=== PATIENT | female | born 1935 | race Caucasian/White ===

== ENCOUNTER → 2016-03-30 | Outpatient (CLI) | payer MEDICARE ==
[~2016-03-30] MED LIST: AMLO5TAB2 GT; AMLO5TAB2 PO; ASP81TEC PO; ATOR20TA66 PO; BNZ20T PO; ESCT10T PO; EZET1TAB44 PO; IRON1CAP10 PO; IRON1CAP11 PO; LOTENSIN HCT PO; METO-272 PO; NFNEB10T PO; OMEP-10 PO; POTA10CA43 PO; UBID50CA PO
--- OUTSIDE RECORDS SUMMARY | 2016-03-30 08:45 | XMS REPORT | Continuity of Care Document ---
Author Author [facility] Organization [facility] Address Unknown Phone Unavailable Care Team Providers Care Records Management Specialist Name Role Phone Amilcar Alicea III PCP [phone] Source Comments Some departments are not documenting in the electronic medical record. If you do not see the information that you expected, contact Release of Information in the Health Information Management department at [phone] for further assistance in locating additional records.[facility] Active Allergies and Adverse Reactions Allergen Noted Date Severity Reactions Comments Pcn 06/17/2015 Low UNKNOWN Current Medications Prescription Sig. Disp. Refills Start End Date Status Date CALCIUM CARBONATE/VITAMIN Take by mouth. Active D3 (VITAMIN D-3 PO) amLODIPine (NORVASC) 5 mg Take 5 mg by mouth daily. Active tablet benazepril (LOTENSIN) 20 Take 20 mg by mouth Active mg tablet daily. nebivolol (BYSTOLIC) 10 Take 10 mg by mouth Active mg tablet daily. metoclopramide HCl Take 5 mg by mouth four Active (REGLAN) 5 mg tablet times daily. atorvastatin (LIPITOR) 10 Take 10 mg by mouth Active mg tablet daily. aspirin EC 81 mg tablet Take 81 mg by mouth Active daily. CYANOCOBALAMIN (VITAMIN Take by mouth. Active B-12) (VITAMIN B-12 PO) Active Problems Problem Noted Date Left thyroid nodule 06/17/2015 Neck mass 06/17/2015 Social History Tobacco Use Types Packs/Day Years Used Date Never Smoker Smokeless Tobacco: Never Used Alcohol Use Drinks/Week oz/Week Comments No Last Filed Vital Signs Vital Sign Reading Time Taken Blood Pressure 146/75 10/28/2015 10:42 AM CDT Pulse 66 10/28/2015 10:42 AM CDT Temperature 36.5 C (97.7 F) 07/12/2015 9:06 AM CDT Respiratory Rate - - Height 1.549 m (5' 1") 10/28/2015 10:42 AM CDT Weight 83.553 kg (184 lb 3.2 oz) 10/28/2015 10:42 AM CDT Body Mass Index 34.82 10/28/2015 10:42 AM CDT Oxygen Saturation 98% 07/12/2015 11:15 AM CDT Plan of Care Date Type Specialty Providers Description 05/04/2016 Appointment Radiology Elvira Valerio MD [address] [facility] [place] [address] [place] [address] [phone] (Fax) 05/04/2016 Appointment Otolaryngology Elvira Valerio MD [address] [facility] [address] [place] [address] [phone] (Fax) Health Maintenance Due Date Last Done Comments Physical (Comprehensive) 12/18/1942 Exam Pertussis Vaccine 12/18/1946 Tetanus Vaccine 12/18/1952 Shingles Vaccine 1995 Osteoporosis Screening 12/18/2000 Prevnar/Pneumovax (#1) 12/18/2000 Influenza Vaccine 11/21/2015 Results from Last 3 Months Not on file
--- NOTE | 2016-03-31 09:27 | ECHOCARDIOGRAPHY REPORT ---
PROCEDURE PHYSICIAN: MARIA ELENA DUDLEY DATE OF PROCEDURE: 03/30/2016 TWO DIMENSIONAL ECHOCARDIOGRAM REPORT PRIMARY PHYSICIAN: OTHER PHYSICIAN: REFERRING PHYSICIAN: Dr. Alicea ORDERING PHYSICIAN: INDICATION FOR THE PROCEDURE: Valvular heart disease, aortic regurgitation MEASUREMENTS DERIVED VALUES LV DIAMETER (LAX) NORMALS NORMALS Diastolic 5.1 (3.6-5.2) Eject. Fract. 60% (60%+/-6%) Systolic (2.3-3.9) Diastolic Vol. % Shortening (0.22-0.42) Systolic Vol. Aortic Root IVS THICKNESS Diastolic 1.1 (0.6-1.1) LVPW THICKNESS Diastolic 1.1 (0.6-1.1) LA DIAMETER Systolic 5.4 (2.1-3.7) FINDINGS: 1. Technical quality is good. 2. The left ventricle is normal in size with normal with normal contractility. Systolic function appeared to be normal. Estimated ejection fraction 60%. 3. The left atrium is dilated. No clot or thrombus were seen within the left atrium. 4. The right atrium and right ventricle are normal in size. No clot or thrombus were seen within the right side. 5. Mitral valve evaluation showed mitral annular calcification with myxomatous degeneration of the mitral leaflet. No mitral valve prolapse. No mitral valve stenosis. Color Doppler flow across the mitral valve showed mild mitral regurgitation. Doppler across the mitral valve showed pseudonormalization of E:A which is suggestive diastolic dysfunction. 6. Aortic valve leaflet appeared to be normal. There is no significant aortic valve stenosis. Mild to moderate aortic regurgitation noted by color Doppler flow. 7. Tricuspid valve is normal in morphology with mild tricuspid regurgitation noted by color Doppler flow. Doppler across tricuspid valve estimated pulmonary artery pressure of 35+ right atrial pressure. 8. Pulmonic valve is functioning normally. 9. No pericardial effusion. CONCLUSION: 1. Normal left ventricular size and systolic function. Estimated ejection fraction 60%. 2. Left atrial enlargement. 3. Diastolic dysfunction is suggested by Doppler. 4. Mild to moderate aortic regurgitation. 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 5. Estimated pulmonary artery pressure of 40 to 45 mmHg. Job ID: [id number] Dictated Date: 03/30/2016 16:38:58 Video Systems Engineer Date: 03/31/2016 09:21:20 / nadira
== END ==
LOC: CARD 08:41
PROVIDERS: ATTEND Physician Assistant
DX: I35.1 Nonrheumatic aortic (valve) insufficiency (principal); I65.23 Occlusion and stenosis of bilateral carotid arteries; I10 Essential (primary) hypertension; E78.2 Mixed hyperlipidemia
CPT/HCPCS: 93306

== ENCOUNTER 2016-09-11 23:15 | Observation (INO) | payer MEDICARE ==
[~2016-09-11] VITALS: Ht 157.5 cm; Wt 79.4 kg
[2016-09-11] MEDS ORDERED: fentaNYL INJECTION 100 MCG/2 ML AMP IVP STA (23:35)
[2016-09-11] MEDS ORDERED: NS IV 1000 ML 1,000 ML IV ONE (23:35)
[2016-09-11] MEDS ORDERED: METO5TAB2 (23:38)
[2016-09-11 23:41] LABS: BASOPHILS % (AUTO) 0 % (0-10); EOSINOPHILS # (AUTO) 0.2 10^3/uL (0.0-0.3); EOSINOPHILS % (AUTO) 2 % (0-10); LYMPHOCYTES # (AUTO) 3.4 X 10^3 (1.0-4.0); LYMPHOCYTES % (AUTO) 33 % (12-44); MEAN CORPUSCULAR HEMOGLOBIN 22 PG (25-34); MEAN CORPUSCULAR HGB CONC 32 G/DL (32-36); MEAN CORPUSCULAR VOLUME 70 FL (80-99); MEAN PLATELET VOLUME 9.9 FL (7.4-10.4); MONOCYTES # (AUTO) 1.1 X 10^3 (0.0-1.0); MONOCYTES % (AUTO) 11 % (0-12); NEUTROPHILS # (AUTO) 5.7 X 10^3 (1.8-7.8); NEUTROPHILS % (AUTO) 54 % (42-75); PLATELET COUNT 302 10^3/uL (130-400); RED CELL DISTRIBUTION WIDTH 17.6 % (10.0-14.5); WHITE BLOOD COUNT 10.6 10^3/uL (4.3-11.0)
[2016-09-11] MEDS ORDERED: TETANUS,DIPTH,PERTUSS P/F (BOOSTRIX) 0.5 ML VIAL IM ONE (23:45)
[2016-09-11 23:53] LABS: INR 1.1 (0.8-1.4); PROTHROMBIN TIME PATIENT 13.7 SEC (12.2-14.7)
[2016-09-12 00:01] LABS: ALANINE AMINOTRANSFERASE 6 U/L (0-55); ALBUMIN 3.1 GM/DL (3.2-4.5); ANION GAP 10 MMOL/L (5-14); ASPARTATE AMINO TRANSFERASE 11 U/L (5-34); BILIRUBIN,TOTAL 0.5 MG/DL (0.1-1.0); BLOOD UREA NITROGEN 9 MG/DL (7-18); BUN/CREATININE RATIO 11 (0-20); CALCIUM 8.7 MG/DL (8.5-10.1); CARBON DIOXIDE 22 MMOL/L (21-32); CHLORIDE 106 MMOL/L (98-107); CREATININE SERUM 0.85 MG/DL (0.60-1.30); GFR ESTIMATED > 60; GLUCOSE 171 MG/DL (70-105); HEMOLYSIS 4 (-100-29); ICTERUS 0.4 (-100-1.9); LIPEMIA 8 (-100-49); MAGNESIUM 1.6 MG/DL (1.8-2.4); POTASSIUM 3.5 MMOL/L (3.6-5.0); SODIUM 138 MMOL/L (135-145); TOTAL PROTEIN 6.3 GM/DL (6.4-8.2)
--- NOTE | 2016-09-12 00:06 | ED Fall/Injury ---
General Chief Complaint: Trauma-Non Activation Stated Complaint: RT WRIST INJURY Nursing Triage Note: fall from standing position, right wrist pain, bruise to right forehead. no loc. Source: patient History of Present Illness Time seen by provider: 23:25 Initial Comments PT ARRIVES VIA POV FROM HOME WITH FAMILY MEMBERS PT STATES SHE GOT LIGHTHEADED AND WEAK AND FELL--DID NOT COMPLETELY LOSE CONSCIOUSNESS PT LANDED ON THE FLOOR WAS WITNESSED BY MULTIPLE FAMILY MEMBERS C/O RIGHT WRIST PAIN--PT FRACTURED THIS WRIST IN , BUT NO SURGERY REQUIRED. ALSO HIT RIGHT FOREHEAD ON THE FLOOR NO VISION CHANGES NO NAUSEA/VOMITING NO CHEST PAIN OR SHORTNESS OF BREATH NO PALPITATIONS PT IS LEFT HANDED PT STATES SHE HAS BEEN GETTING LIGHTHEADED LATELY--STATES SHE IS ON 3 BP MEDICATIONS AND THINKS LATELY THEY HAVE BEEN CAUSING HER TO FEEL THIS WAY-- THINKS BP IS GETTING TOO LOW Location Injury Occurred: home PCP: DR. RAMESH WOOL AND PELT GRADER: DR. DUDLEY Allergies and Home Medications Allergies Coded Allergies: No Known Drug Allergies (Unverified , 01/02/10) Home Medications Amlodipine Besylate 5 Mg Tab, 5 MG GT, (Reported) Aspirin 81 Mg Tabec, 81 MG PO DAILY, (Reported) Atorvastatin 20 Mg Tablet, 20 MG PO HS, (Reported) Benazepril Hcl 20 Mg Tablet, 20 MG PO DAILY, (Reported) Iron Aspgly&Ps/C/B12/Fa/Ca/Suc 1 Each Capsule, 1 CAP PO DAILY, (Reported) Metoclopramide HCl 5 Mg Tablet, #90 (Reported) Nebivolol Hcl 10 Mg Tablet, 10 MG PO DAILY, (Reported) Omeprazole 20 Mg Capsule.dr, 20 MG PO DAILY, (Reported) Constitutional: see HPI, dizziness, weakness Eyes: No Symptoms Reported Ears, Nose, Mouth, Throat: no symptoms reported Respiratory: no symptoms reported Cardiovascular: No chest pain, No edema, No palpitations, No vascular heart diseas, other (NEAR-SYNCOPE/LIGHTHEADED) Gastrointestinal: no symptoms reported Genitourinary: no symptoms reported Musculoskeletal: see HPI (RIGHT WRIST PAIN WITH 2 LACERATIONS TO RIGHT WRIST) Skin: see HPI (2 LACERATIONS TO RIGHT WRIST) Psychiatric/Neurological: See HPI, Denies Headache, Denies Numbness, Denies Paresthesia, Denies Seizure, Denies Tingling, Denies Tremors Past Anfofsu-Nsoifg-Vfmpky Hx Patient Social History Alcohol Use: Denies Use Recreational Drug Use: No Smoking Status: Never a Smoker 2nd Hand Smoke Exposure: No Recent Foreign Travel: No Contact w/Someone Who Travel: No Recent Infectious Disease Expo: No Recent Hopitalizations: No Immunizations Up To Date Tetanus Booster (TDap): More than 5yrs PED Vaccines UTD: Yes Date of Pneumonia Vaccine: Aug 20, 2012 Date of Influenza Vaccine: Nov 20, 2014 Seasonal Allergies Seasonal Allergies: No Surgeries HX Surgeries: Yes (t&a,appy hysterectomy,gallbladder,thyroid,cataracts) Surgeries: Adenoidectomy, Appendectomy, Eye Surgery, Gallbladder, Hysterectomy , Thyroidectomy, Tonsillectomy Respiratory Hx Respiratory Disorders: No Cardiovascular Hx Cardiac Disorders: Yes (IRREGULAR HEART BEAT- irregular ekg) Cardiac Disorders: High Cholesterol, Hypertension Neurological Hx Neurological Disorders: No Reproductive System : No Hx Reproductive Disorders: No 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 Genitourinary Hx Genitourinary Disorders: No Gastrointestinal Hx Gastrointestinal Disorders: Yes Gastrointestinal Disorders: Gastroesophageal Reflux Musculoskeletal Hx Musculoskeletal Disorders: Yes (RIGHT WRIST FX -NO SURGERY) Endocrine Hx Endocrine Disorders: Yes (PARATHYROIDECTOMY in ) Endocrine Disorders: Parathyroid Disease HEENT HX ENT Disorders: Yes (both cataracts removed) HEENT Disorders: Cataract Loss of Vision: Denies Hearing Impairment: Denies Cancer Hx Cancer: No Psychosocial Hx Psychiatric Problems: No Integumentary HX Skin/Integumentary Disorder: No Blood Transfusions Hx Blood Disorders: No Adverse Reaction to a Blood Tr: No Physical Exam Vital Signs Vital Sign - Last 12Hours 09/11/ 23:38 Temp 97.5 Pulse 53 Resp 16 B/P (MAP) 74/48 Pulse Ox 93 O2 Delivery Room Air Capillary Refill : Less Than 3 Seconds General Appearance: WD/WN, no apparent distress HEENT: PERRL/EOMI, TMs normal, pharynx normal, other (HEMATOMA TO RIGHT FOREHEAD/SIKHISM AREA. ) Neck: non-tender, full range of motion, supple, normal inspection Cardiovascular: normal peripheral pulses, regular rate, rhythm, no edema, no JVD, no murmur Respiratory: normal breath sounds, no respiratory distress, no accessory muscle use Peripheral Pulses: 2+ Radial Pulses (R), 2+ Radial Pulses (L) Gastrointestinal: normal bowel sounds, non tender, soft, no organomegaly, no pulsatile mass Back: normal inspection, no CVA tenderness, no vertebral tenderness Extremities: no pedal edema, no calf tenderness, normal capillary refill, other (DEFORMITY, SWELLING AND TENDERNESS TO RIGHT WRIST. 2 LINEAR FULL- THICKNESS LACERATIONS TO ANTERIOR ASPECT OF RIGHT WRIST--EACH 1 1/2-2 CM IN LENGTH. DISTAL MOTOR/SENSORY/VASCULAR INTACT) Neurologic/Psychiatric: polysomnographer II-XII nml as tested, no motor/sensory deficits, alert, normal mood/affect, oriented x 3 Skin: normal color, warm/dry Kwasi Coma Score Best Eye Response: (4) Open Spontaneously Best Verbal Response: (5) Oriented Best Motor Response: (6) Obeys Commands Manquin Total: 15 Progress/Results/Core Measures Results/Orders Lab Results Laboratory Tests Test 09/11/16 23:35 Range/Units White Blood Count 10.6 4.3-11.0 10^3/uL Red Blood Count 4.80 4.35-5.85 10^6/uL Hemoglobin 10.6 L 11.5-16.0 G/DL Hematocrit 34 L 35-52 % Mean Corpuscular Volume 70 L 80-99 FL Mean Corpuscular Hemoglobin 22 L 25-34 PG Mean Corpuscular Hemoglobin Concent 32 32-36 G/DL Red Cell Distribution Width 17.6 H 10.0-14.5 % Platelet Count 302 130-400 10^3/uL Mean Platelet Volume 9.9 7.4-10.4 FL Neutrophils (%) (Auto) 54 42-75 % Lymphocytes (%) (Auto) 33 12-44 % Monocytes (%) (Auto) 11 0-12 % Eosinophils (%) (Auto) 2 0-10 % Basophils (%) (Auto) 0 0-10 % Neutrophils # (Auto) 5.7 1.8-7.8 X 10^3 Lymphocytes # (Auto) 3.4 1.0-4.0 X 10^3 Monocytes # (Auto) 1.1 H 0.0-1.0 X 10^3 Eosinophils # (Auto) 0.2 0.0-0.3 10^3/uL Basophils # (Auto) 0.0 0.0-0.1 10^3/uL Prothrombin Time 13.7 12.2-14.7 SEC INR Comment 1.1 0.8-1.4 Activated Partial Thromboplast Time 31 24-35 SEC Sodium Level 138 135-145 MMOL/L Potassium Level 3.5 L 3.6-5.0 MMOL/L Chloride Level 106 98-107 MMOL/L Carbon Dioxide Level 22 21-32 MMOL/L Anion Gap 10 5-14 MMOL/L Blood Urea Nitrogen 9 7-18 MG/DL Creatinine 0.85 0.60-1.30 MG/DL Estimat Glomerular Filtration Rate > 60 BUN/Creatinine Ratio 11 0-20 Glucose Level 171 H 70-105 MG/DL Calcium Level 8.7 8.5-10.1 MG/DL Magnesium Level 1.6 L 1.8-2.4 MG/DL Total Bilirubin 0.5 0.1-1.0 MG/DL Aspartate Amino Transf (AST/SGOT) 11 5-34 U/L Alanine Aminotransferase (ALT/SGPT) 6 0-55 U/L Alkaline Phosphatase 64 40-136 U/L Troponin I < 0.30 <0.30 NG/ML Total Protein 6.3 L 6.4-8.2 GM/DL Albumin 3.1 L 3.2-4.5 GM/DL TSH [place] Testing 2.32 0.35-4.94 UIU/ML My Orders Orders - MELANIE WEST DO Saline Lock/Iv-Start (09/11/16 23:35) Ekg Tracing (09/11/16 23:35) Monitor-Rhythm Ecg Trace Only (09/11/16 23:35) Ct Head/Cervical Spine Wo (09/11/16 23:35) Cbc With Automated Diff (09/11/16 23:35) Comprehensive Metabolic Panel (09/11/16 23:35) Magnesium (09/11/16 23:35) Protime With Inr (09/11/16 23:35) Partial Thromboplastin Time (09/11/16 23:35) Thyroid Analyzer (09/11/16 23:35) Troponin I (09/11/16 23:35) Ua Culture If Indicated (09/11/16 23:35) Saline Lock/Iv-Start (09/11/16 23:35) Ns Iv 1000 Ml (Sodium Chloride 0.9%) (09/11/16 23:35) Fentanyl Injection (Sublimaze Injection (09/11/16 23:35) Dipht,Pertuss(Acell),Tet Adult (Boostrix (09/11/16 23:45) Chest 1 View, Ap/Pa Only (09/12/16 23:35) Forearm, Right, 2 Views (09/12/16 23:35) Wrist, Right, 3 Views Or More (09/12/16 23:35) Pelvis (09/12/16 23:35) Cefazolin Injection (Ancef Injection) (09/12/16 00:30) Medications Given in ED Current Medications Medications Dose Ordered Sig/Dariusz Route Start Time Stop Time Status Last Admin Dose Admin Cefazolin Sodium 1000 mg/Sodium Chloride 50 ml @ 100 mls/hr ONCE ONCE IV 09/12/16 00:30 09/12/16 01:00 DC 09/12/16 00:31 100 MLS/HR Diphtheria/ Tetanus/Acell Pertussis 0.5 ml ONCE ONCE IM 09/11/16 23:45 09/11/16 23:46 DC 09/11/16 23:47 0.5 ML Sodium Chloride 1,000 ml @ 0 mls/hr Q0M ONCE IV 09/11/16 23:35 09/11/16 23:38 DC 09/11/16 23:46 0 MLS/HR Vital Signs/I&O Vital Sign - Last 12Hours 09/11/16 23:38 Temp 97.5 Pulse 53 Resp 16 B/P (MAP) 74/48 Pulse Ox 93 O2 Delivery Room Air Blood Pressure Mean: 57 ECG Initial ECG Impression Time: 23:38 Initial ECG Rate: 54 Initial ECG Rhythm: Normal Sinus Initial ECG Impression: Nonspecific Changes Initial ECG Comparisson: Unchanged Diagnostic Imaging Comments CXR--MILD CHF/CARDIOMEGALY XRAYS PELVIS--NO ACUTE PROCESS XRAYS RIGHT FOREARM AND WRIST--COMMINUTED, DISPLACED FX'S OF DISTAL RADIUS AND ULNA ALL PENDING RADIOLOGIST REVIEW CT HEAD--NO ACUTE PROCESS, OTHER THAN RIGHT FRONTAL SCALP SWELLING--PER [facility] VIA FAX @[id number] CT CERVICAL SPINE Reviewed: Reviewed by Me Departure Communication Progress Notes 0020--CALLED DR. JUSTICE, WILL BE IN TO SEE PT 0040--DR. JUSTICE CALLED. HE WOULD LIKE SURGERY CREW CALLED IN 005--OFFICE ASSISTANCE HERE TO SEE PT 0120--DR. JUSTICE HERE TO SEE PT. CARE TURNED OVER TO HIM. Impression Impression: Primary Impression: OPEN DISPLACED COMMINUTED FRACTURE RIGHT DISTAL RADIUS AND ULNA Additional Impressions: Head contusion Near syncope Transient hypotension Ayvzjewtfs-zxzfsgjep-ouzzghl (DPT) vaccination administered at current visit Disposition: ADMITTED INPATIENT (TO SURGERY) Condition: Stable Decision to Admit Reason: Admit from ER (Trauma) (TO SURGERY) Departure-Patient Inst. Referrals: JENAE RAMESH DO (PCP/Family) Primary Care Physician Images Full Body/Extremities Full Progress SEE ADDITIONAL PAPER DIAGRAMS FOR IMAGES MELANIE WEST DO Sep 12, 2016 00:06
[2016-09-12 00:21] LABS: TROPONIN I < 0.30 NG/ML (<0.30)
[2016-09-12] MEDS ORDERED: ceFAZolin INJECTION 1,000 MG in NS (IVPB) 50 ML IV ONE (00:30)
[2016-09-12] MEDS ORDERED: LACTATED RINGERS 1,000 ML IV PRN (01:23)
[2016-09-12] MEDS ORDERED: LIDOCAINE PF 2% 5 ML (XYLOCAINE) VIAL ONE (01:25)
[2016-09-12] MEDS ORDERED: proPOfol 200 MG/20 ML (DIPRIVAN) VIAL IV ONE (01:25)
[2016-09-12] MEDS ORDERED: SUCCINYLCHOLINE INJ 100 MG/5 ML SYR ONE (01:25)
[2016-09-12] MEDS ORDERED: fentaNYL INJECTION 100 MCG/2 ML AMP ONE ×3 (01:26→05:11)
--- NOTE | 2016-09-12 01:43 | Consultation ---
History of Present Illness History of Present Illness Patient Consulted On(tc/time) 09/12/16 01:38 Date of Admission History of Present Illness 80 y/o white female, left handed, fell this evening injuring her right non- dominate wrist and hitting her right yazdanism. She had prior wrist fracture years ago. Denies any other complaints of pain. Denies any other fracture history. Allergies and Home Medications Allergies Coded Allergies: No Known Drug Allergies (Unverified , 01/02/10) Home Medications Amlodipine Besylate 5 Mg Tab, 5 MG GT, (Reported) Aspirin 81 Mg Tabec, 81 MG PO DAILY, (Reported) Atorvastatin 20 Mg Tablet, 20 MG PO HS, (Reported) Benazepril Hcl 20 Mg Tablet, 20 MG PO DAILY, (Reported) Iron Aspgly&Ps/C/B12/Fa/Ca/Suc 1 Each Capsule, 1 CAP PO DAILY, (Reported) Metoclopramide HCl 5 Mg Tablet, #90 (Reported) Nebivolol Hcl 10 Mg Tablet, 10 MG PO DAILY, (Reported) Omeprazole 20 Mg Capsule.dr, 20 MG PO DAILY, (Reported) Past Qnfmjqh-Tqwaoa-Prmavy Hx Patient Social History Alcohol Use: Denies Use Recreational Drug Use: No Smoking Status: Never a Smoker 2nd Hand Smoke Exposure: No Recent Foreign Travel: No Contact w/Someone Who Travel: No Recent Infectious Disease Expo: No Recent Hopitalizations: No Immunizations Up To Date Tetanus Booster (TDap): More than 5yrs PED Vaccines UTD: Yes Date of Pneumonia Vaccine: Aug 20, 2012 Date of Influenza Vaccine: Nov 20, 2014 Seasonal Allergies Seasonal Allergies: No Surgeries HX Surgeries: Yes (t&a,appy hysterectomy,gallbladder,thyroid,cataracts) Surgeries: Adenoidectomy, Appendectomy, Eye Surgery, Gallbladder, Hysterectomy , Thyroidectomy, Tonsillectomy Respiratory Hx Respiratory Disorders: No Cardiovascular Hx Cardiac Disorders: Yes (IRREGULAR HEART BEAT- irregular ekg) Cardiac Disorders: High Cholesterol, Hypertension Neurological Hx Neurological Disorders: No Reproductive System : No Hx 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 Genitourinary Hx Genitourinary Disorders: No Gastrointestinal Hx Gastrointestinal Disorders: Yes Gastrointestinal Disorders: Gastroesophageal Reflux Musculoskeletal Hx Musculoskeletal Disorders: Yes (RIGHT WRIST FX -NO SURGERY) Endocrine Hx Endocrine Disorders: Yes (PARATHYROIDECTOMY in ) Endocrine Disorders: Parathyroid Disease HEENT HX ENT Disorders: Yes (both cataracts removed) HEENT Disorders: Cataract Loss of Vision: Denies Hearing Impairment: Denies Cancer Hx Cancer: No Psychosocial Hx Psychiatric Problems: No Integumentary HX Skin/Integumentary Disorder: No Blood Transfusions Hx Blood Disorders: No Adverse Reaction to a Blood Tr: No Review of Systems-General Time Seen by Provider: 01:40 Constitutional: no symptoms reported EENTM: no symptoms reported Respiratory: no symptoms reported Cardiovascular: no symptoms reported Gastrointestinal: no symptoms reported Musculoskeletal: joint pain Skin: other (open wound right wrist) Physical Exam-General Problems Physical Exam Vital Signs Vital Sign - Last 12Hours 09/11/16 23:38 Temp 97.5 Pulse 53 Resp 16 B/P (MAP) 74/48 Pulse Ox 93 O2 Delivery Room Air Capillary Refill : Less Than 3 Seconds General Appearance: mild distress Eyes: Bilateral Eye Normal Inspection HEENT: normal ENT inspection Neck: non-tender, supple, normal inspection Respiratory: chest non-tender, no respiratory distress, no accessory muscle use Cardiovascular: normal peripheral pulses, regular rate, rhythm Gastrointestinal: non tender, soft, no organomegaly Rectal: deferred Back: no CVA tenderness, no vertebral tenderness Extremities: other (left upper and bilateral lower extremitites fail to show signs of any significant trauma. Right upper extremity has open fracture at wrist, with obvious deformity.) Skin: normal color Lymphatic: no adenopathy Comments xrays show displaced distal 1/3 radius and comminuted ulna fractures on right. Assessment/Plan Assessment/Plan Admission Diagnosis/Plan Right open Distal radial shaft/ulna shaft fractures Plan: Irrigation and debridement and external fixation. SE JUSTICE MD Sep 12, 2016 01:43
[2016-09-12] MEDS ORDERED: ceFAZolin 1,000 MG (ANCEF) VIAL ONE (02:07)
[2016-09-12] MEDS ORDERED: SEVOFLURANE (ULTANE) 15 ML INHAL SOLN ONE (02:07)
[2016-09-12] MEDS ORDERED: ONDANSETRON 4 MG/2 ML (SDV) Z0FRAN ONE (02:07)
[2016-09-12] MEDS ORDERED: morphine INJ 10 MG/ML 1ML (SYR OR VIAL) ONE (02:26)
[2016-09-12] MEDS ORDERED: MEPERIDINE (DEMEROL) INJ 50 MG/ML ONE (02:27)
[2016-09-12] MEDS ORDERED: ceFAZolin 1,000 MG (ANCEF) VIAL IV ONE (02:30)
--- NOTE | 2016-09-12 02:57 | Progress Note-Post Operative ---
Post-Operative Progess Note Surgeon (s)/Plastic Fixture Builder (s) Surgeon SE JUSTICE MD Plastic Fixture Builder: None Pre-Operative Diagnosis Right open distal 1/3 radius/ulna shaft fractures Post-Operative Diagnosis same Procedure & Operative Findings Date of Procedure 09/12/16 Procedure Performed/Findings Irrigation and debridement of open fracture skin and sub cutaneous External fixation uniplaner Closed treatment of radius and ulna shaft fractures distal Anesthesia Type GETA Estimated Blood Loss Estimated blood loss (mL): Min Specimens/Packing Specimens Removed none SE JUSTICE MD Sep 12, 2016 2:57 am
[2016-09-12] MEDS ORDERED: METOCLOPRAMIDE INJ 10 MG/2 ML (REGLAN) IV PRN (03:00)
[2016-09-12] MEDS ORDERED: PROMETHAZINE INJ 25 MG/ML (PHENERGAN) AMP IV PRN (03:00)
[2016-09-12] MEDS ORDERED: ONDANSETRON 4 MG/2 ML (SDV) Z0FRAN IV PRN (03:00)
[2016-09-12] MEDS ORDERED: HYDROcodone/APAP 10 MG/325 MG (LORTAB) TAB PO PRN (03:00)
[2016-09-12] MEDS ORDERED: ONDANSETRON 4 MG/2 ML (SDV) Z0FRAN IVP PRN (03:15)
[2016-09-12] MEDS: morphine INJ 10 MG/ML 1ML (SYR OR VIAL) IVP PRN ×2 (03:25→03:30)
[2016-09-12 04:10] VITALS: BP 121/67
--- NOTE | 2016-09-12 05:04 | OPERATIVE REPORT ---
DATE OF SERVICE: 09/12/2016 PREOPERATIVE DIAGNOSES: Right open distal third radius and ulnar shaft fractures, comminuted. POSTOPERATIVE DIAGNOSES: Right open distal third radius and ulnar shaft fractures, comminuted. PROCEDURE PERFORMED: 1. Irrigation and debridement, skin and subcutaneous tissue of open fracture, right wrist. 2. Uniplanar external fixator, right distal radius. 3. Closed treatment of right open distal third of radial shaft and ulnar fractures. DATE AND TIME OF SURGERY: Please see anesthesia record. IMPLANTS USED: [place] monotube. SURGEON: Se Rodriguez MD FARMWORKERS: No front office assistant. ANESTHESIA: General endotracheal. ESTIMATED BLOOD LOSS: Minimal. IV FLUIDS: Please see anesthesia record. ANTIBIOTICS: Ancef. COMPLICATIONS: None. INDICATIONS FOR PROCEDURE: The patient is an 80-year-old female who fell at home sustaining the above injury. After the risks, benefits, alternatives were discussed with her and her family, they elected to proceed with operative intervention. DESCRIPTION OF PROCEDURE: The patient was taken from the preoperative holding area and brought back to the operative suite. After adequate induction of general anesthetic, preoperative antibiotics, sterilely prepped and draped right upper extremity. Arm, skin and subcutaneous tissue were copiously irrigated with antibiotic-enhanced irrigant. Once the wounds were cleansed, small incision was made over the distal radius with fluoroscopic guidance in the mid radius and then utilizing the drill guide for the monotube from the monotube external fixator set, Schanz pins were placed into the distal radius and the radial shaft and then the monotube fixator was placed. Reduction was achieved. Final tightening was performed. Final imaging was obtained. It was stable under fluoroscopic evaluation. Wounds were then closed with a single nylon. Sterile dressings applied and the patient was transferred to the recovery room in stable condition and tolerated the procedure well. 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
--- NOTE | 2016-09-12 06:39 | Diagnostic Imaging Report ---
PROCEDURE: CT head and CT cervical spine without contrast. TECHNIQUE: Multiple contiguous axial images were obtained through the brain and cervical spine without the use of intravenous contrast. Sagittal and coronal reformations through the cervical spine were then performed. INDICATION: Fall, dizziness. COMPARISON: No priors. FINDINGS: CT head: There is no intracranial hemorrhage, hydrocephalus, edema, mass, or mass effect. Mild chronic white matter disease and slight senescent cortical atrophy noted as chronic findings. No calvarial fracture deformity is identified. There is mild right frontal scalp swelling. CT cervical spine: Spondylosis greatest at the C5-C6 level results in vnom-ci-lyykgrfr canal stenosis. No cervical fracture or paravertebral hemorrhage. The skull base appears intact. No acute or posttraumatic sequelae. IMPRESSION: CT head: Mild chronic senescent changes and soft tissue swelling. No hemorrhage or fracture deformity. CT cervical spine: Cervical degenerative changes without fracture or traumatic malalignment. Dictated by: Dictated on workstation # [id number]
--- NOTE | 2016-09-12 08:07 | Diagnostic Imaging Report ---
INDICATION: Fall FINDINGS: The heart is enlarged. There is some prominence of central and upper lobe pulmonary venous structures. No sara edema. Heart size and vascular caliber progressed from the comparison study performed in 2013. There is some patchy infiltrate or atelectasis in the medial left lung base. IMPRESSION: Increased cardiomegaly and vascular congestion. No sara edema however there is infiltrate or atelectasis in the medial left lower lobe. Dictated by: Dictated on workstation # [id number]
--- NOTE | 2016-09-12 08:08 | Diagnostic Imaging Report ---
INDICATION: Fractures. There are comminuted fractures of both distal radius and ulna. 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 There is widening of the distal radioulnar joint. Fracture fragment overlaps both the radius and ulna present. The major distal fragments are only mildly displaced laterally. Proximal shafts and elbow grossly unremarkable. IMPRESSION: Displaced comminuted fractures of the distal radius and ulna. Dictated by: Dictated on workstation # [id number]
--- NOTE | 2016-09-12 08:09 | Diagnostic Imaging Report ---
INDICATION: Pain. FINDINGS: There is no fracture, dislocation, or acute articular incongruity. IMPRESSION: No acute-appearing abnormality. Dictated by: Dictated on workstation # [id number]
--- NOTE | 2016-09-12 08:10 | Diagnostic Imaging Report ---
INDICATION: Fracture FINDINGS: Comminuted displaced fractures of the distal radius and ulna. 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 No carpal fracture evident. No appreciable articular involvement. IMPRESSION: Distal radial and ulnar fractures without articular injury evident. There is radial greater than ulnar displacement with radial overlap and foreshortening of about 1.5 cm. Dictated by: Dictated on workstation # [id number]
[2016-09-12 08:30] VITALS: BP 131/64
--- NOTE | 2016-09-12 09:25 | Diagnostic Imaging Report ---
INDICATION: Fracture. IMPRESSION: Fluoroscopy time of one minute was utilized during external fixation of comminuted distal radial and ulnar fractures. When correlated with preoperative films there has been marked improvements in alignment with resolution of radial overlap. Dictated by: Dictated on workstation # [id number]
[2016-09-12 12:00] VITALS: BP 117/68
--- NOTE | 2016-09-12 12:48 | History & Physical-Hospitalist ---
HPI History of Present Illness: HPI/Chief Complaint CC: Medical management following a right open wrist fracture HPI: This is an 80-year-old white female clinic patient of Dr. Alicea'kamaljit with a past medical history of hypertension that fell at home and resulted in a right open wrist fracture that was repaired by Dr. Rodriguez in an uncomplicated manner. She now has an external fixator and her pain is controlled. She does report that she felt a little dizzy thought maybe she was taking too much blood pressure medication and I have held the bystolic because she reports the fatigue level and will evaluate if that can help with her symptoms. She is currently staying with her daughter in [place] because her air conditioner was out but will return back to her daughter's home to recover after she's discharge tomorrow. Source: patient Exam Limitations: no limitations Date Seen 09/12/16 Time Seen by Provider: 11:45 Attending Physician Yunior Rodriguez MD PCP Tera Alicea DO Referring Physician Date of Admission Sep 12, 2016 at 04:05 Home Medications & Allergies Home Medications Reviewed patient Home Medication Reconciliation Form Allergies Allergies Coded Allergies No Known Drug Allergies (Wyjosaauhg81/14/10) Past Usditpy-Yzowet-Mipcua Hx Patient Social History Marrital Status: Employed/Student: retired Alcohol Use: Denies Use Recreational Drug Use: No Smoking Status: Never a Smoker 2nd Hand Smoke Exposure: No Physical Abuse Screen: No Sexual Abuse: No Recent Foreign Travel: No Contact w/other who traveled: No Recent Hopitalizations: No Recent Infectious Disease Expo: No Immunizations Up To Date Tetanus Booster (TDap): More than 5yrs Date of Pneumonia Vaccine: Aug 20, 2012 Date of Influenza Vaccine: Nov 20, 2014 Seasonal Allergies Seasonal Allergies: No Surgeries HX Surgeries: Yes (t&a,appy hysterectomy,gallbladder,thyroid,cataracts) Surgeries: Adenoidectomy, Appendectomy, Eye Surgery, Gallbladder, Hysterectomy , Thyroidectomy, Tonsillectomy Respiratory Hx Respiratory Disorders: No Cardiovascular Hx Cardiovascular Disorders: Yes (IRREGULAR HEART BEAT- irregular ekg) Cardiac Disorders: High Cholesterol, Hypertension Neurological Hx Neurological Disorders: No Reproductive System : No Hx Reproductive Disorders: No Genitourinary Hx Genitourinary Disorders: No Gastrointestinal Hx Gastrointestinal Disorders: Yes Gastrointestinal Disorders: Gastroesophageal Reflux Musculoskeletal Hx Musculoskeletal Disorders: Yes (RIGHT WRIST FX 1990'S-NO SURGERY) Endocrine Hx Endocrine Disorders: Yes (PARATHYROIDECTOMY in s) Endocrine Disorders: Parathyroid Disease HEENT HX ENT Disorders: Yes (both cataracts removed) HEENT Disorders: Cataract Loss of Vision: Denies Hearing Impairment: Denies Cancer Hx Cancer: No Psychosocial Hx Psychiatric Problems: No Integumentary HX Skin/Integumentary Disorder: No Blood Transfusions Hx Blood Disorders: No Adverse Reaction to a Blood Tr: No Review of Systems Date Seen by Provider: Sep 12, 2016 Time Seen by Provider: 11:45 Constitutional: see HPI, dizziness, weakness EENTM: no symptoms reported Respiratory: no symptoms reported Cardiovascular: no symptoms reported Gastrointestinal: no symptoms reported Genitourinary: no symptoms reported Musculoskeletal: joint pain (right wrist) Skin: no symptoms reported Psychiatric/Neurological: No Symptoms Reported All Other Systems Reviewed Negative Unless Noted: Yes Physical Exam Physical Exam Vital Signs Vital Sign - Last 12Hours 09/11/16 09/12/16 23:38 08:30 Temp 97.5 Pulse 53 Resp 16 B/P (MAP) 74/48 Pulse Ox 93 O2 Delivery Room Air O2 Flow Rate 4.00 Capillary Refill : Less Than 3 SecondsLess Than 3 Seconds General Appearance: No Apparent Distress, WD/WN, Chronically ill Eyes: Bilateral Eye Normal Inspection, Bilateral Eye PERRL HEENT: PERRL/EOMI, Normal ENT Inspection, Pharynx Normal Neck: Full Range of Motion, Normal Inspection, Non Tender, Supple, Carotid Bruit Respiratory: Chest Non Tender, Lungs Clear, Normal Breath Sounds, No Accessory Muscle Use, No Respiratory Distress Cardiovascular: Regular Rate, Rhythm, No Edema, No Gallop, No JVD, No Murmur, Normal Peripheral Pulses Gastrointestinal: Normal Bowel Sounds, No Organomegaly, No Pulsatile Mass, Non Tender, Soft Back: Normal Inspection, No CVA Tenderness, No Vertebral Tenderness Extremity: Normal Capillary Refill, Normal Inspection, Normal Range of Motion ( except right wrist in external fixator), Non Tender, No Calf Tenderness, No Pedal Edema Neurologic/Psychiatric: Alert, Oriented x3, No Motor/Sensory Deficits, Normal Mood/Affect Skin: Normal Color, Warm/Dry Lymphatic: No Adenopathy Results Results/Procedures Lab Laboratory Tests 09/11/16 23:35 Assessment/Plan Admission Diagnosis Assessment: Fall with right open wrist fracture status post uncomplicated repair POD # 0 ( 0100 surgery) Hypertension with recent dizziness and weakness will hold bystolic hyperlipidemia GERD Chronic constipation Hyperparathyroidism Assessment and Plan Plan: Pain medication Reconcile all home meds but hold bystolic Fall risk Monitor closely Clinical Quality Measures DVT/VTE Risk/Contraindication: Risk Factor Score Per Nursin RFS Level Per Nursing on Admit: 4+=Very High MARKO ANDERS DO Sep 12, 2016 12:48
[2016-09-12 15:43] VITALS: BP 138/67
[2016-09-12] MEDS: METOCLOPRAMIDE 5 MG (REGLAN) TAB PO SCH ×2 (15:49→21:27)
[2016-09-12] MEDS: ACETAMINOPHEN 325 MG TABLET/CAPLET (TYLENOL) PO PRN ×2 (15:52→21:27)
[2016-09-12 20:59] VITALS: BP 135/70
[2016-09-12] MEDS ORDERED: ATORVASTATIN 20 MG (LIPITOR) TABLET PO SCH (21:00)
[2016-09-13] VITALS: BP 145/72
[2016-09-13 04:00] VITALS: BP 157/72
[2016-09-13] MEDS: METOCLOPRAMIDE 5 MG (REGLAN) TAB PO SCH ×2 (06:33→11:37)
[2016-09-13] MEDS ORDERED: SULF1TAB35 PO (07:00)
[2016-09-13] MEDS ORDERED: AMOX-358 PO (07:00)
[2016-09-13] MEDS ORDERED: PANTOPRAZOLE 20 MG TABLET (PROTONIX) PO SCH (07:00)
--- NOTE | 2016-09-13 07:03 | Discharge Instructions ---
Discharge Instructions Discharge Medications New, Converted or Re-Newed RX: RX on Chart Patient Instructions Goal/Follow Up Appt: Follow up with Dr. Rodriguez, in [place], on 09/16/16. Call [facility] tomorrow to schedule the appointment Patient Instructions: Keep dressing clean and dry Do not use right hand Call with questions or concerns Activity & Diet Activity as Tolerated: RAS Rivera Sep 13, 2016 07:03
--- NOTE | 2016-09-13 07:08 | Discharge Summary ---
Diagnosis/Chief Complaint Date of Admission Sep 12, 2016 at 04:05 Date of Discharge Discharge Time: 07:04 Admission Diagnosis Admission Diagnosis open right distal ulna/radius fracture Discharge Diagnosis open right distal ulna/radius fracture Reason Hospital Visit fall resulting in right open wrist fracture Discharge Summary Hospital Course Hospital Course Patient experienced a fall and landed on her right wrist. She was brought to [facility] ER due to an open wrist fracture. Patient was evaluated by Dr. Rodriguez , and taken to the OR for right distal radius/ulna external fixator placement. Patient was admitted for an additional day, in order for her to receive IV antibiotics. There were no events during her hospital course. Labs Laboratory Tests 09/11/16 23:35: Hemoglobin 10.6L, Hematocrit 34L, Mean Corpuscular Volume 70L, Mean Corpuscular Hemoglobin 22L, Red Cell Distribution Width 17.6H, Monocytes # (Auto) 1.1H, Potassium Level 3.5L, Glucose Level 171H, Magnesium Level 1.6L, Total Protein 6.3L, Albumin 3.1L Procedures right radius/ulna external fixator placement, and wound closure Discharge Physical Examination Allergies: Coded Allergies: No Known Drug Allergies (Unverified , 01/02/10) Vitals & I&Os Vital Signs Date Time Temp Pulse Resp B/P (MAP) Pulse Ox O2 Delivery O2 Flow Rate FiO2 09/13/16 04:00 96.4 66 18 157/72 92 Nasal Cannula 4.00 General Appearance: Alert, Oriented X3 Respiratory: Normal Air Movement Abdominal: Soft Extremities: Other (Right wrist external fixator in place. Moves all fingers, sensation intact. Capillary refill <3 seconds) Neuro: Normal Tone, Sensation Intact Psych/Mental Status: Mental Status NL Discharge Home Medications Reviewed and agree with Discharge Medication list on patient's Discharge Instruction sheet Instructions to Patient/Family Please see electonic discharge instructions given to patient. Clinical Quality Measures DVT/VTE Risk/Contraindication: Risk Factor Score Per Nursin RFS Level Per Nursing on Admit: 4+=Very High RAS AGUILAR Sep 13, 2016 07:08
[2016-09-13 08:00] VITALS: BP 166/76
[2016-09-13] MEDS ORDERED: BENAZEPRIL 20 MG (LOTENSIN) TAB PO SCH (09:00)
[2016-09-13] MEDS ORDERED: amLODIPine 5 MG (NORVASC) TAB PO SCH (09:00)
[2016-09-13] MEDS ORDERED: ASPIRIN E.C. 81 MG (ECOTRIN) TAB PO SCH (09:00)
--- NOTE | 2016-09-13 09:58 | Anesthesia-General Post-Op ---
General Patient Condition Mental Status/LOC: Same as Preop Cardiovascular: Satisfactory Nausea/Vomiting: Absent Respiratory: Satisfactory Pain: Controlled Complications: Absent Post Op Complications Complications None Follow Up Care/Instructions Patient Instructions None needed. Anesthesia/Patient Condition Patient Condition Patient is doing well, no complaints, stable vital signs, no apparent adverse anesthesia problems. No complications reported per nursing. MODESTA CANAS CRNA Sep 13, 2016 09:58
--- NOTE | 2016-09-13 12:24 | Progress Note-Hospitalist ---
Progress Note HPI/CC on Admission CC: Medical management following a right open wrist fracture HPI: This is an 80-year-old white female clinic patient of Dr. Alicea's with a past medical history of hypertension that fell at home and resulted in a right open wrist fracture that was repaired by Dr. Rodriguez in an uncomplicated manner. She now has an external fixator and her pain is controlled. She does report that she felt a little dizzy thought maybe she was taking too much blood pressure medication and I have held the bystolic because she reports the fatigue level and will evaluate if that can help with her symptoms. She is currently staying with her daughter in [place] because her air conditioner was out but will return back to her daughter's home to recover after she's discharge tomorrow. Progress Notes/Assess & Plan Date Seen 09/13/16 Time Seen by Provider: 11:30 Admission Dx/Process Assessment: Fall with right open wrist fracture status post uncomplicated repair POD # 0 ( 0100 surgery) Hypertension with recent dizziness and weakness will hold bystolic hyperlipidemia GERD Chronic constipation Hyperparathyroidism Diagonsis/Assessment & Plan Patient doing much better and denies any pain currently Has an appointment on Wednesday with Dr. Rodriguez due to external fixator evaluation Will hold beta fran until she calls Dr. Alicea on Wednesday for direction Vitals are stable No fever, vital signs stable, pleasant, improved Regular rate and rhythm, clear to auscultation bilaterally Right wrist with external fixator and dressing in place Assessment: Fall with right open wrist fracture status post uncomplicated repair POD # 1 Hypertension with recent dizziness and weakness will hold Bystolic hyperlipidemia GERD Chronic constipation Hyperparathyroidism Plan: Pain medication Reconcile all home meds but hold bystolic Fall risk Monitor closel Obtain appointment with primary care provider regarding blood pressure medication evaluation MARKO ANDERS DO Sep 13, 2016 12:24
--- OUTSIDE RECORDS SUMMARY | 2016-09-14 16:14 | XMS REPORT | Continuity of Care Document ---
Author Author [facility] Organization [facility] Address Unknown Phone Unavailable Care Team Providers Care Rf Engineer Name Role Phone Tera Alicea III PCP [phone] Source Comments Some departments are not documenting in the electronic medical record. If you do not see the information that you expected, contact Release of Information in the Health Information Management department at [phone] for further assistance in locating additional records.[facility] Active Allergies and Adverse Reactions Allergen [...] by mouth. Active B-12) (VITAMIN B-12 PO) DOCOSAHEXANOIC ACID/EPA Take by mouth. Active (FISH OIL PO) Active Problems Problem Noted Date Left thyroid nodule 06/17/2015 Neck mass 06/17/2015 Social History Tobacco Use Types Packs/Day Years Used Date Never Smoker Smokeless Tobacco: Never Used Alcohol Use Drinks/Week oz/Week Comments No Last Filed Vital Signs Vital Sign Reading Time Taken Blood Pressure 94/58 05/04/2016 1:33 PM [employer] Pulse 65 05/04/2016 1:33 PM [employer] Temperature 36.5 C (97.7 F) 07/12/2015 9:06 AM CDT Respiratory Rate - - Height 1.549 m (5' 1") 05/04/2016 1:33 PM [employer] Weight 84.097 kg (185 lb 6.4 oz) 05/04/2016 1:33 PM [employer] Body Mass Index 35.05 05/04/2016 1:33 PM [employer] Oxygen Saturation 98% 07/12/2015 11:15 AM CDT Plan of Care Health Maintenance Due Date Last Done Comments Physical (Comprehensive) 12/18/1942 Exam Pertussis Vaccine 12/18/1946 Tetanus Vaccine 12/18/1952 Shingles Vaccine 1995 Osteoporosis Screening 12/18/2000 Prevnar/Pneumovax (#1) 12/18/2000 Influenza Vaccine 11/20/2016 Results from Last 3 Months Not on file
--- OUTSIDE RECORDS SUMMARY | 2016-09-14 16:14 | XMS REPORT | Continuity of Care Document ---
Author Author [facility] Organization [facility] Address Unknown Phone Unavailable Allergies Active Description Code Type Severity Reaction Onset Reported/Identified Relationship to Patient Clinical Status Yes No Known Drug Allergies [id number] Drug Allergy Unknown N/ A 01/02/2010 Medications Problems Date Dx Coded Attending Type Code Diagnosis Diagnosed By 01/03/2010 Ot 272.4 01/03/2010 Ot 300.00 01/03/2010 Ot 401.9 01/03/2010 Ot 786.59 02/01/2012 Ot 562.10 DIVERTICULOSIS COLON (W/O MENT OF HEMORR 02/01/2012 Ot V58.66 LONG-TERM (CURRENT) USE OF ASPIRIN 02/01/2012 Ot V58.69 OTH MED,LT,CURRENT USE 02/01/2012 Ot V76.51 SCREEN MAL NEOP-COLON 12/06/2012 MARIA ELENA DUDLEY MD Ot 272.4 HYPERLIPIDEMIA NEC/NOS 12/06/2012 MARIA ELENA DUDLEY MD Ot 273.8 DIS PLAS PROTEIN MET NEC 12/06/2012 MARIA ELENA DUDLEY MD Ot 275.2 DIS MAGNESIUM METABOLISM 12/06/2012 MARIA ELENA DUDLEY MD Ot 276.1 HYPOSMOLALITY 12/06/2012 MARIA ELENA DUDLEY MD Ot 285.9 ANEMIA NOS 12/06/2012 MARIA ELENA DUDLEY MD Ot 401.9 HYPERTENSION NOS 12/06/2012 MARIA ELENA DUDLEY MD Ot 530.81 ESOPHAGEAL REFLUX 12/06/2012 MARIA ELENA DUDLEY MD Ot 553.20 VENTRAL HERNIA NOS 12/06/2012 MARIA ELENA DUDLEY MD Ot 782.4 JAUNDICE NOS 12/06/2012 MARIA ELENA DUDLEY MD Ot 786.09 RESPIRATORY ABNORM NEC 12/06/2012 MARIA ELENA DUDLEY MD Ot 786.59 CHEST PAIN NEC 12/06/2012 MARIA ELENA DUDLEY MD Ot 787.02 NAUSEA ALONE 12/06/2012 MARIA ELENA DUDLEY MD Ot 794.31 ABNORM ELECTROCARDIOGRAM 03/12/2014 MARIA ELENA DUDLEY MD Ot 272.4 03/12/2014 OCTAVIA AYERS, MARIA ELENA Fitzgerald Ot 396.3 03/12/2014 OCTAVIA AYERS, MARIA ELENA Fitzgerald Ot 397.0 03/12/2014 OCTAVIA AYERS, MARIA ELENA Fitzgerald Ot 401.9 03/12/2014 MARIA ELENA DUDLEY MD Ot 782.3 02/28/2015 Ot V72.84 02/28/2015 Ot 401.9 02/28/2015 Ot 416.8 02/28/2015 Ot 424.1 02/28/2015 Ot 428.30 02/28/2015 MARY AYERS, SERGIO Ot 786.50 02/28/2015 MARY AYERS, SERGIO Ot 794.31 02/28/2015 SERGIO HERNANDEZ MD Ot 275.2 02/28/2015 MARY AYERS, SAMINASEVALENTIN Ot 276.1 02/28/2015 SERGIO HERNANDEZ MD Ot 396.3 02/28/2015 SERGIO HERNANDEZ MD Ot 397.0 02/28/2015 MARY AYERS, ANNABELLEYASEELAN Ot 429.3 02/28/2015 MARY AYERS, ANNABELLEYASEELAN Ot 786.50 02/28/2015 MARY AYERS, ANNABELLEYASEVALENTIN Ot 790.5 02/28/2015 MARY AYERS, SAMINASEELAN Ot 794.31 02/28/2015 MARY AYERS, ANNABELLEYASEELAN Ot 275.2 02/28/2015 MARY AYERS, ANNABELLEYASEELAN Ot 276.1 02/28/2015 ANNABELLE HERNANDEZ MDYASEELAN Ot 786.50 02/28/2015 MARY AYERS, ANNABELLEYASEELAN Ot 790.5 02/28/2015 MARY AYERS, ANNABELLEYASEELAN Ot 794.31 02/28/2015 MARIA ELENA DUDLEY MD Ot 272.4 02/28/2015 MARIA ELENA DUDLEY MD Ot 396.3 02/28/2015 MARIA ELENA DUDLEY MD Ot 397.0 02/28/2015 MARIA ELENA DUDLEY MD Ot 401.9 02/28/2015 MARIA ELENA DUDLEY MD Ot 782.3 03/21/2015 MARIA ELENA DUDLEY MD Ot E78.2 03/21/2015 MARIA ELENA DUDLEY MD Ot I10 03/21/2015 MARIA ELENA DUDLEY MD Ot I35.1 03/21/2015 MARIA ELENA DUDLEY MD Ot I65.23 03/26/2015 MARIA ELENA DUDLEY MD Ot E78.2 03/26/2015 MARIA ELENA DUDLEY MD Ot I10 03/26/2015 MARIA ELENA DUDLEY MD Ot I35.1 03/26/2015 MARIA ELENA DUDLEY MD Ot I65.23 04/29/2015 GADIEL JENAE DIEGO Ot M81.0 05/02/2015 GADIEL DIEGO JENAE Fitzgerald Ot M81.0 03/30/2016 Ot V72.84 EXAM PRE-OPERATIVE NOS 03/30/2016 Ot 401.9 HYPERTENSION NOS 03/30/2016 Ot 416.8 CHR PULMON HEART DIS NEC 03/30/2016 Ot 424.1 AORTIC VALVE DISORDER 03/30/2016 Ot 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 03/30/2016 SERGIO HERNANDEZ MD Ot 786.50 CHEST PAIN NOS 03/30/2016 SERGIO HERNANDEZ MD Ot 794.31 ABNORM ELECTROCARDIOGRAM 03/30/2016 SERGIO HERNANDEZ MD Ot 275.2 DIS MAGNESIUM METABOLISM 03/30/2016 SERGIO HERNANDEZ MD Ot 276.1 HYPOSMOLALITY 03/30/2016 SERGIO HERNANDEZ MD Ot 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 03/30/2016 SERGIO HERNANDEZ MD Ot 397.0 TRICUSPID VALVE DISEASE 03/30/2016 SERGIO HERNANDEZ MD Ot 429.3 CARDIOMEGALY 03/30/2016 SERGIO HERNANDEZ MD Ot 786.50 CHEST PAIN NOS 03/30/2016 SERGIO HERNANDEZ MD Ot 790.5 ABN SERUM ENZY LEVEL NEC 03/30/2016 SERGIO HERNANDEZ MD Ot 794.31 ABNORM ELECTROCARDIOGRAM 03/30/2016 SERGIO HERNANDEZ MD Ot 275.2 DIS MAGNESIUM METABOLISM 03/30/2016 SERGIO HERNANDEZ MD Ot 276.1 HYPOSMOLALITY 03/30/2016 SERGIO HERNANDEZ MD Ot 786.50 CHEST PAIN NOS 03/30/2016 SERGIO HERNANDEZ MD Ot 790.5 ABN SERUM ENZY LEVEL NEC 03/30/2016 ANNABELLE HERNANDEZ MDYASEELAN Ot 794.31 ABNORM ELECTROCARDIOGRAM 03/30/2016 MARIA ELENA DUDLEY MD Ot 272.4 HYPERLIPIDEMIA NEC/NOS 03/30/2016 MARIA ELENA DUDLEY MD Ot 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 03/30/2016 MARIA ELENA DUDLEY MD Ot 397.0 TRICUSPID VALVE DISEASE 03/30/2016 MARIA ELENA DUDLEY MD Ot 401.9 HYPERTENSION NOS 03/30/2016 MARIA ELENA DUDLEY MD Ot 782.3 EDEMA 03/30/2016 MARIA ELENA DUDLEY MD Ot E78.2 MIXED HYPERLIPIDEMIA 03/30/2016 MARIA ELENA DUDLEY MD Ot I10 ESSENTIAL (PRIMARY) HYPERTENSION 03/30/2016 MARIA ELENA DUDLEY MD Ot I35.1 NONRHEUMATIC AORTIC (VALVE) INSUFFICIENC 03/30/2016 MARIA ELENA DUDLEY MD Ot I65.23 OCCLUSION AND STENOSIS OF BILATERAL [place] 03/30/2016 JENAE RAMESH DO Ot M81.0 AGE-RELATED OSTEOPOROSIS W/O CURRENT PAT 03/31/2016 PURVI LO Ot E78.2 MIXED HYPERLIPIDEMIA 03/31/2016 PURVI LO Ot I10 ESSENTIAL (PRIMARY) HYPERTENSION 03/31/2016 PURVI LO Ot I35.1 NONRHEUMATIC AORTIC (VALVE) INSUFFICIENC 03/31/2016 PURVI LO Ot I65.23 OCCLUSION AND STENOSIS OF BILATERAL [place] 03/31/2016 PURVI LO Ot E78.2 MIXED HYPERLIPIDEMIA 03/31/2016 PURVI LO Ot I10 ESSENTIAL (PRIMARY) HYPERTENSION 03/31/2016 PURVI LO Ot I35.1 NONRHEUMATIC AORTIC (VALVE) INSUFFICIENC 03/31/2016 PURVI LO Ot I65.23 OCCLUSION AND STENOSIS OF BILATERAL [place] 04/22/2016 PURVI LO Ot E78.2 MIXED HYPERLIPIDEMIA 04/22/2016 PURVI LO Ot I10 ESSENTIAL (PRIMARY) HYPERTENSION 04/22/2016 PURVI LO Ot I35.1 NONRHEUMATIC AORTIC (VALVE) INSUFFICIENC 04/22/2016 PURVI LO Ot I65.23 OCCLUSION AND STENOSIS OF BILATERAL [place] 04/29/2016 PURVI LO Ot E78.2 MIXED HYPERLIPIDEMIA 04/29/2016 PURVI LO Ot I10 ESSENTIAL (PRIMARY) HYPERTENSION 04/29/2016 PURVI LO Ot I35.1 NONRHEUMATIC AORTIC (VALVE) INSUFFICIENC 04/29/2016 PURVI LO Ot I65.23 OCCLUSION AND STENOSIS OF BILATERAL ESPINOZA Procedures Results Test Result Range Complete blood count (CBC) with automated white blood cell (WBC) differential - 09/11/16 23:35 Blood leukocytes automated count (number/volume) 10.6 10*3/ uL 4.3-11.0 Blood erythrocytes automated count (number/volume) 4.80 10*6 /uL 4.35-5.85 Venous blood hemoglobin measurement (mass/volume) 10.6 g/dL 11.5-16.0 Blood hematocrit (volume fraction) 34 % 35-52 Automated erythrocyte mean corpuscular volume 70 [foz_us] 80-99 Automated erythrocyte mean corpuscular hemoglobin (mass per erythrocyte) 22 pg 25-34 Automated erythrocyte mean corpuscular hemoglobin concentration measurement ( mass/volume) 32 g/dL 32-36 Automated erythrocyte distribution width ratio 17.6 % 10.0-14.5 Automated blood platelet count (count/volume) 302 10*3/uL 130-400 Automated blood platelet mean volume measurement 9.9 [foz_us ] 7.4-10.4 Automated blood neutrophils/100 leukocytes 54 % 42-75 Automated blood lymphocytes/100 leukocytes 33 % 12-44 Blood monocytes/100 leukocytes 11 % 0-12 Automated blood eosinophils/100 leukocytes 2 % 0-10 Automated blood basophils/100 leukocytes 0 % 0-10 Blood neutrophils automated count (number/volume) 5.7 10*3 1.8-7.8 Blood lymphocytes automated count (number/volume) 3.4 10*3 1.0-4.0 Blood monocytes automated count (number/volume) 1.1 10*3 0.0-1.0 Automated eosinophil count 0.2 10*3/uL 0.0-0.3 Automated blood basophil count (count/volume) 0.0 10*3/uL 0.0-0.1 PT panel in platelet poor plasma by coagulation assay - 09/11/16 23:35 Prothrombin time (PT) in platelet poor plasma by coagulation assay 13.7 s 12.2-14.7 INR in platelet poor plasma or blood by coagulation assay 1.1 0.8-1.4 Activated partial thromboplastin time (aPTT) in platelet poor plasma bycoagulation assay - 09/11/16 23:35 Activated partial thromboplastin time (aPTT) in platelet poor plasma bycoagulation assay 31 s 24-35 Comprehensive metabolic panel - 09/11/16 23:35 Serum or plasma sodium measurement (moles/volume) 138 mmol/ L 135-145 Serum or plasma potassium measurement (moles/volume) 3.5 mmol/L 3.6-5.0 Serum or plasma chloride measurement (moles/volume) 106 mmol /L 98-107 Carbon dioxide 22 mmol/L 21-32 Serum or plasma anion gap determination (moles/volume) 10 mmol/L 5-14 Serum or plasma urea nitrogen measurement (mass/volume) 9 mg /dL 7-18 Serum or plasma creatinine measurement (mass/volume) 0.85 mg /dL 0.60-1.30 Serum or plasma urea nitrogen/creatinine mass ratio 11 0-20 Serum or plasma creatinine measurement with calculation of estimated glomerular filtration rate > NRG Serum or plasma glucose measurement (mass/volume) 171 mg/dL 70-105 Serum or plasma calcium measurement (mass/volume) 8.7 mg/dL 8.5-10.1 Serum or plasma total bilirubin measurement (mass/volume) 0.5 mg/dL 0.1-1.0 Serum or plasma alkaline phosphatase measurement (enzymatic activity/volume) 64 U/L 40-136 Serum or plasma aspartate aminotransferase measurement (enzymatic activity/ volume) 11 U/L 5-34 Serum or plasma alanine aminotransferase measurement (enzymatic activity/volume ) 6 U/L 0-55 Serum or plasma protein measurement (mass/volume) 6.3 g/dL 6.4-8.2 Serum or plasma albumin measurement (mass/volume) 3.1 g/dL 3.2-4.5 Magnesium - 09/11/16 23:35 Magnesium 1.6 mg/dL 1.8-2.4 Serum or plasma troponin i.cardiac measurement (mass/volume) - 09/11/16 23:35 Serum or plasma troponin i.cardiac measurement (mass/volume) < ng/mL <0.30 Serum or plasma thyrotropin measurement by detection limit <=0.05 miu/l (units/ volume) - 09/11/16 23:35 Serum or plasma thyrotropin measurement by detection limit <=0.05 miu/l (units/ volume) 2.32 u[iU]/mL 0.35-4.94 Encounters ACCT No. Visit Date/Time Discharge Status Pt. Type Provider Facility Loc./Unit Complaint [id number] 11/18/2014 14:00:00 2014 23:59:59 CLS Outpatient АНДРЕЙ KAMARA APRN [facility] QUICK [id number] 01/23/2014 10:46:00 2013 23:59:59 CLS Outpatient MARIA ELENA DUDLEY MD [facility] CARD AR,HTN,HLP,SKYLER,PERIPHERAL EDEMA [id number] 12/14/2012 07:37:00 2012 23:59:59 CLS Outpatient SERGIO HERNANDEZ MD [facility] RAD CHEST PAIN [id number] 12/12/2012 10:35:00 2012 23:59:59 CLS Outpatient SERGIO HERNANDEZ MD [facility] CARD CHEST PAIN [id number] 12/08/2012 09:19:00 2012 23:59:59 CLS Outpatient SERGIO HERNANDEZ MD [facility] LAB CP,ABN ECH,LOW MG,LOW LIYA, ELEVATED ALK PHOS [id number] 12/05/2012 22:00:00 2012 13:00:00 DIS Inpatient MARIA ELENA DUDLEY MD [facility] 4TH CHEST PAIN [id number] 09/12/2016 04:05:00 ACT Inpatient SE JUSTICE MD [facility] 4TH RT WRIST INJURY [id number] 03/30/2016 08:41:00 ACT Outpatient PURVI VANN [facility] CARD AR,HTN, [id number] 04/04/2015 12:39:00 ACT Outpatient JENAE RAMESH DO [facility] AGE-RELATED OSTEOPOROSIS M81.0 [id number] 02/28/2015 07:43:00 ACT Outpatient OCTAVIA AYERS, MARIA ELENA Fitzgerald [facility] CARD AR, CAROTID ARTERY STENOSIS, HTN, HYPERLIPIDEMIA [id number] 06/30/2012 08:32:00 Document Registration [id number] 02/01/2012 08:03:00 Document Registration [id number] 01/29/2012 08:02:00 Document Registration [id number] 01/02/2010 09:25:00 Document Registration
--- OUTSIDE RECORDS SUMMARY | 2016-09-14 16:14 | XMS REPORT | Continuity of Care Document ---
Author Author [facility] Organization [facility] Address Unknown Phone Unavailable Care Team Providers Care Sort Operations Supervisor Name Role Phone Tera Alicea III PCP [phone] Source Comments Some departments are not documenting in the electronic medical record. If you do not see the information that you expected, contact Release of Information in the Health Information Management department at [phone] for further assistance in locating additional records.[facility] Active Allergies and Adverse Reactions Allergen [...] Taken Blood Pressure 94/58 05/04/2016 1:33 PM DEPUTY MANAGER Pulse 65 05/04/2016 1:33 PM DEPUTY MANAGER Temperature 36.5 C (97.7 F) 07/12/2015 9:06 AM CDT Respiratory Rate - - Height 1.549 m (5' 1") 05/04/2016 1:33 PM DEPUTY MANAGER Weight 84.097 kg (185 lb 6.4 oz) 05/04/2016 1:33 PM DEPUTY MANAGER Body Mass Index 35.05 05/04/2016 1:33 PM DEPUTY MANAGER Oxygen Saturation 98% 07/12/2015 11:15 AM CDT Plan of Care Health Maintenance Due Date Last Done Comments Physical (Comprehensive) 12/18/1942 Exam Pertussis Vaccine 12/18/1946 Tetanus Vaccine 12/18/1952 Shingles Vaccine 1995 Osteoporosis Screening 12/18/2000 Prevnar/Pneumovax (#1) 12/18/2000 Influenza Vaccine 11/20/2016 Results from Last 3 Months Not on file
--- OUTSIDE RECORDS SUMMARY | 2016-09-14 16:15 | XMS REPORT | Continuity of Care Document ---
Author Author [facility] Organization [facility] Address Unknown Phone Unavailable Allergies Active Description Code Type Severity Reaction Onset Reported/Identified Relationship to Patient Clinical Status Yes No Known Drug Allergies [id number] Drug Allergy Unknown N/ A 01/02/2010 Medications [...] Ot I35.1 NONRHEUMATIC AORTIC (VALVE) INSUFFICIENC 03/31/2016 PUVRI LO Ot I65.23 OCCLUSION AND STENOSIS OF [...] Status Pt. Type Provider Facility Loc./Unit Complaint [id number] 11/18/2014 14:00:00 2014 23:59:59 CLS Outpatient АНДРЕЙ KAMARA APRN [facility] QUICK [id number] 01/23/2014 10:46:00 2013 23:59:59 CLS Outpatient MARIA ELENA DUDLEY MD [facility] CARD AR,HTN,HLP,SKYLER,PERIPHERAL EDEMA [id number] 12/14/2012 07:37:00 2012 23:59:59 CLS Outpatient SERGIO HERNANDEZ MD [facility] RAD CHEST PAIN [id number] 12/12/2012 10:35:00 2012 23:59:59 CLS Outpatient SERGIO HERNANDEZ MD [facility] CARD CHEST PAIN [id number] 12/08/2012 09:19:00 2012 23:59:59 CLS Outpatient SERGIO HERNANDEZ MD [facility] LAB CP,ABN ECH,LOW MG,LOW LIYA, ELEVATED ALK PHOS [id number] 12/05/2012 22:00:00 2012 13:00:00 DIS Inpatient MARIA ELENA DUDLEY MD [facility] 4TH CHEST PAIN [id number] 09/12/2016 04:05:00 ACT Inpatient SE JUSTICE MD [facility] 4TH RT WRIST INJURY [id number] 03/30/2016 08:41:00 ACT Outpatient PURVI VANN [facility] CARD AR,HTN, [id number] 04/04/2015 12:39:00 ACT Outpatient JENAE RAMESH DO [facility] AGE-RELATED OSTEOPOROSIS M81.0 [id number] 02/28/2015 07:43:00 ACT Outpatient OCTAVIA AYERS, MARIA ELENA Fitzgerald [facility] CARD AR, CAROTID ARTERY STENOSIS, HTN, HYPERLIPIDEMIA [id number] 06/30/2012 08:32:00 Document Registration [id number] 02/01/2012 08:03:00 Document Registration [id number] 01/29/2012 08:02:00 Document Registration [id number] 01/02/2010 09:25:00 Document Registration
--- OUTSIDE RECORDS SUMMARY | 2016-09-14 16:30 | XMS REPORT | Continuity of Care Document ---
Author Author [facility] Organization [facility] Address Unknown Phone Unavailable Care Team Providers Care Marketing Programs Manager Name Role Phone Tera Alicea III PCP [phone] Source Comments Some departments are not documenting in the electronic medical record. If you do not see the information that you expected, contact Release of Information in the Health Information Management department at [phone] for further assistance in locating additional records.[facility] Active Allergies and Adverse Reactions Allergen [...] Taken Blood Pressure 94/58 05/04/2016 1:33 PM PRINCIPAL PROGRAMMER Pulse 65 05/04/2016 1:33 PM PRINCIPAL PROGRAMMER Temperature 36.5 C (97.7 F) 07/12/2015 9:06 AM CDT Respiratory Rate - - Height 1.549 m (5' 1") 05/04/2016 1:33 PM PRINCIPAL PROGRAMMER Weight 84.097 kg (185 lb 6.4 oz) 05/04/2016 1:33 PM PRINCIPAL PROGRAMMER Body Mass Index 35.05 05/04/2016 1:33 PM PRINCIPAL PROGRAMMER Oxygen Saturation 98% 07/12/2015 11:15 AM CDT Plan of Care Health Maintenance Due Date Last Done Comments Physical (Comprehensive) 12/18/1942 Exam Pertussis Vaccine 12/18/1946 Tetanus Vaccine 12/18/1952 Shingles Vaccine 1995 Osteoporosis Screening 12/18/2000 Prevnar/Pneumovax (#1) 12/18/2000 Influenza Vaccine 11/20/2016 Results from Last 3 Months Not on file
--- OUTSIDE RECORDS SUMMARY | 2016-09-14 16:31 | XMS REPORT | Continuity of Care Document ---
Author Author [facility] Organization [facility] Address Unknown Phone Unavailable Allergies Active Description Code Type Severity Reaction Onset Reported/Identified Relationship to Patient Clinical Status Yes No Known Drug Allergies [id number] Drug Allergy Unknown N/ A 01/02/2010 Medications [...] Ot I35.1 NONRHEUMATIC AORTIC (VALVE) INSUFFICIENC 04/29/2016 PURIV LO Ot I65.23 OCCLUSION AND STENOSIS OF [...] Status Pt. Type Provider Facility Loc./Unit Complaint [id number] 11/18/2014 14:00:00 2014 23:59:59 CLS Outpatient АНДРЕЙ KAMARA APRN [facility] QUICK [id number] 01/23/2014 10:46:00 2013 23:59:59 CLS Outpatient MARIA ELENA DUDLEY MD [facility] CARD AR,HTN,HLP,SKYLER,PERIPHERAL EDEMA [id number] 12/14/2012 07:37:00 2012 23:59:59 CLS Outpatient SERGIO HERNANDEZ MD [facility] RAD CHEST PAIN [id number] 12/12/2012 10:35:00 2012 23:59:59 CLS Outpatient SERGIO HERNANDEZ MD [facility] CARD CHEST PAIN [id number] 12/08/2012 09:19:00 2012 23:59:59 CLS Outpatient SERGIO HERNANDEZ MD [facility] LAB CP,ABN ECH,LOW MG,LOW LIYA, ELEVATED ALK PHOS [id number] 12/05/2012 22:00:00 2012 13:00:00 DIS Inpatient MARIA ELENA DUDLEY MD [facility] 4TH CHEST PAIN [id number] 09/12/2016 04:05:00 ACT Inpatient SE JUSTICE MD [facility] 4TH RT WRIST INJURY [id number] 03/30/2016 08:41:00 ACT Outpatient PURVI VANN [facility] CARD AR,HTN, [id number] 04/04/2015 12:39:00 ACT Outpatient JENAE RAMESH DO [facility] AGE-RELATED OSTEOPOROSIS M81.0 [id number] 02/28/2015 07:43:00 ACT Outpatient OCTAVIA AYERS, MARIA ELENA Fitzgerald [facility] CARD AR, CAROTID ARTERY STENOSIS, HTN, HYPERLIPIDEMIA [id number] 06/30/2012 08:32:00 Document Registration [id number] 02/01/2012 08:03:00 Document Registration [id number] 01/29/2012 08:02:00 Document Registration [id number] 01/02/2010 09:25:00 Document Registration
== END 2016-09-13 13:07 | disposition home or self-care (01) ==
LOC: EDUNIT# 23:15 → ER 23:17 → SDC 09-12 00:54 → 4TH 09-12 04:05
PROVIDERS: ADMIT Orthopaedic Surgery Orthopaedic Surgery of the Spine; ATTEND Orthopaedic Surgery Orthopaedic Surgery of the Spine
DX: S52.501B Unspecified fracture of the lower end of right radius, initial encounter for open fracture type I or II (principal); S52.601B Unspecified fracture of lower end of right ulna, initial encounter for open fracture type I or II; S00.83XA Contusion of other part of head, initial encounter; Z23 Encounter for immunization; I95.2 Hypotension due to drugs; R42 Dizziness and giddiness; I51.7 Cardiomegaly; E78.00 Pure hypercholesterolemia, unspecified; I10 Essential (primary) hypertension; Z79.82 Long term (current) use of aspirin; Z79.899 Other long term (current) drug therapy; W01.0XXA Fall on same level from slipping, tripping and stumbling without subsequent striking against object, initial encounter; Y92.009 Unspecified place in unspecified non-institutional (private) residence as the place of occurrence of the external cause; Y99.8 Other external cause status
CPT/HCPCS: 36415; 70450; 71010; 72125; 72170; 73090; 73110; 80053; 83735; 84443; 84484; 85025; 85610; 85730; 90715; 93005; 93041; 94664

== ENCOUNTER → 2017-07-02 | Outpatient (CLI) | payer MEDICARE ==
[~2017-07-02] MED LIST changes: +AMOX-358 PO; +ASCO10006 PO; +ASCO100T6 PO; +BIOT1TAB PO; +CA C1TAB79 PO; +MAGN300C PO; +METO5TAB2; +OMG1KC PO; +SULF1TAB35 PO
== END ==
LOC: CARD 09:06
PROVIDERS: ATTEND Internal Medicine Cardiovascular Disease
DX: R07.9 Chest pain, unspecified (principal); I08.0 Rheumatic disorders of both mitral and aortic valves; I65.29 Occlusion and stenosis of unspecified carotid artery; I10 Essential (primary) hypertension; E78.5 Hyperlipidemia, unspecified
CPT/HCPCS: 93225; 93226; 93306

== ENCOUNTER 2018-03-08 05:50 | Outpatient (CLI) | payer MEDICARE ==
[~2018-03-08] VITALS: Ht 157.5 cm; Wt 81.6 kg
[2018-03-08] MEDS ORDERED: ASPI-999 PO (14:19)
[2018-03-08] MEDS ORDERED: BENA40TA5 PO (14:19)
[2018-03-08] MEDS ORDERED: METO5TAB2 PO (14:19)
== END 2018-03-08 14:24 ==
LOC: PREOP 05:50
PROVIDERS: ATTEND Surgery
DX: Z01.818 Encounter for other preprocedural examination (principal)

== ENCOUNTER 2018-03-14 10:48 | Day surgery (SDC) | payer MEDICARE ==
[~2018-03-14] VITALS: Ht 157.5 cm; Wt 81.6 kg
[~2018-03-14 10:48] MED LIST changes: +ASPI-999 PO; +BENA40TA5 PO; +METO5TAB2 PO
[2018-03-14 10:52] VITALS: BP 152/73
[2018-03-14] MEDS ORDERED: NS IV 500 ML 500 ML IV PRN (11:05)
[2018-03-14] MEDS ORDERED: NS IV 500 ML 500 ML ONE (11:08)
[2018-03-14] MEDS ORDERED: MIDAZOLAM 2 MG/2 ML (VERSED) VIAL IVP ONE (11:15)
[2018-03-14] MEDS ORDERED: fentaNYL INJECTION 100 MCG/2 ML AMP IVP ONE (11:15)
[2018-03-14] MEDS ORDERED: HURRICAINE EXT TUBE (BENZOCAINE) XX PRN (11:15)
--- NOTE | 2018-03-14 11:28 | History & Physicial ---
History of Present Illness History of Present Illness Reason for visit/HPI to undergo upper endoscopy with colonoscopy to investigate iron deficiency anemia and heme positive stools Date of Admission 03/14/18 Date Seen by a Provider: Mar 14, 2018 Time Seen by a Provider: 11:26 I consulted on this patient on 03/14/18 11:25 Attending Physician Thomas Esquivel MD Admitting Physician Tera Alicea DO Consult Allergies and Home Medications Allergies Coded Allergies: No Known Drug Allergies (Unverified , 03/08/18) Home Medications Aspirin 81 Mg Tab.chew, 81 MG PO DAILY, (Reported) Benazepril HCl 40 Mg Tab, 40 MG PO DAILY, (Reported) Metoclopramide HCl 5 Mg Tablet, 5 MG PO AC, (Reported) Patient Home Medication List Home Medication List Reviewed: Yes Past Vvhjpsr-Kmjvcq-Rygsqn Hx Patient Social History Marrital Status: Employed/Student: retired 2[employer] Hand Smoke Exposure: No Recent Foreign Travel: No Contact w/other who traveled: No Recent Hopitalizations: No Immunizations Up To Date Tetanus Booster (TDap): More than 5yrs Pediatric: Yes Date of Pneumonia Vaccine: Aug 20, 2012 Date of Influenza Vaccine: Dec 27, 2017 Seasonal Allergies Seasonal Allergies: No Surgeries Yes (t&a,appy hysterectomy,gallbladder,thyroid,cataracts) Adenoidectomy, Appendectomy, Eye Surgery, Gallbladder, Hysterectomy, Thyroidectomy, Tonsillectomy Respiratory No Cardiovascular Yes (IRREGULAR HEART BEAT- irregular ekg) High Cholesterol, Hypertension Neurological No Reproductive System Hx Reproductive Disorders: No Sexually Transmitted Disease: No 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 History: Menopausal Genitourinary No Gastrointestinal Yes Gastroesophageal Reflux, Chronic Constipation Musculoskeletal Yes (RIGHT WRIST FX -NO SURGERY) Endocrine History of Endocrine Disorders: Yes (PARATHYROIDECTOMY in ) Endocrine Disorders: Parathyroid Disease HEENT History of HEENT Disorders: Yes HEENT Disorders: Cataract Loss of Vision: Denies Hearing Impairment: Denies Cancer No Psychosocial History of Psychiatric Problem: No Integumentary History of Skin or Integumenta: No Blood Transfusions History of Blood Disorders: No Adverse Reaction to a Blood Tr: No (HAS HAD BLOOD WITH NO REACTION) Review of Systems Constitutional: malaise EENTM: no symptoms reported Respiratory: no symptoms reported Cardiovascular: no symptoms reported Gastrointestinal: see HPI Genitourinary: no symptoms reported Musculoskeletal: joint pain Skin: no symptoms reported Psychiatric/Neurological: No Symptoms Reported Physical Exam Vital Signs Capillary Refill : Height, Weight, BMI Height: 5'2.00" Weight: 180lbs. 0.0oz. 81.533354ye; 32.9 BMI Method:Stated General Appearance: No Apparent Distress Neck: Normal Inspection Respiratory: Lungs Clear Cardiovascular: Regular Rate, Rhythm Gastrointestinal: Non Tender, Soft Rectal: Deferred Neurologic/Psychiatric: Oriented x3 Skin: Warm/Dry Assessment/Plan Assessment and Plan lady with iron deficiency anemia. For upper endoscopy with colonoscopy Admission Diagnosis Admission Status: Other (Outpt Proc) THOMAS ESQUIVEL MD Mar 14, 2018 11:28
--- NOTE | 2018-03-14 11:28 | Conscious Sedation/ASA ---
Conscious Sedation Pre-Proced Time 11:28 ASA Score 2 For ASA 3 and 4: Consider anesthesia and medical clearance. Also, for patients with a history of failed moderate sedation consider anesthesia. Airway Lungs Heart ASA score ASA 1: a normal healthy patient ASA 2: a patient with a mild systemic disease (mid diabetes, controlled hypertension, obesity ASA 3: a patient with a severe systemic disease that limits activity (angina , COPD, prior Myocardial infarction) ASA 4: a patient with an incapacitating disease that is a constant threat to life (CHF, renal failure) ASA 5: a moribund patient not expected to survive 24 hrs. (ruptured aneurysm) ASA 6: a declared brain patient whose organs are being harvested. For emergent operations, add the letter E after the classification Mallampati Classification Grade 1 Sedation Plan Discussed options with patient/fam The patient is an appropriate candidate to undergo the planned procedure, sedation, and anesthesia. The patient immediately re-assessed prior to indication. THOMAS ESQUIVEL MD Mar 14, 2018 11:28
[2018-03-14] MEDS ORDERED: MIDAZOLAM 2 MG/2 ML (VERSED) VIAL ONE ×3 (12:20→12:21)
[2018-03-14] MEDS ORDERED: fentaNYL INJECTION 100 MCG/2 ML AMP ONE (12:20)
[2018-03-14] MEDS ORDERED: HURRICAINE EXT TUBE (BENZOCAINE) ONE (12:21)
--- NOTE | 2018-03-14 12:54 | Endo Procedure Record ---
Endo Procedure Report Date of Procedure Last Colonoscopy: Yes (UNSURE) Mar 14, 2018 Surgeon (s) THOMAS ESQUIVEL MD Post Procedure/Op Diagnosis EGD: Multiple distal gastric erosions Colonoscopy: Sigmoid diverticulosis Procedure Performed EGD with antral biopsy Colonoscopy to cecum Description of Procedure Anesthesia Type: Conscious Sedation Specimen(s) collected/removed antral mucosa for H. pylori Description of the Procedure Indication for the procedures: This lady came in for an upper endoscopy with concomitant colonoscopy, to investigate iron deficiency anemia and heme positive stools. In addition, she reported a personal history of polyps several years ago. Informed consent was obtained after reviewing the procedures in detail. Description of the procedures: EGD/antral biopsy: She was placed in left lateral decubitus position and her vital signs were monitored. Conscious sedation was achieved using Versed and fentanyl. The flexible gastroscope was then advanced down the esophagus, past the stomach, into the proximal duodenum. Findings: Esophagus: Normal Stomach: Multiple, shallow and acute erosions were found at the antrum. Biopsy for H. pylori was obtained. There was no active bleeding. Duodenum: Normal She tolerated the procedure well and was turned around in preparation for colonoscopy. Impression: Iron deficiency anemia with heme-positive stools. Multiple distal gastric erosions. H. pylori status pending. Colonoscopy: Digital rectal examination was unremarkable. The colonoscope was then introduced into the rectum and advanced all the way up to the cecum. The quality of bowel preparation was excellent. The scope was then withdrawn slowly and the mucosa examined in a systematic fashion. Findings: Sigmoid diverticulosis. No recurrent polyps were found. She tolerated the procedures well and was taken back to the nursing area in a stable condition. Impression: Iron deficiency anemia with heme-positive stools. No recurrent polyps. Copy Copies To 1: JENAE RAMESH XAVIER M MD Mar 14, 2018 12:54
--- NOTE | 2018-03-14 12:56 | Discharge Inst-Simple/Standard ---
Discharge Inst-Standard Discharge Medications New, Converted or Re-Newed RX: Other Patient Instructions/Follow Up Plan of Care/Instructions/FU: please call for Protonix 40 daily for 30 days with 5 refills to her pharmacy. Follow-up with her primary as scheduled before. Activity as Tolerated: Yes Discharge Diet: No Restrictions HTOMAS ESQUIVEL MD Mar 14, 2018 12:55
[2018-03-14 13:10] VITALS: BP_SYST 152; BP_SYST 163; BP_DIAS 73; BP_DIAS 74
[2018-03-14 13:40] VITALS: BP 169/77
[2018-03-14 13:55] VITALS: BP 169/77
== END 2018-03-14 14:00 | disposition home or self-care (01) ==
LOC: ENDO 10:48
PROVIDERS: ATTEND Surgery
DX: D50.9 Iron deficiency anemia, unspecified (principal); K57.30 Diverticulosis of large intestine without perforation or abscess without bleeding; R19.5 Other fecal abnormalities; K25.9 Gastric ulcer, unspecified as acute or chronic, without hemorrhage or perforation; Z86.010 Personal history of colon polyps; E78.00 Pure hypercholesterolemia, unspecified; I10 Essential (primary) hypertension; Z79.899 Other long term (current) drug therapy; Z79.82 Long term (current) use of aspirin; K21.9 Gastro-esophageal reflux disease without esophagitis; K59.09 Other constipation

== ENCOUNTER 2018-04-30 22:58 | Emergency (ER) | payer MEDICARE ==
[~2018-04-30] VITALS: Ht 157.5 cm; Wt 81.2 kg
[2018-04-30] MEDS ORDERED: LATA2.5D5 (23:49)
[2018-04-30] MEDS ORDERED: PANT40TA3 (23:49)
[2018-04-30] MEDS ORDERED: METO-387 (23:49)
[2018-05-01] MEDS ORDERED: ONDANSETRON 4 MG (ZOFRAN) ORAL DISSOLVE TAB SL STA (00:24)
[2018-05-01] MEDS ORDERED: ACETAMINOPHEN 500 MG TAB (TYLENOL) PO STA (00:24)
--- NOTE | 2018-05-01 00:37 | ED Cough/URI ---
General Chief Complaint: Cough/Cold/Flu Symptoms Stated Complaint: ACHY,HEADACHE,CONGESTED Nursing Triage Note: COUGH Sepsis Screen: No Definite Risk Source: patient Exam Limitations: no limitations History of Present Illness Date Seen by Provider: May 01, 2018 Time Seen by Provider: 00:10 Initial Comments Here with report of cough and congestion over the last 12-18 hours. Started with a tickle in her throat and then became more of a cough. Noted fever and chills as well as body aches. Does feel congested. Associated with nausea but no vomiting. States even water makes her nauseated. Denies other pain or concerns. Timing/Duration: yesterday, getting worse Severity/Quality: moderate, dry cough Prior Episodes/Possible Cause: occasional episodes Modifying Factors: Worse With Coughing; Improves With Rest Associated Symptoms: cough, fever/chills, nasal congestion, nasal drainage, sore throat Allergies and Home Medications Allergies Coded Allergies: No Known Drug Allergies (Unverified , 03/08/18) Home Medications Aspirin 81 Mg Tab.chew, 81 MG PO DAILY, (Reported) Benazepril HCl 40 Mg Tab, 40 MG PO DAILY, (Reported) Metoclopramide HCl 5 Mg Tablet, 5 MG PO AC, (Reported) Patient Home Medication List Home Medication List Reviewed: Yes Review of Systems Review of Systems Constitutional: see HPI, chills, fever EENTM: see HPI Respiratory: cough, short of breath Cardiovascular: No chest pain, No edema Gastrointestinal: No abdominal pain; nausea; No vomiting Genitourinary: no symptoms reported Musculoskeletal: muscle pain; No muscle stiffness Skin: no symptoms reported Past Kusszvq-Wrtnql-Zoctoa Hx Past Med/Social Hx: Reviewed Nursing Past Med/Soc Hx Patient Social History Alcohol Use: Denies Use Recreational Drug Use: No 2nd Hand Smoke Exposure: No Recent Foreign Travel: No Contact w/Someone Who Travel: No Recent Infectious Disease Expo: No Recent Hopitalizations: No Immunizations Up To Date Tetanus Booster (TDap): More than 5yrs PED Vaccines UTD: Yes Date of Pneumonia Vaccine: Aug 20, 2012 Date of Influenza Vaccine: Dec 27, 2017 Seasonal Allergies Seasonal Allergies: No Past Medical History Surgeries: Yes (thyroid,cataracts) Adenoidectomy, Appendectomy, Eye Surgery, Gallbladder, Hysterectomy, Thyroidectomy, Tonsillectomy Respiratory: No Cardiac: Yes (IRREGULAR HEART BEAT- irregular ekg) High Cholesterol, Hypertension Neurological: No : No 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 Sexually Transmitted Disease: No HIV/AIDS: No Genitourinary: No Gastrointestinal: Yes Gastroesophageal Reflux, Chronic Constipation Musculoskeletal: Yes Endocrine: Yes Parathyroid Disease HEENT: Yes Cataract Loss of Vision: Denies Hearing Impairment: Denies Cancer: No Psychosocial: No Integumentary: No Blood Disorders: No Adverse Reaction/Blood Tranf: No Family Medical History Reviewed Nursing Family Hx Physical Exam Vital Signs - First Documented 04/30/18 23:35 Temp 98.9 Pulse 99 Resp 18 B/P (MAP) 134/59 (84) Pulse Ox 97 O2 Delivery Room Air Capillary Refill : Less Than 3 Seconds Height: 5'2.00" Weight: 179lbs. 0.0oz. 81.928830co; 32.9 BMI Method:Stated General Appearance: WD/WN, no apparent distress HEENT: PERRL/EOMI, pharyngeal erythema, other (bilateral nasal congestion with clear rhinorrhea) Neck: full range of motion, supple Respiratory: no respiratory distress, no accessory muscle use, other (coarse cough) Cardiovascular: no murmur, tachycardia Gastrointestinal: non tender, soft Neurologic/Psychiatric: alert, oriented x 3 Skin: normal color, warm/dry Progress/Results/Core Measures Suspected Sepsis Recent Fever Within 48 Hours: No Infection Criteria Present: None New/Unexplained Altered Menta: No Sepsis Screen: No Definite Risk SIRS Temperature:98.9 Pulse: 99 Respiratory Rate: 18 Laboratory Tests 05/01/18 00:35: White Blood Count 7.8 Blood Pressure 134 /59 Mean: 84 Laboratory Tests 05/01/18 00:35: Creatinine 0.76, Platelet Count 377, Total Bilirubin 0.7 Results/Orders Lab Results Laboratory Tests Test 05/01/18 00:35 Range/Units White Blood Count 7.8 4.3-11.0 10^3/uL Red Blood Count 4.42 4.35-5.85 10^6/uL Hemoglobin 7.5 L 11.5-16.0 G/DL Hematocrit 26 L 35-52 % Mean Corpuscular Volume 58 L 80-99 FL Mean Corpuscular Hemoglobin 17 L 25-34 PG Mean Corpuscular Hemoglobin Concent 29 L 32-36 G/DL Red Cell Distribution Width 19.6 H 10.0-14.5 % Platelet Count 377 130-400 10^3/uL Mean Platelet Volume 9.5 7.4-10.4 FL Neutrophils (%) (Auto) 76 H 42-75 % Lymphocytes (%) (Auto) 7 L 12-44 % Monocytes (%) (Auto) 17 H 0-12 % Eosinophils (%) (Auto) 0 0-10 % Basophils (%) (Auto) 0 0-10 % Neutrophils # (Auto) 6.0 1.8-7.8 X 10^3 Lymphocytes # (Auto) 0.5 L 1.0-4.0 X 10^3 Monocytes # (Auto) 1.3 H 0.0-1.0 X 10^3 Eosinophils # (Auto) 0.0 0.0-0.3 10^3/uL Basophils # (Auto) 0.0 0.0-0.1 10^3/uL Sodium Level 132 L 135-145 MMOL/L Potassium Level 4.0 3.6-5.0 MMOL/L Chloride Level 101 98-107 MMOL/L Carbon Dioxide Level 20 L 21-32 MMOL/L Anion Gap 11 5-14 MMOL/L Blood Urea Nitrogen 16 7-18 MG/DL Creatinine 0.76 0.60-1.30 MG/DL Estimat Glomerular Filtration Rate > 60 BUN/Creatinine Ratio 21 Glucose Level 127 H 70-105 MG/DL Calcium Level 8.4 L 8.5-10.1 MG/DL Corrected Calcium 8.8 8.5-10.1 MG/DL Total Bilirubin 0.7 0.1-1.0 MG/DL Aspartate Amino Transf (AST/SGOT) 17 5-34 U/L Alanine Aminotransferase (ALT/SGPT) 8 0-55 U/L Alkaline Phosphatase 65 40-136 U/L Total Protein 7.0 6.4-8.2 GM/DL Albumin 3.5 3.2-4.5 GM/DL Micro Results Microbiology 04/30/18 Influenza Types A,B Antigen (KAY) - Final, Complete My Orders Orders - SHASTA SINGH MD Influenza A And B Antigens (04/30/18 23:46) Cbc With Automated Diff (05/01/18 00:24) Comprehensive Metabolic Panel (05/01/18 00:24) Chest 1 View, Ap/Pa Only (05/01/18 00:24) Ondansetron Oral Dissolve Tab (Zofran (05/01/18 00:24) Acetaminophen Tablet (Tylenol Tablet) (05/01/18 00:24) Vital Signs/I&O 04/30/18 23:35 Temp 98.9 Pulse 99 Resp 18 B/P (MAP) 134/59 (84) Pulse Ox 97 O2 Delivery Room Air Capillary Refill : Less Than 3 Seconds Blood Pressure Mean: 84 Progress Note : Progress Note Seen and evaluated. Influenza screen ordered. This was positive for influenza a. Patient does not have recent labs. Due to renal dosed requirement for Tamiflu, we will check basic labs. Given patient's age we will also get chest x -ray. Tylenol 1 g by mouth and Zofran 4 mg sublingual ordered. Monitor patient. 0140: Labs reviewed. Tamiflu 75 mg by mouth ordered. Discharge home with return precautions. Patient verbalize understanding instructions and agreement with plan. Diagnostic Imaging Diagonstic Imaging: Xray Plain Films/CT/US/NM/MRI: chest Comments Right basilar atelectasis Reviewed: Reviewed by Me Departure Impression Primary Impression: Influenza A Disposition: 01 HOME, SELF-CARE Condition: Improved Departure-Patient Inst. Decision time for Depature: 01:45 Referrals: JENAE RAMESH DO (PCP/Family) Primary Care Physician Patient Instructions: Flu, Adult (DC) Add. Discharge Instructions: All discharge instructions reviewed with patient and/or family. Voiced understanding. You may take Tylenol/acetaminophen 1000 mg every 8 hours as needed for fever or pain. You may take ibuprofen 400 mg every 6 hours as needed for fever or pain. Drink plenty of fluids. Follow-up with your DrDarci in a few days for recheck. Take other medications as directed. Return for worse pain, fever, vomiting, weakness, breathing problems or other concerns as needed. Scripts Oseltamivir Phosphate (Oseltamivir Phosphate) 75 Mg Capsule 75 MG PO BID, #9 CAP 0 Refills Prov: SHASTA SINGH MD 05/01/18 Ondansetron (Ondansetron Odt) 4 Mg Tab.rapdis 4 MG PO Q6H PRN for NAUSEA/VOMITING, #8 TAB 0 Refills Prov: SHASTA SINGH MD 05/01/18 SHASTA SINGH MD May 01, 2018 00:37
[2018-05-01 00:42] LABS: BASOPHILS % (AUTO) 0 % (0-10); EOSINOPHILS % (AUTO) 0 % (0-10); HEMATOCRIT 26 % (35-52); HEMOGLOBIN 7.5 G/DL (11.5-16.0); LYMPHOCYTES # (AUTO) 0.5 X 10^3 (1.0-4.0); LYMPHOCYTES % (AUTO) 7 % (12-44); MEAN CORPUSCULAR HEMOGLOBIN 17 PG (25-34); MEAN CORPUSCULAR HGB CONC 29 G/DL (32-36); MEAN CORPUSCULAR VOLUME 58 FL (80-99); MEAN PLATELET VOLUME 9.5 FL (7.4-10.4); MONOCYTES # (AUTO) 1.3 X 10^3 (0.0-1.0); MONOCYTES % (AUTO) 17 % (0-12); NEUTROPHILS % (AUTO) 76 % (42-75); PLATELET COUNT 377 10^3/uL (130-400); RED CELL DISTRIBUTION WIDTH 19.6 % (10.0-14.5); WHITE BLOOD COUNT 7.8 10^3/uL (4.3-11.0)
[2018-05-01 01:01] LABS: ALANINE AMINOTRANSFERASE 8 U/L (0-55); ALBUMIN 3.5 GM/DL (3.2-4.5); ALKALINE PHOSPHATASE 65 U/L (40-136); BILIRUBIN,TOTAL 0.7 MG/DL (0.1-1.0); BUN/CREATININE RATIO 21; CALCIUM 8.4 MG/DL (8.5-10.1); CARBON DIOXIDE 20 MMOL/L (21-32); CHLORIDE 101 MMOL/L (98-107); CREATININE SERUM 0.76 MG/DL (0.60-1.30); GFR ESTIMATED > 60; GLUCOSE 127 MG/DL (70-105); SODIUM 132 MMOL/L (135-145)
[2018-05-01] MEDS ORDERED: OSELTAMIVIR 75 MG (TAMIFLU) CAPSULE PO ONE (01:45)
[2018-05-01] MEDS ORDERED: ONDA4TAB11 PO (01:47)
[2018-05-01] MEDS ORDERED: OSEL75CA15 PO (01:47)
[2018-05-01 02:04] VITALS: BP 146/68
--- NOTE | 2018-05-01 08:19 | Diagnostic Imaging Report ---
Indication: Atelectasis. Time of exam: 12:39 AM Comparison is made with prior chest from 09/12/2016. The heart is enlarged but stable. There is minimal infiltrate or atelectasis in the right base. Otherwise lungs are clear. Mild central congestion. No effusion or pneumothorax is seen. Impression: Cardiomegaly and central congestion with minimal right basilar infiltrate or atelectasis. Dictated by: Dictated on workstation # [id number]
== END 2018-05-01 02:04 | disposition home or self-care (01) ==
LOC: EDUNIT# 22:58 → ER 22:59
DX: J10.1 Influenza due to other identified influenza virus with other respiratory manifestations (principal); E78.00 Pure hypercholesterolemia, unspecified; I10 Essential (primary) hypertension; K21.9 Gastro-esophageal reflux disease without esophagitis; Z87.19 Personal history of other diseases of the digestive system; Z79.82 Long term (current) use of aspirin; Z90.710 Acquired absence of both cervix and uterus; Z90.89 Acquired absence of other organs; Z90.49 Acquired absence of other specified parts of digestive tract
CPT/HCPCS: 36415; 71045; 80053; 85025; 87804

== ENCOUNTER 2018-05-04 17:36 | Inpatient (IN) | payer MEDICARE ==
[~2018-05-04] VITALS: Ht 157.5 cm; Wt 85.3 kg
[~2018-05-04 17:36] MED LIST changes: +LATA2.5D5 OU; +METO-387 PO; +ONDA4TAB11 PO; +OSEL75CA15 PO; +PANT40TA3 PO
[2018-05-04] MEDS ORDERED: ANTACID SUSP 30 ML UDC (MYLANTA) PO PRN (17:45)
[2018-05-04] MEDS ORDERED: MILK OF MAGNESIA 400 MG/5 ML 30 ML UDC PO PRN (17:45)
[2018-05-04] MEDS ORDERED: ACETAMINOPHEN 500 MG TAB (TYLENOL) PO PRN (17:45)
[2018-05-04] MEDS ORDERED: BENZONATATE 100 MG (TESSALON) CAPSULE PO PRN (17:45)
--- NOTE | 2018-05-04 18:16 | NUR ---
CHRISTOS BAGLEY admitted to room 413-1, with an admitting diagnosis of influenza A, on 05/04/[address] Alicea office ambulating with walker, accompanied by daughter .CHRISTOS BAGLEY introduced to surroundings, call light, bed controls, phone, TV, temperature control, lights, meal times, smoking policy, visitor policy, side rail policy, bathrooms and showers. Patient Rights given to patient in the handbook. CHRISTOS BAGLEY verbalizes understanding that [facility] is not responsible for the loss or damage to any personal effects or valuables that are kept in the patients posession during their hospitalization. The following Patient Care Plans and discharge plans were discussed with the patient and family. CHRISTOS BAGLEY verbalizes understanding of Interdisciplinary Patient Education.
[2018-05-04] MEDS ORDERED: ACETAMINOPHEN 325 MG TABLET PO PRN (18:30)
[2018-05-04] MEDS ORDERED: CATHETER FLUSH 10 ML SYR IV PRN (18:30)
--- OUTSIDE RECORDS SUMMARY | 2018-05-04 18:30 | XMS REPORT | Clinical Summary ---
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 If you do not see the information that you expected, contact Release of Information in the Health Information Management department at [phone] for further assistance in locating additional records.[facility] Allergies Comments Active Allergy Reactions Severity Noted Date Penicillins UNKNOWN Low 06/17/2015 Medications End Date Status Medication Sig Dispensed Refills Start Date Active CALCIUM CARBONATE/VITAMIN Take by 0 D3 (VITAMIN D-3 PO) mouth. Active amLODIPine (NORVASC) 5 mg Take 5 mg by 0 tablet mouth daily. Active benazepril (LOTENSIN) 20 Take 20 mg by 0 mg tablet mouth daily. Active nebivolol (BYSTOLIC) 10 Take 10 mg by 0 mg tablet mouth daily. Active metoclopramide HCl Take 5 mg by 0 (REGLAN) 5 mg tablet mouth four times daily. Active atorvastatin (LIPITOR) 10 Take 10 mg by 0 mg tablet mouth daily. Active aspirin EC 81 mg tablet Take 81 mg by 0 mouth daily. Active CYANOCOBALAMIN (VITAMIN Take by 0 B-12) (VITAMIN B-12 PO) mouth. Active DOCOSAHEXANOIC ACID/EPA Take by 0 (FISH OIL PO) mouth. Active Problems Problem Noted Date Left thyroid nodule 06/17/2015 Neck mass 06/17/2015 Family History Medical History Relation Name Comments Heart Attack Father Stroke Mother Cancer Paternal breast Grandmother Relation Name Status Comments Father Mother Paternal Grandmother Social History Date Tobacco Use Types Packs/Day Years Used Never Smoker Smokeless Tobacco: Never Used Alcohol Use Drinks/Week oz/Week Comments No Sex Assigned at Date Recorded Not on file Industry Job Start Date Occupation Not on file Not on file Not on file Travel End Travel History Travel Start No recent travel history available. 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 Body Mass Index 35.03 Plan of Treatment Health Maintenance Due Date Last Done Comments PHYSICAL (COMPREHENSIVE) 12/18/1942 EXAM DTAP/TDAP VACCINES (1 - 12/18/1953 Tdap) SHINGLES RECOMBINANT 12/18/1985 VACCINE (1 of 2) OSTEOPOROSIS 12/18/2000 SCREENING/MONITORING PNEUMONIA (PCV13/PPSV23) 12/18/2000 VACCINES (1 of 2 - PCV13) INFLUENZA VACCINE 10/20/2017 Results Not on filefrom Last 3 Months Insurance Payer Benefit Subscriber ID Type Phone Address Plan / Group MEDICARE MEDICARE xxxxxxxxxx Medicare PART A AND B BCBS [employer] BCBS xxxxxxxxxxxx Medicare SUPPLEMENT Advance Directives Patient has advance care planning documents on file. For more information, please contact: [facility] [address] [place] [address]
--- OUTSIDE RECORDS SUMMARY | 2018-05-04 18:31 | XMS REPORT | Continuity of Care Document ---
Author Author [facility] Organization [facility] Address Unknown Phone Unavailable Allergies Active Description Code Type Severity Reaction Onset Reported/Identified Relationship to Patient Clinical Status Yes No Known Drug Allergies [id number] Drug Allergy Unknown N/A 03/08/2018 Medications There is no data. Problems Date Dx Coded Attending Type Code Diagnosis Diagnosed By 01/03/2010 Ot 272.4 01/03/2010 Ot 300.00 01/03/2010 Ot 401.9 01/03/2010 Ot 786.59 02/01/2012 Ot 562.10 DIVERTICULOSIS COLON (W/O MENT OF HEMORR 02/01/2012 Ot V58.66 LONG-TERM ( CURRENT) USE OF ASPIRIN 02/01/2012 Ot V58.69 OTH MED,LT, CURRENT USE 02/01/2012 Ot V76.51 SCREEN MAL NEOP-COLON [...] DUDLEY MD Ot 787.02 NAUSEA ALONE 12/06/2012 OCTAVIA MD, BASHAR J Ot 794.31 ABNORM ELECTROCARDIOGRAM 03/12/2014 OCTAVIA AYERS, MARIA ELENA Fitzgerald Ot 272.4 03/12/2014 OCTAVIA AYERS, MARIA ELENA Fitzgerald Ot 396.3 03/12/2014 OCTAVIA AYERS, MARIA ELENA Fitzgerald Ot 397.0 03/12/2014 OCTAVIA AYERS, MARIA ELENA Fitzgerald Ot 401.9 03/12/2014 OCTAVIA AYERS, MARIA ELENA Fitzgerald Ot 782.3 02/28/2015 Ot V72.84 02/28/2015 Ot 401.9 02/28/2015 Ot 416.8 02/28/2015 Ot 424.1 02/28/2015 Ot 428.30 02/28/2015 MARY AYERS, SAMINASEVALENTIN Ot 786.50 02/28/2015 SERGIO HERNANDEZ MD Ot 794.31 02/28/2015 SERGIO HERNANDEZ MD Ot 275.2 02/28/2015 SERGIO HERNANDEZ MD Ot 276.1 02/28/2015 SERGIO HERNANDEZ MD Ot 396.3 02/28/2015 SERGIO HERNANDEZ MD Ot 397.0 02/28/2015 MARY AYERS, ANNABELLEYASEELAN Ot 429.3 02/28/2015 MARY AYERS, ANNABELLEYASEELAN Ot 786.50 02/28/2015 SAMINA HERNANDEZ MDSEVALENTIN Ot 790.5 02/28/2015 SAMINA HERNANDEZ MDSEVALENTIN Ot 794.31 02/28/2015 SAMINA HERNANDEZ MDSEELAN Ot 275.2 02/28/2015 MARY AYERS, ANNABELLEYASEELAN Ot 276.1 02/28/2015 ANNABELLE HERNANDEZ MDYASEELAN Ot 786.50 02/28/2015 MARY AYERS, ANNABELLEYASEELAN Ot 790.5 02/28/2015 ANNABELLE HERNANDEZ MDYASEELAN Ot 794.31 02/28/2015 MARIA ELENA DUDLEY MD [...] DUDLEY MD Ot I65.23 04/29/2015 GADIEL JENAE Fitzgerald Ot M81.0 05/02/2015 GADIEL DIEGO JENAE Fitzgerald Ot M81.0 03/30/2016 Ot V72.84 EXAM PRE- OPERATIVE NOS 03/30/2016 Ot 401.9 HYPERTENSION NOS 03/30/2016 [...] 03/30/2016 SERGIO HERNANDEZ MD Ot 396.3 MITRAL/AORTIC LAEH INSUFF 03/30/2016 SERGIO HERNANDEZ MD Ot 397.0 [...] 790.5 ABN SERUM ENZY LEVEL NEC 03/30/2016 MARY AYERS, SERGIO Ot 794.31 ABNORM ELECTROCARDIOGRAM 03/30/2016 MARIA ELENA [...] I65.23 OCCLUSION AND STENOSIS OF BILATERAL [place] 09/13/2016 SE JUSTICE MD, Ot E78.00 PURE HYPERCHOLESTEROLEMIA, UNSPECIFIED 09/13/2016 SE JUSTICE MD, Ot I10 ESSENTIAL (PRIMARY) HYPERTENSION 09/13/2016 SE JUSTICE MD, Ot I51.7 CARDIOMEGALY 09/13/2016 SE JUSTICE MD Ot I95.2 HYPOTENSION DUE TO DRUGS 09/13/2016 SE JUSTICE MD, Ot R42 DIZZINESS AND GIDDINESS 09/13/2016 SE JUSTICE MD Ot S00.83XA CONTUSION OF OTHER PART OF HEAD, INITIAL 09/13/2016 SE JUSTICE MD Ot S52.501B UNSP FX THE LOWER END OF R RADIUS, INIT 09/13/2016 SE JUSTICE MD, Ot S52.601B UNSP FX LOWER END OF RIGHT ULNA, INIT FO 09/13/2016 SE JUSTICE MD Ot W01.0XXA FALL SAME LEV FROM SLIP/TRIP W/O STRIKE 09/13/2016 SE JUSTICE MD Ot Y92.[address] IN UNSP NON-INSTITUT (PRIVATE 09/13/2016 SE JUSTICE MD, Ot Y99.8 OTHER EXTERNAL CAUSE STATUS 09/13/2016 SE JUSTICE MD Ot Z23 ENCOUNTER FOR IMMUNIZATION 09/13/2016 SE JUSTICE MD, Ot Z79.82 TITLE CURATOR (CURRENT) USE OF ASPIRIN 09/13/2016 SE JUSTICE MD, Ot Z79.899 OTHER TITLE CURATOR (CURRENT) DRUG THERAPY 09/17/2016 IPSEN MD, SE J Ot E78.00 PURE HYPERCHOLESTEROLEMIA, UNSPECIFIED 09/17/2016 ES JUSTICE MD, Ot I10 ESSENTIAL (PRIMARY) HYPERTENSION 09/17/2016 SE JUSTICE MD, Ot I51.7 CARDIOMEGALY 09/17/2016 SE JUSTICE MD Ot I95.2 HYPOTENSION DUE TO DRUGS 09/17/2016 SE JUSTICE MD, Ot R42 DIZZINESS AND GIDDINESS 09/17/2016 SE JUSTICE MD, Ot S00.83XA CONTUSION OF OTHER PART OF HEAD, INITIAL 09/17/2016 SE JUSTICE MD, Ot S52.501B UNSP FX THE LOWER END OF R RADIUS, INIT 09/17/2016 SE JUSTICE MD, Ot S52.601B UNSP FX LOWER END OF RIGHT ULNA, INIT FO 09/17/2016 SE JUSTICE MD, Ot W01.0XXA FALL SAME LEV FROM SLIP/TRIP W/O STRIKE 09/17/2016 SE JUSTICE MD, Ot Y92.[address] IN UNSP NON-INSTITUT (PRIVATE 09/17/2016 SE JUSTICE MD, Ot Y99.8 OTHER EXTERNAL CAUSE STATUS 09/17/2016 SE JUSTICE MD, Ot Z23 ENCOUNTER FOR IMMUNIZATION 09/17/2016 SE JUSTICE MD, Ot Z79.82 RESIDENTIAL (CURRENT) USE OF ASPIRIN 09/17/2016 SE JUSTICE MD, Ot Z79.899 OTHER RESIDENTIAL (CURRENT) DRUG THERAPY 09/17/2016 SE JUSTICE MD, Ot E78.00 PURE HYPERCHOLESTEROLEMIA, UNSPECIFIED 09/17/2016 SE JUSTICE MD, Ot I10 ESSENTIAL (PRIMARY) HYPERTENSION 09/17/2016 SE JUSTICE MD, Ot I51.7 CARDIOMEGALY 09/17/2016 SE JUSTICE MD, Ot I95.2 HYPOTENSION DUE TO DRUGS 09/17/2016 SE JUSTICE MD, Ot R42 DIZZINESS AND GIDDINESS 09/17/2016 SE JUSTICE MD, Ot S00.83XA CONTUSION OF OTHER PART OF HEAD, INITIAL 09/17/2016 SE JUSTICE MD, Ot S52.501B UNSP FX THE LOWER END OF R RADIUS, INIT 09/17/2016 IPSEN MD, SE J Ot S52.601B UNSP FX LOWER END OF RIGHT ULNA, INIT FO 09/17/2016 SE JUSTICE MD, Ot W01.0XXA FALL SAME LEV FROM SLIP/TRIP W/O STRIKE 09/17/2016 SE JUSTICE MD Ot Y92.[address] IN [facility] NON-INSTITUT (PRIVATE 09/17/2016 SE JUSTICE MD, Ot Y99.8 OTHER EXTERNAL CAUSE STATUS 09/17/2016 SE JUSTICE MD, Ot Z23 ENCOUNTER FOR IMMUNIZATION 09/17/2016 SE JUSTICE MD Ot Z79.82 TITLE CURATOR (CURRENT) USE OF ASPIRIN 09/17/2016 SE JUSTICE MD, Ot Z79.899 OTHER TITLE CURATOR (CURRENT) DRUG THERAPY 09/18/2016 SE JUSTICE MD Ot E78.00 PURE HYPERCHOLESTEROLEMIA, UNSPECIFIED 09/18/2016 SE JUSTICE MD Ot I10 ESSENTIAL (PRIMARY) HYPERTENSION 09/18/2016 SE JUSTICE MD Ot I51.7 CARDIOMEGALY 09/18/2016 SE JUSTICE MD Ot I95.2 HYPOTENSION DUE TO DRUGS 09/18/2016 SE JUSTICE MD Ot R42 DIZZINESS AND GIDDINESS 09/18/2016 SE JUSTICE MD Ot S00.83XA CONTUSION OF OTHER PART OF HEAD, INITIAL 09/18/2016 SE JUSTICE MD Ot S52.501B UNSP FX THE LOWER END OF R RADIUS, INIT 09/18/2016 SE JUSTICE MD, Ot S52.601B UNSP FX LOWER END OF RIGHT ULNA, INIT FO 09/18/2016 SE JUSTICE MD, Ot W01.0XXA FALL SAME LEV FROM SLIP/TRIP W/O STRIKE 09/18/2016 SE JUSTICE MD Ot Y92.[address] IN [facility] NON-INSTITUT (PRIVATE 09/18/2016 SE JUSTICE MD, Ot Y99.8 OTHER EXTERNAL CAUSE STATUS 09/18/2016 SE JUSTICE MD Ot Z23 ENCOUNTER FOR IMMUNIZATION 09/18/2016 SE JUSTICE MD Ot Z79.82 RESIDENTIAL (CURRENT) USE OF ASPIRIN 09/18/2016 SE JUSTICE MD Ot Z79.899 OTHER RESIDENTIAL (CURRENT) DRUG THERAPY 07/01/2017 Ot V72.84 EXAM PRE- OPERATIVE NOS 07/01/2017 Ot 401.9 HYPERTENSION NOS 07/01/2017 Ot 416.8 CHR PULMON HEART DIS NEC 07/01/2017 Ot 424.1 AORTIC VALVE DISORDER 07/01/2017 Ot 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 07/01/2017 SERGIO HERNANDEZ MD Ot 786.50 CHEST PAIN NOS 07/01/2017 SERGIO HERNANDEZ MD Ot 794.31 ABNORM ELECTROCARDIOGRAM 07/01/2017 SERGIO HERNANDEZ MD Ot 275.2 DIS MAGNESIUM METABOLISM 07/01/2017 SERGIO HERNANDEZ MD Ot 276.1 HYPOSMOLALITY 07/01/2017 SERGIO HERNANDEZ MD Ot 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 07/01/2017 SERGIO HERNANDEZ MD Ot 397.0 TRICUSPID VALVE DISEASE 07/01/2017 SERGIO HERNANDEZ MD Ot 429.3 CARDIOMEGALY 07/01/2017 SERGIO HERNANDEZ MD Ot 786.50 CHEST PAIN NOS 07/01/2017 SERGIO HERNANDEZ MD Ot 790.5 ABN SERUM ENZY LEVEL NEC 07/01/2017 SERGIO HERNANDEZ MD Ot 794.31 ABNORM ELECTROCARDIOGRAM 07/01/2017 SERGIO HERNANDEZ MD Ot 275.2 DIS MAGNESIUM METABOLISM 07/01/2017 SERGIO HERNANDEZ MD Ot 276.1 HYPOSMOLALITY 07/01/2017 SERGIO HERNANDEZ MD Ot 786.50 CHEST PAIN NOS 07/01/2017 SERGIO HERNANDEZ MD Ot 790.5 ABN SERUM ENZY LEVEL NEC 07/01/2017 SERGIO HERNANDEZ MD Ot 794.31 ABNORM ELECTROCARDIOGRAM 07/01/2017 MARIA ELENA DUDLEY MD Ot 272.4 HYPERLIPIDEMIA NEC/NOS 07/01/2017 MARIA ELENA DUDLEY MD Ot 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 07/01/2017 MARIA ELENA DUDLEY MD Ot 397.0 TRICUSPID VALVE DISEASE 07/01/2017 MARIA ELENA DUDLEY MD Ot 401.9 HYPERTENSION NOS 07/01/2017 MARIA ELENA DUDLEY MD Ot 782.3 EDEMA 07/01/2017 MARIA ELENA DUDLEY MD Ot E78.2 MIXED HYPERLIPIDEMIA 07/01/2017 MARIA ELENA DUDLEY MD Ot I10 ESSENTIAL (PRIMARY) HYPERTENSION 07/01/2017 MARIA ELENA DUDLEY MD Ot I35.1 NONRHEUMATIC AORTIC (VALVE) INSUFFICIENC 07/01/2017 MARIA ELENA DUDLEY MD Ot I65.23 OCCLUSION AND STENOSIS OF BILATERAL [place] 07/01/2017 RAMESHJENAE PARISH DO Ot M81.0 AGE-RELATED OSTEOPOROSIS W/O CURRENT PAT 07/01/2017 PURVI LO Ot E78.2 MIXED HYPERLIPIDEMIA 07/01/2017 PURVI LO Ot I10 ESSENTIAL (PRIMARY) HYPERTENSION 07/01/2017 PURVI LO Ot I35.1 NONRHEUMATIC AORTIC (VALVE) INSUFFICIENC 07/01/2017 PURVI LO Ot I65.23 OCCLUSION AND STENOSIS OF BILATERAL [place] 07/01/2017 MARIA ELENA DUDLEY MD Ot R07.9 CHEST PAIN, UNSPECIFIED 07/01/2017 MARIA ELENA DUDLEY MD Ot R07.9 CHEST PAIN, UNSPECIFIED 07/01/2017 MARIA ELENA DUDLEY MD Ot R07.9 CHEST PAIN, UNSPECIFIED 07/02/2017 Ot V72.84 EXAM PRE- OPERATIVE NOS 07/02/2017 Ot 401.9 HYPERTENSION NOS 07/02/2017 Ot 416.8 CHR PULMON HEART DIS NEC 07/02/2017 Ot 424.1 AORTIC VALVE DISORDER 07/02/2017 Ot 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 07/02/2017 SERGIO HERNANDEZ MD Ot 786.50 CHEST PAIN NOS 07/02/2017 SERGIO HERNANDEZ MD Ot 794.31 ABNORM ELECTROCARDIOGRAM 07/02/2017 SERGIO HERNANDEZ MD Ot 275.2 DIS MAGNESIUM METABOLISM 07/02/2017 SERGIO HERNANDEZ MD Ot 276.1 HYPOSMOLALITY 07/02/2017 SERGIO HERNANDEZ MD Ot 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 07/02/2017 SERGIO HERNANDEZ MD Ot 397.0 TRICUSPID VALVE DISEASE 07/02/2017 SERGIO HERNANDEZ MD Ot 429.3 CARDIOMEGALY 07/02/2017 SERGIO HERNANDEZ MD Ot 786.50 CHEST PAIN NOS 07/02/2017 SERGIO HERNANDEZ MD Ot 790.5 ABN SERUM ENZY LEVEL NEC 07/02/2017 SERGIO HERNANDEZ MD Ot 794.31 ABNORM ELECTROCARDIOGRAM 07/02/2017 SERGIO HERNANDEZ MD Ot 275.2 DIS MAGNESIUM METABOLISM 07/02/2017 SERGIO HERNANDEZ MD Ot 276.1 HYPOSMOLALITY 07/02/2017 SERGIO HERNANDEZ MD Ot 786.50 CHEST PAIN NOS 07/02/2017 SERGIO HERNANDEZ MD Ot 790.5 ABN SERUM ENZY LEVEL NEC 07/02/2017 SERGIO HERNANDEZ MD Ot 794.31 ABNORM ELECTROCARDIOGRAM 07/02/2017 MARIA ELENA DUDLEY MD Ot 272.4 HYPERLIPIDEMIA NEC/NOS 07/02/2017 MARIA ELENA DUDLEY MD Ot 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 07/02/2017 MARIA ELENA DUDLEY MD Ot 397.0 TRICUSPID VALVE DISEASE 07/02/2017 MARIA ELENA DUDLEY MD Ot 401.9 HYPERTENSION NOS 07/02/2017 MARIA ELENA DUDLEY MD Ot 782.3 EDEMA 07/02/2017 MARIA ELENA DUDLEY MD Ot E78.2 MIXED HYPERLIPIDEMIA 07/02/2017 MARIA ELENA DUDLEY MD Ot I10 ESSENTIAL (PRIMARY) HYPERTENSION 07/02/2017 MARIA ELENA DUDLEY MD Ot I35.1 NONRHEUMATIC AORTIC (VALVE) INSUFFICIENC 07/02/2017 MARIA ELENA DUDLEY MD Ot I65.23 OCCLUSION AND STENOSIS OF BILATERAL [place] 07/02/2017 JENAE RAMESH DO Ot M81.0 AGE-RELATED OSTEOPOROSIS W/O CURRENT PAT 07/02/2017 PURVI LO Ot E78.2 MIXED HYPERLIPIDEMIA 07/02/2017 PURVI LO Ot I10 ESSENTIAL (PRIMARY) HYPERTENSION 07/02/2017 PURVI LO Ot I35.1 NONRHEUMATIC AORTIC (VALVE) INSUFFICIENC 07/02/2017 PURVI LO Ot I65.23 OCCLUSION AND STENOSIS OF BILATERAL [place] 07/02/2017 MARIA ELENA DUDLEY MD Ot R07.9 CHEST PAIN, UNSPECIFIED 07/06/2017 MARIA ELENA DUDLEY MD Ot E78.5 HYPERLIPIDEMIA, UNSPECIFIED 07/06/2017 MARIA ELENA DUDLEY MD 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 07/06/2017 MARIA ELENA DUDLEY MD Ot I10 ESSENTIAL (PRIMARY) HYPERTENSION 07/06/2017 MARIA ELENA DUDLEY MD Ot I65.29 OCCLUSION AND STENOSIS OF UNSPECIFIED CA 07/06/2017 MARIA ELENA DUDLEY MD Ot R07.9 CHEST PAIN, UNSPECIFIED 07/08/2017 MARIA ELENA DUDLEY MD Ot E78.5 HYPERLIPIDEMIA, UNSPECIFIED 07/08/2017 MARIA ELENA DUDLEY MD 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 07/08/2017 MARIA ELENA DUDLEY MD Ot I10 ESSENTIAL (PRIMARY) HYPERTENSION 07/08/2017 MARIA ELENA DUDLEY MD Ot I65.29 OCCLUSION AND STENOSIS OF UNSPECIFIED CA 07/08/2017 MARIA ELENA DUDLEY MD Ot R07.9 CHEST PAIN, UNSPECIFIED 07/12/2017 URSZULA TAI MD Ot D50.9 IRON DEFICIENCY ANEMIA, UNSPECIFIED 07/12/2017 URSZULA TAI MD, Ot E78.00 PURE HYPERCHOLESTEROLEMIA, UNSPECIFIED 07/12/2017 URSZULA TAI MD, Ot E86.1 HYPOVOLEMIA 07/12/2017 URSZULA TAI MD, Ot I10 ESSENTIAL (PRIMARY) HYPERTENSION 07/12/2017 URSZULA TAI MD, Ot K21.9 GASTRO-ESOPHAGEAL REFLUX DISEASE WITHOUT 07/12/2017 URSZULA TAI MD, Ot R42 DIZZINESS AND GIDDINESS 07/12/2017 URSZULA TAI MD, Ot Z79.82 TITLE CURATOR (CURRENT) USE OF ASPIRIN 07/12/2017 URSZULA TAI MD, Ot Z87.81 PERSONAL HISTORY OF (HEALED) TRAUMATIC F 07/12/2017 URSZULA TAI MD, Ot Z90.49 ACQUIRED ABSENCE OF OTHER SPECIFIED PART 07/12/2017 URSZULA TAI MD, Ot Z90.710 ACQUIRED ABSENCE OF BOTH CERVIX AND UTER 07/12/2017 URSZULA TAI MD, Ot Z90.89 ACQUIRED ABSENCE OF OTHER ORGANS 07/23/2017 OCTAVIA MD, BASHAR J Ot E78.5 HYPERLIPIDEMIA, UNSPECIFIED 07/23/2017 MARIA ELENA DUDLEY MD 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 07/23/2017 MARIA ELENA DUDLEY MD Ot I10 ESSENTIAL (PRIMARY) HYPERTENSION 07/23/2017 MARIA ELENA DUDLEY MD Ot I65.29 OCCLUSION AND STENOSIS OF UNSPECIFIED CA 07/23/2017 MARIA ELENA DUDLEY MD Ot R07.9 CHEST PAIN, UNSPECIFIED 07/28/2017 MARIA ELENA DUDLEY MD Ot E78.5 HYPERLIPIDEMIA, UNSPECIFIED 07/28/2017 MARIA ELENA DUDLEY MD 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 07/28/2017 MARIA ELENA DUDLEY MD Ot I10 ESSENTIAL (PRIMARY) HYPERTENSION 07/28/2017 MARIA ELENA DUDLEY MD Ot I65.29 OCCLUSION AND STENOSIS OF UNSPECIFIED CA 07/28/2017 MARIA ELENA DUDLEY MD Ot R07.9 CHEST PAIN, UNSPECIFIED 03/08/2018 THOMAS ESQUIVEL MD Ot Z01.818 ENCOUNTER FOR OTHER PREPROCEDURAL EXAMIN 03/09/2018 THOMAS ESQUIVEL MD Ot Z01.818 ENCOUNTER FOR OTHER PREPROCEDURAL EXAMIN 03/14/2018 SERGIO HERNANDEZ MD Ot 786.50 CHEST PAIN NOS 03/14/2018 SERGIO HERNANDEZ MD Ot 794.31 ABNORM ELECTROCARDIOGRAM 03/14/2018 SERGIO HERNANDEZ MD Ot 275.2 DIS MAGNESIUM METABOLISM 03/14/2018 SERGIO HERNANDEZ MD Ot 276.1 HYPOSMOLALITY 03/14/2018 SERGIO HERNANDEZ MD Ot 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 03/14/2018 SERGIO HERNANDEZ MD Ot 397.0 TRICUSPID VALVE DISEASE 03/14/2018 SERGIO HERNANDEZ MD Ot 429.3 CARDIOMEGALY 03/14/2018 SERGIO HERNANDEZ MD Ot 786.50 CHEST PAIN NOS 03/14/2018 SERGIO HERNANDEZ MD Ot 790.5 ABN SERUM ENZY LEVEL NEC 03/14/2018 SERGIO HERNANDEZ MD Ot 794.31 ABNORM ELECTROCARDIOGRAM 03/14/2018 SERGIO HERNANDEZ MD Ot 275.2 DIS MAGNESIUM METABOLISM 03/14/2018 SERGIO HERNANDEZ MD Ot 276.1 HYPOSMOLALITY 03/14/2018 SERGIO HERNANDEZ MD Ot 786.50 CHEST PAIN NOS 03/14/2018 SERGIO HERNANDEZ MD Ot 790.5 ABN SERUM ENZY LEVEL NEC 03/14/2018 SERGIO HERNANDEZ MD Ot 794.31 ABNORM ELECTROCARDIOGRAM 03/14/2018 MARIA ELENA DUDLEY MD Ot 272.4 HYPERLIPIDEMIA NEC/NOS 03/14/2018 MARIA ELENA DUDLEY MD Ot 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 03/14/2018 MARIA ELENA DUDLEY MD Ot 397.0 TRICUSPID VALVE DISEASE 03/14/2018 MARIA ELENA DUDLEY MD Ot 401.9 HYPERTENSION NOS 03/14/2018 MARIA ELENA DUDLEY MD Ot 782.3 EDEMA 03/14/2018 MARIA ELENA DUDLEY MD Ot E78.2 MIXED HYPERLIPIDEMIA 03/14/2018 MARIA ELENA DUDLEY MD Ot I10 ESSENTIAL (PRIMARY) HYPERTENSION 03/14/2018 MARIA ELENA DUDLEY MD Ot I35.1 NONRHEUMATIC AORTIC (VALVE) INSUFFICIENC 03/14/2018 MARIA ELENA DUDLEY MD Ot I65.23 OCCLUSION AND STENOSIS OF BILATERAL [place] 03/14/2018 JENAE RAMESH DO Ot M81.0 AGE-RELATED OSTEOPOROSIS W/O CURRENT PAT 03/14/2018 PURVI LO Ot E78.2 MIXED HYPERLIPIDEMIA 03/14/2018 PURVI LO Ot I10 ESSENTIAL (PRIMARY) HYPERTENSION 03/14/2018 PURVI LO Ot I35.1 NONRHEUMATIC AORTIC (VALVE) INSUFFICIENC 03/14/2018 PURVI LO Ot I65.23 OCCLUSION AND STENOSIS OF BILATERAL [place] 03/14/2018 MARIA ELENA DUDLEY MD Ot E78.5 HYPERLIPIDEMIA, UNSPECIFIED 03/14/2018 MARIA ELENA DUDLEY MD 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 03/14/2018 MARIA ELENA DUDLEY MD Ot I10 ESSENTIAL (PRIMARY) HYPERTENSION 03/14/2018 MARIA ELENA DUDLEY MD Ot I65.29 OCCLUSION AND STENOSIS OF UNSPECIFIED CA 03/14/2018 MARIA ELENA DUDLEY MD Ot R07.9 CHEST PAIN, UNSPECIFIED 03/14/2018 THOMAS ESQUIVEL MD Ot D50.9 IRON DEFICIENCY ANEMIA, UNSPECIFIED 03/14/2018 THOMAS ESQUIVEL MD Ot E78.00 PURE HYPERCHOLESTEROLEMIA, UNSPECIFIED 03/14/2018 THOMAS ESQUIVEL MD Ot I10 ESSENTIAL (PRIMARY) HYPERTENSION 03/14/2018 THOMAS ESQUIVEL MD Ot K21.9 GASTRO-ESOPHAGEAL REFLUX DISEASE WITHOUT 03/14/2018 THOMAS ESQUIVEL MD Ot K25.9 GASTRIC ULCER, UNSP ACUTE OR CHRONIC, 03/14/2018 THOMAS ESQUIVEL MD Ot K57.30 DVRTCLOS OF LG INT W/O PERFORATION OR AB 03/14/2018 THOMAS ESQUIVEL MD Ot K59.09 OTHER CONSTIPATION 03/14/2018 THOMAS ESQUIVEL MD Ot R19.5 OTHER FECAL ABNORMALITIES 03/14/2018 THOMAS ESQUIVEL MD Ot Z79.82 RESIDENTIAL (CURRENT) USE OF ASPIRIN 03/14/2018 THOMAS ESQUIVEL MD Ot Z79.899 OTHER RESIDENTIAL (CURRENT) DRUG THERAPY 03/14/2018 THOMAS ESQUIVEL MD Ot Z86.010 PERSONAL HISTORY OF COLONIC POLYPS 03/17/2018 THOMAS ESQUIVEL MD, Ot D50.9 IRON DEFICIENCY ANEMIA, UNSPECIFIED 03/17/2018 THOMAS ESQUIVEL MD, Ot E78.00 PURE HYPERCHOLESTEROLEMIA, UNSPECIFIED 03/17/2018 THOMAS ESQUIVEL MD Ot I10 ESSENTIAL (PRIMARY) HYPERTENSION 03/17/2018 THOMAS ESQUIVEL MD Ot K21.9 GASTRO-ESOPHAGEAL REFLUX DISEASE WITHOUT 03/17/2018 THOMAS ESQUIVEL MD Ot K25.9 GASTRIC ULCER, UNSP ACUTE OR CHRONIC, 03/17/2018 THOMAS ESQUIVEL MD Ot K57.30 DVRTCLOS OF LG INT W/O PERFORATION OR AB 03/17/2018 THOMAS ESQUIVEL MD Ot K59.09 OTHER CONSTIPATION 03/17/2018 THOMAS ESQUIVEL MD Ot R19.5 OTHER FECAL ABNORMALITIES 03/17/2018 THOMAS ESQUIVEL MD Ot Z79.82 TITLE CURATOR (CURRENT) USE OF ASPIRIN 03/17/2018 THOMAS ESQUIVEL MD Ot Z79.899 OTHER RESIDENTIAL (CURRENT) DRUG THERAPY 03/17/2018 ALVIN AYERS, THOMAS Kovacs Ot Z86.010 PERSONAL HISTORY OF COLONIC POLYPS 05/01/2018 SERGIO HERNANDEZ MD Ot 786.50 CHEST PAIN NOS 05/01/2018 SERGIO HERNANDEZ MD Ot 794.31 ABNORM ELECTROCARDIOGRAM 05/01/2018 SERGIO HERNANDEZ MD Ot 275.2 DIS MAGNESIUM METABOLISM 05/01/2018 SERGIO HERNANDEZ MD Ot 276.1 HYPOSMOLALITY 05/01/2018 SERGIO HERNANDEZ MD Ot 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 05/01/2018 SERGIO HERNANDEZ MD Ot 397.0 TRICUSPID VALVE DISEASE 05/01/2018 SERGIO HERNANDEZ MD Ot 429.3 CARDIOMEGALY 05/01/2018 SERGIO HERNANDEZ MD Ot 786.50 CHEST PAIN NOS 05/01/2018 SERGIO HERNANDEZ MD Ot 790.5 ABN SERUM ENZY LEVEL NEC 05/01/2018 SERGIO HERNANDEZ MD Ot 794.31 ABNORM ELECTROCARDIOGRAM 05/01/2018 SERGIO HERNANDEZ MD Ot 275.2 DIS MAGNESIUM METABOLISM 05/01/2018 SERGIO HERNANDEZ MD Ot 276.1 HYPOSMOLALITY 05/01/2018 SERGIO HERNANDEZ MD Ot 786.50 CHEST PAIN NOS 05/01/2018 SERGIO HERNANDEZ MD Ot 790.5 ABN SERUM ENZY LEVEL NEC 05/01/2018 SERGIO HERNANDEZ MD Ot 794.31 ABNORM ELECTROCARDIOGRAM 05/01/2018 MARIA ELENA DUDLEY MD Ot 272.4 HYPERLIPIDEMIA NEC/NOS 05/01/2018 MARIA ELENA DUDLEY MD Ot 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 05/01/2018 MARIA ELENA DUDLEY MD Ot 397.0 TRICUSPID VALVE DISEASE 05/01/2018 MARIA ELENA DUDLEY MD Ot 401.9 HYPERTENSION NOS 05/01/2018 MARIA ELENA DUDLEY MD Ot 782.3 EDEMA 05/01/2018 MARIA ELENA DUDLEY MD Ot E78.2 MIXED HYPERLIPIDEMIA 05/01/2018 MARIA ELENA DUDLEY MD Ot I10 ESSENTIAL (PRIMARY) HYPERTENSION 05/01/2018 MARIA ELENA DUDLEY MD Ot I35.1 NONRHEUMATIC AORTIC (VALVE) INSUFFICIENC 05/01/2018 MARIA ELENA DUDLEY MD Ot I65.23 OCCLUSION AND STENOSIS OF BILATERAL [place] 05/01/2018 JENAE RAMESH DO Ot M81.0 AGE-RELATED OSTEOPOROSIS W/O CURRENT PAT 05/01/2018 PURVI LO Ot E78.2 MIXED HYPERLIPIDEMIA 05/01/2018 PURVI LO Ot I10 ESSENTIAL (PRIMARY) HYPERTENSION 05/01/2018 PURVI LO Ot I35.1 NONRHEUMATIC AORTIC (VALVE) INSUFFICIENC 05/01/2018 PURVI LO Ot I65.23 OCCLUSION AND STENOSIS OF BILATERAL [place] 05/01/2018 MARIA ELENA DUDLEY MD, Ot E78.5 HYPERLIPIDEMIA, UNSPECIFIED 05/01/2018 MARIA ELENA DUDLEY MD, 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 05/01/2018 MARIA ELENA DUDLEY MD, Ot I10 ESSENTIAL (PRIMARY) HYPERTENSION 05/01/2018 MARIA ELENA DUDLEY MD, Ot I65.29 OCCLUSION AND STENOSIS OF UNSPECIFIED CA 05/01/2018 MARIA ELENA DUDLEY MD, Ot R07.9 CHEST PAIN, UNSPECIFIED 05/03/2018 SHASTA SINGH MD, Ot E78.00 PURE HYPERCHOLESTEROLEMIA, UNSPECIFIED 05/03/2018 SHASTA SINGH MD, Ot I10 ESSENTIAL (PRIMARY) HYPERTENSION 05/03/2018 SHASTA SINGH MD, Ot J10.1 FLU DUE TO OT IDENT INFLUENZA VIRUS W O 05/03/2018 SHASTA SINGH MD, Ot K21.9 GASTRO-ESOPHAGEAL REFLUX DISEASE WITHOUT 05/03/2018 SHASTA SINGH MD, Ot R05 COUGH 05/03/2018 SHASTA SINGH MD, Ot Z79.82 RESIDENTIAL (CURRENT) USE OF ASPIRIN 05/03/2018 SHASTA SINGH MD, Ot Z87.19 PERSONAL HISTORY OF OTHER DISEASES OF TH 05/03/2018 SHASTA SINGH MD, Ot Z90.49 ACQUIRED ABSENCE OF OTHER SPECIFIED PART 05/03/2018 SHASTA SINGH MD, Ot Z90.710 ACQUIRED ABSENCE OF BOTH CERVIX AND UTER 05/03/2018 SHASTA SINGH MD, Ot Z90.89 ACQUIRED ABSENCE OF OTHER ORGANS Procedures There is no data. Results Test Result Range Complete blood count (CBC) with automated white blood cell (WBC) differential - 09/11/16 23:35 Blood leukocytes automated count (number/volume) 10.6 10*3/uL 4.3-11.0 Blood erythrocytes automated count (number/volume) 4.80 10*6/uL 4.35-5.85 Venous blood hemoglobin measurement (mass/volume) 10.6 [...] Automated blood platelet mean volume measurement 9.9 [foz_us] 7.4-10.4 Automated blood neutrophils/100 leukocytes 54 % [...] Serum or plasma sodium measurement (moles/volume) 138 mmol/L 135-145 Serum or plasma potassium measurement (moles/volume) 3.5 mmol/L 3.6-5.0 Serum or plasma chloride measurement (moles/volume) 106 mmol/L 98-107 Carbon dioxide 22 mmol/L 21-32 Serum or plasma anion gap determination (moles/volume) 10 mmol/L 5-14 Serum or plasma urea nitrogen measurement (mass/volume) 9 mg/dL 7-18 Serum or plasma creatinine measurement (mass/volume) 0.85 mg/dL 0.60-1.30 Serum or plasma urea nitrogen/creatinine mass ratio 11 0 -20 Serum or plasma creatinine measurement with calculation [...] or plasma troponin i.cardiac measurement (mass/volume) < ng/ mL <0.30 Serum or plasma thyrotropin measurement by detection limit <=0.05 miu/l (units/ volume) - 09/11/16 23:35 Serum or plasma thyrotropin measurement by detection limit <=0.05 miu/l (units/ volume) 2.32 u[iU]/mL 0.35-4.94 Complete blood count (CBC) with automated white blood cell (WBC) differential - 07/12/17 06:25 Blood leukocytes automated count (number/volume) 9.0 10*3/uL 4.3-11.0 Blood erythrocytes automated count (number/volume) 4.86 10*6/uL 4.35-5.85 Venous blood hemoglobin measurement (mass/volume) 9.3 g/dL 11.5-16.0 Blood hematocrit (volume fraction) 31 % 35-52 Automated erythrocyte mean corpuscular volume 63 [foz_us] 80-99 Automated erythrocyte mean corpuscular hemoglobin (mass per erythrocyte) 19 pg 25-34 Automated erythrocyte mean corpuscular hemoglobin concentration measurement ( mass/volume) 31 g/dL 32-36 Automated erythrocyte distribution width ratio 19.1 % 10.0-14.5 Automated blood platelet count (count/volume) 391 10*3/uL 130-400 Automated blood platelet mean volume measurement 9.5 [foz_us] 7.4-10.4 Automated blood neutrophils/100 leukocytes 66 % 42-75 Automated blood lymphocytes/100 leukocytes 23 % 12-44 Blood monocytes/100 leukocytes 9 % 0-12 Automated blood eosinophils/100 leukocytes 2 % 0-10 Automated blood basophils/100 leukocytes 0 % 0-10 Blood neutrophils automated count (number/volume) 5.9 10*3 1.8-7.8 Blood lymphocytes automated count (number/volume) 2.1 10*3 1.0-4.0 Blood monocytes automated count (number/volume) 0.8 10*3 0.0-1.0 Automated eosinophil count 0.2 10*3/uL 0.0-0.3 Automated blood basophil count (count/volume) 0.0 10*3/uL 0.0-0.1 Comprehensive metabolic panel - 07/12/17 06:25 Serum or plasma sodium measurement (moles/volume) 139 mmol/L 135-145 Serum or plasma potassium measurement (moles/volume) 3.9 mmol/L 3.6-5.0 Serum or plasma chloride measurement (moles/volume) 108 mmol/L 98-107 Carbon dioxide 23 mmol/L 21-32 Serum or plasma anion gap determination (moles/volume) 8 mmol/L 5-14 Serum or plasma urea nitrogen measurement (mass/volume) 10 mg/dL 7-18 Serum or plasma creatinine measurement (mass/volume) 0.69 mg/dL 0.60-1.30 Serum or plasma urea nitrogen/creatinine mass ratio 14 NRG Serum or plasma creatinine measurement with calculation of estimated glomerular filtration rate > NRG Serum or plasma glucose measurement (mass/volume) 121 mg/dL 70-105 Serum or plasma calcium measurement (mass/volume) 8.5 mg/dL 8.5-10.1 Serum or plasma total bilirubin measurement (mass/volume) 0.9 mg/dL 0.1-1.0 Serum or plasma alkaline phosphatase measurement (enzymatic activity/volume) 66 U/L 40-136 Serum or plasma aspartate aminotransferase measurement (enzymatic activity/ volume) 12 U/L 5-34 Serum or plasma alanine aminotransferase measurement (enzymatic activity/volume ) 8 U/L 0-55 Serum or plasma protein measurement (mass/volume) 6.9 g/dL 6.4-8.2 Serum or plasma albumin measurement (mass/volume) 3.6 g/dL 3.2-4.5 Magnesium - 07/12/17 06:25 Magnesium 1.9 mg/dL 1.8-2.4 Serum or plasma troponin i.cardiac measurement (mass/volume) - 07/12/17 06:25 Serum or plasma troponin i.cardiac measurement (mass/volume) < ng/ mL <0.30 THYROID STIMULATING HORMONE - 07/12/17 06:25 THYROID STIMULATING HORMONE 1.87 u[iU]/mL 0.35-4.94 Serum or plasma thyroxine (T4) free measurement (mass/volume) - 07/12/17 06:25 Serum or plasma thyroxine (T4) free measurement (mass/volume) 1.06 ng/dL 0.70-1.48 Serum iron and total iron binding capacity panel - 07/12/17 06:25 Serum or plasma iron measurement (mass/volume) 14 % 35- 180 Total iron binding capacity and transferrin saturation measurement 4 % 15-50 Iron binding capacity [mass/volume] in serum or plasma 384 % 280-380 UIBC (unsaturated iron binding capacity) 370 % 55-450 Serum or plasma ferritin measurement (mass/volume) 4.0 % 15.0-150.0 Complete urinalysis with reflex to culture - 07/12/17 07:35 Urine color determination YELLOW NRG Urine clarity determination CLEAR NRG Urine pH measurement by test strip 8 5-9 Specific gravity of urine by test strip 1.010 1.016- 1.022 Urine protein assay by test strip, semi-quantitative NEGATIVE NEGATIVE Urine glucose detection by automated test strip NEGATIVE NEGATIVE Erythrocytes detection in urine sediment by light microscopy 1+ NEGATIVE Urine ketones detection by automated test strip NEGATIVE NEGATIVE Urine nitrite detection by test strip NEGATIVE NEGATIVE Urine total bilirubin detection by test strip NEGATIVE NEGATIVE Urine urobilinogen measurement by automated test strip (mass/volume) 1 mg/dL NORMAL Urine leukocyte esterase detection by dipstick 1+ NEGATIVE Automated urine sediment erythrocyte count by microscopy (number/high power field) [HPF] NRG Automated urine sediment leukocyte count by microscopy (number/high power field ) [HPF] NRG Bacteria detection in urine sediment by light microscopy TRACE NRG Squamous epithelial cells detection in urine sediment by light microscopy 0-2 NRG Crystals detection in urine sediment by light microscopy NONE NRG Casts detection in urine sediment by light microscopy NONE NRG Mucus detection in urine sediment by light microscopy NEGATIVE NRG Complete urinalysis with reflex to culture NO NRG eGFR - 01/23/18 10:26 Creat 0.75 mg/dL 0.50-1.50 eGFR 74 mL/min/1.73m2 >59 Blood Urea Nitrogen - 01/23/18 10:26 BUN 17 mg/dL 5-25 Influenza virus A and B antigen detection - 04/30/18 23:44 CALL POSITIVES (F1 HELP) CALLED TO LEONIDAS IN ER@0003 NR FLU RESULT POSITIVE FOR INFLUENZA A ANTIGEN, NEG FOR B ANTIGEN, BY IA NRG Complete blood count (CBC) with automated white blood cell (WBC) differential - 05/01/18 00:35 Blood leukocytes automated count (number/volume) 7.8 10*3/uL 4.3-11.0 Blood erythrocytes automated count (number/volume) 4.42 10*6/uL 4.35-5.85 Venous blood hemoglobin measurement (mass/volume) 7.5 g/dL 11.5-16.0 Blood hematocrit (volume fraction) 26 % 35-52 Automated erythrocyte mean corpuscular volume 58 [foz_us] 80-99 Automated erythrocyte mean corpuscular hemoglobin (mass per erythrocyte) 17 pg 25-34 Automated erythrocyte mean corpuscular hemoglobin concentration measurement ( mass/volume) 29 g/dL 32-36 Automated erythrocyte distribution width ratio 19.6 % 10.0-14.5 Automated blood platelet count (count/volume) 377 10*3/uL 130-400 Automated blood platelet mean volume measurement 9.5 [foz_us] 7.4-10.4 Automated blood neutrophils/100 leukocytes 76 % 42-75 Automated blood lymphocytes/100 leukocytes 7 % 12-44 Blood monocytes/100 leukocytes 17 % 0-12 Automated blood eosinophils/100 leukocytes 0 % 0-10 Automated blood basophils/100 leukocytes 0 % 0-10 Blood neutrophils automated count (number/volume) 6.0 10*3 1.8-7.8 Blood lymphocytes automated count (number/volume) 0.5 10*3 1.0-4.0 Blood monocytes automated count (number/volume) 1.3 10*3 0.0-1.0 Automated eosinophil count 0.0 10*3/uL 0.0-0.3 Automated blood basophil count (count/volume) 0.0 10*3/uL 0.0-0.1 Comprehensive metabolic panel - 05/01/18 00:35 Serum or plasma sodium measurement (moles/volume) 132 mmol/L 135-145 Serum or plasma potassium measurement (moles/volume) 4.0 mmol/L 3.6-5.0 Serum or plasma chloride measurement (moles/volume) 101 mmol/L 98-107 Carbon dioxide 20 mmol/L 21-32 Serum or plasma anion gap determination (moles/volume) 11 mmol/L 5-14 Serum or plasma urea nitrogen measurement (mass/volume) 16 mg/dL 7-18 Serum or plasma creatinine measurement (mass/volume) 0.76 mg/dL 0.60-1.30 Serum or plasma urea nitrogen/creatinine mass ratio 21 NRG Serum or plasma creatinine measurement with calculation of estimated glomerular filtration rate > NRG Serum or plasma glucose measurement (mass/volume) 127 mg/dL 70-105 Serum or plasma calcium measurement (mass/volume) 8.4 mg/dL 8.5-10.1 Serum or plasma total bilirubin measurement (mass/volume) 0.7 mg/dL 0.1-1.0 Serum or plasma alkaline phosphatase measurement (enzymatic activity/volume) 65 U/L 40-136 Serum or plasma aspartate aminotransferase measurement (enzymatic activity/ volume) 17 U/L 5-34 Serum or plasma alanine aminotransferase measurement (enzymatic activity/volume ) 8 U/L 0-55 Serum or plasma protein measurement (mass/volume) 7.0 g/dL 6.4-8.2 Serum or plasma albumin measurement (mass/volume) 3.5 g/dL 3.2-4.5 CALCIUM CORRECTED 8.8 mg/dL 8.5-10.1 Encounters ACCT No. Visit Date/Time Discharge Status Pt. Type Provider Facility Loc./Unit Complaint [id number] 04/30/2018 22:59:00 05/01/2018 02:04:00 DIS Outpatient SAMANTHA AYERS, SHASTA Lamas [facility] ER ACHY,HEADACHE, CONGESTED [id number] 03/14/2018 10:48:00 03/14/2018 14:00:00 DIS Outpatient THOMAS ESQUIVEL MD [facility] ENDO IRON DEF ANEMIA/ OCCULT POSITIVE STOOLS [id number] 03/08/2018 05:50:00 03/08/2018 14:24:00 DIS Outpatient THOMAS ESQUIVEL MD [facility] PREOP COLONOSCOPY/EGD [id number] 07/12/2017 06:13:00 07/12/2017 08:53:00 DIS Emergency ABIDA AYERS, URSZULA Vasquez [facility] ER DIZZY [id number] 07/02/2017 09:06:00 07/02/2017 23:59:59 CLS Outpatient MARIA ELENA DUDLEY MD [facility] AR,CAROTID ARTERY STENOSIS [id number] 09/12/2016 04:05:00 09/13/2016 13:07:00 DIS Outpatient SE JUSTICE MD [facility] RT WRIST INJURY [id number] 03/30/2016 08:41:00 03/30/2016 23:59:59 CLS Outpatient PURVI LO [facility] AR,HTN, [id number] 04/04/2015 12:39:00 04/04/2015 23:59:59 CLS Outpatient JENAE RAMESH DO [facility] AGE-RELATED OSTEOPOROSIS M81.0 [id number] 02/28/2015 07:43:00 02/28/2015 23:59:59 CLS Outpatient MARIA ELENA DUDLEY MD [facility] AR, CAROTID ARTERY STENOSIS, HTN, HYPERLIPIDEMIA [id number] 11/18/2014 14:00:00 11/18/2014 23:59:59 CLS Outpatient ASADАНДРЕЙ Wilda MCKEONN [facility] QUICK [id number] 01/23/2014 10:46:00 01/23/2014 23:59:59 CLS Outpatient MARIA ELENA DUDLEY MD [facility] CARD AR,HTN,HLP,SKYLER, PERIPHERAL EDEMA [id number] 12/14/2012 07:37:00 12/14/2012 23:59:59 CLS Outpatient SERIGO HERNANDEZ MD [facility] RAD CHEST PAIN [id number] 12/12/2012 10:35:00 12/12/2012 23:59:59 CLS Outpatient SERGIO HERNANDEZ MD [facility] CARD CHEST PAIN [id number] 12/08/2012 09:19:00 12/08/2012 23:59:59 CLS Outpatient SERGIO HERNANDEZ MD [facility] LAB CP,ABN ECH,LOW MG, LOW LIYA,ELEVATED ALK PHOS [id number] 12/05/2012 22:00:00 12/06/2012 13:00:00 DIS Inpatient MARIA ELENA DUDLEY MD [facility] 4TH CHEST PAIN [id number] 05/04/2018 18:10:00 ACT Inpatient CAROLINE BELLO MD [facility] 4TH INFUENZA A SYNDROME,HEMORRHAGIC ANEMIA [id number] 06/30/2012 08:32:00 Document Registration [id number] 02/01/2012 08:03:00 Document Registration [id number] 01/29/2012 08:02:00 Document Registration [id number] 01/02/2010 09:25:00 Document Registration [id number] 11/18/2014 14:01:33 ACT Document Registration [id number] 01/23/2018 00:00:00 01/23/2018 23:59:00 DIS Outpatient Nigel Casillas [id number] 08/10/2017 12:45:00 08/10/2017 23:59:00 DIS Outpatient JENAE RAMESH
[2018-05-04] MEDS: OSELTAMIVIR 75 MG (TAMIFLU) CAPSULE PO SCH (18:42)
[2018-05-04] MEDS: NS IV 1000 ML 1,000 ML IV SCH (18:42)
--- NOTE | 2018-05-04 20:57 | NUR ---
This RN called Dr. Ratliff in reference to the patient wanting breathing treatments. Dr. Ratliff ordered for the patient to be a MAT. Order is repeated and confirmed.
[2018-05-04] MEDS ORDERED: OSELTAMIVIR 75 MG (TAMIFLU) CAPSULE PO SCH (21:00)
[2018-05-04 21:45] LABS: BASOPHILS % (AUTO) 0 % (0-10); EOSINOPHILS % (AUTO) 0 % (0-10); HEMATOCRIT 23 % (35-52); LYMPHOCYTES # (AUTO) 0.9 X 10^3 (1.0-4.0); LYMPHOCYTES % (AUTO) 20 % (12-44); MEAN CORPUSCULAR HEMOGLOBIN 17 PG (25-34); MEAN CORPUSCULAR HGB CONC 30 G/DL (32-36); MEAN CORPUSCULAR VOLUME 58 FL (80-99); MEAN PLATELET VOLUME 9.5 FL (7.4-10.4); MONOCYTES # (AUTO) 0.5 X 10^3 (0.0-1.0); MONOCYTES % (AUTO) 11 % (0-12); NEUTROPHILS # (AUTO) 3.3 X 10^3 (1.8-7.8); NEUTROPHILS % (AUTO) 69 % (42-75); PLATELET COUNT 343 10^3/uL (130-400); RED CELL DISTRIBUTION WIDTH 20.1 % (10.0-14.5); WHITE BLOOD COUNT 4.7 10^3/uL (4.3-11.0)
[2018-05-04 21:58] LABS: HEMOGLOBIN 6.9 G/DL (11.5-16.0)
--- NOTE | 2018-05-04 21:58 | NUR ---
This RN called Dr. Ratliff in reference to a critical hgb of 6.9. No new orders are received. Will continue to monitor.
[2018-05-04 22:06] LABS: BUN/CREATININE RATIO 17; CARBON DIOXIDE 24 MMOL/L (21-32); CHLORIDE 101 MMOL/L (98-107); CREATININE SERUM 0.71 MG/DL (0.60-1.30); GFR ESTIMATED > 60; GLUCOSE 118 MG/DL (70-105); POTASSIUM 3.4 MMOL/L (3.6-5.0); SODIUM 132 MMOL/L (135-145)
[2018-05-04] MEDS ORDERED: RT-ALBUTEROL/IPRATROPIUM 3 ML (DUONEB) VIAL ONE (22:15)
[2018-05-04] MEDS ORDERED: RT-ALBUTEROL/IPRATROPIUM 3 ML (DUONEB) VIAL INH PRN (23:15)
[2018-05-05] VITALS (10 sets, daily range): BP systolic 132–180; BP diastolic 60–71
[2018-05-05 05:48] LABS: BASOPHILS % (AUTO) 0 % (0-10); EOSINOPHILS % (AUTO) 1 % (0-10); HEMATOCRIT 24 % (35-52); LYMPHOCYTES # (AUTO) 1.6 X 10^3 (1.0-4.0); LYMPHOCYTES % (AUTO) 30 % (12-44); MEAN CORPUSCULAR HEMOGLOBIN 17 PG (25-34); MEAN CORPUSCULAR HGB CONC 29 G/DL (32-36); MEAN CORPUSCULAR VOLUME 59 FL (80-99); MEAN PLATELET VOLUME 9.1 FL (7.4-10.4); MONOCYTES # (AUTO) 0.6 X 10^3 (0.0-1.0); MONOCYTES % (AUTO) 11 % (0-12); NEUTROPHILS % (AUTO) 58 % (42-75); PLATELET COUNT 344 10^3/uL (130-400); RED CELL DISTRIBUTION WIDTH 19.7 % (10.0-14.5); WHITE BLOOD COUNT 5.2 10^3/uL (4.3-11.0)
[2018-05-05 06:22] LABS: ALANINE AMINOTRANSFERASE 9 U/L (0-55); ALBUMIN 3.2 GM/DL (3.2-4.5); ALKALINE PHOSPHATASE 49 U/L (40-136); BILIRUBIN,TOTAL 0.5 MG/DL (0.1-1.0); BUN/CREATININE RATIO 13; CALCIUM 7.8 MG/DL (8.5-10.1); CARBON DIOXIDE 22 MMOL/L (21-32); CHLORIDE 103 MMOL/L (98-107); CREATININE SERUM 0.68 MG/DL (0.60-1.30); GFR ESTIMATED > 60; GLUCOSE 98 MG/DL (70-105); POTASSIUM 3.6 MMOL/L (3.6-5.0); SODIUM 133 MMOL/L (135-145); TOTAL PROTEIN 6.2 GM/DL (6.4-8.2)
[2018-05-05] MEDS: OSELTAMIVIR 75 MG (TAMIFLU) CAPSULE PO SCH (06:29)
[2018-05-05] MEDS: NS IV 1000 ML 1,000 ML IV SCH ×2 (07:49→23:24)
[2018-05-05] MEDS: RT-ALBUTEROL/IPRATROPIUM 3 ML (DUONEB) VIAL INH SCH ×3 (08:37→19:56)
[2018-05-05] MEDS: ONDANSETRON 4 MG/2 ML (SDV) Z0FRAN IV PRN (09:33)
--- NOTE | 2018-05-05 10:02 | Physical Therapy Evaluation ---
PT Evaluation-General Medical Diagnosis Admission Date May 04, 2018 at 18:10 Medical Diagnosis: Influenza A Onset Date: May 04, 2018 Therapy Diagnosis Therapy Diagnosis: decreased mobility Height/Weight Height (Feet): 5 Height (Inches): 2.00 Weight (Pounds): 179 Weight (Ounces): 0.0 Precautions Precautions/Isolations: Fall Prevention, Standard Precautions Weight Bear Status Right Lower Extremity: Right Weight Bearing/Tolerated Left Lower Extremity: Left Weight Bearing/Tolerated Referral Physician: Dr. Monroe Reason for Referral: Evaluation/Treatment Social History Home: Single Level Current Living Status: Alone Entry Into Home: Ramp, Stairs With Railing PT Steps Into Home: 2 Prior/Core FIM Prior Level of Function Therapy Code Descriptions/Definitions Functional [place] Measure: 0=Not Assessed/NA 4=Minimal Assistance 1=Total Assistance 5=Supervision or Setup 2=Maximal Assistance 6=Modified [place] 3=Moderate Assistance 7=Complete [place] Therapy Quality Codes: 6 Independent with activity with or without an assistive device 5 Patient requires set up or clean up by helper. Patient completes activity by themselves 4 Supervision or touching assist (CGA). [place] provide cues , steadying assist 3 The helper provides less than half the effort to complete the activity 2 The helper provides more than half the effort to complete the activity 1 Dependent. The helper does all the effort to complete an activity 7 Patient refused to complete or attempt activity 9 The patient did not perform the activity before the current illness or injury 88 Not attempted due to Medical conditions or safety concerns Functional Abilities and Goals: Independent: Patient completed the activities by him/herself, with or without an assistive device, with no assistance from a helper. Needed Some Help: Patient needed partial assistance from another person to complete activities. Dependent: A helper completed the activities for the patient. Unknown: Not Applicable: Bed Mobility: 7 Transfers (B,C,W/C) (FIM): 6 Gait: 6 Stairs: 6 Indoor Mobility (Ambulation): Independent Stairs: Independent Prior Devices Use: Walker Prior Device Use: FWW, Cane PT Evaluation-Current Subjective Pt in bed and agrees to PT. Reports she feels very nauseous. Pt/Family Goals Pt to return home. Objective Patient Orientation: Person, Place, Situation, Normal For Age Attachments: SCD's, IV ROM/Strength ROM Lower Extremities NT Strength Lower Extremities NT Integumentary/Posture Bowel Incontinence: No Bladder Incontinence: No Neuromuscular (Tone, Coordination, Reflexes) NT Sensory Vision: Functional Hearing: Functional Sensation Lower Extremities NT Transfers Therapy Code Descriptions/Definitions Functional [place] Measure: 0=Not Assessed/NA 4=Minimal Assistance 1=Total Assistance 5=Supervision or Setup 2=Maximal Assistance 6=Modified [place] 3=Moderate Assistance 7=Complete [place] Transfers (B, C, W/C) (FIM): 4 Scootin Supine to/from Sit: 5 Sit to/from Stand: 4 Gait Mode of Locomotion: Walk Anticipated Mode of Locomotion: Walk Distance (FIM): 1=up to 49 ft Distance: 30' Gait Level of Assist: 4 Gait Persons Needed: 1 Gait Assistive Device: FWW Balance Sitting Static: Good Sitting Dynamic: Good Standing Static: Good Standing Dynamic: Good Assessment/Needs Pt was able to perform bed mobility with SBA. Pt able to perform sit<>stand from EOB to FWW with CGA for safety. Pt amb 30' with FWW and CGA for safety. Pt is up in recliner with all needs met. PT left a note on Dr. Monroe's desk notifying her of pt request for something for her nausea. Rehab Potential: Fair PT Short Term Goals Short Term Goals Time Frame: May 12, 2018 Transfers (B,C,W/C) (FIM): 5 Gait (FIM): 2 Distance (FIM): 4=283-55 ft Gait Distance Comment: 50' Gait Level of Assist: 5 Gait Assistive Device: FWW PT Plan Problem List Problem List: Activity Tolerance, Functional Strength, Safety, Balance, Gait, Transfer, Bed Mobility, ROM Treatment/Plan Treatment Plan: Continue Plan of Care Treatment Plan: Bed Mobility, Education, Functional Activity [place], Functional Strength, Gait, Safety, Therapeutic Exercise, Transfers Treatment Duration: May 12, 2018 Frequency: 6 times per week Estimated Hrs Per Day: .25 hour per day Patient and/or Family Agrees t: Yes Safety Risks/Education Patient Education: Gait Training, Transfer Techniques, Correct Positioning, Safety Issues Teaching Recipient: Patient Teaching Methods: Demonstration, Discussion Discharge Recommendations Therapy D/C Recommendations: Home Independently Time/GCodes Time In: 916 Time Out: 928 Total Billed Treatment Time: 12 Total Billed Treatment 1 visit EVL 12 min NIKHIL TORRES PT May 05, 2018 10:02
[2018-05-05] MEDS ORDERED: CNC1KV INJ (10:19)
--- NOTE | 2018-05-05 10:21 | NUR ---
WENT OVER THE EXT MED HX WITH THE PATIENT AND SHE VERIFIED HOW SHE TAKES EACH MEDICATION.
[2018-05-05 10:37] LABS: RETICULOCYTE % 1.03 % (0.50-2.40)
[2018-05-05] MEDS ORDERED: NS IV 500 ML 500 ML IV SCH (12:30)
--- NOTE | 2018-05-05 12:31 | History & Physical-Hospitalist ---
History of Present Illness HPI/Chief Complaint Pt is an 82yoCF who was direct admitted from Dr Alicea's clinic from weakness , influenza, and anemia. She states that she hasn't been feeling well since this fall and has undergone work up for her anemia. She had an EGD and colonoscopy on 03/14 that revealed h pylori. She underwent treatment with triple therapy. Over the past week she started to feel ill again with nausea and had poor oral intake. She was very weak as well. She was seen in the Er on and found to be positive for Flu A. She was started on Tamiflu but she felt that made her sick as well. Despite that she complied with therapy. She was seen for follow up by her PCP Dr Alicea yesterday and was found to be anemic still at 7.5. She was then admitted for further management. Today she states she is feeling a little better but still nausea and somewhat weak. She was able to work with PT this morning. Source: patient Exam Limitations: no limitations Date Seen 05/05/18 Time Seen by a Provider: 12:35 Attending Physician Caroline Monroe MD PCP Tera Alicea DO Referring Physician Date of Admission May 04, 2018 at 18:10 Home Medications & Allergies Home Medications Reviewed patient Home Medication Reconciliation performed by pharmacy medication reconciliations cnc technician and/or nursing. Patients Allergies have been reviewed. Allergies Allergies Coded Allergies No Known Drug Allergies ([id number]/18/18) Past [id number] Hx Past Med/Social Hx: Reviewed Nursing Past Med/Soc Hx Patient Social History Employed/Student: retired Alcohol Use: Denies Use Recreational Drug Use: No 2nd Hand Smoke Exposure: No Physical Abuse Screen: No Sexual Abuse: No Recent Hopitalizations: No Immunizations Up To Date Tetanus Booster (TDap): More than 5yrs Pediatric: Yes Date of Pneumonia Vaccine: Aug 20, 2012 Date of Influenza Vaccine: Dec 27, 2017 Seasonal Allergies Seasonal Allergies: No Past Medical History Surgeries: Adenoidectomy, Appendectomy, Eye Surgery, Gallbladder, Hysterectomy , Thyroidectomy, Tonsillectomy Cardiac: High Cholesterol, Hypertension Reproductive: No Sexually Transmitted Disease: No HIV/AIDS: No Menopausal Gastrointestinal: Gastroesophageal Reflux, Chronic Constipation Endocrine: Parathyroid Disease HEENT: Cataract Loss of Vision: Denies Hearing Impairment: Denies History of Blood Disorders: No Adverse Reaction to Blood Tan: No Family History Reviewed Nursing Family Hx Completed stroke Hypertension Myocardial infarction Review of Systems Constitutional: malaise, weakness Respiratory: No dyspnea on exertion, No short of breath Cardiovascular: No chest pain, No palpitations Gastrointestinal: No hematemesis; loss of appetite; No melena; nausea Musculoskeletal: muscle weakness All Other Systems Reviewed Negative Unless Noted: Yes (Negative excepted noted.) Physical Exam Physical Exam Vital Signs Vital Signs - First Documented 05/04/18 05/05/18 19:22 00:57 Temp 99.0 Resp 14 B/P (MAP) 145/63 (90) O2 Delivery Room Air Capillary Refill : Height, Weight, BMI Height: 5'2.00" Weight: 179lbs. 0.0oz. [id number]; 32.7 BMI Method:Stated General Appearance: No Apparent Distress, WD/WN HEENT: PERRL/EOMI, Moist Mucous Membranes; No Scleral Icterus (L), No Scleral Icterus (R) Respiratory: Lungs Clear, No Accessory Muscle Use, No Respiratory Distress Cardiovascular: Regular Rate, Rhythm, No JVD, No Murmur Gastrointestinal: Normal Bowel Sounds, Non Tender, Soft Extremity: No Calf Tenderness, No Pedal Edema Neurologic/Psychiatric: Alert, Oriented x3 Skin: Normal Color, Warm/Dry Lymphatic: No Adenopathy Results Results/Procedures Labs Laboratory Tests 05/04/18 21:15 05/05/18 05:40 05/06/18 05:54 Patient resulted labs reviewed. Assessment/Plan Admission Diagnosis Influenza A Admission Status: Inpatient Order (span 2 midnights) Reason for Inpatient Admission: Failed outpatient management Diagnosis/Problems Diagnosis/Problems (1) Influenza A Assessment & Plan: Has completed tamiflu Still profoundly weak PT/OT consulted (2) Microcytic anemia Status: Chronic Assessment & Plan: Had EGD and Colonoscopy on 03/14/18 Persistently anemic retic count normal (should be high) Heme consulted, appreciate recs Discussed with Dr Barkley who recommended peripheral smear, iron studies- ordered transfusion x1 pRBCs (3) Essential (primary) hypertension Assessment & Plan: Resume home meds (4) H pylori ulcer Assessment & Plan: Per patient has completed triple therapy Surgery consulted, appreciate recs Clinical Quality Measures DVT/VTE Risk/Contraindication: Risk Factor Score Per Nursin RFS Level Per Nursing on Admit: 3=High CAROLINE MONROE MD May 05, 2018 12:31
[2018-05-05 12:50] LABS: ABSOLUTE RETIC # 42 10e9/L (24-90); BASOPHILS % (AUTO) 0 % (0-10); EOSINOPHILS % (AUTO) 1 % (0-10); HEMATOCRIT 24 % (35-52); LYMPHOCYTES # (AUTO) 1.6 X 10^3 (1.0-4.0); LYMPHOCYTES % (AUTO) 30 % (12-44); MEAN CORPUSCULAR HEMOGLOBIN 17 PG (25-34); MEAN CORPUSCULAR HGB CONC 29 G/DL (32-36); MEAN CORPUSCULAR VOLUME 59 FL (80-99); MEAN PLATELET VOLUME 9.1 FL (7.4-10.4); MONOCYTES # (AUTO) 0.6 X 10^3 (0.0-1.0); MONOCYTES % (AUTO) 11 % (0-12); NEUTROPHILS % (AUTO) 58 % (42-75); PLATELET COUNT 344 10^3/uL (130-400); RED CELL DISTRIBUTION WIDTH 19.7 % (10.0-14.5); RETICULOCYTE % 1.03 % (0.50-2.40); WHITE BLOOD COUNT 5.2 10^3/uL (4.3-11.0)
[2018-05-05] MEDS ORDERED: METOCLOPRAMIDE HCL 5 MG PO SCH (13:00)
--- NOTE | 2018-05-05 13:44 | NUR ---
CM/SS, respond to consult. Patient plans home alone at discharge with continued support from her children and their families. Patient has FWW that she uses, she does not cook for self but her family members take turns providing. Her BASHIR is Judah, [employer] in [employer], for 42 years. His /her daughter Joeen here at bedside and confirms plans. Inquired about HHC, patient does not believe she would need this service. No further interventions unless situation changes to warrant.
[2018-05-05] MEDS: METOCLOPRAMIDE 5 MG (REGLAN) TAB PO SCH ×2 (14:44→20:01)
--- NOTE | 2018-05-05 14:46 | NUR ---
HAS NS RUNNING DO NOT NEED
[2018-05-05 15:25] LABS: BAND NEUTROPHILS 1 %; LYMPHOCYTES % (MANUAL) 24 %; NEUTROPHILS % (MANUAL) 61 %
[2018-05-05 15:26] LABS: BASOPHILS % (MANUAL) 0 %; EOSINOPHILS % (MANUAL) 2 %; MONOCYTES % (MANUAL) 2 %; REACTIVE LYMPHOCYTES 10 %
[2018-05-05 15:27] LABS: ANISOCYTOSIS MARKED; HYPOCHROMASIA MODERATE; POIKILOCYTOSIS MODERATE
[2018-05-05 15:29] LABS: MICROCYTOSIS MODERATE; SPHEROCYTES MODERATE
[2018-05-05 15:32] LABS: ACANTHOCYTES SLIGHT; ELLIPT/OVALOCYTES MODERATE; TARGET CELLS RARE
[2018-05-05 15:33] LABS: TOXIC GRANULATION/VACUOLAZATIO 1+
--- NOTE | 2018-05-05 16:30 | Occ Therapy Progress Note ---
Therapy Progress Note OT order received, chart reviewed. Went in to speak with pt. Family member in room. Pt. receiving blood and states that she just got back to bed. That she sat up in chair for two hours. Family member confirms this. Pt. states that she would rather not get up right now, as she is getting blood. OT will see pt. in a.m. 1, visit 1500 GLENNA DE PAZ OT May 05, 2018 16:30
[2018-05-05] MEDS: PANTOPRAZOLE 40 MG (PROTONIX) TAB PO SCH (20:01)
[2018-05-05] MEDS: LATANOPROST 0.005% (XALATAN) OPHTH SOLN 2.5 ML OU SCH (20:02)
[2018-05-05] MEDS: MELATONIN 3 MG TABLET PO PRN (20:07)
--- NOTE | 2018-05-05 21:06 | CONSULTATION REPORT ---
DATE OF SERVICE: 05/05/2018 The patient is admitted to room 413. REFERRING PHYSICIAN: Mariah Monroe MD IMPRESSION: 1. An 82-year-old female admitted to the hospital with increasing weakness and found to have influenza A. 2. Microcytic anemia, clinically consistent with iron deficiency. 3. History of peptic ulcer disease and H. pylori infection diagnosed in February 2018, status post antibiotic therapy. 4. Chronic history of anemia with inability to tolerate oral iron. Previous blood transfusion in the 1980s prior to hysterectomy. RECOMMENDATIONS: 1. Agree with serum iron studies and peripheral smear. 2. Agree with transfusion of 1 unit of packed red blood cells to maintain hemoglobin closer to 8 grams per deciliter. 3. If the ferritin level is significantly low, the patient will need parenteral iron therapy because of inability to tolerate oral iron. 4. She will need outpatient followup to rule out continued GI blood loss. BRIEF HISTORY: The patient is an 82-year-old female who was admitted to the hospital with increasing fatigue and found to be positive for influenza A. She was also found to be significantly anemic. She was ordered a unit of packed red blood cell transfusion and hematology consultation was requested for further evaluation and management. PAST MEDICAL HISTORY: Significant for hypertension. She has been on treatment at least 25 plus years. The patient also gives history of peptic ulcer disease diagnosed following an EGD and colonoscopy in February 2018 because of persistent anemia. She was also found to have H. pylori infection and was treated with double antibiotic therapy and is continuing on proton pump inhibitor. She gives a long-standing history of anemia with inability to tolerate oral iron because of abdominal problems. She has required packed red blood cell transfusion once before prior to her hysterectomy in 1979. PREVIOUS SURGICAL HISTORY: Include hysterectomy in 1979. She has had a tonsillectomy and adenoidectomy in childhood and appendectomy. She also had a cholecystectomy. She has history of fall and fracture of right forearm requiring open reduction and internal fixation a year ago. This was later revised with plate and screws. She has had bilateral cataract surgeries with intraocular lens implants. Also gives history of glaucoma. She has had a subtotal thyroidectomy for a benign growth in the remote past. SOCIAL HISTORY: The patient is and lives by herself in [place], [place]. She has two children, a son and a daughter, both of whom live close by. She denied any tobacco, alcohol or other recreational drug use. FAMILY HISTORY: Unremarkable with no major hematologic or oncologic problems in the family. There is a history of coronary artery disease in the family. PHYSICAL EXAMINATION: GENERAL: Today showed an elderly female, well-developed, well-nourished, awake and oriented and in no acute distress. VITAL SIGNS: Temperature was 98.9, pulse rate of 83, respirations 20, blood pressure 138/62, oxygen saturation of 96% on room air. HEENT: Normocephalic, extraocular muscles intact, conjunctivae pale, oral mucosa moist. NECK: Supple, with no JVD. SKIN: No cervical, supraclavicular or axillary lymphadenopathy palpable. CHEST: Symmetrical. LUNGS: Fairly clear to auscultation without wheezes or rales. CARDIOVASCULAR: Regular in rate and rhythm with occasional missed beats. Grade II systolic murmur was heard. ABDOMEN: Obese, soft with a ventral hernia that is easily reducible. No hepatosplenomegaly or other masses palpable. EXTREMITIES: Showed no edema. NEUROLOGIC: Grossly intact without focal motor deficits. LABORATORY DATA: CBC done last night at the emergency room showed white count of 4.7, hemoglobin 6.9, MCV 58, RDW 20.1, platelet count 343,000 with neutrophil count of 3.3 and lymphocyte count of 0.9. Repeat CBC done ocean fishing guide showed white count of 5.2 with hemoglobin 7.0 and platelet count 344,000. Absolute reticulocyte count was 42,000. I reviewed the peripheral smear, which showed a significant microcytosis and anisopoikilocytosis. Hypochromasia was seen in some cells with dimorphic population of cells seen. White blood cells appeared normal with reactive appearing lymphocytes. No immature cells identified. Platelets appeared normal morphologically. Chemistry panel done today showed relatively normal electrolytes except sodium level of 133. BUN was 9 and creatinine 0.68 with GFR more than 60 mL per minute. Liver function studies were within normal limits. Serum iron studies are pending from today. Thank you for allowing me to participate in this patient's care. I will follow the patient with you and make appropriate recommendations. Job ID: [id number] DocumentID: [id number] Dictated Date: 05/05/2018 18:38:30 Architectural Administrative Assistant Date: 05/05/2018 21:05:27 Dictated By: ERUM SAMSON MD
[2018-05-06 03:59] VITALS: BP 163/69
[2018-05-06 06:30] LABS: BASOPHILS % (AUTO) 0 % (0-10); EOSINOPHILS % (AUTO) 1 % (0-10); LYMPHOCYTES # (AUTO) 0.9 X 10^3 (1.0-4.0); LYMPHOCYTES % (AUTO) 16 % (12-44); MEAN CORPUSCULAR HGB CONC 30 G/DL (32-36); MEAN CORPUSCULAR VOLUME 61 FL (80-99); MEAN PLATELET VOLUME 9.9 FL (7.4-10.4); MONOCYTES # (AUTO) 0.6 X 10^3 (0.0-1.0); MONOCYTES % (AUTO) 11 % (0-12); NEUTROPHILS # (AUTO) 3.8 X 10^3 (1.8-7.8); NEUTROPHILS % (AUTO) 72 % (42-75); RED CELL DISTRIBUTION WIDTH 22.8 % (10.0-14.5)
[2018-05-06 06:34] LABS: HEMATOCRIT 26 % (35-52); HEMOGLOBIN 7.5 G/DL (11.5-16.0); MEAN CORPUSCULAR HEMOGLOBIN 18 PG (25-34); PLATELET COUNT 169 10^3/uL (130-400); WHITE BLOOD COUNT 5.9 10^3/uL (4.3-11.0)
[2018-05-06 06:44] LABS: BUN/CREATININE RATIO 10; CALCIUM 7.7 MG/DL (8.5-10.1); CARBON DIOXIDE 17 MMOL/L (21-32); CHLORIDE 110 MMOL/L (98-107); CREATININE SERUM 0.67 MG/DL (0.60-1.30); GFR ESTIMATED > 60; GLUCOSE 95 MG/DL (70-105); POTASSIUM 4.5 MMOL/L (3.6-5.0); SODIUM 134 MMOL/L (135-145)
[2018-05-06 08:00] VITALS: BP 162/74
[2018-05-06] MEDS: METOCLOPRAMIDE 5 MG (REGLAN) TAB PO SCH ×3 (08:29→20:20)
[2018-05-06] MEDS: lisINopril 40 MG (PRINIVIL) TABLET PO SCH (08:29)
[2018-05-06] MEDS ORDERED: NON-FORMULARY MEDICATION 1 EA EA (Benazepril HCl 40 MG) PO SCH (09:00)
--- NOTE | 2018-05-06 09:12 | Physical Therapy Daily Note ---
PT Daily Note-Current Subjective Pt in bed and agrees to PT. Pt reports she is tired. Pain Numeric Pain Scale: 0-No Pain Location: No Pain Reported Mental Status Patient Orientation: Person, Place, Situation, Normal For Age Attachments: IV Transfers Therapy Code Descriptions/Definitions Functional [place] Measure: 0=Not Assessed/NA 4=Minimal Assistance 1=Total Assistance 5=Supervision or Setup 2=Maximal Assistance 6=Modified [place] 3=Moderate Assistance 7=Complete [place] Therapy Quality Codes: 6 Independent with activity with or without an assistive device 5 Patient requires set up or clean up by helper. Patient completes activity by themselves 4 Supervision or touching assist (CGA). [place] provide cues , steadying assist 3 The helper provides less than half the effort to complete the activity 2 The helper provides more than half the effort to complete the activity 1 Dependent. The helper does all the effort to complete an activity 7 Patient refused to complete or attempt activity 9 The patient did not perform the activity before the current illness or injury 88 Not attempted due to Medical conditions or safety concerns Transfers (B, C, W/C) (FIM): 5 Supine to/from Sit: 6 Sit to/from Stand: 5 Weight Bearing Right Lower Extremity: Right Weight Bearing/Tolerated Left Lower Extremity: Left Weight Bearing/Tolerated Gait Training Gait (FIM): 4 Distance (FIM): 3=150 ft Distance: 200' Gait Level of Assist: 4 Gait Persons Needed: 1 Gait Assistive Device: FWW Assessment Current Status: Good Progress Pt able to perform bed mobility mod indep. Pt is able to sit<>stand from EOB to FWW SBA. Pt amb 200' with FWW and CGA for safety. Pt returned to room and is up in recliner with all needs met. Pt reported that walking wore her out. PT Short Term Goals Short Term Goals Time Frame: May 12, 2018 Transfers (B,C,W/C) (FIM): 5 Gait (FIM): 2 Distance (FIM): 8=866-54 ft Gait Distance Comment: 50' Gait Level of Assist: 5 Gait Assistive Device: FWW PT Plan Problem List Problem List: Activity Tolerance, Functional Strength, Safety, Gait, Transfer, Bed Mobility Treatment/Plan Treatment Plan: Continue Plan of Care Treatment Plan: Bed Mobility, Education, Functional Activity [place], Functional Strength, Gait, Safety, Therapeutic Exercise, Transfers Treatment Duration: May 12, 2018 Frequency: 6 times per week Estimated Hrs Per Day: .25 hour per day Patient and/or Family Agrees t: Yes Time/GCodes Time In: 844 Time Out: 854 Total Billed Treatment Time: 10 Total Billed Treatment 1 visit FA 10 min NIKHIL TORRES PT May 06, 2018 09:12
[2018-05-06] MEDS: RT-ALBUTEROL/IPRATROPIUM 3 ML (DUONEB) VIAL INH SCH ×3 (10:23→20:57)
--- NOTE | 2018-05-06 10:43 | Progress Note-Hospitalist ---
Subjective HPI/CC On Admission Date Seen by Provider: May 06, 2018 Time Seen by Provider: 10:39 Pt is an 82yoCF who was direct admitted from Dr Alicea's clinic from weakness , influenza, and anemia. She states that she hasn't been feeling well since this fall and has undergone work up for her anemia. She had an EGD and colonoscopy on 03/14 that revealed h pylori. She underwent treatment with triple therapy. Over the past week she started to feel ill again with nausea and had poor oral intake. She was very weak as well. She was seen in the Er on and found to be positive for Flu A. She was started on Tamiflu but she felt that made her sick as well. Despite that she complied with therapy. She was seen for follow up by her PCP Dr Alicea yesterday and was found to be anemic still at 7.5. She was then admitted for further management. Today she states she is feeling a little better but still nausea and somewhat weak. She was able to work with PT this morning though. Subjective/Events-last exam Pt reports feeling better but still weak. Objective Exam Vital Signs Vital Signs Date Time Temp Pulse Resp B/P (MAP) Pulse Ox O2 Delivery O2 Flow Rate FiO2 05/06/18 10:23 95 Room Air 05/06/18 08:00 98.5 71 20 162/74 (103) 05/04/18 22:39 21 Capillary Refill : General Appearance: No Apparent Distress, WD/WN HEENT: No Scleral Icterus (L), No Scleral Icterus (R) Respiratory: Lungs Clear, No Accessory Muscle Use, No Respiratory Distress Cardiovascular: Regular Rate, Rhythm, No JVD, No Murmur Gastrointestinal: Normal Bowel Sounds, Non Tender, Soft Neurologic/Psychiatric: Alert, Oriented x3, Normal Mood/Affect Skin: Normal Color, Warm/Dry Lymphatic: No Adenopathy Results/Procedures Lab Laboratory Tests 05/06/18 05:54 Patient resulted labs reviewed. Assessment/Plan Assessment and Plan Assess & Plan/Chief Complaint Flu Anemia Diagnosis/Problems Diagnosis/Problems (1) Influenza A Assessment & Plan: Has completed tamiflu PT/OT consulted, appreciate recs Worked with therapy but very worn out afterwards Consider IRU (2) Microcytic anemia Status: Chronic Assessment & Plan: Had EGD and Colonoscopy on 03/14/18 Persistently anemic retic count normal, iron low Venofer ordered Hem and Surgery consulted, appreciate recs (3) H pylori ulcer Assessment & Plan: Per patient has completed triple therapy Surgery consulted, appreciate recs (4) Essential (primary) hypertension Assessment & Plan: Cont home meds Clinical Quality Measures DVT/VTE Risk/Contraindication: Risk Factor Score Per Nursin RFS Level Per Nursing on Admit: 3=High CAROLINE BELLO MD May 06, 2018 10:43
--- NOTE | 2018-05-06 11:59 | Occupational Therapy Eval ---
OT Evaluation-General/PLF Medical Diagnosis Admission Date May 04, 2018 at 18:10 Medical Diagnosis: Influenza A Onset Date: May 04, 2018 Therapy Diagnosis Therapy Diagnosis: decreased self care skills Height/Weight Height (Feet): 5 Height (Inches): 2.00 Weight (Pounds): 179 Weight (Ounces): 0.0 Precautions Precautions/Isolations: Standard Precautions Safety Interventions: None Referral Physician: Dr. Monroe Medical History Current History pt admitted with influenza A Social History Home: Single Level Current Living Status: Alone Entry Into Home: Ramp, Stairs With Railing Steps Into Home: 2 ADL-Prior Level of Function Therapy Code Descriptions/Definitions Functional [place] Measure: 0=Not Assessed/NA 4=Minimal Assistance 1=Total Assistance 5=Supervision or Setup 2=Maximal Assistance 6=Modified [place] 3=Moderate Assistance 7=Complete [place] Therapy Quality Codes: 6 Independent with activity with or without an assistive device 5 Patient requires set up or clean up by helper. Patient completes activity by themselves 4 Supervision or touching assist (CGA). [place] provide cues , steadying assist 3 The helper provides less than half the effort to complete the activity 2 The helper provides more than half the effort to complete the activity 1 Dependent. The helper does all the effort to complete an activity 7 Patient refused to complete or attempt activity 9 The patient did not perform the activity before the current illness or injury 88 Not attempted due to Medical conditions or safety concerns Functional Abilities and Goals: Independent: Patient completed the activities by him/herself, with or without an assistive device, with no assistance from a helper. Needed Some Help: Patient needed partial assistance from another person to complete activities. Dependent: A helper completed the activities for the patient. Unknown: Not Applicable: ADL PLOF Comments Pt reports being independent with basic self care skills. Uses walker for mobility, Children assist with cooking and cleaning. Drive Self: Yes OT Current Status Subjective Pt in bed, agrees to therapy. Pt has no reports of pain. Mental Status/Objective Patient Orientation: Person, Place, Situation Attachments: IV Current Upper Extremity ROM Grossly WFL Upper Extremity Coordination Intact Upper Extremity Strength Grossly4/5 ADL-Treatment ADL-Current Pt supine to sit with supervision. Assist to don socks. Sit to stand with supervision. Gait to restroom with FWW. Pt transferred to toilet and completed toileting with SBA. Stood at sink to wash hands without assist. Combed hair with set up. Pt returned to bed, completed sit to supine with SBA. Pt resting in bed with needs met after session. Therapy Code Descriptions/Definitions Functional [place] Measure: 0=Not Assessed/NA 4=Minimal Assistance 1=Total Assistance 5=Supervision or Setup 2=Maximal Assistance 6=Modified [place] 3=Moderate Assistance 7=Complete [place] Therapy Quality Codes: 6 Independent with activity with or without an assistive device 5 Patient requires set up or clean up by helper. Patient completes activity by themselves 4 Supervision or touching assist (CGA). [place] provide cues , steadying assist 3 The helper provides less than half the effort to complete the activity 2 The helper provides more than half the effort to complete the activity 1 Dependent. The helper does all the effort to complete an activity 7 Patient refused to complete or attempt activity 9 The patient did not perform the activity before the current illness or injury 88 Not attempted due to Medical conditions or safety concerns Grooming (FIM): 5 Toileting (FIM): 5 Toilet/Commode Transfer (FIM): 5 Education OT Patient Education: Rehab process Teaching Recipient: Patient Teaching Methods: Discussion Response to Teaching: Verbalize Understanding OT Short Term Goals Short Term Goals Transfers (B,C,W/C) (FIM): 5 1=Demonstrate adherence to instructed precautions during ADL tasks. 2=Patient will verbalize/demonstrate understanding of assistive devices/ modifications for ADL. 3=Patient will improve strength/tolerance for activity to enable patient to perform ADL's. OT Long-Term Goals Long-Term Goals Time Frame: May 13, 2018 Eating (FIM): 6 Grooming(FIM): 6 Bathing(FIM): 5 Upper Body Dressing(FIM): 6 Lower Body Dressing(FIM): 6 Toileting(FIM): 6 Toilet/Commode Transfer(FIM): 6 Additional Goals: 2-Verbalize Understanding, 3-ImproveStrength/[place] 1=Demonstrate adherence to instructed precautions during ADL tasks. 2=Patient will verbalize/demonstrate understanding of assistive devices/ modifications for ADL. 3=Patient will improve strength/tolerance for activity to enable patient to perform ADL's. OT Education/Plan Problem List/Assessment Assessment: Decreased Activ Tolerance, Decreased UE Strength, Dependent Transfers, Impaired Self-Care Skills Pt to benefit from skilled OT intervention for ADL training, transfers, and strengthening to increase level of independence and allow safe discharge. Discharge Recommendations Plan/Recommendations: Continue POC Treatment Plan/Plan of Care Treatment,Training & Education: Yes Patient would benefit from OT for education, treatment and training to promote independence in ADL's, mobility, safety and/or upper extremity function for ADL' s. Plan of Care: ADL Retraining, Functional Mobility, UE Funct Exercise/Act Treatment Duration: May 13, 2018 Frequency: 5 times per week Estimated Hrs Per Day: .25 hour per day Rehab Potential: Fair Time/GCodes Start Time: 10:48 Stop Time: 11:03 Total Time Billed (hr/min): 15 Billed Treatment Time 1, visit, EVL(15minutes) HEATHER ZARAGOZA OT May 06, 2018 11:59
[2018-05-06 12:00] VITALS: BP 175/74
[2018-05-06] MEDS: NS IV 1000 ML 1,000 ML IV SCH (12:32)
--- NOTE | 2018-05-06 13:23 | NUR ---
Inpatient rehab evaluation Received order to evaluate patient for admission to the inpatient rehab unit. Talked with patient about inpatient rehab and she is agreeable to admit for intensive therapies and continued medical management before returning home alone. Discussed with Dr. Monroe. Dr. Sheppard is planning on taking patient for EGD on Wednesday. Will reevaluate patient on Wednesday for possible admission on 05/10/18. Thank you for the referral.
--- NOTE | 2018-05-06 13:25 | Progress Note (SOAP) ---
Subjective Date Seen by a Provider: May 06, 2018 Time Seen by a Provider: 13:22 Subjective/Events-last exam cough and fatigue following influenza. Anemia with a history of previous gastric ulcers Review of Systems General: Fatigue, Malaise HEENT: No Head Aches, No Eye Pain, No Ear Pain, No Dysphasia, No Sinus Congestion, No Post Nasal Drip, No Sore Throat Pulmonary: Cough Cardiovascular: No: Chest Pain, Palpitations, Orthopnea, Paroxysmal Noc. Dyspnea, Edema, Lt Headedness Gastrointestinal: Melena Genitourinary: No Dysuria, No Frequency, No Incontinence, No Hematuria, No Retention Musculoskeletal: back pain Neurological: No: Weakness, Numbness, Incoordination, Change in speech, Confusion, Seizures, Other Objective Exam Vital Signs Date Time Temp Pulse Resp B/P (MAP) Pulse Ox O2 Delivery O2 Flow Rate FiO2 05/06/18 10:23 95 Room Air 05/06/18 08:00 98.5 71 20 162/74 (103) 97 Room Air 05/06/18 03:59 96.6 67 18 163/69 (100) 94 Room Air 05/05/18 23:05 98.4 71 18 142/66 (91) 94 Room Air 05/05/18 20:00 Room Air 05/05/18 19:56 95 Room Air 05/05/18 19:54 97.3 05/05/18 19:04 100.0 79 18 164/71 (102) 96 Room Air 05/05/18 16:16 98.9 83 138/62 Room Air 05/05/18 16:00 98.9 86 20 138/62 (87) 96 OxyMask 05/05/18 14:10 98.9 85 20 132/61 96 Room Air 05/05/18 13:58 98.9 83 20 141/60 96 05/05/18 13:41 94 Room Air I & O 05/06/18 07:00 Intake Total 3220 ml Output Total 1250 ml Balance 1970 ml Capillary Refill : General Appearance: Mild Distress HEENT: Pale Conjunctivae (R) Respiratory: Decreased Breath Sounds Cardiovascular: Tachycardia Gastrointestinal: non tender, soft Neurologic/Psychiatric: Oriented x3 Skin: Warm/Dry Results Lab Laboratory Tests 05/06/18 05:54: White Blood Count 5.9, Red Blood Count 4.12L, Hemoglobin 7.5L, Hematocrit 26L, Mean Corpuscular Volume 61L, Mean Corpuscular Hemoglobin 18L, Mean Corpuscular Hemoglobin Concent 30L, Red Cell Distribution Width 22.8H, Platelet Count 169, Mean Platelet Volume 9.9, Neutrophils (%) (Auto) 72, Lymphocytes (%) (Auto) 16, Monocytes (%) (Auto) 11, Eosinophils (%) (Auto) 1, Basophils (%) (Auto) 0, Neutrophils # (Auto) 3.8, Lymphocytes # (Auto) 0.9L, Monocytes # (Auto) 0.6, Eosinophils # (Auto) 0.0, Basophils # (Auto) 0.0, Sodium Level 134L, Potassium Level 4.5, Chloride Level 110H, Carbon Dioxide Level 17L, Anion Gap 7, Blood Urea Nitrogen 7, Creatinine 0.67, Estimat Glomerular Filtration Rate > 60, BUN/ Creatinine Ratio 10, Glucose Level 95, Calcium Level 7.7L 05/06/18 12:22: Lab Scanned Report Transfusion Reaction Form Assessment/Plan Assessment/Plan Assess & Plan/Chief Complaint lady with cough and recent onset of influenza. Previous gastric ulcers. Anemia possibly due to chronic blood loss. Reasonable to perform a follow-up endoscopy. Scheduled for Wednesday the . Final Diagnosis anemia due to chronic blood loss. Clinical Quality Measures DVT/VTE Risk/Contraindication: Risk Factor Score Per Nursin RFS Level Per Nursing on Admit: 3=High THOMAS ESQUIVEL MD May 06, 2018 13:25
--- NOTE | 2018-05-06 15:13 | Progress Note-Standard ---
Standard Progress Note Progress Notes/Assess & Plan Date Seen by a Provider: May 06, 2018 Time Seen by a Provider: 15:11 Progress/Assessment & Plan 82-year-old female admitted to the hospital with increasing fatigue, cough and diagnosed with influenza A. Noted to have significant microcytic and hypoproliferative anemia. Iron studies consistent with significant iron deficiency. Patient received 1 unit of packed red blood cell for symptomatic anemia. She is unable to tolerate oral iron because of abdominal pain. Agree with parenteral iron therapy. Agree with the repeating EGD to document resolution of H. pylori infection and gastric ulcers. Continue rest of the treatment as you're doing. Will follow patient with you. ERUM SAMSON May 06, 2018 15:13
[2018-05-06 15:32] VITALS: BP 179/72
[2018-05-06 19:56] VITALS: BP 171/73
[2018-05-06] MEDS: LATANOPROST 0.005% (XALATAN) OPHTH SOLN 2.5 ML OU SCH (20:20)
[2018-05-06] MEDS: MELATONIN 3 MG TABLET PO PRN (20:20)
[2018-05-06] MEDS: PANTOPRAZOLE 40 MG (PROTONIX) TAB PO SCH (20:20)
[2018-05-06 23:24] VITALS: BP 155/62
[2018-05-07] MEDS: NS IV 1000 ML 1,000 ML IV SCH (01:50)
[2018-05-07 03:30] VITALS: BP 166/72
--- NOTE | 2018-05-07 07:00 | NUR ---
THIS RN CONTACTED DR. BELLO IN REGARDS TO THE PT COMPLAINING OF SHORTNESS OF BREATH. 2 L OXYGEN APPLIED VIA NC AND RT NOTIFIED OF SHORTNESS OF BREATH. ORDERS RECEIVED FOR CHEST X-RAY 1 VIEW, CONSULT DR. WANG, CBC WITH AUTO DIFF., BMP, AND BNP. ORDERS READ BACK AND VERIFIED.
[2018-05-07] MEDS: RT-ALBUTEROL/IPRATROPIUM 3 ML (DUONEB) VIAL INH SCH (07:06)
[2018-05-07 08:00] VITALS: BP 184/74
[2018-05-07 08:03] LABS: BASOPHILS % (AUTO) 0 % (0-10); EOSINOPHILS % (AUTO) 0 % (0-10); HEMATOCRIT 26 % (35-52); HEMOGLOBIN 7.7 G/DL (11.5-16.0); LYMPHOCYTES # (AUTO) 1.2 X 10^3 (1.0-4.0); LYMPHOCYTES % (AUTO) 14 % (12-44); MEAN CORPUSCULAR HEMOGLOBIN 18 PG (25-34); MEAN CORPUSCULAR HGB CONC 30 G/DL (32-36); MEAN CORPUSCULAR VOLUME 61 FL (80-99); MEAN PLATELET VOLUME 9.1 FL (7.4-10.4); MONOCYTES # (AUTO) 0.7 X 10^3 (0.0-1.0); MONOCYTES % (AUTO) 8 % (0-12); NEUTROPHILS # (AUTO) 6.2 X 10^3 (1.8-7.8); NEUTROPHILS % (AUTO) 77 % (42-75); PLATELET COUNT 294 10^3/uL (130-400); RED CELL DISTRIBUTION WIDTH 23.8 % (10.0-14.5); WHITE BLOOD COUNT 8.1 10^3/uL (4.3-11.0)
--- NOTE | 2018-05-07 08:09 | Pulmonary Consultation ---
History of Present Illness History of Present Illness Date of Consultation 05/07/18 08:03 Time Seen by Provider: 08:03 Date of Admission History of Present Illness 82yo who was directly admitted from Dr. Alicea's office on 05/05 secondary to weakness, influenza and anemia. Pt has been treated with tamiflu as an out patient. She was found to be anemic with hb of 7.5. She did have an EGD 03/14 and was found to have H pylori. I am being consulted for pulmonary management. Pt started complaining of worsening SOB last night and is also now requiring oxygen. AM labs are currently pending. Allergies and Home Medications Allergies Coded Allergies: No Known Drug Allergies (Unverified , 03/08/18) Home Medications Benazepril HCl 40 Mg Tab, 40 MG PO DAILY, (Reported) Cyanocobalamin 1,000 Mcg/Ml Inj, 1,000 MCG INJ MONTHLY, (Reported) Latanoprost 2.5 Ml Drops, 1 DROP OU HS, (Reported) Metoclopramide HCl 5 Mg Tablet, 5 MG PO TID, (Reported) Metoprolol Succinate 25 Mg Tab.er.24h, 25 MG PO HS, (Reported) Ondansetron 4 Mg Tab.rapdis, 4 MG PO Q6H PRN for NAUSEA/VOMITING Prescribed by: SHASTA SINGH on 05/01/18146 Oseltamivir Phosphate 75 Mg Capsule, 75 MG PO BID Prescribed by: SHASTA SINGH on 05/01/18146 Pantoprazole Sodium 40 Mg Tablet.dr, 40 MG PO HS, (Reported) Past Brztwns-Qkpktd-Osqmuh Hx Past Med/Social Hx: Reviewed Nursing Past Med/Soc Hx Patient Social History Alcohol Use: Denies Use Recreational Drug Use: No 2nd Hand Smoke Exposure: No Recent Hopitalizations: No Immunizations Up To Date Tetanus Booster (TDap): More than 5yrs PED Vaccines UTD: Yes Date of Pneumonia Vaccine: Aug 20, 2012 Date of Influenza Vaccine: Dec 27, 2017 Seasonal Allergies Seasonal Allergies: No Past Medical History Surgeries: Yes (thyroid,cataracts) Adenoidectomy, Appendectomy, Eye Surgery, Gallbladder, Hysterectomy, Thyroidectomy, Tonsillectomy Respiratory: No Cardiac: Yes (IRREGULAR HEART BEAT- irregular ekg) High Cholesterol, Hypertension Neurological: No Reproductive Disorders: No 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 0.0oz. 81.930960bk; 32.7 BMI Method:Stated Exam Exam Vital Signs Date Time Temp Pulse Resp B/P (MAP) Pulse Ox O2 Delivery O2 Flow Rate FiO2 05/07/18 07:06 93 Room Air 2.00 05/07/18 03:30 96.8 78 20 166/72 (103) 94 Nasal Cannula 1.00 05/07/18 01:21 92 Room Air 05/06/18 23:24 97.2 71 20 155/62 (93) 93 Room Air 05/06/18 20:58 90 Room Air 05/06/18 20:00 Room Air 05/06/18 19:56 97.9 89 49 171/73 (105) 95 Room Air 05/06/18 16:25 90 Room Air 05/06/18 15:32 98.2 77 18 179/72 (107) 93 Room Air 05/06/18 12:00 98.7 74 22 175/74 (107) 95 Room Air 05/06/18 10:23 95 Room Air I & O 05/07/18 07:00 Intake Total 1100 ml Output Total 300 ml Balance 800 ml Height & Weight Height: 5'2.00" Weight: 179lbs. 0.0oz. 81.453983wv; 32.7 BMI Method:Stated General Appearance: No Apparent Distress, WD/WN HEENT: No Scleral Icterus (L), No Scleral Icterus (R) Respiratory: Lungs Clear, No Accessory Muscle Use, No Respiratory Distress Cardiovascular: Regular Rate, Rhythm, No JVD, No Murmur Gastrointestinal: non tender, soft Extremity: No Calf Tenderness, No Pedal Edema Neurologic/Psychiatric: Alert, Oriented x3, Normal Mood/Affect Skin: Normal Color, Warm/Dry Lymphatic: No Adenopathy Results Lab Laboratory Tests 05/06/18 05:54 Assessment/Plan Assessment/Plan acute worsening SOB with hypoxia -Check ABG -labs including BNP is pending Influenza A -S/p Tamiflu Metabolic acidosis -Check ABG -Check LA -Monitor Microcytic anemia s/p EGD/Colonoscopy 03/14/18 -Venofer H pylori ulcer s/p treatment LEA WANG DO May 07, 2018 08:09
[2018-05-07 08:23] LABS: BUN/CREATININE RATIO 8; CALCIUM 8.6 MG/DL (8.5-10.1); CARBON DIOXIDE 21 MMOL/L (21-32); CHLORIDE 106 MMOL/L (98-107); CREATININE SERUM 0.65 MG/DL (0.60-1.30); GFR ESTIMATED > 60; GLUCOSE 113 MG/DL (70-105); POTASSIUM 2.8 MMOL/L (3.6-5.0); SODIUM 135 MMOL/L (135-145)
--- NOTE | 2018-05-07 08:56 | Diagnostic Imaging Report ---
INDICATION: Shortness of air. COMPARISON: 05/01/2018 FINDINGS: Single frontal radiata view chest was obtained and demonstrates moderate cardio megaly. There has been interval development of mild ulnar vascular congestion as well as diffuse prominence of the interstitium. Lizy B lines are noted. Lungs show few scattered nodular opacities within the lower lung hernandez, new compared To prior exam. There may be small left effusion as well. No pneumothorax is seen. Bony structures show no gross acute abnormalities. IMPRESSION: 1. Interval development of pulmonary vascular congestion and interstitial pulmonary edema. 2. Nodular opacities within the lower lung hernandez may be on the basis of developing alveolar edema. Continued followup is recommended. 3. Probable small left basilar effusion. Dictated by: Dictated on workstation # [id number]
[2018-05-07 09:04] LABS: ABG BASE EXCESS -1.2 MMOL/L (-2.5-2.5); ABG OXYGEN SATURATION 98 % (94-100); ABG PCO2 29 MMHG (35-45); ABG PH 7.48 (7.37-7.43); ABG PO2 83 MMHG (79-93); ABG TCO2 22.8 MMOL/L (21.0-31.0)
[2018-05-07 09:07] LABS: ALLENS TEST POSITIVE; INSPIRED O2 2 L; PATIENT TEMP 97.6; VENTILATOR NO
[2018-05-07] MEDS: lisINopril 40 MG (PRINIVIL) TABLET PO SCH (09:41)
[2018-05-07] MEDS: METOCLOPRAMIDE 5 MG (REGLAN) TAB PO SCH ×3 (09:41→20:49)
[2018-05-07] MEDS ORDERED: POTASSIUM CL 10MEQ/50ML IVPB 50 ML IV SCH (10:15)
[2018-05-07 10:21] LABS: MAGNESIUM 1.6 MG/DL (1.8-2.4); PHOSPHORUS 1.9 MG/DL (2.3-4.7)
[2018-05-07] MEDS ORDERED: KCL 10 MEQ TAB (MICRO K) PO NR (10:35)
[2018-05-07] MEDS ORDERED: FUROSEMIDE 40 MG/4 ML INJ (LASIX) IVP NR (10:35)
[2018-05-07] MEDS ORDERED: POTASSIUM PHOSPHATE INJ 30 MM in NS (IVPB) 250 ML IV NR (10:45)
[2018-05-07] MEDS ORDERED: NITROGLYCERIN 2% OINT 1 GM UNIT DOSE PACKET TOP PRN (11:15)
--- NOTE | 2018-05-07 11:15 | Progress Note-Hospitalist ---
Subjective HPI/CC On Admission Date Seen by Provider: May 07, 2018 Time Seen by Provider: 11:09 Pt is an 82yoCF who was direct admitted from Dr Alicea's clinic from weakness , influenza, and anemia. She states that she hasn't been feeling well since this fall and has undergone work up for her anemia. She had an EGD and colonoscopy on 03/14 that revealed h pylori. She underwent treatment with triple therapy. Over the past week she started to feel ill again with nausea and had poor oral intake. She was very weak as well. She was seen in the Er on and found to be positive for Flu A. She was started on Tamiflu but she felt that made her sick as well. Despite that she complied with therapy. She was seen for follow up by her PCP Dr Alicea yesterday and was found to be anemic still at 7.5. She was then admitted for further management. Today she states she is feeling a little better but still nausea and somewhat weak. She was able to work with PT this morning. Subjective/Events-last exam Pt reports being more short of breath overnight. Very anxious. Requesting medication for anxiety. Family at bedside. All questions answered. Focused Exam Lactate Level 05/07/18 09:44: Lactic Acid Level 1.09 Lactic Acid Level Laboratory Tests Test 05/07/18 09:44 Lactic Acid Level 1.09 MMOL/L (0.50-2.00) Objective Exam Vital Signs Vital Signs Date Time Temp Pulse Resp B/P (MAP) Pulse Ox O2 Delivery O2 Flow Rate FiO2 05/07/18 08:00 97.2 89 18 184/74 (110) 96 Nasal Cannula 2.00 05/04/18 22:39 21 Capillary Refill : General Appearance: No Apparent Distress, WD/WN, Anxious HEENT: No Scleral Icterus (L), No Scleral Icterus (R) Respiratory: Crackles (in bases) Cardiovascular: Regular Rate, Rhythm, No JVD, No Murmur Gastrointestinal: Normal Bowel Sounds, Non Tender, Soft Extremity: No Calf Tenderness, No Pedal Edema Neurologic/Psychiatric: Alert, Oriented x3 Results/Procedures Lab Laboratory Tests 05/07/18 07:55 Patient resulted labs reviewed. Imaging: Reviewed Imaging Report Assessment/Plan Assessment and Plan Assess & Plan/Chief Complaint Flu Anemia Diagnosis/Problems Diagnosis/Problems (1) Acute respiratory distress Status: Acute Assessment & Plan: CXR reveals pulmonary congestion Lasix ordered concomitant potassium ordered for hypokalemia Pulm consulted, appreciate recs MAT protocol Solu-medrol added (2) Influenza A Assessment & Plan: Has completed tamiflu PT/OT consulted, appreciate recs Worked with therapy but very worn out afterwards Consider IRU (3) Microcytic anemia Status: Chronic Assessment & Plan: Had EGD and Colonoscopy on 03/14/18 Persistently anemic retic count normal, iron low Venofer due 05/08 Hem and Surgery consulted, appreciate recs EGD planned for Wednesday (4) H pylori ulcer Assessment & Plan: Per patient has completed triple therapy Surgery consulted, appreciate recs (5) Essential (primary) hypertension Assessment & Plan: Cont home meds Clinical Quality Measures DVT/VTE Risk/Contraindication: Risk Factor Score Per Nursin RFS Level Per Nursing on Admit: 3=High CAROLINE BELLO MD May 07, 2018 11:15
[2018-05-07] MEDS: MAGNESIUM 1 GM/100 ML IVPB 100 ML IV SCH ×2 (11:27→12:38)
[2018-05-07] MEDS: methylPREDNISolone 40 MG/ML (Solu-MEDROL) VIAL IV SCH ×2 (11:27→17:08)
[2018-05-07] MEDS: morphine INJ 4 MG/ML 1 ML (VIAL/SYRINGE) IVP PRN ×2 (11:28→22:00)
[2018-05-07] MEDS ORDERED: RT-ALBUTEROL/IPRATROPIUM 3 ML (DUONEB) VIAL INH PRN (11:30)
[2018-05-07 11:44] VITALS: BP 134/61
--- NOTE | 2018-05-07 11:47 | Physical Therapy Daily Note ---
PT Daily Note-Current Subjective Pt denies pain. Pt says "I am running to the bathroom all the time, they gave me lasix. I can't walk." Pt agrees to ther ex. Transfers Therapy Code Descriptions/Definitions Functional [place] Measure: 0=Not Assessed/NA 4=Minimal Assistance 1=Total Assistance 5=Supervision or Setup 2=Maximal Assistance 6=Modified [place] 3=Moderate Assistance 7=Complete [place] Therapy Quality Codes: 6 Independent with activity with or without an assistive device 5 Patient requires set up or clean up by helper. Patient completes activity by themselves 4 Supervision or touching assist (CGA). Melissa provide cues , steadying assist 3 The helper provides less than half the effort to complete the activity 2 The helper provides more than half the effort to complete the activity 1 Dependent. The helper does all the effort to complete an activity 7 Patient refused to complete or attempt activity 9 The patient did not perform the activity before the current illness or injury 88 Not attempted due to Medical conditions or safety concerns Weight Bearing Right Lower Extremity: Right Weight Bearing/Tolerated Left Lower Extremity: Left Weight Bearing/Tolerated Exercises Seated Therapy Exercises: Ankle pumps, Long arc quads, Hip flexion, Hip abd/add Seated Reps: 20 Assessment Current Status: Good Progress Pt ninfa well. Pt in care of family, all needs met. Call light in reach. PT Short Term Goals Short Term Goals Time Frame: May 12, 2018 Transfers (B,C,W/C) (FIM): 5 Gait (FIM): 2 Distance (FIM): 2=999-78 ft Gait Distance Comment: 50' Gait Level of Assist: 5 Gait Assistive Device: FWW PT Plan Treatment/Plan Treatment Plan: Continue Plan of Care Treatment Plan: Bed Mobility, Education, Functional Activity [place], Functional Strength, Gait, Safety, Therapeutic Exercise, Transfers Treatment Duration: May 12, 2018 Frequency: 6 times per week Estimated Hrs Per Day: .25 hour per day Patient and/or Family Agrees t: Yes Time/GCodes Time In: 1130 Time Out: 1140 Total Billed Treatment Time: 10 Total Billed Treatment 1, ther ex 10' BRADLEY ALVAREZ CPTA May 07, 2018 11:47
[2018-05-07] MEDS ORDERED: RT-ALBUTEROL/IPRATROPIUM 3 ML (DUONEB) VIAL INH SCH (12:00)
--- NOTE | 2018-05-07 12:05 | Progress Note-Standard ---
Standard Progress Note Progress Notes/Assess & Plan Date Seen by a Provider: May 07, 2018 Time Seen by a Provider: 12:01 Progress/Assessment & Plan 82-year-old female admitted to the hospital with increasing fatigue, cough and diagnosed with influenza A. Noted to have significant microcytic and hypoproliferative anemia. Iron studies consistent with significant iron deficiency. Patient received 1 unit of packed red blood cell for symptomatic anemia. She is unable to tolerate oral iron because of abdominal pain. Started on parenteral iron therapy with Venofer. Continue with the full course of Venofer. History of H. pylori infection and gastric ulcer in late 2017, status post triple therapy. Agree with the repeating EGD to document resolution of H. pylori infection and gastric ulcers. Patient developed increased shortness of breath and hypoxia early a.m with chest x-ray suggestive of food overload versus infiltrates. Pulmonary consult and management noted. Hemoglobin stable or slightly better. Continue to monitor serially. Will follow patient with you. Focused Exam Lactate Level 05/07/18 09:44: Lactic Acid Level 1.09 Lactic Acid Level Laboratory Tests Test 05/07/18 09:44 Lactic Acid Level 1.09 MMOL/L (0.50-2.00) ERUM SAMSON May 07, 2018 12:05
[2018-05-07 14:23] VITALS: BP 134/61
[2018-05-07 16:39] LABS: BUN/CREATININE RATIO 6; CALCIUM 7.8 MG/DL (8.5-10.1); CARBON DIOXIDE 20 MMOL/L (21-32); CHLORIDE 102 MMOL/L (98-107); CREATININE SERUM 0.79 MG/DL (0.60-1.30); GFR ESTIMATED > 60; GLUCOSE 227 MG/DL (70-105); POTASSIUM 3.2 MMOL/L (3.6-5.0); SODIUM 135 MMOL/L (135-145)
[2018-05-07 16:45] VITALS: BP 134/68
[2018-05-07 17:15] LABS: BASOPHILS % (AUTO) 0 % (0-10); EOSINOPHILS % (AUTO) 0 % (0-10); HEMATOCRIT 28 % (35-52); HEMOGLOBIN 8.6 G/DL (11.5-16.0); LYMPHOCYTES # (AUTO) 0.3 X 10^3 (1.0-4.0); LYMPHOCYTES % (AUTO) 3 % (12-44); MEAN CORPUSCULAR HEMOGLOBIN 18 PG (25-34); MEAN CORPUSCULAR HGB CONC 30 G/DL (32-36); MEAN CORPUSCULAR VOLUME 60 FL (80-99); MEAN PLATELET VOLUME 9.3 FL (7.4-10.4); MONOCYTES # (AUTO) 0.1 X 10^3 (0.0-1.0); MONOCYTES % (AUTO) 1 % (0-12); NEUTROPHILS # (AUTO) 8.3 X 10^3 (1.8-7.8); NEUTROPHILS % (AUTO) 96 % (42-75); PLATELET COUNT 290 10^3/uL (130-400); RED CELL DISTRIBUTION WIDTH 24.7 % (10.0-14.5); WHITE BLOOD COUNT 8.6 10^3/uL (4.3-11.0)
[2018-05-07 18:22] LABS: ANISOCYTOSIS MARKED; BAND NEUTROPHILS 1 %; BASOPHILS % (MANUAL) 0 %; EOSINOPHILS % (MANUAL) 0 %; HYPOCHROMASIA MODERATE; LYMPHOCYTES % (MANUAL) 1 %; MICROCYTOSIS MODERATE; MONOCYTES % (MANUAL) 0 %; NEUTROPHILS % (MANUAL) 97 %; POIKILOCYTOSIS MODERATE; REACTIVE LYMPHOCYTES 1 %
[2018-05-07 18:23] LABS: ACANTHOCYTES MODERATE; ELLIPT/OVALOCYTES MODERATE; TARGET CELLS RARE; TOXIC GRANULATION/VACUOLAZATIO 1+
[2018-05-07 20:30] VITALS: BP 156/72
[2018-05-07] MEDS: PANTOPRAZOLE 40 MG (PROTONIX) TAB PO SCH (20:50)
[2018-05-07] MEDS: LATANOPROST 0.005% (XALATAN) OPHTH SOLN 2.5 ML OU SCH (20:52)
[2018-05-08] MEDS: methylPREDNISolone 40 MG/ML (Solu-MEDROL) VIAL IV SCH ×4 (00:18→17:23)
[2018-05-08] MEDS: RT-ALBUTEROL/IPRATROPIUM 3 ML (DUONEB) VIAL INH SCH ×7 (01:09→23:18)
[2018-05-08 06:06] LABS: BASOPHILS % (AUTO) 0 % (0-10); EOSINOPHILS % (AUTO) 0 % (0-10); HEMATOCRIT 25 % (35-52); HEMOGLOBIN 7.7 G/DL (11.5-16.0); LYMPHOCYTES # (AUTO) 0.5 X 10^3 (1.0-4.0); LYMPHOCYTES % (AUTO) 8 % (12-44); MEAN CORPUSCULAR HEMOGLOBIN 18 PG (25-34); MEAN CORPUSCULAR HGB CONC 31 G/DL (32-36); MEAN CORPUSCULAR VOLUME 60 FL (80-99); MEAN PLATELET VOLUME 9.5 FL (7.4-10.4); MONOCYTES # (AUTO) 0.2 X 10^3 (0.0-1.0); MONOCYTES % (AUTO) 3 % (0-12); NEUTROPHILS # (AUTO) 5.6 X 10^3 (1.8-7.8); NEUTROPHILS % (AUTO) 89 % (42-75); PLATELET COUNT 300 10^3/uL (130-400); WHITE BLOOD COUNT 6.3 10^3/uL (4.3-11.0)
--- NOTE | 2018-05-08 06:39 | Pulmonary Progress Note ---
Subjective Time Seen by a Provider: 06:39 Subjective/Events-last exam Pt feels improved today c/w yesterday. Sepsis Event Evaluation Height, Weight, BMI Height: 5'2.00" Weight: 188lbs. 1.6oz. 85.227416lf; 32.7 BMI Method:Stated Focused Exam Lactate Level 05/07/18 09:44: Lactic Acid Level 1.09 Exam Exam Vital Signs Date Time Temp Pulse Resp B/P (MAP) Pulse Ox O2 Delivery O2 Flow Rate FiO2 05/08/18 02:40 92 Room Air 05/07/18 20:30 98.9 105 20 156/72 (100) 93 Room Air 05/07/18 20:00 Room Air 05/07/18 19:10 93 Room Air 05/07/18 16:45 99.0 94 24 134/68 (90) 95 Room Air 05/07/18 14:23 85 93 21 05/07/18 14:21 93 Room Air 2.00 05/07/18 11:44 97.8 85 18 134/61 (85) 95 Room Air 05/07/18 08:00 95 Nasal Cannula 2.00 05/07/18 08:00 97.2 89 18 184/74 (110) 96 Nasal Cannula 2.00 05/07/18 07:06 93 Room Air 2.00 I & O 05/08/18 07:00 Intake Total 2080 ml Balance 2080 ml Height & Weight Height: 5'2.00" Weight: 188lbs. 1.6oz. 85.881687fp; 32.7 BMI Method:Stated General Appearance: No Apparent Distress, WD/WN, Anxious HEENT: No Scleral Icterus (L), No Scleral Icterus (R) Respiratory: No Accessory Muscle Use, No Respiratory Distress, Crackles (in bases) Cardiovascular: Regular Rate, Rhythm, No JVD, No Murmur Gastrointestinal: non tender, soft Extremity: No Calf Tenderness, No Pedal Edema Neurologic/Psychiatric: Alert, Oriented x3 Results Lab Laboratory Tests 05/07/18 07:55 05/07/18 16:02 05/07/18 16:09 05/08/18 05:25 Assessment/Plan Assessment/Plan acute worsening SOB with hypoxia - pt feels improved c/w yesterday -Continue Solumedrol -S/p lasix 40mg yesterday -labs pending Influenza A -S/p Tamiflu Metabolic acidosis -Monitor Microcytic anemia s/p EGD/Colonoscopy 03/14/18 -Venofer H pylori ulcer s/p treatment LEA WANG DO May 08, 2018 06:39
[2018-05-08 06:42] LABS: BUN/CREATININE RATIO 11; CALCIUM 7.7 MG/DL (8.5-10.1); CARBON DIOXIDE 22 MMOL/L (21-32); CHLORIDE 104 MMOL/L (98-107); CREATININE SERUM 0.65 MG/DL (0.60-1.30); GFR ESTIMATED > 60; GLUCOSE 166 MG/DL (70-105); MAGNESIUM 1.9 MG/DL (1.8-2.4); PHOSPHORUS 2.7 MG/DL (2.3-4.7); POTASSIUM 3.7 MMOL/L (3.6-5.0); SODIUM 134 MMOL/L (135-145)
[2018-05-08 08:00] VITALS: BP 159/71
[2018-05-08] MEDS: METOCLOPRAMIDE 5 MG (REGLAN) TAB PO SCH ×3 (08:48→21:55)
[2018-05-08] MEDS: lisINopril 40 MG (PRINIVIL) TABLET PO SCH (08:48)
[2018-05-08] MEDS: IRON SUCROSE 200 MG/10 ML (VENOFER) VIAL IV SCH (08:48)
--- NOTE | 2018-05-08 09:45 | Progress Note-Hospitalist ---
Subjective HPI/CC On Admission Date Seen by Provider: May 08, 2018 Time Seen by Provider: 09:42 Pt is an 82yoCF who was direct admitted from Dr Alicea's clinic from weakness , influenza, and anemia. She states that she hasn't been feeling well since this fall and has undergone work up for her anemia. She had an EGD and colonoscopy on 03/14 that revealed h pylori. She underwent treatment with triple therapy. Over the past week she started to feel ill again with nausea and had poor oral intake. She was very weak as well. She was seen in the Er on and found to be positive for Flu A. She was started on Tamiflu but she felt that made her sick as well. Despite that she complied with therapy. She was seen for follow up by her PCP Dr Alicea yesterday and was found to be anemic still at 7.5. She was then admitted for further management. Today she states she is feeling a little better but still nausea and somewhat weak. She was able to work with PT this morning. Subjective/Events-last exam Pt reports feeling much better. Breathing improved. Morphine helped her to sleep. Plan for EGD in am. Patient very anxious about BP being in the 150s at times. Focused Exam Lactate Level 05/07/18 09:44: Lactic Acid Level 1.09 Objective Exam Vital Signs Vital Signs Date Time Temp Pulse Resp B/P (MAP) Pulse Ox O2 Delivery O2 Flow Rate FiO2 05/08/18 08:00 95 Nasal Cannula 2.00 05/08/18 08:00 97.4 93 20 159/71 (100) 05/07/18 14:23 21 Capillary Refill : General Appearance: No Apparent Distress, WD/WN, Anxious HEENT: No Scleral Icterus (L), No Scleral Icterus (R) Respiratory: Lungs Clear, No Accessory Muscle Use, No Respiratory Distress, Other (off oxygen) Cardiovascular: Regular Rate, Rhythm, No JVD, No Murmur Gastrointestinal: Normal Bowel Sounds, Non Tender, Soft Extremity: No Calf Tenderness, No Pedal Edema Neurologic/Psychiatric: Alert, Oriented x3 Results/Procedures Lab Laboratory Tests 05/07/18 16:02 05/07/18 16:09 05/08/18 05:25 Patient resulted labs reviewed. Imaging: Reviewed Imaging Report Assessment/Plan Assessment and Plan Assess & Plan/Chief Complaint Flu Anemia Diagnosis/Problems Diagnosis/Problems (1) Acute respiratory distress Status: Acute Assessment & Plan: Improved Pulm consulted, appreciate recs MAT protocol Solu-medrol (2) Influenza A Assessment & Plan: Has completed tamiflu PT/OT consulted, appreciate recs Worked with therapy but very worn out afterwards IRU consulted for eval (3) Microcytic anemia Status: Chronic Assessment & Plan: Had EGD and Colonoscopy on 03/14/18 Persistently anemic retic count normal, iron low Venofer 1/5 given today Heme and Surgery consulted, appreciate recs EGD planned for Wednesday (4) H pylori ulcer Assessment & Plan: Per patient has completed triple therapy Surgery consulted, appreciate recs EGD planned for tomorrow (5) Essential (primary) hypertension Assessment & Plan: Cont home meds BP well controlled for age Nitro paste prn SBP >180 Clinical Quality Measures DVT/VTE Risk/Contraindication: Risk Factor Score Per Nursin RFS Level Per Nursing on Admit: 3=High CAROLINE BELLO MD May 08, 2018 09:45
--- NOTE | 2018-05-08 10:05 | Diagnostic Imaging Report ---
INDICATION: Pulmonary edema FINDINGS: Upright portable chest shows the heart size and vascularity to be upper normal. The lungs are clear. There is no effusion or pneumothorax. The vascular congestion and interstitial edema has resolved since 05/07/2018. IMPRESSION: Improving chest. Dictated by: Dictated on workstation # [id number]
[2018-05-08 16:00] VITALS: BP 144/71
[2018-05-08] MEDS: PANTOPRAZOLE 40 MG (PROTONIX) TAB PO SCH (21:55)
[2018-05-08] MEDS: morphine INJ 4 MG/ML 1 ML (VIAL/SYRINGE) IVP PRN (21:55)
[2018-05-08] MEDS: LATANOPROST 0.005% (XALATAN) OPHTH SOLN 2.5 ML OU SCH (21:56)
[2018-05-09] VITALS: BP 128/55
[2018-05-09] MEDS: RT-ALBUTEROL/IPRATROPIUM 3 ML (DUONEB) VIAL INH SCH ×6 (02:22→21:42)
[2018-05-09] MEDS: methylPREDNISolone 40 MG/ML (Solu-MEDROL) VIAL IV SCH ×2 (05:23)
[2018-05-09 06:52] LABS: BASOPHILS % (AUTO) 0 % (0-10); EOSINOPHILS % (AUTO) 0 % (0-10); HEMATOCRIT 28 % (35-52); HEMOGLOBIN 8.2 G/DL (11.5-16.0); LYMPHOCYTES # (AUTO) 0.7 X 10^3 (1.0-4.0); LYMPHOCYTES % (AUTO) 4 % (12-44); MEAN CORPUSCULAR HEMOGLOBIN 18 PG (25-34); MEAN CORPUSCULAR HGB CONC 30 G/DL (32-36); MEAN CORPUSCULAR VOLUME 61 FL (80-99); MEAN PLATELET VOLUME 10.5 FL (7.4-10.4); MONOCYTES # (AUTO) 0.5 X 10^3 (0.0-1.0); MONOCYTES % (AUTO) 3 % (0-12); NEUTROPHILS # (AUTO) 15.5 X 10^3 (1.8-7.8); NEUTROPHILS % (AUTO) 93 % (42-75); PLATELET COUNT 425 10^3/uL (130-400); RED CELL DISTRIBUTION WIDTH 24.7 % (10.0-14.5); WHITE BLOOD COUNT 16.8 10^3/uL (4.3-11.0)
[2018-05-09 07:18] LABS: BUN/CREATININE RATIO 12; CALCIUM 7.9 MG/DL (8.5-10.1); CARBON DIOXIDE 23 MMOL/L (21-32); CHLORIDE 104 MMOL/L (98-107); CREATININE SERUM 0.73 MG/DL (0.60-1.30); GFR ESTIMATED > 60; GLUCOSE 140 MG/DL (70-105); MAGNESIUM 2.1 MG/DL (1.8-2.4); PHOSPHORUS 2.2 MG/DL (2.3-4.7); POTASSIUM 3.7 MMOL/L (3.6-5.0); SODIUM 135 MMOL/L (135-145)
[2018-05-09 07:37] VITALS: BP 137/67
[2018-05-09 07:42] LABS: ANISOCYTOSIS MARKED; BAND NEUTROPHILS 0 %; BASOPHILS % (MANUAL) 0 %; EOSINOPHILS % (MANUAL) 0 %; HYPOCHROMASIA MODERATE; LYMPHOCYTES % (MANUAL) 4 %; MONOCYTES % (MANUAL) 3 %; NEUTROPHILS % (MANUAL) 93 %; POLYCHROMASIA SLIGHT
[2018-05-09 07:43] LABS: ELLIPT/OVALOCYTES MODERATE; MICROCYTOSIS MODERATE; TARGET CELLS SLIGHT
[2018-05-09] MEDS: lisINopril 40 MG (PRINIVIL) TABLET PO SCH ×2 (08:39→15:17)
[2018-05-09] MEDS: METOCLOPRAMIDE 5 MG (REGLAN) TAB PO SCH ×3 (08:39→21:05)
--- NOTE | 2018-05-09 10:05 | Progress Note-Hospitalist ---
MARKO ANDERS DO 05/09/18 1005: Subjective HPI/CC On Admission Date Seen by Provider: May 09, 2018 Time Seen by Provider: 09:30 Pt is an 82yoCF who was direct admitted from Dr Alicea's clinic from weakness , influenza, and anemia. She states that she hasn't been feeling well since this fall and has undergone work up for her anemia. She had an EGD and colonoscopy on 03/14 that revealed h pylori. She underwent treatment with triple therapy. Over the past week she started to feel ill again with nausea and had poor oral intake. She was very weak as well. She was seen in the Er on and found to be positive for Flu A. She was started on Tamiflu but she felt that made her sick as well. Despite that she complied with therapy. She was seen for follow up by her PCP Dr Alicea yesterday and was found to be anemic still at 7.5. She was then admitted for further management. Today she states she is feeling a little better but still nausea and somewhat weak. She was able to work with PT this morning. Subjective/Events-last exam Pt is doing much better but not back at her baseline Inpatient rehab not an option since her functional status and ambulation is back to baseline Still coarse breath sounds noted on lungs from influenza episode Was transfused one unit of blood by Dr. Filippo Barkley recommends iron infusion and follow-up with him in one month Family having difficulty because other family members have cancer treatment at She lives in [place] and would use [facility] so will refer to swing bed for tomorrow Reviewed labs and meds Bowels have not moved since Wednesday so will initiate medication for that Focused Exam Lactate Level Objective Exam Vital Signs Vital Signs Date Time Temp Pulse Resp B/P (MAP) Pulse Ox O2 Delivery O2 Flow Rate FiO2 05/10/18 10:59 95 Room Air 05/10/18 08:25 98.6 108 18 119/56 (77) 05/09/18 02:23 2.00 05/07/18 14:23 21 Capillary Refill : General Appearance: No Apparent Distress, WD/WN, Anxious, Chronically ill, Obese HEENT: No Scleral Icterus (L), No Scleral Icterus (R) Respiratory: No Accessory Muscle Use, No Respiratory Distress, Crackles (in bases), Wheezing Cardiovascular: Regular Rate, Rhythm, No JVD, No Murmur Gastrointestinal: Normal Bowel Sounds, Non Tender, Soft Extremity: No Calf Tenderness, No Pedal Edema Neurologic/Psychiatric: Alert, Oriented x3 Results/Procedures Lab Laboratory Tests 05/10/18 05:45 Patient resulted labs reviewed. Imaging: Reviewed Imaging Report Assessment/Plan Assessment and Plan Assess & Plan/Chief Complaint Assessment: Influenza Episode Anemia iron deficient requiring one unit of transfusion and needs iron infusions Weakened state Advanced age Plan swing bed at [place] if approved PT and OT Bowel regimen Iron infusions per Dr. Barkley Diagnosis/Problems Diagnosis/Problems (1) Influenza A (2) Microcytic anemia Status: Chronic (3) Essential (primary) hypertension Status: Chronic (4) Acute respiratory distress Status: Resolved Clinical Quality Measures DVT/VTE Risk/Contraindication: Risk Factor Score Per Nursin RFS Level Per Nursing on Admit: 3=High CODY ELAINE MED STUDENT 05/09/18 1034: Subjective Subjective/Events-last exam Patient states she is feeling better today but still not well enough to care for herself at home. She slept well and is not in any pain. Has not had a BM since Wednesday morning, wanting to address this tomorrow since there is plan to do EGD today with Dr. Sheppard. Objective Exam General Appearance: No Apparent Distress, WD/WN Neck: Normal Inspection, Non Tender Respiratory: Crackles (in bases), Other (cough with deep inspiration) Cardiovascular: Regular Rate, Rhythm, No Murmur Gastrointestinal: Normal Bowel Sounds, Non Tender, Soft Extremity: Non Tender Neurologic/Psychiatric: Alert, Oriented x3 Skin: Normal Color, Warm/Dry Assessment/Plan Assessment and Plan Assess & Plan/Chief Complaint Assessment Influenza A Anemia, Hgb 8.2 today WBC increased to 16.8 today, likely due to solumedrol Respiratory distress, improving HTN Plan PT/OT evaluated and believe Lola is back to her baseline Dr. Noyola consulted for hematology- recommends continuing IV venofer EGD today Pulmonology consulted, Dr. Keith following Plan is to dc to swingbed in [place] tomorrow to continue iron infusions and gain strength before returning home Diagnosis/Problems Diagnosis/Problems (1) Microcytic anemia Status: Chronic (2) Essential (primary) hypertension Status: Chronic (3) Influenza A (4) Acute respiratory distress Status: Resolved ANDERS,MARKO DO May 09, 2018 10:05 CODY ELAINE MED STUDENT May 09, 2018 10:34
--- NOTE | 2018-05-09 10:15 | Physical Therapy Daily Note ---
PT Daily Note-Current Subjective Pt is in bed and agrees to PT. Pain Numeric Pain Scale: 0-No Pain Location: No Pain Reported Mental Status Patient Orientation: Person, Place, Situation, Normal For Age Transfers Therapy Code Descriptions/Definitions Functional [place] Measure: 0=Not Assessed/NA 4=Minimal Assistance 1=Total Assistance 5=Supervision or Setup 2=Maximal Assistance 6=Modified [place] 3=Moderate Assistance 7=Complete [place] Therapy Quality Codes: 6 Independent with activity with or without an assistive device 5 Patient requires set up or clean up by helper. Patient completes activity by themselves 4 Supervision or touching assist (CGA). [place] provide cues , steadying assist 3 The helper provides less than half the effort to complete the activity 2 The helper provides more than half the effort to complete the activity 1 Dependent. The helper does all the effort to complete an activity 7 Patient refused to complete or attempt activity 9 The patient did not perform the activity before the current illness or injury 88 Not attempted due to Medical conditions or safety concerns Transfers (B, C, W/C) (FIM): 5 Scootin Supine to/from Sit: 5 Sit to/from Stand: 5 Weight Bearing Right Lower Extremity: Right Weight Bearing/Tolerated Left Lower Extremity: Left Weight Bearing/Tolerated Gait Training Gait (FIM): 5 Distance (FIM): 3=150 ft Distance: 450' Gait Level of Assist: 5 Gait Persons Needed: 1 Gait Assistive Device: FWW Assessment Current Status: Good Progress Pt is able to perform bed mobility with SBA. Pt transfers sit<>stand SBA to FWW. Pt amb 450' with FWW and SBA. Pt returned to room and is up in recliner with all needs met. PT Short Term Goals Short Term Goals Time Frame: May 12, 2018 Transfers (B,C,W/C) (FIM): 5 Gait (FIM): 2 Distance (FIM): 7=030-14 ft Gait Distance Comment: 50' Gait Level of Assist: 5 Gait Assistive Device: FWW PT Plan Problem List Problem List: Activity Tolerance, Functional Strength, Safety, Balance, Gait Treatment/Plan Treatment Plan: Continue Plan of Care Treatment Plan: Bed Mobility, Education, Functional Activity [place], Functional Strength, Gait, Safety, Therapeutic Exercise, Transfers Treatment Duration: May 12, 2018 Frequency: 6 times per week Estimated Hrs Per Day: .25 hour per day Patient and/or Family Agrees t: Yes Time/GCodes Time In: 927 Time Out: 936 Total Billed Treatment Time: 9 Total Billed Treatment 1 visit FA 9 min NIKHIL TORRES PT May 09, 2018 10:15
--- NOTE | 2018-05-09 10:27 | NUR ---
CM DISCHARGE PLANNING: Per Dr. Corona's request spoke with Swing Bed Coordinator at [facility] et referral sent to Francie at [facility] for continued need for IV medications et PT/OT with ultimate goal to return to home at prior level of independent function. Updated DAVID Mireles on above faxed referral. Anticipate dismissal to [facility] on 05/10/18 if accepted. Awaiting accept/denial.
--- NOTE | 2018-05-09 10:50 | Pulmonary Progress Note ---
Subjective Time Seen by a Provider: 10:48 Sepsis Event Evaluation Height, Weight, BMI Height: 5'2.00" Weight: 188lbs. 1.6oz. 85.678034jq; 32.7 BMI Method:Stated Focused Exam Lactate Level 05/07/18 09:44: Lactic Acid Level 1.09 Exam Exam Vital Signs Date Time Temp Pulse Resp B/P (MAP) Pulse Ox O2 Delivery O2 Flow Rate FiO2 05/09/18 10:09 92 Room Air 05/09/18 07:37 98.8 99 20 137/67 (90) 94 Room Air 05/09/18 06:18 94 Room Air 05/09/18 02:23 97 Nasal Cannula 2.00 05/09/18 00:00 96.6 103 20 128/55 (79) 96 Room Air 05/08/18 20:00 Room Air 05/08/18 19:14 97 Nasal Cannula 2.00 05/08/18 16:00 97.9 113 20 144/71 (95) 94 Room Air 05/08/18 15:02 95 Nasal Cannula 2.00 I & O 05/09/18 07:00 Intake Total 2080 ml Balance 2080 ml Height & Weight Height: 5'2.00" Weight: 188lbs. 1.6oz. 85.505502ax; 32.7 BMI Method:Stated General Appearance: No Apparent Distress, WD/WN HEENT: No Scleral Icterus (L), No Scleral Icterus (R) Neck: Normal Inspection, Non Tender Respiratory: Crackles (in bases), Other (cough with deep inspiration) Cardiovascular: Regular Rate, Rhythm, No Murmur Gastrointestinal: non tender, soft Extremity: Non Tender Neurologic/Psychiatric: Alert, Oriented x3 Skin: Normal Color, Warm/Dry Results Lab Laboratory Tests 05/07/18 16:02 05/07/18 16:09 05/08/18 05:25 05/09/18 05:41 Assessment/Plan Assessment/Plan SOB with hypoxia - improving -Solumedrol - ferguson to prednisone taper. -labs pending Influenza A -S/p Tamiflu Microcytic anemia s/p EGD/Colonoscopy 03/14/18 -Venofer H pylori ulcer s/p treatment LEA WANG DO May 09, 2018 10:49
--- NOTE | 2018-05-09 12:18 | NUR ---
TO ENDO PER WC.
[2018-05-09] MEDS ORDERED: fentaNYL INJECTION 100 MCG/2 ML AMP ONE (12:19)
[2018-05-09] MEDS ORDERED: MIDAZOLAM 2 MG/2 ML (VERSED) VIAL ONE ×2 (12:20)
[2018-05-09] MEDS ORDERED: HURRICAINE EXT TUBE (BENZOCAINE) ONE (12:20)
[2018-05-09] MEDS ORDERED: NS IV 500 ML 500 ML ONE (12:21)
[2018-05-09] MEDS ORDERED: NS IV 500 ML 500 ML IV PRN (12:31)
[2018-05-09] MEDS ORDERED: fentaNYL INJECTION 100 MCG/2 ML AMP IVP ONE (12:45)
[2018-05-09] MEDS ORDERED: HURRICAINE EXT TUBE (BENZOCAINE) XX PRN (12:45)
[2018-05-09] MEDS ORDERED: MIDAZOLAM 2 MG/2 ML (VERSED) VIAL IVP ONE (12:45)
--- NOTE | 2018-05-09 14:10 | Endo Procedure Record ---
Endo Procedure Report Date of Procedure Last Colonoscopy: Yes (UNSURE) May 09, 2018 Surgeon (s) THOMAS ESQUIVEL MD Post Procedure/Op Diagnosis healed gastric ulcers Procedure Performed EGD with antral biopsy for H. pylori Description of Procedure Anesthesia Type: Conscious Sedation Specimen(s) collected/removed antral mucosa for H. pylori Description of the Procedure Indication for the procedure: This lady was found to have gastric erosions and positive H. pylori infection in February 2018. Currently, she has been admitted with respiratory issues following influenza infection. She was found to be anemic and therefore reassessing the gastric ulcers was felt to be reasonable. Informed consent was obtained after reviewing the procedure in detail. Description of the procedure: She was placed in left lateral position and her vital signs were monitored. Conscious sedation was achieved using Versed and fentanyl. The flexible gastroscope was then introduced down the esophagus, past the stomach, into the proximal duodenum. Findings: Esophagus: Short hiatal hernia without any inflammation. Stomach and duodenum were normal. Due to previous H. pylori infection, an antral biopsy was repeated. She tolerated the procedure well and was taken to the nursing area in a stable condition. Impression: Previous gastric erosions, currently healed. H.pylori status pending. Copy Copies To 1: JENAE RAMESH DO Copies To 2: MARKO ANDERS XAVIER M MD May 09, 2018 14:10
--- NOTE | 2018-05-09 14:35 | NUR ---
RET'D FROM ENDO PER BED. ALERT AND ORIENTED.
[2018-05-09 14:38] VITALS: BP 138/70
[2018-05-09] MEDS: predniSONE 10 MG TAB PO SCH (15:10)
[2018-05-09 15:49] VITALS: BP 144/69
--- NOTE | 2018-05-09 16:52 | NUR ---
Pt has been referred to [facility] Swing Bed program. Pt thinks she could benefit from a short-term stay to regain strength. If not accepted she refuses intermediate home placement but would be able to return home with assistance from family on Wednesday the and would benefit from short-term Home Care with intermediate and therapies.
[2018-05-09] MEDS: MELATONIN 3 MG TABLET PO PRN (21:05)
[2018-05-09] MEDS: PANTOPRAZOLE 40 MG (PROTONIX) TAB PO SCH (21:05)
[2018-05-09] MEDS: LATANOPROST 0.005% (XALATAN) OPHTH SOLN 2.5 ML OU SCH (21:06)
[2018-05-09] MEDS: ONDANSETRON 4 MG/2 ML (SDV) Z0FRAN IV PRN (23:43)
[2018-05-09 23:54] VITALS: BP 134/64
[2018-05-10] MEDS: RT-ALBUTEROL/IPRATROPIUM 3 ML (DUONEB) VIAL INH SCH ×4 (01:19→14:55)
[2018-05-10 03:52] VITALS: BP 177/73
--- NOTE | 2018-05-10 03:58 | NUR ---
This RN called Dr. Ratliff in reference to the patient having nausea/vomiting and an increased heart rate. Patient was given zofran as ordered with no relief. Dr. Ratliff orders Zofran 8mg Q4H PRN. Patients heart rate is 132 and heart rate has not been high since admission. Dr. Ratliff ordered to have an EKG. All orders are repeated and confirmed.
[2018-05-10] MEDS ORDERED: ONDANSETRON 4 MG/2 ML (SDV) Z0FRAN IVP PRN (04:00)
[2018-05-10 06:05] LABS: BASOPHILS % (AUTO) 0 % (0-10); EOSINOPHILS % (AUTO) 0 % (0-10); HEMATOCRIT 26 % (35-52); HEMOGLOBIN 7.8 G/DL (11.5-16.0); LYMPHOCYTES # (AUTO) 1.1 X 10^3 (1.0-4.0); LYMPHOCYTES % (AUTO) 7 % (12-44); MEAN CORPUSCULAR HEMOGLOBIN 19 PG (25-34); MEAN CORPUSCULAR HGB CONC 30 G/DL (32-36); MEAN CORPUSCULAR VOLUME 62 FL (80-99); MEAN PLATELET VOLUME 9.5 FL (7.4-10.4); MONOCYTES # (AUTO) 1.2 X 10^3 (0.0-1.0); MONOCYTES % (AUTO) 8 % (0-12); NEUTROPHILS # (AUTO) 12.7 X 10^3 (1.8-7.8); NEUTROPHILS % (AUTO) 85 % (42-75); PLATELET COUNT 391 10^3/uL (130-400); RED CELL DISTRIBUTION WIDTH 25.2 % (10.0-14.5); WHITE BLOOD COUNT 14.9 10^3/uL (4.3-11.0)
[2018-05-10 06:24] LABS: BUN/CREATININE RATIO 23; CALCIUM 7.8 MG/DL (8.5-10.1); CARBON DIOXIDE 22 MMOL/L (21-32); CHLORIDE 106 MMOL/L (98-107); CREATININE SERUM 0.78 MG/DL (0.60-1.30); GFR ESTIMATED > 60; GLUCOSE 181 MG/DL (70-105); PHOSPHORUS 1.6 MG/DL (2.3-4.7); POTASSIUM 3.4 MMOL/L (3.6-5.0); SODIUM 137 MMOL/L (135-145)
--- NOTE | 2018-05-10 07:30 | Pulmonary Progress Note ---
Sepsis Event Evaluation Height, Weight, BMI Height: 5'2.00" Weight: 188lbs. 1.6oz. 85.338588bc; 32.7 BMI Method:Stated Focused Exam Lactate Level 05/07/18 09:44: Lactic Acid Level 1.09 Exam Exam Vital Signs Date Time Temp Pulse Resp B/P (MAP) Pulse Ox O2 Delivery O2 Flow Rate FiO2 05/10/18 06:59 96 Room Air 05/10/18 03:52 132 177/73 (107) 05/10/18 01:19 Room Air 05/09/18 23:54 98.6 110 18 134/64 (87) 96 Room Air 05/09/18 21:42 94 Room Air 05/09/18 20:00 Room Air 05/09/18 18:44 95 Room Air 05/09/18 15:49 96.9 74 18 144/69 (94) 97 Room Air 05/09/18 14:38 97.8 82 20 138/70 (92) 96 Room Air 05/09/18 10:09 92 Room Air 05/09/18 08:00 Room Air 05/09/18 07:37 98.8 99 20 137/67 (90) 94 Room Air I & O 05/10/18 07:00 Intake Total 780 ml Balance 780 ml Height & Weight Height: 5'2.00" Weight: 188lbs. 1.6oz. 85.409438bb; 32.7 BMI Method:Stated General Appearance: No Apparent Distress, WD/WN HEENT: No Scleral Icterus (L), No Scleral Icterus (R) Neck: Normal Inspection, Non Tender Respiratory: Crackles (in bases), Other (cough with deep inspiration) Cardiovascular: Regular Rate, Rhythm, No Murmur Gastrointestinal: non tender, soft Extremity: Non Tender Neurologic/Psychiatric: Alert, Oriented x3 Skin: Normal Color, Warm/Dry Results Lab Laboratory Tests 05/09/18 05:41 05/10/18 05:45 Assessment/Plan Assessment/Plan SOB with hypoxia - improving -prednisone taper. Leukocytosis - secondary to steroids. Influenza A -S/p Tamiflu Microcytic anemia s/p EGD/Colonoscopy 03/14/18 -Venofer H pylori ulcer s/p treatment LEA WANG DO May 10, 2018 07:30
[2018-05-10 08:25] VITALS: BP 119/56
--- NOTE | 2018-05-10 09:16 | Physical Therapy Daily Note ---
PT Daily Note-Current Subjective Pt in bed and agrees to PT. Reports she had a rough night of vomiting and HR spiking. Mental Status Patient Orientation: Person, Place, Situation, Normal For Age Transfers Therapy Code Descriptions/Definitions Functional [place] Measure: 0=Not Assessed/NA 4=Minimal Assistance 1=Total Assistance 5=Supervision or Setup 2=Maximal Assistance 6=Modified [place] 3=Moderate Assistance 7=Complete [place] Therapy Quality Codes: 6 Independent with activity with or without an assistive device 5 Patient requires set up or clean up by helper. Patient completes activity by themselves 4 Supervision or touching assist (CGA). [place] provide cues , steadying assist 3 The helper provides less than half the effort to complete the activity 2 The helper provides more than half the effort to complete the activity 1 Dependent. The helper does all the effort to complete an activity 7 Patient refused to complete or attempt activity 9 The patient did not perform the activity before the current illness or injury 88 Not attempted due to Medical conditions or safety concerns Transfers (B, C, W/C) (FIM): 7 Scootin Rollin Supine to/from Sit: 7 Sit to/from Stand: 6 Weight Bearing Right Lower Extremity: Right Weight Bearing/Tolerated Left Lower Extremity: Left Weight Bearing/Tolerated Gait Training Gait (FIM): 6 Distance (FIM): 3=150 ft Distance: 600' Gait Level of Assist: 6 Gait Persons Needed: 1 Gait Assistive Device: FWW Assessment Current Status: Fair Progress Pt able to perform bed mobility indep. Pt sit<>stand transfer is indep to FWW. Pt able to amb 600' with FWW. Pt returned to room and is in recliner. PT took pt vitals due to pt SOA and fatigue, O2 96%, BP 155/70, HR 109. Pt has all needs met. PT Short Term Goals Short Term Goals Time Frame: May 12, 2018 Transfers (B,C,W/C) (FIM): 5 Gait (FIM): 2 Distance (FIM): 5=082-98 ft Gait Distance Comment: 50' Gait Level of Assist: 5 Gait Assistive Device: FWW PT Plan Problem List Problem List: Activity Tolerance, Functional Strength, Safety, Balance, Gait, Transfer Treatment/Plan Treatment Plan: Continue Plan of Care Treatment Plan: Bed Mobility, Education, Functional Activity [place], Functional Strength, Gait, Safety, Therapeutic Exercise, Transfers Treatment Duration: May 12, 2018 Frequency: 6 times per week Estimated Hrs Per Day: .25 hour per day Patient and/or Family Agrees t: Yes Safety Risks/Education Patient Education: Gait Training, Transfer Techniques, Correct Positioning, Safety Issues Teaching Recipient: Patient Teaching Methods: Demonstration, Discussion Time/GCodes Time In: 808 Time Out: 817 Total Billed Treatment Time: 9 Total Billed Treatment 1 visit GT 9 min NIKHIL TORRES PT May 10, 2018 09:16
[2018-05-10] MEDS: predniSONE 10 MG TAB PO SCH (09:28)
[2018-05-10] MEDS: METOCLOPRAMIDE 5 MG (REGLAN) TAB PO SCH ×2 (09:29→14:26)
[2018-05-10] MEDS: IRON SUCROSE 200 MG/10 ML (VENOFER) VIAL IV SCH (09:30)
--- NOTE | 2018-05-10 09:48 | NUR ---
Pt has been accepted by the Swing Bed program at [facility]. Pt agreeable and will be transported to [facility] late afternoon by her son and [id number].
[2018-05-10] MEDS ORDERED: IPRA3AMP31 INH (09:51)
[2018-05-10] MEDS ORDERED: BENZ100C18 PO (09:51)
[2018-05-10] MEDS ORDERED: IRON100V2 IV (09:51)
[2018-05-10] MEDS ORDERED: METH40VI2 IV (09:51)
--- NOTE | 2018-05-10 09:53 | Discharge Inst-Skilled Nursing ---
Discharge Inst-Skilled NF Patient Instructions Patient Problems: Influenza with respiratory manifestation Severe weakness due to anemia and influenza residual GERD Goal: Return to independent living Consult/Follow Up/Orders Follow Up Appt.: Dr Alicea after DC [facility] Skilled NF Admit to: [facility] Certification (SNF) I certify that SNF services are required to be given on an inpatient basis because of the above named patient's need for jail care on a continuing basis for the conditions(s) for which he/she was receiving inpatient hospital services prior to his/her transfer to the SNF. Senior Living Facility Order: Nursing Services, Repair Cameraman-Evaluate & Treat, Physical Therapy-Evaluate & Treat Oxygen Delivery Method: Room Air Discharge Diet: No Restrictions Daily Activity as Tolerated: Yes New & Resume Previous Orders Sapphire Corona May 10, 2018 09:52 SAPPHIRE CORONA DO May 10, 2018 09:53
--- NOTE | 2018-05-10 09:54 | Discharge Summary-Hospitalist ---
MARKO ANDERS DO 05/10/18 0954: Diagnosis/Chief Complaint Date of Admission May 04, 2018 at 18:10 Date of Discharge Discharge Date: May 10, 2018 Discharge Time: 1800 Admission Diagnosis Influenza A Discharge Diagnosis (1) Microcytic anemia Status: Chronic (2) Essential (primary) hypertension Status: Chronic (3) Influenza A (4) Acute respiratory distress Status: Resolved Discharge Summary Discharge Physical Exam Allergies: Coded Allergies: No Known Drug Allergies (Verified , 05/09/18) Vitals & I&Os Vital Signs Date Time Temp Pulse Resp B/P (MAP) Pulse Ox O2 Delivery O2 Flow Rate FiO2 05/10/18 18:15 05/10/18 10:59 95 Room Air 05/10/18 08:25 98.6 108 18 05/09/18 02:23 2.00 05/07/18 14:23 21 General Appearance: No Apparent Distress, WD/WN HEENT: No Scleral Icterus (L), No Scleral Icterus (R) Respiratory: Crackles (in bases), Other (cough with deep inspiration) Cardiovascular: Regular Rate, Rhythm, No Murmur Gastrointestinal: Normal Bowel Sounds, Non Tender, Soft Extremity: Non Tender Skin: Normal Color, Warm/Dry Neurologic/Psychiatric: Alert, Oriented x3 Hospital Course Was the Problem List Reviewed?: Yes Hospital Course: Pt had an uneventful hospital course although lengthy after she experienced respiratory difficulties due to influenza. Complex case continues including iron deficiency anemia requiring repeat EGD because of the history of the stomach ulcer, diagnosed in February by Dr. Sheppard. A repeat EGD was performed and that revealed complete healing of the ulcer although gastritis still remains. Dr. Noyola was consulted for anemia and recommended iron infusions of 200mg IV for 5 doses every other day. Pt required a lot of help with physical therapy and occupational health so she is deemed meeting criteria for swing bed due to severe weakness from influenza residual and sever anemia meeting criteria for PT and OT and nursing services for IV iron and Solu-Medrol at [facility] so those arrangements were made and she was discharged there for swing bed with close follow-up. Labs (last 24 hrs) Laboratory Tests 05/10/18 05:45: White Blood Count 14.9H, Red Blood Count 4.17L, Hemoglobin 7.8L, Hematocrit 26L , Mean Corpuscular Volume 62L, Mean Corpuscular Hemoglobin 19L, Mean Corpuscular Hemoglobin Concent 30L, Red Cell Distribution Width 25.2H, Platelet Count 391, Mean Platelet Volume 9.5, Neutrophils (%) (Auto) 85H, Lymphocytes (% ) (Auto) 7L, Monocytes (%) (Auto) 8, Eosinophils (%) (Auto) 0, Basophils (%) ( Auto) 0, Neutrophils # (Auto) 12.7H, Lymphocytes # (Auto) 1.1, Monocytes # (Auto ) 1.2H, Eosinophils # (Auto) 0.0, Basophils # (Auto) 0.0, Sodium Level 137, Potassium Level 3.4L, Chloride Level 106, Carbon Dioxide Level 22, Anion Gap 9, Blood Urea Nitrogen 18, Creatinine 0.78, Estimat Glomerular Filtration Rate > 60 , BUN/Creatinine Ratio 23, Glucose Level 181H, Calcium Level 7.8L, Phosphorus Level 1.6L, Magnesium Level 2.0 Patient resulted labs reviewed. Pending Labs Imaging: Reviewed Imaging Report Discussion & Recommendations Discharge Planning: <30 minutes discharge planning Discharge Home Medications: Active Scripts Active Solu-Medrol 40 mg Vial (Methylprednisolone Sod Succ/Pf) 40 Mg/1 Ml Vial 40 Mg IV Q12H 3 Days Tessalon Perles (Benzonatate) 100 Mg Capsule 100 Mg PO TID PRN 7 Days Venofer (Iron Sucrose Complex) 200 Mg/10 Ml Vial 200 Mg IV Q48H@09 next dose , 05/12/18 Iprat-Albut 0.5-3(2.5) mg/3 ml (Ipratropium/Albuterol Sulfate) 3 Ml Ampul.neb 3 Ml INH RTQ4HR 7 Days Ondansetron Odt (Ondansetron) 4 Mg Tab.rapdis 4 Mg PO Q6H PRN Reported Cyanocobalamin Injection (Cyanocobalamin) 1,000 Mcg/Ml Inj 1,000 Mcg INJ MONTHLY Latanoprost 2.5 Ml Drops 1 Drop OU HS Pantoprazole Sodium 40 Mg Tablet.dr 40 Mg PO HS Metoprolol Succinate 25 Mg Tab.er.24h 25 Mg PO HS Metoclopramide HCl 5 Mg Tablet 5 Mg PO TID Benazepril HCl 40 Mg Tab 40 Mg PO DAILY Instructions to patient/family Please see electronic discharge instructions given to patient. Clinical Quality Measures DVT/VTE Risk/Contraindication: Risk Factor Score Per Nursin RFS Level Per Nursing on Admit: 3=High LETI CLARK MEDICAL STUDENT 05/10/18 1029: Diagnosis/Chief Complaint Admission Diagnosis Influenza A, weakness, fatigue, anemia Discharge Diagnosis Influenza A, weakness, anemia (1) Influenza A (2) Microcytic anemia Status: Chronic (3) Occult blood positive stool Status: Acute (4) Acute respiratory distress Status: Resolved (5) Essential (primary) hypertension Status: Chronic (6) H pylori ulcer Status: Resolved Discharge Summary Procedures/Consulations Pulmonology Hematology General surgery Discharge Physical Exam Allergies: Coded Allergies: No Known Drug Allergies (Verified , 05/09/18) General Appearance: No Apparent Distress, WD/WN HEENT: PERRL/EOMI, Pharynx Normal; No Pale Conjunctivae (L), No Pale Conjunctivae (R) Respiratory: Chest Non Tender, Lungs Clear, Normal Breath Sounds, No Accessory Muscle Use, No Respiratory Distress Cardiovascular: Regular Rate, Rhythm, No Murmur Gastrointestinal: Normal Bowel Sounds, Non Tender, Soft Extremity: Non Tender, No Pedal Edema Skin: Normal Color, Warm/Dry Neurologic/Psychiatric: Alert, Oriented x3 Hospital Course Was the Problem List Reviewed?: Yes This is a 82 yo W female who was admitted from PCP Dr. Alicae for weakness and anemia s/p influenza A and tamiflu tx. She has been dealing with the anemia since February, had an EGD and colonoscopy on 03/14 that was positive for H. pylori. The pt completed triple therapy. She went for f/u for the influenza w/ her PCP on 05/03/18 and was found to be anemic at 6.9 and was sent to hospital for further workup and management. Pt was found to be hemeoccult positive. General surgery was consulted and Dr. Sheppard performed EGD which was negative for ulcer, antral biopsy pending. Pulmonology was consulted for acute respiratory distress, but this resolved w/ solumedrol, duonebs, and oxygen support. Dr. Mclean was consulted for hematology; he recommended ongoing Venofer. PT/OT was utilized throughout her stay. Pt is being [place] [facility] [place]. Imaging: Reviewed Imaging Films, Reviewed Imaging Report Discussion & Recommendations Discharge Planning: <30 minutes discharge planning MARKO ANDERS DO May 10, 2018 09:54 LETI CLARK MEDICAL STUDENT May 10, 2018 10:29
[2018-05-10] MEDS: lisINopril 40 MG (PRINIVIL) TABLET PO SCH (15:06)
== END 2018-05-10 18:15 | disposition swing bed (61) | DRG 812 ==
LOC: 4TH 18:10
PROVIDERS: ADMIT Family Medicine; ATTEND Family Medicine
PROC: 0DB78ZX Excision of Stomach, Pylorus, Via Natural or Artificial Opening Endoscopic, Diagnostic (ICD-10-PCS; principal; 2018-05-09 12:00)
DX: D50.0 Iron deficiency anemia secondary to blood loss (chronic) (principal); E87.2 Acidosis; J10.89 Influenza due to other identified influenza virus with other manifestations; R53.1 Weakness; J10.1 Influenza due to other identified influenza virus with other respiratory manifestations; R05 Cough; J10.2 Influenza due to other identified influenza virus with gastrointestinal manifestations; R11.0 Nausea; R06.03 Acute respiratory distress; R06.02 Shortness of breath; R09.02 Hypoxemia; E89.0 Postprocedural hypothyroidism; I10 Essential (primary) hypertension; E78.00 Pure hypercholesterolemia, unspecified; K21.9 Gastro-esophageal reflux disease without esophagitis; H40.9 Unspecified glaucoma; E87.6 Hypokalemia; Z87.11 Personal history of peptic ulcer disease; Z86.19 Personal history of other infectious and parasitic diseases
CPT/HCPCS: 36415; 71045; 80048; 80053; 82728; 82805; 83540; 83605; 83735; 83880; 84100; 84484; 85007; 85025; 85027; 85045; 86850; 86900; 86901; 86920; 93005; 94640; 94664; 94760

== ENCOUNTER → 2018-09-26 | Outpatient (RCR) | payer MEDICARE ==
[2018-06-28 13:47] LABS: BASOPHILS % (AUTO) 0 % (0-10); EOSINOPHILS # (AUTO) 0.1 10^3/uL (0.0-0.3); EOSINOPHILS % (AUTO) 2 % (0-10); HEMATOCRIT 39 % (35-52); HEMOGLOBIN 13.3 G/DL (11.5-16.0); LYMPHOCYTES # (AUTO) 2.7 X 10^3 (1.0-4.0); LYMPHOCYTES % (AUTO) 31 % (12-44); MEAN CORPUSCULAR HEMOGLOBIN 26 PG (25-34); MEAN CORPUSCULAR HGB CONC 34 G/DL (32-36); MEAN CORPUSCULAR VOLUME 76 FL (80-99); MEAN PLATELET VOLUME 9.2 FL (7.4-10.4); MONOCYTES # (AUTO) 0.9 X 10^3 (0.0-1.0); MONOCYTES % (AUTO) 10 % (0-12); NEUTROPHILS # (AUTO) 5.1 X 10^3 (1.8-7.8); NEUTROPHILS % (AUTO) 57 % (42-75); PLATELET COUNT 202 10^3/uL (130-400); WHITE BLOOD COUNT 8.8 10^3/uL (4.3-11.0)
[2018-06-28 14:10] LABS: ALANINE AMINOTRANSFERASE 9 U/L (0-55); ALBUMIN 3.4 GM/DL (3.2-4.5); ALKALINE PHOSPHATASE 73 U/L (40-136); BILIRUBIN,TOTAL 1.2 MG/DL (0.1-1.0); BUN/CREATININE RATIO 15; CALCIUM 9.1 MG/DL (8.5-10.1); CARBON DIOXIDE 25 MMOL/L (21-32); CHLORIDE 106 MMOL/L (98-107); CREATININE SERUM 0.72 MG/DL (0.60-1.30); GFR ESTIMATED > 60; GLUCOSE 103 MG/DL (70-105); POTASSIUM 3.9 MMOL/L (3.6-5.0); SODIUM 138 MMOL/L (135-145); TOTAL PROTEIN 6.5 GM/DL (6.4-8.2)
[~2018-09-26] MED LIST changes: +BENZ100C18 PO; +CNC1KV INJ; +IPRA3AMP31 INH; +IRON100V2 IV; +METH40VI2 IV
[2018-09-26 13:59] LABS: BASOPHILS % (AUTO) 0 % (0-10); EOSINOPHILS # (AUTO) 0.2 10^3/uL (0.0-0.3); EOSINOPHILS % (AUTO) 2 % (0-10); HEMATOCRIT 39 % (35-52); HEMOGLOBIN 13.1 G/DL (11.5-16.0); LYMPHOCYTES % (AUTO) 26 % (12-44); MEAN CORPUSCULAR HEMOGLOBIN 27 PG (25-34); MEAN CORPUSCULAR HGB CONC 34 G/DL (32-36); MEAN CORPUSCULAR VOLUME 81 FL (80-99); MONOCYTES # (AUTO) 0.7 X 10^3 (0.0-1.0); MONOCYTES % (AUTO) 9 % (0-12); NEUTROPHILS # (AUTO) 4.9 X 10^3 (1.8-7.8); NEUTROPHILS % (AUTO) 63 % (42-75); PLATELET COUNT 260 10^3/uL (130-400); WHITE BLOOD COUNT 7.8 10^3/uL (4.3-11.0)
[2018-09-26 14:18] LABS: ALANINE AMINOTRANSFERASE 9 U/L (0-55); ALBUMIN 3.5 GM/DL (3.2-4.5); ALKALINE PHOSPHATASE 60 U/L (40-136); BILIRUBIN,TOTAL 0.8 MG/DL (0.1-1.0); BUN/CREATININE RATIO 13; CALCIUM 8.8 MG/DL (8.5-10.1); CARBON DIOXIDE 24 MMOL/L (21-32); CHLORIDE 103 MMOL/L (98-107); CREATININE SERUM 0.75 MG/DL (0.60-1.30); GFR ESTIMATED > 60; GLUCOSE 117 MG/DL (70-105); POTASSIUM 4.1 MMOL/L (3.6-5.0); SODIUM 135 MMOL/L (135-145); TOTAL PROTEIN 6.6 GM/DL (6.4-8.2)
== END | disposition home or self-care (01) ==
LOC: ONC 06-28 13:27
PROVIDERS: ATTEND Internal Medicine Hematology & Oncology
DX: D50.9 Iron deficiency anemia, unspecified (principal); K25.9 Gastric ulcer, unspecified as acute or chronic, without hemorrhage or perforation; I10 Essential (primary) hypertension; E78.5 Hyperlipidemia, unspecified; I27.20 Pulmonary hypertension, unspecified; I35.1 Nonrheumatic aortic (valve) insufficiency; E66.9 Obesity, unspecified; Z68.33 Body mass index [BMI] 33.0-33.9, adult; Z79.82 Long term (current) use of aspirin; Z79.899 Other long term (current) drug therapy
CPT/HCPCS: 36415; 80053; 82728; 85025; 99213

== ENCOUNTER 2018-11-03 10:19 | Outpatient (RCR) | payer MEDICARE ==
[~2018-11-03 10:19] MED LIST changes: +FERRIC CARBOXYMALTOSE (CANCER) 750 MG in NS (IVPB) CANCER CENTER 250 ML IV SCH
== END 2018-12-28 | disposition home or self-care (01) ==
LOC: ONC 10:19
PROVIDERS: ATTEND Internal Medicine Hematology & Oncology
DX: D50.9 Iron deficiency anemia, unspecified (principal); K25.9 Gastric ulcer, unspecified as acute or chronic, without hemorrhage or perforation; I10 Essential (primary) hypertension; E78.5 Hyperlipidemia, unspecified; I27.20 Pulmonary hypertension, unspecified; I35.1 Nonrheumatic aortic (valve) insufficiency; E66.9 Obesity, unspecified; Z68.33 Body mass index [BMI] 33.0-33.9, adult; Z79.82 Long term (current) use of aspirin; Z79.899 Other long term (current) drug therapy
CPT/HCPCS: 36415; 82728; 96365; 99213

== ENCOUNTER 2019-01-12 09:58 | Outpatient (RCR) | payer MEDICARE ==
[2019-01-05 16:18] LABS: BASOPHILS % (AUTO) 0 % (0-10); EOSINOPHILS # (AUTO) 0.2 10^3/uL (0.0-0.3); EOSINOPHILS % (AUTO) 3 % (0-10); HEMATOCRIT 43 % (35-52); LYMPHOCYTES # (AUTO) 2.1 X 10^3 (1.0-4.0); LYMPHOCYTES % (AUTO) 28 % (12-44); MEAN CORPUSCULAR HEMOGLOBIN 31 PG (25-34); MEAN CORPUSCULAR HGB CONC 35 G/DL (32-36); MEAN CORPUSCULAR VOLUME 89 FL (80-99); MEAN PLATELET VOLUME 9.9 FL (7.4-10.4); MONOCYTES # (AUTO) 0.8 X 10^3 (0.0-1.0); MONOCYTES % (AUTO) 11 % (0-12); NEUTROPHILS # (AUTO) 4.3 X 10^3 (1.8-7.8); NEUTROPHILS % (AUTO) 58 % (42-75); PLATELET COUNT 206 10^3/uL (130-400); RED CELL DISTRIBUTION WIDTH 14.8 % (10.0-14.5); WHITE BLOOD COUNT 7.4 10^3/uL (4.3-11.0)
[2019-01-05 16:32] LABS: ALANINE AMINOTRANSFERASE 8 U/L (0-55); ALBUMIN 3.4 GM/DL (3.2-4.5); ALKALINE PHOSPHATASE 72 U/L (40-136); BILIRUBIN,TOTAL 1.2 MG/DL (0.1-1.0); BUN/CREATININE RATIO 14; CALCIUM 8.8 MG/DL (8.5-10.1); CARBON DIOXIDE 28 MMOL/L (21-32); CHLORIDE 102 MMOL/L (98-107); CREATININE SERUM 0.73 MG/DL (0.60-1.30); GFR ESTIMATED > 60; GLUCOSE 103 MG/DL (70-105); SODIUM 136 MMOL/L (135-145); TOTAL PROTEIN 6.3 GM/DL (6.4-8.2)
[~2019-01-12 09:58] MED LIST changes: -FERRIC CARBOXYMALTOSE (CANCER) 750 MG in NS (IVPB) CANCER CENTER 250 ML IV SCH; -METO-387 PO; +MTP25TSR PO
== END 2019-04-05 | disposition home or self-care (01) ==
LOC: ONC 09:58
PROVIDERS: ATTEND Internal Medicine Hematology & Oncology
DX: D50.9 Iron deficiency anemia, unspecified (principal); K25.9 Gastric ulcer, unspecified as acute or chronic, without hemorrhage or perforation; B96.81 Helicobacter pylori [H. pylori] as the cause of diseases classified elsewhere; Z79.899 Other long term (current) drug therapy; Z79.82 Long term (current) use of aspirin; Z79.2 Long term (current) use of antibiotics
CPT/HCPCS: 36415; 80053; 82728; 85025; 99213

== ENCOUNTER 2019-08-31 08:58 | Outpatient (RCR) | payer MEDICARE ==
[2019-08-24 10:39] LABS: BASOPHILS % (AUTO) 0 % (0-10); EOSINOPHILS # (AUTO) 0.2 10^3/uL (0.0-0.3); EOSINOPHILS % (AUTO) 2 % (0-10); HEMATOCRIT 44 % (35-52); LYMPHOCYTES % (AUTO) 23 % (12-44); MEAN CORPUSCULAR HEMOGLOBIN 31 PG (25-34); MEAN CORPUSCULAR HGB CONC 35 G/DL (32-36); MEAN CORPUSCULAR VOLUME 90 FL (80-99); MEAN PLATELET VOLUME 9.6 FL (7.4-10.4); MONOCYTES % (AUTO) 11 % (0-12); NEUTROPHILS # (AUTO) 5.5 X 10^3 (1.8-7.8); NEUTROPHILS % (AUTO) 63 % (42-75); PLATELET COUNT 218 10^3/uL (130-400); RED CELL DISTRIBUTION WIDTH 14.2 % (10.0-14.5); WHITE BLOOD COUNT 8.7 10^3/uL (4.3-11.0)
[2019-08-24 11:01] LABS: ALANINE AMINOTRANSFERASE 7 U/L (0-55); ALBUMIN 3.4 GM/DL (3.2-4.5); ALKALINE PHOSPHATASE 67 U/L (40-136); BUN/CREATININE RATIO 16; CALCIUM 8.5 MG/DL (8.5-10.1); CARBON DIOXIDE 27 MMOL/L (21-32); CHLORIDE 102 MMOL/L (98-107); GFR ESTIMATED > 60; GLUCOSE 103 MG/DL (70-105); SODIUM 134 MMOL/L (135-145); TOTAL PROTEIN 6.5 GM/DL (6.4-8.2)
[2019-10-02] MEDS ORDERED: CLON0.1T PO (11:51)
[2019-10-02] MEDS ORDERED: LACT10SO63 PO (11:51)
[2019-10-02] MEDS ORDERED: ONDA-105 PO (11:51)
[2019-10-02] MEDS ORDERED: AMLO5TAB9 PO (11:51)
[2019-10-02] MEDS ORDERED: CLOT15CR28 TOP (11:51)
[2019-10-02] MEDS ORDERED: DOCU-143 PO (11:53)
[2019-10-02] MEDS ORDERED: ASPI-983 PO (11:53)
[2019-10-02] MEDS ORDERED: PRED5DRO OD (11:53)
[2019-10-02] MEDS ORDERED: BRIM5DRO OS (11:53)
[2019-10-04] MEDS ORDERED: LISI40TA PO (11:20)
[2019-10-04] MEDS ORDERED: NITR0.4T39 SL (11:20)
[2019-10-05] MEDS ORDERED: BENA40TA5 PO (10:53)
[2019-10-05] MEDS ORDERED: PRED5DRO ×2 (18:57→19:29)
[2019-10-17] MEDS ORDERED: MIRT-47 PO (06:45)
[2019-10-17] MEDS ORDERED: METO5TAB2 PO (06:45)
[2019-10-17] MEDS ORDERED: ALPR0.254 PO (06:45)
[2019-10-17] MEDS ORDERED: CARV12.53 PO (06:45)
[2019-10-17] MEDS ORDERED: TRIA1TAB5 PO (11:18)
== END 2019-11-22 | disposition home or self-care (01) ==
LOC: ONC 08:58
PROVIDERS: ATTEND Internal Medicine Hematology & Oncology
DX: D50.9 Iron deficiency anemia, unspecified (principal)
CPT/HCPCS: 80053; 82728; 85025; 99213

== ENCOUNTER 2019-10-01 12:51 | Observation (INO) | payer MEDICARE ==
[~2019-10-01] VITALS: Ht 157 cm; Wt 81.6 kg
[2019-10-01] MEDS ORDERED: LACTATED RINGERS 1,000 ML IV ONE (13:39)
[2019-10-01] MEDS ORDERED: ONDANSETRON 4 MG/2 ML (SDV) Z0FRAN IVP ONE (13:45)
--- NOTE | 2019-10-01 14:02 | ED General ---
General Stated Complaint: NAUSEA/VOMITING/WEAKNESS Source of Information: Patient History of Present Illness Date Seen by Provider: Oct 01, 2019 Time Seen by Provider: 13:35 Initial Comments PT ARRIVES VIA POV FROM HOME, WALKS IN ON HER OWN WITH WALKER--LIVES ALONE PT WITH MULTIPLE COMPLAINTS--ALL ONGOING FOR AT LEAST 10 DAYS, WORSE FOR THE LAST 2-3 DAYS PT STATES "I'M DEHYDRATED" "I CAN'T EAT OR DRINK ANYTHING" FOR THE LAST 10 DAYS C/O NAUSEA, NO VOMITING HAD BM 2 DAYS AGO--HAS CHRONIC CONSTIPATION AND TAKES LACTULOSE C/O FEELING DIZZY AND WEAK STATES SHE IS VERY SHORT OF BREATH WITH EXERTION NO CHEST PAIN NO FEVER NO COUGH NO URINARY SYMPTOMS NO BACK PAIN STATES SHE WENT TO [facility] 10 DAYS AGO FOR THESE SYMPTOMS--WAS ALSO HAVING RIGHT LOWER ABDOMINAL PAIN AT THAT TIME WELL STATES HER BP WAS VERY HIGH--200 SYSTOLIC STATES SHE WAS DX WITH UTI AND GIVEN RX FOR AN UNKNOWN ANTIBIOTIC STATES SHE IS STILL HAVING RIGHT LOWER ABDOMINAL PAIN, BUT IS NOT BAD--IS CONSTANT MILD ACHE STATES 4-5 DAYS LATER, SHE WAS NOT BETTER AND WAS GETTING WORSE, SO SHE WENT BACK TO [facility], AND BLOOD PRESSURE WAS STILL ELEVATED WAS TOLD TO FOLLOW UP WITH DR. RAMESH AND DR. DUDLEY STATES THAT DR. GOMEZ ORDERED AT CT SCAN OF HER CHEST AND ABDOMEN . STATES IT SHOWED DIVERTICULITIS, HIATAL HERNIA AND ULCER. WAS DONE AT [facility] STATES DR DUDLEY STARTED HER ON [place] STATES DR. RAMESH THEN DOUBLED THE NORVASC. STATES TODAY HER BP WAS 150/101--HAS CLONIDINE THAT SHE IS TO TAKE PRN IF BLOOD PRESSURE IS OVER 160 SYSTOLIC, SO HAS NOT TAKEN ANY TODAY PT STATES SHE IS SCHEDULED TO HAVE AND ECHOCARDIOGRAM TOMORROW AND A CHEMICAL STRESS TEST ON WEDNESDAY BY DR. DUDLEY ON PREVIOUS VISITS HERE, SHE HAS ALSO COMPLAINED OF BEING WEAK AND DIZZY PCP: DR. 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 DUDLEY Allergies and Home Medications Allergies Coded Allergies: Penicillins (Verified Allergy, Unknown, 10/01/19) Home Medications Amlodipine Besylate 5 Mg Tablet, 10 MG PO DAILY, (Reported) TAKES 2 (5MG) TABS Aspirin 81 Mg Tablet., 81 MG PO DAILY, (Reported) Benazepril HCl 40 Mg Tab, 40 MG PO DAILY, (Reported) Brimonidine Tartrate/Timolol 5 Ml Drops, 1 DROP OS BID, (Reported) Clonidine HCl 0.1 Mg Tablet, 0.1 MG PO DAILY PRN for BP OVER 160, (Reported) Clotrimazole 15 Gm Cream..g., 1 APPLIC TOP DAILY PRN for RASH, (Reported) Cyanocobalamin 1,000 Mcg/Ml Inj, 1,000 MCG INJ MONTHLY, (Reported) Docusate Sodium 100 Mg Capsule, 100 MG PO DAILY PRN for CONSTIPATION-1ST LINE, (Reported) Lactulose 10 Gm/15 Ml Solution, 15 ML PO DAILY PRN for CONSTIPATION-3RD LINE, (Reported) Metoprolol Succinate 25 Mg Tab.er.24h, 25 MG PO 1900, (Reported) Ondansetron HCl 4 Mg Tablet, 0.4 MG PO TID PRN for NAUSEA/VOMITING-1ST LINE, (Reported) Pantoprazole Sodium 40 Mg Tablet.dr, 40 MG PO 1900, (Reported) Patient Home Medication List Home Medication List Reviewed: Yes Review of Systems Review of Systems Constitutional: see HPI; No chills, No diaphoresis; dizziness; No fever; malaise, weakness EENTM: no symptoms reported; No nose congestion, No throat pain Respiratory: see HPI; No cough; dyspnea on exertion, short of breath; No wheezing Cardiovascular: see HPI; No chest pain, No edema, No palpitations, No syncope Gastrointestinal: see HPI, abdominal pain; No diarrhea; loss of appetite, nausea; No vomiting Genitourinary: no symptoms reported Musculoskeletal: no symptoms reported; No back pain Skin: no symptoms reported Psychiatric/Neurological: Anxiety Hematologic/Lymphatic: No Symptoms Reported Immunological/Allergic: no symptoms reported Past Kojtvst-Scgcii-Cvhdtj Hx Past Med/Social Hx: Reviewed and Corrections made Patient Social History 2nd Hand Smoke Exposure: No Recent Foreign Travel: No Contact w/Someone Who Travel: No Recent Hopitalizations: No Immunizations Up To Date Tetanus Booster (TDap): More than 5yrs PED Vaccines UTD: Yes Date of Pneumonia Vaccine: Aug 20, 2012 Date of Influenza Vaccine: Dec 27, 2017 Seasonal Allergies Seasonal Allergies: No Past Medical History Surgeries: Yes (CATARACTS;EGD'S/COLONOSCOPIES; R WRIST FX/EXTERNAL FIXATOR;) Adenoidectomy, Appendectomy, Eye Surgery, Gallbladder, Hysterectomy, Orthopedic, Parathyroidectomy, Tonsillectomy Respiratory: No Cardiac: Yes (IRREGULAR HEART BEAT- irregular ekg) High Cholesterol, Hypertension, Irregular Heartbeat Neurological: No 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 Sexually Transmitted Disease: No HIV/AIDS: No Genitourinary: No Gastrointestinal: Yes Gastroesophageal Reflux, Chronic Constipation, Diverticulosis, Hiatal Hernia, Ulcer Musculoskeletal: Yes (R WRIST FX/EXTERNAL FIXATOR 08/2016;R WRIST FX -NO SURGERY) Arthritis, Fractures Endocrine: Yes Parathyroid Disease HEENT: Yes Cataract, Glaucoma Loss of Vision: Denies Hearing Impairment: Denies Cancer: No Psychosocial: No Integumentary: No Blood Disorders: No Adverse Reaction/Blood Tranf: No Family Medical History Completed stroke Hypertension Myocardial infarction PSH: -EGD'S--02/2018--ULCERS/GASTRIC EROSIONS; LAST ONE 04/2018--HEALED ULCERS -COLONOSCOPIES--LAST ONE 02/2018--DIVERTICULAR DISEASE Physical Exam Vital Signs Vital Signs - First Documented 10/01/19 10/01/19 14:08 20:00 Temp 36.4 Pulse 79 Resp 20 B/P (MAP) 193/89 (123) Pulse Ox 97 O2 Delivery Room Air Capillary Refill : Height, Weight, BMI Height: 5'2.00" Weight: 188lbs. 1.6oz. 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 II- XII Norm as Tested, Other (ANXIOUS) Skin: Normal Color, Warm/Dry Focused Exam Lactate Level 10/01/19 13:50: Lactic Acid Level 2.62*H 10/01/19 16:25: Lactic Acid Level 1.20 Lactic Acid Level Progress/Results/Core Measures Suspected Sepsis SIRS Temperature: Pulse: Respiratory Rate: Laboratory Tests 10/01/19 13:50: White Blood Count 10.1 7/13/20 04:42: White Blood Count 8.7 Blood Pressure / Mean: 10/01/19 13:50: Lactic Acid Level 2.62*H 10/01/19 16:25: Lactic Acid Level 1.20 Laboratory Tests 10/01/19 13:50: Creatinine 0.68, INR Comment 1.1, Platelet Count 211, Total Bilirubin 1.4H 10/02/19 04:42: Creatinine 0.70, Platelet Count 197, Total Bilirubin 1.3H Results/Orders Lab Results Laboratory Tests Test 10/01/19 13:50 10/01/19 14:00 10/01/19 16:25 10/01/19 22:35 Range/Units White Blood Count 10.1 4.3-11.0 10^3/uL Red Blood Count 4.89 4.35-5.85 10^6/uL Hemoglobin 15.4 11.5-16.0 G/DL Hematocrit 43 35-52 % Mean Corpuscular Volume 87 80-99 FL Mean Corpuscular Hemoglobin 32 25-34 PG Mean Corpuscular Hemoglobin Concent 36 32-36 G/DL Red Cell Distribution Width 14.0 10.0-14.5 % Platelet Count 211 130-400 10^3/uL Mean Platelet Volume 9.6 7.4-10.4 FL Neutrophils (%) (Auto) 69 42-75 % Lymphocytes (%) (Auto) 19 12-44 % Monocytes (%) (Auto) 9 0-12 % Eosinophils (%) (Auto) 3 0-10 % Basophils (%) (Auto) 0 0-10 % Neutrophils # (Auto) 7.0 1.8-7.8 X 10^3 Lymphocytes # (Auto) 1.9 1.0-4.0 X 10^3 Monocytes # (Auto) 0.9 0.0-1.0 X 10^3 Eosinophils # (Auto) 0.3 0.0-0.3 10^3/uL Basophils # (Auto) 0.0 0.0-0.1 10^3/uL Prothrombin Time 14.7 12.2-14.7 SEC INR Comment 1.1 0.8-1.4 Activated Partial Thromboplast Time 35 24-35 SEC Sodium Level 136 135-145 MMOL/L Potassium Level 3.3 L 3.6-5.0 MMOL/L Chloride Level 102 98-107 MMOL/L Carbon Dioxide Level 19 L 21-32 MMOL/L Anion Gap 15 H 5-14 MMOL/L Blood Urea Nitrogen 6 L 7-18 MG/DL Creatinine 0.68 0.60-1.30 MG/DL Estimat Glomerular Filtration Rate > 60 BUN/Creatinine Ratio 9 Glucose Level 134 H 70-105 MG/DL Lactic Acid Level 2.62 *H 1.20 0.50-2.00 MMOL/L Calcium Level 8.6 8.5-10.1 MG/DL Corrected Calcium 8.9 8.5-10.1 MG/DL Magnesium Level 1.7 1.6-2.4 MG/DL Total Bilirubin 1.4 H 0.1-1.0 MG/DL Aspartate Amino Transf (AST/SGOT) 18 5-34 U/L Alanine Aminotransferase (ALT/SGPT) 10 0-55 U/L Alkaline Phosphatase 75 40-136 U/L Total Creatine Kinase 20 L 29-168 U/L Creatine Kinase MB 0.9 <6.6 NG/ML Myoglobin 32.9 10.0-92.0 NG/ML Troponin I < 0.028 < 0.028 0.048 H <0.028 NG/ML B-Type Natriuretic Peptide 152.9 H <100.0 PG/ML Total Protein 6.9 6.4-8.2 GM/DL Albumin 3.6 3.2-4.5 GM/DL Amylase Level 23 L 25-125 U/L Lipase 7 L 8-78 U/L TSH [place] Testing 0.96 0.35-4.94 UIU/ML Urine Color YELLOW Urine Clarity CLEAR Urine pH 7.5 5-9 Urine Specific [place] 1.015 L 1.016-1.022 Urine Protein TRACE H NEGATIVE Urine Glucose (UA) NEGATIVE NEGATIVE Urine Ketones NEGATIVE NEGATIVE Urine Nitrite NEGATIVE NEGATIVE Urine Bilirubin NEGATIVE NEGATIVE Urine Urobilinogen 2.0 < = 1.0 MG/DL Urine Leukocyte Esterase NEGATIVE NEGATIVE Urine RBC (Auto) TRACE-L NEGATIVE Urine RBC NONE /HPF Urine WBC NONE /HPF Urine Squamous Epithelial Cells NONE /HPF Urine Crystals NONE /LPF Urine Bacteria NEGATIVE /HPF Urine Casts NONE /LPF Urine Mucus NEGATIVE /LPF Urine Culture Indicated NO Test 10/02/19 04:42 10/02/19 10:58 Range/Units White Blood Count 8.7 4.3-11.0 10^3/uL Red Blood Count 4.55 4.35-5.85 10^6/uL Hemoglobin 14.0 11.5-16.0 G/DL Hematocrit 40 35-52 % Mean Corpuscular Volume 88 80-99 FL Mean Corpuscular Hemoglobin 31 25-34 PG Mean Corpuscular Hemoglobin Concent 35 32-36 G/DL Red Cell Distribution Width 14.1 10.0-14.5 % Platelet Count 197 130-400 10^3/uL Mean Platelet Volume 9.1 7.4-10.4 FL Neutrophils (%) (Auto) 68 42-75 % Lymphocytes (%) (Auto) 17 12-44 % Monocytes (%) (Auto) 11 0-12 % Eosinophils (%) (Auto) 3 0-10 % Basophils (%) (Auto) 0 0-10 % Neutrophils # (Auto) 5.9 1.8-7.8 X 10^3 Lymphocytes # (Auto) 1.5 1.0-4.0 X 10^3 Monocytes # (Auto) 1.0 0.0-1.0 X 10^3 Eosinophils # (Auto) 0.3 0.0-0.3 10^3/uL Basophils # (Auto) 0.0 0.0-0.1 10^3/uL Sodium Level 137 135-145 MMOL/L Potassium Level 3.2 L 3.6-5.0 MMOL/L Chloride Level 104 98-107 MMOL/L Carbon Dioxide Level 23 21-32 MMOL/L Anion Gap 10 5-14 MMOL/L Blood Urea Nitrogen 5 L 7-18 MG/DL Creatinine 0.70 0.60-1.30 MG/DL Estimat Glomerular Filtration Rate > 60 BUN/Creatinine Ratio 7 Glucose Level 118 H 70-105 MG/DL Calcium Level 7.9 L 8.5-10.1 MG/DL Corrected Calcium 8.7 8.5-10.1 MG/DL Total Bilirubin 1.3 H 0.1-1.0 MG/DL Aspartate Amino Transf (AST/SGOT) 15 5-34 U/L Alanine Aminotransferase (ALT/SGPT) 9 0-55 U/L Alkaline Phosphatase 60 40-136 U/L Troponin I 0.094 H 0.061 H <0.028 NG/ML Total Protein 5.5 L 6.4-8.2 GM/DL Albumin 3.0 L 3.2-4.5 GM/DL Micro Results Microbiology 10/01/19 Blood Culture - Preliminary, Resulted No growth 10/01/19 Blood Culture - Preliminary, Resulted No growth My Orders Orders - MELANIE WEST DO Ed Iv/Invasive Line Start (10/01/19 13:39) Ekg Tracing (10/01/19 13:39) Catheter(Urinary) Insert & Ass 03,15 (10/01/19 13:39) Monitor-Rhythm Ecg Trace Only (10/01/19 13:39) Chest 1 View, Ap/Pa Only (10/01/19 13:39) Amylase (10/01/19 13:39) BNP (10/01/19 13:39) Cbc With Automated Diff (10/01/19 13:39) Comprehensive Metabolic Panel (10/01/19 13:39) Creatine Kinase (10/01/19 13:39) Creatine Kinase Mb (10/01/19 13:39) Lipase (10/01/19 13:39) Magnesium (10/01/19 13:39) Protime With Inr (10/01/19 13:39) Partial Thromboplastin Time (10/01/19 13:39) Thyroid Analyzer (10/01/19 13:39) Ua Culture If Indicated (10/01/19 13:39) Myoglobin Serum (10/01/19 13:39) Troponin I (10/01/19 13:39) Ed Iv/Invasive Line Start (10/01/19 13:39) Lactated Ringers (Lr 1000 Ml Iv Solution (10/01/19 13:39) Ondansetron Injection (Zofran Injectio (10/01/19 13:45) Lactic Acid Analyzer (10/01/19 13:52) Blood Culture (10/01/19 13:52) Ct Head Wo-R/O Stroke (10/01/19 14:31) Ct Starla Chest/Noang Abd-Pelv W (10/01/19 14:31) Iohexol Injection (Omnipaque 350 Mg/Ml 1 (10/01/19 14:45) Received Contrast (Hold Metformin- Contr (10/01/19 14:45) Ns (Ivpb) (Sodium Chloride 0.9% Ivpb Bag (10/01/19 14:45) Hydralazine Injection (Apresoline Inject (10/01/19 16:00) Potassium Chloride (Tablet) (Klor Con Ta (10/01/19 16:00) Troponin I (10/01/19 16:00) Ekg Tracing (10/01/19 16:00) Scopolamine Patch (Transderm-Scop Patch) (10/01/19 18:15) Medications Given in ED Vital Signs/I&O 10/02/19 10/02/19 10/02/19 10/02/19 18:44 19:00 19:59 20:00 Temp 37.0 Pulse 79 80 83 Resp 20 18 B/P (MAP) 114/57 (76) 106/59 (75) Pulse Ox 94 95 O2 Delivery Room Air Room Air Room Air 10/03/19 10/03/19 10/03/19 00:00 01:00 04:12 Temp 36.8 36.4 Pulse 57 59 62 Resp 21 20 B/P (MAP) 134/63 (86) 142/73 (96) Pulse Ox 94 96 O2 Delivery Room Air Room Air Capillary Refill : Progress Note : Progress Note O2 SAT 98% ON ROOM AIR ON ARRIVAL, DESPITE WALKING INTO ER ON HER OWN. INITIAL BP 193/89--QUICKLY DOWN TO 150'S AT REST, WITHOUT TREATMENT DYSPNEA IMPROVED SIGNIFICANTLY AFTER SHE GOT ONTO ER CART AND WAS AT REST FOR SHORT PERIOD OF TIME NAUSEA RESOLVED WITH ZOFRAN--STATES SHE IS FEELING MUCH BETTER RESTED QUIETLY FOR REMAINDER OF ER STAY NO COMPLAINTS PT HELD FOR REPEAT EKG AND TROPONIN AFTER 3 HOURS. PT REMAINS SYMPTOM-FREE AT THIS TIME 1805--ATTEMPTING TO DISMISS PT, PT BECAME WEAK AND UNABLE TO STAND FOR TRANSFER TO WHEELCHAIR. STATES SHE DOES NOT FEEL COMFORTABLE GOING HOME VITALS REMAIN STABLE. DID HAVE DROP IN BP FROM 170'S SYSTOLIC TO 150'S SYSTOLIC AFTER SHE WAS PLACED BACK ON ER CART ECG Initial ECG Impression Date: Oct 01, 2019 Initial ECG Impression Time: 14:39 Initial ECG Rate: 73 Initial ECG Rhythm: Normal Sinus (IVCD) Initial ECG Impression: Nonspecific Changes EKG : EKG Time: 16:15 Rate: 76 Rhythm: Normal Sinus (LBBB) ECG Comparisson: Unchanged Diagnostic Imaging Comments CXR--PER RADIOLOGIST REPORT AT 1445 Impression: 1. Cardiomegaly without sara failure. 2. Nonspecific infiltrates within the right lung base as described. CT HEAD--PER RADIOLOGIST REPORT AT 1543 Discussion: No acute intracranial hemorrhage, mass, midline shift or hydrocephalus. White matter hypoattenuation is nonspecific, greater than expected for age related chronic small vessel ischemic disease, stable. The ventricles and sulci are normal in size and configuration for age. The orbits, sinuses, mastoid air cells and calvarium are unremarkable. Impression: No acute intracranial abnormality identified. CT ANGIOGRAM CHEST/ABDOMEN AND PELVIS--PER RADIOLOGIST REPORT AT 1543 CTA chest: No pulmonary embolus identified. The thoracic aorta is normal in caliber and configuration. Mild cardiomegaly. No pleural or pericardial fluid. Atelectasis noted within the lung bases. No focal consolidation or suspicious pulmonary lesion. No adenopathy identified. No acute osseous abnormality identified. CT abdomen/pelvis: Moderate hiatal hernia. The gallbladder is surgically absent. Fatty atrophy of the pancreas is noted. Spleen is normal in size. The adrenal glands are unremarkable. Cysts are noted within the kidneys. No hydronephrosis. The aorta is normal in caliber and contains mild atherosclerotic plaque. Urinary bladder is decompressed by a Mas catheter. Uterus is surgically absent. Mild diverticulosis with no secondary evidence for diverticulitis. No constipation. No abnormal small bowel loops are identified. No evidence for appendicitis. No ascites or pathologically enlarged lymph node is identified. Severe L5 compression fracture, age indeterminate. No retropulsion. Impression: 1. No acute abnormality identified within the chest, abdomen or pelvis. Chronic changes as discussed. 2. Age-indeterminate severe L5 compression fracture. Reviewed: Reviewed by Nv Departure Communication (Admissions) [id number]--SPOKE WITH DR. MORENO, HOSPITALIST, ACCEPTS PT FOR ADMIT. Impression Primary Impression: Weakness generalized Additional Impressions: HTN (hypertension) Hypokalemia Dyspnea on exertion Disposition: ADMITTED INPATIENT Condition: Stable Admissions Decision to Admit Reason: Admit from ER (Trauma) Decision to Admit/Date: Oct 01, 2019 Time/Decision to Admit Time: 18:05 Departure-Patient Inst. Referrals: MARIA ELENA DUDLEY MD, WILLIAM J DO (PCP/Family) Primary Care Physician MELANIE WEST DO Oct 01, 2019 14:02
[2019-10-01 14:12] LABS: BASOPHILS % (AUTO) 0 % (0-10); EOSINOPHILS # (AUTO) 0.3 10^3/uL (0.0-0.3); EOSINOPHILS % (AUTO) 3 % (0-10); HEMATOCRIT 43 % (35-52); HEMOGLOBIN 15.4 G/DL (11.5-16.0); LYMPHOCYTES # (AUTO) 1.9 X 10^3 (1.0-4.0); LYMPHOCYTES % (AUTO) 19 % (12-44); MEAN CORPUSCULAR HEMOGLOBIN 32 PG (25-34); MEAN CORPUSCULAR HGB CONC 36 G/DL (32-36); MEAN CORPUSCULAR VOLUME 87 FL (80-99); MEAN PLATELET VOLUME 9.6 FL (7.4-10.4); MONOCYTES # (AUTO) 0.9 X 10^3 (0.0-1.0); MONOCYTES % (AUTO) 9 % (0-12); NEUTROPHILS % (AUTO) 69 % (42-75); PLATELET COUNT 211 10^3/uL (130-400); WHITE BLOOD COUNT 10.1 10^3/uL (4.3-11.0)
[2019-10-01 14:14] LABS: BILIRUBIN,URINE NEGATIVE (NEGATIVE); CLARITY,URINE CLEAR; COLOR,URINE YELLOW; GLUCOSE, URINE (UA) NEGATIVE (NEGATIVE); KETONES,URINE NEGATIVE (NEGATIVE); LEUKOCYTE ESTERASE ,URINE NEGATIVE (NEGATIVE); NITRITE,URINE NEGATIVE (NEGATIVE); PH,URINE 7.5 (5-9); PROTEIN,URINE TRACE (NEGATIVE)
[2019-10-01 14:20] LABS: ALBUMIN 3.6 GM/DL (3.2-4.5); CHLORIDE 102 MMOL/L (98-107); POTASSIUM 3.3 MMOL/L (3.6-5.0); SODIUM 136 MMOL/L (135-145)
[2019-10-01 14:22] LABS: AMYLASE 23 U/L (25-125); CALCIUM 8.6 MG/DL (8.5-10.1)
[2019-10-01 14:23] LABS: GLUCOSE 134 MG/DL (70-105); TOTAL PROTEIN 6.9 GM/DL (6.4-8.2)
[2019-10-01 14:24] LABS: CARBON DIOXIDE 19 MMOL/L (21-32)
[2019-10-01 14:25] LABS: BILIRUBIN,TOTAL 1.4 MG/DL (0.1-1.0)
[2019-10-01 14:26] LABS: ALKALINE PHOSPHATASE 75 U/L (40-136); CREATININE SERUM 0.68 MG/DL (0.60-1.30); GFR ESTIMATED > 60
[2019-10-01 14:27] LABS: BUN/CREATININE RATIO 9
[2019-10-01 14:28] LABS: BACTERIA,URINE NEGATIVE /HPF
[2019-10-01 14:29] LABS: ALANINE AMINOTRANSFERASE 10 U/L (0-55)
[2019-10-01 14:30] LABS: MAGNESIUM 1.7 MG/DL (1.6-2.4)
[2019-10-01 14:31] LABS: CREATINE KINASE 20 U/L (29-168); LIPASE 7 U/L (8-78)
[2019-10-01 14:32] LABS: INR 1.1 (0.8-1.4); PROTHROMBIN TIME PATIENT 14.7 SEC (12.2-14.7)
[2019-10-01 14:38] LABS: CREATINE KINASE MB 0.9 NG/ML (<6.6)
--- NOTE | 2019-10-01 14:39 | Diagnostic Imaging Report ---
Indication: Abdominal pain with nausea and vomiting. Comparison: 05/08/2018. Discussion: Single portable upright view of the chest was obtained. Cardiomegaly is again noted. Mild central venous congestion. No sara failure. Patchy infiltrate within the right lung base is nonspecific and could be seen with atelectasis, pneumonia, artifact from overlying rib ends. No pleural fluid or pneumothorax. No osseous abnormality. Impression: 1. Cardiomegaly without sara failure. 2. Nonspecific infiltrates within the right lung base as described. Dictated by: Dictated on workstation # [id number]
[2019-10-01] MEDS ORDERED: IOHEXOL 350 MG/ML 100 ML (OMNIPAQUE 350) VIAL IV ONE (14:45)
[2019-10-01] MEDS ORDERED: HOLD METFORMIN - RECEIVED CONTRAST 20 ML VIAL IV SCH (14:45)
[2019-10-01] MEDS ORDERED: NS 100 ML (IVPB) BAG IV ONE (14:45)
[2019-10-01 14:51] LABS: TSH (THYROID ANALYZER) 0.96 UIU/ML (0.35-4.94)
--- NOTE | 2019-10-01 15:10 | NUR ---
PATIENT RETURNS FROM RAD AT THIS TIME. INTRODUCED SELF TO PATIENT, MONITORING RESUMED, IVF INFUSING, ALERT AND ORIENTEDX4, CALL LIGHT IN REACH, THIS RN WILL CONTINUE TO MONITOR PATIENT.
--- NOTE | 2019-10-01 15:24 | Diagnostic Imaging Report ---
Procedure: CT head w/o, r/o stroke. Technique: Multiple contiguous axial images were obtained through the brain without the use of intravenous contrast. Auto Exposure Controls were utilized during the CT exam to meet ALARA standards for radiation dose reduction. Indication: Altered mental status with vomiting for 10 days. Comparison: 09/11/2016. Discussion: No acute intracranial hemorrhage, mass, midline shift or hydrocephalus. White matter hypoattenuation is nonspecific, greater than expected for age related chronic small vessel ischemic disease, stable. The ventricles and sulci are normal in size and configuration for age. The orbits, sinuses, mastoid air cells and calvarium are unremarkable. Impression: No acute intracranial abnormality identified. Dictated by: Dictated on workstation # [id number]
--- NOTE | 2019-10-01 15:41 | Diagnostic Imaging Report ---
Procedure: CTA chest, abdomen and pelvis. Technique: Thin axial sections through the chest, abdomen and pelvis were obtained following intravenous contrast bolus. Multiplanar MIP images were reconstructed and reviewed. All CT scans use one or more of the following dose optimizing techniques: automated exposure control, MA and/or KvP adjustment based on patient size and exam type or iterative reconstruction. Indication: Chest and abdominal pain with nausea and vomiting for 10 days. Comparison: None. Discussion: CTA chest: No pulmonary embolus identified. The thoracic aorta is normal in caliber and configuration. Mild cardiomegaly. No pleural or pericardial fluid. Atelectasis noted within the lung bases. No focal consolidation or suspicious pulmonary lesion. No adenopathy identified. No acute osseous abnormality identified. CT abdomen/pelvis: Moderate hiatal hernia. The gallbladder is surgically absent. Fatty atrophy of the pancreas is noted. Spleen is normal in size. The adrenal glands are unremarkable. Cysts are noted within the kidneys. No hydronephrosis. The aorta is normal in caliber and contains mild atherosclerotic plaque. Urinary bladder is decompressed by a Mas catheter. Uterus is surgically absent. Mild diverticulosis with no secondary evidence for diverticulitis. No constipation. No abnormal small bowel loops are identified. No evidence for appendicitis. No ascites or pathologically enlarged lymph node is identified. Severe L5 compression fracture, age indeterminate. No retropulsion. Impression: 1. No acute abnormality identified within the chest, abdomen or pelvis. Chronic changes as discussed. 2. Age-indeterminate severe L5 compression fracture. Dictated by: Dictated on workstation # [id number]
[2019-10-01] MEDS ORDERED: KCL 10 MEQ TAB (MICRO K) PO ONE (16:00)
[2019-10-01] MEDS ORDERED: hydrALAZINE (APESOLINE) 20 MG/ML VIAL IV ONE (16:00)
[2019-10-01] MEDS ORDERED: SCOPOLAMINE 1.5 MG (TRANSDERM-SCOP) PATCH TD ONE (18:15)
--- OUTSIDE RECORDS SUMMARY | 2019-10-01 18:33 | XMS REPORT | Clinical Summary ---
Author Author [facility] Organization [facility] Address Unknown Phone Unavailable Care Team Providers Care Natural Gas Inspector Name Role Phone Elvira Valerio MD Unavailable Tera Alicea MD PCP Nohemi Perea RN Unavailable Unavailable Elli Negrete RN Unavailable Unavailable Heather Trevino RN Unavailable Unavailable Source Comments Some departments are not documenting in the electronic medical record. If you d o not see the information that you expected, contact Release of Information in [facility] [employer] Information Management department at [phone] for further assistan ce in locating additional records.[facility] Allergies Comments Active Allergy Reactions Severity Noted [...] Used Never Smoker Smokeless Tobacco: Never Used Drinks/Week oz/Week Comments Alcohol Use No Sex Assigned at Date Recorded Not on file Industry Job Start Date Occupation Not on file Not on file Not on file Travel End Travel History Travel Start No recent travel history available. 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 Body Mass Index Plan of Treatment Health Maintenance Due Date Last Done Comments MEDICARE ANNUAL WELLNESS 1935 VISIT DTAP/TDAP VACCINES (1 - 12/18/1953 Tdap) PHYSICAL (COMPREHENSIVE) 12/18/1953 EXAM SHINGLES RECOMBINANT 12/18/1985 VACCINE (1 of 2) OSTEOPOROSIS 12/18/2000 SCREENING/MONITORING PNEUMONIA (PPSV23) 12/18/2000 VACCINE (1 of 1 - PPSV23) INFLUENZA VACCINE 12/21/2019 Results Not on filefrom Last 3 Months Insurance Type Payer Benefit Subscriber ID Effective Phone Address Plan / Dates Group Medicare MEDICARE MEDICARE xxxxxxxxxx 2000-P PART A AND resent B Medicare [place] xxxxxxxxxxxx 2016-P SUPPLEMENT resent [address] [place] (Home) [place] [id number] 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
--- OUTSIDE RECORDS SUMMARY | 2019-10-01 18:35 | XMS REPORT | Continuity of Care Document ---
Author Organization Unknown Address Unknown Phone Unavailable Allergies Active Description Code Type Severity Reaction Onset Reported/Identified Relationship to Patient Clinical Status Yes NO KNOWN DRUG ALLERGIES UNKNOWN NO KNOWN DRUG ALLERG Yes NO KNOWN DRUG ALLERGIES UNKNOWN UNKNOWN Yes No Known Drug Allergies [id number] Drug Allergy Unknown N/A 05/09/2018 Medications Medication Packaging Start Date St op Date Route Dosage Sig ACETAMINOPHEN ORAL TABLET 325mg(Tylenol) MG 05/10/2018 05/10/2018 PRN ONCE ALPRAZOLAM TAB 0.25 MG (XANAX) MG 05/10/2018 05/20/2018 PRN Q6H Ondansetron 4mg oral DissolveTab (Zofran) MG 05/10/2018 06/09/2018 PRN Q6H CLONIDINE TAB 0.1 MG (CATAPRES) MG 05/10/2018 05/17/2018 PRN Q6H ACETAMINOPHEN SUPPOS SUP 650 MG (TYLENOL) MG 05/10/2018 05/17/2018 PRN Q4H ONDANSETRON VIAL INJ 4 MG/2CC (ZOFRAN 2CC VIAL) MG 05/10/2018 05/17/2018 PRN Q4H CALCIUM CARBONATE TAB 500 MG (TUMS) MG 05/10/2018 05/17/2018 PRN Q6H DIPHENHYDRAMINE CAP 25 MG (BENADRYL) MG 05/10/2018 05/17/2018 PRN Q6H IPRATROPIUM/ALBUTEROL INH SO LN (DUO-NEB INH SOLN) MLS 05/10/2018 06/09/2018 Q4H&0200,0300,0600,1000,1400 ,1800,2200 HYDROCODONE/APAP 5MG/325MG T AB 5 MG/325MG (SRAVAN-TAB 5/325) TAB 05/10/2018 05/20/2018 PRN Q6H ALUM/MAG/SIMETH 30CC LIQ (MYLANTA PLUS) cc 05/10/2018 05/20/2018 PRN Q4H GUAIFENESIN - DM LIQ (ROBITUSSIN DM) MLS 05/10/2018 05/17/2018 PRN Q4H METHYLPREDNISOLONE VIAL INJ 40 MG/CC (SOLU-MEDROL VIAL) MG 05/10/2018 05/13/2018 Q12H&0600,1800 BENZONATATE CAP 100 MG (TESSALON) MG 05/10/2018 06/09/2018 PRN TID Docusate sodium 100mg oral capsule (COLACE ) 05/10/2018 06/09/2018 PRN BID LACTULOSE SYRUP LIQ 20 GM/30 CC (CHRONULAC SYRUP) GM 05/10/2018 06/09/2018 BID&0800,2000 METOCLOPRAMIDE TAB 5 MG (REGLAN) MG 05/10/2018 05/24/2018 TID&0800,1400,2000 METOPROLOL XR TAB 25 MG (TOPROL XL) MG 05/10/2018 06/08/2018 QHS&2100 LATANOPROST OPHTH SOLUTION L IQ 0.005 % (XALATAN) drops 05/10/2018 06/08/2018 QHS&2100 PANTOPRAZOLE TAB 40 MG (PROTONIX) MG 05/10/2018 06/08/2018 QHS&2100 MELATONIN TAB 3 MG (MELATONIN) MG 05/10/2018 05/16/2018 PRN QHS BISACODYL TAB 5 MG (DULCOLAX) MG 05/11/2018 05/17/2018 PRN Daily BENAZEPRIL TAB 20 MG (LOTENSIN) MG 05/11/2018 06/09/2018 Daily&0900 POLYETHYLENE GLYCOL POWDER U D PWD (MIRALAX 17GM UNIT DOSE PAKS) gm 05/11/2018 05/17/2018 Daily&0900 BISACODYL SUPPOS 10 MG (DULCOLAX SUPPOS) MG 05/11/2018 05/17/2018 PRN Daily MILK OF MAGNESIA LIQ ml 05/11/2018 06/09/2018 PRN Daily IRON SUCROSE INJECTION INJ 20 MG/CC (VENOF ER) MG 05/12/2018 05/20/2018 Q48H&0900 METHYLPREDNISOLONE VIAL INJ 40 MG/CC (DEPO-MEDROL VIAL) MG 05/13/2018 05/14/2018 Daily&0900 METHYLPREDNISOLONE VIAL INJ 40 MG/CC (SOLU-MEDROL VIAL) MG 05/14/2018 05/14/2018 ONCE&1104 CALMOSEPTINE OINT TUBE (RISAMINE OINT) charleen 05/14/2018 05/21/2018 PRN QID ONDANSETRON VIAL INJ 4 MG/2CC (ZOFRAN 2CC VIAL) MG 09/20/2019 09/20/2019 ONCE&2228 NORMAL SALINE 1000CC IV BAG INJ 0.9 % (NS 1000CC IV BAG) ml 09/20/2019 09/20/2019 ONCE&2228 LORAZEPAM 1CC VIAL INJ 2 MG/CC (ATIVAN VIA L) MG 09/20/2019 09/20/2019 ONCE&2300 CLONIDINE TAB 0.1 MG (CATAPRES) MG 09/20/2019 09/20/2019 ONCE&2324 CEFTRIAXONE PREMIX IV BAG IV 1 GM/50CC (ROCEPHIN PREMIX IV BAG) GM 09/20/2019 09/20/2019 ONCE&2328 CLONIDINE TAB 0.1 MG (CATAPRES) MG 09/22/2019 09/22/2019 ONCE&1503 Problems Date Dx Coded Attending Type Code Diagnosis Diagnosed By 01/03/2010 Ot 272.4 01/03/2010 Ot 300.00 01/03/2010 Ot 401.9 01/03/2010 Ot 786.59 02/01/2012 Ot 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 4 HYPERLIPIDEMIA NEC/NOS 12/06/2012 MARIA ELENA DUDLEY MD Ot 273. 8 DIS PLAS PROTEIN MET NEC 12/06/2012 MARIA ELENA DUDLEY MD Ot 275. 2 DIS MAGNESIUM METABOLISM 12/06/2012 MARIA ELENA DUDLEY MD Ot 276. 1 HYPOSMOLALITY 12/06/2012 MARIA ELENA DUDLEY MD Ot 285. 9 ANEMIA NOS 12/06/2012 MARIA ELENA DUDLEY MD Ot 401. 9 HYPERTENSION NOS 12/06/2012 MARIA ELENA DUDLEY MD Ot 530. 81 ESOPHAGEAL REFLUX 12/06/2012 MARIA ELENA DUDLEY MD Ot 553. 20 VENTRAL HERNIA NOS 12/06/2012 MARIA ELENA DUDLEY MD Ot 782. 4 JAUNDICE NOS 12/06/2012 MARIA ELENA DUDLEY MD Ot 786. 09 RESPIRATORY ABNORM NEC 12/06/2012 MARIA ELENA DUDLEY MD Ot 786. 59 CHEST PAIN NEC 12/06/2012 MARIA ELENA DUDLEY MD Ot 787. 02 NAUSEA ALONE 12/06/2012 MARIA ELENA DUDLEY MD Ot 794. 31 ABNORM ELECTROCARDIOGRAM 03/12/2014 MARIA ELENA DUDLEY MD Ot 272. 4 03/12/2014 MARIA ELENA DUDLEY MD Ot 396. 3 03/12/2014 MARIA ELENA DUDLEY MD Ot 397. 0 03/12/2014 MARIA ELENA DUDLEY MD Ot 401. 9 03/12/2014 MARIA ELENA DUDLEY MD Ot 782. 3 02/28/2015 Ot V72.84 02/28/2015 Ot 401.9 02/28/2015 Ot 416.8 02/28/2015 Ot 424.1 02/28/2015 Ot 428.30 02/28/2015 SERGIO HERNANDEZ MD Ot 786.50 02/28/2015 SERGIO HERNANDEZ MD Ot 794.31 02/28/2015 SERGIO HERNANDEZ MD Ot 275.2 02/28/2015 SERGIO HERNANDEZ MD Ot 276.1 02/28/2015 SERGIO HERNANDEZ MD Ot 396.3 02/28/2015 SERGIO HERNANDEZ MD Ot 397.0 02/28/2015 SERGIO HERNANDEZ MD Ot 429.3 02/28/2015 SERGIO HERNANDEZ MD Ot 786.50 02/28/2015 SERGIO HERNANDEZ MD Ot 790.5 02/28/2015 SERGIO HERNANDEZ MD Ot 794.31 02/28/2015 SERGIO HERNANDEZ MD Ot 275.2 02/28/2015 SEGRIO HERNANDEZ MD Ot 276.1 02/28/2015 SERGIO HERNANDEZ MD Ot 786.50 02/28/2015 SERGIO HERNANDEZ MD Ot 790.5 02/28/2015 SERGIO HERNANDEZ MD Ot 794.31 02/28/2015 MARIA ELENA DUDLEY MD Ot 272. 4 02/28/2015 OCTAVIA AYERS, MARIA ELENA Fitzgerald Ot 396. 3 02/28/2015 MARIA ELENA DUDLEY MD Ot 397. 0 02/28/2015 MARIA ELENA DUDLEY MD Ot 401. 9 02/28/2015 MARIA ELENA DUDLEY MD Ot 782. 3 03/21/2015 MARIA ELENA DUDLEY MD Ot E78. 2 03/21/2015 MARIA ELENA DUDLEY MD Ot I10 03/21/2015 MARIA ELENA DUDLEY MD Ot I35. 1 03/21/2015 MARIA ELENA DUDLEY MD Ot I65. 23 03/26/2015 MARIA ELENA DUDLEY MD Ot E78. 2 03/26/2015 MARIA ELENA DUDLEY MD Ot I10 03/26/2015 MARIA ELENA DUDLEY MD Ot I35. 1 03/26/2015 MARIA ELENA DUDLEY MD Ot I65. 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 4 HYPERLIPIDEMIA NEC/NOS 03/30/2016 MARIA ELENA DUDLEY MD Ot 396. 3 MITRAL/AORTIC LEAH INSUFF 03/30/2016 MARIA ELENA DUDLEY MD Ot 397. 0 TRICUSPID VALVE DISEASE 03/30/2016 MARIA ELENA DUDLEY MD Ot 401. 9 HYPERTENSION NOS 03/30/2016 MARIA ELENA DUDLEY MD Ot 782. 3 EDEMA 03/30/2016 MARIA ELENA DUDLEY MD Ot E78. 2 MIXED HYPERLIPIDEMIA 03/30/2016 MARIA ELENA DUDLEY MD Ot I10 ESSENTIAL (PRIMARY) HYPERTENSION 03/30/2016 MARIA ELENA DUDLEY MD Ot I35. 1 NONRHEUMATIC AORTIC (VALVE) INSUFFICIENC 03/30/2016 MARIA ELENA DUDLEY MD Ot I65. 23 OCCLUSION AND STENOSIS OF BILATERAL [place] 03/30/2016 [...] LO Ot I10 ESSENTIAL (PRIMARY) HYPERTENSION 03/31/2016 CAMERON-KEY PA, PURVI K Ot I35.1 NONRHEUMATIC AORTIC (VALVE) INSUFFICIENC 03/31/2016 CAMERON-KEY STARKEY PURVI Rod Ot I65.23 OCCLUSION AND STENOSIS OF BILATERAL [place] 04/22/2016 CAMERONMADHAVI JAKY, PURVI Rod Ot E78.2 MIXED HYPERLIPIDEMIA 04/22/2016 CAMERONDEVIN STARKEY PURVI Rod Ot I10 ESSENTIAL (PRIMARY) HYPERTENSION 04/22/2016 CAMERONDEVIN STARKEY PURVI Rod Ot I35.1 NONRHEUMATIC AORTIC (VALVE) INSUFFICIENC 04/22/2016 CAMERONBrockKEY JAKY PURVI Rod Ot I65.23 OCCLUSION AND STENOSIS OF BILATERAL [place] 04/29/2016 CAMERON-KEY STARKEY PURVI Rod Ot E78.2 MIXED HYPERLIPIDEMIA 04/29/2016 CAMERONDEVIN STARKEY PURVI Rod Ot I10 ESSENTIAL (PRIMARY) HYPERTENSION 04/29/2016 CAMERONMADHAVI JAKY PURVI Rod Ot I35.1 NONRHEUMATIC AORTIC (VALVE) INSUFFICIENC 04/29/2016 CAMERON-KEY STARKEY PURVI Rod Ot I65.23 OCCLUSION AND STENOSIS OF BILATERAL [place] 09/13/2016 SE JUSTICE MD, Ot E78.0 0 PURE HYPERCHOLESTEROLEMIA, UNSPECIFIED 09/13/2016 SE JUSTICE MD, Ot I10 ESSENTIAL (PRIMARY) HYPERTENSION 09/13/2016 SE JUSTICE MD Ot I51.7 CARDIOMEGALY 09/13/2016 SE JUSTICE MD Ot I95.2 HYPOTENSION DUE TO DRUGS 09/13/2016 SE JUSTICE MD Ot R42 DIZZINESS AND GIDDINESS 09/13/2016 SE [...] W/O STRIKE 09/13/2016 SE JUSTICE MD Ot Y92.[address] IN UNSP NON-INSTITUT (PRIVATE 09/13/2016 SE JUSTICE MD Ot Y99.8 OTHER EXTERNAL CAUSE STATUS 09/13/2016 SE JUSTICE MD Ot Z23 ENCOUNTER FOR IMMUNIZATION 09/13/2016 SE JUSTICE MD Ot Z79.8 2 HALFWAY (CURRENT) USE OF ASPIRIN 09/13/2016 SE JUSTICE MD Ot Z79.8 99 OTHER DIRECTOR OF CATH LAB (CURRENT) DRUG THERAPY 09/17/2016 SE JUSTICE MD, Ot E78.0 0 PURE HYPERCHOLESTEROLEMIA, UNSPECIFIED 09/17/2016 SE JUSTICE MD Ot I10 ESSENTIAL (PRIMARY) HYPERTENSION 09/17/2016 SE JUSTICE MD Ot I51.7 CARDIOMEGALY 09/17/2016 SE JUSTICE MD Ot I95.2 HYPOTENSION DUE TO DRUGS 09/17/2016 SE JUSTICE MD Ot R42 DIZZINESS AND GIDDINESS 09/17/2016 SE JUSTICE MD Ot S00.83XA CONTUSION OF OTHER PART OF HEAD, INITIAL 09/17/2016 SE JUSTICE MD Ot S52.501B UNSP FX THE LOWER END OF R RADIUS, INIT 09/17/2016 SE JUSTICE MD Ot S52.601B UNSP FX LOWER END OF RIGHT ULNA, INIT FO 09/17/2016 SE JUSTICE MD Ot W01.0XXA FALL SAME LEV FROM SLIP/TRIP W/O STRIKE 09/17/2016 SE JUSTICE MD Ot Y92.[address] [facility] NON-INSTITUT (PRIVATE 09/17/2016 SE JUSTICE MD Ot Y99.8 OTHER EXTERNAL CAUSE STATUS 09/17/2016 SE JUSTICE MD Ot Z23 ENCOUNTER FOR IMMUNIZATION 09/17/2016 SE JUSTICE MD Ot Z79.8 2 HALFWAY (CURRENT) USE OF ASPIRIN 09/17/2016 SE JUSTICE MD Ot Z79.8 99 OTHER HALFWAY (CURRENT) DRUG THERAPY 09/17/2016 SE JUSTICE MD Ot E78.0 0 PURE HYPERCHOLESTEROLEMIA, UNSPECIFIED 09/17/2016 SE JUSTICE MD Ot I10 ESSENTIAL (PRIMARY) HYPERTENSION 09/17/2016 SE JUSTICE MD Ot I51.7 CARDIOMEGALY 09/17/2016 SE JUSTICE MD [...] W/O STRIKE 09/17/2016 SE JUSTICE MD Ot Y92.[address] IN UNSP NON-INSTITUT (PRIVATE 09/17/2016 SE JUSTICE MD Ot Y99.8 OTHER EXTERNAL CAUSE STATUS 09/17/2016 SE JUSTICE MD, Ot Z23 ENCOUNTER FOR IMMUNIZATION 09/17/2016 SE JUSTICE MD Ot Z79.8 2 DIRECTOR OF CATH LAB (CURRENT) USE OF ASPIRIN 09/17/2016 SE JUSTICE MD, Ot Z79.8 99 OTHER DIRECTOR OF CATH LAB (CURRENT) DRUG THERAPY 09/18/2016 SE JUSTICE MD Ot E78.0 0 PURE HYPERCHOLESTEROLEMIA, UNSPECIFIED 09/18/2016 SE JUSTICE MD Ot I10 ESSENTIAL (PRIMARY) HYPERTENSION 09/18/2016 SE JUSTICE MD Ot I51.7 CARDIOMEGALY 09/18/2016 SE JUSTICE MD Ot I95.2 HYPOTENSION DUE TO DRUGS 09/18/2016 SE JUSTICE MD, Ot R42 DIZZINESS AND GIDDINESS 09/18/2016 SE JUSTICE MD, Ot S00.83XA CONTUSION OF OTHER PART OF HEAD, INITIAL 09/18/2016 SE JUSTICE MD, Ot S52.501B UNSP FX THE LOWER END OF R RADIUS, INIT 09/18/2016 SE JUSTICE MD, Ot S52.601B UNSP FX LOWER END OF RIGHT ULNA, INIT FO 09/18/2016 SE JUSTICE MD Ot W01.0XXA FALL SAME LEV FROM SLIP/TRIP W/O STRIKE 09/18/2016 SE JUSTICE MD Ot Y92.[address] IN UNSP NON-INSTITUT (PRIVATE 09/18/2016 SE JUSTICE MD Ot Y99.8 OTHER EXTERNAL CAUSE STATUS 09/18/2016 SE JUSTICE MD Ot Z23 ENCOUNTER FOR IMMUNIZATION 09/18/2016 SE JUSTICE MD Ot Z79.8 2 HALFWAY (CURRENT) USE OF ASPIRIN 09/18/2016 SE JUSTICE MD Ot Z79.8 99 OTHER HALFWAY (CURRENT) DRUG THERAPY 07/01/2017 Ot V72.84 EXA M PRE- OPERATIVE NOS 07/01/2017 Ot 401.9 HYPE RTENSION NOS 07/01/2017 Ot 416.8 CHR PULMON HEART DIS NEC 07/01/2017 Ot 424.1 AORT IC VALVE DISORDER 07/01/2017 Ot 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 4 HYPERLIPIDEMIA NEC/NOS 07/01/2017 MARIA ELENA DUDLEY MD Ot 396. 3 MITRAL/AORTIC LEAH INSUFF 07/01/2017 MARIA ELENA DUDLEY MD Ot 397. 0 TRICUSPID VALVE DISEASE 07/01/2017 MARIA ELENA DUDLEY MD Ot 401. 9 HYPERTENSION NOS 07/01/2017 MARIA ELENA DUDLEY MD Ot 782. 3 EDEMA 07/01/2017 MARIA ELENA DUDLEY MD Ot E78. 2 MIXED HYPERLIPIDEMIA 07/01/2017 MARIA ELENA DUDLEY MD Ot I10 ESSENTIAL (PRIMARY) HYPERTENSION 07/01/2017 MARIA ELENA DUDLEY MD Ot I35. 1 NONRHEUMATIC AORTIC (VALVE) INSUFFICIENC 07/01/2017 MARIA ELENA DUDLEY MD Ot I65. 23 OCCLUSION AND STENOSIS OF BILATERAL [place] 07/01/2017 JENAE RAMESH DO Ot M81.0 AGE-RELATED OSTEOPOROSIS W/O CURRENT PAT 07/01/2017 PURVI LO Ot E78.2 MIXED HYPERLIPIDEMIA 07/01/2017 PURVI LO Ot I10 ESSENTIAL (PRIMARY) HYPERTENSION 07/01/2017 PURVI LO Ot I35.1 NONRHEUMATIC AORTIC (VALVE) INSUFFICIENC 07/01/2017 PURVI LO Ot I65.23 OCCLUSION AND STENOSIS OF BILATERAL [place] 07/01/2017 MARIA ELENA DUDLEY MD Ot R07. 9 CHEST PAIN, UNSPECIFIED 07/01/2017 MARIA ELENA DUDLEY MD, Ot R07. 9 CHEST PAIN, UNSPECIFIED 07/01/2017 MARIA ELENA DUDLEY MD Ot R07. 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 4 HYPERLIPIDEMIA NEC/NOS 07/02/2017 MARIA ELENA DUDLEY MD Ot 396. 3 MITRAL/AORTIC LEAH INSUFF 07/02/2017 MARIA ELENA DUDLEY MD Ot 397. 0 TRICUSPID VALVE DISEASE 07/02/2017 MARIA ELENA DUDLEY MD Ot 401. 9 HYPERTENSION NOS 07/02/2017 MARIA ELENA DUDLEY MD Ot 782. 3 EDEMA 07/02/2017 MARIA ELENA DUDLEY MD Ot E78. 2 MIXED HYPERLIPIDEMIA 07/02/2017 MARIA ELENA DUDLEY MD Ot I10 ESSENTIAL (PRIMARY) HYPERTENSION 07/02/2017 MARIA ELENA DUDLEY MD Ot I35. 1 NONRHEUMATIC AORTIC (VALVE) INSUFFICIENC 07/02/2017 MARIA ELENA DUDLEY MD Ot I65. 23 OCCLUSION AND STENOSIS OF BILATERAL [place] 07/02/2017 JENAE RAMESH DO Ot M81.0 AGE-RELATED OSTEOPOROSIS W/O CURRENT PAT 07/02/2017 PURVI LO Ot E78.2 MIXED HYPERLIPIDEMIA 07/02/2017 PURVI LO Ot I10 ESSENTIAL (PRIMARY) HYPERTENSION 07/02/2017 PURVI LO Ot I35.1 NONRHEUMATIC AORTIC (VALVE) INSUFFICIENC 07/02/2017 PURVI LO Ot I65.23 OCCLUSION AND STENOSIS OF BILATERAL [place] 07/02/2017 MARIA ELENA DUDLEY MD Ot R07. 9 CHEST PAIN, UNSPECIFIED 07/06/2017 MARIA ELENA DUDLEY MD Ot E78. 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 29 OCCLUSION AND STENOSIS OF UNSPECIFIED CA 07/06/2017 MARIA ELENA DUDLEY MD Ot R07. 9 CHEST PAIN, UNSPECIFIED 07/08/2017 MARIA ELENA DUDLEY MD Ot E78. 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 29 OCCLUSION AND STENOSIS OF UNSPECIFIED CA 07/08/2017 MARIA ELENA DUDLEY MD Ot R07. 9 CHEST PAIN, UNSPECIFIED 07/12/2017 URSZULA TAI MD Ot D50.9 IRON DEFICIENCY ANEMIA, UNSPECIFIED 07/12/2017 URSZULA TAI MD Ot E78.00 PURE HYPERCHOLESTEROLEMIA, UNSPECIFIED 07/12/2017 URSZULA TAI MD Ot E86.1 HYPOVOLEMIA 07/12/2017 URSZULA TAI MD Ot I10 ESSENTIAL (PRIMARY) HYPERTENSION 07/12/2017 URSZULA TAI MD Ot K21.9 GASTRO-ESOPHAGEAL REFLUX DISEASE WITHOUT 07/12/2017 URSZULA TAI MD Ot R42 DIZZINESS AND GIDDINESS 07/12/2017 URSZULA TAI MD, Ot Z79.82 HALFWAY (CURRENT) USE OF ASPIRIN 07/12/2017 URSZULA TAI MD, Ot Z87.81 PERSONAL HISTORY OF (HEALED) TRAUMATIC F 07/12/2017 URSZULA TAI MD, Ot Z90.49 ACQUIRED ABSENCE OF OTHER SPECIFIED PART 07/12/2017 URSZULA TAI MD, Ot Z90.710 ACQUIRED ABSENCE OF BOTH CERVIX AND UTER 07/12/2017 URSZULA TAI MD, Ot Z90.89 ACQUIRED ABSENCE OF OTHER ORGANS 07/23/2017 MARIA ELENA DUDLEY MD Ot E78. 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 29 OCCLUSION AND STENOSIS OF UNSPECIFIED CA 07/23/2017 MARIA ELENA DUDLEY MD Ot R07. 9 CHEST PAIN, UNSPECIFIED 07/28/2017 MARIA ELENA DUDLEY MD Ot E78. 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 29 OCCLUSION AND STENOSIS OF UNSPECIFIED CA 07/28/2017 MARIA ELENA DUDLEY MD Ot R07. 9 CHEST PAIN, UNSPECIFIED 03/08/2018 THOMAS ESQUIVEL MD [...] HERNANDEZ MD Ot 794.31 ABNORM ELECTROCARDIOGRAM 03/14/2018 MARAI ELENA DUDLEY MD Ot 272. 4 HYPERLIPIDEMIA NEC/NOS 03/14/2018 MARIA ELENA DUDLEY MD Ot 396. 3 MITRAL/AORTIC LEAH INSUFF 03/14/2018 MARIA ELENA DUDLEY MD Ot 397. 0 TRICUSPID VALVE DISEASE 03/14/2018 MARIA ELENA DUDLEY MD Ot 401. 9 HYPERTENSION NOS 03/14/2018 MARIA ELENA DUDLEY MD Ot 782. 3 EDEMA 03/14/2018 MARIA ELENA DUDLEY MD Ot E78. 2 MIXED HYPERLIPIDEMIA 03/14/2018 MARIA ELENA DUDLEY MD Ot I10 ESSENTIAL (PRIMARY) HYPERTENSION 03/14/2018 MARIA ELENA DUDLEY MD Ot I35. 1 NONRHEUMATIC AORTIC (VALVE) INSUFFICIENC 03/14/2018 MARIA ELENA DUDLEY MD Ot I65. 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 29 OCCLUSION AND STENOSIS OF UNSPECIFIED CA 03/14/2018 MARIA ELENA DUDLEY MD Ot R07. 9 CHEST PAIN, UNSPECIFIED 03/14/2018 THOMAS ESQUIVEL MD, Ot D50.9 IRON DEFICIENCY ANEMIA, UNSPECIFIED 03/14/2018 THOMAS ESQUIVEL MD, Ot E78.00 PURE HYPERCHOLESTEROLEMIA, UNSPECIFIED 03/14/2018 THOMAS ESQUIVEL MD, Ot I1 0 ESSENTIAL (PRIMARY) HYPERTENSION 03/14/2018 THOMAS ESQUIVEL MD, Ot K21.9 GASTRO-ESOPHAGEAL REFLUX DISEASE WITHOUT 03/14/2018 THOMAS ESQUIVEL MD, Ot K25.9 GASTRIC ULCER, UNSP ACUTE OR CHRONIC, 03/14/2018 THOMAS ESQUIVEL MD Ot K57.30 DVRTCLOS OF LG INT W/O PERFORATION OR AB 03/14/2018 THOMAS ESQUIVEL MD, Ot K59.09 OTHER CONSTIPATION 03/14/2018 THOMAS ESQUIVEL MD Ot R19.5 OTHER FECAL ABNORMALITIES 03/14/2018 THOMAS ESQUIVEL MD Ot Z79.82 DIRECTOR OF CATH LAB (CURRENT) USE OF ASPIRIN 03/14/2018 THOMAS ESQUIVEL MD, Ot Z79.899 OTHER HALFWAY (CURRENT) DRUG THERAPY 03/14/2018 THOMAS ESQUIVEL MD, Ot Z86.010 PERSONAL HISTORY OF COLONIC POLYPS 03/17/2018 THOMAS ESQUIVEL MD, Ot D50.9 IRON DEFICIENCY ANEMIA, UNSPECIFIED 03/17/2018 THOMAS ESQUIVEL MD, Ot E78.00 PURE HYPERCHOLESTEROLEMIA, UNSPECIFIED 03/17/2018 THOMAS ESQUIVEL MD Ot I1 0 ESSENTIAL (PRIMARY) HYPERTENSION 03/17/2018 THOMAS ESQUIVEL MD Ot K21.9 GASTRO-ESOPHAGEAL REFLUX DISEASE WITHOUT 03/17/2018 THOMAS ESQUIVEL MD Ot K25.9 GASTRIC ULCER, UNSP ACUTE OR CHRONIC, 03/17/2018 THOMAS ESQUIVEL MD Ot K57.30 DVRTCLOS OF LG INT W/O PERFORATION OR AB 03/17/2018 THOMAS ESQUIVEL MD Ot K59.09 OTHER CONSTIPATION 03/17/2018 THOMAS ESQUIVEL MD Ot R19.5 OTHER FECAL ABNORMALITIES 03/17/2018 THOMAS ESQUIVEL MD Ot Z79.82 DIRECTOR OF CATH LAB (CURRENT) USE OF ASPIRIN 03/17/2018 THOMAS ESQUIVEL MD Ot Z79.899 OTHER HALFWAY (CURRENT) DRUG THERAPY 03/17/2018 THOMAS ESQUIVEL MD, Ot Z86.010 PERSONAL HISTORY OF COLONIC POLYPS [...] ELECTROCARDIOGRAM 05/01/2018 MARIA ELENA DUDLEY MD Ot 272. 4 HYPERLIPIDEMIA NEC/NOS 05/01/2018 MARIA ELENA DUDLEY MD Ot 396. 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 9 HYPERTENSION NOS 05/01/2018 MARIA ELENA DUDLEY MD Ot 782. 3 EDEMA 05/01/2018 MARIA ELENA DUDLEY MD Ot E78. 2 MIXED HYPERLIPIDEMIA 05/01/2018 MARIA ELENA DUDLEY MD Ot I10 ESSENTIAL (PRIMARY) HYPERTENSION 05/01/2018 MARIA ELENA DUDLEY MD Ot I35. 1 NONRHEUMATIC AORTIC (VALVE) INSUFFICIENC 05/01/2018 MARIA ELENA DUDLEY MD Ot I65. 23 OCCLUSION AND STENOSIS OF BILATERAL [place] 05/01/2018 JENAE RAMESH DO Ot M81.0 AGE-RELATED OSTEOPOROSIS W/O CURRENT PAT 05/01/2018 PURVI LO Ot E78.2 MIXED HYPERLIPIDEMIA 05/01/2018 PURVI LO Ot I10 ESSENTIAL (PRIMARY) HYPERTENSION 05/01/2018 PURVI LO Ot I35.1 NONRHEUMATIC AORTIC (VALVE) INSUFFICIENC 05/01/2018 PURVI LO Ot I65.23 OCCLUSION AND STENOSIS OF BILATERAL [place] 05/01/2018 MARIA ELENA DUDLEY MD, Ot E78. 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 29 OCCLUSION AND STENOSIS OF UNSPECIFIED CA 05/01/2018 MARIA ELENA DUDLEY MD Ot R07. 9 CHEST PAIN, UNSPECIFIED 05/01/2018 SHASTA SINGH MD Ot E78.00 PURE HYPERCHOLESTEROLEMIA, UNSPECIFIED 05/01/2018 SHASTA SINGH MD Ot I10 ESSENTIAL (PRIMARY) HYPERTENSION 05/01/2018 SHASTA SINGH MD Ot J10.1 FLU DUE TO OTH IDENT INFLUENZA VIRUS W O 05/01/2018 SHASTA SINGH MD Ot K21.9 GASTRO-ESOPHAGEAL REFLUX DISEASE WITHOUT 05/01/2018 SHASTA SINGH MD, Ot R05 COUGH 05/01/2018 SHASTA SINGH MD, Ot Z79.82 DIRECTOR OF CATH LAB (CURRENT) USE OF ASPIRIN 05/01/2018 SHASTA SINGH MD, Ot Z87.19 PERSONAL HISTORY OF OTHER DISEASES OF TH 05/01/2018 SHASTA SINGH MD, Ot Z90.49 ACQUIRED ABSENCE OF OTHER SPECIFIED PART 05/01/2018 SHASTA SINGH MD Ot Z90.710 ACQUIRED ABSENCE OF BOTH CERVIX AND UTER 05/01/2018 SHASTA SINGH MD Ot Z90.89 ACQUIRED ABSENCE OF OTHER ORGANS 05/03/2018 SHASTA SINGH MD, Ot E78.00 PURE HYPERCHOLESTEROLEMIA, UNSPECIFIED 05/03/2018 SHASTA SINGH MD, Ot I10 ESSENTIAL (PRIMARY) HYPERTENSION 05/03/2018 SHASTA SINGH MD, Ot J10.1 FLU DUE TO OT IDENT INFLUENZA VIRUS W O 05/03/2018 SHASTA SINGH MD, Ot K21.9 GASTRO-ESOPHAGEAL REFLUX DISEASE WITHOUT 05/03/2018 SHASTA SINGH MD Ot R05 COUGH 05/03/2018 SHASTA SINGH MD, Ot Z79.82 HALFWAY (CURRENT) USE OF ASPIRIN 05/03/2018 SHASTA SINGH MD, Ot Z87.19 PERSONAL HISTORY OF OTHER DISEASES OF 05/03/2018 SHASTA SINGH MD, Ot Z90.49 ACQUIRED ABSENCE OF OTHER SPECIFIED PART 05/03/2018 SHASTA SINGH MD, Ot Z90.710 ACQUIRED ABSENCE OF BOTH CERVIX AND UTER 05/03/2018 SHASTA SINGH MD, Ot Z90.89 ACQUIRED ABSENCE OF OTHER ORGANS 05/10/2018 CAROLINE BELLO MD Ot D50. 0 IRON DEFICIENCY ANEMIA SECONDARY TO BLOO 05/10/2018 CAROLINE BELLO MD Ot D61. 9 APLASTIC ANEMIA, UNSPECIFIED 05/10/2018 CAROLINE BELLO MD Ot E78. 00 PURE HYPERCHOLESTEROLEMIA, UNSPECIFIED 05/10/2018 CAROLINE BELLO MD Ot E87. 2 ACIDOSIS 05/10/2018 CRAOLINE BELLO MD Ot E87. 6 HYPOKALEMIA 05/10/2018 CAROLINE BELLO MD Ot E89. 0 POSTPROCEDURAL HYPOTHYROIDISM 05/10/2018 CAROLINE BELLO MD Ot H40. 9 UNSPECIFIED GLAUCOMA 05/10/2018 CAROLINE BELLO MD Ot I10 ESSENTIAL (PRIMARY) HYPERTENSION 05/10/2018 CAROLINE BELLO MD Ot J10. 1 FLU DUE TO OTH IDENT INFLUENZA VIRUS W O 05/10/2018 CAROLINE BELLO MD Ot J10. 2 INFLUENZA DUE TO OTH IDENT INFLUENZA VIR 05/10/2018 CAROLINE BELLO MD Ot J10. 89 INFLUENZA DUE TO OTH IDENT INFLUENZA VIR 05/10/2018 CAROLINE BELLO MD Ot K21. 9 GASTRO-ESOPHAGEAL REFLUX DISEASE WITHOUT 05/10/2018 CAROLINE BELLO MD Ot R05 COUGH 05/10/2018 CAROLINE BELLO MD Ot R06. 02 SHORTNESS OF BREATH 05/10/2018 CAROLINE BELLO MD Ot R06. 03 ACUTE RESPIRATORY DISTRESS 05/10/2018 CAROLINE BELLO MD Ot R09. 02 HYPOXEMIA 05/10/2018 CAROLINE BELLO MD Ot R11. 0 NAUSEA 05/10/2018 CAROLINE BELLO MD Ot R53. 1 WEAKNESS 05/10/2018 CAROLINE BELLO MD Ot Z86. 19 PERSONAL HISTORY OF OTHER INFECTIOUS AND 05/10/2018 CAROLINE BELLO MD Ot Z87. 11 PERSONAL HISTORY OF PEPTIC ULCER DISEASE 05/16/2018 [place] 280.9 IRON DEFICIENCY ANEMIA, UNSPECIFIED 05/16/2018 [place] 401.0 MALIGNANT ESSENTIAL HYPERTENSION 05/16/2018 Sapphire Corona 487.1 05/16/2018 Sapphire Corona 533.70 CHRONIC PEPTIC ULCER OF UNSPECIFIED SITE WITHOUT MENTION OF HEMORRHAGE OR PERFORATION, WITHOUT MENTION OF OBSTRUCTION 05/16/2018 Sapphire Corona 564.00 CONSTIPATION, UNSPECIFIED 05/16/2018 Sapphire Corona 780.79 OTHER MALAISE AND FATIGUE 05/16/2018 Sapphire Corona 786.09 05/16/2018 Sapphire Corona D50.9 IRON DEFICIENCY ANEMIA, UNSPECIFIED 05/16/2018 Sapphire Corona I10 ESSENTIAL (PRIMARY) HYPERTENSION 05/16/2018 CjBandari W J10.1 FLU DUE TO OTH IDENT INFLUENZA VIRUS W OTH RESP MANIFEST 05/16/2018 Bandar Coronai W K27.7 CHRONIC PEPTIC ULCER, SITE UNSP, W/O HEMORRHAGE OR PERF 05/16/2018 Bandar Coronai W K59.00 CONSTIPATION, UNSPECIFIED 05/16/2018 Bandar Coronai W R06.09 OTHER FORMS OF DYSPNEA 05/16/2018 Bandar Coronai W R53.1 WEAKNESS 08/11/2018 ERUM SAMSON Ot D50.9 IRON DEFICIENCY ANEMIA, UNSPECIFIED 08/11/2018 ERUM SAMSON Ot E66.9 OBESITY, UNSPECIFIED 08/11/2018 ERUM SAMSON Ot E78.5 HYPERLIPIDEMIA, UNSPECIFIED 08/11/2018 ERUM SAMSON N Ot I10 ESSENTIAL (PRIMARY) HYPERTENSION 08/11/2018 ERUM SAMSON Ot I27.20 PULMONARY HYPERTENSION, UNSPECIFIED 08/11/2018 ERUM SAMSON Ot I35.1 NONRHEUMATIC AORTIC (VALVE) INSUFFICIENC 08/11/2018 ERUM SAMSON Ot K25.9 GASTRIC ULCER, UNSP ACUTE OR CHRONIC, 08/11/2018 ERUM SAMSON Ot Z68.33 BODY MASS INDEX (BMI) 33.0-33.9, ADULT 08/11/2018 ERUM SAMSON N Ot Z79.82 HALFWAY (CURRENT) USE OF ASPIRIN 08/11/2018 ERUM SAMSON Ot Z79.899 OTHER DIRECTOR OF CATH LAB (CURRENT) DRUG THERAPY 08/18/2018 ERUM SAMSON Ot D50.9 IRON DEFICIENCY ANEMIA, UNSPECIFIED 08/18/2018 ERUM SAMSON N Ot E66.9 OBESITY, UNSPECIFIED 08/18/2018 MALIERUM PRESLEY N Ot E78.5 HYPERLIPIDEMIA, UNSPECIFIED 08/18/2018 ERUM SAMSON N Ot I10 ESSENTIAL (PRIMARY) HYPERTENSION 08/18/2018 ERUM SAMSON N Ot I27.20 PULMONARY HYPERTENSION, UNSPECIFIED 08/18/2018 MALIERUM PRESLEY N Ot I35.1 NONRHEUMATIC AORTIC (VALVE) INSUFFICIENC 08/18/2018 ERUM SAMSON Ot K25.9 GASTRIC ULCER, UNSP ACUTE OR CHRONIC, 08/18/2018 MALIERUM N Ot Z68.33 BODY MASS INDEX (BMI) 33.0-33.9, ADULT 08/18/2018 MALIERUM PRESLEY N Ot Z79.82 DIRECTOR OF CATH LAB (CURRENT) USE OF ASPIRIN 08/18/2018 MALIERUM N Ot Z79.899 OTHER HALFWAY (CURRENT) DRUG THERAPY 09/26/2018 MALIERUM N Ot D50.9 IRON DEFICIENCY ANEMIA, UNSPECIFIED 09/26/2018 MALI BOBAN N Ot E66.9 OBESITY, UNSPECIFIED 09/26/2018 MALI, BOBAN N Ot E78.5 HYPERLIPIDEMIA, UNSPECIFIED 09/26/2018 MALI, BOBAN N Ot I10 ESSENTIAL (PRIMARY) HYPERTENSION 09/26/2018 MALI, BOBAN N Ot I27.20 PULMONARY HYPERTENSION, UNSPECIFIED 09/26/2018 MALI, BOBAN N Ot I35.1 NONRHEUMATIC AORTIC (VALVE) INSUFFICIENC 09/26/2018 MALI BOBAN N Ot K25.9 GASTRIC ULCER, UNSP ACUTE OR CHRONIC, 09/26/2018 MALIERUM N Ot Z68.33 BODY MASS INDEX (BMI) 33.0-33.9, ADULT 09/26/2018 MALIERUM PRESLEY N Ot Z79.82 DIRECTOR OF CATH LAB (CURRENT) USE OF ASPIRIN 09/26/2018 MALIERUM N Ot Z79.899 OTHER DIRECTOR OF CATH LAB (CURRENT) DRUG THERAPY 09/28/2018 ERUM SAMSON N Ot D50.9 IRON DEFICIENCY ANEMIA, UNSPECIFIED 09/28/2018 MALI ERUM N Ot E66.9 OBESITY, UNSPECIFIED 09/28/2018 MALI, BOBAN N Ot E78.5 HYPERLIPIDEMIA, UNSPECIFIED 09/28/2018 MALI, BOBAN N Ot I10 ESSENTIAL (PRIMARY) HYPERTENSION 09/28/2018 MALI, BOBAN N Ot I27.20 PULMONARY HYPERTENSION, UNSPECIFIED 09/28/2018 MALI, BOBAN N Ot I35.1 NONRHEUMATIC AORTIC (VALVE) INSUFFICIENC 09/28/2018 MALI, BOBAN N Ot K25.9 GASTRIC ULCER, UNSP ACUTE OR CHRONIC, 09/28/2018 MALI, PHILIPKENYETTA N Ot Z68.33 BODY MASS INDEX (BMI) 33.0-33.9, ADULT 09/28/2018 MALIERUM PRESLEY N Ot Z79.82 HALFWAY (CURRENT) USE OF ASPIRIN 09/28/2018 MALI BOBAN N Ot Z79.899 OTHER HALFWAY (CURRENT) DRUG THERAPY 09/30/2018 MALIPHILIPAN N Ot D50.9 IRON DEFICIENCY ANEMIA, UNSPECIFIED 09/30/2018 MALI BOBAN N Ot E66.9 OBESITY, UNSPECIFIED 09/30/2018 MALI, BOBAN N Ot E78.5 HYPERLIPIDEMIA, UNSPECIFIED 09/30/2018 MALI, BOBAN N Ot I10 ESSENTIAL (PRIMARY) HYPERTENSION 09/30/2018 MALI, BOBAN N Ot I27.20 PULMONARY HYPERTENSION, UNSPECIFIED 09/30/2018 MALI, BOBAN N Ot I35.1 NONRHEUMATIC AORTIC (VALVE) INSUFFICIENC 09/30/2018 MALI BOBAN N Ot K25.9 GASTRIC ULCER, UNSP ACUTE OR CHRONIC, 09/30/2018 MALIPHILIPKENYETTA N Ot Z68.33 BODY MASS INDEX (BMI) 33.0-33.9, ADULT 09/30/2018 MALIERUM N Ot Z79.82 HALFWAY (CURRENT) USE OF ASPIRIN 09/30/2018 MALI BOBAN N Ot Z79.899 OTHER DIRECTOR OF CATH LAB (CURRENT) DRUG THERAPY 11/10/2018 MALIPHILIPKENYETTA N Ot D50.9 IRON DEFICIENCY ANEMIA, UNSPECIFIED 11/10/2018 MALI BOBKENYETTA N Ot E66.9 OBESITY, UNSPECIFIED 11/10/2018 MALI BOBAN N Ot E78.5 HYPERLIPIDEMIA, UNSPECIFIED 11/10/2018 MALI BOBAN N Ot I10 ESSENTIAL (PRIMARY) HYPERTENSION 11/10/2018 MALI, BOBAN N Ot I27.20 PULMONARY HYPERTENSION, UNSPECIFIED 11/10/2018 MALI, BOBAN N Ot I35.1 NONRHEUMATIC AORTIC (VALVE) INSUFFICIENC 11/10/2018 MALI BOBAN N Ot K25.9 GASTRIC ULCER, UNSP ACUTE OR CHRONIC, 11/10/2018 MALIPHILIPKENYETTA N Ot Z68.33 BODY MASS INDEX (BMI) 33.0-33.9, ADULT 11/10/2018 MALIPHILIPKENYETTA N Ot Z79.82 DIRECTOR OF CATH LAB (CURRENT) USE OF ASPIRIN 11/10/2018 MALIERUM N Ot Z79.899 OTHER DIRECTOR OF CATH LAB (CURRENT) DRUG THERAPY 12/28/2018 MALI PHILIPAN N Ot D50.9 IRON DEFICIENCY ANEMIA, UNSPECIFIED 12/28/2018 MALI, BOBAN N Ot E66.9 OBESITY, UNSPECIFIED 12/28/2018 MALI, BOBAN N Ot E78.5 HYPERLIPIDEMIA, UNSPECIFIED 12/28/2018 MALI, BOBAN N Ot I10 ESSENTIAL (PRIMARY) HYPERTENSION 12/28/2018 MALI, BOBAN N Ot I27.20 PULMONARY HYPERTENSION, UNSPECIFIED 12/28/2018 MALI, BOBAN N Ot I35.1 NONRHEUMATIC AORTIC (VALVE) INSUFFICIENC 12/28/2018 MALI BOBKENYETTA N Ot K25.9 GASTRIC ULCER, UNSP ACUTE OR CHRONIC, 12/28/2018 MALI PHILIPKENYETTA N Ot Z68.33 BODY MASS INDEX (BMI) 33.0-33.9, ADULT 12/28/2018 MALIERUM N Ot Z79.82 HALFWAY (CURRENT) USE OF ASPIRIN 12/28/2018 MALIERUM N Ot Z79.899 OTHER DIRECTOR OF CATH LAB (CURRENT) DRUG THERAPY 12/29/2018 MALI ERUM N Ot D50.9 IRON DEFICIENCY ANEMIA, UNSPECIFIED 12/29/2018 MALI BOBKENYETTA N Ot E66.9 OBESITY, UNSPECIFIED 12/29/2018 MALIERUM N Ot E78.5 HYPERLIPIDEMIA, UNSPECIFIED 12/29/2018 MALI, BOBKENYETTA N Ot I10 ESSENTIAL (PRIMARY) HYPERTENSION 12/29/2018 MALIERUM N Ot I27.20 PULMONARY HYPERTENSION, UNSPECIFIED 12/29/2018 MALIPHILIPKENYETTA N Ot I35.1 NONRHEUMATIC AORTIC (VALVE) INSUFFICIENC 12/29/2018 MALIERUM N Ot K25.9 GASTRIC ULCER, UNSP ACUTE OR CHRONIC, 12/29/2018 MALIERUM N Ot Z68.33 BODY MASS INDEX (BMI) 33.0-33.9, ADULT 12/29/2018 MALIPHILIPAN N Ot Z79.82 HALFWAY (CURRENT) USE OF ASPIRIN 12/29/2018 MALIERUM N Ot Z79.899 OTHER HALFWAY (CURRENT) DRUG THERAPY 01/26/2019 ERUM SAMSON N Ot B96.81 HELICOBACTER PYLORI THE CAUSE OF DISE 01/26/2019 ERUM SAMSON N Ot D50.9 IRON DEFICIENCY ANEMIA, UNSPECIFIED 01/26/2019 ERUM SAMSON N Ot K25.9 GASTRIC ULCER, UNSP ACUTE OR CHRONIC, 01/26/2019 ERUM SAMSON N Ot Z79.2 DIRECTOR OF CATH LAB (CURRENT) USE OF ANTIBIOTICS 01/26/2019 MALI PHILIPKENYETTA N Ot Z79.82 DIRECTOR OF CATH LAB (CURRENT) USE OF ASPIRIN 01/26/2019 ERUM SAMSON N Ot Z79.899 OTHER HALFWAY (CURRENT) DRUG THERAPY 02/14/2019 ERUM SAMSON N Ot B96.81 HELICOBACTER PYLORI THE CAUSE OF DISE 02/14/2019 ERUM SAMSON N Ot D50.9 IRON DEFICIENCY ANEMIA, UNSPECIFIED 02/14/2019 ERUM SAMSON N Ot K25.9 GASTRIC ULCER, UNSP ACUTE OR CHRONIC, 02/14/2019 MALIPHILIPKENYETTA N Ot Z79.2 DIRECTOR OF CATH LAB (CURRENT) USE OF ANTIBIOTICS 02/14/2019 ERUM SAMSON N Ot Z79.82 DIRECTOR OF CATH LAB (CURRENT) USE OF ASPIRIN 02/14/2019 ERUM SAMSON N Ot Z79.899 OTHER DIRECTOR OF CATH LAB (CURRENT) DRUG THERAPY 04/05/2019 MALI PHILIPKENYETTA N Ot B96.81 HELICOBACTER PYLORI THE CAUSE OF DISE 04/05/2019 ERUM SAMSON N Ot D50.9 IRON DEFICIENCY ANEMIA, UNSPECIFIED 04/05/2019 MALI PHILIPKENYETTA N Ot K25.9 GASTRIC ULCER, UNSP ACUTE OR CHRONIC, 04/05/2019 MALIPHILIPKENYETTA N Ot Z79.2 HALFWAY (CURRENT) USE OF ANTIBIOTICS 04/05/2019 MALI PHILIPKENYETTA N Ot Z79.82 DIRECTOR OF CATH LAB (CURRENT) USE OF ASPIRIN 04/05/2019 MALI PHILIPKENYETTA N Ot Z79.899 OTHER DIRECTOR OF CATH LAB (CURRENT) DRUG THERAPY 04/06/2019 MALI PHILIPKENYETTA N Ot B96.81 HELICOBACTER PYLORI THE CAUSE OF DISE 04/06/2019 ERUM SAMSON N Ot D50.9 IRON DEFICIENCY ANEMIA, UNSPECIFIED 04/06/2019 MALI PHILIPKENYETTA N Ot K25.9 GASTRIC ULCER, UNSP ACUTE OR CHRONIC, 04/06/2019 ERUM SAMSON Ot Z79.2 DIRECTOR OF CATH LAB (CURRENT) USE OF ANTIBIOTICS 04/06/2019 ERUM SAMSON Ot Z79.82 DIRECTOR OF CATH LAB (CURRENT) USE OF ASPIRIN 04/06/2019 ERUM SAMSON Ot Z79.899 OTHER DIRECTOR OF CATH LAB (CURRENT) DRUG THERAPY 08/29/2019 ERUM SAMSON Ot D50.9 IRON DEFICIENCY ANEMIA, UNSPECIFIED 09/21/2019 LEISURE, ANOOP Lou 041.49 OTHER AND UNSPECIFIED ESCHERICHIA COLI [E. COLI] INFECTION IN CONDITIONS CLASSIFIED ELSEWHERE AND OF UNSPECIFIED SITE 09/21/2019 LEISURE, ANOOP W 401.0 MALIGNANT ESSENTIAL HYPERTENSION 09/21/2019 LEISURE, ANOOP W 599.0 URINARY TRACT INFECTION, SITE NOT SPECIFIED 09/21/2019 LEISURE, ANOOP Lou B96.20 UNSPECIFIED ESCHERICHIA COLI [E. COLI] THE CAUSE OF DISEASES CLASSIFIED ELSEWHERE 09/21/2019 LEISURE, ANOOP Lou D50.9 IRON DEFICIENCY ANEMIA, UNSPECIFIED 09/21/2019 LEISURE, ANOOP Lou I10 ESSENTIAL (PRIMARY) HYPERTENSION 09/21/2019 LEISURE, ANOOP Lou J10.1 FLU DUE TO OTH IDENT INFLUENZA VIRUS W OTH RESP MANIFEST 09/21/2019 LEISURE, ANOOP Lou K27.7 CHRONIC PEPTIC ULCER, SITE UNSP, W/O HEMORRHAGE OR PERF 09/21/2019 LEISURE, ANOOP Lou K59.00 CONSTIPATION, UNSPECIFIED 09/21/2019 LEISURE, ANOOP Lou N39.0 URINARY TRACT INFECTION, SITE NOT SPECIFIED 09/21/2019 LEISURE, ANOOP Lou R06.09 OTHER FORMS OF DYSPNEA 09/21/2019 LEISURE, ANOOP Lou R53.1 WEAKNESS 09/22/2019 Ricco Levi 401.0 MALIGNANT ESSENTIAL HYPERTENSION 09/22/2019 Ricco Levi D50.9 IRON DEFICIENCY ANEMIA, UNSPECIFIED 09/22/2019 Ricco Lvei I10 ESSENTIAL (PRIMARY) HYPERTENSION 09/22/2019 Ricco Levi J10.1 FLU DUE TO OTH IDENT INFLUENZA VIRUS W OTH RESP MANIFEST 09/22/2019 Ricco Levi K27.7 CHRONIC PEPTIC ULCER, SITE UNSP, W/O HEMORRHAGE OR PERF 09/22/2019 Ricco Levi K59.00 CONSTIPATION, UNSPECIFIED 09/22/2019 Ricco Levi R06.09 OTHER FORMS OF DYSPNEA 09/22/2019 Ricco Levi R53.1 WEAKNESS Procedures Code Description Performed By [place] [id number] EX CISION OF STOMACH, PYLORUS, ENDO, DIAG 05/09/2018 Results Test Result Range Complete blood count (CBC) with automate d white blood cell (WBC) differential - 09/11/16 23:35 Blood leukocytes automated count (number/volume) 10.6 10*3/uL 4.3-11.0 Blood erythrocytes automated count (number/volume) 4.80 10*6/uL 4.35-5.85 Venous blood hemoglobin measurement (mass/volume) 10.6 g/dL 11.5-16.0 Blood hematocrit (volume fraction) 34 % 35-52 Automated erythrocyte mean corpuscular volume 70 [ foz_us] 80-99 Automated erythrocyte mean corpuscular h emoglobin (mass per erythrocyte) 22 pg 25-34 Automated erythrocyte mean corpuscular h emoglobin concentration measurement (mass/volume) 32 g/dL 32-36 Automated erythrocyte distribution width ratio 17. 6 % 10.0- 14.5 Automated blood platelet count (count/volume) 302 10*3/uL [...] 10*3 1.0-4.0 Blood monocytes automated count (number/volume) 1. 1 10*3 0.0-1.0 Automated eosinophil count 0.2 10*3/uL 0 .0-0.3 Automated blood basophil count (count/volume) 0.0 10*3/uL 0.0-0.1 PT panel in platelet poor plasma by coag ulation assay - 09/11/16 23:35 Prothrombin time (PT) in platelet poor plasma by coagu lation assay 13.7 s 12.2-14.7 INR in platelet poor plasma or blood by coagulation as say 1.1 0.8-1.4 Activated partial thromboplastin time (a PTT) in platelet poor plasma bycoagulation assay - 09/11/16 23:35 Activated partial thromboplastin time (a PTT) in platelet poor plasma bycoagulation assay 31 s 24-35 Comprehensive metabolic panel - 09/11/16 23:35 Serum or plasma sodium measurement (moles/volume) 138 mmol/L 135-145 Serum or plasma potassium measurement (moles/volume) 3.5 mmol/L 3.6-5.0 Serum or plasma chloride measurement (moles/volume) 106 mmol/L 98-107 Carbon dioxide 22 mmol/L 21-32 Serum or plasma anion gap determination (moles/volume) 10 mmol/L 5-14 Serum or plasma urea nitrogen measurement (mass/volume ) 9 mg/dL 7-18 Serum or plasma creatinine measurement (mass/volume) 0.85 mg/dL 0.60-1.30 Serum or plasma urea nitrogen/creatinine mass ratio 11 0-20 Serum or plasma creatinine measurement w ith calculation of estimated glomerular filtration rate > NRG Serum or plasma glucose measurement (mass/volume) 171 mg/dL 70-105 Serum or plasma calcium measurement (mass/volume) 8.7 mg/dL 8.5-10.1 Serum or plasma total bilirubin measurement (mass/volu me) 0.5 mg/dL 0.1-1.0 Serum or plasma alkaline phosphatase sonali surement (enzymatic activity/volume) 64 U/L 40-136 Serum or plasma aspartate aminotransfera se measurement (enzymatic activity/volume) 11 U/L 5-34 Serum or plasma alanine aminotransferase measurement (enzymatic activity/volume) 6 U/L 0-55 Serum or plasma protein measurement (mass/volume) 6.3 g/dL 6.4-8.2 Serum or plasma albumin measurement (mass/volume) 3.1 g/dL 3.2-4.5 Magnesium - 09/11/16 23:35 Magnesium 1.6 mg/dL 1.8-2.4 Serum or plasma troponin i.cardiac measu rement (mass/volume) - 09/11/16 23:35 Serum or plasma troponin i.cardiac measurement (mass/v olume) < ng/mL <0.30 Serum or plasma thyrotropin measurement by detection limit <=0.05 miu/l (units/volume) - 09/11/16 23:35 Serum or plasma thyrotropin measurement by detection limit <=0.05 miu/l (units/volume) 2.32 u[iU]/mL 0.35-4.94 Complete blood count (CBC) with automate d white blood cell (WBC) differential - 07/12/17 06:25 Blood leukocytes automated count (number/volume) 9.0 10*3/uL 4.3-11.0 Blood erythrocytes automated count (number/volume) 4.86 10*6/uL 4.35-5.85 Venous blood hemoglobin measurement (mass/volume) 9.3 g/dL 11.5-16.0 Blood hematocrit (volume fraction) 31 % 35-52 Automated erythrocyte mean corpuscular volume 63 [ foz_us] 80-99 Automated erythrocyte mean corpuscular h emoglobin (mass per erythrocyte) 19 pg 25-34 Automated erythrocyte mean corpuscular h emoglobin concentration measurement (mass/volume) 31 g/dL 32-36 Automated erythrocyte distribution width ratio 19. 1 % 10.0- 14.5 Automated blood platelet count (count/volume) 391 10*3/uL [...] 10*3 1.0-4.0 Blood monocytes automated count (number/volume) 0. 8 10*3 0.0-1.0 Automated eosinophil count 0.2 10*3/uL 0 .0-0.3 Automated blood basophil count (count/volume) 0.0 10*3/uL 0.0-0.1 Comprehensive metabolic panel - 07/12/17 06:25 Serum or plasma sodium measurement (moles/volume) 139 mmol/L 135-145 Serum or plasma potassium measurement (moles/volume) 3.9 mmol/L 3.6-5.0 Serum or plasma chloride measurement (moles/volume) 108 mmol/L 98-107 Carbon dioxide 23 mmol/L 21-32 Serum or plasma anion gap determination (moles/volume) 8 mmol/L 5-14 Serum or plasma urea nitrogen measurement (mass/volume ) 10 mg/dL 7-18 Serum or plasma creatinine measurement (mass/volume) 0.69 mg/dL 0.60-1.30 Serum or plasma urea nitrogen/creatinine mass ratio 14 NRG Serum or plasma creatinine measurement w ith calculation of estimated glomerular filtration rate > NRG Serum or plasma glucose measurement (mass/volume) 121 mg/dL 70-105 Serum or plasma calcium measurement (mass/volume) 8.5 mg/dL 8.5-10.1 Serum or plasma total bilirubin measurement (mass/volu me) 0.9 mg/dL 0.1-1.0 Serum or plasma alkaline phosphatase sonali surement (enzymatic activity/volume) 66 U/L 40-136 Serum or plasma aspartate aminotransfera se measurement (enzymatic activity/volume) 12 U/L 5-34 Serum or plasma alanine aminotransferase measurement (enzymatic activity/volume) 8 U/L 0-55 Serum or plasma protein measurement (mass/volume) 6.9 g/dL 6.4-8.2 Serum or plasma albumin measurement (mass/volume) 3.6 g/dL 3.2-4.5 Magnesium - 07/12/17 06:25 Magnesium 1.9 mg/dL 1.8-2.4 Serum or plasma troponin i.cardiac measu rement (mass/volume) - 07/12/17 06:25 Serum or plasma troponin i.cardiac measurement (mass/v olume) < ng/mL <0.30 THYROID STIMULATING HORMONE - 07/12/17 0 6:25 THYROID STIMULATING HORMONE 1.87 u[iU]/mL 0.35-4.94 Serum or plasma thyroxine (T4) free maddy urement (mass/volume) - 07/12/17 06:25 Serum or plasma thyroxine (T4) free measurement (mass/ volume) 1.06 ng/dL 0.70-1.48 Serum iron and total iron binding capaci ty panel - 07/12/17 06:25 Serum or plasma iron measurement (mass/volume) 14 % 35-180 Total iron binding capacity and transferrin saturation measurement 4 % 15-50 Iron binding capacity [mass/volume] in serum or plasma 384 % 280-380 UIBC (unsaturated iron binding capacity) 370 % 55-450 Serum or plasma ferritin measurement (mass/volume) 4.0 % 15.0-150.0 Complete urinalysis with reflex to cultu re - 07/12/17 07:35 Urine color determination YELLOW NRG Urine clarity determination CLEAR NR G Urine pH measurement by test strip 8 5-9 Specific gravity of urine by test strip 1.010 1.016-1.022 Urine protein assay by test strip, semi-quantitative NEGATIVE NEGATIVE Urine glucose detection by automated test strip NE GATIVE NEGATIVE Erythrocytes detection in urine sediment by light micr oscopy 1+ NEGATIVE Urine ketones detection by automated test strip NE GATIVE NEGATIVE Urine nitrite detection by test strip NEGATIVE NEGATIVE Urine total bilirubin detection by test strip NEGA TIVE NEGATIVE Urine urobilinogen measurement by automated test strip (mass/volume) 1 mg/dL NORMAL Urine leukocyte esterase detection by dipstick 1+ NEGATIVE Automated urine sediment erythrocyte cou nt by microscopy (number/high power field) [HPF] NRG Automated urine sediment leukocyte count by microscopy (number/high power field) [HPF] NRG Bacteria detection in urine sediment by light microsco py TRACE NRG Squamous epithelial cells detection in u rine sediment by light microscopy 0-2 NRG Crystals detection in urine sediment by light microsco py NONE NRG Casts detection in urine sediment by light microscopy NONE NRG Mucus detection in urine sediment by light microscopy NEGATIVE NRG Complete urinalysis with reflex to culture NO NRG eGFR - 01/23/18 10:26 Creat 0.75 mg/dL 0.50-1.50 eGFR 74 mL/min/1.73m2 >59 Blood Urea Nitrogen - 01/23/18 10:26 BUN 17 mg/dL 5-25 Influenza virus A and B antigen detectio n - 04/30/18 23:44 CALL POSITIVES (F1 HELP) CALLED TO LEONIDAS IN ER@000 3 NRG FLU RESULT POSITIVE FOR INFLUENZA A ANT IGEN, NEG FOR B ANTIGEN, BY IA NRG Complete blood count (CBC) with automate d white blood cell (WBC) differential - 05/01/18 00:35 Blood leukocytes automated count (number/volume) 7.8 10*3/uL 4.3-11.0 Blood erythrocytes automated count (number/volume) 4.42 10*6/uL 4.35-5.85 Venous blood hemoglobin measurement (mass/volume) 7.5 g/dL 11.5-16.0 Blood hematocrit (volume fraction) 26 % 35-52 Automated erythrocyte mean corpuscular volume 58 [ foz_us] 80-99 Automated erythrocyte mean corpuscular h emoglobin (mass per erythrocyte) 17 pg 25-34 Automated erythrocyte mean corpuscular h emoglobin concentration measurement (mass/volume) 29 g/dL 32-36 Automated erythrocyte distribution width ratio 19. 6 % 10.0- 14.5 Automated blood platelet count (count/volume) 377 10*3/uL [...] 10*3 1.0-4.0 Blood monocytes automated count (number/volume) 1. 3 10*3 0.0-1.0 Automated eosinophil count 0.0 10*3/uL 0 .0-0.3 Automated blood basophil count (count/volume) 0.0 10*3/uL 0.0-0.1 Comprehensive metabolic panel - 05/01/18 00:35 Serum or plasma sodium measurement (moles/volume) 132 mmol/L 135-145 Serum or plasma potassium measurement (moles/volume) 4.0 mmol/L 3.6-5.0 Serum or plasma chloride measurement (moles/volume) 101 mmol/L 98-107 Carbon dioxide 20 mmol/L 21-32 Serum or plasma anion gap determination (moles/volume) 11 mmol/L 5-14 Serum or plasma urea nitrogen measurement (mass/volume ) 16 mg/dL 7-18 Serum or plasma creatinine measurement (mass/volume) 0.76 mg/dL 0.60-1.30 Serum or plasma urea nitrogen/creatinine mass ratio 21 NRG Serum or plasma creatinine measurement w ith calculation of estimated glomerular filtration rate > NRG Serum or plasma glucose measurement (mass/volume) 127 mg/dL 70-105 Serum or plasma calcium measurement (mass/volume) 8.4 mg/dL 8.5-10.1 Serum or plasma total bilirubin measurement (mass/volu me) 0.7 mg/dL 0.1-1.0 Serum or plasma alkaline phosphatase sonali surement (enzymatic activity/volume) 65 U/L 40-136 Serum or plasma aspartate aminotransfera se measurement (enzymatic activity/volume) 17 U/L 5-34 Serum or plasma alanine aminotransferase measurement (enzymatic activity/volume) 8 U/L 0-55 Serum or plasma protein measurement (mass/volume) 7.0 g/dL 6.4-8.2 Serum or plasma albumin measurement (mass/volume) 3.5 g/dL 3.2-4.5 CALCIUM CORRECTED 8.8 mg/dL 8.5-10.1 Complete blood count (CBC) with automate d white blood cell (WBC) differential - 05/04/18 21:15 Blood leukocytes automated count (number/volume) 4.7 10*3/uL 4.3-11.0 Blood erythrocytes automated count (number/volume) 3.97 10*6/uL 4.35-5.85 Venous blood hemoglobin measurement (mass/volume) 6.9 g/dL 11.5-16.0 Blood hematocrit (volume fraction) 23 % 35-52 Automated erythrocyte mean corpuscular volume 58 [ foz_us] 80-99 Automated erythrocyte mean corpuscular h emoglobin (mass per erythrocyte) 17 pg 25-34 Automated erythrocyte mean corpuscular h emoglobin concentration measurement (mass/volume) 30 g/dL 32-36 Automated erythrocyte distribution width ratio 20. 1 % 10.0- 14.5 Automated blood platelet count (count/volume) 343 10*3/uL 130-400 Automated blood platelet mean volume measurement 9.5 [foz_us] 7.4-10.4 Automated blood neutrophils/100 leukocytes 69 % 42-75 Automated blood lymphocytes/100 leukocytes 20 % 12-44 Blood monocytes/100 leukocytes 11 % 0-12 Automated blood eosinophils/100 leukocytes 0 % 0-10 Automated blood basophils/100 leukocytes 0 % 0-10 Blood neutrophils automated count (number/volume) 3.3 10*3 1.8-7.8 Blood lymphocytes automated count (number/volume) 0.9 10*3 1.0-4.0 Blood monocytes automated count (number/volume) 0. 5 10*3 0.0-1.0 Automated eosinophil count 0.0 10*3/uL 0 .0-0.3 Automated blood basophil count (count/volume) 0.0 10*3/uL 0.0-0.1 Whole blood basic metabolic panel - 04/22 06/07 21:15 Serum or plasma sodium measurement (moles/volume) 132 mmol/L 135-145 Serum or plasma potassium measurement (moles/volume) 3.4 mmol/L 3.6-5.0 Serum or plasma chloride measurement (moles/volume) 101 mmol/L 98-107 Carbon dioxide 24 mmol/L 21-32 Serum or plasma anion gap determination (moles/volume) 7 mmol/L 5-14 Serum or plasma urea nitrogen measurement (mass/volume ) 12 mg/dL 7-18 Serum or plasma creatinine measurement (mass/volume) 0.71 mg/dL 0.60-1.30 Serum or plasma urea nitrogen/creatinine mass ratio 17 NRG Serum or plasma creatinine measurement w ith calculation of estimated glomerular filtration rate > NRG Serum or plasma glucose measurement (mass/volume) 118 mg/dL 70-105 Serum or plasma calcium measurement (mass/volume) 8.0 mg/dL 8.5-10.1 Complete blood count (CBC) with automate d white blood cell (WBC) differential - 05/05/18 05:40 Blood leukocytes automated count (number/volume) 5.2 10*3/uL 4.3-11.0 Blood erythrocytes automated count (number/volume) 4.08 10*6/uL 4.35-5.85 Venous blood hemoglobin measurement (mass/volume) 7.0 g/dL 11.5-16.0 Blood hematocrit (volume fraction) 24 % 35-52 Automated erythrocyte mean corpuscular volume 59 [ foz_us] 80-99 Automated erythrocyte mean corpuscular h emoglobin (mass per erythrocyte) 17 pg 25-34 Automated erythrocyte mean corpuscular h emoglobin concentration measurement (mass/volume) 29 g/dL 32-36 Automated erythrocyte distribution width ratio 19. 7 % 10.0- 14.5 Automated blood platelet count (count/volume) 344 10*3/uL 130-400 Automated blood platelet mean volume measurement 9.1 [foz_us] 7.4-10.4 Automated blood neutrophils/100 leukocytes 58 % 42-75 Automated blood lymphocytes/100 leukocytes 30 % 12-44 Blood monocytes/100 leukocytes 11 % 0-12 Automated blood eosinophils/100 leukocytes 1 % 0-10 Automated blood basophils/100 leukocytes 0 % 0-10 Blood neutrophils automated count (number/volume) 3.0 10*3 1.8-7.8 Blood lymphocytes automated count (number/volume) 1.6 10*3 1.0-4.0 Blood monocytes automated count (number/volume) 0. 6 10*3 0.0-1.0 Automated eosinophil count 0.0 10*3/uL 0 .0-0.3 Automated blood basophil count (count/volume) 0.0 10*3/uL 0.0-0.1 Comprehensive metabolic panel - 05/05/18 05:40 Serum or plasma sodium measurement (moles/volume) 133 mmol/L 135-145 Serum or plasma potassium measurement (moles/volume) 3.6 mmol/L 3.6-5.0 Serum or plasma chloride measurement (moles/volume) 103 mmol/L 98-107 Carbon dioxide 22 mmol/L 21-32 Serum or plasma anion gap determination (moles/volume) 8 mmol/L 5-14 Serum or plasma urea nitrogen measurement (mass/volume ) 9 mg/dL 7-18 Serum or plasma creatinine measurement (mass/volume) 0.68 mg/dL 0.60-1.30 Serum or plasma urea nitrogen/creatinine mass ratio 13 NRG Serum or plasma creatinine measurement w ith calculation of estimated glomerular filtration rate > NRG Serum or plasma glucose measurement (mass/volume) 98 mg/dL 70-105 Serum or plasma calcium measurement (mass/volume) 7.8 mg/dL 8.5-10.1 Serum or plasma total bilirubin measurement (mass/volu me) 0.5 mg/dL 0.1-1.0 Serum or plasma alkaline phosphatase sonali surement (enzymatic activity/volume) 49 U/L 40-136 Serum or plasma aspartate aminotransfera se measurement (enzymatic activity/volume) 22 U/L 5-34 Serum or plasma alanine aminotransferase measurement (enzymatic activity/volume) 9 U/L 0-55 Serum or plasma protein measurement (mass/volume) 6.2 g/dL 6.4-8.2 Serum or plasma albumin measurement (mass/volume) 3.2 g/dL 3.2-4.5 CALCIUM CORRECTED 8.4 mg/dL 8.5-10.1 Automated reticulocyte percentage - 04/22 07/08 05:40 Blood erythrocytes automated count (number/volume) 4.11 10*6/uL 4.35-5.85 Blood reticulocytes count (number/volume) 42 10*9/ L 24-90 Blood reticulocytes/100 erythrocytes 1.03 % 0.50-2.40 Pathologist review of blood test by millicent briceño - 05/05/18 05:40 Blood leukocytes automated count (number/volume) 5.2 10*3/uL 4.3-11.0 Blood erythrocytes automated count (number/volume) 4.08 10*6/uL 4.35-5.85 Venous blood hemoglobin measurement (mass/volume) 7.0 g/dL 11.5-16.0 Blood hematocrit (volume fraction) 24 % 35-52 Automated erythrocyte mean corpuscular volume 59 [ foz_us] 80-99 Automated erythrocyte mean corpuscular h emoglobin (mass per erythrocyte) 17 pg 25-34 Automated erythrocyte mean corpuscular h emoglobin concentration measurement (mass/volume) 29 g/dL 32-36 Automated erythrocyte distribution width ratio 19. 7 % 10.0- 14.5 Automated blood platelet count (count/volume) 344 10*3/uL 130-400 Automated blood platelet mean volume measurement 9.1 [foz_us] 7.4-10.4 Automated blood neutrophils/100 leukocytes 58 % 42-75 Automated blood lymphocytes/100 leukocytes 30 % 12-44 Blood monocytes/100 leukocytes 2 % NRG Automated blood eosinophils/100 leukocytes 1 % 0-10 Automated blood basophils/100 leukocytes 0 % 0-10 Blood neutrophils automated count (number/volume) 3.0 10*3 1.8-7.8 Blood lymphocytes automated count (number/volume) 1.6 10*3 1.0-4.0 Blood monocytes automated count (number/volume) 0. 6 10*3 0.0-1.0 Automated eosinophil count 0.0 10*3/uL 0 .0-0.3 Automated blood basophil count (count/volume) 0.0 10*3/uL 0.0-0.1 Manual blood segmented neutrophils/100 leukocytes 61 % NRG Blood band neutrophils/100 leukocytes 1 % NRG Manual blood lymphocytes/100 leukocytes 24 % NRG Manual eosinophils/100 leukocytes in nose 2 % NRG Manual blood basophils/100 leukocytes 0 % NRG Blood lymphocytes variant/100 leukocytes 10 % NRG Blood anisocytosis detection by light microscopy M ARKED NRG Blood ovalocytes detection by light microscopy MOD ERATE NRG Blood toxic granules detection by light microscopy 1+ NRG Blood poikilocytosis detection by light microscopy MODERATE NRG Blood hypochromia detection by light microscopy MO DERATE NRG Blood microcytes detection by light microscopy MOD ERATE NRG Blood reticulocytes count (number/volume) 42 10*9/ L 24-90 Blood reticulocytes/100 erythrocytes 1.03 % 0.50-2.40 Blood target cells detection by light microscopy R ARE NRG Blood spherocytes detection by light microscopy MO DERATE NRG Acanthocyte detection SLIGHT NRG Serum iron and total iron binding capaci ty panel - 05/05/18 05:40 Serum or plasma iron measurement (mass/volume) < % 35-180 Total iron binding capacity and transferrin saturation measurement < % 15-50 Iron binding capacity [mass/volume] in serum or plasma < % 280-380 UIBC (unsaturated iron binding capacity) 354 % 55-450 Serum or plasma ferritin measurement (mass/volume) 7.5 % 20.0-177.0 RED CELLS LEUKO REDUCED AS1 - 05/05/18 1 2:55 RED CELLS LEUKO REDUCED AS1 T RANSFUSED 05/05/18 1350 NRG Blood type T Indirect antibody screen pa callie - 05/05/18 12:55 ABO+Rh group OP NRG Transfusion band number [id number] NRG Blood group antibody screen NEGATIVE NR G Complete blood count (CBC) with automate d white blood cell (WBC) differential - 05/06/18 05:54 Blood leukocytes automated count (number/volume) 5.9 10*3/uL 4.3-11.0 Blood erythrocytes automated count (number/volume) 4.12 10*6/uL 4.35-5.85 Venous blood hemoglobin measurement (mass/volume) 7.5 g/dL 11.5-16.0 Blood hematocrit (volume fraction) 26 % 35-52 Automated erythrocyte mean corpuscular volume 61 [ foz_us] 80-99 Automated erythrocyte mean corpuscular h emoglobin (mass per erythrocyte) 18 pg 25-34 Automated erythrocyte mean corpuscular h emoglobin concentration measurement (mass/volume) 30 g/dL 32-36 Automated erythrocyte distribution width ratio 22. 8 % 10.0- 14.5 Automated blood platelet count (count/volume) 169 10*3/uL 130-400 Automated blood platelet mean volume measurement 9.9 [foz_us] 7.4-10.4 Automated blood neutrophils/100 leukocytes 72 % 42-75 Automated blood lymphocytes/100 leukocytes 16 % 12-44 Blood monocytes/100 leukocytes 11 % 0-12 Automated blood eosinophils/100 leukocytes 1 % 0-10 Automated blood basophils/100 leukocytes 0 % 0-10 Blood neutrophils automated count (number/volume) 3.8 10*3 1.8-7.8 Blood lymphocytes automated count (number/volume) 0.9 10*3 1.0-4.0 Blood monocytes automated count (number/volume) 0. 6 10*3 0.0-1.0 Automated eosinophil count 0.0 10*3/uL 0 .0-0.3 Automated blood basophil count (count/volume) 0.0 10*3/uL 0.0-0.1 Whole blood basic metabolic panel - 04/22 08/07 05:54 Serum or plasma sodium measurement (moles/volume) 134 mmol/L 135-145 Serum or plasma potassium measurement (moles/volume) 4.5 mmol/L 3.6-5.0 Serum or plasma chloride measurement (moles/volume) 110 mmol/L 98-107 Carbon dioxide 17 mmol/L 21-32 Serum or plasma anion gap determination (moles/volume) 7 mmol/L 5-14 Serum or plasma urea nitrogen measurement (mass/volume ) 7 mg/dL 7-18 Serum or plasma creatinine measurement (mass/volume) 0.67 mg/dL 0.60-1.30 Serum or plasma urea nitrogen/creatinine mass ratio 10 NRG Serum or plasma creatinine measurement w ith calculation of estimated glomerular filtration rate > NRG Serum or plasma glucose measurement (mass/volume) 95 mg/dL 70-105 Serum or plasma calcium measurement (mass/volume) 7.7 mg/dL 8.5-10.1 Serum or plasma phosphate measurement (m ass/volume) - 05/07/18 07:50 Serum or plasma phosphate measurement (mass/volume) 1.9 mg/dL 2.3-4.7 Magnesium - 05/07/18 07:50 Magnesium 1.6 mg/dL 1.8-2.4 Complete blood count (CBC) with automate d white blood cell (WBC) differential - 05/07/18 07:55 Blood leukocytes automated count (number/volume) 8.1 10*3/uL 4.3-11.0 Blood erythrocytes automated count (number/volume) 4.28 10*6/uL 4.35-5.85 Venous blood hemoglobin measurement (mass/volume) 7.7 g/dL 11.5-16.0 Blood hematocrit (volume fraction) 26 % 35-52 Automated erythrocyte mean corpuscular volume 61 [ foz_us] 80-99 Automated erythrocyte mean corpuscular h emoglobin (mass per erythrocyte) 18 pg 25-34 Automated erythrocyte mean corpuscular h emoglobin concentration measurement (mass/volume) 30 g/dL 32-36 Automated erythrocyte distribution width ratio 23. 8 % 10.0- 14.5 Automated blood platelet count (count/volume) 294 10*3/uL 130-400 Automated blood platelet mean volume measurement 9.1 [foz_us] 7.4-10.4 Automated blood neutrophils/100 leukocytes 77 % 42-75 Automated blood lymphocytes/100 leukocytes 14 % 12-44 Blood monocytes/100 leukocytes 8 % 0-12 Automated blood eosinophils/100 leukocytes 0 % 0-10 Automated blood basophils/100 leukocytes 0 % 0-10 Blood neutrophils automated count (number/volume) 6.2 10*3 1.8-7.8 Blood lymphocytes automated count (number/volume) 1.2 10*3 1.0-4.0 Blood monocytes automated count (number/volume) 0. 7 10*3 0.0-1.0 Automated eosinophil count 0.0 10*3/uL 0 .0-0.3 Automated blood basophil count (count/volume) 0.0 10*3/uL 0.0-0.1 Whole blood basic metabolic panel - 04/22 09/07 07:55 Serum or plasma sodium measurement (moles/volume) 135 mmol/L 135-145 Serum or plasma potassium measurement (moles/volume) 2.8 mmol/L 3.6-5.0 Serum or plasma chloride measurement (moles/volume) 106 mmol/L 98-107 Carbon dioxide 21 mmol/L 21-32 Serum or plasma anion gap determination (moles/volume) 8 mmol/L 5-14 Serum or plasma urea nitrogen measurement (mass/volume ) 5 mg/dL 7-18 Serum or plasma creatinine measurement (mass/volume) 0.65 mg/dL 0.60-1.30 Serum or plasma urea nitrogen/creatinine mass ratio 8 NRG Serum or plasma creatinine measurement w ith calculation of estimated glomerular filtration rate > NRG Serum or plasma glucose measurement (mass/volume) 113 mg/dL 70-105 Serum or plasma calcium measurement (mass/volume) 8.6 mg/dL 8.5-10.1 Serum or plasma lithium measurement (mol es/volume) - 05/07/18 07:55 BNP level 857.3 pg/mL <100.0 Arterial blood gas measurement - 9 08:59 Blood pCO2 29 mm[Hg] 35-45 Blood pO2 83 mm[Hg] 79-93 Arterial blood bicarbonate measurement (moles/volume) 22 mmol/L 23-27 Arterial blood base excess by calculation -1.2 mmo l/L -2.5-2.5 Arterial blood oxygen saturation measurement 98 % 94-100 * Inhaled oxygen flow rate 2 L NRG Arterial blood pH measurement with patient temperature correction 7.48 7.37-7.43 Arterial blood carbon dioxide, total measurement (mole s/volume) 22.8 mmol/L 21.0-31.0 Body site RIGHT BRACHIAL NRG Assessment of wrist artery patency prior to arterial p uncture POSITIVE NRG Setting of ventilation mode NO NR G Measurement of body temperature 97.6 NRG Blood lactic acid measurement (moles/vol ume) - 05/07/18 09:44 Blood lactic acid measurement (moles/volume) 1.09 mmol/L 0.50-2.00 Serum or plasma troponin i.cardiac measu rement (mass/volume) - 05/07/18 12:42 Serum or plasma troponin i.cardiac measurement (mass/v olume) < ng/mL <0.028 Whole blood basic metabolic panel - 04/22 09/07 16:02 Serum or plasma sodium measurement (moles/volume) 135 mmol/L 135-145 Serum or plasma potassium measurement (moles/volume) 3.2 mmol/L 3.6-5.0 Serum or plasma chloride measurement (moles/volume) 102 mmol/L 98-107 Carbon dioxide 20 mmol/L 21-32 Serum or plasma anion gap determination (moles/volume) 13 mmol/L 5-14 Serum or plasma urea nitrogen measurement (mass/volume ) 5 mg/dL 7-18 Serum or plasma creatinine measurement (mass/volume) 0.79 mg/dL 0.60-1.30 Serum or plasma urea nitrogen/creatinine mass ratio 6 NRG Serum or plasma creatinine measurement w ith calculation of estimated glomerular filtration rate > NRG Serum or plasma glucose measurement (mass/volume) 227 mg/dL 70-105 Serum or plasma calcium measurement (mass/volume) 7.8 mg/dL 8.5-10.1 Complete blood count (CBC) with automate d white blood cell (WBC) differential - 05/07/18 16:09 Blood leukocytes automated count (number/volume) 8.6 10*3/uL 4.3-11.0 Blood erythrocytes automated count (number/volume) 4.71 10*6/uL 4.35-5.85 Venous blood hemoglobin measurement (mass/volume) 8.6 g/dL 11.5-16.0 Blood hematocrit (volume fraction) 28 % 35-52 Automated erythrocyte mean corpuscular volume 60 [ foz_us] 80-99 Automated erythrocyte mean corpuscular h emoglobin (mass per erythrocyte) 18 pg 25-34 Automated erythrocyte mean corpuscular h emoglobin concentration measurement (mass/volume) 30 g/dL 32-36 Automated erythrocyte distribution width ratio 24. 7 % 10.0- 14.5 Automated blood platelet count (count/volume) 290 10*3/uL 130-400 Automated blood platelet mean volume measurement 9.3 [foz_us] 7.4-10.4 Automated blood neutrophils/100 leukocytes 96 % 42-75 Automated blood lymphocytes/100 leukocytes 3 % 12-44 Blood monocytes/100 leukocytes 1 % 0-12 Automated blood eosinophils/100 leukocytes 0 % 0-10 Automated blood basophils/100 leukocytes 0 % 0-10 Blood neutrophils automated count (number/volume) 8.3 10*3 1.8-7.8 Blood lymphocytes automated count (number/volume) 0.3 10*3 1.0-4.0 Blood monocytes automated count (number/volume) 0. 1 10*3 0.0-1.0 Automated eosinophil count 0.0 10*3/uL 0 .0-0.3 Automated blood basophil count (count/volume) 0.0 10*3/uL 0.0-0.1 Blood manual differential performed dete ction - 05/07/18 16:09 Blood monocytes/100 leukocytes 0 % NRG Manual blood segmented neutrophils/100 leukocytes 97 % NRG Blood band neutrophils/100 leukocytes 1 % NRG Manual blood lymphocytes/100 leukocytes 1 % NRG Manual eosinophils/100 leukocytes in nose 0 % NRG Manual blood basophils/100 leukocytes 0 % NRG Blood lymphocytes variant/100 leukocytes 1 % NRG Blood anisocytosis detection by light microscopy M ARKED NRG Blood ovalocytes detection by light microscopy MOD ERATE NRG Blood toxic granules detection by light microscopy 1+ NRG Blood poikilocytosis detection by light microscopy MODERATE NRG Blood hypochromia detection by light microscopy MO DERATE NRG Blood microcytes detection by light microscopy MOD ERATE NRG Blood target cells detection by light microscopy R ARE NRG Acanthocyte detection MODERATE NRG Serum or plasma troponin i.cardiac measu rement (mass/volume) - 05/07/18 17:49 Serum or plasma troponin i.cardiac measurement (mass/v olume) < ng/mL <0.028 Serum or plasma troponin i.cardiac measu rement (mass/volume) - 05/07/18 23:55 Serum or plasma troponin i.cardiac measurement (mass/v olume) < ng/mL <0.028 Complete blood count (CBC) with automate d white blood cell (WBC) differential - 05/08/18 05:25 Blood leukocytes automated count (number/volume) 6.3 10*3/uL 4.3-11.0 Blood erythrocytes automated count (number/volume) 4.19 10*6/uL 4.35-5.85 Venous blood hemoglobin measurement (mass/volume) 7.7 g/dL 11.5-16.0 Blood hematocrit (volume fraction) 25 % 35-52 Automated erythrocyte mean corpuscular volume 60 [ foz_us] 80-99 Automated erythrocyte mean corpuscular h emoglobin (mass per erythrocyte) 18 pg 25-34 Automated erythrocyte mean corpuscular h emoglobin concentration measurement (mass/volume) 31 g/dL 32-36 Automated erythrocyte distribution width ratio 24. 0 % 10.0- 14.5 Automated blood platelet count (count/volume) 300 10*3/uL 130-400 Automated blood platelet mean volume measurement 9.5 [foz_us] 7.4-10.4 Automated blood neutrophils/100 leukocytes 89 % 42-75 Automated blood lymphocytes/100 leukocytes 8 % 12-44 Blood monocytes/100 leukocytes 3 % 0-12 Automated blood eosinophils/100 leukocytes 0 % 0-10 Automated blood basophils/100 leukocytes 0 % 0-10 Blood neutrophils automated count (number/volume) 5.6 10*3 1.8-7.8 Blood lymphocytes automated count (number/volume) 0.5 10*3 1.0-4.0 Blood monocytes automated count (number/volume) 0. 2 10*3 0.0-1.0 Automated eosinophil count 0.0 10*3/uL 0 .0-0.3 Automated blood basophil count (count/volume) 0.0 10*3/uL 0.0-0.1 Whole blood basic metabolic panel - 04/22 10/07 05:25 Serum or plasma sodium measurement (moles/volume) 134 mmol/L 135-145 Serum or plasma potassium measurement (moles/volume) 3.7 mmol/L 3.6-5.0 Serum or plasma chloride measurement (moles/volume) 104 mmol/L 98-107 Carbon dioxide 22 mmol/L 21-32 Serum or plasma anion gap determination (moles/volume) 8 mmol/L 5-14 Serum or plasma urea nitrogen measurement (mass/volume ) 7 mg/dL 7-18 Serum or plasma creatinine measurement (mass/volume) 0.65 mg/dL 0.60-1.30 Serum or plasma urea nitrogen/creatinine mass ratio 11 NRG Serum or plasma creatinine measurement w ith calculation of estimated glomerular filtration rate > NRG Serum or plasma glucose measurement (mass/volume) 166 mg/dL 70-105 Serum or plasma calcium measurement (mass/volume) 7.7 mg/dL 8.5-10.1 Serum or plasma phosphate measurement (m ass/volume) - 05/08/18 05:25 Serum or plasma phosphate measurement (mass/volume) 2.7 mg/dL 2.3-4.7 Magnesium - 05/08/18 05:25 Magnesium 1.9 mg/dL 1.8-2.4 Complete blood count (CBC) with automate d white blood cell (WBC) differential - 05/09/18 05:41 Blood leukocytes automated count (number/volume) 16.8 10*3/uL 4.3-11.0 Blood erythrocytes automated count (number/volume) 4.55 10*6/uL 4.35-5.85 Venous blood hemoglobin measurement (mass/volume) 8.2 g/dL 11.5-16.0 Blood hematocrit (volume fraction) 28 % 35-52 Automated erythrocyte mean corpuscular volume 61 [ foz_us] 80-99 Automated erythrocyte mean corpuscular h emoglobin (mass per erythrocyte) 18 pg 25-34 Automated erythrocyte mean corpuscular h emoglobin concentration measurement (mass/volume) 30 g/dL 32-36 Automated erythrocyte distribution width ratio 24. 7 % 10.0- 14.5 Automated blood platelet count (count/volume) 425 10*3/uL 130-400 Automated blood platelet mean volume measurement 10.5 [foz_us] 7.4-10.4 Automated blood neutrophils/100 leukocytes 93 % 42-75 Automated blood lymphocytes/100 leukocytes 4 % 12-44 Blood monocytes/100 leukocytes 3 % 0-12 Automated blood eosinophils/100 leukocytes 0 % 0-10 Automated blood basophils/100 leukocytes 0 % 0-10 Blood neutrophils automated count (number/volume) 15.5 10*3 1.8-7.8 Blood lymphocytes automated count (number/volume) 0.7 10*3 1.0-4.0 Blood monocytes automated count (number/volume) 0. 5 10*3 0.0-1.0 Automated eosinophil count 0.0 10*3/uL 0 .0-0.3 Automated blood basophil count (count/volume) 0.0 10*3/uL 0.0-0.1 Whole blood basic metabolic panel - 04/22 11/07 05:41 Serum or plasma sodium measurement (moles/volume) 135 mmol/L 135-145 Serum or plasma potassium measurement (moles/volume) 3.7 mmol/L 3.6-5.0 Serum or plasma chloride measurement (moles/volume) 104 mmol/L 98-107 Carbon dioxide 23 mmol/L 21-32 Serum or plasma anion gap determination (moles/volume) 8 mmol/L 5-14 Serum or plasma urea nitrogen measurement (mass/volume ) 9 mg/dL 7-18 Serum or plasma creatinine measurement (mass/volume) 0.73 mg/dL 0.60-1.30 Serum or plasma urea nitrogen/creatinine mass ratio 12 NRG Serum or plasma creatinine measurement w ith calculation of estimated glomerular filtration rate > NRG Serum or plasma glucose measurement (mass/volume) 140 mg/dL 70-105 Serum or plasma calcium measurement (mass/volume) 7.9 mg/dL 8.5-10.1 Serum or plasma phosphate measurement (m ass/volume) - 05/09/18 05:41 Serum or plasma phosphate measurement (mass/volume) 2.2 mg/dL 2.3-4.7 Magnesium - 05/09/18 05:41 Magnesium 2.1 mg/dL 1.8-2.4 Blood manual differential performed dete ction - 05/09/18 05:41 Blood monocytes/100 leukocytes 3 % NRG Manual blood segmented neutrophils/100 leukocytes 93 % NRG Blood band neutrophils/100 leukocytes 0 % NRG Manual blood lymphocytes/100 leukocytes 4 % NRG Manual eosinophils/100 leukocytes in nose 0 % NRG Manual blood basophils/100 leukocytes 0 % NRG Blood polychromasia detection by light microscopy SLIGHT NRG Blood anisocytosis detection by light microscopy M ARKED NRG Blood ovalocytes detection by light microscopy MOD ERATE NRG Blood hypochromia detection by light microscopy MO DERATE NRG Blood microcytes detection by light microscopy MOD ERATE NRG Blood target cells detection by light microscopy S LIGHT NRG Complete blood count (CBC) with automate d white blood cell (WBC) differential - 05/10/18 05:45 Blood leukocytes automated count (number/volume) 14.9 10*3/uL 4.3-11.0 Blood erythrocytes automated count (number/volume) 4.17 10*6/uL 4.35-5.85 Venous blood hemoglobin measurement (mass/volume) 7.8 g/dL 11.5-16.0 Blood hematocrit (volume fraction) 26 % 35-52 Automated erythrocyte mean corpuscular volume 62 [ foz_us] 80-99 Automated erythrocyte mean corpuscular h emoglobin (mass per erythrocyte) 19 pg 25-34 Automated erythrocyte mean corpuscular h emoglobin concentration measurement (mass/volume) 30 g/dL 32-36 Automated erythrocyte distribution width ratio 25. 2 % 10.0- 14.5 Automated blood platelet count (count/volume) 391 10*3/uL 130-400 Automated blood platelet mean volume measurement 9.5 [foz_us] 7.4-10.4 Automated blood neutrophils/100 leukocytes 85 % 42-75 Automated blood lymphocytes/100 leukocytes 7 % 12-44 Blood monocytes/100 leukocytes 8 % 0-12 Automated blood eosinophils/100 leukocytes 0 % 0-10 Automated blood basophils/100 leukocytes 0 % 0-10 Blood neutrophils automated count (number/volume) 12.7 10*3 1.8-7.8 Blood lymphocytes automated count (number/volume) 1.1 10*3 1.0-4.0 Blood monocytes automated count (number/volume) 1. 2 10*3 0.0-1.0 Automated eosinophil count 0.0 10*3/uL 0 .0-0.3 Automated blood basophil count (count/volume) 0.0 10*3/uL 0.0-0.1 Whole blood basic metabolic panel - 04/22 12/08 05:45 Serum or plasma sodium measurement (moles/volume) 137 mmol/L 135-145 Serum or plasma potassium measurement (moles/volume) 3.4 mmol/L 3.6-5.0 Serum or plasma chloride measurement (moles/volume) 106 mmol/L 98-107 Carbon dioxide 22 mmol/L 21-32 Serum or plasma anion gap determination (moles/volume) 9 mmol/L 5-14 Serum or plasma urea nitrogen measurement (mass/volume ) 18 mg/dL 7-18 Serum or plasma creatinine measurement (mass/volume) 0.78 mg/dL 0.60-1.30 Serum or plasma urea nitrogen/creatinine mass ratio 23 NRG Serum or plasma creatinine measurement w ith calculation of estimated glomerular filtration rate > NRG Serum or plasma glucose measurement (mass/volume) 181 mg/dL 70-105 Serum or plasma calcium measurement (mass/volume) 7.8 mg/dL 8.5-10.1 Serum or plasma phosphate measurement (m ass/volume) - 05/10/18 05:45 Serum or plasma phosphate measurement (mass/volume) 1.6 mg/dL 2.3-4.7 Magnesium - 05/10/18 05:45 Magnesium 2.0 mg/dL 1.8-2.4 Comprehensive Metabolic Panel - 05/11/18 04:57 Albumin 2.7 g/dL 3.6-5.1 ALP 53 U/L 35-130 ALT 8 U/L 6-45 Anion Gap 13 6-14 AST 16 U/L 2-40 BUN 15 mg/dL 5-25 Calcium 7.5 mg/dL 8.3-10.4 Chloride 103 mmol/L 95-114 CO2 24 mEq/L 22-33 Creat 0.78 mg/dL 0.50-1.50 eGFR 71 mL/min/1.73m2 >59 Globulin 2.4 g/dL 2.3-3.5 Glucose 140 mg/dL 70-110 Osmo 284 280-295 Potassium 4.2 mmol/L 3.5-5.3 Sodium 136 mmol/L 134-148 TBil 0.6 mg/dL 0.2-1.2 TP 5.1 g/dL 6.0-8.3 Comprehensive Metabolic Panel - 05/12/18 06:58 Albumin 3.0 g/dL 3.6-5.1 ALP 54 U/L 35-130 ALT 8 U/L 6-45 Anion Gap 12 6-14 AST 15 U/L 2-40 BUN 14 mg/dL 5-25 Calcium 7.9 mg/dL 8.3-10.4 Chloride 103 mmol/L 95-114 CO2 25 mEq/L 22-33 Creat 0.71 mg/dL 0.50-1.50 eGFR 79 mL/min/1.73m2 >59 Globulin 2.6 g/dL 2.3-3.5 Glucose 144 mg/dL 70-110 Osmo 284 280-295 Potassium 4.3 mmol/L 3.5-5.3 Sodium 136 mmol/L 134-148 TBil 0.5 mg/dL 0.2-1.2 TP 5.6 g/dL 6.0-8.3 Comprehensive Metabolic Panel - 05/13/18 04:55 Albumin 2.5 g/dL 3.6-5.1 ALP 44 U/L 35-130 ALT 7 U/L 6-45 Anion Gap 11 6-14 AST 11 U/L 2-40 BUN 13 mg/dL 5-25 Calcium 7.5 mg/dL 8.3-10.4 Chloride 104 mmol/L 95-114 CO2 26 mEq/L 22-33 Creat 0.69 mg/dL 0.50-1.50 eGFR 81 mL/min/1.73m2 >59 Globulin 2.1 g/dL 2.3-3.5 Glucose 84 mg/dL 70-110 Osmo 283 280-295 Potassium 3.9 mmol/L 3.5-5.3 Sodium 137 mmol/L 134-148 TBil 0.4 mg/dL 0.2-1.2 TP 4.6 g/dL 6.0-8.3 Comprehensive Metabolic Panel - 05/14/18 06:00 Albumin 2.8 g/dL 3.6-5.1 ALP 54 U/L 35-130 ALT 8 U/L 6-45 Anion Gap 13 6-14 AST 15 U/L 2-40 BUN 11 mg/dL 5-25 Calcium 7.8 mg/dL 8.3-10.4 Chloride 104 mmol/L 95-114 CO2 25 mEq/L 22-33 Creat 0.72 mg/dL 0.50-1.50 eGFR 77 mL/min/1.73m2 >59 Globulin 2.4 g/dL 2.3-3.5 Glucose 100 mg/dL 70-110 Osmo 285 280-295 Potassium 3.7 mmol/L 3.5-5.3 Sodium 138 mmol/L 134-148 TBil 0.6 mg/dL 0.2-1.2 TP 5.2 g/dL 6.0-8.3 Complete blood count (CBC) with automate d white blood cell (WBC) differential - 09/26/18 13:52 Blood leukocytes automated count (number/volume) 7.8 10*3/uL 4.3-11.0 Blood erythrocytes automated count (number/volume) 4.80 10*6/uL 4.35-5.85 Venous blood hemoglobin measurement (mass/volume) 13.1 g/dL 11.5-16.0 Blood hematocrit (volume fraction) 39 % 35-52 Automated erythrocyte mean corpuscular volume 81 [ foz_us] 80-99 Automated erythrocyte mean corpuscular h emoglobin (mass per erythrocyte) 27 pg 25-34 Automated erythrocyte mean corpuscular h emoglobin concentration measurement (mass/volume) 34 g/dL 32-36 Automated erythrocyte distribution width ratio 17. 0 % 10.0- 14.5 Automated blood platelet count (count/volume) 260 10*3/uL 130-400 Automated blood platelet mean volume measurement 10.0 [foz_us] 7.4-10.4 Automated blood neutrophils/100 leukocytes 63 % 42-75 Automated blood lymphocytes/100 leukocytes 26 % 12-44 Blood monocytes/100 leukocytes 9 % 0-12 Automated blood eosinophils/100 leukocytes 2 % 0-10 Automated blood basophils/100 leukocytes 0 % 0-10 Blood neutrophils automated count (number/volume) 4.9 10*3 1.8-7.8 Blood lymphocytes automated count (number/volume) 2.0 10*3 1.0-4.0 Blood monocytes automated count (number/volume) 0. 7 10*3 0.0-1.0 Automated eosinophil count 0.2 10*3/uL 0 .0-0.3 Automated blood basophil count (count/volume) 0.0 10*3/uL 0.0-0.1 Comprehensive metabolic panel - 09/26/18 13:52 Serum or plasma sodium measurement (moles/volume) 135 mmol/L 135-145 Serum or plasma potassium measurement (moles/volume) 4.1 mmol/L 3.6-5.0 Serum or plasma chloride measurement (moles/volume) 103 mmol/L 98-107 Carbon dioxide 24 mmol/L 21-32 Serum or plasma anion gap determination (moles/volume) 8 mmol/L 5-14 Serum or plasma urea nitrogen measurement (mass/volume ) 10 mg/dL 7-18 Serum or plasma creatinine measurement (mass/volume) 0.75 mg/dL 0.60-1.30 Serum or plasma urea nitrogen/creatinine mass ratio 13 NRG Serum or plasma creatinine measurement w ith calculation of estimated glomerular filtration rate > NRG Serum or plasma glucose measurement (mass/volume) 117 mg/dL 70-105 Serum or plasma calcium measurement (mass/volume) 8.8 mg/dL 8.5-10.1 Serum or plasma total bilirubin measurement (mass/volu me) 0.8 mg/dL 0.1-1.0 Serum or plasma alkaline phosphatase sonali surement (enzymatic activity/volume) 60 U/L 40-136 Serum or plasma aspartate aminotransfera se measurement (enzymatic activity/volume) 14 U/L 5-34 Serum or plasma alanine aminotransferase measurement (enzymatic activity/volume) 9 U/L 0-55 Serum or plasma protein measurement (mass/volume) 6.6 g/dL 6.4-8.2 Serum or plasma albumin measurement (mass/volume) 3.5 g/dL 3.2-4.5 CALCIUM CORRECTED 9.2 mg/dL 8.5-10.1 Serum or plasma ferritin measurement (ma ss/volume) - 09/26/18 13:52 Serum or plasma ferritin measurement (mass/volume) 15.7 % 20.0-177.0 Cardiac Panel - 09/20/19 22:26 CK 31 U/L 26-174 CK-MB 1.2 ng/ml 0.0-9.2 Myoglobin 38.8 ng/ml 1.6-106.0 Troponin <0.020 ng/mL 0.0-0.4 Urinalysis - 09/20/19 22:26 Icotest Negative Negative Urine Volume Urine Volume Sufficient (10mL) Urine Yeast No Yeast present Urine-Appearance Slightly Cloudy Clear Urine-Bacteria 3+ Urine-Bilirubin 1+ Negative Urine-Blood Trace-intact Negative Urine-Color Yellow Colorless-Lt. [place] ow Urine-Epithelial Cells 0-5/HPF Urine-Glucose Negative Negative Urine-Ketones Negative Negative Urine-Leukocytes Negative Negative Urine-Mucus 1+ Urine-Nitrite Negative Negative Urine-Other Culture to follow Urine-pH 6.5 5-8.5 Urine-Protein Negative Negative Urine-RBC Few/HPF Urine-Specific [place] 1.025 1.000-1 .030 Urine-WBC Nothing Seen on Microscopic Urobilinogen 2.0 E.U./dL 0.2-1.0 Complete blood count (CBC) with automate d white blood cell (WBC) differential - 10/01/19 13:50 Blood leukocytes automated count (number/volume) 10.1 10*3/uL 4.3-11.0 Blood erythrocytes automated count (number/volume) 4.89 10*6/uL 4.35-5.85 Venous blood hemoglobin measurement (mass/volume) 15.4 g/dL 11.5-16.0 Blood hematocrit (volume fraction) 43 % 35-52 Automated erythrocyte mean corpuscular volume 87 [ foz_us] 80-99 Automated erythrocyte mean corpuscular h emoglobin (mass per erythrocyte) 32 pg 25-34 Automated erythrocyte mean corpuscular h emoglobin concentration measurement (mass/volume) 36 g/dL 32-36 Automated erythrocyte distribution width ratio 14. 0 % 10.0- 14.5 Automated blood platelet count (count/volume) 211 10*3/uL 130-400 Automated blood platelet mean volume measurement 9.6 [foz_us] 7.4-10.4 Automated blood neutrophils/100 leukocytes 69 % 42-75 Automated blood lymphocytes/100 leukocytes 19 % 12-44 Blood monocytes/100 leukocytes 9 % 0-12 Automated blood eosinophils/100 leukocytes 3 % 0-10 Automated blood basophils/100 leukocytes 0 % 0-10 Blood neutrophils automated count (number/volume) 7.0 10*3 1.8-7.8 Blood lymphocytes automated count (number/volume) 1.9 10*3 1.0-4.0 Blood monocytes automated count (number/volume) 0. 9 10*3 0.0-1.0 Automated eosinophil count 0.3 10*3/uL 0 .0-0.3 Automated blood basophil count (count/volume) 0.0 10*3/uL 0.0-0.1 Comprehensive metabolic panel - 10/01/19 13:50 Serum or plasma sodium measurement (moles/volume) 136 mmol/L 135-145 Serum or plasma potassium measurement (moles/volume) 3.3 mmol/L 3.6-5.0 Serum or plasma chloride measurement (moles/volume) 102 mmol/L 98-107 Carbon dioxide 19 mmol/L 21-32 Serum or plasma anion gap determination (moles/volume) 15 mmol/L 5-14 Serum or plasma urea nitrogen measurement (mass/volume ) 6 mg/dL 7-18 Serum or plasma creatinine measurement (mass/volume) 0.68 mg/dL 0.60-1.30 Serum or plasma urea nitrogen/creatinine mass ratio 9 NRG Serum or plasma creatinine measurement w ith calculation of estimated glomerular filtration rate > NRG Serum or plasma glucose measurement (mass/volume) 134 mg/dL 70-105 Serum or plasma calcium measurement (mass/volume) 8.6 mg/dL 8.5-10.1 Serum or plasma total bilirubin measurement (mass/volu me) 1.4 mg/dL 0.1-1.0 Serum or plasma alkaline phosphatase sonali surement (enzymatic activity/volume) 75 U/L 40-136 Serum or plasma aspartate aminotransfera se measurement (enzymatic activity/volume) 18 U/L 5-34 Serum or plasma alanine aminotransferase measurement (enzymatic activity/volume) 10 U/L 0-55 Serum or plasma protein measurement (mass/volume) 6.9 g/dL 6.4-8.2 Serum or plasma albumin measurement (mass/volume) 3.6 g/dL 3.2-4.5 CALCIUM CORRECTED 8.9 mg/dL 8.5-10.1 Magnesium - 10/01/19 13:50 Magnesium 1.7 mg/dL 1.6-2.4 Blood lactic acid measurement (moles/vol ume) - 10/01/19 13:50 Blood lactic acid measurement (moles/volume) 2.62 mmol/L 0.50-2.00 Serum or plasma creatine kinase measurem ent (enzymatic activity/volume) - 10/01/19 13:50 Serum or plasma creatine kinase measurem ent (enzymatic activity/volume) 20 U/L 29-168 Serum or plasma creatine kinase MB measu rement (enzymatic activity/volume) - 10/01/19 13:50 Serum or plasma creatine kinase MB measu rement (enzymatic activity/volume) 0.9 ng/mL <6.6 Serum or plasma troponin i.cardiac measu rement (mass/volume) - 10/01/19 13:50 Serum or plasma troponin i.cardiac measurement (mass/v olume) < ng/mL <0.028 PT panel in platelet poor plasma by coag ulation assay - 10/01/19 13:50 Prothrombin time (PT) in platelet poor plasma by coagu lation assay 14.7 s 12.2-14.7 INR in platelet poor plasma or blood by coagulation as say 1.1 0.8-1.4 Activated partial thromboplastin time (a PTT) in platelet poor plasma bycoagulation assay - 10/01/19 13:50 Activated partial thromboplastin time (a PTT) in platelet poor plasma bycoagulation assay 35 s 24-35 Serum or plasma lithium measurement (mol es/volume) - 10/01/19 13:50 BNP PT 152.9 pg/mL <100.0 Myoglobin, serum - 10/01/19 13:50 Myoglobin, serum 32.9 ng/mL 10.0-92.0 Serum or plasma amylase measurement (enz ymatic activity/volume) - 10/01/19 13:50 Serum or plasma amylase measurement (enzymatic activit y/volume) 23 U/L 25-125 Lipase - 10/01/19 13:50 Lipase 7 U/L 8-78 Serum or plasma thyrotropin measurement by detection limit <=0.05 miu/l (units/volume) - 10/01/19 13:50 Serum or plasma thyrotropin measurement by detection limit <=0.05 miu/l (units/volume) 0.96 u[iU]/mL 0.35-4.94 Complete urinalysis with reflex to cultu re - 10/01/19 14:00 Urine color determination YELLOW NRG Urine clarity determination CLEAR NR G Urine pH measurement by test strip 7.5 5-9 Specific gravity of urine by test strip 1.015 1.016-1.022 Urine protein assay by test strip, semi-quantitative TRACE NEGATIVE Urine glucose detection by automated test strip NE GATIVE NEGATIVE Erythrocytes detection in urine sediment by light micr oscopy TRACE-L NEGATIVE Urine ketones detection by automated test strip NE GATIVE NEGATIVE Urine nitrite detection by test strip NEGATIVE NEGATIVE Urine total bilirubin detection by test strip NEGA TIVE NEGATIVE Urine urobilinogen measurement by automated test strip (mass/volume) 2.0 mg/dL < = 1.0 Urine leukocyte esterase detection by dipstick NEG ATIVE NEGATIVE Automated urine sediment erythrocyte cou nt by microscopy (number/high power field) NONE NRG Automated urine sediment leukocyte count by microscopy (number/high power field) NONE NRG Bacteria detection in urine sediment by light microsco py NEGATIVE NRG Squamous epithelial cells detection in u rine sediment by light microscopy NONE NRG Crystals detection in urine sediment by light microsco py NONE NRG Casts detection in urine sediment by light microscopy NONE NRG Mucus detection in urine sediment by light microscopy NEGATIVE NRG Complete urinalysis with reflex to culture NO NRG Serum or plasma lactate measurement (mol es/volume) - 10/01/19 16:25 Serum or plasma lactate measurement (moles/volume) 1.20 mmol/L 0.50-2.00 Serum or plasma troponin i.cardiac measu rement (mass/volume) - 10/01/19 16:25 Serum or plasma troponin i.cardiac measurement (mass/v olume) < ng/mL <0.028 Encounters ACCT No. Visit Date/Time Discharge Status Pt. Type Provider Facility Loc./Unit Complaint [id number] 09/27/2019 10:46:00 09/27/2019 23:59 :00 DIS Outpatient JENAE RAMESH [id number] 09/22/2019 11:51:00 09/22/2019 15:00 :00 DIS Outpatient Ricco Levi [id number] 09/20/2019 22:15:00 09/21/2019 00:48 :00 DIS Outpatient ANOOP KIMBROUGH [id number] 05/10/2018 18:00:00 05/16/2018 15:45: 00 DIS Inpatient Sapphire Corona [facility] enter MED-SURG [id number] 01/23/2018 00:00:00 01/23/2018 23:59: 00 DIS Outpatient Nigel Casillas [id number] 08/10/2017 12:45:00 08/10/2017 23:59: 00 DIS Outpatient GADIEL JENAE [id number] 02/08/2019 14:38:43 Document Registration [id number] 05/10/2018 14:42:25 Document Registration [id number] 05/10/2018 18:00:00 Document Registration [id number] 08/31/2019 08:58:00 23:59:59 CLS Outpatient ERUM SAMSON [facility] ONC [id number] 01/12/2019 09:58:00 00:01:00 DIS Outpatient ERUM SAMSON [facility] ONC [id number] 11/03/2018 10:19:00 00:01:00 DIS Outpatient ERUM SAMSON [facility] ONC [id number] 09/26/2018 13:11:00 00:01:00 DIS Outpatient ERUM SAMSON [facility] ONC [id number] 05/04/2018 18:10:00 019 18:15:00 DIS Inpatient EUGENIA AYERS, CAROLINE Kovacs [facility] 4TH INFUENZA A SYNDROME,HEM ORRHAGIC ANEMIA [id number] 04/30/2018 22:59:00 019 02:04:00 DIS Emergency SAMANTHA AYERS, SHASTA Lamas [facility] ER ACHY,HEADACHE,C ONGESTED [id number] 03/14/2018 10:48:00 018 14:00:00 DIS Outpatient THOMAS ESQUIVEL MD [facility] ENDO IRON DEF ANEMIA/OCCULT POSITIVE STOOLS [id number] 03/08/2018 05:50:00 018 14:24:00 DIS Outpatient THOMAS ESQUIVEL MD [facility] PREOP COLONOSCOPY/EGD [id number] 07/12/2017 06:13:00 018 08:53:00 DIS Emergency ABIDA AYERS, URSZULA Vasquez [facility] ER DIZZY [id number] 07/02/2017 09:06:00 018 23:59:59 CLS Outpatient MARIA ELENA DUDLEY MD [facility] AR,CAROTID ARTERY STENO SIS [id number] 09/12/2016 04:05:00 017 13:07:00 DIS Outpatient SE JUSTICE MD [facility] RT WRIST INJURY [id number] 03/30/2016 08:41:00 017 23:59:59 CLS Outpatient ALEX LO [facility] AR,HTN, [id number] 04/04/2015 12:39:00 016 23:59:59 CLS Outpatient JENAE RAMESH DO [facility] AGE-RELATED OS TEOPOROSIS M81.0 [id number] 02/28/2015 07:43:00 015 23:59:59 CLS Outpatient MARIA ELENA DUDLEY MD [facility] AR, CAROTID ARTERY STEN OSIS, HTN, HYPERLIPIDEMIA [id number] 11/18/2014 14:00:00 015 23:59:59 CLS Outpatient АНДРЕЙ KAMARA APRN [facility] QUICK [id number] 01/23/2014 10:46:00 014 23:59:59 CLS Outpatient MARIA ELENA DUDLEY MD [facility] AR,HTN,HLP,SKYLER,PERIPHER AL EDEMA [id number] 12/14/2012 07:37:00 013 23:59:59 CLS Outpatient SERGIO HERNANDEZ MD [facility] RAD CHEST PAIN [id number] 12/12/2012 10:35:00 23:59:59 CLS Outpatient SERGIO HERNANDEZ MD [facility] CARD CHEST PAIN [id number] 12/08/2012 09:19:00 23:59:59 CLS Outpatient SERGIO HERNANDEZ MD [facility] LAB CP,ABN ECH,LOW MG,LOW LIYA,ELEVATED ALK PHOS [id number] 12/05/2012 22:00:00 13:00:00 DIS Inpatient OCTAVIA AYERS, MARIA ELENA Fitzgerald [facility] 4TH CHEST PAIN [id number] 10/25/2019 08:30:00 P EN Preadmit PURVI LO [facility] CAROTID ART STENOSIS,AR,HTN,DYSPNEA,HYPERLIPIDEMIA [id number] 10/24/2019 10:00:00 P EN Preadmit PURVI LO [facility] CAROTID ART STENOSIS,AR,HTN,DYSPNEA,HYPERLIPIDEMIA [id number] 10/01/2019 14:13:00 Document Registration [id number] 06/30/2012 08:32:00 Document Registration [id number] 02/01/2012 08:03:00 Document Registration [id number] 01/29/2012 08:02:00 Document Registration [id number] 01/02/2010 09:25:00 Document Registration
--- NOTE | 2019-10-01 19:30 | NUR ---
CHRISTOS BAGLEY admitted to room 413-1, with an admitting diagnosis of Generalized Weakness; Dizziness; Dyspnea on Exertion and Hypertension, on 10/01/19 from ED via hospital bed, accompanied by staff.CHRISTOS BAGLEY introduced to surroundings, call light, bed controls, phone, TV, temperature control, lights, meal times, smoking policy, visitor policy, side rail policy, bathrooms and showers. Patient Rights given to patient in the handbook. CHRISTOS BAGLEY verbalizes understanding that [facility] is not responsible for the loss or damage to any personal effects or valuables that are kept in the patients posession during their hospitalization. Patient and/or family were informed about the Rapid Response Team and its purpose.
[2019-10-01 19:37] VITALS: BP 142/62
[2019-10-01] MEDS ORDERED: cloNIDine 0.1 MG (CATAPRES) TAB PO PRN (21:30)
[2019-10-01] MEDS: D5 1/2 NS W/KCL 20 MEQ/L 1,000 ML IV SCH (21:56)
[2019-10-01] MEDS: ONDANSETRON 4 MG/2 ML (SDV) Z0FRAN IV PRN (21:57)
[2019-10-01] MEDS: ALPRAZolam 0.25 MG (XANAX) TAB PO PRN (22:55)
[2019-10-01 23:58] VITALS: BP 126/58
[2019-10-02 04:52] LABS: BASOPHILS % (AUTO) 0 % (0-10); EOSINOPHILS # (AUTO) 0.3 10^3/uL (0.0-0.3); EOSINOPHILS % (AUTO) 3 % (0-10); HEMATOCRIT 40 % (35-52); LYMPHOCYTES # (AUTO) 1.5 X 10^3 (1.0-4.0); LYMPHOCYTES % (AUTO) 17 % (12-44); MEAN CORPUSCULAR HEMOGLOBIN 31 PG (25-34); MEAN CORPUSCULAR HGB CONC 35 G/DL (32-36); MEAN CORPUSCULAR VOLUME 88 FL (80-99); MEAN PLATELET VOLUME 9.1 FL (7.4-10.4); MONOCYTES % (AUTO) 11 % (0-12); NEUTROPHILS # (AUTO) 5.9 X 10^3 (1.8-7.8); NEUTROPHILS % (AUTO) 68 % (42-75); PLATELET COUNT 197 10^3/uL (130-400); RED CELL DISTRIBUTION WIDTH 14.1 % (10.0-14.5); WHITE BLOOD COUNT 8.7 10^3/uL (4.3-11.0)
[2019-10-02 04:56] VITALS: BP 127/58
[2019-10-02 05:20] LABS: CHLORIDE 104 MMOL/L (98-107); POTASSIUM 3.2 MMOL/L (3.6-5.0); SODIUM 137 MMOL/L (135-145)
[2019-10-02 05:21] LABS: CALCIUM 7.9 MG/DL (8.5-10.1)
[2019-10-02 05:22] LABS: GLUCOSE 118 MG/DL (70-105)
[2019-10-02 05:23] LABS: TOTAL PROTEIN 5.5 GM/DL (6.4-8.2)
[2019-10-02 05:24] LABS: BILIRUBIN,TOTAL 1.3 MG/DL (0.1-1.0); CARBON DIOXIDE 23 MMOL/L (21-32)
[2019-10-02 05:26] LABS: ALKALINE PHOSPHATASE 60 U/L (40-136); GFR ESTIMATED > 60
[2019-10-02 05:27] LABS: BUN/CREATININE RATIO 7
[2019-10-02 05:29] LABS: ALANINE AMINOTRANSFERASE 9 U/L (0-55)
[2019-10-02] MEDS ORDERED: KCL 20 MEQ TAB (K-DUR) PO ONE ×3 (06:26→08:30)
[2019-10-02] MEDS: KCL 20 MEQ TAB (K-DUR) PO SCH (06:32)
[2019-10-02] MEDS: ONDANSETRON 4 MG/2 ML (SDV) Z0FRAN IV PRN (06:33)
[2019-10-02] MEDS: ALPRAZolam 0.25 MG (XANAX) TAB PO PRN ×2 (08:00→17:13)
[2019-10-02] MEDS: D5 1/2 NS W/KCL 20 MEQ/L 1,000 ML IV SCH ×2 (09:56→23:43)
--- NOTE | 2019-10-02 10:07 | History & Physical-Hospitalist ---
History of Present Illness HPI/Chief Complaint Pt is a 83yoCF with a PMH of HTN and glaucoma who presented to the ER due to weakness and nausea x 10 days. She states that she has not felt well for 10-11 days. She was seen at [facility] and was diagnosed with a UTI and was discharged home. She continued to not feel well and went back to the ER. She was again discharged home and was told her BP was high and to follow up with her PCP and manager nc. She saw Dr Valerio and was started on Norvasc. She then saw Dr Alicea and her norvasc was increased. At some point in there she had a CT of her abdomen and was told it showed "diverticulitis, hiatal hernia, and ulcer" per the ER note. We do not have records of this yet. This morning she states she feels no better. She is still nauseated and dry heaving but not able to get anything up. She reports profound weakness and HARRISON. She was to have an echo done today by Dr Valerio and possibly a stress test. She is also requesting lactulose as she has not had a BM for 3-4 days. Source: patient Date Seen 10/02/19 Time Seen by a Provider: 10:07 Attending Physician Tera Alicea DO PCP Tera Alicea DO Referring Physician Date of Admission Oct 01, 2019 at 18:06 Home Medications & Allergies Home Medications Reviewed patient Home Medication Reconciliation performed by pharmacy medication reconciliations sample prep technician and/or nursing. Patients Allergies have been reviewed. Allergies Allergies Coded Allergies Penicillins (Verified Allergy, Unknown, 10/01/19) Past Ulgdkhs-Pkwxst-Ellfda Hx Past Med/Social Hx: Reviewed and Corrections made Patient Social History Alcohol Use: Denies Use Recreational Drug Use: No Smoking Status: Never a Smoker 2nd Hand Smoke Exposure: No Recent Foreign Travel: No Contact w/other who traveled: No Recent Hopitalizations: No Recent Infectious Disease Expo: No Immunizations Up To Date Tetanus Booster (TDap): More than 5yrs Pediatric: Yes Date of Pneumonia Vaccine: Apr 30, 2018 Date of Influenza Vaccine: Dec 27, 2017 Seasonal Allergies Seasonal Allergies: No Past Medical History Surgeries: Adenoidectomy, Appendectomy, Eye Surgery, Gallbladder, Hysterectomy, Orthopedic, Parathyroidectomy, Tonsillectomy Cardiac: High Cholesterol, Hypertension, Irregular Heartbeat Reproductive: No Sexually Transmitted Disease: No HIV/AIDS: No Menopausal Gastrointestinal: Gastroesophageal Reflux, Chronic Constipation, Diverticulosis, Hiatal Hernia, Ulcer Musculoskeletal: Arthritis, Fractures Endocrine: Parathyroid Disease HEENT: Cataract, Glaucoma Loss of Vision: Denies Hearing Impairment: Denies History of Blood Disorders: No Adverse Reaction to Blood Tan: No Family History Reviewed Nursing Family Hx Completed stroke Hypertension Myocardial infarction PSH: -EGD'S--02/2018--ULCERS/GASTRIC EROSIONS; LAST ONE 04/2018--HEALED ULCERS -COLONOSCOPIES--LAST ONE 02/2018--DIVERTICULAR DISEASE Review of Systems Constitutional: No chills, No fever; malaise, weakness Respiratory: No cough; dyspnea on exertion Cardiovascular: No chest pain Gastrointestinal: see HPI, constipation, loss of appetite, nausea; No vomiting Genitourinary: No decreased output, No dysuria Musculoskeletal: no symptoms reported Skin: no symptoms reported Psychiatric/Neurological: No Symptoms Reported Physical Exam Physical Exam Vital Signs Vital Signs - First Documented 10/01/19 10/01/19 14:08 20:00 Temp 36.4 Pulse 79 Resp 20 B/P (MAP) 193/89 (123) Pulse Ox 97 O2 Delivery Room Air Capillary Refill : Less Than 3 Seconds Height, Weight, BMI Height: 5'2.00" Weight: 188lbs. 1.6oz. 85.614010co; 33.10 BMI Method:Stated General Appearance: No Apparent Distress, WD/WN HEENT: PERRL/EOMI, Moist Mucous Membranes Neck: Supple; No Thyromegaly Respiratory: Lungs Clear, No Respiratory Distress Cardiovascular: Regular Rate, Rhythm, No Murmur Gastrointestinal: Normal Bowel Sounds, Non Tender, Soft Extremity: No Calf Tenderness, No Pedal Edema Neurologic/Psychiatric: Alert, Oriented x3, Normal Mood/Affect Results Results/Procedures Labs Laboratory Tests 10/01/19 13:50 10/02/19 04:42 Patient resulted labs reviewed. Imaging: Reviewed Imaging Report Imaging [facility], [place] NAME: CHRISTOS BAGLEY [facility] REC#: [id number] PT STATUS: REG ER : 1935 PHYSICIAN: MELANIE WEST DO ADMIT DATE: 10/01/19/ER Signed Date of Exam:10/01/19 CT LILY CHEST/NOANG ABD-PELV W Procedure: CTA chest, abdomen and pelvis. Technique: Thin axial sections through the chest, abdomen and pelvis were obtained following intravenous contrast bolus. Multiplanar MIP images were reconstructed and reviewed. All CT scans use one or more of the following dose optimizing techniques: automated exposure control, MA and/or KvP adjustment based on patient size and exam type or iterative reconstruction. Indication: Chest and abdominal pain with nausea and vomiting for 10 days. Comparison: None. Discussion: CTA chest: No pulmonary embolus identified. The thoracic aorta is normal in caliber and configuration. Mild cardiomegaly. No pleural or pericardial fluid. Atelectasis noted within the lung bases. No focal consolidation or suspicious pulmonary lesion. No adenopathy identified. No acute osseous abnormality identified. CT abdomen/pelvis: Moderate hiatal hernia. The gallbladder is surgically absent. Fatty atrophy of the pancreas is noted. Spleen is normal in size. The adrenal glands are unremarkable. Cysts are noted within the kidneys. No hydronephrosis. The aorta is normal in caliber and contains mild atherosclerotic plaque. Urinary bladder is decompressed by a Mas catheter. Uterus is surgically absent. Mild diverticulosis with no secondary evidence for diverticulitis. No constipation. No abnormal small bowel loops are identified. No evidence for appendicitis. No ascites or pathologically enlarged lymph node is identified. Severe L5 compression fracture, age indeterminate. No retropulsion. Impression: 1. No acute abnormality identified within the chest, abdomen or pelvis. Chronic changes as discussed. 2. Age-indeterminate severe L5 compression fracture. Dictated by: Dictated on workstation # [id number] Dict: 10/01/19 1530 Trans: 10/01/19 1635 [facility] [id number] Interpreted by: DUGLAS CLAY MD Electronically signed by: DUGLAS CLAY MD 10/01/19 1636 [facility], [place] NAME: CHRISTOS BAGLEY Amilcar [facility] REC#: [id number] PT STATUS: REG ER : 1935 PHYSICIAN: MELANIE WEST DO ADMIT DATE: 10/01/19/ER Signed Date of Exam:10/01/19 CT HEAD WO-R/O STROKE Procedure: CT head w/o, r/o stroke. Technique: Multiple contiguous axial images were obtained through the brain without the use of intravenous contrast. Auto Exposure Controls were utilized during the CT exam to meet ALARA standards for radiation dose reduction. Indication: Altered mental status with vomiting for 10 days. Comparison: 09/11/2016. Discussion: No acute intracranial hemorrhage, mass, midline shift or hydrocephalus. White matter hypoattenuation is nonspecific, greater than expected for age related chronic small vessel ischemic disease, stable. The ventricles and sulci are normal in size and configuration for age. The orbits, sinuses, mastoid air cells and calvarium are unremarkable. Impression: No acute intracranial abnormality identified. Dictated by: Dictated on workstation # [id number] Dict: 10/01/19 1505 Trans: 10/01/19 1635 [facility] [id number] Interpreted by: DUGLAS CLAY MD Electronically signed by: DUGLAS CLAY MD 10/01/19 1635 Assessment/Plan Admission Diagnosis Intractable nausea Generalized Weakness Admission Status: Observation Assessment and Plan Intractable nausea Generalized Weakness Scopolamine patch Zofran prn Add PPI PT/OT Request records from [facility] Elevated troponin HTN Cardiology consulted, appreciate recs troponin has trended up over night May be due to HTN Hypokalemia Replacing in fluids Constipation Resume home lactulose Clinical Quality Measures DVT/VTE Risk/Contraindication: Risk Factor Score Per Nursin RFS Level Per Nursing on Admit: 4+=Very High CAROLINE BELLO MD Oct 02, 2019 10:07
[2019-10-02] MEDS ORDERED: PANTOPRAZOLE 40 MG (PROTONIX) VIAL IV ONE (10:15)
[2019-10-02] MEDS ORDERED: LACTULOSE SYRUP 10GM/15ML (ENULOSE) 30ML UDC PO PRN (10:15)
[2019-10-02] MEDS ORDERED: LACTULOSE SYRUP 10GM/15ML (ENULOSE) 30ML UDC PO ONE (10:15)
--- NOTE | 2019-10-02 10:23 | NUR ---
CM/SS visited with the patient for discharge planning. Home: The patient reports that she is currently living alone at home. She states that prior to this hospitalization, she gets around the house independently with the use of a walker. The patient has two adult children that live in town. She states that her son and daughter take turns bringing her dinner every night. The patient does have a house keeper. Paid caregivers: None. Home Health: The patient reports she has never had home health in the past. DME: The patient is a client of [facility]. She has a ohwe-ajvybyy-sjtcey with a seat. The patient has an additional standard walker at home that is second hand. The patient also has a shower seat from her late . The patient reported that she does not have any additional needs at this time or further questions. CM/SS will continue to follow for discharge planning.
--- NOTE | 2019-10-02 10:30 | NUR ---
IRF Evaluation Determination: Accepted Chart review complete and findings discussed with Dr. Corona - patient accepted. Dr. Monroe and SW notified of acceptance. Anticipated date, unknown. Thank you for this referral.
[2019-10-02 11:44] VITALS: BP 121/60
--- NOTE | 2019-10-02 11:44 | Physical Therapy Evaluation ---
PT Evaluation-General Medical Diagnosis Admission Date Oct 01, 2019 at 18:06 Medical Diagnosis: generalized weakness/dizziness Onset Date: Oct 01, 2019 Therapy Diagnosis Therapy Diagnosis: generalized weakness/debility Height/Weight Height (Feet): 5 Height (Inches): 2.00 Weight (Pounds): 188 Weight (Ounces): 1.6 Precautions Precautions/Isolations: Standard Precautions Weight Bear Status Right Lower Extremity: Right Weight Bearing/Tolerated Left Lower Extremity: Left Weight Bearing/Tolerated Referral Physician: Mabel Reason for Referral: Evaluation/Treatment Medical History Pertinent Medical History: HTN Additional Medical History parathyroid disease Current History ER via POV secondary to multiple ER visits secondary to abdominal pain, N&V and weakness Reviewed History: Yes Social History Home: Single Level Current Living Status: Alone Prior Prior Level of Function SCALE: Activities may be completed with or without assistive devices. 1-Bzbnvkmafd-hlomhto completes the activity by him/herself with no assistance from a helper. 5-Set-up or Clean-up Assistance-helper sets up or cleans up; patient completes activity. [place] assists only prior to or following the activity. 4-Supervision or Touching Assistance-helper provides verbal cues and/or touching/steadying and/or contact guard assistance as patient completes activity. Assistance may be provided throughout the activity or intermittently. 3-Partial/Moderate Assistance-helper does LESS THAN HALF the effort. [place] lifts, holds or supports trunk or limbs, but provides less than half the effort. 2-Substantial/Maximal Assistance-helper does MORE THAN HALF the effort. [place] lifts or holds trunk or limbs and provides more than half the effort. 0-Vxcuzanaz-uccjvl does ALL the effort. Patient does none of the effort to complete the activity. Or, the assistance of 2 or more helpers is required for the patient to complete the activity. If activity was not attempted, code reason: 7-Patient Refused. 9-Not Applicable-not attempted and the patient did not perform the activity before the current illness, exacerbation or injury. 10-Not Attempted due to Environmental Limitations-(lack of equipment, weather restraints, etc.). 88-Not Attempted due to Medical Conditions or Safety Concerns. Bed Mobility: 6 Transfers (B,C,W/C): 6 Gait: 6 Indoor Mobility (Ambulation): Independent Prior Devices Use: Walker (4WW) PT Evaluation-Current Subjective Patient c/o fatigue and weakness with continued N&V. Objective Patient Orientation: Normal For Age Attachments: IV ROM/Strength ROM Lower Extremities bilateral LE WFL Strength Lower Extremities 3+/5 grossly bilateral LE Integumentary/Posture Integumentary refer to nursing notes Bladder Incontinence: Yes Posture WFL Neuromuscular (Tone, Coordination, Reflexes) grossly intact Sensory Vision: Functional Hearing: Functional Sensation Right Lower Extremit: Intact Sensation Left Lower Extremity: Intact Transfers Roll Left to Right (QC): 3 Lying to Sitting/Side of Bed(Q: 3 Sit to Stand (QC): 3 Chair/Sws-gn-Fuwll Xfer(QC): 3 Gait Does the Patient Walk?: Yes Mode of Locomotion: Walk Anticipated Mode of Locomotion: Walk Walk 10 feet (QC): 3 Walk 50 ft with 2 Turns(QC): 3 Walk 150 ft (QC): 3 Distance: 150' Gait Assistive Device: Walker 4 Wheeled Comments/Gait Description shuffle gait sequence Balance Sitting Static: Normal Sitting Dynamic: Normal Standing Static: Fair Standing Dynamic: Fair Assessment/Needs 83 y.o. female, will benefit from skilled PT to address functional strength and mobility to improve current LOF. From a PT standpoint, patient would benefit from ARU due to weakness, debility and inability to care for self. Rehab Potential: Fair PT Longterm Goals Longterm Goals PT Garland Maker Goals Time Frame: Oct 20, 2019 Roll Left & Right (QC): 6 Sit to Lying (QC): 6 Lying-Sitting on Side/Bed(QC): 6 Sit to Stand (QC): 6 Chair/Lhz-vg-Mifsd Xfer(QC): 6 Toilet Transfer (QC): 6 Does the Patient Walk: Yes Walk 10 feet (QC): 6 Walk 50ft with 2 Turns (QC): 6 Walk 150 ft (QC): 6 Walking 10ft on Uneven Surface: 6 1 Step (curb) (QC): 6 PT Plan Problem List Problem List: Activity Tolerance, Functional Strength, Safety, Balance, Gait, Transfer, Bed Mobility Treatment/Plan Treatment Plan: Continue Plan of Care Treatment Plan: Bed Mobility, Education, Functional Activity Jasper, Functional Strength, Gait, Safety, Therapeutic Exercise, Transfers Treatment Duration: Oct 20, 2019 Frequency: 6 times per week Estimated Hrs Per Day: .25 hour per day Patient and/or Family Agrees t: Yes Discharge Recommendations Therapy Discharge Recommendati: Other, See Comments (ARU) Time/GCodes Time In: 1114 Time Out: 1127 Total Billed Treatment Time: 13 Total Billed Treatment 1 visit EVMod 13 min NIKHIL TORRES PT Oct 02, 2019 11:44
[2019-10-02] MEDS ORDERED: LACT10SO63 PO (11:51)
[2019-10-02] MEDS ORDERED: CLOT15CR28 TOP (11:51)
[2019-10-02] MEDS ORDERED: ONDA-105 PO (11:51)
[2019-10-02] MEDS ORDERED: AMLO5TAB9 PO (11:51)
[2019-10-02] MEDS ORDERED: CLON0.1T PO (11:51)
[2019-10-02] MEDS ORDERED: ASPI-983 PO (11:53)
[2019-10-02] MEDS ORDERED: DOCU-143 PO (11:53)
[2019-10-02] MEDS ORDERED: PRED5DRO OD (11:53)
[2019-10-02] MEDS ORDERED: BRIM5DRO OS (11:53)
--- NOTE | 2019-10-02 11:57 | NUR ---
SPOKE WITH PT (SHE HAD A MED LIST FROM HER PCP) AND WENT THRU THE EXT MED HISTORY TO COMPLETE THE MED REC AMLODIPINE 5MG- DIRECTIONS ON THE EXT MED HISTORY SHOW 1 TAB DAILY HOWEVER PT SAID DR. DUDLEY WANTED HER TO TAKE 10 MG DAILY. SHE IS TAKING 2 TABS DAILY TO USE UP THE MEDS SHE ALREADY HAD AT HOME COMBIGAN- PT ONLY USES IN THE LEFT EYE PT SAYS SHE USES ANOTHER EYE DROP IN THE RIGHT EYE BUT CANT REMEMBER THE NAME. SHE SAYS SHE GETS IT FROM HER EYE DR IN [place] AND CANT REMEMBER THE DRS NAME. I WILL FOLLOW UP WITH HER PCP TO SEE IF THEY HAVE SOME OF THE INFORMATION. PT USES B-12 INJECTIONS ONCE MONTHLY BUT SHE DOESNT THINK SHE TOOK AN INJECTION IN AUGUST AND HAS THE DATES WRITTEN DOWN AT HOME AND CANT RECALL WHEN HER NEXT ONE IS DUE (PT THINKS HER LAST DOSE WAS IN JULY 2019) OTC MEDS: ASPIRIN COLACE
--- NOTE | 2019-10-02 13:34 | Occupational Therapy Eval ---
OT Evaluation-General/PLF Medical Diagnosis Admission Date Oct 01, 2019 at 18:06 Medical Diagnosis: generalized weakness/dizziness Onset Date: Oct 01, 2019 Therapy Diagnosis Therapy Diagnosis: Decreased ADL status Height/Weight Height (Feet): 5 Height (Inches): 2.00 Weight (Pounds): 188 Weight (Ounces): 1.6 Precautions Precautions/Isolations: Standard Precautions Referral Physician: Mabel Referral Reason: Activity Tolerance, Self Care, Evaluation/Treatment, Strengthening/ROM Medical History Pertinent Medical History: HTN Additional Medical History HTN, glaucoma, irregular heartbeat, arthritis, fx, mod hiatal hernia, mild diverticulosis, L5 comp fx. Current History Pt admitted to ER with weakness/ nausea expanding over previous 10 days. Pt recently dx with UTI and was d/c home, returned to [place] and d/c home with high BP. Pt has not had BM in 4 days. Reviewed History: Yes Social History Home: Single Level Current Living Status: Alone ADL-Prior Level of Function SCALE: Activities may be completed with or without assistive devices. 6-Acmnnlupek-jgqlzez completes the activity by him/herself with no assistance from a helper. 5-Set-up or Clean-up Assistance-helper sets up or cleans up; patient completes activity. Allred assists only prior to or following the activity. 4-Supervision or Touching Assistance-helper provides verbal cues and/or touching/steadying and/or contact guard assistance as patient completes activity. Assistance may be provided throughout the activity or intermittently. 3-Partial/Moderate Assistance-helper does LESS THAN HALF the effort. Allred lifts, holds or supports trunk or limbs, but provides less than half the effort. 2-Substantial/Maximal Assistance-helper does MORE THAN HALF the effort. Allred lifts or holds trunk or limbs and provides more than half the effort. 4-Iyymcwvmq-kjcyel does ALL the effort. Patient does none of the effort to complete the activity. Or, the assistance of 2 or more helpers is required for the patient to complete the activity. If activity was not attempted, code reason: 7-Patient Refused. 9-Not Applicable-not attempted and the patient did not perform the activity before the current illness, exacerbation or injury. 10-Not Attempted due to Environmental Limitations-(lack of equipment, weather restraints, etc.). 88-Not Attempted due to Medical Conditions or Safety Concerns. Self Care: Needed Some Help (IADLs and SBA for showering.) Functional Cognition: Independent DME/Equipment: Bath Chair DME/Equipment Comments 4WW, ramp, sc. Occupation: retired. Drive Self: No OT Current Status Subjective Pt seen in recliner, head rested backward; pt alert/ oriented though expresses fatigue and nauseous. Pt agrees to OT eval, though declines out of chair due to increased nausea. Pt declines pain. Mental Status/Objective Patient Orientation: Person, Place, Situation, Normal For Age Attachments: IV Current Hand Dominance: Left Upper Extremity ROM WFL BUE Upper Extremity Coordination WFL BUE Upper Extremity Sensation WFL BUE Upper Extremity Strength Decreased shoulder flexion: R: 3/5, L: 3/5 Decreased elbow flexion: R 3+/5, L 4/5 Boat Hoist Operator Helper strength: fair bilaterally. ADL-Treatment Eating (QC): 6 (Pt states able to bring spoon to mouth, states has been eating jello/ drinking; declines eating at this time.) Oral Hygiene (QC): 6 (Per clinical judgment pt would be IND while seated during oral hygiene. ) On/Off Footwear (QC): 7 (Pt declines bending due to nausea, based on pt weakness (UE) pt would require assist with this task.) Other Treatments Pt seen in chair. Pt educated on OT role. Pt provides hx: states fatigue/ nausea. Pt states IND within home, assist for IADLs outside of home and SBA for shower transfers from her children. Pt c/o current nausea though able to complete MMT/ ROM. Pt states walked with PT this morning, pt declines out of chair or footwear don/ doffing. Pt states she would not be able to doff socks nor don pants at this time. Pt states she is weak, pt educated on exercises to be completed on this date; pt educated on AROM of UEs to begin strength/ endurance training of UE for fx tasks. Pt nods in understanding. Pt Education OT Patient Education: Correct positioning, Exercise program, Home exercise program, Purpose of tx/functional activities Teaching Recipient: Patient Teaching Methods: Demonstration, Discussion Response to Teaching: Verbalize Understanding, Return Demonstration OT Last Ironer Goals Assisted Goals Time Frame: Oct 09, 2019 Eating (QC): 6 Oral Hygiene (QC): 6 Toileting Hygiene (QC): 6 Shower/Bathe Self (QC): 4 Upper Body Dressing (QC): 6 Lower Body Dressing (QC): 6 On/Off Footwear (QC): 6 Additional Goals: 1-Demonstrate ADL Tasks, 2-Verbalize Understanding, 3- ImproveStrength/Jasper 1=Demonstrate adherence to instructed precautions during ADL tasks. 2=Patient will verbalize/demonstrate understanding of assistive devices/modifi cations for ADL. 3=Patient will improve strength/tolerance for activity to enable patient to perform ADL's. OT Education/Plan Problem List/Assessment Assessment: Decreased Activ Tolerance, Decreased UE Strength, Dependent Transfers, Impaired Bed Mobility, Impaired Funct Balance, Impaired I ADL's, Impaired Self-Care Skills Discharge Recommendations Plan/Recommendations: Continue POC Therapy Discharge Recommendati: Scheduled Assistance, Home & Family Equpiment Recommendations-D/C: Extended Bath Bench, Rails on Tub/Shower, Hip Kit, Rails on Toilet Treatment Plan/Plan of Care Treatment,Training & Education: Yes Patient would benefit from OT for education, treatment and training to promote independence in ADL's, mobility, safety and/or upper extremity function for ADL's. Plan of Care: ADL Retraining, Functional Mobility, UE Funct Exercise/Act Treatment Duration: Oct 09, 2019 Frequency: 5 times per week Estimated Hrs Per Day: .25 hour per day Agreement: Yes Rehab Potential: Fair Time/GCodes Start Time: 12:05 Stop Time: 12:15 Total Time Billed (hr/min): 10 Billed Treatment Time 1, EVL (10) SHIRLEY LOPEZ OTR Oct 02, 2019 13:34
--- NOTE | 2019-10-02 15:11 | Consultation-Cardiology ---
HPI-Cardiology Cardiology Consultation: Date of Consultation 10/02/19 Date of Admission Attending Physician Tera Alicea DO Admitting Physician Tera Alicea DO Consulting Physician Bethanie ZAMUDIO MD HPI: Time Seen by a Provider: 13:00 Chief Complaint: Shortness of breath This is a 83-year-old lady with history of hypertension who follows with Dr. Valerio and Dr. Alicea. She presents to the ER with complains of weakness and nausea for the last one to 2 weeks. She was initially diagnosed at at outside ER with UTI but continues to feel unwell. She is also been struggling with poor blood pressure control recently. She also complains of shortness of breath. Review of Systems-Cardiology Review of Systems Constitutional: As described under HPI; No As described under HPI, No no sy mptoms reported, No chills, No fever, No lightheadedness; tiredness Eyes: No As described under HPI, No no symptoms reported, No blindness, No blurred vision, No contact lenses, No drainage, No decreased acuity, No foreign body sensation, No pain, No vision change Ears/Nose/Throat: No As described under HPI, No no symptoms reported, No ch ronic hearing loss, No ear discharge, No ear pain, No nasal drainage, No ulcerations Respiratory: No no symptoms reported; As described under HPI; No As described under HPI, No cough, No orthopnea, No shortness of breath, No SOB with excertion Cardiovascular: No no symptoms reported; As described under HPI; No As described under HPI, No chest pain, No edema, No irregular heart rate, No lightheadedness, No palpitations Gastrointestinal: No no symptoms reported, No As described under HPI, No abdomen distended, No abdominal pain, No blood streaked bowels, No constipation, No diarrhea, No nausea, No vomiting; nausea/vomiting/diarrhea; No stool coloration changes Genitourinary: No As described under HPI, No burning, No dysuria, No discharge, No frequency, No flank pain, No hematuria, No urgency : Yes : No Skin: No rash, No skin related problems, No ulcerations Psychiatric/Neurological: No anxiety, No depression, No seizure, No focal weakness, No syncope Hematologic: No bleeding abnormalities [id number]-Phpfpg Hx Patient Social History Alcohol Use: Denies Use Recreational Drug Use: No Smoking Status: Never a Smoker 2nd Hand Smoke Exposure: No Recent Foreign Travel: No Recent Infectious Disease Expo: No Immunizations Up To Date Tetanus Booster (TDap): More than 5yrs Date of Pneumonia Vaccine: Apr 30, 2018 Date of Influenza Vaccine: Dec 27, 2017 Past Medical History PMH As described under Assessment. Family Medical History Family History: Completed stroke Hypertension Myocardial infarction Allergies and Home Medications Allergies Coded Allergies: Penicillins (Verified Allergy, Unknown, 10/01/19) Home Medications Amlodipine Besylate 5 Mg Tablet, 10 MG PO DAILY, (Reported) TAKES 2 (5MG) TABS Aspirin 81 Mg Tablet.dr, 81 MG PO DAILY, (Reported) Benazepril HCl 40 Mg Tab, 40 MG PO DAILY, (Reported) Brimonidine Tartrate/Timolol 5 Ml Drops, 1 DROP OS BID, (Reported) Clonidine HCl 0.1 Mg Tablet, 0.1 MG PO DAILY PRN for BP OVER 160, (Reported) Clotrimazole 15 Gm Cream..g., 1 APPLIC TOP DAILY PRN for RASH, (Reported) Cyanocobalamin 1,000 Mcg/Ml Inj, 1,000 MCG INJ MONTHLY, (Reported) Docusate Sodium 100 Mg Capsule, 100 MG PO DAILY PRN for CONSTIPATION-1ST LINE, (Reported) Lactulose 10 Gm/15 Ml Solution, 15 ML PO DAILY PRN for CONSTIPATION-3RD LINE, (Reported) Metoprolol Succinate 25 Mg Tab.er.24h, 25 MG PO 1900, (Reported) Ondansetron HCl 4 Mg Tablet, 0.4 MG PO TID PRN for NAUSEA/VOMITING-1ST LINE, (Reported) Pantoprazole Sodium 40 Mg Tablet.dr, 40 MG PO 1900, (Reported) Patient Home Medication List Home Medication List Reviewed: Yes Physical Exam-Cardiology Physical Exam Vital Signs/I&O 10/02/19 10/02/19 10/02/19 10/02/19 04:56 06:36 08:03 11:44 Temp 36.3 36.1 Pulse 69 70 67 Resp 17 20 B/P (MAP) 127/58 (81) 121/60 (80) Pulse Ox 95 93 O2 Delivery Room Air Room Air Room Air 10/02/19 00:00 Intake Total 520 ml Output Total 300 ml Balance 220 ml Capillary Refill : Less Than 3 Seconds Constitutional: appears stated age, AAO x 3; No apparent distress; well-devel oped, well-nourished HEENT: PERRL; No discharge; hearing is well preserved, oral hygience is good; No ulceration, No xanthelasmas are seen Neck: No carotid bruit; carotid pulses are 2 + bilaterally Respiratory: chest is bilaterally symmetric, lungs clear to auscultation Cardiovascular: regular rate-rhythm, S1 and S2 Gastrointestinal: soft, audible bowel sounds; No spleenomegaly Rectal: deferred Extremities: normal range of motion, non-tender, normal inspection; No clubbing, No cyanosis, No significant edema Neurologic/Psychiatric: no motor/sensory deficits, alert, normal mood/affect, o riented x 3, power is 5/5 both on sides Skin: normal color; No rash, No ulcerations Data Review Labs Laboratory Tests 10/01/19 16:25: Lactic Acid Level 1.20, Troponin I < 0.028 10/01/19 22:35: Troponin I 0.048H 10/02/19 04:42: Troponin I 0.094H, White Blood Count 8.7, Red Blood Count 4.55, Hemoglobin 14.0, Hematocrit 40, Mean Corpuscular Volume 88, Mean Corpuscular Hemoglobin 31, Mean Corpuscular Hemoglobin Concent 35, Red Cell Distribution Width 14.1, Platelet Count 197, Mean Platelet Volume 9.1, Neutrophils (%) (Auto) 68, Lymphocytes (%) (Auto) 17, Monocytes (%) (Auto) 11, Eosinophils (%) (Auto) 3, Basophils (%) (Auto) 0, Neutrophils # (Auto) 5.9, Lymphocytes # (Auto) 1.5, Monocytes # (Auto) 1.0, Eosinophils # (Auto) 0.3, Basophils # (Auto) 0.0, Sodium Level 137, Potassium Level 3.2L, Chloride Level 104, Carbon Dioxide Level 23, Anion Gap 10, Blood Urea Nitrogen 5L, Creatinine 0.70, Estimat Glomerular Filtration Rate > 60, BUN/Creatinine Ratio 7, Glucose Level 118H, Calcium Level 7.9L, Corrected Calcium 8.7, Total Bilirubin 1.3H, Aspartate Amino Transf (AST/SGOT) 15, Alanine Aminotransferase (ALT/SGPT) 9, Alkaline Phosphatase 60, Total Protein 5.5L, Albumin 3.0L 10/02/19 10:58: Troponin I 0.061H Microbiology 10/01/19 Blood Culture - Preliminary, Resulted No growth ECG Impression ECG Initial ECG Rhythm: Normal Sinus Initial ECG Impression: Nonspecific Changes A/P-Cardiology Assessment/Admission Diagnosis Nausea, diverticulitis, Shortness of breath, Acute on chronic diastolic congestive heart failure, Borderline positive troponin, Hypertensive heart disease Plan Nausea, diverticulitis, defer to the primary team. Shortness of breath, echocardiogram shows moderate LVH with moderate diastolic dysfunction. Normal LV function. Moderate tricuspid regurgitation. Acute on chronic mild diastolic congestive heart failure, I will hold off on giving Lasix for now. Shortness of breath is likely multifactorial. Borderline positive troponin, nuclear stress test is recommended. Hypertensive heart disease, aggressive blood pressure control. Thank you for your consultation. Please call me if you have any questions. Kalpana Zamudio MD, FACP, FACC, FSCAI, FHRS, CCDS Interventional Cardiology Cardiac Electrophysiology Vascular Medicine and Endovascular Interventions Clinical Quality Measures DVT/VTE Risk/Contraindication: Risk Factor Score Per Nursin RFS Level Per Nursing on Admit: 4+=Very High Bethanie ZAMUDIO MD Oct 02, 2019 15:11
[2019-10-02 15:30] VITALS: BP 136/67
[2019-10-02] MEDS ORDERED: CLOTRIMAZOLE 1% CREAM (LOTRIMIN) 30 GM TOP PRN (15:30)
[2019-10-02] MEDS ORDERED: cloNIDine 0.1 MG (CATAPRES) TAB PO PRN (15:30)
--- NOTE | 2019-10-02 17:08 | NUR ---
C/O OF CHEST PAIN IN LEFT SIDE OF CHEST. RATES PAIN 7/10 WITH A HEAVINESS. EKG DONE . V/S= VG=324/71 P=80 R-20 O2 SAT=94% ON R/A
[2019-10-02] MEDS ORDERED: NITROGLYCERIN 0.4 MG SL TABS BTL 25'S SL PRN (18:00)
[2019-10-02 18:44] VITALS: BP 114/57
[2019-10-02] MEDS ORDERED: IBUPROFEN TABLET 200 MG TAB PO PRN (18:45)
[2019-10-02] MEDS ORDERED: IBUPROFEN TABLET 200 MG TAB PO NR (18:45)
--- NOTE | 2019-10-02 18:45 | NUR ---
1730 Dr. Zamudio notified EKG sent , orders for nitro s/l per chest pain protocol, 1800 - 1815 given x2 doses continue with pain reports of not getting worse but not getting better, 1830 Dr. Zamudio notified orders for ibuprofen 400mg now vital signs taken now b/p 114/57, pulse 73, o2 94% room air
[2019-10-02 19:59] VITALS: BP 106/59
[2019-10-02] MEDS: TIMOLOL MALEATE 0.5% 5 ML (TIMOPTIC) BTL OS SCH (20:29)
[2019-10-02] MEDS: BRIMONIDINE 0.2% (ALPHAGAN) OPHTH SOLN 5 ML BTL OS SCH (20:29)
[2019-10-02] MEDS ORDERED: NON-FORMULARY MEDICATION 1 EA EA (Brimonidine Tartrate/Timolol (Combigan Eye Drops) 1 DROP OS SCH (21:00)
[2019-10-03] VITALS (8 sets, daily range): BP systolic 134–153; BP diastolic 62–84
[2019-10-03 06:02] LABS: CHLORIDE 108 MMOL/L (98-107); POTASSIUM 4.6 MMOL/L (3.6-5.0); SODIUM 135 MMOL/L (135-145)
[2019-10-03 06:04] LABS: CALCIUM 7.9 MG/DL (8.5-10.1); GLUCOSE 106 MG/DL (70-105)
[2019-10-03] MEDS: POTASSIUM CL 10MEQ/50ML IVPB 50 ML IV SCH (06:04)
[2019-10-03] MEDS: KCL 20 MEQ TAB (K-DUR) PO SCH (06:04)
[2019-10-03 06:06] LABS: CARBON DIOXIDE 20 MMOL/L (21-32)
[2019-10-03 06:08] LABS: CREATININE SERUM 0.72 MG/DL (0.60-1.30); GFR ESTIMATED > 60
[2019-10-03 06:09] LABS: BUN/CREATININE RATIO 8
[2019-10-03] MEDS: TIMOLOL MALEATE 0.5% 5 ML (TIMOPTIC) BTL OS SCH ×2 (07:50→20:55)
[2019-10-03] MEDS: BRIMONIDINE 0.2% (ALPHAGAN) OPHTH SOLN 5 ML BTL OS SCH ×3 (07:51→20:54)
[2019-10-03] MEDS: PANTOPRAZOLE 40 MG (PROTONIX) VIAL IV SCH (07:52)
[2019-10-03] MEDS ORDERED: REGADENOSON 0.4 MG/5 ML SYR (LEXISCAN) IV ONE ×2 (09:00→11:32)
[2019-10-03] MEDS ORDERED: NON-FORMULARY MEDICATION 1 EA EA (Benazepril HCl 40 MG) PO SCH (09:00)
[2019-10-03] MEDS: CATHETER FLUSH 10 ML SYR IV PRN ×2 (09:31→11:38)
--- NOTE | 2019-10-03 09:35 | NUR ---
IR[facility] Met with patient to discuss details related to rehabilitation program. Patient agreeable to required therapy regimen and admission. Patient states, "I have enough sense about me to know I can't go home like this, right now." Anticipated admission date, 10/03 as she will be having a stress test, today.
--- NOTE | 2019-10-03 10:35 | NUR ---
TO [facility] FOR STRESS TEST PER W/C.
--- NOTE | 2019-10-03 10:41 | Physical Therapy Daily Note ---
PT Daily Note-Current Subjective Patient continues to report extreme fatigue but agrees to PT. Pain Numeric Pain Scale: 0-No Pain Location: No Pain Reported Mental Status Patient Orientation: Normal For Age Attachments: IV Transfers SCALE: Activities may be completed with or without assistive devices. 5-Mqtrzzcrpo-rtxbcfc completes the activity by him/herself with no assistance from a helper. 5-Set-up or Clean-up Assistance-helper sets up or cleans up; patient completes activity. Solomon assists only prior to or following the activity. 4-Supervision or Touching Assistance-helper provides verbal cues and/or touching/steadying and/or contact guard assistance as patient completes activity. Assistance may be provided throughout the activity or intermittently. 3-Partial/Moderate Assistance-helper does LESS THAN HALF the effort. Solomon lifts, holds or supports trunk or limbs, but provides less than half the effort. 2-Substantial/Maximal Assistance-helper does MORE THAN HALF the effort. Solomon lifts or holds trunk or limbs and provides more than half the effort. 5-Rsbtinrtw-zwxqfp does ALL the effort. Patient does none of the effort to complete the activity. Or, the assistance of 2 or more helpers is required for the patient to complete the activity. If activity was not attempted, code reason: 7-Patient Refused. 9-Not Applicable-not attempted and the patient did not perform the activity before the current illness, exacerbation or injury. 10-Not Attempted due to Environmental Limitations-(lack of equipment, weather restraints, etc.). 88-Not Attempted due to Medical Conditions or Safety Concerns. Sit to Lying (QC): 5 Sit to Stand (QC): 5 Weight Bearing Right Lower Extremity: Right Weight Bearing/Tolerated Left Lower Extremity: Left Weight Bearing/Tolerated Gait Training Does the Patient Walk?: Yes Distance: 150' Walk 10 feet (QC): 4 Walk 50 ft with 2 Turns(QC): 4 Walk 150 ft (QC): 4 Gait Assistive Device: Walker 4 Wheeled decreased john and shuffle gait sequence Exercises Seated Therapy Exercises: Ankle pumps, Long arc quads Seated Reps: 12 Assessment Patient tolerates minimal activity and request return to bed. Patient continues to display extreme fatigue and requires time to complete simple tasks. PT Correction Goals Physician Specialist Goals PT Correction Goals Time Frame: Oct 20, 2019 Roll Left & Right (QC): 6 Sit to Lying (QC): 6 Lying-Sitting on Side/Bed(QC): 6 Sit to Stand (QC): 6 Chair/Dot-la-Rmbgs Xfer(QC): 6 Toilet Transfer (QC): 6 Does the Patient Walk: Yes Walk 10 feet (QC): 6 Walk 50ft with 2 Turns (QC): 6 Walk 150 ft (QC): 6 Walking 10ft on Uneven Surface: 6 1 Step (curb) (QC): 6 PT Plan Treatment/Plan Treatment Plan: Continue Plan of Care Treatment Plan: Bed Mobility, Education, Functional Activity Jasper, Functional Strength, Gait, Safety, Therapeutic Exercise, Transfers Treatment Duration: Oct 20, 2019 Frequency: 6 times per week Estimated Hrs Per Day: .25 hour per day Patient and/or Family Agrees t: Yes Time/GCodes Time In: 1000 Time Out: 1014 Total Billed Treatment Time: 14 Total Billed Treatment 1 visit GT 14 min NIKHIL TORRES PT Oct 03, 2019 10:41
--- NOTE | 2019-10-03 11:27 | Occupational Ther Daily Note ---
OT Current Status-Daily Note Subjective Pt resting in bed with RN present. Agrees to therapy with encouragement. Pt has no c/o pain. ADL-Treatment Pt supine to sit with SBA. Sit to stand with supervision. Gait to restroom with FWW. Toilet transfer completed with CGA and cues for safety. [place] Depends with min assist to candy puller feet. Pt able to complete toileting hygiene, but requires assist to don clean Depends. Pt was prepping for shower, but staff ar rived for stress test. Pt washed hands at sink with supervision and transferred to w/c with SBA. Pt in w/c with staff present after session. Therapy Code Descriptions/Definitions Functional [place] Measure: 0=Not Assessed/NA 4=Minimal Assistance 1=Total Assistance 5=Supervision or Setup 2=Maximal Assistance 6=Modified [place] 3=Moderate Assistance 7=Complete IndependenceSCALE: Activities may be completed with or without assistive devices. 0-Qeaordwolq-imrqgye completes the activity by him/herself with no assistance from a helper. 5-Set-up or Clean-up Assistance-helper sets up or cleans up; patient completes activity. [place] assists only prior to or following the activity. 4-Supervision or Touching Assistance-helper provides verbal cues and/or touching/steadying and/or contact guard assistance as patient completes activity. Assistance may be provided throughout the activity or intermittently. 3-Partial/Moderate Assistance-helper does LESS THAN HALF the effort. [place] lifts, holds or supports trunk or limbs, but provides less than half the effort. 2-Substantial/Maximal Assistance-helper does MORE THAN HALF the effort. [place] lifts or holds trunk or limbs and provides more than half the effort. 0-Scazkyiux-vzjtoj does ALL the effort. Patient does none of the effort to complete the activity. Or, the assistance of 2 or more helpers is required for the patient to complete the activity. If activity was not attempted, code reason: 7-Patient Refused. 9-Not Applicable-not attempted and the patient did not perform the activity before the current illness, exacerbation or injury. 10-Not Attempted due to Environmental Limitations-(lack of equipment, weather restraints, etc.). 88-Not Attempted due to Medical Conditions or Safety Concerns. OT Senior Care Goals [place] Worker Goals Time Frame: Oct 09, 2019 Eating (QC): 6 Oral Hygiene (QC): 6 Toileting Hygiene (QC): 6 Shower/Bathe Self (QC): 4 Upper Body Dressing (QC): 6 Lower Body Dressing (QC): 6 On/Off Footwear (QC): 6 Additional Goals: 1-Demonstrate ADL Tasks, 2-Verbalize Understanding, 3- ImproveStrength/Jasper 1=Demonstrate adherence to instructed precautions during ADL tasks. 2=Patient will verbalize/demonstrate understanding of assistive d evices/modifications for ADL. 3=Patient will improve strength/tolerance for activity to enable patient to perform ADL's. OT Education/Plan Discharge Recommendations Plan/Recommendations: Continue POC Treatment Plan/Plan of Care Patient would benefit from OT for education, treatment and training to promote independence in ADL's, mobility, safety and/or upper extremity function for ADL's. Plan of Care: ADL Retraining, Functional Mobility, UE Funct Exercise/Act Treatment Duration: Oct 09, 2019 Frequency: 5 times per week Estimated Hrs Per Day: .25 hour per day Agreement: Yes Rehab Potential: Fair Time/GCodes Start Time: 10:20 Stop Time: 10:34 Total Time Billed (hr/min): 14 Billed Treatment Time 1 visit, ADL(14minutes) HEATHER ZARAGOZA OT Oct 03, 2019 11:27
--- NOTE | 2019-10-03 11:27 | Progress Note - Hospitalist ---
Subjective HPI/CC On Admission Date Seen by Provider: Oct 03, 2019 Time Seen by Provider: 11:26 Pt is a 83yoCF with a PMH of HTN and glaucoma who presented to the ER due to weakness and nausea x 10 days. She states that she has not felt well for 10-11 days. She was seen at [facility] [place] [facility] and was diagnosed with a UTI and was discharged home. She continued to not feel well and went back to the ER. She was again discharged home and was told her BP was high and to follow up with her PCP and rehabilitation physician. She saw Dr Valerio and was started on Norvasc. She then saw Dr Alicea and her norvasc was increased. At some point in there she had a CT of her abdomen and was told it showed "diverticulitis, hiatal hernia, and ulcer" per the ER note. We do not have records of this yet. This morning she states she feels no better. She is still nauseated and dry heaving but not able to get anything up. She reports profound weakness and HARRISON. She was to have an echo done today by Dr Valerio and possibly a stress test. She is also requesting lactulose as she has not had a BM for 3-4 days. Subjective/Events-last exam Pt reports feeling better today. Plan is for stress test today at 11. Focused Exam Lactate Level 10/01/19 13:50: Lactic Acid Level 2.62*H 10/01/19 16:25: Lactic Acid Level 1.20 Objective Exam Vital Signs Vital Signs Date Time Temp Pulse Resp B/P (MAP) Pulse Ox O2 Delivery O2 Flow Rate FiO2 10/03/19 08:00 Room Air 10/03/19 07:47 36.8 72 20 136/72 (93) 95 Capillary Refill : Less Than 3 Seconds General Appearance: No Apparent Distress, Anxious Respiratory: Lungs Clear, No Accessory Muscle Use, No Respiratory Distress Cardiovascular: Regular Rate, Rhythm, No Murmur Neurologic/Psychiatric: Alert, Oriented x3 Results/Procedures Lab Laboratory Tests 10/03/19 05:38 Patient resulted labs reviewed. Imaging: Reviewed Imaging Report Assessment/Plan Assessment and Plan Assess & Plan/Chief Complaint Intractable nausea Generalized Weakness Scopolamine patch Zofran prn Continue PPI PT/OT Reviewed records from [facility] [place], appears to have been treated with appropriate antibiotic and UA now clear of bacteria Would benefit from IRU and is agreeable to going there Elevated troponin HTN Cardiology consulted, appreciate recs troponin has trended up over night Stress today Hypokalemia Resolved Constipation Continue home lactulose Clinical Quality Measures DVT/VTE Risk/Contraindication: Risk Factor Score Per Nursin RFS Level Per Nursing on Admit: 4+=Very High CAROLINE BELLO MD Oct 03, 2019 11:27
--- NOTE | 2019-10-03 12:10 | NUR ---
RETURNED FROM STRESS TEST PER W/C.
--- NOTE | 2019-10-03 13:40 | NUR ---
CM/SS follow up. Plan: Patient will likely discharge to inpatient rehab unit tomorrow 10/03. The patient reports that she is feeling worn out after her chemical stress test and needs nourishment. CM/SS spoke with primary care nurse regarding lunch, the nurse reports she just ordered lunch for patient. CM/SS informed the patient that it will likely be tomorrow before she is discharged to the inpatient unit. The patient verbalized understanding. The patient did not have any further needs at this time.
--- NOTE | 2019-10-03 14:13 | Cardiology Progress Note ---
Cardiology SOAP Progress Note Subjective: No cardiac complaints. Objective: I&O/Vital Signs 10/03/19 10/03/19 10/03/19 10/03/19 04:12 06:45 07:47 08:00 Temp 36.4 36.8 Pulse 62 64 72 Resp 20 20 B/P (MAP) 142/73 (96) 136/72 (93) Pulse Ox 96 95 O2 Delivery Room Air Room Air Room Air 10/03/19 10/03/19 11:36 12:30 Temp 36.6 Pulse 77 79 Resp 16 18 B/P (MAP) 153/84 (107) 148/72 (97) Pulse Ox 97 95 O2 Delivery Room Air Room Air 10/03/19 00:00 Intake Total 960 ml Balance 960 ml Weight (Pounds): 188 Weight (Ounces): 1.6 Weight (Calculated Kilograms): [id number] Constitutional: appears stated age, AAO x 3; No apparent distress; well- developed, well-nourished Respiratory: chest is bilaterally symmetric, lungs clear to auscultation Cardiovascular: regular rate-rhythm, S1 and S2 Gastrointestional: soft, audible bowel sounds; No spleenomegaly Extremities: normal range of motion, non-tender, normal inspection; No clubbing, No cyanosis, No significant edema Neurologic/Psychiatric: no motor/sensory deficits, alert, normal mood/affect, oriented x 3, power is 5/5 both on sides Skin: normal color; No rash, No ulcerations Results/Procedures: Labs Laboratory Tests 10/03/19 05:38: Sodium Level 135, Potassium Level 4.6, Chloride Level 108H, Carbon Dioxide Level 20L, Anion Gap 7, Blood Urea Nitrogen 6L, Creatinine 0.72, Estimat Glomerular Fi ltration Rate > 60, BUN/Creatinine Ratio 8, Glucose Level 106H, Calcium Level 7.9L Microbiology 10/01/19 Blood Culture - Preliminary, Resulted No growth A/P: Assessment/Dx: Nausea, diverticulitis, Shortness of breath, Acute on chronic diastolic congestive heart failure, Borderline positive troponin, Hypertensive heart disease Plan: Nausea, diverticulitis, defer to the primary team. Shortness of breath, echocardiogram shows moderate LVH with moderate diastolic dysfunction. Normal LV function. Moderate tricuspid regurgitation. Acute on chronic mild diastolic congestive heart failure, I will hold off on giving Lasix for now. Shortness of breath is likely multifactorial. Borderline positive troponin, nuclear stress test done 10/03/2019 which showed no evidence of ischemia or infarction. Likely secondary to severe hypertension. Hypertensive heart disease, aggressive blood pressure control. Thank you for your consultation. Please call me if you have any questions. Kalpana Zamudio MD, FACP, FACC, FSCAI, FHRS, CCDS Interventional Cardiology Cardiac Electrophysiology Vascular Medicine and Endovascular Interventions Focused Exam Lactate Level 10/01/19 13:50: Lactic Acid Level 2.62*H 10/01/19 16:25: Lactic Acid Level 1.20 Bethanie ZAMUDIO MD Oct 03, 2019 14:13
--- NOTE | 2019-10-03 14:15 | Cardiology Stress Test Report ---
Stress Test Report Type of NM Stress Test: Test Type: LEXISCAN 0.4MG/5ML Date of Procedure/Referring: Date of Procedure: Oct 03, 2019 PCP Tera Alicea DO Admitting Physician Tera Alicea DO Indications: Chest pain, borderline positive troponin. Baseline Heart Rate: 87 Baseline Blood Pressure: Blood Pressure Systolic: 148 Blood Pressure Diastolic: 72 Baseline EKG: Baseline EKG: sinus rhythm Summary & Conclusion: Summary: The patient was brought to the stress lab after informed consent was taken. Stress test was performed according to the Lexiscan protocol. 0.4 mg of IV Lexiscan was given. Low-grade exercise was performed. Baseline EKG showed sinus rhythm at 87 bpm and blood pressure 114/96 mmHg. Maximum heart rate of 102 bpm and blood pressure 138/88 mmHg. Patient did not have any chest pain, arrhythmias or ST segment changes during the stress test. 10.40 mCi of Myoview were given for rest imaging and 33 mCi of Myoview given for stress imaging. Transient ischemic dilatation score 0.96, EF 71 percent. Normal wall motion. Normal myocardial perfusion imaging during rest and stress. Conclusion: Pharmacological stress test was negative for ischemia. Normal LV function with no wall motion abnormalities. Normal myocardial perfusion imaging during rest and stress. Bethanie LILLY MD Oct 03, 2019 14:15
--- NOTE | 2019-10-03 14:20 | NUR ---
Pastoral care visit.
[2019-10-03] MEDS: ASPIRIN E.C. 81 MG (ECOTRIN) TAB PO SCH (15:39)
[2019-10-03] MEDS: amLODIPine 5 MG (NORVASC) TAB PO SCH (15:39)
[2019-10-03] MEDS: lisINopril 40 MG (PRINIVIL) TABLET PO SCH (15:39)
[2019-10-03] MEDS: ALPRAZolam 0.25 MG (XANAX) TAB PO PRN (20:54)
[2019-10-04 00:35] VITALS: BP 137/63
[2019-10-04 05:00] VITALS: BP 147/65
[2019-10-04 06:01] LABS: CHLORIDE 103 MMOL/L (98-107); SODIUM 134 MMOL/L (135-145)
[2019-10-04 06:02] LABS: CALCIUM 8.3 MG/DL (8.5-10.1)
[2019-10-04 06:03] LABS: GLUCOSE 108 MG/DL (70-105)
[2019-10-04 06:04] LABS: CARBON DIOXIDE 23 MMOL/L (21-32)
[2019-10-04 06:07] LABS: CREATININE SERUM 0.74 MG/DL (0.60-1.30); GFR ESTIMATED > 60
[2019-10-04 06:08] LABS: BUN/CREATININE RATIO 8
[2019-10-04] MEDS: KCL 20 MEQ TAB (K-DUR) PO SCH (06:28)
[2019-10-04] MEDS: POTASSIUM CL 10MEQ/50ML IVPB 50 ML IV SCH (06:28)
[2019-10-04] MEDS: lisINopril 40 MG (PRINIVIL) TABLET PO SCH (08:50)
[2019-10-04] MEDS: amLODIPine 5 MG (NORVASC) TAB PO SCH (08:50)
[2019-10-04] MEDS: PANTOPRAZOLE 40 MG (PROTONIX) VIAL IV SCH (08:50)
[2019-10-04] MEDS: TIMOLOL MALEATE 0.5% 5 ML (TIMOPTIC) BTL OS SCH (08:51)
[2019-10-04] MEDS: ASPIRIN E.C. 81 MG (ECOTRIN) TAB PO SCH (08:51)
[2019-10-04] MEDS: BRIMONIDINE 0.2% (ALPHAGAN) OPHTH SOLN 5 ML BTL OS SCH (08:51)
[2019-10-04 09:00] VITALS: BP 139/63
--- NOTE | 2019-10-04 09:08 | Discharge Summary ---
Diagnosis/Chief Complaint Date of Admission Oct 01, 2019 at 18:06 Date of Discharge Discharge Date: Oct 04, 2019 Admission Diagnosis Intractable nausea Generalized Weakness Primary Care Jenae Alicea DO Discharge Summary Procedures/Consulations Dr Zamudio- Cardiology Discharge Physical Exam Allergies: Coded Allergies: Penicillins (Verified Allergy, Unknown, 10/01/19) Vitals & I&Os Vital Signs Date Time Temp Pulse Resp B/P (MAP) Pulse Ox O2 Delivery O2 Flow Rate FiO2 10/04/19 10:00 36.4 79 24 139/63 96 Room Air General Appearance: No Apparent Distress, WD/WN Cardiovascular: Regular Rate, Rhythm, No Murmur Neurologic/Psychiatric: Alert, Oriented x3 Hospital Course Pt is an 83yoCF who was admitted due to weakness and nausea and vomiting. She was found to have an elevated troponin and underwent stress testing which was negative. She worked with PT/OT and was deemed to be an appropriate candidate for inpatient rehab. She was discharged there in stable and improved condition. She is to follow up with Dr Alicea to follow up this hospital stay when she is discharged from the hospital. Labs (last 24 hrs) Microbiology 10/01/19 Blood Culture - Preliminary, Resulted No growth Patient resulted labs reviewed. Pending Labs Imaging: Reviewed Imaging Report Discussion & Recommendations Discharge Planning: >30 minutes discharge planning Discharge Home Medications: Active Scripts Active Reported Benazepril HCl 40 Mg Tab 40 Mg PO DAILY Colace (Docusate Sodium) 100 Mg Capsule 100 Mg PO DAILY PRN Aspirin EC (Aspirin) 81 Mg Tablet. 81 Mg PO DAILY Combigan Eye Drops (Brimonidine Tartrate/Timolol) 5 Ml Drops 1 Drop OS BID Enulose (Lactulose) 10 Gm/15 Ml Solution 15 Ml PO DAILY PRN Ondansetron HCl 4 Mg Tablet 0.4 Mg PO TID PRN Clonidine HCl 0.1 Mg Tablet 0.1 Mg PO DAILY PRN Amlodipine Besylate 5 Mg Tablet 10 Mg PO DAILY TAKES 2 (5MG) TABS Clotrimazole 15 Gm Cream..g. 1 Applic TOP DAILY PRN Cyanocobalamin Injection (Cyanocobalamin) 1,000 Mcg/Ml Inj 1,000 Mcg INJ MONTHLY Pantoprazole Sodium 40 Mg Tablet.dr 40 Mg PO 1900 Metoprolol Succinate 25 Mg Tab.er.24h 25 Mg PO 1900 Instructions to patient/family Please see electronic discharge instructions given to patient. Clinical Quality Measures DVT/VTE Risk/Contraindication: Risk Factor Score Per Nursin RFS Level Per Nursing on Admit: 4+=Very High Copy Copies To 1: JENAE ALICEA KATELYN M MD Oct 04, 2019 09:08
[2019-10-04 10:00] VITALS: BP 139/63
--- NOTE | 2019-10-04 10:06 | NUR ---
Report called to [facility] and given to ARUN Jonas.
[2019-10-04] MEDS ORDERED: NITR0.4T39 SL (11:20)
[2019-10-04] MEDS ORDERED: LISI40TA PO (11:20)
--- NOTE | 2019-10-04 18:58 | Cardiology Progress Note ---
Cardiology SOAP Progress Note Subjective: No cardiac complaints. Objective: I&O/Vital Signs 10/04/19 10/04/19 10/04/19 08:00 09:00 10:00 Temp 36.4 36.4 Pulse 79 79 Resp 24 24 B/P (MAP) 139/63 (88) 139/63 Pulse Ox 96 96 96 O2 Delivery Room Air Room Air Room Air 10/04/19 00:00 Intake Total 1450 ml Balance 1450 ml Weight (Pounds): 188 Weight (Ounces): 1.6 Weight (Calculated Kilograms): 85.219006 Constitutional: appears stated age, AAO x 3; No apparent distress; well- developed, well-nourished Respiratory: chest is bilaterally symmetric, lungs clear to auscultation Cardiovascular: regular rate-rhythm, S1 and S2 Gastrointestional: soft, audible bowel sounds; No spleenomegaly Extremities: normal range of motion, non-tender, normal inspection; No cl ubbing, No cyanosis, No significant edema Neurologic/Psychiatric: no motor/sensory deficits, alert, normal mood/affect, oriented x 3, power is 5/5 both on sides Skin: normal color; No rash, No ulcerations Results/Procedures: Labs Laboratory Tests 10/04/19 05:08: Sodium Level 134L, Potassium Level 4.0, Chloride Level 103, Carbon Dioxide Level 23, Anion Gap 8, Blood Urea Nitrogen 6L, Creatinine 0.74, Estimat Glomerular Filtration Rate > 60, BUN/Creatinine Ratio 8, Glucose Level 108H, Calcium Level 8.3L 10/04/19 06:01: Glucometer 99 Microbiology 10/01/19 Blood Culture - Preliminary, Resulted No growth A/P: Assessment/Dx: Nausea, diverticulitis, Shortness of breath, Acute on chronic diastolic congestive heart failure, Borderline positive troponin, Hypertensive heart disease Plan: Nausea, diverticulitis, defer to the primary team. Shortness of breath, echocardiogram shows moderate LVH with moderate diastolic dysfunction. Normal LV function. Moderate tricuspid regurgitation. Acute on chronic mild diastolic congestive heart failure, I will hold off on giving Lasix for now. Shortness of breath is likely multifactorial. Borderline positive troponin, nuclear stress test done 10/03/2019 which showed no evidence of ischemia or infarction. Likely secondary to severe hypertension. Hypertensive heart disease, aggressive blood pressure control. Thank you for your consultation. Please call me if you have any questions. Kalpana Zamudio MD, FACP, FACC, FSCAI, FHRS, CCDS Interventional Cardiology Cardiac Electrophysiology Vascular Medicine and Endovascular Interventions Bethanie ZAMUDIO MD Oct 04, 2019 18:58
[2019-10-04] MEDS ORDERED: SCOPOLAMINE 1.5 MG (TRANSDERM-SCOP) PATCH TOP SCH (21:30)
[2019-10-05] MEDS ORDERED: BENA40TA5 PO (10:53)
[2019-10-05] MEDS ORDERED: PRED5DRO ×2 (18:57→19:29)
== END 2019-10-04 10:00 ==
LOC: EDUNIT# 12:51 → ER 12:52 → 4TH 18:06
PROVIDERS: ADMIT Internal Medicine; ATTEND Internal Medicine
DX: R53.1 Weakness (principal); R11.0 Nausea; I11.9 Hypertensive heart disease without heart failure; E87.6 Hypokalemia; H40.9 Unspecified glaucoma; N39.0 Urinary tract infection, site not specified; K44.9 Diaphragmatic hernia without obstruction or gangrene; K57.92 Diverticulitis of intestine, part unspecified, without perforation or abscess without bleeding; K25.9 Gastric ulcer, unspecified as acute or chronic, without hemorrhage or perforation; E78.00 Pure hypercholesterolemia, unspecified; K21.9 Gastro-esophageal reflux disease without esophagitis; K59.09 Other constipation; M19.90 Unspecified osteoarthritis, unspecified site; E21.5 Disorder of parathyroid gland, unspecified; M84.48XA Pathological fracture, other site, initial encounter for fracture; I36.1 Nonrheumatic tricuspid (valve) insufficiency; Z79.82 Long term (current) use of aspirin; Z79.899 Other long term (current) drug therapy; Z88.0 Allergy status to penicillin; Z90.710 Acquired absence of both cervix and uterus
CPT/HCPCS: 70450; 71045; 71275; 74177; 78452; 80048 ×2; 80053 ×2; 81000; 82150; 82550; 82553; 82962; 83605; 83690; 83735; 83874; 83880; 84443; 84484 ×2; 85025 ×2; 85610; 85730; 87040; 93005 ×2; 93017; 93041; 93306; 97116; 97162; 97165; 97535; 99284; A9502; G0378; 36415; 96374; 96375

== ENCOUNTER 2019-10-04 09:40 | Inpatient (IN) | payer MEDICARE ==
[~2019-10-04] VITALS: Ht 157.5 cm; Wt 86.9 kg
[~2019-10-04 09:40] MED LIST changes: +AMLO5TAB9 PO; +ASPI-983 PO; +BRIM5DRO OS; +CLON0.1T PO; +CLOT15CR28 TOP; +DOCU-143 PO; +LACT10SO63 PO; +ONDA-105 PO; +PRED5DRO OD
[2019-10-04] MEDS ORDERED: diphenhydrAMINE 25 MG TAB (BENADRYL) PO PRN (10:00)
[2019-10-04] MEDS ORDERED: LOPERAMIDE 2 MG (IMODIUM) TABLET PO PRN (10:00)
[2019-10-04] MEDS ORDERED: FLEET ENEMA ADULT 1 EA BTL PR PRN (10:00)
[2019-10-04] MEDS ORDERED: MELATONIN 3 MG TABLET PO PRN (10:00)
[2019-10-04] MEDS ORDERED: guaiFENesin/CODEINE (ROBITUSSIN AC) 10ML UDC PO PRN (10:00)
[2019-10-04] MEDS ORDERED: DOCUSATE SODIUM 100 MG (COLACE) CAP PO PRN ×2 (10:00→17:00)
[2019-10-04] MEDS ORDERED: CALCIUM CARBONATE 500 MG (TUMS) TAB.CHEW PO PRN (10:00)
[2019-10-04] MEDS ORDERED: BISACODYL 10 MG SUPP (DULCOLAX) PR PRN (10:00)
--- NOTE | 2019-10-04 10:05 | NUR ---
Lola Bagley admitted to room 231-1, with an admitting diagnosis of generalized weakness, on 10/04/19 from [facility] 4th floor medical via wheelchair, accompanied by staff. LOLA BAGLEY introduced to surroundings, call light, bed controls, phone, TV, temperature control, lights, meal times, smoking policy, visitor policy, side rail policy, bathrooms and showers. Patient Rights given to patient in the handbook. LOLA BAGLEY verbalizes understanding that [facility] is not responsible for the loss or damage to any personal effects or valuables that are kept in the patients posession during their hospitalization. LOLA BAGLEY verbalizes understanding of Interdisciplinary Patient Education. Patient and/or family were informed about the Rapid Response Team and its purpose. Patient received Patient Rights Booklet, which includes Privacy Act Statement and Data Collection Information Summary.
[2019-10-04] MEDS ORDERED: NITR0.4T39 SL (11:20)
[2019-10-04] MEDS ORDERED: LISI40TA PO (11:20)
--- NOTE | 2019-10-04 11:22 | NUR ---
SPOKE WITH THE PT ON 10-02-2019 AND THE MED REC WAS COMPLETED AT THAT TIME. THE FOLLOWING MEDICATIONS WERE ADDED WHILE ON 4TH FLOOR: LISINOPRIL 40MG NITROGLYCERIN 0.4MG CLONIDINE 0.1MG WAS CHANGED FROM 1 TAB DAILY PRN TO 1 TAB EVERY 6 HOURS PRN BENAZEPRIL 40MG WAS NOT CONTINUED ON 4TH FLOOR THEREFORE I REMOVED IT FROM THE MED REC. AFTER THE MEDS ARE CONTINUED I WILL REVERT THE MED REC BACK TO WHAT THEY WERE TAKING PRIOR TO 4TH FLOOR Addendum: 10/05/19 at 1055 by PATRICIO GARLAND [facility] I HAVE REVERTED THE MED REC BACK TO WHAT THE PT WAS TAKING BEFORE ADMISSION LISINOPRIL 40MG AND NITROGLYCERIN HAVE BEEN REMOVED BENAZEPRIL 40MG WAS ADDED BACK TO THE MED REC CLONIDINE 0.1MG WAS CHANGED FROM 1 Q 6 H PRN BACK TO 1 TAB DAILY PRN
--- NOTE | 2019-10-04 11:24 | Occupational Therapy Eval ---
OT Evaluation-General/PLF Medical Diagnosis Admission Date Oct 04, 2019 at 10:05 Medical Diagnosis: generalized weakness Onset Date: Oct 25, 2019 Therapy Diagnosis Therapy Diagnosis: decreased self care skills Height/Weight Height (Feet): 5 Height (Inches): 2.00 Weight (Pounds): 188 Weight (Ounces): 1.6 Referral Physician: Cj Medical History Pertinent Medical History: HTN Additional Medical History glaucoma, irregular heartbeat, arthritis, fx, mod hiatal hernia, mild diverticulosis, L5 comp fracture, Reviewed History: Yes Social History Home: Single Level Current Living Status: Alone Entry Into Home: Ramp ADL-Prior Level of Function SCALE: Activities may be completed with or without assistive devices. 8-Bbwnsmtxpm-dafphxp completes the activity by him/herself with no assistance from a helper. 5-Set-up or Clean-up Assistance-helper sets up or cleans up; patient completes activity. [place] assists only prior to or following the activity. 4-Supervision or Touching Assistance-helper provides verbal cues and/or touching/steadying and/or contact guard assistance as patient completes activity. Assistance may be provided throughout the activity or intermittently. 3-Partial/Moderate Assistance-helper does LESS THAN HALF the effort. [place] lifts, holds or supports trunk or limbs, but provides less than half the effort. 2-Substantial/Maximal Assistance-helper does MORE THAN HALF the effort. [place] lifts or holds trunk or limbs and provides more than half the effort. 7-Lcbqychjt-dlgmbd does ALL the effort. Patient does none of the effort to complete the activity. Or, the assistance of 2 or more helpers is required for the patient to complete the activity. If activity was not attempted, code reason: 7-Patient Refused. 9-Not Applicable-not attempted and the patient did not perform the activity before the current illness, exacerbation or injury. 10-Not Attempted due to Environmental Limitations-(lack of equipment, weather restraints, etc.). 88-Not Attempted due to Medical Conditions or Safety Concerns. ADL PLOF Comments Pt reports being independent with basic self care and mobility. Children provide meals daily and assist with housework. Pt does not drive Self Care: Needed Some Help DME/Equipment: Bath Bench, Tub/Shower Drive Self: No OT Current Status Subjective Pt agreeable to therapy. No c/o pain, states she is just weak. Transferred to PAU via w/c. Mental Status/Objective Patient Orientation: Situation Current Glasses/Contacts: Yes (reading glasses. Pt reports decreased vision secondary to glaucoma) Hearing Aids: No Dentures/Partials: No Hand Dominance: Left Upper Extremity ROM Mildly decreased shoulder ROM. Upper Extremity Coordination Intact Upper Extremity Strength generalized weakness ADL-Treatment Eating (QC): 6 (Pt reports feeding self and managing containers without assist) Oral Hygiene (QC): 7 (Pt requests to complete this afternoon ) Shower/Bathe Self (QC): 3 (Pt required assist to wash buttocks and bilateral lower legs/feet. Bathing completed while seated on shower chair.) Upper Body Dressing (QC): 4 (Pt donned pullover dress with SBA while seated.) Lower Body Dressing (QC): 3 (Pt required assist to thread bilateral LE into Depends. Stood with minimal assistance. Min assist to pull up in back.) On/Off Footwear (QC): 2 (Pt requires max assist to doff/don socks. Pt states she normally does not wear socks unless she is leaving the house. ) Toileting Hygiene (QC): 3 (Pt able to complete toileting hygiene and pull Depends down, but requires min assist to pull Depends up.) OT Short Term Goals Short Term Goals Time Frame: Oct 11, 2019 Toileting hygiene: 4 Lower body dressin OT Offline Cutter Goals Offline Cutter Goals Time Frame: Oct 25, 2019 Eating (QC): 6 Oral Hygiene (QC): 6 Toileting Hygiene (QC): 6 Shower/Bathe Self (QC): 5 Upper Body Dressing (QC): 6 Lower Body Dressing (QC): 6 On/Off Footwear (QC): 5 Additional Goals: 1-Demonstrate ADL Tasks, 2-Verbalize Understanding, 3- ImproveStrength/Jasper 1=Demonstrate adherence to instructed precautions during ADL tasks. 2=Patient will verbalize/demonstrate understanding of assistive devices/modifications for ADL. 3=Patient will improve strength/tolerance for activity to enable patient to perform ADL's. OT Education/Plan Problem List/Assessment Assessment: Decreased Activ Tolerance, Decreased UE Strength, Dependent Transfers, Impaired I ADL's, Impaired Self-Care Skills Pt demonstrates decreased activity tolerance, mobility, strength, and ADL functioning. Pt to benefit from skilled OT intervention for ADL training, transfers, strengthening, and home safety education to increase level of independence and allow safe discharge plan. Discharge Recommendations Plan/Recommendations: Continue POC Treatment Plan/Plan of Care Patient would benefit from OT for education, treatment and training to promote independence in ADL's, mobility, safety and/or upper extremity function for ADL's. Plan of Care: ADL Retraining, Functional Mobility, Group Exercise/Act as Ind, UE Funct Exercise/Act Treatment Duration: Oct 25, 2019 Frequency: At least 5 of 7 days/Wk (IRF) Estimated Hrs Per Day: 1.5 hours per day Agreement: Yes Time/GCodes Start Time: 10:05 Stop Time: 11:05 Total Time Billed (hr/min): 60 Billed Treatment Time 1 visit, EVM(15minutes), ADLx3(45minutes) HEATHER ZARAGOZA OT Oct 04, 2019 11:24
--- NOTE | 2019-10-04 11:51 | Physical Therapy Evaluation ---
PT Evaluation-General Medical Diagnosis Admission Date Oct 04, 2019 at 10:05 Medical Diagnosis: generalized weakness Onset Date: Oct 25, 2019 Therapy Diagnosis Therapy Diagnosis: impaired mobility, strength, endurance Height/Weight Height (Feet): 5 Height (Inches): 2.00 Weight (Pounds): 188 Weight (Ounces): 1.6 Referral Physician: Sapphire Coorna DO Reason for Referral: Evaluation/Treatment Medical History Pertinent Medical History: HTN Additional Medical History parathyroid disease Reviewed History: Yes Social History Home: Single Level Current Living Status: Alone Entry Into Home: Ramp Prior Prior Level of Function SCALE: Activities may be completed with or without assistive devices. 4-Oftyquqzvj-rfspfsv completes the activity by him/herself with no assistance from a helper. 5-Set-up or Clean-up Assistance-helper sets up or cleans up; patient completes activity. [place] assists only prior to or following the activity. 4-Supervision or Touching Assistance-helper provides verbal cues and/or touching/steadying and/or contact guard assistance as patient completes activity. Assistance may be provided throughout the activity or intermittently. 3-Partial/Moderate Assistance-helper does LESS THAN HALF the effort. [place] lifts, holds or supports trunk or limbs, but provides less than half the effort. 2-Substantial/Maximal Assistance-helper does MORE THAN HALF the effort. [place] lifts or holds trunk or limbs and provides more than half the effort. 3-Yokmeyktx-vzfuhb does ALL the effort. Patient does none of the effort to complete the activity. Or, the assistance of 2 or more helpers is required for the patient to complete the activity. If activity was not attempted, code reason: 7-Patient Refused. 9-Not Applicable-not attempted and the patient did not perform the activity before the current illness, exacerbation or injury. 10-Not Attempted due to Environmental Limitations-(lack of equipment, weather restraints, etc.). 88-Not Attempted due to Medical Conditions or Safety Concerns. Bed Mobility: 6 Transfers (B,C,W/C): 6 Gait: 6 Indoor Mobility (Ambulation): Independent Prior Devices Use: Walker PT Evaluation-Current Subjective Patient in recliner pre tx, agrees to PT, has no complaints of pain at rest. Pt/Family Goals to be independent at home Objective Patient Orientation: Person, Place ROM/Strength ROM Lower Extremities WNL Strength Lower Extremities RLE (hip flexion 3/5, knee flexion 4/5, knee extension 3+/5, dorsiflexion 3/5), LLE (hip flexion 3/5, knee flexion 4/5, knee extension 3+/5, dorsiflexion 3/5) Sensory Vision: Wears Glasses Hearing: Functional Hand Dominance: Left Sensation Right Lower Extremit: Intact Sensation Left Lower Extremity: Intact Transfers Roll Left to Right (QC): 6 Sit to Lying (QC): 3 Lying to Sitting/Side of Bed(Q: 3 Sit to Stand (QC): 4 Chair/Rqv-bx-Lhvcg Xfer(QC): 4 Toilet Transfer (QC): 4 Car Transfer (QC): 3 Patient performs bed mobility with independence, supine to sit with min assist, sit to supine with mod assist, sit to stand with CGA, transfers with CGA, car transfer with mod assist (needs assist with both legs getting in and out). Gait Does the Patient Walk?: Yes Mode of Locomotion: Walk Anticipated Mode of Locomotion: Walk Walk 10 feet (QC): 4 Walk 50 ft with 2 Turns(QC): 4 Walk 150 ft (QC): 4 Walking 10ft/uneven surface-QC: 3 Distance: 150', 70'x2 Gait Assistive Device: Walker 4 Wheeled Comments/Gait Description Patient can ambulate 150' with a 4-wheeled walker with CGA (including 50' with at least 2 turns of 90 degrees but needs min assist to ambulate over an uneven surface). Patient ambulates slowly but steady, has trouble stepping up onto the uneven surface that is a pad on the floor only about 1 inch tall. Wheelchair Training Does the Pt Use a Wheelchair?: No Wheel 50 ft with 2 turns (QC): 9 Wheel 150 ft (QC): 9 Stairs 1 Step (curb) (QC): 88 4 Steps (QC): 88 12 Steps (QC): 88 Patient cannot step up on a step, she has trouble just stepping up 1 inch to test an uneven surface. Balance Sitting Static: Normal Sitting Dynamic: Normal Standing Static: Good Standing Dynamic: Good Picking up an Object (QC): 88 (NT due to poor strength) Treatment BLE seated exercises x20 - AP, hip flexion, hip abd/add with RTB and pillow, LAQ alternating for 5 min Assessment/Needs Patient has impaired mobility, strength, endurance. She needs frequent rest breaks due to fatigue. Patient in recliner post tx with nurse call, phone, tray , all needs met. Rehab Potential: Fair PT Short Term Goals Short Term Goals Time Frame: Oct 11, 2019 Roll Left & Right: 6 Sit to lyin Lying to sitting on side of be: 4 Sit to stand: 4 Chair/wtq-ws-djxsm transfer: 4 Walk 10 feet: 4 Walk 50 feet with two turns: 4 Walk 150 feet: 4 PT Promotions Specialist Goals Promotions Specialist Goals PT Group Home Goals Time Frame: Oct 25, 2019 Roll Left & Right (QC): 6 Sit to Lying (QC): 6 Lying-Sitting on Side/Bed(QC): 6 Sit to Stand (QC): 6 Chair/Bkh-mp-Wmrtv Xfer(QC): 6 Toilet Transfer (QC): 6 Car Transfer (QC): 6 Does the Patient Walk: Yes Walk 10 feet (QC): 6 Walk 50ft with 2 Turns (QC): 6 Walk 150 ft (QC): 6 Walking 10ft on Uneven Surface: 6 1 Step (curb) (QC): 4 4 Steps (QC): 4 12 Steps (QC): 88 Picking up an Object (QC): 4 Does the Pt use WC or Scooter?: No Wheel 50 feet with 2 turns (QC: 9 Wheel 150 feet: 9 PT Plan Problem List Problem List: Activity Tolerance, Functional Strength, Safety, Balance, Gait, Transfer, Bed Mobility, ROM Treatment/Plan Treatment Plan: Continue Plan of Care Treatment Plan: Bed Mobility, Education, Functional Activity [place], Functional Strength, Group Therapy, Gait, Safety, Therapeutic Exercise, Transfers Treatment Duration: Oct 25, 2019 Frequency: At least 5 of 7 days/Wk (IRF) Estimated Hrs Per Day: 1.5 hours per day Patient and/or Family Agrees t: Yes Safety Risks/Education Patient Education: Gait Training, Transfer Techniques, Steps, Correct Positioning, Safety Issues Teaching Recipient: Patient Teaching Methods: Demonstration, Discussion Response to Teaching: Reinforcement Needed Discharge Recommendations Plan Patient will perform bed mobility and transfer training, balance and endurance training, functional strengthening, stair training, gait training, and education, to improve functional mobility and independence at home. Therapy Discharge Recommendati: Home & Family, Post Acute PT Time/GCodes Time In: 1105 Time Out: 1155 Total Billed Treatment Time: 50 Total Billed Treatment 1 visit EVM 20' EX 15' FA 15' JUVENCIO HAHN PT Oct 04, 2019 11:51
--- NOTE | 2019-10-04 11:52 | PM&R Post Admission Assessment ---
PM&R HP Date of Visit: Oct 04, 2019 Time of Visit: 10:30 History of Present Illness CC: Severe Debility HPI: This is an 83yoWF clinic pt of Dr. Alicea known to me 1.5 years ago after I admitted her for [facility] swing bed who presents due to severe generalized weakness, dizziness, and malignant HTN. She did undergo a stress test by cardiology which was within normal limits. She had some significant problems with abdominal pain. CT scan ordered by Dr. Alicea did not reveal anything but some diverticulitis but malignant HTN caused continued issues and pt became so weak she could not remain at home so she is presented to inpatient rehab for structured PT in order to regain function in order to go home and live independently. Her prior level of functioning uses a walker and cane and she had been doing well since the year and a half I had last seen her. Patient meets IRF criteria and does not have a qualifying 60% diagnosis. Patient will be admitted to IRF due to the current COVID-19 crisis. This patient is an appropriate ARU 40% patient, who during this COVID emergency, requires the admission to acute rehab. Past Elsorsr-Uqcxyv-Qfagpu Hx Past Med/Social Hx: Reviewed Nursing Past Med/Soc Hx, Reviewed and Corrections made Patient Social History Marrital Status: Employed/Student: retired Alcohol Use: Denies Use Smoking Status: Never a Smoker 2nd Hand Smoke Exposure: No Recent Hopitalizations: No Immunizations Up To Date Tetanus Booster (TDap): More than 5yrs Pediatric: Yes Date of Pneumonia Vaccine: Apr 30, 2018 Date of Influenza Vaccine: Dec 27, 2017 Seasonal Allergies Seasonal Allergies: No Past Medical History Surgeries: Adenoidectomy, Appendectomy, Eye Surgery, Gallbladder, Hysterectomy, Orthopedic, Parathyroidectomy, Tonsillectomy Cardiac: High Cholesterol, Hypertension, Irregular Heartbeat Reproductive: No Sexually Transmitted Disease: No HIV/AIDS: No Menopausal Gastrointestinal: Gastroesophageal Reflux, Chronic Constipation, Diverticulosis, Hiatal Hernia, Ulcer Musculoskeletal: Arthritis, Fractures Endocrine: Parathyroid Disease HEENT: Cataract, Glaucoma Loss of Vision: Denies Hearing Impairment: Denies History of Blood Disorders: No Adverse Reaction to Blood Tan: No Family History Completed stroke Hypertension Myocardial infarction PSH: -EGD'S--02/2018--ULCERS/GASTRIC EROSIONS; LAST ONE 04/2018--HEALED ULCERS -COLONOSCOPIES--LAST ONE 02/2018--DIVERTICULAR DISEASE Self Care: Needed Some Help Occupation: retired. Drive Self: No Eatin (Pt reports feeding self and managing containers without assist) Oral Hygiene: 7 (Pt requests to complete this afternoon ) Shower/Bathe Self: 3 (Pt required assist to wash buttocks and bilateral lower legs/feet. Bathing completed while seated on shower chair.) Upper Body Dressin (Pt donned pullover dress with SBA while seated.) Lower Body Dressin (Pt required assist to thread bilateral LE into Depends. Stood with minimal assistance. Min assist to pull up in back.) On/Off Footwear: 2 (Pt requires max assist to doff/don socks. Pt states she normally does not wear socks unless she is leaving the house. ) Toileting Hygiene: 3 (Pt able to complete toileting hygiene and pull Depends down, but requires min assist to pull Depends up.) PM&R Allergy/Meds/Data Review Allergies Coded Allergies: Penicillins (Verified Allergy, Unknown, 10/01/19) Home Medications Scheduled Amlodipine Besylate (Amlodipine Besylate), 10 MG PO DAILY, (Reported) Aspirin (Aspirin EC), 81 MG PO DAILY, (Reported) Brimonidine Tartrate/Timolol (Combigan Eye Drops), 1 DROP OS BID, (Reported) Cyanocobalamin (Cyanocobalamin Injection), 1,000 MCG INJ MONTHLY, (Reported) Lisinopril (Lisinopril), 40 MG PO DAILY, (Reported) Metoprolol Succinate (Metoprolol Succinate), 25 MG PO 1900, (Reported) Pantoprazole Sodium (Pantoprazole Sodium), 40 MG PO 1900, (Reported) Scheduled PRN Clonidine HCl (Clonidine HCl), 0.1 MG PO Q6H PRN for DBP OVER 160, (Reported) Clotrimazole (Clotrimazole), 1 APPLIC TOP DAILY PRN for RASH, (Reported) Docusate Sodium (Colace), 100 MG PO DAILY PRN for CONSTIPATION-1ST LINE, (Reported) Lactulose (Enulose), 15 ML PO DAILY PRN for CONSTIPATION-3RD LINE, (Reported) Nitroglycerin (Nitroglycerin), 0.4 MG SL UD PRN for CHEST PAIN, (Reported) Ondansetron HCl (Ondansetron HCl), 0.4 MG PO TID PRN for NAUSEA/VOMITING-1ST LI NE, (Reported) Discontinued Medications Benazepril HCl (Benazepril HCl), 40 MG PO DAILY, (Reported) Discontinued Reason: No Longer Taking Benzonatate (Tessalon Perles), 100 MG PO TID PRN for COUGH Discontinued Reason: No Longer Taking Ipratropium/Albuterol Sulfate (Iprat-Albut 0.5-3(2.5) mg/3 ml), 3 ML INH RTQ4HR Discontinued Reason: No Longer Taking Iron Sucrose Complex (Venofer), 200 MG IV Q48H@09 Discontinued Reason: No Longer Taking Latanoprost (Latanoprost), 1 DROP OU HS, (Reported) Discontinued Reason: No Longer Taking Methylprednisolone Sod Succ/Pf (Solu-Medrol 40 mg Vial), 40 MG IV Q12H Discontinued Reason: No Longer Taking Metoclopramide HCl (Metoclopramide HCl), 5 MG PO TID, (Reported) Discontinued Reason: No Longer Taking Ondansetron (Ondansetron Odt), 4 MG PO Q6H PRN for NAUSEA/VOMITING Discontinued Reason: Duplicate Order Prednisoln Sp/Moxiflox/Bromfen (Pred gF-Rrkj-Sltz 1-0.5-0.075%), 1 DROP OD BID, (Reported) Discontinued Reason: No Longer Taking Current Medications Current Medications Reviewed Review of Systems Constitutional: see HPI, dizziness, malaise, weakness EENTM: no symptoms reported Respiratory: short of breath Cardiovascular: no symptoms reported Gastrointestinal: abdominal pain, loss of appetite, nausea, vomiting Genitourinary: no symptoms reported Musculoskeletal: back pain, joint pain, muscle stiffness, muscle cramps Skin: no symptoms reported Psychiatric/Neurological: Anxiety All Other Systems Reviewed Negative Unless Noted: Yes Physical Exam Physical Exam Vital Signs Capillary Refill : Height, Weight, BMI Height: 5'2.00" Weight: 188lbs. 1.6oz. 85.919992hy; 33.10 BMI Method:Stated General Appearance: No Apparent Distress, WD/WN, Anxious, Chronically ill, Obese Eyes: Bilateral Eye Normal Inspection, Bilateral Eye PERRL HEENT: PERRL/EOMI, Normal ENT Inspection, Pharynx Normal Neck: Full Range of Motion, Normal Inspection, Non Tender, Supple, Carotid Bruit Respiratory: Chest Non Tender, Lungs Clear, Normal Breath Sounds, No Accessory Muscle Use, No Respiratory Distress Cardiovascular: Regular Rate, Rhythm, No Edema, No Gallop, No JVD, No Murmur, Normal Peripheral Pulses Gastrointestinal: Normal Bowel Sounds, No Organomegaly, No Pulsatile Mass, Non Tender, Soft Back: Normal Inspection, No CVA Tenderness, No Vertebral Tenderness Extremity: Normal Capillary Refill, Normal Inspection, Normal Range of Motion, Non Tender, No Calf Tenderness, No Pedal Edema Neurologic/Psychiatric: Alert, Oriented x3, No Motor/Sensory Deficits, Normal Mood/Affect, content curator II-XII Norm as Tested, Abnormal Gait, Motor Weakness (generalized weakness all extremities) Skin: Normal Color, Warm/Dry Lymphatic: No Adenopathy PM&R Medical Assessment & Plan REHAB/MEDICAL ASSESSMENT AND PLAN: REHAB IMPAIRMENT GROUP: Debility ETIOLOGIC DIAGNOSIS: Debility The comorbidities that impact the patients function and/or functional outcome by: advanced age, lives alone, poor stamina, fall risk, multiple co-morbidities REHAB PLAN: The patient is being admitted to our comprehensive inpatient rehabilitation facility and can tolerate the intensity of service consisting of at least: 180 minutes of therapy a day, 5 out of 7 days a week Rehab treatment will consist of: PT OT will focus on increasing stamina and independence of ADL's and focus on fall prevention in order to regain enough function and confidence to return home to live independently The patient/family has a good understanding of our discharge process and will b enefit from an interdisciplinary inpatient rehabilitation program. The patient has potential to make improvement and is in need of at least two of the following multidisciplinary therapies including but not limited to physical, occupational, speech, and prosthetics and orthotics. Additionally the patient will need services from respiratory, nutritional services, wound care, psycho logy, etc. (Customize this to each patient). Given the patients complex condition and risk of further medical complications, rehabilitation services cannot be safely or effectively provided at a lower level of care such as a detention facility. BARRIERS TO DISCHARGE: Lives alone ESTIMATED LOS: 7 days DISPOSITION: Home RELEVANT CHANGES SINCE PREADMISSION SCREENING: I have compared the patients medical and functional status at the time of the preadmission screening and there are: no changes PROGNOSIS: Fair REHABILITATION GOALS: 1. PT OT will focus on increasing stamina and independence of ADL's and focus on fall prevention in order to regain enough function and confidence to return home to live independently All the above goals were reviewed with the patient and he/she is in agreement. By signing this document, I acknowledge that I have personally performed a full physical examination on this patient within 24 hours of admission to this inpatient rehabilitation facility and have determined the patient to be able to tolerate the above course of treatment at an intensive level for a reasonable period of time. I will be completing a detailed individualized Plan of Care for this patient by day #4 of the patients stay based upon the Preadmission Screen, the Post-Admission Evaluation, and the therapy evaluations. Admission Dx/Comorbidities: (1) Debility ICD Codes: R53.81 - Other malaise (2) Weakness generalized Status: Acute ICD Codes: R53.1 - Weakness (3) Transient hypotension Status: Acute ICD Codes: I95.9 - Hypotension, unspecified (4) Near syncope Status: Acute ICD Codes: R55 - Syncope and collapse (5) Microcytic anemia Status: Acute ICD Codes: D50.9 - Iron deficiency anemia, unspecified (6) HTN (hypertension) Status: Acute ICD Codes: I10 - Essential (primary) hypertension (7) Dyspnea on exertion Status: Acute ICD Codes: R06.09 - Other forms of dyspnea Assessment/Plan Assessment and Plan Assess & Plan/Chief Complaint Assessment: Debility Severe weakness Near syncope HTN GERD Glaucoma Plan: IRF protocol Home meds Monitor BP DC MARKO Barr DO Oct 04, 2019 11:52
--- NOTE | 2019-10-04 13:44 | Occupational Ther Daily Note ---
OT Current Status-Daily Note Subjective Pt sitting in chair, agrees to therapy. ADL-Treatment Pt sitting in chair finishing lunch when therapist arrives. Sit to stand with min assist. Gait to restroom with 4WW. Pt stood at sink to completed oral care with SBA. Return to chair with SBA. Therapy Code Descriptions/Definitions Functional [place] Measure: 0=Not Assessed/NA 4=Minimal Assistance 1=Total Assistance 5=Supervision or Setup 2=Maximal Assistance 6=Modified [place] 3=Moderate Assistance 7=Complete IndependenceSCALE: Activities may be completed with or without assistive devices. 0-Cimyngesyn-llihjcw completes the activity by him/herself with no assistance from a helper. 5-Set-up or Clean-up Assistance-helper sets up or cleans up; patient completes activity. [place] assists only prior to or following the activity. 4-Supervision or Touching Assistance-helper provides verbal cues and/or touching/steadying and/or contact guard assistance as patient completes activity. Assistance may be provided throughout the activity or intermittently. 3-Partial/Moderate Assistance-helper does LESS THAN HALF the effort. [place] lifts, holds or supports trunk or limbs, but provides less than half the effort. 2-Substantial/Maximal Assistance-helper does MORE THAN HALF the effort. [place] lifts or holds trunk or limbs and provides more than half the effort. 9-Dtsvlmznd-wjckme does ALL the effort. Patient does none of the effort to complete the activity. Or, the assistance of 2 or more helpers is required for the patient to complete the activity. If activity was not attempted, code reason: 7-Patient Refused. 9-Not Applicable-not attempted and the patient did not perform the activity before the current illness, exacerbation or injury. 10-Not Attempted due to Environmental Limitations-(lack of equipment, weather restraints, etc.). 88-Not Attempted due to Medical Conditions or Safety Concerns. Oral Hygiene (QC): 4 Other Treatment Pt sit to stand with min assist. Gait to therapy gym with 4WW, slow pace. Arm bike x5 minutes to increase overall activity tolerance and strength needed for functional task completion. Pt performed task without resistance and with slow pace. Rest break following completion of activity. Pt returned to room, sitting in chair with needs met after session. OT Short Term Goals Short Term Goals Time Frame: Oct 11, 2019 Toileting hygiene: 4 Lower body dressin OT Flour Mixer Helper Goals Flour Mixer Helper Goals Time Frame: Oct 25, 2019 Eating (QC): 6 Oral Hygiene (QC): 6 Toileting Hygiene (QC): 6 Shower/Bathe Self (QC): 5 Upper Body Dressing (QC): 6 Lower Body Dressing (QC): 6 On/Off Footwear (QC): 5 Additional Goals: 1-Demonstrate ADL Tasks, 2-Verbalize Understanding, 3- ImproveStrength/Jasper 1=Demonstrate adherence to instructed precautions during ADL tasks. 2=Patient will verbalize/demonstrate understanding of assistive devices/modifications for ADL. 3=Patient will improve strength/tolerance for activity to enable patient to perform ADL's. OT Education/Plan Discharge Recommendations Plan/Recommendations: Continue POC Treatment Plan/Plan of Care Patient would benefit from OT for education, treatment and training to promote independence in ADL's, mobility, safety and/or upper extremity function for ADL's. Plan of Care: ADL Retraining, Functional Mobility, Group Exercise/Act as Ind, UE Funct Exercise/Act Treatment Duration: Oct 25, 2019 Frequency: At least 5 of 7 days/Wk (IRF) Estimated Hrs Per Day: 1.5 hours per day Agreement: Yes Rehab Potential: Fair Time/GCodes Start Time: 13:00 Stop Time: 13:30 Total Time Billed (hr/min): 30 Billed Treatment Time 1 visit, ADL(15minutes), EX(15minutes) HEATHER ZARAGOZA OT Oct 04, 2019 13:44
[2019-10-04 14:44] VITALS: BP 130/58
--- NOTE | 2019-10-04 15:05 | Physical Therapy Daily Note ---
PT Daily Note-Current Subjective Pt sitting in recliner upon arrival. Pt agrees to PT. Pain Location: No Pain Reported Mental Status Patient Orientation: Person, Place, Situation Transfers SCALE: Activities may be completed with or without assistive devices. 9-Ccznlnktpu-rhafjao completes the activity by him/herself with no assistance from a helper. 5-Set-up or Clean-up Assistance-helper sets up or cleans up; patient completes activity. Pauline assists only prior to or following the activity. 4-Supervision or Touching Assistance-helper provides verbal cues and/or touching/steadying and/or contact guard assistance as patient completes activity. Assistance may be provided throughout the activity or intermittently. 3-Partial/Moderate Assistance-helper does LESS THAN HALF the effort. Pauline lifts, holds or supports trunk or limbs, but provides less than half the effort. 2-Substantial/Maximal Assistance-helper does MORE THAN HALF the effort. Pauline lifts or holds trunk or limbs and provides more than half the effort. 9-Wsaiuuozq-cqugnz does ALL the effort. Patient does none of the effort to complete the activity. Or, the assistance of 2 or more helpers is required for the patient to complete the activity. If activity was not attempted, code reason: 7-Patient Refused. 9-Not Applicable-not attempted and the patient did not perform the activity before the current illness, exacerbation or injury. 10-Not Attempted due to Environmental Limitations-(lack of equipment, weather restraints, etc.). 88-Not Attempted due to Medical Conditions or Safety Concerns. Sit to Stand (QC): 4 Weight Bearing Full Weight Bearing Full Weight Bearing Gait Training Does the Patient Walk?: Yes Distance: 125' x2 Walk 10 feet (QC): 5 Walk 50 ft with 2 Turns(QC): 5 Walk 150 ft (QC): 5 Gait Persons Needed: 1 Gait Assistive Device: Walker 4 Wheeled Exercises Seated Therapy Exercises: Ankle pumps, Long arc quads, Hip flexion, Kicking activity, Hip abd/add, Glut set Seated Reps: 15 NuStep Minutes: 10 NuStep Workload: 3 Treatments Pt transfers to standing and amb in hallway. Pt uses NuStep for 10m at WL 3 followed by Seated EX. Pt returns to recliner to rest with all needs met, call light in hand. Assessment Current Status: Good Progress Pt amb slowly. Pt needs several RB to recover from fatigue. PT Short Term Goals Short Term Goals Time Frame: Oct 11, 2019 Roll Left & Right: 6 Sit to lyin Lying to sitting on side of be: 4 Sit to stand: 4 Chair/dog-xi-qhyjx transfer: 4 Walk 10 feet: 4 Walk 50 feet with two turns: 4 Walk 150 feet: 4 PT Chcf Goals Chcf Goals PT Chcf Goals Time Frame: Oct 25, 2019 Roll Left & Right (QC): 6 Sit to Lying (QC): 6 Lying-Sitting on Side/Bed(QC): 6 Sit to Stand (QC): 6 Chair/Vwn-ll-Tsetf Xfer(QC): 6 Toilet Transfer (QC): 6 Car Transfer (QC): 6 Does the Patient Walk: Yes Walk 10 feet (QC): 6 Walk 50ft with 2 Turns (QC): 6 Walk 150 ft (QC): 6 Walking 10ft on Uneven Surface: 6 1 Step (curb) (QC): 4 4 Steps (QC): 4 12 Steps (QC): 88 Picking up an Object (QC): 4 Does the Pt use WC or Scooter?: No Wheel 50 feet with 2 turns (QC: 9 Wheel 150 feet: 9 PT Plan Problem List Problem List: Activity Tolerance, Functional Strength, Safety, Gait Treatment/Plan Treatment Plan: Continue Plan of Care Treatment Plan: Bed Mobility, Education, Functional Activity Jasper, Functional Strength, Group Therapy, Gait, Safety, Therapeutic Exercise, Transfers Treatment Duration: Oct 25, 2019 Frequency: At least 5 of 7 days/Wk (IRF) Estimated Hrs Per Day: 1.5 hours per day Patient and/or Family Agrees t: Yes Safety Risks/Education Patient Education: Gait Training, Transfer Techniques, Correct Positioning, Safety Issues Teaching Recipient: Patient Teaching Methods: Discussion Response to Teaching: Verbalize Understanding Time/GCodes Time In: 1400 Time Out: 1440 Total Billed Treatment Time: 40 Total Billed Treatment 1, GT (15m) & EX x2 (25m) JAZMIN RODRÍGUEZ REGISTRAR ASSISTANT Oct 04, 2019 15:05
--- NOTE | 2019-10-04 15:59 | ST Cognitive Linguistic Eval ---
Speech Evaluation-General Medical Diagnosis generalized weakness Onset Date: Oct 25, 2019 Therapy Diagnosis Therapy Diagnosis: Cognitive-communication Referral Referring Physician: Dr. Corona Medical History Pertinent Medical History: HTN Reviewed History: Yes Social History Current Living Status: Alone Speech PLF-Current Status Prior Level of Function Patient lived home alone where she was independent for her daily needs. Subjective Patient was pleasant and cooperative with the cognitive assessment. Language Eval: Auditory Comprehends Simple Yes/No Ques: Functional Indent/Objects Multiple Esquivel: Functional Ident/Pics in Multiple Esquivel: Functional Follows 1-Step Commands: Functional Follows Complex Directions: Functional Follows General Conversations: Functional Language Eval: Verbal Language Completes Spontaneous Greeting: Functional Produces Auto, Serial Info: Functional Imitates Simple Words/Phrases: Functional Word Finding: Functional Requests Basic Needs: Functional States Basic Personal Info: Functional Expresses Complex Ideas: Functional Objective Cognitive Domain Attention: WNL Memory: WNL Problem Solving: Functional Executive Functions: WNL Visuospatial Skills: WNL Composite Severity Rating: WNL Clock Drawing Severity Rating: WNL Objective Formal/Standardized Tests [facility] Mental Status ([facility]) Results 28/30, within normal range of function Oral Motor/Speech Production Within Normal Limits Impression Patient is a pleasant 83 y/o female who was admitted to the ARU due to weakness. Patient currently lives at home alone. Patient was given the SLUMS at bedside with a score of 28/30 obtained. This score is within the normal range of function. Patient does not warrant any further ST services at this time. Speech Patient Assess Expression of Ideas/Wants: Expression (4) Understanding Verbal Content: Understands (4) Brief Interview-Mental Status: Yes Repetition of Three Words: Three (3) Temporal Orientation: Year: Correct (3) Temporal Orientation: Month: Accurate within 5 days(2) Temporal Orientation: Day: Correct (1) Recall : Wear to say "Sock": Yes, no cue required (2) Recall : Color: Yes, after cueing (1) Recall : Bed: Yes, no cue required (2) Memory/Recall Ability: Current season, That he or she is in a hsp/hsp unit Speech-Plan Patient/Family Goals Patient/Family Goals: Patient plans on returning to her home upon hospital discharge. Treatment Plan Speech Therapy Treatment Plan: Discontinue ST Treatment Duration: Oct 04, 2019 Frequency: 1 time per week Estimated Hrs Per Day: .25 hour per day Rehab Potential: Fair Barriers to Learning: None identified Pt/Family Agrees to Plan: Yes Safety Risks/Education Teaching Recipient: Patient Teaching Methods: Discussion Response to Teaching: Verbalize Understanding Education Topics Provided: Safety within her room and communication of wants/needs Time Speech Therapy Time In: 15:15 Speech Therapy Time Out: 15:30 Total Billed Time: 15 Billed Treatment Time 1, AINSLEYNDCOMP JT Jiang Oct 04, 2019 15:59
[2019-10-04] MEDS ORDERED: LACTULOSE PO PRN (17:00)
[2019-10-04] MEDS ORDERED: cloNIDine 0.1 MG (CATAPRES) TAB PO PRN (17:00)
[2019-10-04] MEDS ORDERED: ONDANSETRON HCL PO PRN (17:00)
[2019-10-04] MEDS ORDERED: NITROGLYCERIN 0.4 MG SL TABS BTL 25'S SL PRN (17:00)
[2019-10-04 17:34] VITALS: BP 139/67
[2019-10-04] MEDS: PANTOPRAZOLE 40 MG (PROTONIX) TAB PO SCH (18:52)
--- NOTE | 2019-10-04 19:15 | NUR ---
bedside report received FROM BRYANNA DIAS, assume care of pt
[2019-10-04] MEDS ORDERED: NON-FORMULARY MEDICATION 1 EA EA (Brimonidine Tartrate/Timolol (Combigan Eye Drops) 1 DROP OS SCH (21:00)
[2019-10-04] MEDS: TIMOLOL MALEATE 0.5% 5 ML (TIMOPTIC) BTL OS SCH (21:03)
[2019-10-04] MEDS: BRIMONIDINE 0.2% (ALPHAGAN) OPHTH SOLN 5 ML BTL OS SCH (21:04)
[2019-10-04] MEDS: DOCUSATE SODIUM 100 MG (COLACE) CAP PO SCH (21:05)
[2019-10-04] MEDS: LACTULOSE SYRUP 10GM/15ML (ENULOSE) 30ML UDC PO PRN (21:05)
[2019-10-04] MEDS: ALPRAZolam 0.25 MG (XANAX) TAB PO PRN (21:05)
--- NOTE | 2019-10-04 21:05 | NUR ---
requesting Xanax 0.25mg, instructed pt put side rails up & bed alarm in case she might forget to call this nurse, pt verbalized understanding
--- NOTE | 2019-10-04 21:05 | NUR ---
pt refused miralax & Senokot took Colace & wanted Enulose 10gram instead
[2019-10-04] MEDS: polyethylene glycoL POWDER 17 GM (MIRALAX) PACK PO SCH (21:07)
[2019-10-04] MEDS: SENNA W/DOCUSATE (SENOKOT S) TABLET PO SCH (21:07)
[2019-10-05 05:10] VITALS: BP 144/63
[2019-10-05 06:15] LABS: BASOPHILS % (AUTO) 0 % (0-10); EOSINOPHILS # (AUTO) 0.2 10^3/uL (0.0-0.3); EOSINOPHILS % (AUTO) 2 % (0-10); HEMATOCRIT 42 % (35-52); HEMOGLOBIN 14.7 G/DL (11.5-16.0); LYMPHOCYTES # (AUTO) 1.7 X 10^3 (1.0-4.0); LYMPHOCYTES % (AUTO) 21 % (12-44); MEAN CORPUSCULAR HEMOGLOBIN 31 PG (25-34); MEAN CORPUSCULAR HGB CONC 35 G/DL (32-36); MEAN CORPUSCULAR VOLUME 89 FL (80-99); MEAN PLATELET VOLUME 9.3 FL (7.4-10.4); MONOCYTES # (AUTO) 0.9 X 10^3 (0.0-1.0); MONOCYTES % (AUTO) 11 % (0-12); NEUTROPHILS # (AUTO) 5.5 X 10^3 (1.8-7.8); NEUTROPHILS % (AUTO) 66 % (42-75); PLATELET COUNT 198 10^3/uL (130-400); RED CELL DISTRIBUTION WIDTH 13.8 % (10.0-14.5); WHITE BLOOD COUNT 8.3 10^3/uL (4.3-11.0)
--- NOTE | 2019-10-05 06:22 | Individualized Plan of Care ---
Individualized Plan of Care Rehab Nursing IPOC Order Admission Date Oct 04, 2019 at 10:05 Current Orders Orders Admission Order(Inpt,Obs,Sdc) (10/04/19 10:00) Vital Signs: Per Unit Policy ( 08,16,00 (10/04/19 10:00) Anam Porras 09,21 (10/04/19 10:00) Sequential Compression Device Q4H (10/04/19 10:00) Wired Music Operator-Inpt Rehab Con (10/04/19 10:00) Rehab Nursing Orders-Ipoc (10/04/19 10:00) Physical Therapy Rehab Orders (10/04/19 10:00) Occupational Therapy Rehab Ord (10/04/19 10:00) Speech Therapy Rehab Orders (10/04/19 10:00) Cbc With Automated Diff (10/05/19 06:00) Comprehensive Metabolic Panel (10/05/19 06:00) General/Regular (10/04/19 Lunch) Intake & Output 06,14,22 (10/04/19 10:00) Precautions (Aru) (10/04/19 10:00) Rehab-Intensity Of Therapy (10/04/19 10:00) Initiate Admission Nursing Pro .admission (10/04/19 10:00) Alprazolam Tablet (Xanax Tablet) (10/04/19 10:00) Calcium Carbonate Chew Tablet (Antacid C (10/04/19 10:00) Diphenhydramine Tablet (Benadryl Tablet) (10/04/19 10:00) Docusate Sodium Capsule (Colace Capsule) (10/04/19 21:00) Docusate Sodium Capsule (Colace Capsule) (10/04/19 10:00) Bisacodyl Suppository (Dulcolax Supposit (10/04/19 10:00) Lactulose Oral Solution (Enulose Oral So (10/04/19 10:00) Na Phos/Na Biphos Enema (Fleet Enema Almas (10/04/19 10:00) Guaifenesin/Codeine Syrup (Robitussin Ac (10/04/19 10:00) Loperamide Tablet (Imodium Tablet) (10/04/19 10:00) Melatonin Tablet (Melatonin Tablet) (10/04/19 10:00) Polyethylene Glycol Powder Pkt (Miralax (10/04/19 21:00) Ondansetron Oral Dissolve Tab (Zofran (10/04/19 10:00) Senna S Tablet (Senokot S Tablet) (10/04/19 21:00) Initiate Admission Nursing Pro .admission (10/04/19 10:00) Admission Arrival Bed Request (10/04/19 10:32) Patient Visit (10/04/19 ) Pt Eval Moderate Complexity (10/04/19 ) Exercise Therap, Ea 15 Min (10/04/19 ) Functional Activities, Ea 15 (10/04/19 ) Patient Visit (10/04/19 ) Gait Training, Ea 15 Min (10/04/19 ) Exercise Therap, Ea 15 Min (10/04/19 ) Ambulate 08,12,20 (10/04/19 15:08) Sequential Compression Device Q4H (10/04/19 15:08) Dvt/Vte Risk - Notifiy Physici Q4H (10/04/19 15:08) Patient Visit (10/04/19 ) Speech Sound Lang Comp (10/04/19 ) Amlodipine Tablet (Norvasc Tablet) (10/05/19 09:00) Aspirin Enteric Coated Tablet (Ecotrin T (10/05/19 09:00) Clonidine Tablet (Catapres Tablet) (10/04/19 17:00) Clotrimazole 1% Cream (Lotrimin 1% Cream (10/04/19 17:00) Docusate Sodium Capsule (Colace Capsule) (10/04/19 17:00) Lisinopril Tablet (Zestril Tablet) (10/05/19 09:00) Metoprolol Succinate (Xl) Tab (Toprol Xl (10/04/19 19:00) Nitroglycerin 0.4 Mg Btl 25's (Nitrostat (10/04/19 17:00) Pantoprazole Tablet (Protonix Tablet) (10/04/19 19:00) (Nf) Brimonidine Tartrate/Timolol (Combi (10/04/19 21:00) (Nf) Lactulose (Enulose) (10/04/19 17:00) (Nf) Ondansetron Hcl (10/04/19 17:00) Lactulose Oral Solution (Enulose Oral So (10/04/19 17:15) Cyanocobalamin Injection (Vitamin B-12 I (10/27/19 09:00) Brimonidine 0.2% Ophth Soln (Alphagan (10/04/19 21:00) Timolol 0.5% Ophthalmic Soln (Timoptic 0 (10/04/19 21:00) Consult Cardiology (10/04/19 19:10) Patient Visit (10/05/19 ) Exercise Therap, Ea 15 Min (10/05/19 ) Gait Training, Ea 15 Min (10/05/19 ) Functional Activities, Ea 15 (10/05/19 ) Ex Neuromuscular, Ea 15 Min (10/05/19 ) Rehab Nursing Orders: Ongoing Assess. of Cognitive Status, Ongoing Assess. of Function Status, Bladder Management, Bladder Scan, Bladder Training, Bowel Management, Bowel Training, Disease Management & Educaiton, DVT Prophylaxis, Fall Prevention, Fluid/Electrolyte/Nutrition Mgmt, Infection Prevention, M edication Management & Education, Management of Risks & Complications, Management of Skin Intergrity, Nutrition Management, Pain Management, Patient/Family Support, Safety Management, Swallow Precautions Intensity of Therapy to be met Patient to be seen: Min.3h per day/5 of 7d PT IPOC Problem List: Activity Tolerance, Functional Strength, Safety, Gait Treatment Plan: Continue Plan of Care Bed Mobility, Education, Functional Activity Jasper, Functional Strength, Group Therapy, Gait, Safety, Therapeutic Exercise, Transfers Treatment Duration: Oct 25, 2019 Frequency: At least 5 of 7 days/Wk (IRF) Estimated Hrs Per Day: 1.5 hours per day OT IPOC Problems: Decreased Activ Tolerance, Decreased UE Strength, Dependent Transfers, Impaired I ADL's, Impaired Self-Care Skills OT Treatment, Training and Edu: Yes Plan of Care: ADL Retraining, Functional Mobility, Group Exercise/Act as Ind, UE Funct Exercise/Act Treatment Duration: Oct 25, 2019 Frequency: At least 5 of 7 days/Wk (IRF) Estimated Hrs Per Day: 1.[address] IPOC Speech Therapy Treatment Plan: Discontinue ST Treatment Duration: Oct 04, 2019 Frequency: 1 time per week Estimated Hrs Per Day: .25 hour per day Wired Music Operator/Case Mgmt Wired Music Operator/Case Managemen: Discharge Planning Dietitian/Electrician Substation Supervisor Dietitian/Electrician Substation Supervisor to monitor nutritional status and make changes and/or recommendations as needed and work with speech pathology on dietary upgrades as the occur. 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
[2019-10-05 06:42] LABS: ALANINE AMINOTRANSFERASE 13 U/L (0-55); ALBUMIN 3.3 GM/DL (3.2-4.5); ALKALINE PHOSPHATASE 70 U/L (40-136); BILIRUBIN,TOTAL 1.2 MG/DL (0.1-1.0); BUN/CREATININE RATIO 15; CALCIUM 8.4 MG/DL (8.5-10.1); CARBON DIOXIDE 24 MMOL/L (21-32); CHLORIDE 102 MMOL/L (98-107); CREATININE SERUM 0.68 MG/DL (0.60-1.30); GFR ESTIMATED > 60; GLUCOSE 98 MG/DL (70-105); POTASSIUM 3.9 MMOL/L (3.6-5.0); SODIUM 135 MMOL/L (135-145); TOTAL PROTEIN 5.9 GM/DL (6.4-8.2)
--- NOTE | 2019-10-05 09:07 | Physical Therapy Daily Note ---
PT Daily Note-Current Subjective Pt in recliner upon arrival and agrees to PT. Pt stated she slept better last night Mental Status Patient Orientation: Person, Place, Time Transfers SCALE: Activities may be completed with or without assistive devices. 6-Mzbehgmmbl-uzkasga completes the activity by him/herself with no assistance from a helper. 5-Set-up or Clean-up Assistance-helper sets up or cleans up; patient completes activity. Naalehu assists only prior to or following the activity. 4-Supervision or Touching Assistance-helper provides verbal cues and/or touching/steadying and/or contact guard assistance as patient completes activity. Assistance may be provided throughout the activity or intermittently. 3-Partial/Moderate Assistance-helper does LESS THAN HALF the effort. Naalehu lifts, holds or supports trunk or limbs, but provides less than half the effort. 2-Substantial/Maximal Assistance-helper does MORE THAN HALF the effort. Na[place]hu lifts or holds trunk or limbs and provides more than half the effort. 0-Svwuvnqcn-dwnpbj does ALL the effort. Patient does none of the effort to complete the activity. Or, the assistance of 2 or more helpers is required for the patient to complete the activity. If activity was not attempted, code reason: 7-Patient Refused. 9-Not Applicable-not attempted and the patient did not perform the activity before the current illness, exacerbation or injury. 10-Not Attempted due to Environmental Limitations-(lack of equipment, weather restraints, etc.). 88-Not Attempted due to Medical Conditions or Safety Concerns. Sit to Stand (QC): 5 Toilet Transfer (QC): 5 Pt SBA but needs VC for sequencing with sit to stand. Weight Bearing Full Weight Bearing Full Weight Bearing Gait Training Does the Patient Walk?: Yes Distance: 300 Walk 10 feet (QC): 5 Walk 50 ft with 2 Turns(QC): 5 Walk 150 ft (QC): 5 Gait Persons Needed: 1 Gait Assistive Device: FWW Pt kyphotic with shuffling gait. Pt tends to push FWW away from body when fatigued. Exercises Standing: Hip Abduction, Hamstring curls, Heel/toe raises, Marching, Mini squats, Sit to Stand, Unilateral stance Standing Reps: 10 NuStep Minutes: 10 NuStep Workload: 5 Treatments Pt in room and uses restroom prior to going to gym. Pt performs NuStep for 10 mins WL of 5. Pt performs standing exercises followed by seated exercises. Pt amb in hallway and returns to gym. Pt performs sit to stand activity. Pt left in room with OT at end of tx. Assessment Current Status: Good Progress Pt requires frequent rest breaks and easily fatigues. Pt became slightly confused throughout tx, forgetting what exercises we were doing. PT Short Term Goals Short Term Goals Time Frame: Oct 11, 2019 Roll Left & Right: 6 Sit to lyin Lying to sitting on side of be: 4 Sit to stand: 4 Chair/sea-fj-dkexq transfer: 4 Walk 10 feet: 4 Walk 50 feet with two turns: 4 Walk 150 feet: 4 PT Water Quality Assistant Goals Half-Way Goals PT Water Quality Assistant Goals Time Frame: Oct 25, 2019 Roll Left & Right (QC): 6 Sit to Lying (QC): 6 Lying-Sitting on Side/Bed(QC): 6 Sit to Stand (QC): 6 Chair/Fbg-oy-Mwlan Xfer(QC): 6 Toilet Transfer (QC): 6 Car Transfer (QC): 6 Does the Patient Walk: Yes Walk 10 feet (QC): 6 Walk 50ft with 2 Turns (QC): 6 Walk 150 ft (QC): 6 Walking 10ft on Uneven Surface: 6 1 Step (curb) (QC): 4 4 Steps (QC): 4 12 Steps (QC): 88 Picking up an Object (QC): 4 Does the Pt use WC or Scooter?: No Wheel 50 feet with 2 turns (QC: 9 Wheel 150 feet: 9 PT Plan Problem List Problem List: Activity Tolerance, Safety, Gait Treatment/Plan Treatment Plan: Continue Plan of Care Treatment Plan: Bed Mobility, Education, Functional Activity Jasper, Functional Strength, Group Therapy, Gait, Safety, Therapeutic Exercise, Transfers Treatment Duration: Oct 25, 2019 Frequency: At least 5 of 7 days/Wk (IRF) Estimated Hrs Per Day: 1.5 hours per day Patient and/or Family Agrees t: Yes Safety Risks/Education Patient Education: Gait Training, Transfer Techniques, Correct Positioning, Safety Issues Teaching Recipient: Patient Teaching Methods: Demonstration, Discussion Response to Teaching: Return Demonstration, Reinforcement Needed Time/GCodes Time In: 800 Time Out: 900 Total Billed Treatment Time: 60 Total Billed Treatment 1, Ex x2 (30m), FA (15m), GT (15m) JAZMIN RODRÍGUEZ TELEPHONE SOLICITOR SUPERVISOR Oct 05, 2019 09:07
--- NOTE | 2019-10-05 09:30 | PM&R Progress Note ---
Subjective HPI/CC On Admission Date Seen by Provider: Oct 05, 2019 Time Seen by Provider: 09:30 Subjective/Events-last exam Pt doing pretty well Did participate in PT already this morning No pain is reported PRINCESS wraps will be maintained, she doesn't like the rich hose Bowels moved yesterday Labs are normal BP improved Overall feels really good Conferred with RN Checked meds and labs Reviewed therapy notes Review of Systems General: Fatigue, Malaise Pulmonary: Dyspnea Neurological: Weakness Objective Exam Vital Signs Vital Signs Date Time Temp Pulse Resp B/P (MAP) Pulse Ox O2 Delivery O2 Flow Rate FiO2 10/05/19 18:00 36.6 77 18 142/57 (85) 93 Room Air Capillary Refill : Less Than 3 Seconds General Appearance: No Apparent Distress, WD/WN, Anxious, Chronically ill, Obese HEENT: PERRL/EOMI, Normal ENT Inspection, Pharynx Normal Neck: Full Range of Motion, Normal Inspection, Non Tender, Supple, Carotid Bruit Respiratory: Chest Non Tender, Lungs Clear, Normal Breath Sounds, No Accessory Muscle Use, No Respiratory Distress Cardiovascular: Regular Rate, Rhythm, No Edema, No Gallop, No JVD, No Murmur, Normal Peripheral Pulses Gastrointestinal: Normal Bowel Sounds, No Organomegaly, No Pulsatile Mass, Non Tender, Soft Back: Normal Inspection, No CVA Tenderness, No Vertebral Tenderness Extremity: Normal Capillary Refill, Normal Inspection, Normal Range of Motion, Non Tender, No Calf Tenderness, No Pedal Edema Neurologic/Psychiatric: Alert, Oriented x3, No Motor/Sensory Deficits, Normal Mood/Affect, director of recreation therapy II-XII Norm as Tested, Abnormal Gait, Motor Weakness (generalized weakness all extremities) Skin: Normal Color, Warm/Dry Lymphatic: No Adenopathy Results/Procedures Lab Laboratory Tests 10/05/19 06:10 Patient resulted labs reviewed. FIM Transfers Therapy Code Descriptions/Definitions Functional [place] Measure: 0=Not Assessed/NA 4=Minimal Assistance 1=Total Assistance 5=Supervision or Setup 2=Maximal Assistance 6=Modified [place] 3=Moderate Assistance 7=Complete IndependenceSCALE: Activities may be completed with or without assistive devices. 1-Fanurrstee-whpaudi completes the activity by him/herself with no assistance from a helper. 5-Set-up or Clean-up Assistance-helper sets up or cleans up; patient completes activity. [place] assists only prior to or following the activity. 4-Supervision or Touching Assistance-helper provides verbal cues and/or touching/steadying and/or contact guard assistance as patient completes activity. Assistance may be provided throughout the activity or intermittently. 3-Partial/Moderate Assistance-helper does LESS THAN HALF the effort. [place] lifts, holds or supports trunk or limbs, but provides less than half the effort. 2-Substantial/Maximal Assistance-helper does MORE THAN HALF the effort. [place] lifts or holds trunk or limbs and provides more than half the effort. 5-Znixrrebc-redbqa does ALL the effort. Patient does none of the effort to complete the activity. Or, the assistance of 2 or more helpers is required for the patient to complete the activity. If activity was not attempted, code reason: 7-Patient Refused. 9-Not Applicable-not attempted and the patient did not perform the activity before the current illness, exacerbation or injury. 10-Not Attempted due to Environmental Limitations-(lack of equipment, weather restraints, etc.). 88-Not Attempted due to Medical Conditions or Safety Concerns. Roll Left to Right (QC): 6 Sit to Lying (QC): 3 Sit to Stand (QC): 5 Chair/Aln-ri-Lupye Xfer(QC): 4 Car Transfer (QC): 3 Gait Training Does the Patient Walk?: Yes Distance: 300 Walk 10 feet (QC): 5 Walk 50 ft with 2 Turns(QC): 5 Walk 150 ft (QC): 5 Walking 10ft/uneven surface-QC: 3 Gait Persons Needed: 1 Gait Assistive Device: FWW Wheelchair Training Does the Pt Use a Wheelchair?: No Wheel 50 ft with 2 turns (QC): 9 Wheel 150 ft (QC): 9 Stair Training 1 Step (curb) (QC): 88 4 Steps (QC): 88 12 Steps (QC): 88 Balance Picking up an Object (QC): 88 (NT due to poor strength) ADL-Treatment Eating (QC): 6 (Pt reports feeding self and managing containers without assist) Oral Hygiene (QC): 4 Shower/Bathe Self (QC): 3 (Pt required assist to wash buttocks and bilateral lower legs/feet. Bathing completed while seated on shower chair.) Upper Body Dressing (QC): 4 (Pt donned pullover dress with SBA while seated.) Lower Body Dressing (QC): 3 (Pt required assist to thread bilateral LE into Depends. Stood with minimal assistance. Min assist to pull up in back.) On/Off Footwear (QC): 2 (Pt requires max assist to doff/don socks. Pt states she normally does not wear socks unless she is leaving the house. ) Toileting Hygiene (QC): 3 (Pt able to complete toileting hygiene and pull Depends down, but requires min assist to pull Depends up.) Assessment/Plan Assessment and Plan Assess & Plan/Chief Complaint Assessment: Debility Severe weakness Near syncope HTN GERD Glaucoma Plan: IRF protocol Home meds Monitor BP DC Tely Increase ADL's (1) Debility (2) Weakness generalized Status: Acute (3) Transient hypotension Status: Acute (4) Near syncope Status: Acute (5) Microcytic anemia Status: Acute (6) HTN (hypertension) Status: Acute (7) Dyspnea on exertion Status: Acute MARKO ANDERS DO Oct 05, 2019 09:30
[2019-10-05] MEDS: BRIMONIDINE 0.2% (ALPHAGAN) OPHTH SOLN 5 ML BTL OS SCH ×3 (09:48→20:10)
[2019-10-05] MEDS: amLODIPine 5 MG (NORVASC) TAB PO SCH (09:48)
[2019-10-05] MEDS: DOCUSATE SODIUM 100 MG (COLACE) CAP PO SCH ×2 (09:48→20:08)
[2019-10-05] MEDS: ASPIRIN E.C. 81 MG (ECOTRIN) TAB PO SCH (09:48)
[2019-10-05] MEDS: lisINopril 40 MG (PRINIVIL) TABLET PO SCH (09:48)
[2019-10-05] MEDS: TIMOLOL MALEATE 0.5% 5 ML (TIMOPTIC) BTL OS SCH ×2 (09:48→20:10)
[2019-10-05] MEDS: SENNA W/DOCUSATE (SENOKOT S) TABLET PO SCH ×2 (09:50→20:08)
[2019-10-05] MEDS: polyethylene glycoL POWDER 17 GM (MIRALAX) PACK PO SCH ×2 (09:50→20:10)
[2019-10-05] MEDS ORDERED: BENA40TA5 PO (10:53)
--- NOTE | 2019-10-05 13:18 | Occupational Ther Daily Note ---
OT Current Status-Daily Note Subjective Pt in therapy gym post PT tx, agreeable to OT tx at this time. Pt denied pain. Mental Status/Objective Patient Orientation: Normal For Age ADL-Treatment Therapy Code Descriptions/Definitions Functional [place] Measure: 0=Not Assessed/NA 4=Minimal Assistance 1=Total Assistance 5=Supervision or Setup 2=Maximal Assistance 6=Modified [place] 3=Moderate Assistance 7=Complete IndependenceSCALE: Activities may be completed with or without assistive devices. 7-Fzmgwwxgvc-jxsgtto completes the activity by him/herself with no assistance from a helper. 5-Set-up or Clean-up Assistance-helper sets up or cleans up; patient completes activity. [place] assists only prior to or following the activity. 4-Supervision or Touching Assistance-helper provides verbal cues and/or touching/steadying and/or contact guard assistance as patient completes activity. Assistance may be provided throughout the activity or intermittently. 3-Partial/Moderate Assistance-helper does LESS THAN HALF the effort. [place] lifts, holds or supports trunk or limbs, but provides less than half the effort. 2-Substantial/Maximal Assistance-helper does MORE THAN HALF the effort. [place] lifts or holds trunk or limbs and provides more than half the effort. 1-Zrjrailbd-ikaemp does ALL the effort. Patient does none of the effort to complete the activity. Or, the assistance of 2 or more helpers is required for the patient to complete the activity. If activity was not attempted, code reason: 7-Patient Refused. 9-Not Applicable-not attempted and the patient did not perform the activity before the current illness, exacerbation or injury. 10-Not Attempted due to Environmental Limitations-(lack of equipment, weather restraints, etc.). 88-Not Attempted due to Medical Conditions or Safety Concerns. Oral Hygiene (QC): 4 (SBA standing at sink) Upper Body Dressing (QC): 5 (set up at recliner) Lower Body Dressing (QC): 3 (min A, OT educated pt on using AE to don/doff pants. Mod cues throughout task for correct technique.) On/Off Footwear: 3 (mod A, OT educated pt on AE to don/doff socks. Pt able to doff socks using dressing stick, required assistance with sock aide during donning with adjustments for orientation) Toileting Hygiene (QC): 4 (SBA, pt able to manage clothes and complete hygiene) Toilet Transfer (QC): 4 (SBA on/off BSC over toilet.) Other Treatment Pt seated in therapy area, agreeable to OT Tx. Pt took a short rest break, then used 4WW to return to her room with SBA. Pt sat at the recliner, and changed her shirt. She stated she needed to use the restroom, ambulating to the toilet with SBA, she completed toileting and changed her brief. She then stood at the sink to wash her hands and brush her teeth, before returning to the recliner to finish dressing. OT educated pt on AE for LB dressing including dressing stick, adolescent medicine specialist, and sock aide, pt used AE during dressing on this date with moderate cues. Post OT tx, pt seated in recliner, call light in reach and all needs met. Education OT Patient Education: Correct positioning, Energy conservation, Modified ADL techniques, Progress toward Goal/Update tx plan, Purpose of tx/functional activities, Transfer techniques Teaching Recipient: Patient Teaching Methods: Discussion Response to Teaching: Verbalize Understanding OT Short Term Goals Short Term Goals Time Frame: Oct 11, 2019 Toileting hygiene: 4 Lower body dressin OT Negotiations Director Goals Mcc Goals Time Frame: Oct 25, 2019 Eating (QC): 6 Oral Hygiene (QC): 6 Toileting Hygiene (QC): 6 Shower/Bathe Self (QC): 5 Upper Body Dressing (QC): 6 Lower Body Dressing (QC): 6 On/Off Footwear (QC): 5 Additional Goals: 1-Demonstrate ADL Tasks, 2-Verbalize Understanding, 3- ImproveStrength/Jasper 1=Demonstrate adherence to instructed precautions during ADL tasks. 2=Patient will verbalize/demonstrate understanding of assistive devices/modifications for ADL. 3=Patient will improve strength/tolerance for activity to enable patient to perform ADL's. OT Education/Plan Problem List/Assessment Assessment: Decreased Activ Tolerance, Decreased UE Strength, Impaired Funct Balance, Impaired I ADL's, Impaired Self-Care Skills Discharge Recommendations Plan/Recommendations: Continue POC Treatment Plan/Plan of Care Patient would benefit from OT for education, treatment and training to promote independence in ADL's, mobility, safety and/or upper extremity function for ADL's. Plan of Care: ADL Retraining, Functional Mobility, Group Exercise/Act as Ind, UE Funct Exercise/Act Treatment Duration: Oct 25, 2019 Frequency: At least 5 of 7 days/Wk (IRF) Estimated Hrs Per Day: 1.5 hours per day Agreement: Yes Rehab Potential: Fair Time/GCodes Start Time: 09:00 Stop Time: 09:45 Total Time Billed (hr/min): 45 Billed Treatment Time 1, ADL 3 BOOM JUNIOR OT Oct 05, 2019 13:18
--- NOTE | 2019-10-05 13:33 | Occupational Ther Daily Note ---
OT Current Status-Daily Note Subjective Pt seated in recliner, agreeable to OT tx at this time. Pt reports she is finished with lunch, and she enjoyed lunch today. ADL-Treatment Therapy Code Descriptions/Definitions Functional [place] Measure: 0=Not Assessed/NA 4=Minimal Assistance 1=Total Assistance 5=Supervision or Setup 2=Maximal Assistance 6=Modified [place] 3=Moderate Assistance 7=Complete IndependenceSCALE: Activities may be completed with or without assistive devices. 6-Rbhmjpbyqi-ygkugvj completes the activity by him/herself with no assistance from a helper. 5-Set-up or Clean-up Assistance-helper sets up or cleans up; patient completes activity. [place] assists only prior to or following the activity. 4-Supervision or Touching Assistance-helper provides verbal cues and/or touching/steadying and/or contact guard assistance as patient completes a ctivity. Assistance may be provided throughout the activity or intermittently. 3-Partial/Moderate Assistance-helper does LESS THAN HALF the effort. [place] lifts, holds or supports trunk or limbs, but provides less than half the effort. 2-Substantial/Maximal Assistance-helper does MORE THAN HALF the effort. [place] lifts or holds trunk or limbs and provides more than half the effort. 1-Wycbosgeb-hyyyxp does ALL the effort. Patient does none of the effort to complete the activity. Or, the assistance of 2 or more helpers is required for the patient to complete the activity. If activity was not attempted, code reason: 7-Patient Refused. 9-Not Applicable-not attempted and the patient did not perform the activity before the current illness, exacerbation or injury. 10-Not Attempted due to Environmental Limitations-(lack of equipment, weather restraints, etc.). 88-Not Attempted due to Medical Conditions or Safety Concerns. Eating (QC): 6 (Per pt report, she had no difficulty with eating lunch) Toileting Hygiene (QC): 4 (pt able to manage clothing down and hygiene. while managing clothing up, pt swayed backwards towards BSC requiring CGA) Toilet Transfer (QC): 4 (CGA) Other Treatment Pt seated in recliner, agreed to OT Tx with focus on UEs. Pt states she better attempt to toilet before going to the gym. Pt stood from recliner with SBA, then SBA into bathroom and onto BS over toilet. Pt completed toileting, then stood up from commode with SBA. While managing clothing, pt swayed slightly backwards requiring CGA. Pt then ambulated to therapy area with SBA using 4WW. Pt completed x10 mins on arm bike, min resistance with rest breaks as needed in order to increase BUE strength and functional endurance. Pt then placed pegs into foam pegboard in order to increase endurance and fine motor strength. Pt reports it is a little "tougher" with her right hand, she recalled prior medical history about how she broke her right radius and ulna requiring a plate. Pt able to place x100 pegs, alternating hands with rest breaks as needed. After task, pt returned to her room using 4WW with CGA. Pt transferred to recliner, OT elevated pt's legs. Post OT Tx, pt in recliner, call light in reach and all needs met. Education OT Patient Education: Correct positioning, Energy conservation, Exercise program, Modified ADL techniques, Progress toward Goal/Update tx plan, Purpose of tx/functional activities, Transfer techniques Teaching Recipient: Patient Teaching Methods: Discussion Response to Teaching: Verbalize Understanding OT Short Term Goals Short Term Goals Time Frame: Oct 11, 2019 Toileting hygiene: 4 Lower body dressin OT Care Home Goals Director Learning Goals Time Frame: Oct 25, 2019 Eating (QC): 6 Oral Hygiene (QC): 6 Toileting Hygiene (QC): 6 Shower/Bathe Self (QC): 5 Upper Body Dressing (QC): 6 Lower Body Dressing (QC): 6 On/Off Footwear (QC): 5 Additional Goals: 1-Demonstrate ADL Tasks, 2-Verbalize Understanding, 3-Improv eStrength/Jasper 1=Demonstrate adherence to instructed precautions during ADL tasks. 2=Patient will verbalize/demonstrate understanding of assistive devices/modifications for ADL. 3=Patient will improve strength/tolerance for activity to enable patient to p erform ADL's. OT Education/Plan Problem List/Assessment Assessment: Decreased Activ Tolerance, Decreased UE Strength, Impaired Funct Balance, Impaired I ADL's, Impaired Self-Care Skills Discharge Recommendations Plan/Recommendations: Continue POC Treatment Plan/Plan of Care Patient would benefit from OT for education, treatment and training to promote independence in ADL's, mobility, safety and/or upper extremity function for ADL's. Plan of Care: ADL Retraining, Functional Mobility, Group Exercise/Act as Ind, U E Funct Exercise/Act Treatment Duration: Oct 25, 2019 Frequency: At least 5 of 7 days/Wk (IRF) Estimated Hrs Per Day: 1.5 hours per day Agreement: Yes Rehab Potential: Fair Time/GCodes Start Time: 13:00 Stop Time: 13:45 Total Time Billed (hr/min): 45 Billed Treatment Time 1, EX (10'), FA 2 (35') BOOM JUNIOR OT Oct 05, 2019 13:33
--- NOTE | 2019-10-05 13:34 | NUR ---
CM/SS ADMISSION Patient admitted to ARU 10/04/19 from OBS status AVCP for debility and severe generalized weakness. Additional comorbidities are, in part, transient hypotension, near syncope, microcytic anemia, HTN, dyspnea on exertion. Patient was about 10 years ago, she resides home alone and fully intends to return there at discharge. She has two children in her same town she describes as very supportive and who supplement her daily needs. They bring her dinner daily and are currently doing her shopping/delivery due to her limitations. Patient apparently had a glaucoma surgery and has chosen not to drive since that time. Patient has a seamless tube roller that comes once weekly. PCP: Dr. Tera Alicea [facility] PHARMACY: [facility] INSURANCE: Medicare, [employer] [facility] Supplement DME: Patient has 4WW, bath stool, high rise toilet, ramp. Patient states her spouse had a stroke and they modified their home for handicap accessibility at that time. BARRIERS TO DISCHARGE PLANNING: Recuperation to level of safety to reside alone, advanced age, multiple comorbidities, acute conditions increasing fall risk. CONTACTS: Tee Shah (Judah), Daughter [address] [place] [address] [phone] Jose De Jesus Nicolas, Son [address] [place] [address] Patient understands the purpose and process of the weekly patient care conference and that her first review will be 10/11/19.
--- NOTE | 2019-10-05 14:00 | Cardiology Progress Note ---
Cardiology SOAP Progress Note Subjective: No current cardiac complaints. Objective: I&O/Vital Signs 10/05/19 10/05/19 05:10 08:20 Temp 36.0 Pulse 72 Resp 18 B/P (MAP) 144/63 (90) Pulse Ox 94 O2 Delivery Room Air Room Air 10/05/19 00:00 Intake Total 600 ml Balance 600 ml Weight (Pounds): 188 Weight (Ounces): 1.6 Weight (Calculated Kilograms): 85.460550 Constitutional: AAO x 3, PERRL, well-developed, well-nourished Respiratory: chest is bilaterally symmetric, lungs clear to auscultation Cardiovascular: regular rate-rhythm, S1 and S2; No diastolic murmur, No systolic murmur Gastrointestional: soft, audible bowel sounds Extremities: normal range of motion, non-tender, normal inspection, no lower extremity edema bilateral Neurologic/Psychiatric: no motor/sensory deficits, alert, normal mood/affect, oriented x 3 Skin: normal color, warm/dry Results/Procedures: Labs Laboratory Tests 10/05/19 06:10: White Blood Count 8.3, Red Blood Count 4.72, Hemoglobin 14.7, Hematocrit 42, Mean Corpuscular Volume 89, Mean Corpuscular Hemoglobin 31, Mean Corpuscular Hemoglobin Concent 35, Red Cell Distribution Width 13.8, Platelet Count 198, Mean Platelet Volume 9.3, Neutrophils (%) (Auto) 66, Lymphocytes (%) (Auto) 21, Monocytes (%) (Auto) 11, Eosinophils (%) (Auto) 2, Basophils (%) (Auto) 0, Neutrophils # (Auto) 5.5, Lymphocytes # (Auto) 1.7, Monocytes # (Auto) 0.9, Eosinophils # (Auto) 0.2, Basophils # (Auto) 0.0, Sodium Level 135, Potassium Level 3.9, Chloride Level 102, Carbon Dioxide Level 24, Anion Gap 9, Blood Urea Nitrogen 10, Creatinine 0.68, Estimat Glomerular Filtration Rate > 60, BUN/Creatinine Ratio 15, Glucose Level 98, Calcium Level 8.4L, Corrected Calcium 9.0, Total Bilirubin 1.2H, Aspartate Amino Transf (AST/SGOT) 17, Alanine Aminotransferase (ALT/SGPT) 13, Alkaline Phosphatase 70, Total Protein 5.9L, Albumin 3.3 A/P: Assessment/Dx: Nausea, diverticulitis, Shortness of breath, significantly resolved. Acute on chronic diastolic congestive heart failure, Borderline positive troponin, negative nuclear stress test. Hypertensive heart disease Plan: Nausea, diverticulitis, defer to the primary team. Shortness of breath, echocardiogram shows moderate LVH with moderate diastolic dysfunction. Normal LV function. Moderate tricuspid regurgitation. Acute on chronic mild diastolic congestive heart failure, I will hold off on giving Lasix for now. Shortness of breath is likely multifactorial. resolved. Borderline positive troponin, nuclear stress test done 10/03/2019 which showed no evidence of ischemia or infarction. Likely secondary to severe hypertension. Hypertensive heart disease, aggressive blood pressure control. good BP. Thank you for your consultation. Please call me if you have any questions. Kalpana Zamudio MD, FACP, FACC, FSCAI, FHRS, CCDS Interventional Cardiology Cardiac Electrophysiology Vascular Medicine and Endovascular Interventions Bethanie ZAMUDIO MD Oct 05, 2019 14:00
--- NOTE | 2019-10-05 14:17 | NUR ---
"RD ASSESSMENT PMHx: hypercholesterolemia; HTN; GERD; chronic constipation; diverticulosis; hiatal hernia; parathyroid disease; PT INTERACTION: Pt was awake and pleasant during nutrition assessment. Pt states current appetite is not good, and has been this way for about 2w. Note avg PO intake 63% x2meal, per chart review. Pt states following a regular diet at home, and has no issues with chewing/swallowing food. Pt states some recent issues with nausea, vomiting, constipation, and diarrhea, and that her last BM was 10/02. Note pt currently on bowel regimen of colace BID; senna BID; and miralax BID, per chart review. Pt states recent 10# wt gain, stating it started when she couldn't leave the house d/t COVID. Note unable to determine recent wt hx, per chart review. ABNORMAL NUTRITION-RELATED LAB VALUES LOW: Ca 8.4; Pro 5.9 HIGH: bili 1.2 Est. kcal needs: 1275 kcal | 15 kcal/kg Est. Pro needs: 68 g Pro | 0.8 g Pro/kg PES STATEMENT: Inadequate oral intake (NI-2.1) related to loss of appetite | nausea | vomiting | constipation | diarrhea as evidenced by pt interview | avg PO intake 63% x2meal INTERVENTION: Continue with current diet order of Regular diet. Pt may benefit from nutrition supplementation if PO intake declines. Encouraged pt to eat when able. Will continue to follow and reassess as pt needs, intake, and status change. MONITOR/EVALUATE: PO Intake; Plan of Care; Hydration Status; Weight Status; Lab Values Fátima Field, MS, RD, LD"
--- NOTE | 2019-10-05 14:20 | Physical Therapy Daily Note ---
PT Daily Note-Current Subjective Pt sitting in recliner upon arrival. Pt agrees to PT. Pain Location: No Pain Reported Mental Status Patient Orientation: Person, Place, Situation Transfers SCALE: Activities may be completed with or without assistive devices. 8-Cfblviwiui-zdkhaxe completes the activity by him/herself with no assistance from a helper. 5-Set-up or Clean-up Assistance-helper sets up or cleans up; patient completes activity. [place] assists only prior to or following the activity. 4-Supervision or Touching Assistance-helper provides verbal cues and/or touching/steadying and/or contact guard assistance as patient completes activity. Assistance may be provided throughout the activity or intermittently. 3-Partial/Moderate Assistance-helper does LESS THAN HALF the effort. [place] lifts, holds or supports trunk or limbs, but provides less than half the effort. 2-Substantial/Maximal Assistance-helper does MORE THAN HALF the effort. [place] lifts or holds trunk or limbs and provides more than half the effort. 0-Pkyppgzjg-urjkls does ALL the effort. Patient does none of the effort to complete the activity. Or, the assistance of 2 or more helpers is required for the patient to complete the activity. If activity was not attempted, code reason: 7-Patient Refused. 9-Not Applicable-not attempted and the patient did not perform the activity before the current illness, exacerbation or injury. 10-Not Attempted due to Environmental Limitations-(lack of equipment, weather restraints, etc.). 88-Not Attempted due to Medical Conditions or Safety Concerns. Sit to Stand (QC): 5 Weight Bearing Full Weight Bearing Full Weight Bearing Gait Training Does the Patient Walk?: Yes Distance: 150', Walk 10 feet (QC): 5 Walk 50 ft with 2 Turns(QC): 5 Walk 150 ft (QC): 5 Gait Persons Needed: 1 Gait Assistive Device: Walker 4 Wheeled Pt given VC for walking w/in 4WW and sequencing for sit to stand transfers. Pt has wide NAIN and shuffling gait when fatigued. Exercises Standing: Sit to Stand Standing Reps: 10 Treatments Pt amb in hallway 150' prior to going to gym. Pt performs balance activities taken from Wang testing (eyes closed, tandem stance, 360 spin, sit to stand w/o hands). Pt performs sit to stands x10 prior to amb around hallway. Pt returns to recliner in room and was left with all needs met, call light in hand. Assessment Current Status: Good Progress Pt requires frequent rest breaks. Pt had some near LOB during balance activities but self corrected. Pt confused throughout tx needing reminders on what activity we were performing. PT Short Term Goals Short Term Goals Time Frame: Oct 11, 2019 Roll Left & Right: 6 Sit to lyin Lying to sitting on side of be: 4 Sit to stand: 4 Chair/wab-rb-jkhjc transfer: 4 Walk 10 feet: 4 Walk 50 feet with two turns: 4 Walk 150 feet: 4 PT Machine Room Operator Goals [facility] Goals PT Machine Room Operator Goals Time Frame: Oct 25, 2019 Roll Left & Right (QC): 6 Sit to Lying (QC): 6 Lying-Sitting on Side/Bed(QC): 6 Sit to Stand (QC): 6 Chair/Exm-nc-Lrpjk Xfer(QC): 6 Toilet Transfer (QC): 6 Car Transfer (QC): 6 Does the Patient Walk: Yes Walk 10 feet (QC): 6 Walk 50ft with 2 Turns (QC): 6 Walk 150 ft (QC): 6 Walking 10ft on Uneven Surface: 6 1 Step (curb) (QC): 4 4 Steps (QC): 4 12 Steps (QC): 88 Picking up an Object (QC): 4 Does the Pt use WC or Scooter?: No Wheel 50 feet with 2 turns (QC: 9 Wheel 150 feet: 9 PT Plan Problem List Problem List: Activity Tolerance, Functional Strength, Safety, Balance, Gait Treatment/Plan Treatment Plan: Continue Plan of Care Treatment Plan: Bed Mobility, Education, Functional Activity [place], Functional Strength, Group Therapy, Gait, Safety, Therapeutic Exercise, Transfers Treatment Duration: Oct 25, 2019 Frequency: At least 5 of 7 days/Wk (IRF) Estimated Hrs Per Day: 1.5 hours per day Patient and/or Family Agrees t: Yes Safety Risks/Education Patient Education: Gait Training, Correct Positioning, Safety Issues Teaching Recipient: Patient Teaching Methods: Demonstration, Discussion Response to Teaching: Reinforcement Needed Time/GCodes Time In: 1400 Time Out: 1430 Total Billed Treatment Time: 30 Total Billed Treatment 1, GT (15m), NM (15m) JAZMIN RODRÍGUEZ PTA Oct 05, 2019 14:20
[2019-10-05] MEDS: LACTULOSE SYRUP 10GM/15ML (ENULOSE) 30ML UDC PO PRN (16:59)
[2019-10-05 18:00] VITALS: BP 142/57
[2019-10-05] MEDS: PANTOPRAZOLE 40 MG (PROTONIX) TAB PO SCH (18:13)
[2019-10-05] MEDS ORDERED: PRED5DRO ×2 (18:57→19:29)
[2019-10-05] MEDS: ALPRAZolam 0.25 MG (XANAX) TAB PO PRN (20:09)
[2019-10-06 05:27] VITALS: BP 169/75
--- NOTE | 2019-10-06 06:31 | PM&R Progress Note ---
Subjective HPI/CC On Admission Date Seen by Provider: Oct 06, 2019 Time Seen by Provider: 09:30 Subjective/Events-last exam Pt doing pretty well and improving each day Participated in PT already this morning and feels worn out but improved No pain is reported PRINCESS wraps will be maintained which is resolving the edema Bowels have not moved so multiple meds will be given BP improved Reglan will be restarted since she had some nausea this am with bfast Overall feels really good Conferred with RN Checked meds and labs Reviewed therapy notes Review of Systems General: Fatigue, Malaise Objective Exam Vital Signs Vital Signs Date Time Temp Pulse Resp B/P (MAP) Pulse Ox O2 Delivery O2 Flow Rate FiO2 10/06/19 20:00 Room Air 10/06/19 16:04 36.8 70 16 119/54 (75) 95 Capillary Refill : Less Than 3 Seconds General Appearance: No Apparent Distress, WD/WN, Anxious, Chronically ill, Obese HEENT: PERRL/EOMI, Normal ENT Inspection, Pharynx Normal Neck: Full Range of Motion, Normal Inspection, Non Tender, Supple, Carotid Bruit Respiratory: Chest Non Tender, Lungs Clear, Normal Breath Sounds, No Accessory Muscle Use, No Respiratory Distress Cardiovascular: Regular Rate, Rhythm, No Edema, No Gallop, No JVD, No Murmur, Normal Peripheral Pulses Gastrointestinal: Normal Bowel Sounds, No Organomegaly, No Pulsatile Mass, Non Tender, Soft Back: Normal Inspection, No CVA Tenderness, No Vertebral Tenderness Extremity: Normal Capillary Refill, Normal Inspection, Normal Range of Motion, Non Tender, No Calf Tenderness, No Pedal Edema Neurologic/Psychiatric: Alert, Oriented x3, No Motor/Sensory Deficits, Normal Mood/Affect, detailer furniture II-XII Norm as Tested, Abnormal Gait, Motor Weakness (generalized weakness all extremities) Skin: Normal Color, Warm/Dry Lymphatic: No Adenopathy Results/Procedures Lab Patient resulted labs reviewed. FIM Transfers Therapy Code Descriptions/Definitions Functional [place] Measure: 0=Not Assessed/NA 4=Minimal Assistance 1=Total Assistance 5=Supervision or Setup 2=Maximal Assistance 6=Modified [place] 3=Moderate Assistance 7=Complete IndependenceSCALE: Activities may be completed with or without assistive devices. 5-Xiuvwfbwfs-xvbasqh completes the activity by him/herself with no assistance from a helper. 5-Set-up or Clean-up Assistance-helper sets up or cleans up; patient completes activity. [place] assists only prior to or following the activity. 4-Supervision or Touching Assistance-helper provides verbal cues and/or kuldip kamla/steadying and/or contact guard assistance as patient completes activity. Assistance may be provided throughout the activity or intermittently. 3-Partial/Moderate Assistance-helper does LESS THAN HALF the effort. [place] lifts, holds or supports trunk or limbs, but provides less than half the effort. 2-Substantial/Maximal Assistance-helper does MORE THAN HALF the effort. [place] lifts or holds trunk or limbs and provides more than half the effort. 7-Eixrgkwuz-nczvck does ALL the effort. Patient does none of the effort to complete the activity. Or, the assistance of 2 or more helpers is required for the patient to complete the activity. If activity was not attempted, code reason: 7-Patient Refused. 9-Not Applicable-not attempted and the patient did not perform the activity before the current illness, exacerbation or injury. 10-Not Attempted due to Environmental Limitations-(lack of equipment, weather restraints, etc.). 88-Not Attempted due to Medical Conditions or Safety Concerns. Roll Left to Right (QC): 6 Sit to Lying (QC): 3 Sit to Stand (QC): 5 Chair/Aji-pn-Jgmzd Xfer(QC): 4 Car Transfer (QC): 3 Gait Training Does the Patient Walk?: Yes Distance: 150', Walk 10 feet (QC): 5 Walk 50 ft with 2 Turns(QC): 5 Walk 150 ft (QC): 5 Walking 10ft/uneven surface-QC: 3 Gait Persons Needed: 1 Gait Assistive Device: Walker 4 Wheeled Wheelchair Training Does the Pt Use a Wheelchair?: No Wheel 50 ft with 2 turns (QC): 9 Wheel 150 ft (QC): 9 Stair Training 1 Step (curb) (QC): 88 4 Steps (QC): 88 12 Steps (QC): 88 Balance Picking up an Object (QC): 88 (NT due to poor strength) ADL-Treatment Eating (QC): 6 (Per pt report, she had no difficulty with eating lunch) Oral Hygiene (QC): 4 (SBA standing at sink) Shower/Bathe Self (QC): 3 (Pt required assist to wash buttocks and bilateral lower legs/feet. Bathing completed while seated on shower chair.) Upper Body Dressing (QC): 5 (set up at recliner) Lower Body Dressing (QC): 3 (min A, OT educated pt on using AE to don/doff pants. Mod cues throughout task for correct technique.) On/Off Footwear (QC): 3 (mod A, OT educated pt on AE to don/doff socks. Pt able to doff socks using dressing stick, required assistance with sock aide during donning with adjustments for orientation) Toileting Hygiene (QC): 4 (pt able to manage clothing down and hygiene. while managing clothing up, pt swayed backwards towards BSC requiring CGA) Toilet Transfer (QC): 4 (CGA) Assessment/Plan Assessment and Plan Assess & Plan/Chief Complaint Assessment: Debility Severe weakness Near syncope HTN GERD Glaucoma Gastroparesis Edema legs Plan: IRF protocol Home meds Monitor BP PRINCESS wraps to legs BM treatment Increase ADL's (1) Debility (2) Weakness generalized Status: Acute (3) Transient hypotension Status: Acute (4) Near syncope Status: Acute (5) Microcytic anemia Status: Acute (6) HTN (hypertension) Status: Acute (7) Dyspnea on exertion Status: Acute MARKO ANDERS DO Oct 06, 2019 06:31
[2019-10-06] MEDS: ONDANSETRON 4 MG (ZOFRAN) ORAL DISSOLVE TAB PO PRN (07:26)
--- NOTE | 2019-10-06 08:58 | Physical Therapy Daily Note ---
PT Daily Note-Current Subjective Pt in recliner upon arrival and agrees to tx. Pt states she feels nauseas but was already given meds from nurse. Mental Status Patient Orientation: Person, Place, Time Transfers SCALE: Activities may be completed with or without assistive devices. 6-Lwhyefhwbo-hncdwgc completes the activity by him/herself with no assistance from a helper. 5-Set-up or Clean-up Assistance-helper sets up or cleans up; patient completes activity. [place] assists only prior to or following the activity. 4-Supervision or Touching Assistance-helper provides verbal cues and/or touching/steadying and/or contact guard assistance as patient completes activity. Assistance may be provided throughout the activity or intermittently. 3-Partial/Moderate Assistance-helper does LESS THAN HALF the effort. [place] lifts, holds or supports trunk or limbs, but provides less than half the effort. 2-Substantial/Maximal Assistance-helper does MORE THAN HALF the effort. [place] lifts or holds trunk or limbs and provides more than half the effort. 8-Thljsokyz-gahqgc does ALL the effort. Patient does none of the effort to complete the activity. Or, the assistance of 2 or more helpers is required for the patient to complete the activity. If activity was not attempted, code reason: 7-Patient Refused. 9-Not Applicable-not attempted and the patient did not perform the activity before the current illness, exacerbation or injury. 10-Not Attempted due to Environmental Limitations-(lack of equipment, weather restraints, etc.). 88-Not Attempted due to Medical Conditions or Safety Concerns. Sit to Stand (QC): 5 Toilet Transfer (QC): 5 Sit to stand needs VC to remind her to lock FWW and push up from chair. Weight Bearing Full Weight Bearing Full Weight Bearing Gait Training Does the Patient Walk?: Yes Distance: 150 Walk 10 feet (QC): 5 Walk 50 ft with 2 Turns(QC): 5 Walk 150 ft (QC): 5 Gait Assistive Device: FWW Pt has short, shuffling gait with a wide NAIN. Pt tends to push FWW far in front of her and needs VC to keep it closer. Exercises Seated Therapy Exercises: Long arc quads, Glut set Seated Reps: 12 Standing: Hip Abduction, Hamstring curls, Heel/toe raises, Marching, Sit to Stand Standing Reps: 12 NuStep Minutes: 15 NuStep Workload: 4 Treatments Pt uses restroom upon arrival. Pt amb through hallway prior to using NuStep. Pt performs standing exercises followed by seated exercises. Pt amb through [place], taking breaks to practice sit to stand. Assessment Current Status: Good Progress Pt needs frequent rest breaks and easily fatigues. Pt needs VC to remind her sequencing for sit to stand. Pt becomes confused during exercise, needing reminders to what we are doing. PT Short Term Goals Short Term Goals Time Frame: Oct 11, 2019 Roll Left & Right: 6 Sit to lyin Lying to sitting on side of be: 4 Sit to stand: 4 Chair/dnz-oo-urobh transfer: 4 Walk 10 feet: 4 Walk 50 feet with two turns: 4 Walk 150 feet: 4 PT Pneumatic Tube Repairer Goals Pneumatic Tube Repairer Goals PT Pneumatic Tube Repairer Goals Time Frame: Oct 25, 2019 Roll Left & Right (QC): 6 Sit to Lying (QC): 6 Lying-Sitting on Side/Bed(QC): 6 Sit to Stand (QC): 6 Chair/Cyx-ml-Hacjy Xfer(QC): 6 Toilet Transfer (QC): 6 Car Transfer (QC): 6 Does the Patient Walk: Yes Walk 10 feet (QC): 6 Walk 50ft with 2 Turns (QC): 6 Walk 150 ft (QC): 6 Walking 10ft on Uneven Surface: 6 1 Step (curb) (QC): 4 4 Steps (QC): 4 12 Steps (QC): 88 Picking up an Object (QC): 4 Does the Pt use WC or Scooter?: No Wheel 50 feet with 2 turns (QC: 9 Wheel 150 feet: 9 PT Plan Problem List Problem List: Activity Tolerance, Safety, Balance Treatment/Plan Treatment Plan: Continue Plan of Care Treatment Plan: Bed Mobility, Education, Functional Activity [place], Functional Strength, Group Therapy, Gait, Safety, Therapeutic Exercise, Transfers Treatment Duration: Oct 25, 2019 Frequency: At least 5 of 7 days/Wk (IRF) Estimated Hrs Per Day: 1.5 hours per day Patient and/or Family Agrees t: Yes Safety Risks/Education Patient Education: Gait Training, Correct Positioning, Safety Issues Teaching Recipient: Patient Teaching Methods: Demonstration, Discussion Response to Teaching: Return Demonstration, Reinforcement Needed Time/GCodes Time In: 800 Time Out: 900 Total Billed Treatment Time: 60 Total Billed Treatment 1, Ex x2 (30m), GT (15m), FA (15m) CEDRIC DODD RN CHRONIC Oct 06, 2019 08:58
[2019-10-06 09:30] VITALS: BP 134/60
[2019-10-06] MEDS: amLODIPine 5 MG (NORVASC) TAB PO SCH (09:31)
[2019-10-06] MEDS: polyethylene glycoL POWDER 17 GM (MIRALAX) PACK PO SCH ×2 (09:31→21:12)
[2019-10-06] MEDS: ASPIRIN E.C. 81 MG (ECOTRIN) TAB PO SCH (09:31)
[2019-10-06] MEDS: DOCUSATE SODIUM 100 MG (COLACE) CAP PO SCH ×2 (09:31→21:13)
[2019-10-06] MEDS: lisINopril 40 MG (PRINIVIL) TABLET PO SCH (09:31)
[2019-10-06] MEDS: SENNA W/DOCUSATE (SENOKOT S) TABLET PO SCH ×2 (09:31→20:44)
[2019-10-06] MEDS: TIMOLOL MALEATE 0.5% 5 ML (TIMOPTIC) BTL OS SCH ×2 (09:34→20:38)
[2019-10-06] MEDS: BRIMONIDINE 0.2% (ALPHAGAN) OPHTH SOLN 5 ML BTL OS SCH ×3 (09:34→20:38)
--- NOTE | 2019-10-06 11:13 | Occupational Ther Daily Note ---
OT Current Status-Daily Note Subjective Pt. in reclining chair when OT entered room. Pt requested bathing in chair this am. No c/o pain. Mental Status/Objective Patient Orientation: Person, Place, Time, Situation ADL-Treatment Therapy Code Descriptions/Definitions Functional [place] Measure: 0=Not Assessed/NA 4=Minimal Assistance 1=Total Assistance 5=Supervision or Setup 2=Maximal Assistance 6=Modified [place] 3=Moderate Assistance 7=Complete IndependenceSCALE: Activities may be completed with or without assistive devices. 3-Fgtmgmguly-dgrzjod completes the activity by him/herself with no assistance from a helper. 5-Set-up or Clean-up Assistance-helper sets up or cleans up; patient completes activity. [place] assists only prior to or following the activity. 4-Supervision or Touching Assistance-helper provides verbal cues and/or touching/steadying and/or contact guard assistance as patient completes activity. Assistance may be provided throughout the activity or intermittently. 3-Partial/Moderate Assistance-helper does LESS THAN HALF the effort. [place] lifts, holds or supports trunk or limbs, but provides less than half the effort. 2-Substantial/Maximal Assistance-helper does MORE THAN HALF the effort. [place] lifts or holds trunk or limbs and provides more than half the effort. 7-Wckdqvvsx-vsftxx does ALL the effort. Patient does none of the effort to complete the activity. Or, the assistance of 2 or more helpers is required for the patient to complete the activity. If activity was not attempted, code reason: 7-Patient Refused. 9-Not Applicable-not attempted and the patient did not perform the activity before the current illness, exacerbation or injury. 10-Not Attempted due to Environmental Limitations-(lack of equipment, weather restraints, etc.). 88-Not Attempted due to Medical Conditions or Safety Concerns. Oral Hygiene (QC): 5 Shower/Bathe Self (QC): 4 Upper Body Dressing (QC): 4 Lower Body Dressing (QC): 3 On/Off Footwear: 3 Toileting Hygiene (QC): 4 Toilet Transfer (QC): 4 Pt. provided warm wash cloths, towels, and a long handled sponge. She required CGA for bathing and drying while seated in chair. Pt. doffed and donned brief with mod A using dressing stick. CGA required for dressing UB. While using a sock aid and dressing stick, pt required mod assist to doff and magen slipper soc ks primarily for pulling sock onto foot with sock aid and adjusting after sock on foot. Pt. then ambulated to bathroom using 4ww and CGA for safety. Pt. independent in toilet hygiene. Pt. then ambulated to therapy gym with 4ww, CGA, and extra time. Once in gym, pt. tolerated 10 minutes on arm bike on minimal resistance with rest breaks to increase BUE ROM, activity tolerance, and overall endurance for daily tasks. Pt. then ambulated back to room with 4ww, CGA, and extra time. Pt. seated in reclining chair with call light and phone within reach. All needs met. Education OT Patient Education: Correct positioning, Disease process, Modified ADL techniques, Progress toward Goal/Update tx plan, Purpose of tx/functional activities, Rehab process, Use of adapted equipment Teaching Recipient: Patient Teaching Methods: Demonstration, Discussion Response to Teaching: Verbalize Understanding, Return Demonstration OT Short Term Goals Short Term Goals Time Frame: Oct 11, 2019 Toileting hygiene: 4 Lower body dressin OT Fpc Goals X Ray Technologist Goals Time Frame: Oct 25, 2019 Eating (QC): 6 Oral Hygiene (QC): 6 Toileting Hygiene (QC): 6 Shower/Bathe Self (QC): 5 Upper Body Dressing (QC): 6 Lower Body Dressing (QC): 6 On/Off Footwear (QC): 5 Additional Goals: 1-Demonstrate ADL Tasks, 2-Verbalize Understanding, 3- ImproveStrength/[place] 1=Demonstrate adherence to instructed precautions during ADL tasks. 2=Patient will verbalize/demonstrate understanding of assistive devices/modifications for ADL. 3=Patient will improve strength/tolerance for activity to enable patient to perform ADL's. OT Education/Plan Problem List/Assessment Assessment: Decreased Activ Tolerance, Decreased UE Strength, Dependent Transfers, Impaired Funct Balance, Impaired I ADL's, Impaired Self-Care Skills Discharge Recommendations Plan/Recommendations: Continue POC Treatment Plan/Plan of Care Treatment,Training & Education: Yes Patient would benefit from OT for education, treatment and training to promote independence in ADL's, mobility, safety and/or upper extremity function for ADL's. Plan of Care: ADL Retraining, Functional Mobility, Group Exercise/Act as Ind, UE Funct Exercise/Act Treatment Duration: Oct 25, 2019 Frequency: At least 5 of 7 days/Wk (IRF) Estimated Hrs Per Day: 1.5 hours per day Agreement: Yes Rehab Potential: Fair Time/GCodes Start Time: 09:00 Stop Time: 10:00 Total Time Billed (hr/min): 60 Billed Treatment Time 1, ADL x 3 (45 minutes), EX (15 minutes) HEATHER ZARAGOZA OT Oct 06, 2019 11:13
--- NOTE | 2019-10-06 11:58 | Physical Therapy Daily Note ---
PT Daily Note-Current Subjective Pt in bed upon arrival and agrees to tx. Mental Status Patient Orientation: Person, Place, Time, Situation Transfers SCALE: Activities may be completed with or without assistive devices. 0-Mvcjfhmzed-ylrjalb completes the activity by him/herself with no assistance from a helper. 5-Set-up or Clean-up Assistance-helper sets up or cleans up; patient completes activity. [place] assists only prior to or following the activity. 4-Supervision or Touching Assistance-helper provides verbal cues and/or kuldip kamla/steadying and/or contact guard assistance as patient completes activity. Assistance may be provided throughout the activity or intermittently. 3-Partial/Moderate Assistance-helper does LESS THAN HALF the effort. [place] lifts, holds or supports trunk or limbs, but provides less than half the effort. 2-Substantial/Maximal Assistance-helper does MORE THAN HALF the effort. [place] lifts or holds trunk or limbs and provides more than half the effort. 0-Odibapbse-ppctaj does ALL the effort. Patient does none of the effort to complete the activity. Or, the assistance of 2 or more helpers is required for the patient to complete the activity. If activity was not attempted, code reason: 7-Patient Refused. 9-Not Applicable-not attempted and the patient did not perform the activity before the current illness, exacerbation or injury. 10-Not Attempted due to Environmental Limitations-(lack of equipment, weather restraints, etc.). 88-Not Attempted due to Medical Conditions or Safety Concerns. Roll Left & Right (QC): 5 Sit to Lying (QC): 5 Lying to Sitting/Side of Bed(Q: 5 Sit to Stand (QC): 5 Toilet Transfer (QC): 5 Car Transfer (QC): 5 Weight Bearing Full Weight Bearing Full Weight Bearing Gait Training Does the Patient Walk?: Yes Distance: 150 Walk 10 feet (QC): 5 Walk 50 ft with 2 Turns(QC): 5 Walk 150 ft (QC): 5 Gait Persons Needed: 1 Gait Assistive Device: FWW Exercises Supine Ex: Bridging, Quad Set, Short Arc Quads Supine Reps: 12 Seated Therapy Exercises: Sit to stand Seated Reps: 12 Treatments Pt performed bed exercises and bed mobility. Pt amb to gym and works on sit to stand with correct sequencing. Pt amb to car and performs car transfer prior to returning back into room. Pt uses restroom. Pt returns to recliner and was left with all needs met, call light in hand. Assessment Current Status: Good Progress Pt requires frequent rest breaks and easily fatigues. Pt requires VC on sequencing for sit to stand and car transfers. PT Short Term Goals Short Term Goals Time Frame: Oct 11, 2019 Roll Left & Right: 6 Sit to lyin Lying to sitting on side of be: 4 Sit to stand: 4 Chair/tdh-dc-fjjwt transfer: 4 Walk 10 feet: 4 Walk 50 feet with two turns: 4 Walk 150 feet: 4 PT [facility] Goals [place] Man Goals PT [place] Pin Man Goals Time Frame: Oct 25, 2019 Roll Left & Right (QC): 6 Sit to Lying (QC): 6 Lying-Sitting on Side/Bed(QC): 6 Sit to Stand (QC): 6 Chair/Sss-yl-Bthtk Xfer(QC): 6 Toilet Transfer (QC): 6 Car Transfer (QC): 6 Does the Patient Walk: Yes Walk 10 feet (QC): 6 Walk 50ft with 2 Turns (QC): 6 Walk 150 ft (QC): 6 Walking 10ft on Uneven Surface: 6 1 Step (curb) (QC): 4 4 Steps (QC): 4 12 Steps (QC): 88 Picking up an Object (QC): 4 Does the Pt use WC or Scooter?: No Wheel 50 feet with 2 turns (QC: 9 Wheel 150 feet: 9 PT Plan Problem List Problem List: Activity Tolerance, Functional Strength, Safety, Gait Treatment/Plan Treatment Plan: Continue Plan of Care Treatment Plan: Bed Mobility, Education, Functional Activity [place], Functional Strength, Group Therapy, Gait, Safety, Therapeutic Exercise, Transfers Treatment Duration: Oct 25, 2019 Frequency: At least 5 of 7 days/Wk (IRF) Estimated Hrs Per Day: 1.5 hours per day Patient and/or Family Agrees t: Yes Safety Risks/Education Patient Education: Gait Training, Correct Positioning, Safety Issues Teaching Recipient: Patient Teaching Methods: Discussion Response to Teaching: Verbalize Understanding Time/GCodes Time In: 1115 Time Out: 1145 Total Billed Treatment Time: 30 Total Billed Treatment 1, GT (15m), Ex (15m) CEDRIC DODD METAL COATER OPERATOR Oct 06, 2019 11:58
--- NOTE | 2019-10-06 13:51 | Occupational Ther Daily Note ---
OT Current Status-Daily Note Subjective Pt. in reclining chair. Pt. reported that she is done with lunch and ready for therapy. No c/o pain. Mental Status/Objective Patient Orientation: Person, Place, Time, Situation ADL-Treatment Therapy Code Descriptions/Definitions Functional [place] Measure: 0=Not Assessed/NA 4=Minimal Assistance 1=Total Assistance 5=Supervision or Setup 2=Maximal Assistance 6=Modified [place] 3=Moderate Assistance 7=Complete IndependenceSCALE: Activities may be completed with or without assistive devices. 1-Bytuhviuev-nycirwh completes the activity by him/herself with no assistance from a helper. 5-Set-up or Clean-up Assistance-helper sets up or cleans up; patient completes activity. [place] assists only prior to or following the activity. 4-Supervision or Touching Assistance-helper provides verbal cues and/or touching/steadying and/or contact guard assistance as patient completes activity. Assistance may be provided throughout the activity or intermittently. 3-Partial/Moderate Assistance-helper does LESS THAN HALF the effort. [place] lifts, holds or supports trunk or limbs, but provides less than half the effort. 2-Substantial/Maximal Assistance-helper does MORE THAN HALF the effort. [place] lifts or holds trunk or limbs and provides more than half the effort. 4-Unuswgmbb-mvcpit does ALL the effort. Patient does none of the effort to complete the activity. Or, the assistance of 2 or more helpers is required for the patient to complete the activity. If activity was not attempted, code reason: 7-Patient Refused. 9-Not Applicable-not attempted and the patient did not perform the activity before the current illness, exacerbation or injury. 10-Not Attempted due to Environmental Limitations-(lack of equipment, weather restraints, etc.). 88-Not Attempted due to Medical Conditions or Safety Concerns. Toileting Hygiene (QC): 6 Toilet Transfer (QC): 4 Pt. ready for therapy. Pt. ambulated to therapy gym with CGA, 4 ww, and extra time. Once in gym, pt. participated in BUE exercises in all planes using yellow theraband and yellow sponge. Pt. educated on importance of BUE strength. Pt. verbalizes understanding and demonstrates the exercises with minimal cueing to correct position of theraband. Pt. ambulated back to room with 4ww, CGA, and extra time. Pt. requested to use restroom prior to returning to chair. Pt. ambulated into bathroom and backed into BSC over toilet with CGA for proper alignment with toilet. Once seated, pt. independent in toilet hygiene. Using 4ww and CGA, pt washed hands at sink and ambulated back to the reclining chair. Call light and phone within reach. All needs met. Education OT Patient Education: Correct positioning, Exercise program, Modified ADL techniques, Progress toward Goal/Update tx plan, Purpose of tx/functional activities, Rehab process, Safety issues Teaching Recipient: Patient Teaching Methods: Demonstration, Discussion Response to Teaching: Verbalize Understanding, Return Demonstration, Reinforcement Needed (For proper use of theraband with new exercises) OT Short Term Goals Short Term Goals Time Frame: Oct 11, 2019 Toileting hygiene: 4 Lower body dressin OT Snf Goals Vision Teacher Goals Time Frame: Oct 25, 2019 Eating (QC): 6 Oral Hygiene (QC): 6 Toileting Hygiene (QC): 6 Shower/Bathe Self (QC): 5 Upper Body Dressing (QC): 6 Lower Body Dressing (QC): 6 On/Off Footwear (QC): 5 Additional Goals: 1-Demonstrate ADL Tasks, 2-Verbalize Understanding, 3- ImproveStrength/[place] 1=Demonstrate adherence to instructed precautions during ADL tasks. 2=Patient will verbalize/demonstrate understanding of assistive devices/modifications for ADL. 3=Patient will improve strength/tolerance for activity to enable patient to perform ADL's. OT Education/Plan Problem List/Assessment Assessment: Decreased Activ Tolerance, Decreased UE Strength, Impaired Funct Balance, Impaired I ADL's, Impaired Self-Care Skills Discharge Recommendations Plan/Recommendations: Continue POC Treatment Plan/Plan of Care Treatment,Training & Education: Yes Patient would benefit from OT for education, treatment and training to promote independence in ADL's, mobility, safety and/or upper extremity function for ADL's. Plan of Care: ADL Retraining, Functional Mobility, Group Exercise/Act as Ind, UE Funct Exercise/Act Treatment Duration: Oct 25, 2019 Frequency: At least 5 of 7 days/Wk (IRF) Estimated Hrs Per Day: 1.5 hours per day Agreement: Yes Rehab Potential: Fair Time/GCodes Start Time: 13:03 Stop Time: 13:33 Total Time Billed (hr/min): 30 Billed Treatment Time 1, ADL (15 minutes), EX (15 minutes) HEATHER ZARAGOZA OT Oct 06, 2019 13:51
--- NOTE | 2019-10-06 14:16 | Cardiology Progress Note ---
Cardiology SOAP Progress Note Subjective: No cardiac complaints. Objective: I&O/Vital Signs 10/06/19 05:27 Temp 36.4 Pulse 70 Resp 20 B/P (MAP) 169/75 (106) Pulse Ox 94 O2 Delivery Room Air 10/06/19 00:00 Intake Total 820 ml Balance 820 ml Weight (Pounds): 188 Weight (Ounces): 1.6 Weight (Calculated Kilograms): 85.926615 Constitutional: AAO x 3, PERRL, well-developed, well-nourished Respiratory: chest is bilaterally symmetric, lungs clear to auscultation Cardiovascular: regular rate-rhythm, S1 and S2; No diastolic murmur, No systolic murmur Gastrointestional: soft, audible bowel sounds Extremities: normal range of motion, non-tender, normal inspection, no lower extremity edema bilateral Neurologic/Psychiatric: no motor/sensory deficits, alert, normal mood/affect, oriented x 3 Skin: normal color, warm/dry A/P: Assessment/Dx: Nausea, diverticulitis, Shortness of breath, significantly resolved. Acute on chronic diastolic congestive heart failure, Borderline positive troponin, negative nuclear stress test. Hypertensive heart disease Plan: Nausea, diverticulitis, defer to the primary team. Shortness of breath, echocardiogram shows moderate LVH with moderate diastolic dysfunction. Normal LV function. Moderate tricuspid regurgitation. Acute on chronic mild diastolic congestive heart failure, I will hold off on giving Lasix for now. Shortness of breath is likely multifactorial. resolved. Borderline positive troponin, nuclear stress test done 10/03/2019 which showed no evidence of ischemia or infarction. Likely secondary to severe hypertension. Hypertensive heart disease, systolic blood pressure 169 today. Already on amlodipine 10 mg, lisinopril 40 mg. Metoprolol succinate 25 mg twice a day. I will DC metoprolol and start carvedilol 12.5 mg twice a day. Thank you for your consultation. Please call me if you have any questions. Kalpana Zamudio MD, FACP, FACC, FSCAI, FHRS, CCDS Interventional Cardiology Cardiac Electrophysiology Vascular Medicine and Endovascular Interventions Bethanie ZAMUDIO MD Oct 06, 2019 14:16
[2019-10-06 16:04] VITALS: BP 119/54
[2019-10-06] MEDS: METOCLOPRAMIDE 5 MG (REGLAN) TAB PO SCH ×2 (17:05→20:44)
[2019-10-06] MEDS: PANTOPRAZOLE 40 MG (PROTONIX) TAB PO SCH (18:07)
[2019-10-06] MEDS: LACTULOSE SYRUP 10GM/15ML (ENULOSE) 30ML UDC PO PRN (18:08)
[2019-10-06] MEDS: ALPRAZolam 0.25 MG (XANAX) TAB PO PRN (20:44)
[2019-10-06] MEDS: CARVEDILOL 12.5 MG (COREG) TABLET PO SCH (20:47)
[2019-10-07 05:00] VITALS: BP 105/52
[2019-10-07] MEDS: METOCLOPRAMIDE 5 MG (REGLAN) TAB PO SCH ×4 (06:18→20:33)
[2019-10-07] MEDS: lisINopril 40 MG (PRINIVIL) TABLET PO SCH (08:40)
[2019-10-07] MEDS: SENNA W/DOCUSATE (SENOKOT S) TABLET PO SCH ×2 (08:40→19:31)
[2019-10-07] MEDS: ASPIRIN E.C. 81 MG (ECOTRIN) TAB PO SCH (08:40)
[2019-10-07] MEDS: amLODIPine 5 MG (NORVASC) TAB PO SCH (08:40)
[2019-10-07] MEDS: CARVEDILOL 12.5 MG (COREG) TABLET PO SCH ×2 (08:40→20:33)
[2019-10-07] MEDS: DOCUSATE SODIUM 100 MG (COLACE) CAP PO SCH ×2 (08:40→19:30)
[2019-10-07] MEDS: BRIMONIDINE 0.2% (ALPHAGAN) OPHTH SOLN 5 ML BTL OS SCH ×3 (08:42→20:32)
[2019-10-07] MEDS: TIMOLOL MALEATE 0.5% 5 ML (TIMOPTIC) BTL OS SCH ×2 (08:44→20:33)
[2019-10-07] MEDS: polyethylene glycoL POWDER 17 GM (MIRALAX) PACK PO SCH ×2 (09:31→19:31)
--- NOTE | 2019-10-07 09:53 | Physical Therapy Daily Note ---
PT Daily Note-Current Subjective Pt up in recliner upon arrival. Pt states, "I'm extremely cold this morning." Pt agrees to therapy tx. Pain Numeric Pain Scale: 0-No Pain Location: No Pain Reported Mental Status Patient Orientation: Person, Place, Time, Situation Transfers SCALE: Activities may be completed with or without assistive devices. 6-Vadxcovcei-skgygsl completes the activity by him/herself with no assistance from a helper. 5-Set-up or Clean-up Assistance-helper sets up or cleans up; patient completes activity. [place] assists only prior to or following the activity. 4-Supervision or Touching Assistance-helper provides verbal cues and/or touching/steadying and/or contact guard assistance as patient completes activity. Assistance may be provided throughout the activity or intermittently. 3-Partial/Moderate Assistance-helper does LESS THAN HALF the effort. [place] lifts, holds or supports trunk or limbs, but provides less than half the effort. 2-Substantial/Maximal Assistance-helper does MORE THAN HALF the effort. [place] lifts or holds trunk or limbs and provides more than half the effort. 0-Jercmiukb-swngpa does ALL the effort. Patient does none of the effort to complete the activity. Or, the assistance of 2 or more helpers is required for the patient to complete the activity. If activity was not attempted, code reason: 7-Patient Refused. 9-Not Applicable-not attempted and the patient did not perform the activity before the current illness, exacerbation or injury. 10-Not Attempted due to Environmental Limitations-(lack of equipment, weather restraints, etc.). 88-Not Attempted due to Medical Conditions or Safety Concerns. Sit to Stand (QC): 4 Weight Bearing Full Weight Bearing Full Weight Bearing Exercises Seated Therapy Exercises: Ankle pumps (15 x2), Long arc quads (15 x2) Standing: Hamstring curls (15 x2), Marching (15 x2), Sit to Stand (10 x2) Treatments Pt completes seated ex in recliner. Pt completes standing ex using 4WW for support. Pt sit<>stands w/ supervision. Pt in recliner at end of treatment w/ bed side table and call light w/in reach, warm blanket on and all needs met. Assessment Current Status: Good Progress Pt appears tired this morning, but fully participates in therapy ex. PT Short Term Goals Short Term Goals Time Frame: Oct 11, 2019 Roll Left & Right: 6 Sit to lyin Lying to sitting on side of be: 4 Sit to stand: 4 Chair/jhi-hq-czccc transfer: 4 Walk 10 feet: 4 Walk 50 feet with two turns: 4 Walk 150 feet: 4 PT Medical Lab Assistant Goals Medical Lab Assistant Goals PT Mcc Goals Time Frame: Oct 25, 2019 Roll Left & Right (QC): 6 Sit to Lying (QC): 6 Lying-Sitting on Side/Bed(QC): 6 Sit to Stand (QC): 6 Chair/Hzs-me-Jqnvw Xfer(QC): 6 Toilet Transfer (QC): 6 Car Transfer (QC): 6 Does the Patient Walk: Yes Walk 10 feet (QC): 6 Walk 50ft with 2 Turns (QC): 6 Walk 150 ft (QC): 6 Walking 10ft on Uneven Surface: 6 1 Step (curb) (QC): 4 4 Steps (QC): 4 12 Steps (QC): 88 Picking up an Object (QC): 4 Does the Pt use WC or Scooter?: No Wheel 50 feet with 2 turns (QC: 9 Wheel 150 feet: 9 PT Plan Problem List Problem List: Functional Strength, Safety, Transfer Treatment/Plan Treatment Plan: Continue Plan of Care Treatment Plan: Bed Mobility, Education, Functional Activity [place], Functional Strength, Group Therapy, Gait, Safety, Therapeutic Exercise, Transfers Treatment Duration: Oct 25, 2019 Frequency: At least 5 of 7 days/Wk (IRF) Estimated Hrs Per Day: 1.5 hours per day Patient and/or Family Agrees t: Yes Safety Risks/Education Patient Education: Safety Issues Teaching Recipient: Patient Teaching Methods: Discussion Response to Teaching: Verbalize Understanding Time/GCodes Time In: 0837 Time Out: 08 Total Billed Treatment Time: 15 Total Billed Treatment 1, Ex (15m) SRUTHI PETERS MOLDING MACHINE OPERATOR HELPER Oct 07, 2019 09:53
--- NOTE | 2019-10-07 10:44 | PM&R Progress Note ---
Subjective HPI/CC On Admission Date Seen by Provider: Oct 07, 2019 Time Seen by Provider: 06:45 Subjective/Events-last exam Pt doing well and improving each day Waiting on bfast and she is already in the recliner No pain is reported Bowels have now moved this morning after multiple laxatives yesterday and for the past 2 days BP improved Reglan has improved nausea and will remain at 5mg for now and increase to 10mg if needed Urinary incontinence noted last night and unsure if this is a new issue or chronic Overall feels really good Conferred with RN Checked meds and labs Reviewed therapy notes Review of Systems General: Fatigue, Malaise Neurological: Weakness, Incoordination Objective Exam Vital Signs Vital Signs Date Time Temp Pulse Resp B/P (MAP) Pulse Ox O2 Delivery O2 Flow Rate FiO2 10/07/19 09:15 Room Air 10/07/19 05:00 36.2 69 20 105/52 (69) 92 Capillary Refill : Less Than 3 Seconds General Appearance: No Apparent Distress, WD/WN, Anxious, Chronically ill, Obese HEENT: PERRL/EOMI, Normal ENT Inspection, Pharynx Normal Neck: Full Range of Motion, Normal Inspection, Non Tender, Supple, Carotid Bru it Respiratory: Chest Non Tender, Lungs Clear, Normal Breath Sounds, No Accessory Muscle Use, No Respiratory Distress Cardiovascular: Regular Rate, Rhythm, No Edema, No Gallop, No JVD, No Murmur, Normal Peripheral Pulses Gastrointestinal: Normal Bowel Sounds, No Organomegaly, No Pulsatile Mass, Non Tender, Soft Back: Normal Inspection, No CVA Tenderness, No Vertebral Tenderness Extremity: Normal Capillary Refill, Normal Inspection, Normal Range of Motion, Non Tender, No Calf Tenderness, No Pedal Edema Neurologic/Psychiatric: Alert, Oriented x3, No Motor/Sensory Deficits, Normal Mood/Affect, ems coordinator II-XII Norm as Tested, Abnormal Gait, Motor Weakness (generalized weakness all extremities) Skin: Normal Color, Warm/Dry Lymphatic: No Adenopathy Results/Procedures Lab Patient resulted labs reviewed. FIM Transfers Therapy Code Descriptions/Definitions Functional [place] Measure: 0=Not Assessed/NA 4=Minimal Assistance 1=Total Assistance 5=Supervision or Setup 2=Maximal Assistance 6=Modified [place] 3=Moderate Assistance 7=Complete IndependenceSCALE: Activities may be completed with or without assistive devices. 0-Xfphmtknpe-dkkkfdr completes the activity by him/herself with no assistance from a helper. 5-Set-up or Clean-up Assistance-helper sets up or cleans up; patient completes activity. [place] assists only prior to or following the activity. 4-Supervision or Touching Assistance-helper provides verbal cues and/or touching/steadying and/or contact guard assistance as patient completes activity. Assistance may be provided throughout the activity or intermittently. 3-Partial/Moderate Assistance-helper does LESS THAN HALF the effort. [place] lifts, holds or supports trunk or limbs, but provides less than half the effort. 2-Substantial/Maximal Assistance-helper does MORE THAN HALF the effort. [place] l ifts or holds trunk or limbs and provides more than half the effort. 1-Bdtkjsszw-fkqoiy does ALL the effort. Patient does none of the effort to complete the activity. Or, the assistance of 2 or more helpers is required for the patient to complete the activity. If activity was not attempted, code reason: 7-Patient Refused. 9-Not Applicable-not attempted and the patient did not perform the activity before the current illness, exacerbation or injury. 10-Not Attempted due to Environmental Limitations-(lack of equipment, weather restraints, etc.). 88-Not Attempted due to Medical Conditions or Safety Concerns. Roll Left to Right (QC): 5 Sit to Lying (QC): 5 Sit to Stand (QC): 4 Chair/Kgv-gm-Jluld Xfer(QC): 4 Car Transfer (QC): 5 Gait Training Does the Patient Walk?: Yes Distance: 150 Walk 10 feet (QC): 5 Walk 50 ft with 2 Turns(QC): 5 Walk 150 ft (QC): 5 Walking 10ft/uneven surface-QC: 3 Gait Persons Needed: 1 Gait Assistive Device: FWW Wheelchair Training Does the Pt Use a Wheelchair?: No Wheel 50 ft with 2 turns (QC): 9 Wheel 150 ft (QC): 9 Stair Training 1 Step (curb) (QC): 88 4 Steps (QC): 88 12 Steps (QC): 88 Balance Picking up an Object (QC): 88 (NT due to poor strength) ADL-Treatment Eating (QC): 6 (Per pt report, she had no difficulty with eating lunch) Oral Hygiene (QC): 5 Shower/Bathe Self (QC): 4 Upper Body Dressing (QC): 4 Lower Body Dressing (QC): 3 On/Off Footwear (QC): 3 Toileting Hygiene (QC): 6 Toilet Transfer (QC): 4 Assessment/Plan Assessment and Plan Assess & Plan/Chief Complaint Assessment: Debility Severe weakness Near syncope HTN GERD Glaucoma Gastroparesis Edema legs Constipation resolved 10/07/19 Plan: IRF protocol Home meds Monitor BP PRINCESS wraps to legs BM treatment Increase ADL's (1) Debility (2) Weakness generalized Status: Acute (3) Transient hypotension Status: Acute (4) Near syncope Status: Acute (5) Microcytic anemia Status: Acute (6) HTN (hypertension) Status: Acute (7) Dyspnea on exertion Status: Acute MARKO ANDERS DO Oct 07, 2019 10:44
--- NOTE | 2019-10-07 14:29 | Cardiology Progress Note ---
Cardiology SOAP Progress Note Subjective: No cardiac complaints. Objective: I&O/Vital Signs 10/07/19 10/07/19 05:00 09:15 Temp 36.2 Pulse 69 Resp 20 B/P (MAP) 105/52 (69) Pulse Ox 92 O2 Delivery Room Air Room Air 10/07/19 00:00 Intake Total 700 ml Balance 700 ml Weight (Pounds): 188 Weight (Ounces): 1.6 Weight (Calculated Kilograms): 85.610810 Constitutional: AAO x 3, PERRL, well-developed, well-nourished Respiratory: chest is bilaterally symmetric, lungs clear to auscultation Cardiovascular: regular rate-rhythm, S1 and S2; No diastolic murmur, No systolic murmur Gastrointestional: soft, audible bowel sounds Extremities: normal range of motion, non-tender, normal inspection, no lower extremity edema bilateral Neurologic/Psychiatric: no motor/sensory deficits, alert, normal mood/affect, oriented x 3 Skin: normal color, warm/dry A/P: Assessment/Dx: Nausea, diverticulitis, Shortness of breath, significantly resolved. Acute on chronic diastolic congestive heart failure, Borderline positive troponin, negative nuclear stress test. Hypertensive heart disease Plan: Nausea, diverticulitis, defer to the primary team. Shortness of breath, echocardiogram shows moderate LVH with moderate diastolic dysfunction. Normal LV function. Moderate tricuspid regurgitation. Acute on chronic mild diastolic congestive heart failure, I will hold off on giving Lasix for now. Shortness of breath is likely multifactorial. resolved. Borderline positive troponin, nuclear stress test done 10/03/2019 which showed no evidence of ischemia or infarction. Likely secondary to severe hypertension. Hypertensive heart disease, blood pressure significantly better today. Already on amlodipine 10 mg, lisinopril 40 mg. continue carvedilol 12.5 mg twice a day. Thank you for your consultation. Please call me if you have any questions. Kalpana Zamudio MD, FACP, FACC, FSCAI, FHRS, CCDS Interventional Cardiology Cardiac Electrophysiology Vascular Medicine and Endovascular Interventions Bethanie ZAMUDIO MD Oct 07, 2019 14:29
[2019-10-07 16:00] VITALS: BP_SYST 120; BP_SYST 179; BP_DIAS 65; BP_DIAS 76
[2019-10-07] MEDS: PANTOPRAZOLE 40 MG (PROTONIX) TAB PO SCH (18:46)
[2019-10-07] MEDS: ALPRAZolam 0.25 MG (XANAX) TAB PO PRN (20:33)
[2019-10-08 05:11] VITALS: BP 137/59
[2019-10-08] MEDS: METOCLOPRAMIDE 5 MG (REGLAN) TAB PO SCH ×3 (06:52→21:04)
[2019-10-08] MEDS: CARVEDILOL 12.5 MG (COREG) TABLET PO SCH ×2 (08:41→16:13)
[2019-10-08] MEDS: ASPIRIN E.C. 81 MG (ECOTRIN) TAB PO SCH (08:41)
[2019-10-08] MEDS: lisINopril 40 MG (PRINIVIL) TABLET PO SCH (08:41)
[2019-10-08] MEDS: amLODIPine 5 MG (NORVASC) TAB PO SCH (08:41)
[2019-10-08] MEDS: polyethylene glycoL POWDER 17 GM (MIRALAX) PACK PO SCH ×2 (08:41→19:33)
[2019-10-08] MEDS: DOCUSATE SODIUM 100 MG (COLACE) CAP PO SCH ×2 (08:42→19:32)
[2019-10-08] MEDS: SENNA W/DOCUSATE (SENOKOT S) TABLET PO SCH ×2 (08:42→19:33)
[2019-10-08] MEDS: BRIMONIDINE 0.2% (ALPHAGAN) OPHTH SOLN 5 ML BTL OS SCH ×3 (08:43→21:03)
[2019-10-08] MEDS: TIMOLOL MALEATE 0.5% 5 ML (TIMOPTIC) BTL OS SCH ×2 (08:43→21:03)
--- NOTE | 2019-10-08 11:49 | PM&R Progress Note ---
Subjective HPI/CC On Admission Date Seen by Provider: Oct 08, 2019 Time Seen by Provider: 16:00 Subjective/Events-last exam Pt doing well and improving each day just still very weak she reports Reglan working well but she wants it BID only so I changed that No pain is reported Bowels have now moved after aggressive regimen BP improved and placed parameters for nurses in case it is low like this afternoon Patient wondering if the Coreg causes night time urination so will alter that time Urinary incontinence disturbing for patient Overall feels really good Conferred with RN Checked meds and labs Reviewed therapy notes Review of Systems General: Fatigue, Malaise Genitourinary: Frequency, Incontinence Neurological: Weakness Objective Exam Vital Signs Vital Signs Date Time Temp Pulse Resp B/P (MAP) Pulse Ox O2 Delivery O2 Flow Rate FiO2 10/09/19 05:01 36.6 75 20 148/68 (94) 94 Room Air 10/07/19 16:00 Capillary Refill : Less Than 3 Seconds General Appearance: No Apparent Distress, WD/WN, Anxious, Chronically ill, Obese HEENT: PERRL/EOMI, Normal ENT Inspection, Pharynx Normal Neck: Full Range of Motion, Normal Inspection, Non Tender, Supple, Carotid Bruit Respiratory: Chest Non Tender, Lungs Clear, Normal Breath Sounds, No Accessory Muscle Use, No Respiratory Distress Cardiovascular: Regular Rate, Rhythm, No Edema, No Gallop, No JVD, No Murmur, Normal Peripheral Pulses Gastrointestinal: Normal Bowel Sounds, No Organomegaly, No Pulsatile Mass, Non Tender, Soft Back: Normal Inspection, No CVA Tenderness, No Vertebral Tenderness Extremity: Normal Capillary Refill, Normal Inspection, Normal Range of Motion, Non Tender, No Calf Tenderness, No Pedal Edema Neurologic/Psychiatric: Alert, Oriented x3, No Motor/Sensory Deficits, Normal Mood/Affect, diagnostic cardiac sonographer II-XII Norm as Tested, Abnormal Gait, Motor Weakness (generalized weakness all extremities) Skin: Normal Color, Warm/Dry Lymphatic: No Adenopathy Results/Procedures Lab Laboratory Tests 10/09/19 05:25 Patient resulted labs reviewed. FIM Transfers Therapy Code Descriptions/Definitions Functional [place] Measure: 0=Not Assessed/NA 4=Minimal Assistance 1=Total Assistance 5=Supervision or Setup 2=Maximal Assistance 6=Modified [place] 3=Moderate Assistance 7=Complete IndependenceSCALE: Activities may be completed with or without assistive devices. 7-Mrzyhliztr-icsavap completes the activity by him/herself with no assistance from a helper. 5-Set-up or Clean-up Assistance-helper sets up or cleans up; patient completes activity. [place] assists only prior to or following the activity. 4-Supervision or Touching Assistance-helper provides verbal cues and/or touching/steadying and/or contact guard assistance as patient completes activity. Assistance may be provided throughout the activity or intermittently. 3-Partial/Moderate Assistance-helper does LESS THAN HALF the effort. [place] lifts, holds or supports trunk or limbs, but provides less than half the effort. 2-Substantial/Maximal Assistance-helper does MORE THAN HALF the effort. [place] lifts or holds trunk or limbs and provides more than half the effort. 4-Tletosduq-cdczli does ALL the effort. Patient does none of the effort to complete the activity. Or, the assistance of 2 or more helpers is required for the patient to complete the activity. If activity was not attempted, code reason: 7-Patient Refused. 9-Not Applicable-not attempted and the patient did not perform the activity before the current illness, exacerbation or injury. 10-Not Attempted due to Environmental Limitations-(lack of equipment, weather restraints, etc.). 88-Not Attempted due to Medical Conditions or Safety Concerns. Roll Left to Right (QC): 5 Sit to Lying (QC): 5 Sit to Stand (QC): 4 Chair/Lrh-ba-Leiwh Xfer(QC): 4 Car Transfer (QC): 5 Gait Training Does the Patient Walk?: Yes Distance: 150 Walk 10 feet (QC): 5 Walk 50 ft with 2 Turns(QC): 5 Walk 150 ft (QC): 5 Walking 10ft/uneven surface-QC: 3 Gait Persons Needed: 1 Gait Assistive Device: FWW Wheelchair Training Does the Pt Use a Wheelchair?: No Wheel 50 ft with 2 turns (QC): 9 Wheel 150 ft (QC): 9 Stair Training 1 Step (curb) (QC): 88 4 Steps (QC): 88 12 Steps (QC): 88 Balance Picking up an Object (QC): 88 (NT due to poor strength) ADL-Treatment Eating (QC): 6 (Per pt report, she had no difficulty with eating lunch) Oral Hygiene (QC): 5 Shower/Bathe Self (QC): 4 Upper Body Dressing (QC): 4 Lower Body Dressing (QC): 3 On/Off Footwear (QC): 3 Toileting Hygiene (QC): 6 Toilet Transfer (QC): 4 Assessment/Plan Assessment and Plan Assess & Plan/Chief Complaint Assessment: Debility Severe weakness Near syncope HTN GERD Glaucoma Gastroparesis Edema legs Constipation resolved 10/07/19 Nocturia Plan: IRF protocol Home meds Monitor BP PRINCESS wraps to legs BM treatment change to prn now Increase ADL's Change time of Coreg in case that is causing nocturia (1) Debility (2) Weakness generalized Status: Acute (3) Transient hypotension Status: Acute (4) Near syncope Status: Acute (5) Microcytic anemia Status: Acute (6) HTN (hypertension) Status: Acute (7) Dyspnea on exertion Status: Acute MARKO ANDERS DO Oct 08, 2019 11:49
--- NOTE | 2019-10-08 14:07 | Cardiology Progress Note ---
Cardiology SOAP Progress Note Subjective: No acute cardiac complaints. Objective: I&O/Vital Signs 10/08/19 10/08/19 05:11 09:00 Temp 36.2 Pulse 74 Resp 20 B/P (MAP) 137/59 (85) Pulse Ox 93 O2 Delivery Room Air Room Air 10/08/19 00:00 Intake Total 1400 ml Balance 1400 ml Weight (Pounds): 188 Weight (Ounces): 1.6 Weight (Calculated Kilograms): 85.968046 Constitutional: AAO x 3, PERRL, well-developed, well-nourished Respiratory: chest is bilaterally symmetric, lungs clear to auscultation Cardiovascular: regular rate-rhythm, S1 and S2; No diastolic murmur, No systolic murmur Gastrointestional: soft, audible bowel sounds Extremities: normal range of motion, non-tender, normal inspection, no lower extremity edema bilateral Neurologic/Psychiatric: no motor/sensory deficits, alert, normal mood/affect, oriented x 3 Skin: normal color, warm/dry A/P: Assessment/Dx: Nausea, diverticulitis, Shortness of breath, significantly resolved. Acute on chronic diastolic congestive heart failure, Borderline positive troponin, negative nuclear stress test. Hypertensive heart disease Plan: Nausea, diverticulitis, defer to the primary team. Shortness of breath, echocardiogram shows moderate LVH with moderate diastolic dysfunction. Normal LV function. Moderate tricuspid regurgitation. Acute on chronic mild diastolic congestive heart failure, I will hold off on giving Lasix for now. Shortness of breath is likely multifactorial. resolved. Borderline positive troponin, nuclear stress test done 10/03/2019 which showed no evidence of ischemia or infarction. Likely secondary to severe hypertension. Hypertensive heart disease, blood pressure significantly better today. Already on amlodipine 10 mg, lisinopril 40 mg. continue carvedilol 12.5 mg twice a day. Thank you for your consultation. Please call me if you have any questions. Kalpana Zamudio MD, FACP, FACC, FSCAI, FHRS, CCDS Interventional Cardiology Cardiac Electrophysiology Vascular Medicine and Endovascular Interventions Bethanie ZAMUDIO MD Oct 08, 2019 14:07
--- NOTE | 2019-10-08 16:18 | NUR ---
Notified pt of new order to hold coreg for SBP<120 &/or pulse less than [address] Corona at this time.
[2019-10-08 17:06] VITALS: BP 102/50
[2019-10-08] MEDS: PANTOPRAZOLE 40 MG (PROTONIX) TAB PO SCH (18:19)
[2019-10-08] MEDS: ALPRAZolam 0.25 MG (XANAX) TAB PO PRN (21:01)
[2019-10-09 05:01] VITALS: BP 148/68
[2019-10-09 05:52] LABS: BASOPHILS % (AUTO) 0 % (0-10); EOSINOPHILS # (AUTO) 0.2 10^3/uL (0.0-0.3); EOSINOPHILS % (AUTO) 3 % (0-10); HEMATOCRIT 39 % (35-52); HEMOGLOBIN 13.6 G/DL (11.5-16.0); LYMPHOCYTES # (AUTO) 1.7 X 10^3 (1.0-4.0); LYMPHOCYTES % (AUTO) 25 % (12-44); MEAN CORPUSCULAR HEMOGLOBIN 32 PG (25-34); MEAN CORPUSCULAR HGB CONC 35 G/DL (32-36); MEAN CORPUSCULAR VOLUME 89 FL (80-99); MONOCYTES # (AUTO) 0.9 X 10^3 (0.0-1.0); MONOCYTES % (AUTO) 13 % (0-12); NEUTROPHILS # (AUTO) 4.1 X 10^3 (1.8-7.8); NEUTROPHILS % (AUTO) 59 % (42-75); PLATELET COUNT 190 10^3/uL (130-400); RED CELL DISTRIBUTION WIDTH 13.4 % (10.0-14.5)
[2019-10-09 06:04] LABS: CHLORIDE 104 MMOL/L (98-107); POTASSIUM 3.9 MMOL/L (3.6-5.0); SODIUM 136 MMOL/L (135-145)
[2019-10-09 06:06] LABS: CALCIUM 8.2 MG/DL (8.5-10.1)
[2019-10-09 06:07] LABS: GLUCOSE 96 MG/DL (70-105); TOTAL PROTEIN 5.7 GM/DL (6.4-8.2)
[2019-10-09 06:08] LABS: CARBON DIOXIDE 23 MMOL/L (21-32)
[2019-10-09 06:09] LABS: BILIRUBIN,TOTAL 0.8 MG/DL (0.1-1.0)
[2019-10-09 06:10] LABS: ALKALINE PHOSPHATASE 60 U/L (40-136); CREATININE SERUM 0.69 MG/DL (0.60-1.30); GFR ESTIMATED > 60
[2019-10-09 06:11] LABS: BUN/CREATININE RATIO 13
[2019-10-09 06:13] LABS: ALANINE AMINOTRANSFERASE 10 U/L (0-55)
--- NOTE | 2019-10-09 06:43 | PM&R Progress Note ---
Subjective HPI/CC On Admission Date Seen by Provider: Oct 09, 2019 Time Seen by Provider: 10:00 Subjective/Events-last exam Pt still very weak Had a BM yesterday Under her right breast is very red and angry, will start Nystatin Cream and Powder No pain is reported Nauseated a little bit this morning, she did not take a Reglan last night afraid that it was going to make her BP go to low Overall doing much better today May very well need swing bed at [facility] like she had before if the structured PT here in inpatient rehab is just too much for her Conferred with RN Checked meds and labs Reviewed therapy notes Review of Systems Gastrointestinal: Nausea Genitourinary: Frequency Objective Exam Vital Signs Vital Signs Date Time Temp Pulse Resp B/P (MAP) Pulse Ox O2 Delivery O2 Flow Rate FiO2 10/09/19 18:00 36.5 73 20 115/57 (76) 93 Room Air 10/07/19 16:00 Capillary Refill : Less Than 3 Seconds General Appearance: No Apparent Distress, WD/WN, Anxious, Chronically ill, Obese HEENT: PERRL/EOMI, Normal ENT Inspection, Pharynx Normal Neck: Full Range of Motion, Normal Inspection, Non Tender, Supple, Carotid Bruit Respiratory: Chest Non Tender, Lungs Clear, Normal Breath Sounds, No Accessory Muscle Use, No Respiratory Distress Cardiovascular: Regular Rate, Rhythm, No Edema, No Gallop, No JVD, No Murmur, Normal Peripheral Pulses Gastrointestinal: Normal Bowel Sounds, No Organomegaly, No Pulsatile Mass, Non Tender, Soft Back: Normal Inspection, No CVA Tenderness, No Vertebral Tenderness Extremity: Normal Capillary Refill, Normal Inspection, Normal Range of Motion, Non Tender, No Calf Tenderness, No Pedal Edema Neurologic/Psychiatric: Alert, Oriented x3, No Motor/Sensory Deficits, Normal Mood/Affect, card doffer II-XII Norm as Tested, Abnormal Gait, Motor Weakness (gen eralized weakness all extremities) Skin: Normal Color, Warm/Dry Lymphatic: No Adenopathy Results/Procedures Lab Laboratory Tests 10/09/19 05:25 Patient resulted labs reviewed. FIM Transfers Therapy Code Descriptions/Definitions Functional [place] Measure: 0=Not Assessed/NA 4=Minimal Assistance 1=Total Assistance 5=Supervision or Setup 2=Maximal Assistance 6=Modified [place] 3=Moderate Assistance 7=Complete IndependenceSCALE: Activities may be completed with or without assistive devices. 5-Huznvggsxj-fnjbguf completes the activity by him/herself with no assistance from a helper. 5-Set-up or Clean-up Assistance-helper sets up or cleans up; patient completes activity. [place] assists only prior to or following the activity. 4-Supervision or Touching Assistance-helper provides verbal cues and/or touching/steadying and/or contact guard assistance as patient completes activi ty. Assistance may be provided throughout the activity or intermittently. 3-Partial/Moderate Assistance-helper does LESS THAN HALF the effort. [place] lifts, holds or supports trunk or limbs, but provides less than half the effort. 2-Substantial/Maximal Assistance-helper does MORE THAN HALF the effort. [place] lifts or holds trunk or limbs and provides more than half the effort. 3-Xsbflmkzu-okwgum does ALL the effort. Patient does none of the effort to complete the activity. Or, the assistance of 2 or more helpers is required for the patient to complete the activity. If activity was not attempted, code reason: 7-Patient Refused. 9-Not Applicable-not attempted and the patient did not perform the activity before the current illness, exacerbation or injury. 10-Not Attempted due to Environmental Limitations-(lack of equipment, weather restraints, etc.). 88-Not Attempted due to Medical Conditions or Safety Concerns. Roll Left to Right (QC): 5 Sit to Lying (QC): 5 Sit to Stand (QC): 4 Chair/Szu-av-Nwrxn Xfer(QC): 4 Car Transfer (QC): 5 Gait Training Does the Patient Walk?: Yes Distance: 150 Walk 10 feet (QC): 5 Walk 50 ft with 2 Turns(QC): 5 Walk 150 ft (QC): 5 Walking 10ft/uneven surface-QC: 3 Gait Persons Needed: 1 Gait Assistive Device: FWW Wheelchair Training Does the Pt Use a Wheelchair?: No Wheel 50 ft with 2 turns (QC): 9 Wheel 150 ft (QC): 9 Stair Training 1 Step (curb) (QC): 88 4 Steps (QC): 88 12 Steps (QC): 88 Balance Picking up an Object (QC): 88 (NT due to poor strength) ADL-Treatment Eating (QC): 6 (Per pt report, she had no difficulty with eating lunch) Oral Hygiene (QC): 5 Shower/Bathe Self (QC): 4 Upper Body Dressing (QC): 4 Lower Body Dressing (QC): 3 On/Off Footwear (QC): 3 Toileting Hygiene (QC): 6 Toilet Transfer (QC): 4 Assessment/Plan Assessment and Plan Assess & Plan/Chief Complaint Assessment: Debility Severe weakness Near syncope HTN GERD Glaucoma Gastroparesis Edema legs Constipation resolved 10/07/19 Nocturia Plan: IRF protocol Home meds Monitor BP PRINCESS wraps to legs BM treatment change to prn now Increase ADL's Change time of Coreg in case that is causing nocturia 10/09/19: Check urine sample with an in & out cath Schedule Reglan twice daily Monitor patient progress closely may need swing bed afterwards or to replace the structure therapy program (1) Debility (2) Weakness generalized Status: Acute (3) Transient hypotension Status: Acute (4) Near syncope Status: Acute (5) Microcytic anemia Status: Acute (6) HTN (hypertension) Status: Acute (7) Dyspnea on exertion Status: Acute MARKO ANDERS DO Oct 09, 2019 06:43
[2019-10-09] MEDS: ONDANSETRON 4 MG (ZOFRAN) ORAL DISSOLVE TAB PO PRN ×2 (08:08→16:47)
[2019-10-09 08:30] VITALS: BP 145/66
[2019-10-09] MEDS: lisINopril 40 MG (PRINIVIL) TABLET PO SCH (08:31)
[2019-10-09] MEDS: SENNA W/DOCUSATE (SENOKOT S) TABLET PO SCH ×2 (08:32→21:09)
[2019-10-09] MEDS: METOCLOPRAMIDE 5 MG (REGLAN) TAB PO SCH ×2 (08:32→21:10)
[2019-10-09] MEDS: CARVEDILOL 12.5 MG (COREG) TABLET PO SCH ×2 (08:32→17:58)
[2019-10-09] MEDS: ASPIRIN E.C. 81 MG (ECOTRIN) TAB PO SCH (08:32)
[2019-10-09] MEDS: DOCUSATE SODIUM 100 MG (COLACE) CAP PO SCH ×2 (08:32→21:09)
[2019-10-09] MEDS: amLODIPine 5 MG (NORVASC) TAB PO SCH (08:32)
[2019-10-09] MEDS: BRIMONIDINE 0.2% (ALPHAGAN) OPHTH SOLN 5 ML BTL OS SCH ×3 (08:33→21:12)
[2019-10-09] MEDS: TIMOLOL MALEATE 0.5% 5 ML (TIMOPTIC) BTL OS SCH ×2 (08:33→21:11)
--- NOTE | 2019-10-09 08:59 | Occupational Ther Daily Note ---
OT Current Status-Daily Note Subjective Pt sitting upright in recliner, stating she is feeling nauseous, OT notified nurse who gave pt med. Pt agreed to OT tx. ADL-Treatment Therapy Code Descriptions/Definitions Functional [place] Measure: 0=Not Assessed/NA 4=Minimal Assistance 1=Total Assistance 5=Supervision or Setup 2=Maximal Assistance 6=Modified [place] 3=Moderate Assistance 7=Complete IndependenceSCALE: Activities may be completed with or without assistive devices. 4-Ymcvhziqdc-rlrfsrx completes the activity by him/herself with no assistance from a helper. 5-Set-up or Clean-up Assistance-helper sets up or cleans up; patient completes activity. [place] assists only prior to or following the activity. 4-Supervision or Touching Assistance-helper provides verbal cues and/or touching/steadying and/or contact guard assistance as patient completes activ ity. Assistance may be provided throughout the activity or intermittently. 3-Partial/Moderate Assistance-helper does LESS THAN HALF the effort. [place] lifts, holds or supports trunk or limbs, but provides less than half the effort. 2-Substantial/Maximal Assistance-helper does MORE THAN HALF the effort. [place] lifts or holds trunk or limbs and provides more than half the effort. 9-Vmodqzdya-whdhfu does ALL the effort. Patient does none of the effort to complete the activity. Or, the assistance of 2 or more helpers is required for the patient to complete the activity. If activity was not attempted, code reason: 7-Patient Refused. 9-Not Applicable-not attempted and the patient did not perform the activity before the current illness, exacerbation or injury. 10-Not Attempted due to Environmental Limitations-(lack of equipment, weather restraints, etc.). 88-Not Attempted due to Medical Conditions or Safety Concerns. Eating (QC): 6 (Pt reports being able to cut food and bring food to her mouth this AM. ) Oral Hygiene (QC): 5 (Pt completed standing at sink) Upper Body Dressing (QC): 5 (set up) Lower Body Dressing (QC): 4 (SBA, pt able to doff brief, don brief and pants using AE as needed. ) On/Off Footwear: 3 (Pt able to doff gripper socks using dressing stick. Pt then handed sock aide to don gripper socks, she states "I don't remember how to use this", requiring mod verbal cues for task, and assistance with pulling sock the rest of the way up once onto foot.) Toileting Hygiene (QC): 6 Toilet Transfer (QC): 4 (close SBA on/off toilet) Other Treatment Pt seated in recliner, stated she is nauseous. Nurse notified and brought med to pt. Pt then stated she needed to use the restroom, ambulating into the bathroom using 4WW and SBA. Pt completed toileting, then stood at sink to wash her hands and brush her teeth. Pt returned to recliner where she agreed to changing her clothes. Pt able to change shirt with set up assist, then change pants with SBA in stand at FWW. During dressing, OT noticed redness under pt's left breast, OT notified pt's nurse then placed pillowcase under breast to help with moisture. OT handed pt radiology technologist to don pants, pt able to use AE to don pants/underwear without cues. Pt then handed sock aide and socks, pt reports she does not remember how to use the sock aide, she was able to pull sock onto AE but required cue to pull the sock onto the sockaide all the way to the toes. Pt then tossed sock aide to the floor and attempted to pull sock on, string of sock aide wrapped under pt's foot, OT cued pt about issue but pt continued trying to put sock on, OT then cued pt to take her foot all the way out and try again. Pt able to pull sock on requiring minor adjustments once on foot. Pt then able to don other sock with minor adjustments required. Pt ambulated to therapy area with CGA using 4WW. In order to increase BUE strength and functional endurance, pt completed arm bike, min resistance x15 mins. Pt took rest breaks as needed. Pt then placed/removed 1" pegs from foam pegboard, completing x25 in order to increase fine motor strength. Pt returned to her room using FWW with CGA, trans ferring to recliner. Post OT tx, pt seated in recliner, call light in reach and all needs met, legs elevated. Education OT Patient Education: Correct positioning, Energy conservation, Exercise program, Modified ADL techniques, Progress toward Goal/Update tx plan, Purpose of tx/functional activities, Safety issues, Transfer techniques, Use of adapted equipment Teaching Recipient: Patient Teaching Methods: Discussion Response to Teaching: Verbalize Understanding OT Short Term Goals Short Term Goals Time Frame: Oct 11, 2019 Toileting hygiene: 4 Lower body dressin OT Care Home Goals Care Home Goals Time Frame: Oct 25, 2019 Eating (QC): 6 Oral Hygiene (QC): 6 Toileting Hygiene (QC): 6 Shower/Bathe Self (QC): 5 Upper Body Dressing (QC): 6 Lower Body Dressing (QC): 6 On/Off Footwear (QC): 5 Additional Goals: 1-Demonstrate ADL Tasks, 2-Verbalize Understanding, 3- ImproveStrength/[place] 1=Demonstrate adherence to instructed precautions during ADL tasks. 2=Patient will verbalize/demonstrate understanding of assistive devices/modifications for ADL. 3=Patient will improve strength/tolerance for activity to enable patient to perform ADL's. OT Education/Plan Problem List/Assessment Assessment: Decreased Activ Tolerance, Decreased UE Strength, Impaired I ADL's, Impaired Self-Care Skills Discharge Recommendations Plan/Recommendations: Continue POC Treatment Plan/Plan of Care Patient would benefit from OT for education, treatment and training to promote independence in ADL's, mobility, safety and/or upper extremity function for ADL's. Plan of Care: ADL Retraining, Functional Mobility, Group Exercise/Act as Ind, UE Funct Exercise/Act Treatment Duration: Oct 25, 2019 Frequency: At least 5 of 7 days/Wk (IRF) Estimated Hrs Per Day: 1.5 hours per day Agreement: Yes Rehab Potential: Fair Time/GCodes Start Time: 08:00 Stop Time: 09:30 Total Time Billed (hr/min): 90 Billed Treatment Time 1, ADL 4 (55'), EX (20'), FA (15') BOOM JUNIOR OT Oct 09, 2019 08:59
[2019-10-09] MEDS: polyethylene glycoL POWDER 17 GM (MIRALAX) PACK PO SCH ×2 (09:00→21:10)
--- NOTE | 2019-10-09 11:57 | Physical Therapy Daily Note ---
PT Daily Note-Current Subjective Pt in recliner upon arrival and agrees to tx. Pt has no c/o pain or discomfort Mental Status Patient Orientation: Person, Place, Time, Situation Transfers SCALE: Activities may be completed with or without assistive devices. 7-Aarffhbtjw-atjamly completes the activity by him/herself with no assistance from a helper. 5-Set-up or Clean-up Assistance-helper sets up or cleans up; patient completes activity. [place] assists only prior to or following the activity. 4-Supervision or Touching Assistance-helper provides verbal cues and/or touching/steadying and/or contact guard assistance as patient completes activity. Assistance may be provided throughout the activity or intermittently. 3-Partial/Moderate Assistance-helper does LESS THAN HALF the effort. [place] lifts, holds or supports trunk or limbs, but provides less than half the effort. 2-Substantial/Maximal Assistance-helper does MORE THAN HALF the effort. [place] lifts or holds trunk or limbs and provides more than half the effort. 3-Hmqnmgryt-vwyltf does ALL the effort. Patient does none of the effort to complete the activity. Or, the assistance of 2 or more helpers is required for the patient to complete the activity. If activity was not attempted, code reason: 7-Patient Refused. 9-Not Applicable-not attempted and the patient did not perform the activity before the current illness, exacerbation or injury. 10-Not Attempted due to Environmental Limitations-(lack of equipment, weather restraints, etc.). 88-Not Attempted due to Medical Conditions or Safety Concerns. Sit to Stand (QC): 5 Toilet Transfer (QC): 5 Weight Bearing Full Weight Bearing Full Weight Bearing Gait Training Does the Patient Walk?: Yes Distance: 200 Walk 10 feet (QC): 5 Walk 50 ft with 2 Turns(QC): 5 Walk 150 ft (QC): 5 Gait Persons Needed: 1 Gait Assistive Device: Walker 4 Wheeled Pt has wide NAIN, shuffling gait with a kyphotic posture. Pt tends to push 4WW far in front and needs VC to keep 4WW close. Exercises Seated Therapy Exercises: Glut set Seated Reps: 15 Standing: Hip Abduction, Hamstring curls, Heel/toe raises, Marching Standing Reps: 15 NuStep Minutes: 15 NuStep Workload: 5 Treatments Pt uses restroom SBA prior to amb. Pt amb around unit SBA followed by standing exercises at // bars in gym. Pt performs NuStep for 15 mins at WL 5. Pt amb in hallway practicing forward, backward, side to side, and fig 8 pattern. Pt stated these were much more challenging than walking. Pt performed 360 deg turning for balance activity with no LOB. Pt returned to recliner and was left with all needs met, call light in hand. Assessment Current Status: Good Progress Pt requires rest breaks after each standing exercise. Pt is able to amb farther distances w/o any rest breaks and no LOB with amb challenges. Pt requires VC to keep 4WW close with amb. PT Short Term Goals Short Term Goals Time Frame: Oct 11, 2019 Roll Left & Right: 6 Sit to lyin Lying to sitting on side of be: 4 Sit to stand: 4 Chair/jlo-aj-cvzpx transfer: 4 Walk 10 feet: 4 Walk 50 feet with two turns: 4 Walk 150 feet: 4 PT Custodial Goals Geologic Technician Goals PT Custodial Goals Time Frame: Oct 25, 2019 Roll Left & Right (QC): 6 Sit to Lying (QC): 6 Lying-Sitting on Side/Bed(QC): 6 Sit to Stand (QC): 6 Chair/Vpo-gq-Niwnm Xfer(QC): 6 Toilet Transfer (QC): 6 Car Transfer (QC): 6 Does the Patient Walk: Yes Walk 10 feet (QC): 6 Walk 50ft with 2 Turns (QC): 6 Walk 150 ft (QC): 6 Walking 10ft on Uneven Surface: 6 1 Step (curb) (QC): 4 4 Steps (QC): 4 12 Steps (QC): 88 Picking up an Object (QC): 4 Does the Pt use WC or Scooter?: No Wheel 50 feet with 2 turns (QC: 9 Wheel 150 feet: 9 PT Plan Problem List Problem List: Activity Tolerance, Functional Strength, Safety Treatment/Plan Treatment Plan: Continue Plan of Care Treatment Plan: Bed Mobility, Education, Functional Activity [place], Functional Strength, Group Therapy, Gait, Safety, Therapeutic Exercise, Transfers Treatment Duration: Oct 25, 2019 Frequency: At least 5 of 7 days/Wk (IRF) Estimated Hrs Per Day: 1.5 hours per day Patient and/or Family Agrees t: Yes Safety Risks/Education Patient Education: Gait Training, Correct Positioning, Safety Issues Teaching Recipient: Patient Teaching Methods: Demonstration, Discussion Response to Teaching: Verbalize Understanding, Return Demonstration Time/GCodes Time In: 1100 Time Out: 1200 Total Billed Treatment Time: 60 Total Billed Treatment 1, Ex x2 (30m), FA x2 (30m) CEDRIC DODD REMOTELY OPERATED VEHICLE Oct 09, 2019 11:57
--- NOTE | 2019-10-09 13:17 | Physical Therapy Daily Note ---
PT Daily Note-Current Subjective Pt up in recliner and agrees to Rx. Pt. states she will be getting straight cath after PT and will likely just go to bed after. No c/o pain. States she utilizes a ramp at home. Pain Location: No Pain Reported Mental Status Patient Orientation: Normal For Age Attachments: Other-See Comments (dread wraps LEs bilat for edema) Transfers SCALE: Activities may be completed with or without assistive devices. 7-Clspezrrqi-wkvynan completes the activity by him/herself with no assistance from a helper. 5-Set-up or Clean-up Assistance-helper sets up or cleans up; patient completes activity. [place] assists only prior to or following the activity. 4-Supervision or Touching Assistance-helper provides verbal cues and/or touching/steadying and/or contact guard assistance as patient completes activity. Assistance may be provided throughout the activity or intermittently. 3-Partial/Moderate Assistance-helper does LESS THAN HALF the effort. [place] lifts, holds or supports trunk or limbs, but provides less than half the effort. 2-Substantial/Maximal Assistance-helper does MORE THAN HALF the effort. [place] lifts or holds trunk or limbs and provides more than half the effort. 8-Dxriimwqx-mvlxhm does ALL the effort. Patient does none of the effort to complete the activity. Or, the assistance of 2 or more helpers is required for the patient to complete the activity. If activity was not attempted, code reason: 7-Patient Refused. 9-Not Applicable-not attempted and the patient did not perform the activity before the current illness, exacerbation or injury. 10-Not Attempted due to Environmental Limitations-(lack of equipment, weather restraints, etc.). 88-Not Attempted due to Medical Conditions or Safety Concerns. Roll Left & Right (QC): 6 Sit to Lying (QC): 6 Lying to Sitting/Side of Bed(Q: 6 Sit to Stand (QC): 6 Chair/Lsr-ad-Bsqeg Xfer(QC): 5 Weight Bearing Full Weight Bearing Full Weight Bearing Gait Training Does the Patient Walk?: Yes Walk 10 feet (QC): 5 Walk 50 ft with 2 Turns(QC): 5 Walk 150 ft (QC): 5 Gait Persons Needed: 1 Gait Assistive Device: Walker 4 Wheeled slow, kyphotic, head down, improved position to 4WW, keeps finger tips on brakes of walker Exercises Supine Ex: Bridging, Ankle pumps, Quad Set, Rolling, Glut sets, Heel Slides, Short Arc Quads, Scooting, Straight leg raise, Hip abd/add Supine Reps: 12 sidelying clam shells x 12 Assessment Current Status: Good Progress steady progress in all phases of Rx PT Short Term Goals Short Term Goals Time Frame: Oct 11, 2019 Roll Left & Right: 6 Sit to lyin Lying to sitting on side of be: 4 Sit to stand: 4 Chair/qtr-nf-gpbea transfer: 4 Walk 10 feet: 4 Walk 50 feet with two turns: 4 Walk 150 feet: 4 PT Deliverer Food Goals Deliverer Food Goals PT Intermediate Goals Time Frame: Oct 25, 2019 Roll Left & Right (QC): 6 Sit to Lying (QC): 6 Lying-Sitting on Side/Bed(QC): 6 Sit to Stand (QC): 6 Chair/Aex-gx-Rqoub Xfer(QC): 6 Toilet Transfer (QC): 6 Car Transfer (QC): 6 Does the Patient Walk: Yes Walk 10 feet (QC): 6 Walk 50ft with 2 Turns (QC): 6 Walk 150 ft (QC): 6 Walking 10ft on Uneven Surface: 6 1 Step (curb) (QC): 4 4 Steps (QC): 4 12 Steps (QC): 88 Picking up an Object (QC): 4 Does the Pt use WC or Scooter?: No Wheel 50 feet with 2 turns (QC: 9 Wheel 150 feet: 9 PT Plan Treatment/Plan Treatment Plan: Continue Plan of Care Treatment Plan: Bed Mobility, Education, Functional Activity [place], Functional Strength, Group Therapy, Gait, Safety, Therapeutic Exercise, Transfers Treatment Duration: Oct 25, 2019 Frequency: At least 5 of 7 days/Wk (IRF) Estimated Hrs Per Day: 1.5 hours per day Patient and/or Family Agrees t: Yes Safety Risks/Education Patient Education: Gait Training, Transfer Techniques, Correct Positioning, Disease Process, Safety Issues Teaching Recipient: Patient Teaching Methods: Demonstration, Discussion Response to Teaching: Verbalize Understanding, Return Demonstration Time/GCodes Time In: 1245 Time Out: 1315 Total Billed Treatment Time: 30 Total Billed Treatment 1,GT15m,Ex15m CEDRIC DODD TRANSPORT TRUCK DRIVER Oct 09, 2019 13:17
[2019-10-09 13:36] LABS: BILIRUBIN,URINE NEGATIVE (NEGATIVE); CLARITY,URINE CLEAR; COLOR,URINE YELLOW; GLUCOSE, URINE (UA) NEGATIVE (NEGATIVE); KETONES,URINE NEGATIVE (NEGATIVE); LEUKOCYTE ESTERASE ,URINE NEGATIVE (NEGATIVE); NITRITE,URINE NEGATIVE (NEGATIVE); PH,URINE 6.5 (5-9); PROTEIN,URINE NEGATIVE (NEGATIVE)
[2019-10-09 13:45] LABS: BACTERIA,URINE NEGATIVE /HPF; WBC,URINE RARE /HPF
--- NOTE | 2019-10-09 14:25 | Cardiology Progress Note ---
Cardiology SOAP Progress Note Subjective: No acute cardiac complaints. Denies any shortness of breath or chest pain. Objective: I&O/Vital Signs 10/09/19 05:01 Temp 36.6 Pulse 75 Resp 20 B/P (MAP) 148/68 (94) Pulse Ox 94 O2 Delivery Room Air 10/09/19 00:00 Intake Total 680 ml Balance 680 ml Weight (Pounds): 188 Weight (Ounces): 1.6 Weight (Calculated Kilograms): 85.087071 Constitutional: AAO x 3, PERRL, well-developed, well-nourished Respiratory: chest is bilaterally symmetric, lungs clear to auscultation Cardiovascular: regular rate-rhythm, S1 and S2; No diastolic murmur, No systolic murmur Gastrointestional: soft, audible bowel sounds Extremities: normal range of motion, non-tender, normal inspection, no lower extremity edema bilateral Neurologic/Psychiatric: no motor/sensory deficits, alert, normal mood/affect, oriented x 3 Skin: normal color, warm/dry Results/Procedures: Labs Laboratory Tests 10/09/19 05:25: White Blood Count 7.0, Red Blood Count 4.32L, Hemoglobin 13.6, Hematocrit 39, Mean Corpuscular Volume 89, Mean Corpuscular Hemoglobin 32, Mean Corpuscular Hemoglobin Concent 35, Red Cell Distribution Width 13.4, Platelet Count 190, Mean Platelet Volume 10.0, Neutrophils (%) (Auto) 59, Lymphocytes (%) (Auto) 25, Monocytes (%) (Auto) 13H, Eosinophils (%) (Auto) 3, Basophils (%) (Auto) 0, Neutrophils # (Auto) 4.1, Lymphocytes # (Auto) 1.7, Monocytes # (Auto) 0.9, Eosinophils # (Auto) 0.2, Basophils # (Auto) 0.0, Sodium Level 136, Potassium Level 3.9, Chloride Level 104, Carbon Dioxide Level 23, Anion Gap 9, Blood Urea Nitrogen 9, Creatinine 0.69, Estimat Glomerular Filtration Rate > 60, BUN/Creatinine Ratio 13, Glucose Level 96, Calcium Level 8.2L, Corrected Calcium 9.0, Total Bilirubin 0.8, Aspartate Amino Transf (AST/SGOT) 17, Alanine Aminotransferase (ALT/SGPT) 10, Alkaline Phosphatase 60, Total Protein 5.7L, Albumin 3.0L 7/20/20 13:25: Urine Color YELLOW, Urine Clarity CLEAR, Urine pH 6.5, Urine Specific [place] 1.010L, Urine Protein NEGATIVE, Urine Glucose (UA) NEGATIVE, Urine Ketones NEGATIVE, Urine Nitrite NEGATIVE, Urine Bilirubin NEGATIVE, Urine Urobilinogen 2.0, Urine Leukocyte Esterase NEGATIVE, Urine RBC (Auto) NEGATIVE, Urine RBC NONE, Urine WBC RARE, Urine Squamous Epithelial Cells 2-5, Urine Crystals NONE, Urine Bacteria NEGATIVE, Urine Casts NONE, Urine Mucus SMALLH, Urine Culture Indicated NO A/P: Assessment/Dx: Nausea, diverticulitis, Shortness of breath, significantly resolved. Acute on chronic diastolic congestive heart failure, Borderline positive troponin, negative nuclear stress test. Hypertensive heart disease Plan: Nausea, diverticulitis, defer to the primary team. Shortness of breath, echocardiogram shows moderate LVH with moderate diastolic dysfunction. Normal LV function. Moderate tricuspid regurgitation. No further shortness of breath. Acute on chronic mild diastolic congestive heart failure, I will hold off on gi ving Lasix for now. Shortness of breath is likely multifactorial. resolved. Borderline positive troponin, nuclear stress test done 10/03/2019 which showed no evidence of ischemia or infarction. Likely secondary to severe hypertension. Hypertensive heart disease, blood pressure significantly better after carvedilol was added. Already on amlodipine 10 mg, lisinopril 40 mg. continue carvedilol 12.5 mg twice a day. Thank you for your consultation. Please call me if you have any questions. Kalpana Zamudio MD, FACP, FACC, FSCAI, FHRS, CCDS Interventional Cardiology Cardiac Electrophysiology Vascular Medicine and Endovascular Interventions Bethanie ZAMUDIO MD Oct 09, 2019 14:25
[2019-10-09 18:00] VITALS: BP 115/57
[2019-10-09] MEDS: LACTULOSE SYRUP 10GM/15ML (ENULOSE) 30ML UDC PO PRN (19:09)
[2019-10-09] MEDS: PANTOPRAZOLE 40 MG (PROTONIX) TAB PO SCH (19:15)
[2019-10-09] MEDS: MICONAZOLE 2% POWDER (DESENEX AF) 90 GM TOP SCH (21:10)
[2019-10-09] MEDS: ALPRAZolam 0.25 MG (XANAX) TAB PO PRN (21:10)
[2019-10-09] MEDS: MIRTAZAPINE 15 MG (REMERON) TAB PO SCH (21:10)
[2019-10-09] MEDS: MICONAZOLE NITRATE 2% CRM 30 GM TP SCH (21:11)
[2019-10-10 06:05] VITALS: BP 145/75
--- NOTE | 2019-10-10 08:58 | Physical Therapy Daily Note ---
PT Daily Note-Current Subjective Pt in recliner upon arrival and agrees to tx. pt had no c/o pain. Pt stated she felt her legs were heavy d/t wraps. Mental Status Patient Orientation: Person, Place, Time, Situation Transfers SCALE: Activities may be completed with or without assistive devices. 2-Wldnrgxmdx-pxhfypb completes the activity by him/herself with no assistance from a helper. 5-Set-up or Clean-up Assistance-helper sets up or cleans up; patient completes activity. [place] assists only prior to or following the activity. 4-Supervision or Touching Assistance-helper provides verbal cues and/or touching/steadying and/or contact guard assistance as patient completes activity. Assistance may be provided throughout the activity or intermittently. 3-Partial/Moderate Assistance-helper does LESS THAN HALF the effort. [place] lifts, holds or supports trunk or limbs, but provides less than half the effort. 2-Substantial/Maximal Assistance-helper does MORE THAN HALF the effort. [place] lifts or holds trunk or limbs and provides more than half the effort. 2-Pahspjfom-dcsxoo does ALL the effort. Patient does none of the effort to complete the activity. Or, the assistance of 2 or more helpers is required for the patient to complete the activity. If activity was not attempted, code reason: 7-Patient Refused. 9-Not Applicable-not attempted and the patient did not perform the activity before the current illness, exacerbation or injury. 10-Not Attempted due to Environmental Limitations-(lack of equipment, weather restraints, etc.). 88-Not Attempted due to Medical Conditions or Safety Concerns. Sit to Stand (QC): 5 Toilet Transfer (QC): 5 Weight Bearing Full Weight Bearing Full Weight Bearing Gait Training Does the Patient Walk?: Yes Distance: 400 Walk 10 feet (QC): 5 Walk 50 ft with 2 Turns(QC): 5 Walk 150 ft (QC): 5 Gait Assistive Device: Walker 4 Wheeled Pt has wide NAIN, shuffling gait, and kyphotic posture. Pt needs VC to keep 4WW close to her. Stair Training 1 Step (curb) (QC): 4 Pt performed step ups on curb CGA with 4WW Exercises Seated Therapy Exercises: Glut set Seated Reps: 15 Standing: Hip Abduction, Hamstring curls, Heel/toe raises, Marching, Step-ups Standing Reps: 15 NuStep Minutes: 15 NuStep Workload: 5 Treatments Pt uses restroom prior to amb in [place]. Pt uses NuStep for 15min followed by standing and seated exercises. Pt amb to carpet floors and amb 50'. Pt returns to recliner in room and was left with all needs met, call light in hand. Assessment Current Status: Good Progress Pt has increased strength, endurance, and safety. Pt requires fewer rest breaks. PT Short Term Goals Short Term Goals Time Frame: Oct 11, 2019 Roll Left & Right: 6 Sit to lyin Lying to sitting on side of be: 4 Sit to stand: 4 Chair/rcz-ev-bqozo transfer: 4 Walk 10 feet: 4 Walk 50 feet with two turns: 4 Walk 150 feet: 4 PT Chcf Goals Chcf Goals PT Chcf Goals Time Frame: Oct 25, 2019 Roll Left & Right (QC): 6 Sit to Lying (QC): 6 Lying-Sitting on Side/Bed(QC): 6 Sit to Stand (QC): 6 Chair/Gme-bn-Juuwv Xfer(QC): 6 Toilet Transfer (QC): 6 Car Transfer (QC): 6 Does the Patient Walk: Yes Walk 10 feet (QC): 6 Walk 50ft with 2 Turns (QC): 6 Walk 150 ft (QC): 6 Walking 10ft on Uneven Surface: 6 1 Step (curb) (QC): 4 4 Steps (QC): 4 12 Steps (QC): 88 Picking up an Object (QC): 4 Does the Pt use WC or Scooter?: No Wheel 50 feet with 2 turns (QC: 9 Wheel 150 feet: 9 PT Plan Problem List Problem List: Activity Tolerance, Safety Treatment/Plan Treatment Plan: Continue Plan of Care Treatment Plan: Bed Mobility, Education, Functional Activity [place], Functional Strength, Group Therapy, Gait, Safety, Therapeutic Exercise, Transfers Treatment Duration: Oct 25, 2019 Frequency: At least 5 of 7 days/Wk (IRF) Estimated Hrs Per Day: 1.5 hours per day Patient and/or Family Agrees t: Yes Safety Risks/Education Patient Education: Gait Training, Steps, Correct Positioning, Safety Issues Teaching Recipient: Patient Teaching Methods: Demonstration, Discussion Response to Teaching: Verbalize Understanding, Return Demonstration Time/GCodes Time In: 800 Time Out: 900 Total Billed Treatment Time: 60 Total Billed Treatment 1, Ex x2 (30m), FA x2 (30m) JAZMIN RODRÍGUEZ FOOD MANAGEMENT AIDE Oct 10, 2019 08:58
--- NOTE | 2019-10-10 09:33 | PM&R Progress Note ---
Subjective HPI/CC On Admission Date Seen by Provider: Oct 10, 2019 Time Seen by Provider: 09:30 Subjective/Events-last exam Pt having a very good day today Dr. Astorga will be consulted for abdominal pain and abnormal CT scan that Dr. Alicea ordered Bowels are moving after Lactulose No nausea and maintain and Reglan BP is much improved Conferred with RN Checked meds and labs Reviewed therapy notes Review of Systems General: Fatigue, Malaise Objective Exam Vital Signs Vital Signs Date Time Temp Pulse Resp B/P (MAP) Pulse Ox O2 Delivery O2 Flow Rate FiO2 10/10/19 16:36 36.5 64 20 137/60 (85) 97 Room Air 10/07/19 16:00 Capillary Refill : Less Than 3 Seconds General Appearance: No Apparent Distress, WD/WN, Anxious, Chronically ill, Obese HEENT: PERRL/EOMI, Normal ENT Inspection, Pharynx Normal Neck: Full Range of Motion, Normal Inspection, Non Tender, Supple, Carotid Bruit Respiratory: Chest Non Tender, Lungs Clear, Normal Breath Sounds, No Accessory Muscle Use, No Respiratory Distress Cardiovascular: Regular Rate, Rhythm, No Edema, No Gallop, No JVD, No Murmur, Normal Peripheral Pulses Gastrointestinal: Normal Bowel Sounds, No Organomegaly, No Pulsatile Mass, Non Tender, Soft Back: Normal Inspection, No CVA Tenderness, No Vertebral Tenderness Extremity: Normal Capillary Refill, Normal Inspection, Normal Range of Motion, Non Tender, No Calf Tenderness, No Pedal Edema Neurologic/Psychiatric: Alert, Oriented x3, No Motor/Sensory Deficits, Normal Mood/Affect, collection technician II-XII Norm as Tested, Abnormal Gait, Motor Weakness (generalized weakness all extremities) Skin: Normal Color, Warm/Dry Lymphatic: No Adenopathy Results/Procedures Lab Patient resulted labs reviewed. FIM Transfers Therapy Code Descriptions/Definitions Functional [place] Measure: 0=Not Assessed/NA 4=Minimal Assistance 1=Total Assistance 5=Supervision or Setup 2=Maximal Assistance 6=Modified [place] 3=Moderate Assistance 7=Complete IndependenceSCALE: Activities may be completed with or without assistive devices. 5-Iihdnuscxe-vzwnmtn completes the activity by him/herself with no assistance from a helper. 5-Set-up or Clean-up Assistance-helper sets up or cleans up; patient completes activity. [place] assists only prior to or following the activity. 4-Supervision or Touching Assistance-helper provides verbal cues and/or touching/steadying and/or contact guard assistance as patient completes activity. Assistance may be provided throughout the activity or intermittently. 3-Partial/Moderate Assistance-helper does LESS THAN HALF the effort. [place] lifts, holds or supports trunk or limbs, but provides less than half the effort. 2-Substantial/Maximal Assistance-helper does MORE THAN HALF the effort. [place] lifts or holds trunk or limbs and provides more than half the effort. 4-Wshpocwmf-ipcsiv does ALL the effort. Patient does none of the effort to complete the activity. Or, the assistance of 2 or more helpers is required for the patient to complete the activity. If activity was not attempted, code reason: 7-Patient Refused. 9-Not Applicable-not attempted and the patient did not perform the activity before the current illness, exacerbation or injury. 10-Not Attempted due to Environmental Limitations-(lack of equipment, weather restraints, etc.). 88-Not Attempted due to Medical Conditions or Safety Concerns. Roll Left to Right (QC): 6 Sit to Lying (QC): 6 Sit to Stand (QC): 5 Chair/Sry-zd-Jkxjn Xfer(QC): 5 Car Transfer (QC): 5 Gait Training Does the Patient Walk?: Yes Distance: 400 Walk 10 feet (QC): 5 Walk 50 ft with 2 Turns(QC): 5 Walk 150 ft (QC): 5 Walking 10ft/uneven surface-QC: 3 Gait Persons Needed: 1 Gait Assistive Device: Walker 4 Wheeled Wheelchair Training Does the Pt Use a Wheelchair?: No Wheel 50 ft with 2 turns (QC): 9 Wheel 150 ft (QC): 9 Stair Training 1 Step (curb) (QC): 4 4 Steps (QC): 88 12 Steps (QC): 88 Balance Picking up an Object (QC): 88 (NT due to poor strength) ADL-Treatment Eating (QC): 6 (Pt reports being able to cut food and bring food to her mouth this AM. ) Oral Hygiene (QC): 5 (Pt completed standing at sink) Shower/Bathe Self (QC): 4 Upper Body Dressing (QC): 5 (set up) Lower Body Dressing (QC): 4 (SBA, pt able to doff brief, don brief and pants using AE as needed. ) On/Off Footwear (QC): 3 (Pt able to doff gripper socks using dressing stick. Pt then handed sock aide to don gripper socks, she states "I don't remember how to use this", requiring mod verbal cues for task, and assistance with pulling sock the rest of the way up once onto foot.) Toileting Hygiene (QC): 6 Toilet Transfer (QC): 4 (close SBA on/off toilet) Assessment/Plan Assessment and Plan Assess & Plan/Chief Complaint Assessment: Debility Severe weakness Near syncope HTN GERD Glaucoma Gastroparesis Edema legs Constipation resolved 10/07/19 Nocturia Plan: IRF protocol Home meds Monitor BP PRINCESS wraps to legs BM treatment change to prn now Increase ADL's Change time of Coreg in case that is causing nocturia 10/09/19: Check urine sample with an in & out cath Schedule Reglan twice daily Monitor patient progress closely may need swing bed afterwards or to replace the structure therapy program 10/10/19: Continue bowel regimen Consult for abdominal pain and CT scan abnormality Continue therapy patient much improved today (1) Debility (2) Weakness generalized Status: Acute (3) Transient hypotension Status: Acute (4) Near syncope Status: Acute (5) Microcytic anemia Status: Acute (6) HTN (hypertension) Status: Acute (7) Dyspnea on exertion Status: Acute MARKO ANDERS DO Oct 10, 2019 09:33
[2019-10-10] MEDS: CARVEDILOL 12.5 MG (COREG) TABLET PO SCH ×2 (09:40→21:48)
[2019-10-10] MEDS: ASPIRIN E.C. 81 MG (ECOTRIN) TAB PO SCH (09:40)
[2019-10-10] MEDS: METOCLOPRAMIDE 5 MG (REGLAN) TAB PO SCH ×2 (09:40→21:48)
[2019-10-10] MEDS: lisINopril 40 MG (PRINIVIL) TABLET PO SCH (09:40)
[2019-10-10] MEDS: SENNA W/DOCUSATE (SENOKOT S) TABLET PO SCH ×2 (09:40→21:49)
[2019-10-10] MEDS: DOCUSATE SODIUM 100 MG (COLACE) CAP PO SCH ×2 (09:40→21:49)
[2019-10-10] MEDS: amLODIPine 5 MG (NORVASC) TAB PO SCH (09:40)
[2019-10-10] MEDS: polyethylene glycoL POWDER 17 GM (MIRALAX) PACK PO SCH ×3 (09:41→21:49)
[2019-10-10] MEDS: CLOTRIMAZOLE 1% CREAM (LOTRIMIN) 30 GM TOP PRN ×2 (09:41→21:50)
[2019-10-10] MEDS: BRIMONIDINE 0.2% (ALPHAGAN) OPHTH SOLN 5 ML BTL OS SCH ×3 (09:49→21:49)
[2019-10-10] MEDS: MICONAZOLE 2% POWDER (DESENEX AF) 90 GM TOP SCH ×2 (09:52→21:48)
[2019-10-10] MEDS: TIMOLOL MALEATE 0.5% 5 ML (TIMOPTIC) BTL OS SCH ×2 (09:53→21:53)
[2019-10-10] MEDS: MICONAZOLE NITRATE 2% CRM 30 GM TP SCH ×2 (09:54→21:55)
--- NOTE | 2019-10-10 11:34 | Occupational Ther Daily Note ---
OT Current Status-Daily Note Subjective Pt sitting in chair, agrees to treatment. ADL-Treatment Therapy Code Descriptions/Definitions Functional [place] Measure: 0=Not Assessed/NA 4=Minimal Assistance 1=Total Assistance 5=Supervision or Setup 2=Maximal Assistance 6=Modified [place] 3=Moderate Assistance 7=Complete IndependenceSCALE: Activities may be completed with or without assistive devices. 2-Xgefsgirvk-pzoqsay completes the activity by him/herself with no assistance from a helper. 5-Set-up or Clean-up Assistance-helper sets up or cleans up; patient completes activity. [place] assists only prior to or following the activity. 4-Supervision or Touching Assistance-helper provides verbal cues and/or touching/steadying and/or contact guard assistance as patient completes activity. Assistance may be provided throughout the activity or intermittently. 3-Partial/Moderate Assistance-helper does LESS THAN HALF the effort. [place] lifts, holds or supports trunk or limbs, but provides less than half the effort. 2-Substantial/Maximal Assistance-helper does MORE THAN HALF the effort. [place] lifts or holds trunk or limbs and provides more than half the effort. 3-Hanovspcl-jgaotq does ALL the effort. Patient does none of the effort to complete the activity. Or, the assistance of 2 or more helpers is required for the patient to complete the activity. If activity was not attempted, code reason: 7-Patient Refused. 9-Not Applicable-not attempted and the patient did not perform the activity before the current illness, exacerbation or injury. 10-Not Attempted due to Environmental Limitations-(lack of equipment, weather restraints, etc.). 88-Not Attempted due to Medical Conditions or Safety Concerns. Oral Hygiene (QC): 5 (standing at sink) Shower/Bathe Self (QC): 3 (Bathing completed while seated on shower bench and using hand held shower and long handled sponge. Pt able to wash all areas, but requires min assist to dry feet.) Upper Body Dressing (QC): 5 (Dons pullover dress with set up) Lower Body Dressing (QC): 4 (Pt donned Depends with SBA using dressing stick. Verbal cues for use of adaptive equipment. Stood with supervision for balance during pant hike) Toileting Hygiene (QC): 5 Toilet Transfer (QC): 5 Pt performed gait to therapy gym with 4WW, no LOB noted. Arm bike [id number] to increase overall strength and activity tolerance needed for functional task completion. Pt completed activity with minimal resistance and slow pace. One rest break taken. Fine motor nuts and bolts task completed with bilateral UE with 1# weights in place to promote increased strength, activity tolerance, and coordination. Pt able to complete task with slow pace and increased time. Pt returned to room, sitting in chair with needs met after session Education Teaching Methods: Demonstration, Discussion Response to Teaching: Return Demonstration, Reinforcement Needed OT Short Term Goals Short Term Goals Time Frame: Oct 11, 2019 Toileting hygiene: 4 Lower body dressin OT Addiction Treatment Counselor Goals Addiction Treatment Counselor Goals Time Frame: Oct 25, 2019 Eating (QC): 6 Oral Hygiene (QC): 6 Toileting Hygiene (QC): 6 Shower/Bathe Self (QC): 5 Upper Body Dressing (QC): 6 Lower Body Dressing (QC): 6 On/Off Footwear (QC): 5 Additional Goals: 1-Demonstrate ADL Tasks, 2-Verbalize Understanding, 3-ImproveStrength/[place] 1=Demonstrate adherence to instructed precautions during ADL tasks. 2=Patient will verbalize/demonstrate understanding of assistive devices/modifications for ADL. 3=Patient will improve strength/tolerance for activity to enable patient to perform ADL's. OT Education/Plan Discharge Recommendations Plan/Recommendations: Continue POC Treatment Plan/Plan of Care Patient would benefit from OT for education, treatment and training to promote independence in ADL's, mobility, safety and/or upper extremity function for ADL's. Plan of Care: ADL Retraining, Functional Mobility, Group Exercise/Act as Ind, UE Funct Exercise/Act Treatment Duration: Oct 25, 2019 Frequency: At least 5 of 7 days/Wk (IRF) Estimated Hrs Per Day: 1.5 hours per day Agreement: Yes Rehab Potential: Fair Time/GCodes Start Time: 09:45 Stop Time: 11:15 Total Time Billed (hr/min): 90 Billed Treatment Time 1 visit, ADLx4(60minutes), EXx2(30minutes) HEATHER ZARAGOZA OT Oct 10, 2019 11:34
--- NOTE | 2019-10-10 12:29 | Progress Note - Cardiology ---
Cardiology SOAP Progress Note Objective: I&O/Vital Signs 10/12/19 10/12/19 05:44 09:06 Temp 36.4 Pulse 75 Resp 20 B/P (MAP) 166/76 (106) Pulse Ox 96 O2 Delivery Room Air Room Air 10/12/19 00:00 Intake Total 800 ml Balance 800 ml Weight (Pounds): 188 Weight (Ounces): 1.6 Weight (Calculated Kilograms): 85.250473 Constitutional: AAO x 3, PERRL, well-developed, well-nourished Respiratory: chest is bilaterally symmetric, lungs clear to auscultation Cardiovascular: regular rate-rhythm, S1 and S2; No diastolic murmur, No systolic murmur Gastrointestional: soft, audible bowel sounds Extremities: normal range of motion, non-tender, normal inspection, no lower extremity edema bilateral Neurologic/Psychiatric: no motor/sensory deficits, alert, normal mood/affect, oriented x 3 Skin: normal color, warm/dry Results/Procedures: Labs A/P: Assessment: Nausea - resolved Diverticulitis - medical services managing Echocardiogram of October 03, [address] Zamudio showed moderate LVH. LA mod dilated. Mitral valve calcification. Mod TR. PASP 45-50mmHg Acute on chronic mild diastolic congestive heart failure - clinically compensated MPI of October 03, [address] Zamudio showed no evidence of ischemia or infarction Labile HTN Plan: Labile HTN - has not been receiving evening dose of Coreg Reduce Norvasc to allow room for BID dosing of Coreg Monitor lab We have reviewed Dr. Zamudio's notes DENISE PACHECO Oct 10, 2019 12:29
--- NOTE | 2019-10-10 13:28 | Physical Therapy Daily Note ---
PT Daily Note-Current Subjective Pt in recliner upon arrival and states she needs to use restroom. Pt reports she feels worn out this afternoon d/t tx immediately after lunch. Pain Location: No Pain Reported Mental Status Patient Orientation: Person, Place, Time, Situation Transfers SCALE: Activities may be completed with or without assistive devices. 6-Rburmlsfbk-ghifzap completes the activity by him/herself with no assistance from a helper. 5-Set-up or Clean-up Assistance-helper sets up or cleans up; patient completes activity. [place] assists only prior to or following the activity. 4-Supervision or Touching Assistance-helper provides verbal cues and/or touching/steadying and/or contact guard assistance as patient completes activ ity. Assistance may be provided throughout the activity or intermittently. 3-Partial/Moderate Assistance-helper does LESS THAN HALF the effort. [place] lifts, holds or supports trunk or limbs, but provides less than half the effort. 2-Substantial/Maximal Assistance-helper does MORE THAN HALF the effort. [place] lifts or holds trunk or limbs and provides more than half the effort. 3-Yebiwldnd-oofjwn does ALL the effort. Patient does none of the effort to complete the activity. Or, the assistance of 2 or more helpers is required for the patient to complete the activity. If activity was not attempted, code reason: 7-Patient Refused. 9-Not Applicable-not attempted and the patient did not perform the activity before the current illness, exacerbation or injury. 10-Not Attempted due to Environmental Limitations-(lack of equipment, weather restraints, etc.). 88-Not Attempted due to Medical Conditions or Safety Concerns. Sit to Stand (QC): 5 Weight Bearing Full Weight Bearing Full Weight Bearing Gait Training Does the Patient Walk?: Yes Distance: 150 x5 Gait Assistive Device: Walker 4 Wheeled Pt amb through unit to elevator doors. Pt descended/ascended ramp main floor of hospital, and amb on carpeted area 150' x3 with 4WW and SBA Treatments Pt uses restroom prior to tx. Pt amb to elevators, in WC pt taken to ramp on main floor. Pt taken to carpeted area on main floor following ramp. Pt amb x3 on carpet then taken back to IRU in . Pt returns to recliner and was left with all needs met. Assessment Current Status: Good Progress Pt has increased endurance and strength. Pt requires frequent rest breaks throughout tx. PT Short Term Goals Short Term Goals Time Frame: Oct 11, 2019 Roll Left & Right: 6 Sit to lyin Lying to sitting on side of be: 4 Sit to stand: 4 Chair/fkx-ey-gyrum transfer: 4 Walk 10 feet: 4 Walk 50 feet with two turns: 4 Walk 150 feet: 4 PT Ordnance Truck Installation Mechanic Goals Longterm Goals PT Longterm Goals Time Frame: Oct 25, 2019 Roll Left & Right (QC): 6 Sit to Lying (QC): 6 Lying-Sitting on Side/Bed(QC): 6 Sit to Stand (QC): 6 Chair/Hlu-bq-Sadhp Xfer(QC): 6 Toilet Transfer (QC): 6 Car Transfer (QC): 6 Does the Patient Walk: Yes Walk 10 feet (QC): 6 Walk 50ft with 2 Turns (QC): 6 Walk 150 ft (QC): 6 Walking 10ft on Uneven Surface: 6 1 Step (curb) (QC): 4 4 Steps (QC): 4 12 Steps (QC): 88 Picking up an Object (QC): 4 Does the Pt use WC or Scooter?: No Wheel 50 feet with 2 turns (QC: 9 Wheel 150 feet: 9 PT Plan Problem List Problem List: Activity Tolerance, Functional Strength, Safety, Gait Treatment/Plan Treatment Plan: Continue Plan of Care Treatment Plan: Bed Mobility, Education, Functional Activity [place], Functional Strength, Group Therapy, Gait, Safety, Therapeutic Exercise, Transfers Treatment Duration: Oct 25, 2019 Frequency: At least 5 of 7 days/Wk (IRF) Estimated Hrs Per Day: 1.5 hours per day Patient and/or Family Agrees t: Yes Safety Risks/Education Patient Education: Gait Training, Correct Positioning, Safety Issues Teaching Recipient: Patient Teaching Methods: Discussion Response to Teaching: Verbalize Understanding Time/GCodes Time In: 1255 Time Out: 1325 Total Billed Treatment Time: 30 Total Billed Treatment 1, GT x2 (30m) JAZMIN RODRÍGUEZ CAREER PROFESSIONAL Oct 10, 2019 13:28
--- NOTE | 2019-10-10 15:12 | NUR ---
Notified Dr. Pierce's office of consult.
--- NOTE | 2019-10-10 16:07 | Progress Note - Cardiology ---
Cardiology SOAP Progress Note Subjective: No cp or palp or syncope or shortness of breath at rest Objective: I&O/Vital Signs 10/10/19 10/10/19 06:05 08:41 Temp 36.4 Pulse 81 Resp 20 B/P (MAP) 145/75 (98) Pulse Ox 97 O2 Delivery Room Air Room Air 10/10/19 00:00 Intake Total 840 ml Balance 840 ml Weight (Pounds): 188 Weight (Ounces): 1.6 Weight (Calculated Kilograms): 85.831702 Constitutional: AAO x 3, PERRL, well-developed, well-nourished Respiratory: chest is bilaterally symmetric, lungs clear to auscultation Cardiovascular: regular rate-rhythm, S1 and S2; No diastolic murmur, No systolic murmur Gastrointestional: soft, audible bowel sounds Extremities: normal range of motion, non-tender, normal inspection, no lower extremity edema bilateral Neurologic/Psychiatric: no motor/sensory deficits, alert, normal mood/affect, oriented x 3 Skin: normal color, warm/dry Results/Procedures: Labs Laboratory Tests 10/09/19 05:25 A/P: Assessment: Gen weakness and debility Diverticulitis - Medical services managing Echocardiogram of October 03, [address] Zamudio showed moderate LVH. LA mod dilated. Mitral valve calcification. Mod TR. PASP 45-50mmHg Acute on chronic mild diastolic congestive heart failure - clinically compensated MPI of October 03, [address] Zamudio showed no evidence of ischemia or infarction Labile HTN Plan: I interviewed and examined the patient and reviewed records of this hospitalization Reduce Norvasc to allow room for BID dosing of Coreg Monitor MUSA Moreno MD FACP FACC CCDS Oct 10, 2019 16:07
[2019-10-10 16:36] VITALS: BP 137/60
[2019-10-10] MEDS: LACTULOSE SYRUP 10GM/15ML (ENULOSE) 30ML UDC PO PRN (16:42)
--- NOTE | 2019-10-10 16:42 | NUR ---
Dr. Astorga in to see pt re: consult.
--- NOTE | 2019-10-10 17:03 | Consultation - Surgery ---
History of Present Illness History of Present Illness Patient Consulted On(tc/time) 10/10/19 16:58 Time Seen by Provider: 16:19 History of Present Illness Surgery asked to consult regarding Abd pain, diverticulitis. HPI per PM&R: HPI: This is an 83yoWF clinic pt of Dr. Alicea known to me 1.5 years ago after I admitted her for [facility] swing bed who presents due to severe generalized weakness, dizziness, and malignant HTN. She did undergo a stress test by cardiology which was within normal limits. She had some significant problems with abdominal pain. CT scan ordered by Dr. Alicea did not reveal anything but some diverticulitis but malignant HTN caused continued issues and pt became so weak she could not remain at home so she is presented to inpatient rehab for structured PT in order to regain function in order to go home and live independently. Her prior level of functioning uses a walker and cane and she had been doing well since the year and a half I had last seen her. When I saw pt this afternoon she stated she had an episode of pain in the RUQ and was going to see me in the clinic but developed "bad blood pressure" and got admitted to the hospital. She also reports one episode of rectal bleed a few weeks ago. She is not having any pain right now. She reports hx of anemia and had EGD which showed ulcers and then on repeat they were healed. She does not think she is anemic now. She takes Reglan and states that usually controls her GERD symptoms. Allergies and Home Medications Allergies Coded Allergies: Penicillins (Verified Allergy, Unknown, 10/01/19) Home Medications Amlodipine Besylate 5 Mg Tablet, 10 MG PO DAILY, (Reported) TAKES 2 (5MG) TABS Aspirin 81 Mg Tablet.dr, 81 MG PO DAILY, (Reported) Benazepril HCl 40 Mg Tab, 40 MG PO DAILY, (Reported) Brimonidine Tartrate/Timolol 5 Ml Drops, 1 DROP OS BID, (Reported) Clonidine HCl 0.1 Mg Tablet, 0.1 MG PO DAILY PRN for DBP OVER 160, (Reported) Clotrimazole 15 Gm Cream..g., 1 APPLIC TOP DAILY PRN for RASH, (Reported) Cyanocobalamin 1,000 Mcg/Ml Inj, 1,000 MCG INJ MONTHLY, (Reported) Docusate Sodium 100 Mg Capsule, 100 MG PO DAILY PRN for CONSTIPATION-1ST LINE, (Reported) Lactulose 10 Gm/15 Ml Solution, 15 ML PO DAILY PRN for CONSTIPATION-3RD LINE, (Reported) Metoprolol Succinate 25 Mg Tab.er.24h, 25 MG PO 1900, (Reported) Ondansetron HCl 4 Mg Tablet, 0.4 MG PO TID PRN for NAUSEA/VOMITING-1ST LINE, (Reported) Pantoprazole Sodium 40 Mg Tablet.dr, 40 MG PO 1900, (Reported) Patient Home Medication List Home Medication List Reviewed: Yes Past Vavncos-Ihalak-Zaoasc Hx Patient Social History Alcohol Use: Denies Use Recreational Drug Use: No Smoking Status: Never a Smoker 2nd Hand Smoke Exposure: No Recent Foreign Travel: No Contact w/Someone Who Travel: No Recent Infectious Disease Expo: No Recent Hopitalizations: No Physical Abuse Screen: No Sexual Abuse: No Immunizations Up To Date Tetanus Booster (TDap): More than 5yrs PED Vaccines UTD: Yes Date of Pneumonia Vaccine: Apr 30, 2018 Date of Influenza Vaccine: Dec 27, 2017 Seasonal Allergies Seasonal Allergies: No Surgeries History of Surgeries: Yes (CATARACTS;EGD'S/COLONOSCOPIES; R WRIST FX/EXTERNAL FIXATOR;) Surgeries: Adenoidectomy, Appendectomy, Eye Surgery, Gallbladder, Hysterectomy, Orthopedic, Parathyroidectomy, Tonsillectomy Respiratory History of Respiratory Disorde: No (pulmonary hypertension) Cardiovascular History of Cardiac Disorders: Yes (IRREGULAR HEART BEAT- irregular ekg, carotid artery stenosis, aortic regurg) Cardiac Disorders: High Cholesterol, Hypertension, Irregular Heartbeat Neurological History of Neurological Disord: No Reproductive System : No Hx Reproductive Disorders: No Sexually Transmitted Disease: No HIV/AIDS: No MANAGER RESEARCH DEVELOPMENT History: Menopausal Genitourinary History of Genitourinary Disor: No Gastrointestinal History of Gastrointestinal Di: Yes Gastrointestinal Disorders: Gastroesophageal Reflux, Chronic Constipation, Diverticulosis, Hiatal Hernia, Ulcer Musculoskeletal History of Musculoskeletal Dis: Yes (R WRIST FX/EXTERNAL FIXATOR 08/2016;R WRIST FX -NO SURGERY) Musculoskeletal Disorders: Arthritis, Fractures Endocrine History of Endocrine Disorders: Yes Endocrine Disorders: Parathyroid Disease HEENT History of HEENT Disorders: Yes HEENT Disorders: Cataract, Glaucoma Loss of Vision: Denies Hearing Impairment: Denies Cancer History of Cancer: No Psychosocial History of Psychiatric Problem: No Integumentary History of Skin or Integumenta: No Blood Transfusions History of Blood Disorders: No Adverse Reaction to a Blood Tr: No Family Medical History Significant Family History: Heart Disease (Father had [facility]), Hypertension, Stroke (Mother) Family Medial History: Completed stroke Hypertension Myocardial infarction Review of Systems-General Constitutional: dizziness, malaise, weakness EENTM: blurred vision; No mouth pain, No mouth swelling, No epistaxis, No throat swelling Respiratory: cough (occasionally when she eats); No dyspnea on exertion, No hemoptysis, No phlegm Cardiovascular: No chest pain; palpitations; No syncope Gastrointestinal: abdominal pain (RUQ), dysphagia; No jaundice; nausea; No vomiting; other (hematochezia) Genitourinary: No dysuria, No frequency, No hematuria Musculoskeletal: joint pain, joint swelling, muscle stiffness Skin: No change in color, No change in hair/nails Psychiatric/Neurological: Denies Anxiety, Denies Depressed, Denies Seizure; Weakness Other pt denies any hx of abnormal bleeding or bruising Physical Exam-General Problems Physical Exam Vital Signs Vital Signs - First Documented 10/04/19 14:44 Temp 36.6 Pulse 67 Resp 18 B/P (MAP) 130/58 Pulse Ox 94 O2 Delivery Room Air Capillary Refill : Less Than 3 Seconds General Appearance: WD/WN, no apparent distress Eyes: Bilateral Eye PERRL, Bilateral Eye EOMI HEENT: pharynx normal; No scleral icterus (R), No scleral icterus (L), No pale conjunctivae (R), No pale conjunctivae (L) Neck: non-tender, supple Respiratory: lungs clear, normal breath sounds, no respiratory distress, no accessory muscle use Cardiovascular: regular rate, rhythm, no murmur Gastrointestinal: soft, no organomegaly, no pulsatile mass Back: no CVA tenderness, no vertebral tenderness Extremities: no pedal edema, no calf tenderness, normal capillary refill Neurologic/Psychiatric: spine specialist II-XII nml as tested, alert, normal mood/affect, oriented x 3 Skin: normal color, warm/dry Lymphatic: no adenopathy (neck, axilla or groin) Assessment/Plan Assessment/Plan Assessment/Plan Rectal bleed Diverticulitis vs. Diverticulosis Abd pain - RUQ Pt needs a colonoscopy and possibly an EGD; but first I will need to look at CT abd/pelvis from [place] to make sure it is not an active infection. If there is an infection then we must hold off on colonoscopy for 6 weeks. She is not anemic and not really having GERD symptoms, but still may benefit from an EGD. I will discuss her case with Dr. Corona and then decide on timing of endoscopy. It may be best to prep her for a colonoscopy on Wednesday. I discussed all of this with her and she is willing to do both. Will make decision after seeing CT and speaking with Dr. Corona. Clinical Quality Measures DVT/VTE Risk/Contraindication: Risk Factor Score Per Nursin RFS Level Per Nursing on Admit: 4+=Very High KALEY JEWELL DO Oct 10, 2019 17:03
--- NOTE | 2019-10-10 17:27 | NUR ---
Dr. Pierce & staff here to perform foot/toenail care as ordered by consult.
--- NOTE | 2019-10-10 17:39 | Podiatry Progress Note ---
Standard Progress Note Progress Notes/Assess & Plan Date Seen by a Provider: Oct 10, 2019 Time Seen by a Provider: 17:39 Progress/Assessment & Plan Consult dictated and foot care given. Dx: Onychomycosis, Edema, Peripheral Neuropathy Final Diagnosis Onychomycosis, Edema, Peripheral Neuropathy NIKI CAMPA DPBethanie Oct 10, 2019 17:39
--- NOTE | 2019-10-10 18:19 | CONSULTATION REPORT ---
DATE OF SERVICE: REASON FOR CONSULTATION: Foot care. HISTORY OF PRESENT ILLNESS: This 83-year-old female was admitted due to weakness, dizziness and malignant hypertension. She also had some significant abdominal pain. Due to this, she has had difficulty reaching for and caring for his feet in general and is complaining about foot discomfort, especially associated with the forefoot nails. Prior to admission, she was functioning with a walker and cane. PAST MEDICAL HISTORY: The patient has a past medical history of adenoidectomy, appendectomy, eye surgery, cholecystectomy, hysterectomy, orthopedic surgery, parathyroidectomy, tonsillectomy, hypercholesterolemia, hypertension, irregular heartbeat, gastroesophageal reflux, chronic constipation, diverticulitis, hiatal hernia, peptic ulcer disease, arthritis, fractures, parathyroid disease, cataracts and glaucoma. SOCIAL HISTORY: The patient denies tobacco or alcohol use. She is a . CURRENT MEDICATIONS: Listed on the patient's chart. ALLERGIES: SHE IS ALLERGIC TO PENICILLIN. PHYSICAL EXAMINATION: GENERAL: This is a well-developed female, in no apparent distress. EXTREMITIES: She has 2/4 dorsalis pedis pulse on the right, 0/4 dorsalis pedis pulse on left, 0/4 posterior tibial pulse on the right and 2/4 posterior tibial pulse on the left. Cap refill time is less than three seconds. No digital hair growth is present. Pitting edema is noted bilaterally. NEUROLOGIC: The patient has intact protective sensation per 10-gram monofilament wire examination bilaterally. Diminished vibratory sensation and deep tendon reflexes to the Achilles tendon, bilateral foot. DERMATOLOGIC: The patient has thick, yellow dystrophic toenails with subungual debris associated with the right 2, 3, 4, 5 and left 1, 4, 5 digits. No open lesions identified bilaterally. MUSCULOSKELETAL FINDINGS: She has 3/5 muscle strength to the four major quadrants of the foot. There is adductor varus contracture of the fifth toe bilaterally. ASSESSMENT: 1. Atherosclerosis. 2. Edema. 3. Idiopathic neuropathy. 4. Onychomycosis. 5. Hammer digit syndrome PLAN: Various treatment options were discussed with the patient today. We debrided her toenails manually and mechanically especially R 2, 3, 4 and 5 and L 1, 4, 5 digits. She indicated this help reduce much of her discomfort almost immediately. We discussed continuation of podiatric care and she is welcome to follow up upon discharge in the office as necessary. Job ID: [id number] DocumentID: [id number] Dictated Date: 10/10/2019 17:45:29 Alteration Tailor Date: 10/10/2019 18:18:10 Dictated By: SALAZAR HAMMOND
[2019-10-10] MEDS: PANTOPRAZOLE 40 MG (PROTONIX) TAB PO SCH (18:36)
[2019-10-10] MEDS: MIRTAZAPINE 15 MG (REMERON) TAB PO SCH (21:48)
[2019-10-11 06:07] VITALS: BP 155/68
[2019-10-11] MEDS: ASPIRIN E.C. 81 MG (ECOTRIN) TAB PO SCH (08:15)
[2019-10-11] MEDS: DOCUSATE SODIUM 100 MG (COLACE) CAP PO SCH ×2 (08:15→20:58)
[2019-10-11] MEDS: lisINopril 40 MG (PRINIVIL) TABLET PO SCH (08:15)
[2019-10-11] MEDS: METOCLOPRAMIDE 5 MG (REGLAN) TAB PO SCH ×2 (08:15→20:57)
[2019-10-11] MEDS: CARVEDILOL 12.5 MG (COREG) TABLET PO SCH ×2 (08:15→21:14)
[2019-10-11] MEDS: SENNA W/DOCUSATE (SENOKOT S) TABLET PO SCH ×2 (08:15→20:58)
[2019-10-11] MEDS: MICONAZOLE 2% POWDER (DESENEX AF) 90 GM TOP SCH ×2 (08:16→21:09)
[2019-10-11] MEDS: amLODIPine 5 MG (NORVASC) TAB PO SCH (08:16)
[2019-10-11] MEDS: MICONAZOLE NITRATE 2% CRM 30 GM TP SCH ×2 (08:16→21:10)
[2019-10-11] MEDS: polyethylene glycoL POWDER 17 GM (MIRALAX) PACK PO SCH ×2 (08:16→19:25)
[2019-10-11] MEDS: TIMOLOL MALEATE 0.5% 5 ML (TIMOPTIC) BTL OS SCH ×2 (08:17→21:09)
[2019-10-11] MEDS: BRIMONIDINE 0.2% (ALPHAGAN) OPHTH SOLN 5 ML BTL OS SCH ×3 (08:17→21:09)
--- NOTE | 2019-10-11 08:51 | PM&R Progress Note ---
Subjective HPI/CC On Admission Date Seen by Provider: Oct 11, 2019 Time Seen by Provider: 09:45 Subjective/Events-last exam Colonoscopy was originally scheduled for Wednesday after Dr. Olivas talked to her but daughter was concerned about a perforation so now she doesn't want it Will have Dr. Astorga talk to her about it Low BP has caused a little bit more fatigue and early fatigue with therapy Holding Norvasc due to low BP Legs wrapping with Michel wraps are helpful Overall very difficult to continue strengthening due to advanced age and severe weakness Conferred with RN Checked meds and labs Reviewed therapy notes Review of Systems General: Fatigue, Malaise Objective Exam Vital Signs Vital Signs Date Time Temp Pulse Resp B/P (MAP) Pulse Ox O2 Delivery O2 Flow Rate FiO2 10/11/19 20:00 Room Air 10/11/19 18:00 37.1 77 18 123/60 (81) 94 10/07/19 16:00 Capillary Refill : Less Than 3 Seconds General Appearance: No Apparent Distress, WD/WN, Anxious, Chronically ill, Obese HEENT: PERRL/EOMI, Normal ENT Inspection, Pharynx Normal Neck: Full Range of Motion, Normal Inspection, Non Tender, Supple, Carotid Bruit Respiratory: Chest Non Tender, Lungs Clear, Normal Breath Sounds, No Accessory Muscle Use, No Respiratory Distress Cardiovascular: Regular Rate, Rhythm, No Edema, No Gallop, No JVD, No Murmur, Normal Peripheral Pulses Gastrointestinal: Normal Bowel Sounds, No Organomegaly, No Pulsatile Mass, Non Tender, Soft Back: Normal Inspection, No CVA Tenderness, No Vertebral Tenderness Extremity: Normal Capillary Refill, Normal Inspection, Normal Range of Motion, Non Tender, No Calf Tenderness, No Pedal Edema Neurologic/Psychiatric: Alert, Oriented x3, No Motor/Sensory Deficits, Normal Mood/Affect, 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 FIM Transfers Therapy Code Descriptions/Definitions Functional [place] Measure: 0=Not Assessed/NA 4=Minimal Assistance 1=Total Assistance 5=Supervision or Setup 2=Maximal Assistance 6=Modified [place] 3=Moderate Assistance 7=Complete IndependenceSCALE: Activities may be completed with or without assistive devices. 4-Hgufmjsnpo-xlrruro completes the activity by him/herself with no assistance from a helper. 5-Set-up or Clean-up Assistance-helper sets up or cleans up; patient completes activity. Tunas assists only prior to or following the activity. 4-Supervision or Touching Assistance-helper provides verbal cues and/or touching/steadying and/or contact guard assistance as patient completes activity. Assistance may be provided throughout the activity or intermittently. 3-Partial/Moderate Assistance-helper does LESS THAN HALF the effort. Tunas lifts, holds or supports trunk or limbs, but provides less than half the effort. 2-Substantial/Maximal Assistance-helper does MORE THAN HALF the effort. Tunas lifts or holds trunk or limbs and provides more than half the effort. 7-Xtjoqwemi-iarajv does ALL the effort. Patient does none of the effort to co mplete the activity. Or, the assistance of 2 or more helpers is required for the patient to complete the activity. If activity was not attempted, code reason: 7-Patient Refused. 9-Not Applicable-not attempted and the patient did not perform the activity before the current illness, exacerbation or injury. 10-Not Attempted due to Environmental Limitations-(lack of equipment, weather restraints, etc.). 88-Not Attempted due to Medical Conditions or Safety Concerns. Roll Left to Right (QC): 6 Sit to Lying (QC): 6 Sit to Stand (QC): 5 Chair/Gda-us-Balre Xfer(QC): 5 Car Transfer (QC): 5 Gait Training Does the Patient Walk?: Yes Distance: 150 x5 Walk 10 feet (QC): 5 Walk 50 ft with 2 Turns(QC): 5 Walk 150 ft (QC): 5 Walking 10ft/uneven surface-QC: 3 Gait Persons Needed: 1 Gait Assistive Device: Walker 4 Wheeled Wheelchair Training Does the Pt Use a Wheelchair?: No Wheel 50 ft with 2 turns (QC): 9 Wheel 150 ft (QC): 9 Stair Training 1 Step (curb) (QC): 4 4 Steps (QC): 88 12 Steps (QC): 88 Balance Picking up an Object (QC): 88 (NT due to poor strength) ADL-Treatment Eating (QC): 6 (Pt reports being able to cut food and bring food to her mouth this AM. ) Oral Hygiene (QC): 5 (standing at sink) Shower/Bathe Self (QC): 3 (Bathing completed while seated on shower bench and using hand held shower and long handled sponge. Pt able to wash all areas, but requires min assist to dry feet.) Upper Body Dressing (QC): 5 (Dons pullover dress with set up) Lower Body Dressing (QC): 4 (Pt donned Depends with SBA using dressing stick. Verbal cues for use of adaptive equipment. Stood with supervision for balance during pant hike) On/Off Footwear (QC): 3 (Pt able to doff gripper socks using dressing stick. Pt then handed sock aide to don gripper socks, she states "I don't remember how to use this", requiring mod verbal cues for task, and assistance with pulling sock the rest of the way up once onto foot.) Toileting Hygiene (QC): 5 Toilet Transfer (QC): 5 Assessment/Plan Assessment and Plan Assess & Plan/Chief Complaint Assessment: Debility Severe weakness Near syncope HTN GERD Glaucoma Gastroparesis Edema legs Constipation resolved 10/07/19 Nocturia Plan: IRF protocol Home meds Monitor BP MICHEL wraps to legs BM treatment change to prn now Increase ADL's Change time of Coreg in case that is causing nocturia 10/09/19: Check urine sample with an in & out cath Schedule Reglan twice daily Monitor patient progress closely may need swing bed afterwards or to replace the structure therapy program 10/10/19: Continue bowel regimen Consult for abdominal pain and CT scan abnormality Continue therapy patient much improved today 10/11/19: Colonoscopy was originally scheduled with Dr. Astorga upon Dr. Alicea's request but daughter told her that she was fearful of a perforation so she doesn't want the Colonoscopy now Monitor low blood pressure it seems to be causing some fatigue Continue leg wraps with michel wraps (1) Debility (2) Weakness generalized Status: Acute (3) Transient hypotension Status: Acute (4) Near syncope Status: Acute (5) Microcytic anemia Status: Acute (6) HTN (hypertension) Status: Acute (7) Dyspnea on exertion Status: Acute MARKO ANDERS DO Oct 11, 2019 08:51
--- NOTE | 2019-10-11 11:09 | Occupational Ther Daily Note ---
OT Current Status-Daily Note Subjective Pt agreeable to treatment, has no c/o pain, but reports being tired today. ADL-Treatment Pt in restroom when therapist arrives. Toilet transfer and toileting completed with set up. Stood at sink to wash hands, comb hair, and brush teeth with set up. Seated rest break taken after completion. Pt declined shower today, but requests to change clothes. Pt donned gown with set up. Pt requests to wash clothes. Gait to laundry room with 4WW without LOB. Pt placed clothing and soap in washer with SBA. Required assist to manage settings on washer. Pt returned to laundry room later in session and was able to remove clothing from washer and place in dryer with SBA. Therapy Code Descriptions/Definitions Functional [place] Measure: 0=Not Assessed/NA 4=Minimal Assistance 1=Total Assistance 5=Supervision or Setup 2=Maximal Assistance 6=Modified [place] 3=Moderate Assistance 7=Complete IndependenceSCALE: Activities may be completed with or without assistive devices. 9-Kobpsjvksw-lauxmgj completes the activity by him/herself with no assistance from a helper. 5-Set-up or Clean-up Assistance-helper sets up or cleans up; patient completes activity. Peggs assists only prior to or following the activity. 4-Supervision or Touching Assistance-helper provides verbal cues and/or touching/steadying and/or contact guard assistance as patient completes activity. Assistance may be provided throughout the activity or intermittently. 3-Partial/Moderate Assistance-helper does LESS THAN HALF the effort. Peggs lifts, holds or supports trunk or limbs, but provides less than half the effort. 2-Substantial/Maximal Assistance-helper does MORE THAN HALF the effort. Peggs lifts or holds trunk or limbs and provides more than half the effort. 6-Skcbqyhlv-ghggxe does ALL the effort. Patient does none of the effort to complete the activity. Or, the assistance of 2 or more helpers is required for the patient to complete the activity. If activity was not attempted, code reason: 7-Patient Refused. 9-Not Applicable-not attempted and the patient did not perform the activity before the current illness, exacerbation or injury. 10-Not Attempted due to Environmental Limitations-(lack of equipment, weather restraints, etc.). 88-Not Attempted due to Medical Conditions or Safety Concerns. Oral Hygiene (QC): 5 Upper Body Dressing (QC): 5 Toileting Hygiene (QC): 5 Toilet Transfer (QC): 5 Other Treatment Gait to therapy gym with 4WW. Arm bike x15 minutes to increase overall strength and activity tolerance needed for functional task completion. Pt completed task with mild resistance and slow pace. Two rest breaks taken. Putty activity with bilateral hands to increase strength and manipulation skills. Pt able to remove small beads from moderate resistance putty without assist. Arm arc activity completed while standing to promote reaching and standing balance. Task completed without LOB. Graded clothespins task with bilateral hands to increase loftsman/pinch strength. Pt completed standing bob bag toss with bilateral UE to increase standing balance and activity tolerance. Pt has no LOB during activity. One seated rest break taken during task. Pt reports fatigue. Returned to room with 4WW, SBA. Transfer to chair with needs met after session. OT Short Term Goals Short Term Goals Time Frame: Oct 11, 2019 Toileting hygiene: 4 Lower body dressin OT Detention Goals Aerosol Supervisor Goals Time Frame: Oct 25, 2019 Eating (QC): 6 Oral Hygiene (QC): 6 Toileting Hygiene (QC): 6 Shower/Bathe Self (QC): 5 Upper Body Dressing (QC): 6 Lower Body Dressing (QC): 6 On/Off Footwear (QC): 5 Additional Goals: 1-Demonstrate ADL Tasks, 2-Verbalize Understanding, 3- ImproveStrength/Jasper 1=Demonstrate adherence to instructed precautions during ADL tasks. 2=Patient will verbalize/demonstrate understanding of assistive devices/modifications for ADL. 3=Patient will improve strength/tolerance for activity to enable patient to perform ADL's. OT Education/Plan Discharge Recommendations Plan/Recommendations: Continue POC Treatment Plan/Plan of Care Patient would benefit from OT for education, treatment and training to promote independence in ADL's, mobility, safety and/or upper extremity function for ADL's. Plan of Care: ADL Retraining, Functional Mobility, Group Exercise/Act as Ind, UE Funct Exercise/Act Treatment Duration: Oct 25, 2019 Frequency: At least 5 of 7 days/Wk (IRF) Estimated Hrs Per Day: 1.5 hours per day Agreement: Yes Rehab Potential: Fair Time/GCodes Start Time: 09:15 Stop Time: 10:45 Total Time Billed (hr/min): 90 Billed Treatment Time 1 visit, ADLx2(30minutes), EXx2(30minutes), FAx2(30minutes) HEATHER ZARAGOZA OT Oct 11, 2019 11:09
--- NOTE | 2019-10-11 12:22 | Physical Therapy Daily Note ---
PT Daily Note-Current Subjective Pt sitting in recliner upon arrival. Pt reports feeling very tired. " I feel like a balloon that that the air has been let out of. I feel very drowsy and just off from my normal." PT takes BP to start Rx 96/40 & Pulse 58 with O2 at 96%. Nurse notified. Pain Location: No Pain Reported Mental Status Patient Orientation: Person, Place, Situation Transfers SCALE: Activities may be completed with or without assistive devices. 2-Ikwlquuhhe-lhhdoza completes the activity by him/herself with no assistance from a helper. 5-Set-up or Clean-up Assistance-helper sets up or cleans up; patient completes activity. [place] assists only prior to or following the activity. 4-Supervision or Touching Assistance-helper provides verbal cues and/or touching/steadying and/or contact guard assistance as patient completes activity. Assistance may be provided throughout the activity or intermittently. 3-Partial/Moderate Assistance-helper does LESS THAN HALF the effort. [place] lifts, holds or supports trunk or limbs, but provides less than half the effort. 2-Substantial/Maximal Assistance-helper does MORE THAN HALF the effort. [place] lifts or holds trunk or limbs and provides more than half the effort. 9-Xrrxfrndy-svhrcy does ALL the effort. Patient does none of the effort to complete the activity. Or, the assistance of 2 or more helpers is required for the patient to complete the activity. If activity was not attempted, code reason: 7-Patient Refused. 9-Not Applicable-not attempted and the patient did not perform the activity before the current illness, exacerbation or injury. 10-Not Attempted due to Environmental Limitations-(lack of equipment, weather restraints, etc.). 88-Not Attempted due to Medical Conditions or Safety Concerns. Sit to Stand (QC): 5 Weight Bearing Full Weight Bearing Full Weight Bearing Exercises Seated Therapy Exercises: Ankle pumps, Sit to stand (5 attempts), Long arc quads, Hip flexion, Kicking activity, Glut set Seated Reps: 15 Treatments Pt's BP is continued to be monitored throughout Rx. 2nd attempt:104/63 with pulse of 60. Pt wants it taken in L arm not R to see if different. 111/53, pulse 59. Pt completes Seated Ex with several RB throughout. Pt attempts 5 sit to stands. BP in L arm 108/54 with pulse 57 after sitting. Nurse notified of how Rx went and pt rests at end of Rx with all needs met, call light in hand. Assessment Pt able to performs Ex with little difficulty but continues to reports not feeling well, very groggy. PT Short Term Goals Short Term Goals Time Frame: Oct 11, 2019 Roll Left & Right: 6 Sit to lyin Lying to sitting on side of be: 4 Sit to stand: 4 Chair/irv-sr-qbldb transfer: 4 Walk 10 feet: 4 Walk 50 feet with two turns: 4 Walk 150 feet: 4 PT Heel [place] Goals Group Home Goals PT Heel [place] Goals Time Frame: Oct 25, 2019 Roll Left & Right (QC): 6 Sit to Lying (QC): 6 Lying-Sitting on Side/Bed(QC): 6 Sit to Stand (QC): 6 Chair/Xzj-px-Uuaus Xfer(QC): 6 Toilet Transfer (QC): 6 Car Transfer (QC): 6 Does the Patient Walk: Yes Walk 10 feet (QC): 6 Walk 50ft with 2 Turns (QC): 6 Walk 150 ft (QC): 6 Walking 10ft on Uneven Surface: 6 1 Step (curb) (QC): 4 4 Steps (QC): 4 12 Steps (QC): 88 Picking up an Object (QC): 4 Does the Pt use WC or Scooter?: No Wheel 50 feet with 2 turns (QC: 9 Wheel 150 feet: 9 PT Plan Problem List Problem List: Activity Tolerance, Functional Strength, Safety Treatment/Plan Treatment Plan: Continue Plan of Care Treatment Plan: Bed Mobility, Education, Functional Activity [place], Functional Strength, Group Therapy, Gait, Safety, Therapeutic Exercise, Transfers Treatment Duration: Oct 25, 2019 Frequency: At least 5 of 7 days/Wk (IRF) Estimated Hrs Per Day: 1.5 hours per day Patient and/or Family Agrees t: Yes Safety Risks/Education Patient Education: Transfer Techniques, Correct Positioning, Safety Issues Teaching Recipient: Patient Teaching Methods: Discussion Response to Teaching: Verbalize Understanding Time/GCodes Time In: 1045 Time Out: 1145 Total Billed Treatment Time: 60 Total Billed Treatment 1, EX x2 (30m) & FA x2 (30m) JAZMIN RODRÍGUEZ PALEONTOLOGICAL HELPER Oct 11, 2019 12:22
--- NOTE | 2019-10-11 14:33 | Physical Therapy Daily Note ---
PT Daily Note-Current Subjective Pt sitting asleep in recliner upon arrival. Pt again reports not feeling well but is willing to try to do something for Therapy. Pain Location: No Pain Reported Mental Status Patient Orientation: Person, Place, Situation Transfers SCALE: Activities may be completed with or without assistive devices. 6-Qwaxpxhruy-xerzafj completes the activity by him/herself with no assistance from a helper. 5-Set-up or Clean-up Assistance-helper sets up or cleans up; patient completes activity. [place] assists only prior to or following the activity. 4-Supervision or Touching Assistance-helper provides verbal cues and/or touching/steadying and/or contact guard assistance as patient completes activity. Assistance may be provided throughout the activity or intermittently. 3-Partial/Moderate Assistance-helper does LESS THAN HALF the effort. [place] lifts, holds or supports trunk or limbs, but provides less than half the effort. 2-Substantial/Maximal Assistance-helper does MORE THAN HALF the effort. [place] lifts or holds trunk or limbs and provides more than half the effort. 3-Eutoyzrtn-bmiylc does ALL the effort. Patient does none of the effort to complete the activity. Or, the assistance of 2 or more helpers is required for the patient to complete the activity. If activity was not attempted, code reason: 7-Patient Refused. 9-Not Applicable-not attempted and the patient did not perform the activity before the current illness, exacerbation or injury. 10-Not Attempted due to Environmental Limitations-(lack of equipment, weather restraints, etc.). 88-Not Attempted due to Medical Conditions or Safety Concerns. Sit to Stand (QC): 5 Weight Bearing Full Weight Bearing Full Weight Bearing Gait Training Does the Patient Walk?: Yes Distance: 75' x5 Walk 10 feet (QC): 5 Walk 50 ft with 2 Turns(QC): 5 Walk 150 ft (QC): 5 Gait Persons Needed: 1 Gait Assistive Device: Walker 4 Wheeled Wheelchair Training Does the Pt Use a Wheelchair?: No Treatments Pt transfers to standing from recliner. Pt ambulates in hallway using 4WW, taking several RB as needed. Pt returns to room to use restroom then rest. Pt resting Supine in bed at end of Rx with all needs met, call light in hand. Assessment Current Status: Fair Progress Pt reports feeling more fatigued today than previous Rx. PT Short Term Goals Short Term Goals Time Frame: Oct 11, 2019 Roll Left & Right: 6 Sit to lyin Lying to sitting on side of be: 4 Sit to stand: 4 Chair/kam-ou-hwlqt transfer: 4 Walk 10 feet: 4 Walk 50 feet with two turns: 4 Walk 150 feet: 4 PT Turbinated Bone Grinder Goals Turbinated Bone Grinder Goals PT Turbinated Bone Grinder Goals Time Frame: Oct 25, 2019 Roll Left & Right (QC): 6 Sit to Lying (QC): 6 Lying-Sitting on Side/Bed(QC): 6 Sit to Stand (QC): 6 Chair/Zjf-fn-Suqmd Xfer(QC): 6 Toilet Transfer (QC): 6 Car Transfer (QC): 6 Does the Patient Walk: Yes Walk 10 feet (QC): 6 Walk 50ft with 2 Turns (QC): 6 Walk 150 ft (QC): 6 Walking 10ft on Uneven Surface: 6 1 Step (curb) (QC): 4 4 Steps (QC): 4 12 Steps (QC): 88 Picking up an Object (QC): 4 Does the Pt use WC or Scooter?: No Wheel 50 feet with 2 turns (QC: 9 Wheel 150 feet: 9 PT Plan Problem List Problem List: Activity Tolerance, Functional Strength, Safety, Gait Treatment/Plan Treatment Plan: Continue Plan of Care Treatment Plan: Bed Mobility, Education, Functional Activity [place], Functional Strength, Group Therapy, Gait, Safety, Therapeutic Exercise, Transfers Treatment Duration: Oct 25, 2019 Frequency: At least 5 of 7 days/Wk (IRF) Estimated Hrs Per Day: 1.5 hours per day Patient and/or Family Agrees t: Yes Safety Risks/Education Patient Education: Gait Training, Correct Positioning, Safety Issues Teaching Recipient: Patient Teaching Methods: Discussion Response to Teaching: Verbalize Understanding Time/GCodes Time In: 1345 Time Out: 1415 Total Billed Treatment Time: 30 Total Billed Treatment 1, GT (20m) & FA (10m) JAZMIN RODRÍGUEZ PTA Oct 11, 2019 14:33
--- NOTE | 2019-10-11 14:48 | Progress Note - Cardiology ---
Cardiology SOAP Progress Note Subjective: No cp or palp or syncope or shortness of breath at rest Gen weakness No n/v/d Objective: I&O/Vital Signs 10/11/19 10/11/19 06:07 08:10 Temp 36.5 Pulse 73 Resp 20 B/P (MAP) 155/68 (97) Pulse Ox 94 O2 Delivery Room Air Room Air 10/10/19 23:59 Intake Total 1050 ml Balance 1050 ml Weight (Pounds): 188 Weight (Ounces): 1.6 Weight (Calculated Kilograms): [id number] Constitutional: AAO x 3, PERRL, well-developed, well-nourished Respiratory: chest is bilaterally symmetric, lungs clear to auscultation Cardiovascular: regular rate-rhythm, S1 and S2; No diastolic murmur, No systolic murmur Gastrointestional: soft, audible bowel sounds Extremities: normal range of motion, non-tender, normal inspection, no lower extremity edema bilateral Neurologic/Psychiatric: no motor/sensory deficits, alert, normal mood/affect, o riented x 3 Skin: normal color, warm/dry A/P: Assessment: Gen weakness and debility Diverticulitis - Medical services managing Echocardiogram of October 03, [address] Zamudio showed moderate LVH. LA mod dilated. Mitral valve calcification. Mod TR. PASP 45-50mmHg Acute on chronic mild diastolic congestive heart failure - clinically compensated MPI of October 03, [address] Zamudio showed no evidence of ischemia or infarction Labile HTN Plan: Reduce Norvasc further to allow room for BID dosing of Coreg Monitor labs from time to time MUSA SOUTH MD FACP FACC CCDS Oct 11, 2019 14:47
--- NOTE | 2019-10-11 16:22 | Progress Note - Surgery ---
Subjective Time Seen by a Provider: 15:26 Subjective/Events-last exam Pt seen and examined. She states after talking with her daughter she thinks she wants to skip the colonoscopy; may still want to do the EGD. Her concern is that her BP dropped low today and she felt like she was going to pass out; which makes her concerned about anesthesia. Review of Systems General: Fatigue Pulmonary: No Dyspnea, No Cough Cardiovascular: No: Chest Pain Gastrointestinal: No: Nausea, Vomiting, Abdominal Pain Objective Exam Vital Signs Date Time Temp Pulse Resp B/P (MAP) Pulse Ox O2 Delivery O2 Flow Rate FiO2 10/11/19 08:10 Room Air 10/11/19 06:07 36.5 73 20 155/68 (97) 94 Room Air 10/10/19 21:00 93 Room Air 10/10/19 16:36 36.5 64 20 137/60 (85) 97 Room Air I & O 10/11/19 07:00 Intake Total 1850 ml Balance 1850 ml Capillary Refill : Less Than 3 Seconds General Appearance: No Apparent Distress, Chronically ill, Obese HEENT: PERRL/EOMI, Pharynx Normal Respiratory: Chest Non Tender, Lungs Clear, Normal Breath Sounds, No Accessory Muscle Use, No Respiratory Distress Cardiovascular: Regular Rate, Rhythm, No JVD, No Murmur Gastrointestinal: soft, no organomegaly, no pulsatile mass Extremity: No Calf Tenderness, No Pedal Edema Neurologic/Psychiatric: Alert, Oriented x3, No Motor/Sensory Deficits, Normal Mood/Affect, commercial assistant II-XII Norm as Tested, Abnormal Gait, Motor Weakness (generalized weakness all extremities) Skin: Normal Color, Warm/Dry Assessment/Plan Assessment/Plan Assessment/Plan Rectal bleed Diverticulitis vs. Diverticulosis Abd pain - RUQ Pt does not want a colonoscopy because she had one and is concerned about perforation. In addition she no states the CT showed something in her RUQ and would possibly an EGD. I have not been able to look at CT abd/pelvis from [place]; to determine what exactly is going on, still trying. It might be best to do the EGD as an outpt if she is now hypotensive. She is not anemic and not really having GERD symptoms, but still may benefit from an EGD because of the RUQ and hx of ulcers. I still could do an EGD on Wednesday, she does not need to prep for that. Clinical Quality Measures DVT/VTE Risk/Contraindication: Risk Factor Score Per Nursin RFS Level Per Nursing on Admit: 4+=Very High KALEY JEWELL DO Oct 11, 2019 16:22
[2019-10-11 18:00] VITALS: BP 123/60
[2019-10-11] MEDS: PANTOPRAZOLE 40 MG (PROTONIX) TAB PO SCH (18:22)
[2019-10-11] MEDS: MIRTAZAPINE 15 MG (REMERON) TAB PO SCH (20:57)
[2019-10-11] MEDS: ALPRAZolam 0.25 MG (XANAX) TAB PO PRN (20:57)
[2019-10-12 05:44] VITALS: BP 166/76
--- NOTE | 2019-10-12 06:26 | PM&R Progress Note ---
Subjective HPI/CC On Admission Date Seen by Provider: Oct 12, 2019 Time Seen by Provider: 09:45 Subjective/Events-last exam Talked about her variability with her BP levels a lot Refused Norvasc last night because she thought it would be too too low to be taking it and it would be too low for her to participate in therapy today Anxious about her BP levels Bowels moved yesterday Still refuses colonoscopy Conferred with RN Checked meds and labs Reviewed therapy notes Review of Systems General: Fatigue, Malaise Neurological: Weakness Objective Exam Vital Signs Vital Signs Date Time Temp Pulse Resp B/P (MAP) Pulse Ox O2 Delivery O2 Flow Rate FiO2 10/12/19 20:00 Room Air 10/12/19 17:42 36.6 65 18 140/63 (88) 95 10/07/19 16:00 Capillary Refill : Less Than 3 Seconds General Appearance: No Apparent Distress, WD/WN, Anxious, Chronically ill, Obese HEENT: PERRL/EOMI, Normal ENT Inspection, Pharynx Normal Neck: Full Range of Motion, Normal Inspection, Non Tender, Supple, Carotid Bruit Respiratory: Chest Non Tender, Lungs Clear, Normal Breath Sounds, No Accessory Muscle Use, No Respiratory Distress Cardiovascular: Regular Rate, Rhythm, No Edema, No Gallop, No JVD, No Murmur, Normal Peripheral Pulses Gastrointestinal: Normal Bowel Sounds, No Organomegaly, No Pulsatile Mass, Non Tender, Soft Back: Normal Inspection, No CVA Tenderness, No Vertebral Tenderness Extremity: Normal Capillary Refill, Normal Inspection, Normal Range of Motion, Non Tender, No Calf Tenderness, No Pedal Edema Neurologic/Psychiatric: Alert, Oriented x3, No Motor/Sensory Deficits, Normal Mood/Affect, allocations clerk II-XII Norm as Tested, Abnormal Gait, Motor Weakness (generalized weakness all extremities) Skin: Normal Color, Warm/Dry Lymphatic: No Adenopathy Results/Procedures Lab Patient resulted labs reviewed. FIM Transfers Therapy Code Descriptions/Definitions Functional [place] Measure: 0=Not Assessed/NA 4=Minimal Assistance 1=Total Assistance 5=Supervision or Setup 2=Maximal Assistance 6=Modified [place] 3=Moderate Assistance 7=Complete IndependenceSCALE: Activities may be completed with or without assistive devices. 0-Jpmkrgurqc-wpvkxpz completes the activity by him/herself with no assistance from a helper. 5-Set-up or Clean-up Assistance-helper sets up or cleans up; patient completes activity. [place] assists only prior to or following the activity. 4-Supervision or Touching Assistance-helper provides verbal cues and/or touchi ng/steadying and/or contact guard assistance as patient completes activity. Assistance may be provided throughout the activity or intermittently. 3-Partial/Moderate Assistance-helper does LESS THAN HALF the effort. [place] lifts, holds or supports trunk or limbs, but provides less than half the effort. 2-Substantial/Maximal Assistance-helper does MORE THAN HALF the effort. [place] lifts or holds trunk or limbs and provides more than half the effort. 3-Ucgdnzmjj-zsobyl does ALL the effort. Patient does none of the effort to complete the activity. Or, the assistance of 2 or more helpers is required for the patient to complete the activity. If activity was not attempted, code reason: 7-Patient Refused. 9-Not Applicable-not attempted and the patient did not perform the activity before the current illness, exacerbation or injury. 10-Not Attempted due to Environmental Limitations-(lack of equipment, weather restraints, etc.). 88-Not Attempted due to Medical Conditions or Safety Concerns. Roll Left to Right (QC): 6 Sit to Lying (QC): 6 Sit to Stand (QC): 5 Chair/Ykj-bb-Vrjho Xfer(QC): 5 Car Transfer (QC): 5 Gait Training Does the Patient Walk?: Yes Distance: 75' x5 Walk 10 feet (QC): 5 Walk 50 ft with 2 Turns(QC): 5 Walk 150 ft (QC): 5 Walking 10ft/uneven surface-QC: 3 Gait Persons Needed: 1 Gait Assistive Device: Walker 4 Wheeled Wheelchair Training Does the Pt Use a Wheelchair?: No Wheel 50 ft with 2 turns (QC): 9 Wheel 150 ft (QC): 9 Stair Training 1 Step (curb) (QC): 4 4 Steps (QC): 88 12 Steps (QC): 88 Balance Picking up an Object (QC): 88 (NT due to poor strength) ADL-Treatment Eating (QC): 6 (Pt reports being able to cut food and bring food to her mouth this AM. ) Oral Hygiene (QC): 5 Shower/Bathe Self (QC): 3 (Bathing completed while seated on shower bench and using hand held shower and long handled sponge. Pt able to wash all areas, but requires min assist to dry feet.) Upper Body Dressing (QC): 5 Lower Body Dressing (QC): 4 (Pt donned Depends with SBA using dressing stick. Verbal cues for use of adaptive equipment. Stood with supervision for balance during pant hike) On/Off Footwear (QC): 3 (Pt able to doff gripper socks using dressing stick. Pt then handed sock aide to don gripper socks, she states "I don't remember how to use this", requiring mod verbal cues for task, and assistance with pulling sock the rest of the way up once onto foot.) Toileting Hygiene (QC): 5 Toilet Transfer (QC): 5 Assessment/Plan Assessment and Plan Assess & Plan/Chief Complaint Assessment: Debility Severe weakness Near syncope HTN GERD Glaucoma Gastroparesis Edema legs Constipation resolved 10/07/19 Nocturia Plan: IRF protocol Home meds Monitor BP PRINCESS wraps to legs BM treatment change to prn now Increase ADL's Change time of Coreg in case that is causing nocturia 10/09/19: Check urine sample with an in & out cath Schedule Reglan twice daily Monitor patient progress closely may need swing bed afterwards or to replace the structure therapy program 10/10/19: Continue bowel regimen Consult for abdominal pain and CT scan abnormality Continue therapy patient much improved today 10/11/19: Colonoscopy was originally scheduled with Dr. Astorga upon Dr. Alicea's request but daughter told her that she was fearful of a perforation so she doesn't want the Colonoscopy now Monitor low blood pressure it seems to be causing some fatigue Continue leg wraps with princess wraps 10/12/19: Monitor blood pressure closely but she does have a lot of variability of which would be impossible to completely resolve while in in-patient rehab Avoid Hypotension Monitor bowel function and abdominal pain Colonoscopy is in out-patient as long as she doesn't fear perforation (1) Debility (2) Weakness generalized Status: Acute (3) Transient hypotension Status: Acute (4) Near syncope Status: Acute (5) Microcytic anemia Status: Acute (6) HTN (hypertension) Status: Acute (7) Dyspnea on exertion Status: Acute MARKO ANDERS DO Oct 12, 2019 06:26
[2019-10-12] MEDS: ASPIRIN E.C. 81 MG (ECOTRIN) TAB PO SCH (07:40)
[2019-10-12] MEDS: SENNA W/DOCUSATE (SENOKOT S) TABLET PO SCH ×2 (07:40→21:44)
[2019-10-12] MEDS: polyethylene glycoL POWDER 17 GM (MIRALAX) PACK PO SCH ×2 (07:41→21:54)
[2019-10-12] MEDS: lisINopril 40 MG (PRINIVIL) TABLET PO SCH (07:41)
[2019-10-12] MEDS: CARVEDILOL 12.5 MG (COREG) TABLET PO SCH ×2 (07:41→21:44)
[2019-10-12] MEDS: amLODIPine 5 MG (NORVASC) TAB PO SCH (07:41)
[2019-10-12] MEDS: DOCUSATE SODIUM 100 MG (COLACE) CAP PO SCH ×2 (07:41→21:44)
[2019-10-12] MEDS: METOCLOPRAMIDE 5 MG (REGLAN) TAB PO SCH ×2 (07:41→21:44)
[2019-10-12] MEDS: MICONAZOLE 2% POWDER (DESENEX AF) 90 GM TOP SCH ×2 (07:42→20:52)
[2019-10-12] MEDS: BRIMONIDINE 0.2% (ALPHAGAN) OPHTH SOLN 5 ML BTL OS SCH ×3 (07:43→20:53)
[2019-10-12] MEDS: MICONAZOLE NITRATE 2% CRM 30 GM TP SCH ×2 (07:43→20:53)
[2019-10-12] MEDS: TIMOLOL MALEATE 0.5% 5 ML (TIMOPTIC) BTL OS SCH ×2 (07:43→20:53)
--- NOTE | 2019-10-12 08:27 | Occupational Ther Daily Note ---
OT Current Status-Daily Note Subjective Pt seated in recliner, agreeable to OT Tx. Pt did not report any pain during session. She hopes today is a better day. ADL-Treatment Therapy Code Descriptions/Definitions Functional [place] Measure: 0=Not Assessed/NA 4=Minimal Assistance 1=Total Assistance 5=Supervision or Setup 2=Maximal Assistance 6=Modified [place] 3=Moderate Assistance 7=Complete IndependenceSCALE: Activities may be completed with or without assistive devices. 5-Nxqispqbio-mfzzcer completes the activity by him/herself with no assistance from a helper. 5-Set-up or Clean-up Assistance-helper sets up or cleans up; patient completes activity. [place] assists only prior to or following the activity. 4-Supervision or Touching Assistance-helper provides verbal cues and/or touching/steadying and/or contact guard assistance as patient completes activi ty. Assistance may be provided throughout the activity or intermittently. 3-Partial/Moderate Assistance-helper does LESS THAN HALF the effort. [place] lifts, holds or supports trunk or limbs, but provides less than half the effort. 2-Substantial/Maximal Assistance-helper does MORE THAN HALF the effort. [place] lifts or holds trunk or limbs and provides more than half the effort. 6-Xosvtxfnn-fgptiv does ALL the effort. Patient does none of the effort to complete the activity. Or, the assistance of 2 or more helpers is required for the patient to complete the activity. If activity was not attempted, code reason: 7-Patient Refused. 9-Not Applicable-not attempted and the patient did not perform the activity before the current illness, exacerbation or injury. 10-Not Attempted due to Environmental Limitations-(lack of equipment, weather restraints, etc.). 88-Not Attempted due to Medical Conditions or Safety Concerns. Oral Hygiene (QC): 6 (IND standing at sink) Shower/Bathe Self (QC): 7 (pt declined bathing today.) Upper Body Dressing (QC): 6 (Pt able to use 4WW to gather dress from her closet, returned to her recliner to don dress.) Lower Body Dressing (QC): 7 (Pt declined changing her brief, she reports having changed it earlier this morning) Toileting Hygiene (QC): 6 (pt able to manage clothing and perform toilet hygiene) Toilet Transfer (QC): 6 (pt tranferred on/off BSC over toilet) Other Treatment Pt seated in recliner, ambulated to the restroom using 4WW to complete toileting , then stood at sink to brush her teeth, comb her hair, and wash her hands. Pt then gathered clothes from the closet and returned to the recliner to don dress. Pt took a seated rest break, then performed functional mobility to therapy gym using 4WW and SBA. In order to increase BUE strength and functional endurance, pt completed x15 mins on arm bike, min resistance with rest breaks as needed. In order to increase fine motor strength and functional endurance, pt placed 1" pegs into foam pegboard with 1lb wrist cuffs on each wrist, pt instructed to alternate hands with task, completing x100 pegs. Pt then completed theraputty task of removing beads in order to increase fine motor strength. After a short rest break, pt completed graded clothespins, placing/removing (1-5 lb clothespins) first with L hand, then with her right, completing task x2. Pt reports increased fatigue at end of session, requesting to return to her room. Pt used 4WW to return to her room, transferring to recliner. OT assisted pt with positioning with pillows and elevating foot rest. Post OT tx, pt in recliner, call light in reach and all needs met. Education OT Patient Education: Correct positioning, Energy conservation, Exercise program, Modified ADL techniques, Progress toward Goal/Update tx plan, Purpose of tx/functional activities, Transfer techniques Teaching Recipient: Patient Teaching Methods: Demonstration, Discussion Response to Teaching: Verbalize Understanding, Reinforcement Needed OT Short Term Goals Short Term Goals Time Frame: Oct 11, 2019 Toileting hygiene: 4 Lower body dressin OT Chcf Goals Chcf Goals Time Frame: Oct 25, 2019 Eating (QC): 6 Oral Hygiene (QC): 6 Toileting Hygiene (QC): 6 Shower/Bathe Self (QC): 5 Upper Body Dressing (QC): 6 Lower Body Dressing (QC): 6 On/Off Footwear (QC): 5 Additional Goals: 1-Demonstrate ADL Tasks, 2-Verbalize Understanding, 3-Imp roveStrength/[place] 1=Demonstrate adherence to instructed precautions during ADL tasks. 2=Patient will verbalize/demonstrate understanding of assistive devices/modifications for ADL. 3=Patient will improve strength/tolerance for activity to enable patient to perform ADL's. OT Education/Plan Problem List/Assessment Assessment: Decreased Activ Tolerance, Decreased UE Strength, Impaired I ADL's, Impaired Self-Care Skills Discharge Recommendations Plan/Recommendations: Continue POC Treatment Plan/Plan of Care Patient would benefit from OT for education, treatment and training to promote independence in ADL's, mobility, safety and/or upper extremity function for A DL's. Plan of Care: ADL Retraining, Functional Mobility, Group Exercise/Act as Ind, UE Funct Exercise/Act Treatment Duration: Oct 25, 2019 Frequency: At least 5 of 7 days/Wk (IRF) Estimated Hrs Per Day: 1.5 hours per day Agreement: Yes Rehab Potential: Fair Time/GCodes Start Time: 08:00 Stop Time: 09:30 Total Time Billed (hr/min): 90 Billed Treatment Time 1, ADL (15'), EX (20'), FA 4 (55') BOOM JUNIOR OT Oct 12, 2019 08:27
--- NOTE | 2019-10-12 11:51 | Physical Therapy Daily Note ---
PT Daily Note-Current Subjective Pt in recliner upon arrival and agrees to tx. Mental Status Patient Orientation: Person, Place, Time, Situation Transfers SCALE: Activities may be completed with or without assistive devices. 7-Tqkrxdxcsk-hemrvqv completes the activity by him/herself with no assistance from a helper. 5-Set-up or Clean-up Assistance-helper sets up or cleans up; patient completes activity. [place] assists only prior to or following the activity. 4-Supervision or Touching Assistance-helper provides verbal cues and/or touching/steadying and/or contact guard assistance as patient completes activity. Assistance may be provided throughout the activity or intermittently. 3-Partial/Moderate Assistance-helper does LESS THAN HALF the effort. [place] lifts, holds or supports trunk or limbs, but provides less than half the effort. 2-Substantial/Maximal Assistance-helper does MORE THAN HALF the effort. [place] lifts or holds trunk or limbs and provides more than half the effort. 0-Hfdjzpanp-uxubig does ALL the effort. Patient does none of the effort to complete the activity. Or, the assistance of 2 or more helpers is required for the patient to complete the activity. If activity was not attempted, code reason: 7-Patient Refused. 9-Not Applicable-not attempted and the patient did not perform the activity before the current illness, exacerbation or injury. 10-Not Attempted due to Environmental Limitations-(lack of equipment, weather restraints, etc.). 88-Not Attempted due to Medical Conditions or Safety Concerns. Sit to Stand (QC): 6 Toilet Transfer (QC): 6 Weight Bearing Full Weight Bearing Full Weight Bearing Gait Training Does the Patient Walk?: Yes Distance: 400 Walk 10 feet (QC): 6 Walk 50 ft with 2 Turns(QC): 6 Walk 150 ft (QC): 6 Gait Assistive Device: Walker 4 Wheeled Pt requires VC to keep 4WW close to her. Pt amb with wide NAIN, shuffling gait. Exercises Seated Therapy Exercises: Long arc quads, Glut set Seated Reps: 15 Standing: Hip Abduction, Hamstring curls, Heel/toe raises, Marching, Unilateral stance Standing Reps: 15 NuStep Minutes: 15 NuStep Workload: 5 Treatments Pt uses restroom followed by using NuStep in gym. Pt then performs standing e xercises at // bars and is followed by seated exercises. Pt amb in hallway on carpeted area, around unit, then returns to room. Pt returns to recliner and was left with all needs met, call light in hand. Assessment Current Status: Good Progress Pt requires few rest breaks throughout tx. Pt overall has increased strength, endurance, and balance. PT Short Term Goals Short Term Goals Time Frame: Oct 11, 2019 Roll Left & Right: 6 Sit to lyin Lying to sitting on side of be: 4 Sit to stand: 4 Chair/dxp-vr-rwiqb transfer: 4 Walk 10 feet: 4 Walk 50 feet with two turns: 4 Walk 150 feet: 4 PT Senior Living Goals Senior Living Goals PT Brass Chaser Goals Time Frame: Oct 25, 2019 Roll Left & Right (QC): 6 Sit to Lying (QC): 6 Lying-Sitting on Side/Bed(QC): 6 Sit to Stand (QC): 6 Chair/Efr-nh-Uztcc Xfer(QC): 6 Toilet Transfer (QC): 6 Car Transfer (QC): 6 Does the Patient Walk: Yes Walk 10 feet (QC): 6 Walk 50ft with 2 Turns (QC): 6 Walk 150 ft (QC): 6 Walking 10ft on Uneven Surface: 6 1 Step (curb) (QC): 4 4 Steps (QC): 4 12 Steps (QC): 88 Picking up an Object (QC): 4 Does the Pt use WC or Scooter?: No Wheel 50 feet with 2 turns (QC: 9 Wheel 150 feet: 9 PT Plan Problem List Problem List: Activity Tolerance Treatment/Plan Treatment Plan: Continue Plan of Care Treatment Plan: Bed Mobility, Education, Functional Activity [place], Functional Strength, Group Therapy, Gait, Safety, Therapeutic Exercise, Transfers Treatment Duration: Oct 25, 2019 Frequency: At least 5 of 7 days/Wk (IRF) Estimated Hrs Per Day: 1.5 hours per day Patient and/or Family Agrees t: Yes Safety Risks/Education Patient Education: Gait Training, Correct Positioning, Safety Issues Teaching Recipient: Patient Teaching Methods: Demonstration, Discussion Response to Teaching: Verbalize Understanding, Return Demonstration Time/GCodes Time In: 1045 Time Out: 1145 Total Billed Treatment Time: 60 Total Billed Treatment 1, Ex x2 (30m), GT (15m), FA (15m) JAZMIN RODRÍGUEZ BILINGUAL RESEARCH INTERVIEWER Oct 12, 2019 11:51
--- NOTE | 2019-10-12 13:02 | NUR ---
CM/SS PATIENT CARE CONFERENCE Reviewed Summary with patient and she is in agreement to tentative discharge date of 10/16/19, as long as her BP is controlled. She remains concerned about the fluctuation and low BP she experienced just yesterday. The team has recommended [facility] for RN/PT/OT as well as a dressing stick. Patient requests that home health services be arranged with [facility]. Discussed dressing stick that she is using here, patient understands that this is a private pay item and she indicates her son can assist her to get this item. Food Products Sales Representative will continue intermittent reviews and followup as appropriate. Addendum: 10/12/19 at 1330 by ALICIA CHRISTOPHER Spoke with patient's son Jose De Jesus Nicolas and [employer], they will get patient either a dressing stick or a hip kit that includes the dressing stick. They understand tentative discharge is set for Wednesday10/16/19. Jose De Jesus indicates they reside within 4 blocks of patient and that between him and his sister Tee they do well taking care of her.
--- NOTE | 2019-10-12 14:02 | Physical Therapy Daily Note ---
PT Daily Note-Current Subjective Pt in recliner upon arrival and agrees to tx. Mental Status Patient Orientation: Person, Place, Time, Situation Transfers SCALE: Activities may be completed with or without assistive devices. 1-Ripqbvshzx-rveczyv completes the activity by him/herself with no assistance from a helper. 5-Set-up or Clean-up Assistance-helper sets up or cleans up; patient completes activity. [place] assists only prior to or following the activity. 4-Supervision or Touching Assistance-helper provides verbal cues and/or touching/steadying and/or contact guard assistance as patient completes activity. Assistance may be provided throughout the activity or intermittently. 3-Partial/Moderate Assistance-helper does LESS THAN HALF the effort. [place] lifts, holds or supports trunk or limbs, but provides less than half the effort. 2-Substantial/Maximal Assistance-helper does MORE THAN HALF the effort. [place] lifts or holds trunk or limbs and provides more than half the effort. 0-Gzdmcoqiq-hvolds does ALL the effort. Patient does none of the effort to complete the activity. Or, the assistance of 2 or more helpers is required for the patient to complete the activity. If activity was not attempted, code reason: 7-Patient Refused. 9-Not Applicable-not attempted and the patient did not perform the activity before the current illness, exacerbation or injury. 10-Not Attempted due to Environmental Limitations-(lack of equipment, weather restraints, etc.). 88-Not Attempted due to Medical Conditions or Safety Concerns. Sit to Stand (QC): 6 Toilet Transfer (QC): 6 Car Transfer (QC): 6 Weight Bearing Full Weight Bearing Full Weight Bearing Gait Training Does the Patient Walk?: Yes Distance: 200 Walk 10 feet (QC): 5 Walk 50 ft with 2 Turns(QC): 5 Walk 150 ft (QC): 5 Gait Assistive Device: FWW Exercises Standing: Retro gait Treatments Pt uses restroom upon arrival. Pt amb to car and performs car transfer. Pt practices retro gait in hallway. Pt performs dynamic balance and coordination activity grabbing bob bags with nail artist. Pt returns to recliner at end of tx and was left with all needs met, call light in hand. Assessment Current Status: Good Progress Pt requires few rest breaks. Pt overall improved balance, strength, endurance, and safety. Pt requires VC to stay close to 4WW. PT Short Term Goals Short Term Goals Time Frame: Oct 11, 2019 Roll Left & Right: 6 Sit to lyin Lying to sitting on side of be: 4 Sit to stand: 4 Chair/ryx-af-kttge transfer: 4 Walk 10 feet: 4 Walk 50 feet with two turns: 4 Walk 150 feet: 4 PT Scallop Raker Goals Care Home Goals PT Scallop Raker Goals Time Frame: Oct 25, 2019 Roll Left & Right (QC): 6 Sit to Lying (QC): 6 Lying-Sitting on Side/Bed(QC): 6 Sit to Stand (QC): 6 Chair/Rzm-rq-Akmia Xfer(QC): 6 Toilet Transfer (QC): 6 Car Transfer (QC): 6 Does the Patient Walk: Yes Walk 10 feet (QC): 6 Walk 50ft with 2 Turns (QC): 6 Walk 150 ft (QC): 6 Walking 10ft on Uneven Surface: 6 1 Step (curb) (QC): 4 4 Steps (QC): 4 12 Steps (QC): 88 Picking up an Object (QC): 4 Does the Pt use WC or Scooter?: No Wheel 50 feet with 2 turns (QC: 9 Wheel 150 feet: 9 PT Plan Problem List Problem List: Activity Tolerance, Safety Treatment/Plan Treatment Plan: Continue Plan of Care Treatment Plan: Bed Mobility, Education, Functional Activity [place], Functional Strength, Group Therapy, Gait, Safety, Therapeutic Exercise, Transfers Treatment Duration: Oct 25, 2019 Frequency: At least 5 of 7 days/Wk (IRF) Estimated Hrs Per Day: 1.5 hours per day Patient and/or Family Agrees t: Yes Safety Risks/Education Patient Education: Gait Training, Correct Positioning, Safety Issues Teaching Recipient: Patient Teaching Methods: Demonstration, Discussion Response to Teaching: Verbalize Understanding, Return Demonstration Time/GCodes Time In: 1330 Time Out: 1400 Total Billed Treatment Time: 30 Total Billed Treatment 1, FA x2 JAZMIN RODRÍGUEZ PTA Oct 12, 2019 14:02
--- NOTE | 2019-10-12 14:39 | NUR ---
"RD ASSESSMENT PMHx: hypercholesterolemia; HTN; GERD; chronic constipation; diverticulosis; hiatal hernia; parathyroid disease PT INTERACTION: Pt was awake and pleasant during nutrition follow-up. Pt states she has been eating poorly since last assessment. Note avg PO intake 50-75% x4d, per chart review. Pt states no issues with nausea, vomiting, constipation, or diarrhea since last assessment. Note last BM was 10/10, and pt currently on bowel regimen of colace BID; senna BID; and miralax BID, per chart review. ABNORMAL NUTRITION-RELATED LAB VALUES LOW: Ca 8.2; Pro 5.7; alb 3.0 HIGH: Est. kcal needs: 1300 kcal | 15 kcal/kg Est. Pro needs: 70 g Pro | 0.8 g Pro/kg PES STATEMENT: Inadequate oral intake (NI-2.1) related to loss of appetite as evidenced by pt interview | avg PO intake 50-75% x4d INTERVENTION: Continue with current diet order of Regular diet. Pt may benefit from nutrition supplementation if PO intake declines. Encouraged pt to eat when able. Will continue to follow and reassess as pt needs, intake, and status change. MONITOR/EVALUATE: PO Intake; Plan of Care; Hydration Status; Weight Status; Lab Values Fátima Field, MS, RD, LD"
--- NOTE | 2019-10-12 15:45 | NUR ---
Initial visit made by JESSICA Cui. Doing well.
[2019-10-12] MEDS: LACTULOSE SYRUP 10GM/15ML (ENULOSE) 30ML UDC PO PRN (16:14)
--- NOTE | 2019-10-12 16:16 | NUR ---
LACTULOSE GIVEN PER PATIENT'S REQUEST.
[2019-10-12 17:42] VITALS: BP 140/63
[2019-10-12] MEDS: PANTOPRAZOLE 40 MG (PROTONIX) TAB PO SCH (18:33)
[2019-10-12] MEDS: MIRTAZAPINE 15 MG (REMERON) TAB PO SCH (21:44)
[2019-10-12] MEDS: ALPRAZolam 0.25 MG (XANAX) TAB PO PRN (21:44)
[2019-10-13 05:11] VITALS: BP 159/73
[2019-10-13] MEDS: ASPIRIN E.C. 81 MG (ECOTRIN) TAB PO SCH (08:52)
[2019-10-13] MEDS: lisINopril 40 MG (PRINIVIL) TABLET PO SCH (08:52)
[2019-10-13] MEDS: CARVEDILOL 12.5 MG (COREG) TABLET PO SCH ×2 (08:52→21:22)
[2019-10-13] MEDS: amLODIPine 5 MG (NORVASC) TAB PO SCH (08:52)
[2019-10-13] MEDS: METOCLOPRAMIDE 5 MG (REGLAN) TAB PO SCH ×2 (08:52→21:21)
[2019-10-13] MEDS: SENNA W/DOCUSATE (SENOKOT S) TABLET PO SCH ×2 (08:52→21:22)
[2019-10-13] MEDS: polyethylene glycoL POWDER 17 GM (MIRALAX) PACK PO SCH ×2 (08:52→21:46)
[2019-10-13] MEDS: DOCUSATE SODIUM 100 MG (COLACE) CAP PO SCH ×2 (08:52→21:22)
[2019-10-13] MEDS: MICONAZOLE NITRATE 2% CRM 30 GM TP SCH ×2 (08:54→21:27)
[2019-10-13] MEDS: TIMOLOL MALEATE 0.5% 5 ML (TIMOPTIC) BTL OS SCH ×2 (08:54→21:29)
[2019-10-13] MEDS: BRIMONIDINE 0.2% (ALPHAGAN) OPHTH SOLN 5 ML BTL OS SCH ×3 (08:54→21:25)
[2019-10-13] MEDS: MICONAZOLE 2% POWDER (DESENEX AF) 90 GM TOP SCH ×2 (08:54→21:28)
--- NOTE | 2019-10-13 09:13 | PM&R Progress Note ---
Subjective HPI/CC On Admission Date Seen by Provider: Oct 13, 2019 Time Seen by Provider: 09:15 Subjective/Events-last exam Talked about her variability with her BP but seems to be more stable now Conferred with Dr Astorga about C-scope Anxious about her BP levels on a chronic basis it seems Bowels moved yesterday No falls DC planned for 10/16/19 Conferred with RN Checked meds and labs Reviewed therapy notes Objective Exam Vital Signs Vital Signs Date Time Temp Pulse Resp B/P (MAP) Pulse Ox O2 Delivery O2 Flow Rate FiO2 10/13/19 07:55 Room Air 10/13/19 05:11 36.4 77 18 159/73 (101) 95 10/07/19 16:00 Capillary Refill : Less Than 3 Seconds General Appearance: No Apparent Distress, WD/WN, Anxious, Chronically ill, Obese HEENT: PERRL/EOMI, Normal ENT Inspection, Pharynx Normal Neck: Full Range of Motion, Normal Inspection, Non Tender, Supple, Carotid Bruit Respiratory: Chest Non Tender, Lungs Clear, Normal Breath Sounds, No Accessory Muscle Use, No Respiratory Distress Cardiovascular: Regular Rate, Rhythm, No Edema, No Gallop, No JVD, No Murmur, Normal Peripheral Pulses Gastrointestinal: Normal Bowel Sounds, No Organomegaly, No Pulsatile Mass, Non Tender, Soft Back: Normal Inspection, No CVA Tenderness, No Vertebral Tenderness Extremity: Normal Capillary Refill, Normal Inspection, Normal Range of Motion, Non Tender, No Calf Tenderness, No Pedal Edema Neurologic/Psychiatric: Alert, Oriented x3, No Motor/Sensory Deficits, Normal Mood/Affect, block feeder II-XII Norm as Tested, Abnormal Gait, Motor Weakness (generalized weakness all extremities) Skin: Normal Color, Warm/Dry Lymphatic: No Adenopathy Results/Procedures Lab Patient resulted labs reviewed. FIM Transfers Therapy Code Descriptions/Definitions Functional [place] Measure: 0=Not Assessed/NA 4=Minimal Assistance 1=Total Assistance 5=Supervision or Setup 2=Maximal Assistance 6=Modified Exchange 3=Moderate Assistance 7=Complete IndependenceSCALE: Activities may be completed with or without assistive devices. 2-Dehqqrexza-ncriffe completes the activity by him/herself with no assistance from a helper. 5-Set-up or Clean-up Assistance-helper sets up or cleans up; patient completes activity. [place] assists only prior to or following the activity. 4-Supervision or Touching Assistance-helper provides verbal cues and/or touching/steadying and/or contact guard assistance as patient completes activity. Assistance may be provided throughout the activity or intermittently. 3-Partial/Moderate Assistance-helper does LESS THAN HALF the effort. [place] lifts, holds or supports trunk or limbs, but provides less than half the effort. 2-Substantial/Maximal Assistance-helper does MORE THAN HALF the effort. [place] lifts or holds trunk or limbs and provides more than half the effort. 1-Mgmyvgqwc-pofxxl does ALL the effort. Patient does none of the effort to complete the activity. Or, the assistance of 2 or more helpers is required for the patient to complete the activity. If activity was not attempted, code reason: 7-Patient Refused. 9-Not Applicable-not attempted and the patient did not perform the activity before the current illness, exacerbation or injury. 10-Not Attempted due to Environmental Limitations-(lack of equipment, weather restraints, etc.). 88-Not Attempted due to Medical Conditions or Safety Concerns. Roll Left to Right (QC): 6 Sit to Lying (QC): 6 Sit to Stand (QC): 6 Chair/Tzy-ta-Zehps Xfer(QC): 5 Car Transfer (QC): 6 Gait Training Does the Patient Walk?: Yes Distance: 200 Walk 10 feet (QC): 5 Walk 50 ft with 2 Turns(QC): 5 Walk 150 ft (QC): 5 Walking 10ft/uneven surface-QC: 3 Gait Persons Needed: 1 Gait Assistive Device: FWW Wheelchair Training Does the Pt Use a Wheelchair?: No Wheel 50 ft with 2 turns (QC): 9 Wheel 150 ft (QC): 9 Stair Training 1 Step (curb) (QC): 4 4 Steps (QC): 88 12 Steps (QC): 88 Balance Picking up an Object (QC): 88 (NT due to poor strength) ADL-Treatment Eating (QC): 6 (Pt reports being able to cut food and bring food to her mouth this AM. ) Oral Hygiene (QC): 6 (IND standing at sink) Shower/Bathe Self (QC): 7 (pt declined bathing today.) Upper Body Dressing (QC): 6 (Pt able to use 4WW to gather dress from her closet, returned to her recliner to don dress.) Lower Body Dressing (QC): 7 (Pt declined changing her brief, she reports having changed it earlier this morning) On/Off Footwear (QC): 3 (Pt able to doff gripper socks using dressing stick. Pt then handed sock aide to don gripper socks, she states "I don't remember how to use this", requiring mod verbal cues for task, and assistance with pulling sock the rest of the way up once onto foot.) Toileting Hygiene (QC): 6 (pt able to manage clothing and perform toilet hygiene) Toilet Transfer (QC): 6 (pt tranferred on/off BSC over toilet) Assessment/Plan Assessment and Plan Assess & Plan/Chief Complaint Assessment: Debility Severe weakness Near syncope HTN GERD Glaucoma Gastroparesis Edema legs Constipation resolved 10/07/19 Nocturia Plan: IRF protocol Home meds Monitor BP PRINCESS wraps to legs BM treatment change to prn now Increase ADL's Change time of Coreg in case that is causing nocturia 10/09/19: Check urine sample with an in & out cath Schedule Reglan twice daily Monitor patient progress closely may need swing bed afterwards or to replace the structure therapy program 10/10/19: Continue bowel regimen Consult for abdominal pain and CT scan abnormality Continue therapy patient much improved today 10/11/19: Colonoscopy was originally scheduled with Dr. Astorga upon Dr. Alicea's request but daughter told her that she was fearful of a perforation so she doesn't want the Colonoscopy now Monitor low blood pressure it seems to be causing some fatigue Continue leg wraps with princess wraps 10/12/19: Monitor blood pressure closely but she does have a lot of variability of which would be impossible to completely resolve while in in-patient rehab Avoid Hypotension Monitor bowel function and abdominal pain Colonoscopy is in out-patient as long as she doesn't fear perforation (1) Debility (2) Weakness generalized Status: Acute (3) Transient hypotension Status: Acute (4) Near syncope Status: Acute (5) Microcytic anemia Status: Acute (6) HTN (hypertension) Status: Acute (7) Dyspnea on exertion Status: Acute MARKO ANDERS DO Oct 13, 2019 09:13
--- NOTE | 2019-10-13 09:26 | Occupational Ther Daily Note ---
OT Current Status-Daily Note Subjective Pt seated in recliner, agreeable to OT tx with focus on ADLs. Pt did not report any pain during tx. ADL-Treatment Therapy Code Descriptions/Definitions Functional [place] Measure: 0=Not Assessed/NA 4=Minimal Assistance 1=Total Assistance 5=Supervision or Setup 2=Maximal Assistance 6=Modified [place] 3=Moderate Assistance 7=Complete IndependenceSCALE: Activities may be completed with or without assistive devices. 2-Wxoppqhcay-gmysphp completes the activity by him/herself with no assistance from a helper. 5-Set-up or Clean-up Assistance-helper sets up or cleans up; patient completes activity. [place] assists only prior to or following the activity. 4-Supervision or Touching Assistance-helper provides verbal cues and/or touching/steadying and/or contact guard assistance as patient completes activity. Assistance may be provided throughout the activity or intermittently. 3-Partial/Moderate Assistance-helper does LESS THAN HALF the effort. [place] lifts, holds or supports trunk or limbs, but provides less than half the effort. 2-Substantial/Maximal Assistance-helper does MORE THAN HALF the effort. [place] lifts or holds trunk or limbs and provides more than half the effort. 6-Lbwpvgxlt-khnhba does ALL the effort. Patient does none of the effort to complete the activity. Or, the assistance of 2 or more helpers is required for the patient to complete the activity. If activity was not attempted, code reason: 7-Patient Refused. 9-Not Applicable-not attempted and the patient did not perform the activity before the current illness, exacerbation or injury. 10-Not Attempted due to Environmental Limitations-(lack of equipment, weather restraints, etc.). 88-Not Attempted due to Medical Conditions or Safety Concerns. Eating (QC): 6 Oral Hygiene (QC): 6 (IND standing at sink) Shower/Bathe Self (QC): 4 (Pt able to wash all parts but asked for assistance with drying her feet. OT educated pt on how to use AE and towel to dry, pt demo'd understanding.) Upper Body Dressing (QC): 6 (Pt used 4WW to gather clothes from closet. Doff/magen clothes independently) Lower Body Dressing (QC): 4 (Pt doffed brief, donned brief and pants. Pt had difficulty donning pants with dressing stick, requiring cues to correctly use AE.) On/Off Footwear: 3 (Min A for adjustments after donning socks with sock aide. Pt able to doff socks with dressing stick.) Toileting Hygiene (QC): 6 Toilet Transfer (QC): 6 Other Treatment Pt seated in recliner, agreeable to OT tx. Pt used 4WW to ambulate to the restroom where she completed toileting then showering at [place]. Pt able to wash all parts while seated, then dried all parts except feet. Pt asked for assistance drying her feet, OT demo'd how to use long handled sponge/dressing stick with a towel in order to dry her feet. Pt then able to follow demonstration to complete task. Pt then completed dressing at [place]. She had difficulty donning briefs using dressing stick. She was able to thread LLE with increased time, then attempted to don RLE but started putting R foot into the same leg hole as the left. OT cued pt and pt able to take right foot out to try again. Pt attempted to use dressing stick but was unsuccessful due to poor carryover of task. OT provided verbal cues, then pt able to successfully don brief. Pt finished dressing, then used 4WW to go to sink to brush her hair and teeth. Pt returned to the recliner where she took her medicine provided by the nurse. Pt took a seated rest break, then used 4WW to go to the therapy gym with SBA. In order to increase BUE strength and functional endurance, pt completed arm bike x10 mins, min resistance. Pt returned to her room to her recliner. Post OT tx, pt seated in recliner, call light in reach and all needs met. Education OT Patient Education: Correct positioning, Energy conservation, Exercise program, Modified ADL techniques, Progress toward Goal/Update tx plan, Purpose of tx/functional activities, Safety issues, Transfer techniques Teaching Recipient: Patient Teaching Methods: Discussion Response to Teaching: Verbalize Understanding OT Short Term Goals Short Term Goals Time Frame: Oct 11, 2019 Toileting hygiene: 4 Lower body dressin OT Cloth Tester Goals Cloth Tester Goals Time Frame: Oct 25, 2019 Eating (QC): 6 Oral Hygiene (QC): 6 Toileting Hygiene (QC): 6 Shower/Bathe Self (QC): 5 Upper Body Dressing (QC): 6 Lower Body Dressing (QC): 6 On/Off Footwear (QC): 5 Additional Goals: 1-Demonstrate ADL Tasks, 2-Verbalize Understanding, 3- ImproveStrength/[place] 1=Demonstrate adherence to instructed precautions during ADL tasks. 2=Patient will verbalize/demonstrate understanding of assistive devices/modifications for ADL. 3=Patient will improve strength/tolerance for activity to enable patient to perform ADL's. OT Education/Plan Problem List/Assessment Assessment: Decreased Activ Tolerance, Decreased UE Strength, Impaired I ADL's, Impaired Self-Care Skills Discharge Recommendations Plan/Recommendations: Continue POC Treatment Plan/Plan of Care Patient would benefit from OT for education, treatment and training to promote independence in ADL's, mobility, safety and/or upper extremity function for ADL's. Plan of Care: ADL Retraining, Functional Mobility, Group Exercise/Act as Ind, UE Funct Exercise/Act Treatment Duration: Oct 25, 2019 Frequency: At least 5 of 7 days/Wk (IRF) Estimated Hrs Per Day: 1.5 hours per day Agreement: Yes Rehab Potential: Fair Time/GCodes Start Time: 08:00 Stop Time: 09:30 Total Time Billed (hr/min): 90 Billed Treatment Time 1, ADL 5 (80'), EX (10') BOOM JUNIOR OT Oct 13, 2019 09:26
--- NOTE | 2019-10-13 11:10 | Progress Note - Cardiology ---
Cardiology SOAP Progress Note Subjective: No cp or palp or syncope or shortness of breath Gen weakness and malaise No n/v/d Objective: I&O/Vital Signs 10/13/19 10/13/19 05:11 07:55 Temp 36.4 Pulse 77 Resp 18 B/P (MAP) 159/73 (101) Pulse Ox 95 O2 Delivery Room Air Room Air 10/13/19 00:00 Intake Total 600 ml Balance 600 ml Weight (Pounds): 188 Weight (Ounces): 1.6 Weight (Calculated Kilograms): 85.512879 Constitutional: AAO x 3, PERRL, well-developed, well-nourished Respiratory: chest is bilaterally symmetric, lungs clear to auscultation Cardiovascular: regular rate-rhythm, S1 and S2; No diastolic murmur, No systolic murmur Gastrointestional: soft, audible bowel sounds Extremities: normal range of motion, non-tender, other (bilateral, nonpitting swelling of the legs reported anju be chronic) Neurologic/Psychiatric: no motor/sensory deficits, alert, normal mood/affect, oriented x 3, other (moves all limbs equally) Skin: normal color, warm/dry A/P: Assessment: Gen weakness and debility Diverticulitis - Medical services managing Echocardiogram of October 03, [address] Zamudio showed moderate LVH. LA mod dilated. Mitral valve calcification. Mod TR. PASP 45-50mmHg Acute on chronic mild diastolic congestive heart failure - clinically compensated MPI of October 03, [address] Zamudio showed no evidence of ischemia or infarction Labile HTN Chronic, bilateral leg swelling Plan: Continue current regimen Monitor labs from time to time MUSA SOUTH MD FACP FAC CCDS Oct 13, 2019 11:10
--- NOTE | 2019-10-13 11:28 | Physical Therapy Daily Note ---
PT Daily Note-Current Subjective Pt in recliner upon arrival and agrees to tx. Pt states she feels very tired today and her BP has been low. Pain Location: No Pain Reported Mental Status Patient Orientation: Person, Place, Time, Situation Transfers SCALE: Activities may be completed with or without assistive devices. 6-Bidsdbnjpg-eeiatng completes the activity by him/herself with no assistance from a helper. 5-Set-up or Clean-up Assistance-helper sets up or cleans up; patient completes activity. [place] assists only prior to or following the activity. 4-Supervision or Touching Assistance-helper provides verbal cues and/or touching/steadying and/or contact guard assistance as patient completes activity. Assistance may be provided throughout the activity or intermittently. 3-Partial/Moderate Assistance-helper does LESS THAN HALF the effort. [place] lifts, holds or supports trunk or limbs, but provides less than half the effort. 2-Substantial/Maximal Assistance-helper does MORE THAN HALF the effort. [place] lifts or holds trunk or limbs and provides more than half the effort. 8-Srkfiqxlm-olswxg does ALL the effort. Patient does none of the effort to complete the activity. Or, the assistance of 2 or more helpers is required for the patient to complete the activity. If activity was not attempted, code reason: 7-Patient Refused. 9-Not Applicable-not attempted and the patient did not perform the activity before the current illness, exacerbation or injury. 10-Not Attempted due to Environmental Limitations-(lack of equipment, weather restraints, etc.). 88-Not Attempted due to Medical Conditions or Safety Concerns. Sit to Stand (QC): 5 Toilet Transfer (QC): 5 Weight Bearing Full Weight Bearing Full Weight Bearing Gait Training Does the Patient Walk?: Yes Distance: 10 Walk 10 feet (QC): 5 Gait Assistive Device: Walker 4 Wheeled Pt amb from recliner to toilet and back to recliner with 4WW. Pt has wide NAIN and shuffling gait, requiring VC to keep 4WW closer to her. It is noted that pt. keeps hands/fingers on brake in case she should need to brake suddenly Exercises Supine Ex: Bridging, Ankle pumps, Quad Set, Rolling, Glut sets, Heel Slides, Knee to chest, Short Arc Quads, Straight leg raise, Hip abd/add Supine Reps: 12 Seated Therapy Exercises: Ankle pumps, Sit to stand (5), Long arc quads, Hip abd/add Seated Reps: 12 Treatments Pt in recliner and performs supine exercises d/t BP being low. Pt sits up in recliner and BP was taken at 105/52. Pt performs a couple exercises and BP reads 112/51. Pt performs sit to stand exercise and BP was taken at 110/51. Pt takes rest break then stands while BP is taken. BP reads 98/45. Pt takes seated rest break then sit to stand with BP reading 109/52. Pt amb to restroom and back only, with chair close behind if needed. BP was taken a final time reading 108/51. Pt returns to recliner and was left with all needs met, call light in hand. Assessment Current Status: Good Progress Pt activity limited today d/t low BP. Pt requires few rest breaks throughout tx. Pt required VC with gait to keep 4WW closer to her for safety . PT Short Term Goals Short Term Goals Time Frame: Oct 11, 2019 Roll Left & Right: 6 Sit to lyin Lying to sitting on side of be: 4 Sit to stand: 4 Chair/gth-mk-xftfd transfer: 4 Walk 10 feet: 4 Walk 50 feet with two turns: 4 Walk 150 feet: 4 PT Supervisor Fiber Locking Goals Custodial Goals PT Custodial Goals Time Frame: Oct 25, 2019 Roll Left & Right (QC): 6 Sit to Lying (QC): 6 Lying-Sitting on Side/Bed(QC): 6 Sit to Stand (QC): 6 Chair/Yqm-pq-Qgwfr Xfer(QC): 6 Toilet Transfer (QC): 6 Car Transfer (QC): 6 Does the Patient Walk: Yes Walk 10 feet (QC): 6 Walk 50ft with 2 Turns (QC): 6 Walk 150 ft (QC): 6 Walking 10ft on Uneven Surface: 6 1 Step (curb) (QC): 4 4 Steps (QC): 4 12 Steps (QC): 88 Picking up an Object (QC): 4 Does the Pt use WC or Scooter?: No Wheel 50 feet with 2 turns (QC: 9 Wheel 150 feet: 9 PT Plan Treatment/Plan Treatment Plan: Continue Plan of Care Treatment Plan: Bed Mobility, Education, Functional Activity [place], Functional Strength, Group Therapy, Gait, Safety, Therapeutic Exercise, Transfers Treatment Duration: Oct 25, 2019 Frequency: At least 5 of 7 days/Wk (IRF) Estimated Hrs Per Day: 1.5 hours per day Patient and/or Family Agrees t: Yes Safety Risks/Education Patient Education: Gait Training, Correct Positioning, Safety Issues Teaching Recipient: Patient Teaching Methods: Demonstration, Discussion Response to Teaching: Verbalize Understanding, Return Demonstration Time/GCodes Time In: 1030 Time Out: 1130 Total Billed Treatment Time: 60 Total Billed Treatment 1, Ex x3 (45m), FA (15m) CEDRIC DODD SENIOR SOFTWARE MANAGER Oct 13, 2019 11:28
--- NOTE | 2019-10-13 13:35 | Physical Therapy Daily Note ---
PT Daily Note-Current Subjective Pt in recliner upon arrival and agrees to tx. Pt states she is still very tired. Pain Location: No Pain Reported Mental Status Patient Orientation: Person, Place, Time, Situation Transfers SCALE: Activities may be completed with or without assistive devices. 0-Pscxhbhllz-snphguv completes the activity by him/herself with no assistance from a helper. 5-Set-up or Clean-up Assistance-helper sets up or cleans up; patient completes activity. [place] assists only prior to or following the activity. 4-Supervision or Touching Assistance-helper provides verbal cues and/or touching/steadying and/or contact guard assistance as patient completes activity. Assistance may be provided throughout the activity or intermittently. 3-Partial/Moderate Assistance-helper does LESS THAN HALF the effort. [place] lifts, holds or supports trunk or limbs, but provides less than half the effort. 2-Substantial/Maximal Assistance-helper does MORE THAN HALF the effort. [place] lifts or holds trunk or limbs and provides more than half the effort. 9-Mmdyyqeeh-oaspqy does ALL the effort. Patient does none of the effort to complete the activity. Or, the assistance of 2 or more helpers is required for the patient to complete the activity. If activity was not attempted, code reason: 7-Patient Refused. 9-Not Applicable-not attempted and the patient did not perform the activity before the current illness, exacerbation or injury. 10-Not Attempted due to Environmental Limitations-(lack of equipment, weather restraints, etc.). 88-Not Attempted due to Medical Conditions or Safety Concerns. Weight Bearing Full Weight Bearing Full Weight Bearing Exercises Supine Ex: Ankle pumps, Quad Set, Glut sets, Heel Slides, Short Arc Quads, Straight leg raise, Hip abd/add Supine Reps: 12 Seated Therapy Exercises: Ankle pumps, Long arc quads, Hip abd/add Seated Reps: 12 Treatments Pt in recliner and BP was taken at beginning of tx reading 105/47. Pt performs supine exercises. Pt sits up in recliner and performs seated exercises. Post seated exercises pt BP at 94/44. Pt reclined back in chair and given rest break. After rest break pt BP read 121/60. Assessment Current Status: Good Progress Pt activity limited d/t BP at this time. Pt overall increased strength and endurance. PT Short Term Goals Short Term Goals Time Frame: Oct 11, 2019 Roll Left & Right: 6 Sit to lyin Lying to sitting on side of be: 4 Sit to stand: 4 Chair/jrg-sc-koloe transfer: 4 Walk 10 feet: 4 Walk 50 feet with two turns: 4 Walk 150 feet: 4 PT Fci Goals Trackless Trolley Driver Goals PT Trackless Trolley Driver Goals Time Frame: Oct 25, 2019 Roll Left & Right (QC): 6 Sit to Lying (QC): 6 Lying-Sitting on Side/Bed(QC): 6 Sit to Stand (QC): 6 Chair/Jqa-zb-Lqkzc Xfer(QC): 6 Toilet Transfer (QC): 6 Car Transfer (QC): 6 Does the Patient Walk: Yes Walk 10 feet (QC): 6 Walk 50ft with 2 Turns (QC): 6 Walk 150 ft (QC): 6 Walking 10ft on Uneven Surface: 6 1 Step (curb) (QC): 4 4 Steps (QC): 4 12 Steps (QC): 88 Picking up an Object (QC): 4 Does the Pt use WC or Scooter?: No Wheel 50 feet with 2 turns (QC: 9 Wheel 150 feet: 9 PT Plan Problem List Problem List: Safety Treatment/Plan Treatment Plan: Continue Plan of Care Treatment Plan: Bed Mobility, Education, Functional Activity [place], Functional Strength, Group Therapy, Gait, Safety, Therapeutic Exercise, Transfers Treatment Duration: Oct 25, 2019 Frequency: At least 5 of 7 days/Wk (IRF) Estimated Hrs Per Day: 1.5 hours per day Patient and/or Family Agrees t: Yes Safety Risks/Education Patient Education: Correct Positioning, Safety Issues Teaching Recipient: Patient Teaching Methods: Demonstration, Discussion Response to Teaching: Verbalize Understanding, Return Demonstration Time/GCodes Time In: 1300 Time Out: 1330 Total Billed Treatment Time: 30 Total Billed Treatment 1, Ex x2 CEDRIC DODD CEMENT CUTTER Oct 13, 2019 13:35
[2019-10-13 18:00] VITALS: BP 124/58
[2019-10-13] MEDS: PANTOPRAZOLE 40 MG (PROTONIX) TAB PO SCH (19:00)
[2019-10-13] MEDS: MIRTAZAPINE 15 MG (REMERON) TAB PO SCH (21:21)
[2019-10-13] MEDS: ALPRAZolam 0.25 MG (XANAX) TAB PO PRN (21:22)
[2019-10-14 05:34] VITALS: BP 162/75
--- NOTE | 2019-10-14 07:32 | PM&R Progress Note ---
Subjective HPI/CC On Admission Date Seen by Provider: Oct 14, 2019 Time Seen by Provider: 10:00 Subjective/Events-last exam Talked about her variability with her BP but seems to be more stable now and she seems to be ok with it Conferred with Dr Astorga about C-scope yesterday Anxious about her BP levels on a chronic basis it seems so tried to reassure her Bowels moved well No falls DC planned for 10/16/19 Conferred with RN Checked meds and labs Reviewed therapy notes Review of Systems General: Fatigue, Malaise Objective Exam Vital Signs Vital Signs Date Time Temp Pulse Resp B/P (MAP) Pulse Ox O2 Delivery O2 Flow Rate FiO2 10/14/19 05:34 36.0 83 18 162/75 (104) 96 Room Air Capillary Refill : Less Than 3 Seconds General Appearance: No Apparent Distress, WD/WN, Anxious, Chronically ill, Obese HEENT: PERRL/EOMI, Normal ENT Inspection, Pharynx Normal Neck: Full Range of Motion, Normal Inspection, Non Tender, Supple, Carotid Bruit Respiratory: Chest Non Tender, Lungs Clear, Normal Breath Sounds, No Accessory Muscle Use, No Respiratory Distress Cardiovascular: Regular Rate, Rhythm, No Edema, No Gallop, No JVD, No Murmur, Normal Peripheral Pulses Gastrointestinal: Normal Bowel Sounds, No Organomegaly, No Pulsatile Mass, Non Tender, Soft Back: Normal Inspection, No CVA Tenderness, No Vertebral Tenderness Extremity: Normal Capillary Refill, Normal Inspection, Normal Range of Motion, Non Tender, No Calf Tenderness, No Pedal Edema Neurologic/Psychiatric: Alert, Oriented x3, No Motor/Sensory Deficits, Normal Mood/Affect, fiscal agent II-XII Norm as Tested, Abnormal Gait, Motor Weakness (generalized weakness all extremities) Skin: Normal Color, Warm/Dry Lymphatic: No Adenopathy Results/Procedures Lab Patient resulted labs reviewed. FIM Transfers Therapy Code Descriptions/Definitions Functional [place] Measure: 0=Not Assessed/NA 4=Minimal Assistance 1=Total Assistance 5=Supervision or Setup 2=Maximal Assistance 6=Modified [place] 3=Moderate Assistance 7=Complete IndependenceSCALE: Activities may be completed with or without assistive devices. 1-Vbujjnmgpo-bhjmdir completes the activity by him/herself with no assistance from a helper. 5-Set-up or Clean-up Assistance-helper sets up or cleans up; patient completes activity. [place] assists only prior to or following the activity. 4-Supervision or Touching Assistance-helper provides verbal cues and/or touching/steadying and/or contact guard assistance as patient completes activity. Assistance may be provided throughout the activity or intermittently. 3-Partial/Moderate Assistance-helper does LESS THAN HALF the effort. [place] lifts, holds or supports trunk or limbs, but provides less than half the effort. 2-Substantial/Maximal Assistance-helper does MORE THAN HALF the effort. [place] lifts or holds trunk or limbs and provides more than half the effort. 3-Cvqvktmap-xelxrs does ALL the effort. Patient does none of the effort to complete the activity. Or, the assistance of 2 or more helpers is required for the patient to complete the activity. If activity was not attempted, code reason: 7-Patient Refused. 9-Not Applicable-not attempted and the patient did not perform the activity before the current illness, exacerbation or injury. 10-Not Attempted due to Environmental Limitations-(lack of equipment, weather restraints, etc.). 88-Not Attempted due to Medical Conditions or Safety Concerns. Roll Left to Right (QC): 6 Sit to Lying (QC): 6 Sit to Stand (QC): 5 Chair/Jtx-wk-Jmwhj Xfer(QC): 5 Car Transfer (QC): 6 Gait Training Does the Patient Walk?: Yes Distance: 10 Walk 10 feet (QC): 5 Walk 50 ft with 2 Turns(QC): 5 Walk 150 ft (QC): 5 Walking 10ft/uneven surface-QC: 3 Gait Persons Needed: 1 Gait Assistive Device: Walker 4 Wheeled Wheelchair Training Does the Pt Use a Wheelchair?: No Wheel 50 ft with 2 turns (QC): 9 Wheel 150 ft (QC): 9 Stair Training 1 Step (curb) (QC): 4 4 Steps (QC): 88 12 Steps (QC): 88 Balance Picking up an Object (QC): 88 (NT due to poor strength) ADL-Treatment Eating (QC): 6 Oral Hygiene (QC): 6 (IND standing at sink) Shower/Bathe Self (QC): 4 (Pt able to wash all parts but asked for assistance with drying her feet. OT educated pt on how to use AE and towel to dry, pt demo'd understanding.) Upper Body Dressing (QC): 6 (Pt used 4WW to gather clothes from closet. Doff/magen clothes independently) Lower Body Dressing (QC): 4 (Pt doffed brief, donned brief and pants. Pt had difficulty donning pants with dressing stick, requiring cues to correctly use AE.) On/Off Footwear (QC): 3 (Min A for adjustments after donning socks with sock aide. Pt able to doff socks with dressing stick.) Toileting Hygiene (QC): 6 Toilet Transfer (QC): 6 Assessment/Plan Assessment and Plan Assess & Plan/Chief Complaint Assessment: Debility Severe weakness Near syncope HTN GERD Glaucoma Gastroparesis Edema legs Constipation resolved 10/07/19 Nocturia Plan: IRF protocol Home meds Monitor BP PRINCESS wraps to legs BM treatment change to prn now Increase ADL's Change time of Coreg in case that is causing nocturia 10/09/19: Check urine sample with an in & out cath Schedule Reglan twice daily Monitor patient progress closely may need swing bed afterwards or to replace the structure therapy program 10/10/19: Continue bowel regimen Consult for abdominal pain and CT scan abnormality Continue therapy patient much improved today 10/11/19: Colonoscopy was originally scheduled with Dr. Astorga upon Dr. Alicea's request but daughter told her that she was fearful of a perforation so she doesn't want the Colonoscopy now Monitor low blood pressure it seems to be causing some fatigue Continue leg wraps with princess wraps 10/12/19: Monitor blood pressure closely but she does have a lot of variability of which would be impossible to completely resolve while in in-patient rehab Avoid Hypotension Monitor bowel function and abdominal pain Colonoscopy is in out-patient as long as she doesn't fear perforation 10/14/19: Monitor BP Fine tune therapies DC planned soon (1) Debility (2) Weakness generalized Status: Acute (3) Transient hypotension Status: Acute (4) Near syncope Status: Acute (5) Microcytic anemia Status: Acute (6) HTN (hypertension) Status: Acute (7) Dyspnea on exertion Status: Acute MARKO ANDERS DO Oct 14, 2019 07:32
[2019-10-14 09:15] VITALS: BP 124/60
[2019-10-14] MEDS: BRIMONIDINE 0.2% (ALPHAGAN) OPHTH SOLN 5 ML BTL OS SCH ×3 (09:32→20:56)
[2019-10-14] MEDS: METOCLOPRAMIDE 5 MG (REGLAN) TAB PO SCH ×2 (09:32→20:58)
[2019-10-14] MEDS: SENNA W/DOCUSATE (SENOKOT S) TABLET PO SCH ×2 (09:32→21:02)
[2019-10-14] MEDS: TIMOLOL MALEATE 0.5% 5 ML (TIMOPTIC) BTL OS SCH ×2 (09:32→20:56)
[2019-10-14] MEDS: CARVEDILOL 12.5 MG (COREG) TABLET PO SCH ×2 (09:33→21:00)
[2019-10-14] MEDS: DOCUSATE SODIUM 100 MG (COLACE) CAP PO SCH ×2 (09:33→21:01)
[2019-10-14] MEDS: lisINopril 40 MG (PRINIVIL) TABLET PO SCH (09:33)
[2019-10-14] MEDS: polyethylene glycoL POWDER 17 GM (MIRALAX) PACK PO SCH ×2 (09:33→21:01)
[2019-10-14] MEDS: ASPIRIN E.C. 81 MG (ECOTRIN) TAB PO SCH (09:33)
[2019-10-14] MEDS: amLODIPine 5 MG (NORVASC) TAB PO SCH (09:33)
[2019-10-14] MEDS: MICONAZOLE NITRATE 2% CRM 30 GM TP SCH ×2 (09:34→21:01)
[2019-10-14] MEDS: MICONAZOLE 2% POWDER (DESENEX AF) 90 GM TOP SCH ×2 (09:34→21:01)
--- NOTE | 2019-10-14 11:24 | Physical Therapy Daily Note ---
PT Daily Note-Current Subjective Pt agreeable. Pt without complaint of pain. Mental Status Patient Orientation: Person, Place, Situation Transfers SCALE: Activities may be completed with or without assistive devices. 1-Udmgvqxlij-nwmfngg completes the activity by him/herself with no assistance from a helper. 5-Set-up or Clean-up Assistance-helper sets up or cleans up; patient completes activity. [place] assists only prior to or following the activity. 4-Supervision or Touching Assistance-helper provides verbal cues and/or touch ing/steadying and/or contact guard assistance as patient completes activity. Assistance may be provided throughout the activity or intermittently. 3-Partial/Moderate Assistance-helper does LESS THAN HALF the effort. [place] lifts, holds or supports trunk or limbs, but provides less than half the effort. 2-Substantial/Maximal Assistance-helper does MORE THAN HALF the effort. [place] lifts or holds trunk or limbs and provides more than half the effort. 4-Vjdnecukm-ycuubr does ALL the effort. Patient does none of the effort to complete the activity. Or, the assistance of 2 or more helpers is required for the patient to complete the activity. If activity was not attempted, code reason: 7-Patient Refused. 9-Not Applicable-not attempted and the patient did not perform the activity before the current illness, exacerbation or injury. 10-Not Attempted due to Environmental Limitations-(lack of equipment, weather restraints, etc.). 88-Not Attempted due to Medical Conditions or Safety Concerns. Pt mod (I) with dressing and toileting. Transfers mod (I) all levels. Weight Bearing Full Weight Bearing Full Weight Bearing Gait Training Gait Assistive Device: FWW Treatments Pt amb with FWW and CGA 2 x 130ft with rest break between. Assessment Current Status: Good Progress Pt BP taken upon standing/prior to ambulation 128/61 with HR 82bpm. Pt ninfa above treatment well with rest breaks as needed. Pt resting in recliner with legs elevated and all needs met post therapy session. Call light in lap. PT Short Term Goals Short Term Goals Time Frame: Oct 11, 2019 Roll Left & Right: 6 Sit to lyin Lying to sitting on side of be: 4 Sit to stand: 4 Chair/ezq-wv-wiumm transfer: 4 Walk 10 feet: 4 Walk 50 feet with two turns: 4 Walk 150 feet: 4 PT Electric Wirer Goals Custodial Goals PT Custodial Goals Time Frame: Oct 25, 2019 Roll Left & Right (QC): 6 Sit to Lying (QC): 6 Lying-Sitting on Side/Bed(QC): 6 Sit to Stand (QC): 6 Chair/Ecm-wd-Jyhbd Xfer(QC): 6 Toilet Transfer (QC): 6 Car Transfer (QC): 6 Does the Patient Walk: Yes Walk 10 feet (QC): 6 Walk 50ft with 2 Turns (QC): 6 Walk 150 ft (QC): 6 Walking 10ft on Uneven Surface: 6 1 Step (curb) (QC): 4 4 Steps (QC): 4 12 Steps (QC): 88 Picking up an Object (QC): 4 Does the Pt use WC or Scooter?: No Wheel 50 feet with 2 turns (QC: 9 Wheel 150 feet: 9 PT Plan Treatment/Plan Treatment Plan: Continue Plan of Care Treatment Plan: Bed Mobility, Education, Functional Activity [place], Functional Strength, Group Therapy, Gait, Safety, Therapeutic Exercise, Transfers Treatment Duration: Oct 25, 2019 Frequency: At least 5 of 7 days/Wk (IRF) Estimated Hrs Per Day: 1.5 hours per day Patient and/or Family Agrees t: Yes Time/GCodes Time In: 810 Time Out: 833 Total Billed Treatment Time: 23 Total Billed Treatment 1, gait x 13', FA 10', BRADLEY ALVAREZ CPTA Oct 14, 2019 11:24
--- NOTE | 2019-10-14 13:49 | Progress Note - Cardiology ---
Cardiology SOAP Progress Note Subjective: No cp or palp or syncope or shortness of breath at rest Worsening leg swelling No n/v/d No focal weakness Gen weakness present Objective: I&O/Vital Signs 10/14/19 10/14/19 05:34 09:00 Temp 36.0 Pulse 83 Resp 18 B/P (MAP) 162/75 (104) Pulse Ox 96 O2 Delivery Room Air Room Air 10/14/19 00:00 Intake Total 2720 ml Balance 2720 ml Weight (Pounds): 188 Weight (Ounces): 1.6 Weight (Calculated Kilograms): 85.521875 Constitutional: AAO x 3, PERRL, well-developed, well-nourished Respiratory: chest is bilaterally symmetric, lungs clear to auscultation Cardiovascular: regular rate-rhythm, S1 and S2; No diastolic murmur, No syst olic murmur Gastrointestional: soft, audible bowel sounds Extremities: normal range of motion, non-tender, other (bilateral, nonpitting swelling of the legs reported anju be chronic) Neurologic/Psychiatric: no motor/sensory deficits, alert, normal mood/affect, oriented x 3, other (moves all limbs equally) Skin: normal color, warm/dry A/P: Assessment: Hypertension Worsening leg swelling: likely due to venous insufficiency and amlodipine use Gen weakness and debility Diverticulitis - Medical services managing Echocardiogram of October 03, [address] Zamudio showed moderate LVH. LA mod dilated. Mitral valve calcification. Mod TR. PASP 45-50mmHg Acute on chronic mild diastolic congestive heart failure - clinically compensated MPI of October 03, [address] Zamudio showed no evidence of ischemia or infarction Plan: D/c amlodipine Increase carvedilol Add Dyazide Monitor labs MUSA SOUTH MD FACP FAC CCDS Oct 14, 2019 13:49
[2019-10-14] MEDS: PANTOPRAZOLE 40 MG (PROTONIX) TAB PO SCH (18:22)
[2019-10-14 18:55] VITALS: BP 113/51
--- NOTE | 2019-10-14 19:15 | NUR ---
bedside report received from BRYANNA DIAS, assume care of pt
[2019-10-14 20:50] VITALS: BP 146/64
--- NOTE | 2019-10-14 20:56 | NUR ---
to bathroom with 1 person standby assist & walker to clean up before bed, then back to bed, refused Carter, alicia & Adam states this stool makes 4 today
[2019-10-14] MEDS: MIRTAZAPINE 15 MG (REMERON) TAB PO SCH (21:00)
[2019-10-15 05:08] VITALS: BP 156/73
[2019-10-15 05:31] LABS: BASOPHILS % (AUTO) 0 % (0-10); EOSINOPHILS # (AUTO) 0.3 10^3/uL (0.0-0.3); EOSINOPHILS % (AUTO) 4 % (0-10); HEMATOCRIT 38 % (35-52); HEMOGLOBIN 13.4 G/DL (11.5-16.0); LYMPHOCYTES # (AUTO) 2.1 X 10^3 (1.0-4.0); LYMPHOCYTES % (AUTO) 26 % (12-44); MEAN CORPUSCULAR HEMOGLOBIN 32 PG (25-34); MEAN CORPUSCULAR HGB CONC 35 G/DL (32-36); MEAN CORPUSCULAR VOLUME 90 FL (80-99); MEAN PLATELET VOLUME 10.2 FL (7.4-10.4); MONOCYTES # (AUTO) 0.8 X 10^3 (0.0-1.0); MONOCYTES % (AUTO) 11 % (0-12); NEUTROPHILS # (AUTO) 4.6 X 10^3 (1.8-7.8); NEUTROPHILS % (AUTO) 59 % (42-75); PLATELET COUNT 209 10^3/uL (130-400); RED CELL DISTRIBUTION WIDTH 13.6 % (10.0-14.5); WHITE BLOOD COUNT 7.8 10^3/uL (4.3-11.0)
[2019-10-15 05:46] LABS: CHLORIDE 101 MMOL/L (98-107); SODIUM 131 MMOL/L (135-145)
[2019-10-15 05:47] LABS: CALCIUM 7.9 MG/DL (8.5-10.1); GLUCOSE 108 MG/DL (70-105)
[2019-10-15 05:49] LABS: CARBON DIOXIDE 21 MMOL/L (21-32)
[2019-10-15 05:51] LABS: CREATININE SERUM 0.66 MG/DL (0.60-1.30); GFR ESTIMATED > 60
[2019-10-15 05:52] LABS: BUN/CREATININE RATIO 18
[2019-10-15 05:53] LABS: MAGNESIUM 1.7 MG/DL (1.6-2.4)
[2019-10-15 08:00] VITALS: BP 146/63
[2019-10-15] MEDS: TRIAMTERENE/HCTZ 75-50 (MAXZIDE,DYAZIDE) TABLET PO SCH (08:28)
[2019-10-15] MEDS: ASPIRIN E.C. 81 MG (ECOTRIN) TAB PO SCH (08:28)
[2019-10-15] MEDS: lisINopril 40 MG (PRINIVIL) TABLET PO SCH (08:28)
[2019-10-15] MEDS: TIMOLOL MALEATE 0.5% 5 ML (TIMOPTIC) BTL OS SCH ×2 (08:29→20:56)
[2019-10-15] MEDS: CARVEDILOL 12.5 MG (COREG) TABLET PO SCH ×2 (08:29→20:59)
[2019-10-15] MEDS: METOCLOPRAMIDE 5 MG (REGLAN) TAB PO SCH ×2 (08:29→20:42)
[2019-10-15] MEDS: DOCUSATE SODIUM 100 MG (COLACE) CAP PO SCH ×2 (08:30→20:42)
[2019-10-15] MEDS: BRIMONIDINE 0.2% (ALPHAGAN) OPHTH SOLN 5 ML BTL OS SCH ×3 (08:30→20:46)
[2019-10-15] MEDS: MICONAZOLE 2% POWDER (DESENEX AF) 90 GM TOP SCH ×2 (08:30→20:47)
[2019-10-15] MEDS: polyethylene glycoL POWDER 17 GM (MIRALAX) PACK PO SCH ×2 (08:30→20:59)
[2019-10-15] MEDS: MICONAZOLE NITRATE 2% CRM 30 GM TP SCH ×2 (08:30→20:47)
[2019-10-15] MEDS: SENNA W/DOCUSATE (SENOKOT S) TABLET PO SCH ×2 (08:31→20:42)
--- NOTE | 2019-10-15 08:51 | PM&R Progress Note ---
Subjective HPI/CC On Admission Date Seen by Provider: Oct 15, 2019 Time Seen by Provider: 12:50 Subjective/Events-last exam Talked about her variability with her BP but seems to be more stable now and she seems to be ok with it but Coreg was increased to 25mg PO BID and she is having significant lethargy from it so will confer with Dr Tyler Conferred with Dr Astorga about C-scope and it will be an option as an outpatient Anxious about her BP levels on a chronic basis it seems so tried to reassure her Bowels moved well No falls DC planned for 10/16/19 but patient does not appear to be willing to DC due to v ariability of BP? Conferred with RN Checked meds and labs Reviewed therapy notes Review of Systems General: Fatigue, Malaise Objective Exam Vital Signs Vital Signs Date Time Temp Pulse Resp B/P (MAP) Pulse Ox O2 Delivery O2 Flow Rate FiO2 10/15/19 11:40 57 129/58 (81) Room Air 10/15/19 09:00 96 10/15/19 05:08 36.1 20 Capillary Refill : Less Than 3 Seconds General Appearance: No Apparent Distress, WD/WN, Anxious, Chronically ill, Obese HEENT: PERRL/EOMI, Normal ENT Inspection, Pharynx Normal Neck: Full Range of Motion, Normal Inspection, Non Tender, Supple, Carotid Bruit Respiratory: Chest Non Tender, Lungs Clear, Normal Breath Sounds, No Accessory Muscle Use, No Respiratory Distress Cardiovascular: Regular Rate, Rhythm, No Edema, No Gallop, No JVD, No Murmur, Normal Peripheral Pulses Gastrointestinal: Normal Bowel Sounds, No Organomegaly, No Pulsatile Mass, Non Tender, Soft Back: Normal Inspection, No CVA Tenderness, No Vertebral Tenderness Extremity: Normal Capillary Refill, Normal Inspection, Normal Range of Motion, Non Tender, No Calf Tenderness, No Pedal Edema Neurologic/Psychiatric: Alert, Oriented x3, No Motor/Sensory Deficits, Normal Mood/Affect, baggageman II-XII Norm as Tested, Abnormal Gait, Motor Weakness (generalized weakness all extremities) Skin: Normal Color, Warm/Dry Lymphatic: No Adenopathy Results/Procedures Lab Laboratory Tests 10/15/19 04:40 Patient resulted labs reviewed. FIM Transfers Therapy Code Descriptions/Definitions Functional [place] Measure: 0=Not Assessed/NA 4=Minimal Assistance 1=Total Assistance 5=Supervision or Setup 2=Maximal Assistance 6=Modified [place] 3=Moderate Assistance 7=Complete IndependenceSCALE: Activities may be completed with or without assistive devices. 0-Sywfvlafbw-mizkyqm completes the activity by him/herself with no assistance from a helper. 5-Set-up or Clean-up Assistance-helper sets up or cleans up; patient completes activity. [place] assists only prior to or following the activity. 4-Supervision or Touching Assistance-helper provides verbal cues and/or touching/steadying and/or contact guard assistance as patient completes activity. Assistance may be provided throughout the activity or intermittently. 3-Partial/Moderate Assistance-helper does LESS THAN HALF the effort. [place] lifts, holds or supports trunk or limbs, but provides less than half the effort. 2-Substantial/Maximal Assistance-helper does MORE THAN HALF the effort. [place] lifts or holds trunk or limbs and provides more than half the effort. 5-Cgjbcmiap-ojnbqe does ALL the effort. Patient does none of the effort to complete the activity. Or, the assistance of 2 or more helpers is required for the patient to complete the activity. If activity was not attempted, code reason: 7-Patient Refused. 9-Not Applicable-not attempted and the patient did not perform the activity before the current illness, exacerbation or injury. 10-Not Attempted due to Environmental Limitations-(lack of equipment, weather restraints, etc.). 88-Not Attempted due to Medical Conditions or Safety Concerns. Roll Left to Right (QC): 6 Sit to Lying (QC): 6 Sit to Stand (QC): 5 Chair/Gaf-vn-Szpbg Xfer(QC): 5 Car Transfer (QC): 6 Gait Training Does the Patient Walk?: Yes Distance: 10 Walk 10 feet (QC): 5 Walk 50 ft with 2 Turns(QC): 5 Walk 150 ft (QC): 5 Walking 10ft/uneven surface-QC: 3 Gait Persons Needed: 1 Gait Assistive Device: FWW Wheelchair Training Does the Pt Use a Wheelchair?: No Wheel 50 ft with 2 turns (QC): 9 Wheel 150 ft (QC): 9 Stair Training 1 Step (curb) (QC): 4 4 Steps (QC): 88 12 Steps (QC): 88 Balance Picking up an Object (QC): 88 (NT due to poor strength) ADL-Treatment Eating (QC): 6 Oral Hygiene (QC): 6 (IND standing at sink) Shower/Bathe Self (QC): 4 (Pt able to wash all parts but asked for assistance with drying her feet. OT educated pt on how to use AE and towel to dry, pt demo'd understanding.) Upper Body Dressing (QC): 6 (Pt used 4WW to gather clothes from closet. Doff/magen clothes independently) Lower Body Dressing (QC): 4 (Pt doffed brief, donned brief and pants. Pt had difficulty donning pants with dressing stick, requiring cues to correctly use AE.) On/Off Footwear (QC): 3 (Min A for adjustments after donning socks with sock aide. Pt able to doff socks with dressing stick.) Toileting Hygiene (QC): 6 Toilet Transfer (QC): 6 Assessment/Plan Assessment and Plan Assess & Plan/Chief Complaint Assessment: Debility Severe weakness Near syncope HTN GERD Glaucoma Gastroparesis Edema legs Constipation resolved 10/07/19 Nocturia Plan: IRF protocol Home meds Monitor BP PRINCESS wraps to legs BM treatment change to prn now Increase ADL's Change time of Coreg in case that is causing nocturia 10/09/19: Check urine sample with an in & out cath Schedule Reglan twice daily Monitor patient progress closely may need swing bed afterwards or to replace the structure therapy program 10/10/19: Continue bowel regimen Consult for abdominal pain and CT scan abnormality Continue therapy patient much improved today 10/11/19: Colonoscopy was originally scheduled with Dr. Astorga upon Dr. Alicea's request but daughter told her that she was fearful of a perforation so she doesn't want the Colonoscopy now Monitor low blood pressure it seems to be causing some fatigue Continue leg wraps with princess wraps 10/12/19: Monitor blood pressure closely but she does have a lot of variability of which would be impossible to completely resolve while in in-patient rehab Avoid Hypotension Monitor bowel function and abdominal pain Colonoscopy is in out-patient as long as she doesn't fear perforation 10/14/19: Monitor BP Fine tune therapies DC planned soon 10/15/19: Monitor BP Coreg increased dose to be evaluated by Dr Tyler May need skilled or AL? (1) Debility (2) Weakness generalized Status: Acute (3) Transient hypotension Status: Acute (4) Near syncope Status: Acute (5) Microcytic anemia Status: Acute (6) HTN (hypertension) Status: Acute (7) Dyspnea on exertion Status: Acute MARKO ANDERS DO Oct 15, 2019 08:51
[2019-10-15 11:40] VITALS: BP 129/58
--- NOTE | 2019-10-15 14:00 | NUR ---
DR. SOUTH HERE, ADDRESSED PT CONCERN OF NEW MEDICATION MAXZIDE MAKING HER SLEEPY. CONTINUING MEDICATION WILL RECHECK TOMORROW.
--- NOTE | 2019-10-15 15:51 | Progress Note - Cardiology ---
Cardiology SOAP Progress Note Subjective: Notes somnolence No cp or palp or syncope or shortness of breath at rest Leg swelling somewhat better No focal weakness. Gen weakness present No n/v/d Objective: I&O/Vital Signs 10/15/19 10/15/19 05:08 09:00 Temp 36.1 Pulse 70 Resp 20 B/P (MAP) 156/73 (100) Pulse Ox 95 96 O2 Delivery Room Air Room Air 10/15/19 00:00 Intake Total 1260 ml Balance 1260 ml Weight (Pounds): 188 Weight (Ounces): 1.6 Weight (Calculated Kilograms): 85.012632 Constitutional: AAO x 3, PERRL, well-developed, well-nourished Respiratory: chest is bilaterally symmetric, lungs clear to auscultation Cardiovascular: regular rate-rhythm, S1 and S2; No diastolic murmur, No systolic murmur Gastrointestional: soft, audible bowel sounds Extremities: normal range of motion, non-tender, other (bilateral, nonpitting swelling of the legs reported anju be chronic) Neurologic/Psychiatric: no motor/sensory deficits, alert, normal mood/affect, oriented x 3, other (moves all limbs equally) Skin: normal color, warm/dry Results/Procedures: Labs Laboratory Tests 10/15/19 04:40: White Blood Count 7.8, Red Blood Count 4.25L, Hemoglobin 13.4, Hematocrit 38, Mean Corpuscular Volume 90, Mean Corpuscular Hemoglobin 32, Mean Corpuscular Hemoglobin Concent 35, Red Cell Distribution Width 13.6, Platelet Count 209, Mean Platelet Volume 10.2, Neutrophils (%) (Auto) 59, Lymphocytes (%) (Auto) 26, Monocytes (%) (Auto) 11, Eosinophils (%) (Auto) 4, Basophils (%) (Auto) 0, Neutrophils # (Auto) 4.6, Lymphocytes # (Auto) 2.1, Monocytes # (Auto) 0.8, Eosinophils # (Auto) 0.3, Basophils # (Auto) 0.0, Sodium Level 131L, Potassium Level 4.0, Chloride Level 101, Carbon Dioxide Level 21, Anion Gap 9, Blood Urea Nitrogen 12, Creatinine 0.66, Estimat Glomerular Filtration Rate > 60, BUN/Creatinine Ratio 18, Glucose Level 108H, Calcium Level 7.9L, Magnesium Level 1.7 Laboratory Tests 10/15/19 04:40 A/P: Assessment: Somnolence on 10/15/19 - ? related to medication changes of 10/14/19 Hypertension Worsening leg swelling: likely due to venous insufficiency and amlodipine use Gen weakness and debility Diverticulitis - Medical services managing Echocardiogram of October 03, [address] Zamudio showed moderate LVH. LA mod dilated. Mitral valve calcification. Mod TR. PASP 45-50mmHg Acute on chronic mild diastolic congestive heart failure - clinically compensated MPI of October 03, [address] Zamudio showed no evidence of ischemia or infarction Plan: Observe another day. If somnolence persists, the reduce carvedilol back to previous dose Monitor labs MUSA SOUTH MD FACP FAC CCDS Oct 15, 2019 15:51
[2019-10-15 18:42] VITALS: BP 114/55
[2019-10-15] MEDS: PANTOPRAZOLE 40 MG (PROTONIX) TAB PO SCH (18:58)
--- NOTE | 2019-10-15 19:14 | NUR ---
bedside report received from BRYANNA DIAS, assume care of pt.
[2019-10-15 20:35] VITALS: BP 108/51
[2019-10-15] MEDS: MIRTAZAPINE 15 MG (REMERON) TAB PO SCH (20:42)
[2019-10-15] MEDS: ALPRAZolam 0.25 MG (XANAX) TAB PO PRN (20:42)
--- NOTE | 2019-10-15 20:46 | NUR ---
pt took Colace & Senokot refused miralax, b/p 108/51, pt felt b/p too low to take Coreg advised order states hold SBP less than or equal to 100 but pt wanted not to take it.
[2019-10-16 04:00] VITALS: BP 178/81
--- NOTE | 2019-10-16 04:03 | NUR ---
b/p 178/81 pt states what pill is making it go up. advised pt probably should have taken Coreg 25mg tonight, given clonidine 0.1mg po
[2019-10-16 05:04] VITALS: BP 143/67
--- NOTE | 2019-10-16 05:05 | NUR ---
B/P 143/67
[2019-10-16 05:06] LABS: BASOPHILS % (AUTO) 1 % (0-10); EOSINOPHILS # (AUTO) 0.4 10^3/uL (0.0-0.3); EOSINOPHILS % (AUTO) 4 % (0-10); HEMATOCRIT 40 % (35-52); HEMOGLOBIN 13.6 G/DL (11.5-16.0); LYMPHOCYTES # (AUTO) 1.8 X 10^3 (1.0-4.0); LYMPHOCYTES % (AUTO) 21 % (12-44); MEAN CORPUSCULAR HEMOGLOBIN 31 PG (25-34); MEAN CORPUSCULAR HGB CONC 34 G/DL (32-36); MEAN CORPUSCULAR VOLUME 90 FL (80-99); MONOCYTES # (AUTO) 1.2 X 10^3 (0.0-1.0); MONOCYTES % (AUTO) 14 % (0-12); NEUTROPHILS # (AUTO) 5.3 X 10^3 (1.8-7.8); NEUTROPHILS % (AUTO) 61 % (42-75); PLATELET COUNT 236 10^3/uL (130-400); WHITE BLOOD COUNT 8.7 10^3/uL (4.3-11.0)
[2019-10-16 05:17] LABS: ALBUMIN 3.1 GM/DL (3.2-4.5)
[2019-10-16 05:18] LABS: POTASSIUM 4.1 MMOL/L (3.6-5.0)
[2019-10-16 05:19] LABS: CALCIUM 8.2 MG/DL (8.5-10.1)
[2019-10-16 05:20] LABS: TOTAL PROTEIN 5.7 GM/DL (6.4-8.2)
[2019-10-16 05:22] LABS: BILIRUBIN,TOTAL 0.6 MG/DL (0.1-1.0)
[2019-10-16 05:24] LABS: CREATININE SERUM 0.91 MG/DL (0.60-1.30)
--- NOTE | 2019-10-16 08:49 | Occupational Ther Daily Note ---
OT Current Status-Daily Note Subjective Pt dozing in recliner, woke to name. Pt agrees to therapy. Pt states that she doesn't know if she will go home today due to her fluctuating BP. Discussed with nrsg. QC's completed this date. Pt to go home with family support. Mental Status/Objective Patient Orientation: Person, Place, Time, Situation ADL-Treatment Pt agrees to shower. Pt ambulated to choose clothing for the day with 4WW. Ambulated to bathroom and completed toileting and toileting hygiene, mod I using 4WW, BSC and grabbars. Pt then ambulated to shower and transferred, mod I using 4WW, shower seat and grabbar. Completed shower mod I using shower bench, hand held shower and grabbars. Pt stood at sink to complete oral care and grooming, mod I. Ambulated to recliner to don clothing. Upper body dressing, mod I. Lower body dressing using AE, mod I. Footwear using AE, mod I. Pt takes increased time to complete tasks due to multiple and lengthy recovery breaks. Therapy Code Descriptions/Definitions Functional [place] Measure: 0=Not Assessed/NA 4=Minimal Assistance 1=Total Assistance 5=Supervision or Setup 2=Maximal Assistance 6=Modified [place] 3=Moderate Assistance 7=Complete IndependenceSCALE: Activities may be completed with or without assistive devices. 4-Nwpknmmota-difpsok completes the activity by him/herself with no assistance from a helper. 5-Set-up or Clean-up Assistance-helper sets up or cleans up; patient completes activity. [place] assists only prior to or following the activity. 4-Supervision or Touching Assistance-helper provides verbal cues and/or touching/steadying and/or contact guard assistance as patient completes activity. Assistance may be provided throughout the activity or intermittently. 3-Partial/Moderate Assistance-helper does LESS THAN HALF the effort. [place] lifts, holds or supports trunk or limbs, but provides less than half the effort. 2-Substantial/Maximal Assistance-helper does MORE THAN HALF the effort. [place] lifts or holds trunk or limbs and provides more than half the effort. 1-Hbvzveddi-lxxpij does ALL the effort. Patient does none of the effort to complete the activity. Or, the assistance of 2 or more helpers is required for the patient to complete the activity. If activity was not attempted, code reason: 7-Patient Refused. 9-Not Applicable-not attempted and the patient did not perform the activity before the current illness, exacerbation or injury. 10-Not Attempted due to Environmental Limitations-(lack of equipment, weather restraints, etc.). 88-Not Attempted due to Medical Conditions or Safety Concerns. Eating (QC): 6 (Using clinical judgement, pt demonstrates the ability to complete own meal set up and uses regular utensils to eat.) Oral Hygiene (QC): 6 Bathing Location: L Arm, R Arm, L Upper Leg, R Upper Leg, L Lower Leg (including foot), R Lower Leg (including foot), Chest, Abdomen, Buttocks, Perineal Area Shower/Bathe Self (QC): 6 Upper Body Dressing (QC): 6 Lower Body Dressing (QC): 6 On/Off Footwear: 6 Toileting Hygiene (QC): 6 Toilet Transfer (QC): 6 Other Treatment Pt required skilled instruction for light resistance theraband UE exercises for correct technique, reminders of exercise and positioning of UE's. Pt able to to complete 4 exercises 1 set 10 reps with recovery break between each set. After therapy, pt sitting in recliner with call light/phone in reach. All needs met in room. OT Short Term Goals Short Term Goals Time Frame: Oct 11, 2019 Toileting hygiene: 4 Lower body dressin OT Assisted Goals Group Fitness Instructor Goals Time Frame: Oct 25, 2019 Eating (QC): 6 (met) Oral Hygiene (QC): 6 (met) Toileting Hygiene (QC): 6 (met) Shower/Bathe Self (QC): 5 (met) Upper Body Dressing (QC): 6 (met) Lower Body Dressing (QC): 6 (met) On/Off Footwear (QC): 5 (met) Additional Goals: 1-Demonstrate ADL Tasks, 2-Verbalize Understanding, 3-Im proveStrength/[place]asper 1=Demonstrate adherence to instructed precautions during ADL tasks. 2=Patient will verbalize/demonstrate understanding of assistive devices/modifications for ADL. 3=Patient will improve strength/tolerance for activity to enable patient to perform ADL's. OT Education/Plan Problem List/Assessment Assessment: Decreased Activ Tolerance, Impaired Self-Care Skills Discharge Recommendations Plan/Recommendations: Continue POC Treatment Plan/Plan of Care Patient would benefit from OT for education, treatment and training to promote independence in ADL's, mobility, safety and/or upper extremity function for ADL's. Plan of Care: ADL Retraining, Functional Mobility, Group Exercise/Act as Ind, UE Funct Exercise/Act Treatment Duration: Oct 25, 2019 Frequency: At least 5 of 7 days/Wk (IRF) Estimated Hrs Per Day: 1.5 hours per day Agreement: Yes Rehab Potential: Fair Time/GCodes Start Time: 07:30 Stop Time: 09:00 Total Time Billed (hr/min): 90 Billed Treatment Time 1 visit-ADL 5 (80 min) EX 1 (10 min) JOELLE JI Oct 16, 2019 08:49
[2019-10-16] MEDS: ASPIRIN E.C. 81 MG (ECOTRIN) TAB PO SCH (08:52)
[2019-10-16] MEDS: TRIAMTERENE/HCTZ 75-50 (MAXZIDE,DYAZIDE) TABLET PO SCH (08:52)
[2019-10-16] MEDS: METOCLOPRAMIDE 5 MG (REGLAN) TAB PO SCH ×2 (08:52→22:17)
[2019-10-16] MEDS: lisINopril 40 MG (PRINIVIL) TABLET PO SCH (08:52)
[2019-10-16] MEDS: CARVEDILOL 12.5 MG (COREG) TABLET PO SCH ×4 (08:52→22:17)
[2019-10-16 09:00] VITALS: BP 116/55
[2019-10-16] MEDS: polyethylene glycoL POWDER 17 GM (MIRALAX) PACK PO SCH ×2 (09:04→22:59)
[2019-10-16] MEDS: SENNA W/DOCUSATE (SENOKOT S) TABLET PO SCH ×2 (09:04→22:17)
[2019-10-16] MEDS: DOCUSATE SODIUM 100 MG (COLACE) CAP PO SCH ×2 (09:04→22:17)
[2019-10-16] MEDS: MICONAZOLE 2% POWDER (DESENEX AF) 90 GM TOP SCH ×2 (09:05→22:22)
[2019-10-16] MEDS: MICONAZOLE NITRATE 2% CRM 30 GM TP SCH ×2 (09:05→22:22)
--- NOTE | 2019-10-16 09:15 | PM&R Progress Note ---
Subjective HPI/CC On Admission Date Seen by Provider: Oct 16, 2019 Time Seen by Provider: 09:15 Subjective/Events-last exam Coreg was dropped down to 12.[address] Tyler She thought the Jenny caused drowsiness Going home with family tomorrow Plan on discharge tomorrow Conferred with RN Checked meds and labs Reviewed therapy notes Review of Systems General: Fatigue, Malaise Neurological: Weakness Objective Exam Vital Signs Vital Signs Date Time Temp Pulse Resp B/P (MAP) Pulse Ox O2 Delivery O2 Flow Rate FiO2 10/16/19 18:27 36.0 69 18 123/59 (80) 94 Room Air Capillary Refill : Less Than 3 Seconds General Appearance: No Apparent Distress, WD/WN, Anxious, Chronically ill, Obese HEENT: PERRL/EOMI, Normal ENT Inspection, Pharynx Normal Neck: Full Range of Motion, Normal Inspection, Non Tender, Supple, Carotid Bruit Respiratory: Chest Non Tender, Lungs Clear, Normal Breath Sounds, No Accessory Muscle Use, No Respiratory Distress Cardiovascular: Regular Rate, Rhythm, No Edema, No Gallop, No JVD, No Murmur, Normal Peripheral Pulses Gastrointestinal: Normal Bowel Sounds, No Organomegaly, No Pulsatile Mass, Non Tender, Soft Back: Normal Inspection, No CVA Tenderness, No Vertebral Tenderness Extremity: Normal Capillary Refill, Normal Inspection, Normal Range of Motion, Non Tender, No Calf Tenderness, No Pedal Edema Neurologic/Psychiatric: Alert, Oriented x3, No Motor/Sensory Deficits, Normal Mood/Affect, clip loading machine feeder II-XII Norm as Tested, Abnormal Gait, Motor Weakness (genera lized weakness all extremities) Skin: Normal Color, Warm/Dry Lymphatic: No Adenopathy Results/Procedures Lab Laboratory Tests 10/16/19 04:20 Patient resulted labs reviewed. FIM Transfers Therapy Code Descriptions/Definitions Functional [place] Measure: 0=Not Assessed/NA 4=Minimal Assistance 1=Total Assistance 5=Supervision or Setup 2=Maximal Assistance 6=Modified [place] 3=Moderate Assistance 7=Complete IndependenceSCALE: Activities may be completed with or without assistive devices. 8-Djubpnlnrw-ebvdymd completes the activity by him/herself with no assistance from a helper. 5-Set-up or Clean-up Assistance-helper sets up or cleans up; patient completes activity. [place] assists only prior to or following the activity. 4-Supervision or Touching Assistance-helper provides verbal cues and/or touching/steadying and/or contact guard assistance as patient completes activity. Assistance may be provided throughout the activity or intermittently. 3-Partial/Moderate Assistance-helper does LESS THAN HALF the effort. [place] lifts, holds or supports trunk or limbs, but provides less than half the effort. 2-Substantial/Maximal Assistance-helper does MORE THAN HALF the effort. [place] lifts or holds trunk or limbs and provides more than half the effort. 8-Gmgyocdad-myhvty does ALL the effort. Patient does none of the effort to complete the activity. Or, the assistance of 2 or more helpers is required for the patient to complete the activity. If activity was not attempted, code reason: 7-Patient Refused. 9-Not Applicable-not attempted and the patient did not perform the activity before the current illness, exacerbation or injury. 10-Not Attempted due to Environmental Limitations-(lack of equipment, weather restraints, etc.). 88-Not Attempted due to Medical Conditions or Safety Concerns. Roll Left to Right (QC): 6 Sit to Lying (QC): 6 Sit to Stand (QC): 5 Chair/Fui-ok-Svuec Xfer(QC): 5 Car Transfer (QC): 6 Gait Training Does the Patient Walk?: Yes Distance: 10 Walk 10 feet (QC): 5 Walk 50 ft with 2 Turns(QC): 5 Walk 150 ft (QC): 5 Walking 10ft/uneven surface-QC: 3 Gait Persons Needed: 1 Gait Assistive Device: FWW Wheelchair Training Does the Pt Use a Wheelchair?: No Wheel 50 ft with 2 turns (QC): 9 Wheel 150 ft (QC): 9 Stair Training 1 Step (curb) (QC): 4 4 Steps (QC): 88 12 Steps (QC): 88 Balance Picking up an Object (QC): 88 (NT due to poor strength) ADL-Treatment Eating (QC): 6 (Using clinical judgement, pt demonstrates the ability to complete own meal set up and uses regular utensils to eat.) Oral Hygiene (QC): 6 Bathing Location: L Arm, R Arm, L Upper Leg, R Upper Leg, L Lower Leg (including foot), R Lower Leg (including foot), Chest, Abdomen, Buttocks, Perineal Area Shower/Bathe Self (QC): 6 Upper Body Dressing (QC): 6 Lower Body Dressing (QC): 6 On/Off Footwear (QC): 6 Toileting Hygiene (QC): 6 Toilet Transfer (QC): 6 Assessment/Plan Assessment and Plan Assess & Plan/Chief Complaint Assessment: Debility Severe weakness Near syncope HTN GERD Glaucoma Gastroparesis Edema legs Constipation resolved 10/07/19 Nocturia Plan: IRF protocol Home meds Monitor BP PRINCESS wraps to legs BM treatment change to prn now Increase ADL's Change time of Coreg in case that is causing nocturia 10/09/19: Check urine sample with an in & out cath Schedule Reglan twice daily Monitor patient progress closely may need swing bed afterwards or to replace the structure therapy program 10/10/19: Continue bowel regimen Consult for abdominal pain and CT scan abnormality Continue therapy patient much improved today 10/11/19: Colonoscopy was originally scheduled with Dr. Astorga upon Dr. Alicea's request but daughter told her that she was fearful of a perforation so she doesn't want the Colonoscopy now Monitor low blood pressure it seems to be causing some fatigue Continue leg wraps with princess wraps 10/12/19: Monitor blood pressure closely but she does have a lot of variability of which would be impossible to completely resolve while in in-patient rehab Avoid Hypotension Monitor bowel function and abdominal pain Colonoscopy is in out-patient as long as she doesn't fear perforation 10/14/19: Monitor BP Fine tune therapies DC planned soon 10/15/19: Monitor BP Coreg increased dose to be evaluated by Dr Tyler May need skilled or AL? 10/16/19: DC home tomorrow BP monitoring Close f/u PCP (1) Debility (2) Weakness generalized Status: Acute (3) Transient hypotension Status: Acute (4) Near syncope Status: Acute (5) Microcytic anemia Status: Acute (6) HTN (hypertension) Status: Acute (7) Dyspnea on exertion Status: Acute MARKO ANDERS DO Oct 16, 2019 09:15
[2019-10-16] MEDS: BRIMONIDINE 0.2% (ALPHAGAN) OPHTH SOLN 5 ML BTL OS SCH ×3 (10:00→22:23)
--- NOTE | 2019-10-16 10:00 | Progress Note - Cardiology ---
Cardiology SOAP Progress Note Subjective: Didn't take carvedilol last night because was concerned about "low" bp (SBP 108 mmHg). Then was hypertensive this am and received clonidine. Now tired and sleepy No cp or palp or syncope or shortness of breath at rest No focal weakness No n/v/d Objective: I&O/Vital Signs 10/16/19 10/16/19 04:00 05:04 Temp 36.7 Pulse 82 77 Resp 18 18 B/P (MAP) 178/81 (113) 143/67 (92) Pulse Ox 95 92 O2 Delivery Room Air Room Air 10/16/19 00:00 Intake Total 1300 ml Balance 1300 ml Weight (Pounds): 188 Weight (Ounces): 1.6 Weight (Calculated Kilograms): 85.871340 Constitutional: AAO x 3, PERRL, well-developed, well-nourished Respiratory: chest is bilaterally symmetric, lungs clear to auscultation Cardiovascular: regular rate-rhythm, S1 and S2 Gastrointestional: soft, audible bowel sounds Extremities: normal range of motion, non-tender, other Neurologic/Psychiatric: no motor/sensory deficits, alert, normal mood/affect, oriented x 3, other Skin: normal color, warm/dry Results/Procedures: Labs Laboratory Tests 10/16/19 04:20: White Blood Count 8.7, Red Blood Count 4.39, Hemoglobin 13.6, Hematocrit 40, Mean Corpuscular Volume 90, Mean Corpuscular Hemoglobin 31, Mean Corpuscular Hemoglobin Concent 34, Red Cell Distribution Width 14.0, Platelet Count 236, Mean Platelet Volume 10.0, Neutrophils (%) (Auto) 61, Lymphocytes (%) (Auto) 21, Monocytes (%) (Auto) 14H, Eosinophils (%) (Auto) 4, Basophils (%) (Auto) 1, Neutrophils # (Auto) 5.3, Lymphocytes # (Auto) 1.8, Monocytes # (Auto) 1.2H, Eosinophils # (Auto) 0.4H, Basophils # (Auto) 0.0, Sodium Level 134L, Potassium Level 4.1, Chloride Level 103, Carbon Dioxide Level 21, Anion Gap 10, Blood Urea Nitrogen 15, Creatinine 0.91, Estimat Glomerular Filtration Rate 59, BUN/Creatinine Ratio 16, Glucose Level 102, Calcium Level 8.2L, Corrected Calcium 8.9, Total Bilirubin 0.6, Aspartate Amino Transf (AST/SGOT) 16, Alanine Aminotransferase (ALT/SGPT) 13, Alkaline Phosphatase 64, Total Protein 5.7L, Albumin 3.1L Laboratory Tests 10/15/19 04:40 10/16/19 04:20 A/P: Assessment: Somnolence on 10/15/19 and 10/16/19 - ? related to clonidine Hypertension Worsening leg swelling: likely due to venous insufficiency and amlodipine use Gen weakness and debility Diverticulitis - Medical services managing Echocardiogram of October 03, [address] Zamudio showed moderate LVH. LA mod dilated. Mitral valve calcification. Mod TR. PASP 45-50mmHg Acute on chronic mild diastolic congestive heart failure - clinically compensated MPI of October 03, [address] Zamudio showed no evidence of ischemia or infarction Plan: I had a detailed discussion with her Will reduce carvedilol and have advised compliance. Sporadic use of carvedilol leads to bouts of hypertension that are then treated with prn clonidine that caio ds to somnolence Outpatient f/u is advised with Dr Valerio (her lever tender) within a discharge from the hospital MUSA SOUTH MD FACP FAC CCDS Oct 16, 2019 10:00
[2019-10-16] MEDS: TIMOLOL MALEATE 0.5% 5 ML (TIMOPTIC) BTL OS SCH ×2 (10:01→22:23)
--- NOTE | 2019-10-16 11:25 | Physical Therapy Daily Note ---
PT Daily Note-Current Subjective Pt in recliner and agrees to tx. Pt stated at home she uses FWW outdoors and 4WW inside. Pt BP medicine has been changed causing d/c date to change. Pt. inquires about being up ad jelena but this MUNICIPAL FIREFIGHTER advises it best to wait until BP med change is assessed a day or so. Pain Location: No Pain Reported Mental Status Patient Orientation: Person, Place, Time, Situation, Normal For Age Transfers SCALE: Activities may be completed with or without assistive devices. 5-Ctqzijkjhr-vhotcuf completes the activity by him/herself with no assistance from a helper. 5-Set-up or Clean-up Assistance-helper sets up or cleans up; patient completes activity. [place] assists only prior to or following the activity. 4-Supervision or Touching Assistance-helper provides verbal cues and/or touching/steadying and/or contact guard assistance as patient completes activity. Assistance may be provided throughout the activity or intermittently. 3-Partial/Moderate Assistance-helper does LESS THAN HALF the effort. [place] lifts, holds or supports trunk or limbs, but provides less than half the effort. 2-Substantial/Maximal Assistance-helper does MORE THAN HALF the effort. [place] lifts or holds trunk or limbs and provides more than half the effort. 2-Mdmzxdbhb-nbuzkj does ALL the effort. Patient does none of the effort to complete the activity. Or, the assistance of 2 or more helpers is required for the patient to complete the activity. If activity was not attempted, code reason: 7-Patient Refused. 9-Not Applicable-not attempted and the patient did not perform the activity before the current illness, exacerbation or injury. 10-Not Attempted due to Environmental Limitations-(lack of equipment, weather restraints, etc.). 88-Not Attempted due to Medical Conditions or Safety Concerns. Roll Left & Right (QC): 6 Sit to Lying (QC): 6 Lying to Sitting/Side of Bed(Q: 6 Sit to Stand (QC): 6 Chair/Nmd-om-Uqzuu Xfer(QC): 6 Toilet Transfer (QC): 6 Car Transfer (QC): 6 Weight Bearing Full Weight Bearing Full Weight Bearing Gait Training Does the Patient Walk?: Yes Distance: 150 Walk 10 feet (QC): 6 Walk 50 ft with 2 Turns(QC): 6 Walk 150 ft (QC): 6 Walking 10ft/uneven surface-QC: 6 Gait Persons Needed: 1 Gait Assistive Device: Walker 4 Wheeled Pt amb from recliner to toilet and back to bed in room. Pt amb around unit with 4WW and enters gym. Pt uses FWW and // bars to ascend/descend curb step and on uneven surface. Pt uses 4WW to amb around unit rest of tx. Will advance to up ad jelena after BP meds change is assessed Wheelchair Training Does the Pt Use a Wheelchair?: No Stair Training Stair Training: Handrails/: 1 handrail #of Steps: 1 1 Step (curb) (QC): 6 4 Steps (QC): 7 12 Steps (QC): 7 At home, pt has a single curb step to enter back door. Pt has a hand rail on L side ascending and pt stated family is present during this process. Pt has a ramp in replacement of stairs in other entry and the house is handicap accessible. Balance Picking up an Object (QC): 6 Exercises Seated Therapy Exercises: Long arc quads, Glut set Seated Reps: 15 Standing: Hamstring curls, Heel/toe raises, Marching Standing Reps: 15 Treatments Pt amb to toilet upon arrival and returns to bed in room. Pt performs sit to supine, rolling L to R, and supine to sit indep. Pt amb on unit and enters gym. Pt takes seated rest break followed by ascending/descending curb in // bars using L rail only. Pt amb across uneven surface and picks up an object. Pt takes another seated rest break followed by standing and seated exercises. Pt amb back to room and returns to recliner, pt left with all needs met and call light in hand. Assessment Current Status: Good Progress Pt is Mod Indep with all mobility. Pt requires few seated rest breaks with tx. PT Short Term Goals Short Term Goals Time Frame: Oct 11, 2019 Roll Left & Right: 6 Sit to lyin Lying to sitting on side of be: 4 Sit to stand: 4 Chair/fna-ks-fhffj transfer: 4 Walk 10 feet: 4 Walk 50 feet with two turns: 4 Walk 150 feet: 4 PT Assisted Goals Information Services Vice President Goals PT Information Services Vice President Goals Time Frame: Oct 25, 2019 Roll Left & Right (QC): 6 Sit to Lying (QC): 6 Lying-Sitting on Side/Bed(QC): 6 Sit to Stand (QC): 6 Chair/Ort-qx-Bldml Xfer(QC): 6 Toilet Transfer (QC): 6 Car Transfer (QC): 6 Does the Patient Walk: Yes Walk 10 feet (QC): 6 Walk 50ft with 2 Turns (QC): 6 Walk 150 ft (QC): 6 Walking 10ft on Uneven Surface: 6 1 Step (curb) (QC): 4 4 Steps (QC): 4 12 Steps (QC): 88 Picking up an Object (QC): 4 Does the Pt use WC or Scooter?: No Wheel 50 feet with 2 turns (QC: 9 Wheel 150 feet: 9 PT Plan Treatment/Plan Treatment Plan: Continue Plan of Care Treatment Plan: Bed Mobility, Education, Functional Activity [place], Functional Strength, Group Therapy, Gait, Safety, Therapeutic Exercise, Transfers Treatment Duration: Oct 25, 2019 Frequency: At least 5 of 7 days/Wk (IRF) Estimated Hrs Per Day: 1.5 hours per day Patient and/or Family Agrees t: Yes Safety Risks/Education Patient Education: Gait Training, Transfer Techniques, Steps, Correct Positioning, Safety Issues Teaching Recipient: Patient Teaching Methods: Demonstration, Discussion Response to Teaching: Verbalize Understanding, Return Demonstration Time/GCodes Time In: 1030 Time Out: 1130 Total Billed Treatment Time: 60 Total Billed Treatment 1, FA x3 (45m), Ex (15m) CEDRIC DODD MUNICIPAL FIREFIGHTER Oct 16, 2019 11:25
--- NOTE | 2019-10-16 14:09 | NUR ---
CM/SS DISCHARGE PLANNING Patient's discharge anticipated tomorrow, held today due to BP Rx change and monitoring for any negative signs/symptoms. [facility]: Initiated referral with patient's chosen agency, [facility], after review of Medicare Compare information. Agency understands that RN PT and OT will be ordered and that final discharge information will be forwarded when available.
--- NOTE | 2019-10-16 15:04 | Physical Therapy Daily Note ---
PT Daily Note-Current Subjective Pt in recliner asleep upon arrival and agrees to tx. Pt is eager to go home tomorrow. Mental Status Patient Orientation: Person, Place, Time, Situation Transfers SCALE: Activities may be completed with or without assistive devices. 2-Yhdrwuwyiy-lgriktg completes the activity by him/herself with no assistance from a helper. 5-Set-up or Clean-up Assistance-helper sets up or cleans up; patient completes activity. [place] assists only prior to or following the activity. 4-Supervision or Touching Assistance-helper provides verbal cues and/or touching/steadying and/or contact guard assistance as patient completes activity. Assistance may be provided throughout the activity or intermittently. 3-Partial/Moderate Assistance-helper does LESS THAN HALF the effort. [place] lifts, holds or supports trunk or limbs, but provides less than half the effort. 2-Substantial/Maximal Assistance-helper does MORE THAN HALF the effort. [place] lifts or holds trunk or limbs and provides more than half the effort. 9-Ehutbpgsj-indawm does ALL the effort. Patient does none of the effort to complete the activity. Or, the assistance of 2 or more helpers is required for the patient to complete the activity. If activity was not attempted, code reason: 7-Patient Refused. 9-Not Applicable-not attempted and the patient did not perform the activity before the current illness, exacerbation or injury. 10-Not Attempted due to Environmental Limitations-(lack of equipment, weather restraints, etc.). 88-Not Attempted due to Medical Conditions or Safety Concerns. Weight Bearing Full Weight Bearing Full Weight Bearing Gait Training Does the Patient Walk?: Yes Distance: 150 Gait Assistive Device: Walker 4 Wheeled Pt amb from recliner to toilet to gym and performed activities. Pt amb back to recliner from gym. Exercises NuStep Minutes: 15 NuStep Workload: 6 Treatments Pt used restroom followed by amb to gym to use NuStep. Pt performed NuStep for 15 mins, this contributes to gait stability and cardio/endurance. Pt amb back to recliner in room. Pt left with all needs met, call light in hand. Assessment Current Status: Good Progress Pt overall increased strength, safety, endurance, and balance. PT Short Term Goals Short Term Goals Time Frame: Oct 11, 2019 Roll Left & Right: 6 Sit to lyin Lying to sitting on side of be: 4 Sit to stand: 4 Chair/rfz-fx-wkoub transfer: 4 Walk 10 feet: 4 Walk 50 feet with two turns: 4 Walk 150 feet: 4 PT Quality Process Lead Goals Quality Process Lead Goals PT Quality Process Lead Goals Time Frame: Oct 25, 2019 Roll Left & Right (QC): 6 Sit to Lying (QC): 6 Lying-Sitting on Side/Bed(QC): 6 Sit to Stand (QC): 6 Chair/Uda-wh-Xsqcs Xfer(QC): 6 Toilet Transfer (QC): 6 Car Transfer (QC): 6 Does the Patient Walk: Yes Walk 10 feet (QC): 6 Walk 50ft with 2 Turns (QC): 6 Walk 150 ft (QC): 6 Walking 10ft on Uneven Surface: 6 1 Step (curb) (QC): 4 4 Steps (QC): 4 12 Steps (QC): 88 Picking up an Object (QC): 4 Does the Pt use WC or Scooter?: No Wheel 50 feet with 2 turns (QC: 9 Wheel 150 feet: 9 PT Plan Treatment/Plan Treatment Plan: Continue Plan of Care Treatment Plan: Bed Mobility, Education, Functional Activity [place], Functional Strength, Group Therapy, Gait, Safety, Therapeutic Exercise, Transfers Treatment Duration: Oct 25, 2019 Frequency: At least 5 of 7 days/Wk (IRF) Estimated Hrs Per Day: 1.5 hours per day Patient and/or Family Agrees t: Yes Safety Risks/Education Patient Education: Gait Training, Correct Positioning, Safety Issues Teaching Recipient: Patient Teaching Methods: Discussion Response to Teaching: Verbalize Understanding Time/GCodes Time In: 1330 Time Out: 1400 Total Billed Treatment Time: 30 Total Billed Treatment 1, FA (15m), Ex (15m) CEDRIC DODD OFFAL SEPARATOR Oct 16, 2019 15:04
[2019-10-16 18:27] VITALS: BP 123/59
[2019-10-16] MEDS: ALPRAZolam 0.25 MG (XANAX) TAB PO PRN (22:17)
[2019-10-16] MEDS: MIRTAZAPINE 15 MG (REMERON) TAB PO SCH (22:17)
[2019-10-16] MEDS: PANTOPRAZOLE 40 MG (PROTONIX) TAB PO SCH (22:23)
[2019-10-17 05:38] VITALS: BP 126/58
[2019-10-17] MEDS ORDERED: ALPR0.254 PO (06:45)
[2019-10-17] MEDS ORDERED: MIRT-47 PO (06:45)
[2019-10-17] MEDS ORDERED: METO5TAB2 PO (06:45)
[2019-10-17] MEDS ORDERED: CARV12.53 PO (06:45)
--- NOTE | 2019-10-17 06:47 | D/C HH Face to Face Order ---
D/C Face to Face Orders Reconcile Patient Problems Problems Reviewed?: Yes Instructions for Patient [facility] Patient Instructions/FollowUp: Dr Alicea in 1 week Physician to follow Patient: iNxon Discharge Diet for Home: No Restrictions Patient Problems: Variable HTN Patient Data-Allergies,Ht & Wt Patient Allergies: Coded Allergies: Penicillins (Verified Allergy, Unknown, 10/01/19) Height (Feet): 5 Height (Inches): 2.00 Weight (Pounds): 188 Weight (Ounces): 1.6 Home Health Need/Face to Face Date of Face to Face: Oct 17, 2019 Clinical Findings: Generalized weakness and fatigue, Instability, Muscle weakness I have seen Pt gzpe-ju-evnj: Yes Discharged To: Home Diagnosis/Conditions: Variable HTN Patient is Homebound due to: CognItive deficits, Muscle weakness Homebound Status Due to the above stated illness, injury or surgical procedure (medical condition or diagnosis) and associated clinical findings, the patient is homebound because of his/her inability to leave home except with aid of a supportive device and/or person AND leaving the home requires a considerable and taxing effort or is medically contraindicated. Pt req the following assistanc: [facility] Nursing Orders Home Health Services Order: Nursing Services, Auto Mechanic Apprentice-Evaluate & Treat, Physical Therapy-Evaluate & Treat Certify Stmt I certify that this patient is under my care and that I, a nurse practitioner or a physician; a drug safety assistant working with me, had a face to face encounter that - meets the physician face to face encounter requirements with this patient as dated. MARKO ANDERS DO Oct 17, 2019 06:47
--- NOTE | 2019-10-17 06:48 | Discharge Summary ---
Diagnosis/Chief Complaint Date of Admission Oct 04, 2019 at 10:05 Date of Discharge Discharge Date: Oct 17, 2019 Discharge Time: 10:00 Discharge Diagnosis Assessment: Debility Severe weakness Near syncope HTN GERD Glaucoma Gastroparesis Edema legs Constipation resolved 10/07/19 Nocturia Plan: IRF protocol Home meds Monitor BP PRINCESS wraps to legs BM treatment change to prn now Increase ADL's Change time of Coreg in case that is causing nocturia 10/09/19: Check urine sample with an in & out cath Schedule Reglan twice daily Monitor patient progress closely may need swing bed afterwards or to replace the structure therapy program 10/10/19: Continue bowel regimen Consult for abdominal pain and CT scan abnormality Continue therapy patient much improved today 10/11/19: Colonoscopy was originally scheduled with Dr. Astorga upon Dr. Alicea's request but daughter told her that she was fearful of a perforation so she doesn't want the Colonoscopy now Monitor low blood pressure it seems to be causing some fatigue Continue leg wraps with princess wraps 10/12/19: Monitor blood pressure closely but she does have a lot of variability of which would be impossible to completely resolve while in in-patient rehab Avoid Hypotension Monitor bowel function and abdominal pain Colonoscopy is in out-patient as long as she doesn't fear perforation 10/14/19: Monitor BP Fine tune therapies DC planned soon 10/15/19: Monitor BP Coreg increased dose to be evaluated by Dr Tyler May need skilled or AL? 10/16/19: DC home tomorrow BP monitoring Close f/u PCP Discharge Summary Discharge Physical Examination Allergies: Coded Allergies: Penicillins (Verified Allergy, Unknown, 10/01/19) Vitals & I&Os Vital Signs Date Time Temp Pulse Resp B/P (MAP) Pulse Ox O2 Delivery O2 Flow Rate FiO2 10/17/19 09:09 64 18 150/67 (94) 10/17/19 09:00 96 Room Air 10/17/19 05:38 36.2 General Appearance: Alert, Oriented X3 Respiratory: Clear to Auscultation Cardiovascular: Regular Rate Neuro: Normal Gait, Normal Speech, Strength at 5/5 X4 Ext Psych/Mental Status: Mental Status NL Hospital Course Was the Problem List Reviewed?: Yes Hospital Course: Pt had an uneventful two week hospital course. She was admitted for weakness and severe labile malignant type of hypertension. She was assessed by Dr. Astorga at Dr. Alicea's request for abnormal CT scan. She declined colonoscopy as recommended and contemplated that as an outpatient because she was fearful about perforation. Overall she was able to participate in all therapy. BP management per Dr. Tyler ultimatelyrequiredmultiple med changes along with a Maxzide addition. Will monitor for hyponatremia closely with that medication, checking a BNP next week. Overall she did very well. BP was satisfactory to her and she was deemed stable for DC with home care out of [place] with PT and OT and go home with family. Labs (last 24 hrs) Laboratory Tests 10/05/19 06:10: White Blood Count 8.3, Red Blood Count 4.72, Hemoglobin 14.7, Hematocrit 42, Mean Corpuscular Volume 89, Mean Corpuscular Hemoglobin 31, Mean Corpuscular Hemoglobin Concent 35, Red Cell Distribution Width 13.8, Platelet Count 198, Mean Platelet Volume 9.3, Neutrophils (%) (Auto) 66, Lymphocytes (%) (Auto) 21, Monocytes (%) (Auto) 11, Eosinophils (%) (Auto) 2, Basophils (%) (Auto) 0, Neutrophils # (Auto) 5.5, Lymphocytes # (Auto) 1.7, Monocytes # (Auto) 0.9, Eosinophils # (Auto) 0.2, Basophils # (Auto) 0.0, Sodium Level 135, Potassium Level 3.9, Chloride Level 102, Carbon Dioxide Level 24, Anion Gap 9, Blood Urea Nitrogen 10, Creatinine 0.68, Estimat Glomerular Filtration Rate > 60, BUN/Creatinine Ratio 15, Glucose Level 98, Calcium Level 8.4L, Corrected Calcium 9.0, Total Bilirubin 1.2H, Aspartate Amino Transf (AST/SGOT) 17, Alanine Aminotransferase (ALT/SGPT) 13, Alkaline Phosphatase 70, Total Protein 5.9L, Albumin 3.3 10/09/19 05:25: White Blood Count 7.0, Red Blood Count 4.32L, Hemoglobin 13.6, Hematocrit 39, Mean Corpuscular Volume 89, Mean Corpuscular Hemoglobin 32, Mean Corpuscular Hemoglobin Concent 35, Red Cell Distribution Width 13.4, Platelet Count 190, Mean Platelet Volume 10.0, Neutrophils (%) (Auto) 59, Lymphocytes (%) (Auto) 25, Monocytes (%) (Auto) 13H, Eosinophils (%) (Auto) 3, Basophils (%) (Auto) 0, Neutrophils # (Auto) 4.1, Lymphocytes # (Auto) 1.7, Monocytes # (Auto) 0.9, Eosinophils # (Auto) 0.2, Basophils # (Auto) 0.0, Sodium Level 136, Potassium Level 3.9, Chloride Level 104, Carbon Dioxide Level 23, Anion Gap 9, Blood Urea Nitrogen 9, Creatinine 0.69, Estimat Glomerular Filtration Rate > 60, BUN/Creatinine Ratio 13, Glucose Level 96, Calcium Level 8.2L, Corrected Calcium 9.0, Total Bilirubin 0.8, Aspartate Amino Transf (AST/SGOT) 17, Alanine Aminotransferase (ALT/SGPT) 10, Alkaline Phosphatase 60, Total Protein 5.7L, Albumin 3.0L 10/09/19 13:25: Urine Color YELLOW, Urine Clarity CLEAR, Urine pH 6.5, Urine Specific Interior 1.010L, Urine Protein NEGATIVE, Urine Glucose (UA) NEGATIVE, Urine Ketones NEGATIVE, Urine Nitrite NEGATIVE, Urine Bilirubin NEGATIVE, Urine Urobilinogen 2.0, Urine Leukocyte Esterase NEGATIVE, Urine RBC (Auto) NEGATIVE, Urine RBC NONE, Urine WBC RARE, Urine Squamous Epithelial Cells 2-5, Urine Crystals NONE, Urine Bacteria NEGATIVE, Urine Casts NONE, Urine Mucus SMALLH, Urine Culture Indicated NO 10/15/19 04:40: White Blood Count 7.8, Red Blood Count 4.25L, Hemoglobin 13.4, Hematocrit 38, Mean Corpuscular Volume 90, Mean Corpuscular Hemoglobin 32, Mean Corpuscular Hemoglobin Concent 35, Red Cell Distribution Width 13.6, Platelet Count 209, Mean Platelet Volume 10.2, Neutrophils (%) (Auto) 59, Lymphocytes (%) (Auto) 26, Monocytes (%) (Auto) 11, Eosinophils (%) (Auto) 4, Basophils (%) (Auto) 0, Neutrophils # (Auto) 4.6, Lymphocytes # (Auto) 2.1, Monocytes # (Auto) 0.8, Eosinophils # (Auto) 0.3, Basophils # (Auto) 0.0, Sodium Level 131L, Potassium Level 4.0, Chloride Level 101, Carbon Dioxide Level 21, Anion Gap 9, Blood Urea Nitrogen 12, Creatinine 0.66, Estimat Glomerular Filtration Rate > 60, BUN/Creatinine Ratio 18, Glucose Level 108H, Calcium Level 7.9L, Magnesium Level 1.7 10/16/19 04:20: White Blood Count 8.7, Red Blood Count 4.39, Hemoglobin 13.6, Hematocrit 40, Mean Corpuscular Volume 90, Mean Corpuscular Hemoglobin 31, Mean Corpuscular Hemoglobin Concent 34, Red Cell Distribution Width 14.0, Platelet Count 236, Mean Platelet Volume 10.0, Neutrophils (%) (Auto) 61, Lymphocytes (%) (Auto) 21, Monocytes (%) (Auto) 14H, Eosinophils (%) (Auto) 4, Basophils (%) (Auto) 1, Neutrophils # (Auto) 5.3, Lymphocytes # (Auto) 1.8, Monocytes # (Auto) 1.2H, Eosinophils # (Auto) 0.4H, Basophils # (Auto) 0.0, Sodium Level 134L, Potassium Level 4.1, Chloride Level 103, Carbon Dioxide Level 21, Anion Gap 10, Blood Urea Nitrogen 15, Creatinine 0.91, Estimat Glomerular Filtration Rate 59, BUN/Creatinine Ratio 16, Glucose Level 102, Calcium Level 8.2L, Corrected Calcium 8.9, Total Bilirubin 0.6, Aspartate Amino Transf (AST/SGOT) 16, Alanine Aminotransferase (ALT/SGPT) 13, Alkaline Phosphatase 64, Total Protein 5.7L, Albumin 3.1L Pending Labs Laboratory Tests 10/05/19 06:10: White Blood Count 8.3, Red Blood Count 4.72, Hemoglobin 14.7, Hematocrit 42, Mean Corpuscular Volume 89, Mean Corpuscular Hemoglobin 31, Mean Corpuscular Hemoglobin Concent 35, Red Cell Distribution Width 13.8, Platelet Count 198, Mean Platelet Volume 9.3, Neutrophils (%) (Auto) 66, Lymphocytes (%) (Auto) 21, Monocytes (%) (Auto) 11, Eosinophils (%) (Auto) 2, Basophils (%) (Auto) 0, Neutrophils # (Auto) 5.5, Lymphocytes # (Auto) 1.7, Monocytes # (Auto) 0.9, Eosinophils # (Auto) 0.2, Basophils # (Auto) 0.0, Sodium Level 135, Potassium Level 3.9, Chloride Level 102, Carbon Dioxide Level 24, Anion Gap 9, Blood Urea Nitrogen 10, Creatinine 0.68, Estimat Glomerular Filtration Rate > 60, BUN/Creatinine Ratio 15, Glucose Level 98, Calcium Level 8.4, Corrected Calcium 9.0, Total Bilirubin 1.2, Aspartate Amino Transf (AST/SGOT) 17, Alanine Aminotransferase (ALT/SGPT) 13, Alkaline Phosphatase 70, Total Protein 5.9, Albumin 3.3 10/09/19 05:25: White Blood Count 7.0, Red Blood Count 4.32, Hemoglobin 13.6, Hematocrit 39, Mean Corpuscular Volume 89, Mean Corpuscular Hemoglobin 32, Mean Corpuscular Hemoglobin Concent 35, Red Cell Distribution Width 13.4, Platelet Count 190, Mean Platelet Volume 10.0, Neutrophils (%) (Auto) 59, Lymphocytes (%) (Auto) 25, Monocytes (%) (Auto) 13, Eosinophils (%) (Auto) 3, Basophils (%) (Auto) 0, Neutrophils # (Auto) 4.1, Lymphocytes # (Auto) 1.7, Monocytes # (Auto) 0.9, Eosinophils # (Auto) 0.2, Basophils # (Auto) 0.0, Sodium Level 136, Potassium Level 3.9, Chloride Level 104, Carbon Dioxide Level 23, Anion Gap 9, Blood Urea Nitrogen 9, Creatinine 0.69, Estimat Glomerular Filtration Rate > 60, BUN/Creatinine Ratio 13, Glucose Level 96, Calcium Level 8.2, Corrected Calcium 9.0, Total Bilirubin 0.8, Aspartate Amino Transf (AST/SGOT) 17, Alanine Aminotransferase (ALT/SGPT) 10, Alkaline Phosphatase 60, Total Protein 5.7, Albumin 3.0 10/09/19 13:25: Urine Color YELLOW, Urine Clarity CLEAR, Urine pH 6.5, Urine Specific Interior 1.010, Urine Protein NEGATIVE, Urine Glucose (UA) NEGATIVE, Urine Ketones NEGATIVE, Urine Nitrite NEGATIVE, Urine Bilirubin NEGATIVE, Urine Urobilinogen 2.0, Urine Leukocyte Esterase NEGATIVE, Urine RBC (Auto) NEGATIVE, Urine RBC NONE, Urine WBC RARE, Urine Squamous Epithelial Cells 2-5, Urine Crystals NONE, Urine Bacteria NEGATIVE, Urine Casts NONE, Urine Mucus SMALL, Urine Culture Indicated NO 10/15/19 04:40: White Blood Count 7.8, Red Blood Count 4.25, Hemoglobin 13.4, Hematocrit 38, Mean Corpuscular Volume 90, Mean Corpuscular Hemoglobin 32, Mean Corpuscular Hemoglobin Concent 35, Red Cell Distribution Width 13.6, Platelet Count 209, Mean Platelet Volume 10.2, Neutrophils (%) (Auto) 59, Lymphocytes (%) (Auto) 26, Monocytes (%) (Auto) 11, Eosinophils (%) (Auto) 4, Basophils (%) (Auto) 0, Neutrophils # (Auto) 4.6, Lymphocytes # (Auto) 2.1, Monocytes # (Auto) 0.8, Eosinophils # (Auto) 0.3, Basophils # (Auto) 0.0, Sodium Level 131, Potassium Level 4.0, Chloride Level 101, Carbon Dioxide Level 21, Anion Gap 9, Blood Urea Nitrogen 12, Creatinine 0.66, Estimat Glomerular Filtration Rate > 60, BUN/Creatinine Ratio 18, Glucose Level 108, Calcium Level 7.9, Magnesium Level 1.7 10/16/19 04:20: White Blood Count 8.7, Red Blood Count 4.39, Hemoglobin 13.6, Hematocrit 40, Mean Corpuscular Volume 90, Mean Corpuscular Hemoglobin 31, Mean Corpuscular Hemoglobin Concent 34, Red Cell Distribution Width 14.0, Platelet Count 236, Mean Platelet Volume 10.0, Neutrophils (%) (Auto) 61, Lymphocytes (%) (Auto) 21, Monocytes (%) (Auto) 14, Eosinophils (%) (Auto) 4, Basophils (%) (Auto) 1, Neutrophils # (Auto) 5.3, Lymphocytes # (Auto) 1.8, Monocytes # (Auto) 1.2, Eosinophils # (Auto) 0.4, Basophils # (Auto) 0.0, Sodium Level 134, Potassium Level 4.1, Chloride Level 103, Carbon Dioxide Level 21, Anion Gap 10, Blood Urea Nitrogen 15, Creatinine 0.91, Estimat Glomerular Filtration Rate 59, BUN/Creatinine Ratio 16, Glucose Level 102, Calcium Level 8.2, Corrected Calcium 8.9, Total Bilirubin 0.6, Aspartate Amino Transf (AST/SGOT) 16, Alanine Aminotransferase (ALT/SGPT) 13, Alkaline Phosphatase 64, Total Protein 5.7, Albumin 3.1 Discharge Home Medications: Active Scripts Active Triamterene-Hctz 75-50 mg Tab (Triamterene/Hydrochlorothiazid) 1 Each Tablet 1 Ea PO DAILY Metoclopramide HCl 5 Mg Tablet 5 Mg PO BID Alprazolam 0.25 Mg Tablet 0.25 Mg PO Q8H PRN Mirtazapine 15 Mg Tab.rapdis 7.5 Mg PO HS Carvedilol 12.5 Mg Tablet 12.5 Mg PO BID Reported Pred iW-Ynqb-Avpq 1-0.5-0.075% (Prednisoln Sp/Moxiflox/Bromfen) 5 Ml Drops Benazepril HCl 40 Mg Tab 40 Mg PO DAILY Colace (Docusate Sodium) 100 Mg Capsule 100 Mg PO DAILY PRN Aspirin EC (Aspirin) 81 Mg Tablet.dr 81 Mg PO DAILY Combigan Eye Drops (Brimonidine Tartrate/Timolol) 5 Ml Drops 1 Drop OS BID Enulose (Lactulose) 10 Gm/15 Ml Solution 15 Ml PO DAILY PRN Ondansetron HCl 4 Mg Tablet 0.4 Mg PO TID PRN Clonidine HCl 0.1 Mg Tablet 0.1 Mg PO DAILY PRN Amlodipine Besylate 5 Mg Tablet 10 Mg PO DAILY TAKES 2 (5MG) TABS Clotrimazole 15 Gm Cream..g. 1 Applic TOP DAILY PRN Cyanocobalamin Injection (Cyanocobalamin) 1,000 Mcg/Ml Inj 1,000 Mcg INJ MONTHLY Pantoprazole Sodium 40 Mg Tablet.dr 40 Mg PO 1900 Instructions to patient/family Please see electronic discharge instructions given to patient. Diagnosis/Problems Diagnosis/Problems (1) Debility (2) Weakness generalized Status: Acute (3) Transient hypotension Status: Acute (4) Near syncope Status: Acute (5) Microcytic anemia Status: Acute (6) HTN (hypertension) Status: Acute (7) Dyspnea on exertion Status: Acute Clinical Quality Measures DVT/VTE Risk/Contraindication: Risk Factor Score Per Nursin RFS Level Per Nursing on Admit: 4+=Very High MARKO ANDERS DO Oct 17, 2019 06:48
[2019-10-17 09:09] VITALS: BP 150/67
[2019-10-17] MEDS: ASPIRIN E.C. 81 MG (ECOTRIN) TAB PO SCH (09:10)
[2019-10-17] MEDS: METOCLOPRAMIDE 5 MG (REGLAN) TAB PO SCH (09:11)
[2019-10-17] MEDS: TRIAMTERENE/HCTZ 75-50 (MAXZIDE,DYAZIDE) TABLET PO SCH (09:11)
[2019-10-17] MEDS: DOCUSATE SODIUM 100 MG (COLACE) CAP PO SCH (09:11)
[2019-10-17] MEDS: lisINopril 40 MG (PRINIVIL) TABLET PO SCH (09:11)
[2019-10-17] MEDS: SENNA W/DOCUSATE (SENOKOT S) TABLET PO SCH (09:11)
[2019-10-17] MEDS: CARVEDILOL 12.5 MG (COREG) TABLET PO SCH (09:11)
[2019-10-17] MEDS: TIMOLOL MALEATE 0.5% 5 ML (TIMOPTIC) BTL OS SCH (09:12)
[2019-10-17] MEDS: MICONAZOLE NITRATE 2% CRM 30 GM TP SCH (09:12)
[2019-10-17] MEDS: BRIMONIDINE 0.2% (ALPHAGAN) OPHTH SOLN 5 ML BTL OS SCH ×2 (09:12→13:00)
[2019-10-17] MEDS: MICONAZOLE 2% POWDER (DESENEX AF) 90 GM TOP SCH (09:12)
[2019-10-17] MEDS: polyethylene glycoL POWDER 17 GM (MIRALAX) PACK PO SCH (09:54)
--- NOTE | 2019-10-17 11:14 | Progress Note - Cardiology ---
Cardiology SOAP Progress Note Subjective: Sitting up in a recliner at the bedside. She states she is going home today. No c/o CP, palpitations, syncope, near syncope. Objective: I&O/Vital Signs 10/17/19 10/17/19 10/17/19 05:38 09:00 09:09 Temp 36.2 Pulse 77 64 Resp 20 18 B/P (MAP) 126/58 (80) 150/67 (94) Pulse Ox 96 96 O2 Delivery Room Air Room Air 10/17/19 00:00 Intake Total 1200 ml Balance 1200 ml Weight (Pounds): 188 Weight (Ounces): 1.6 Weight (Calculated Kilograms): [id number] Constitutional: AAO x 3, PERRL, well-developed, well-nourished Respiratory: chest is bilaterally symmetric, lungs clear to auscultation Cardiovascular: regular rate-rhythm, S1 and S2 Gastrointestional: soft, audible bowel sounds Extremities: normal range of motion, non-tender, other Neurologic/Psychiatric: no motor/sensory deficits, alert, normal mood/affect, oriented x 3, other Skin: normal color, warm/dry A/P: Assessment: Somnolence on 10/15/19 and 10/16/19 - ? related to clonidine Hypertension Worsening leg swelling: likely due to venous insufficiency and amlodipine use Gen weakness and debility Diverticulitis - Medical services managing Echocardiogram of October 03, [address] Zamudio showed moderate LVH. LA mod dilated. Mitral valve calcification. Mod TR. PASP 45-50mmHg Acute on chronic mild diastolic congestive heart failure - clinically compensated MPI of October 03, [address] Zamudio showed no evidence of ischemia or infarction Plan: Continue current medication regimen Outpatient f/u is advised with Dr Valerio (her environmental compliance specialist) in 1-2 weeks with BMP/Mag level DENISE PACHECO Oct 17, 2019 11:14
[2019-10-17] MEDS ORDERED: TRIA1TAB5 PO (11:18)
--- NOTE | 2019-10-17 12:56 | Therapy Team Discharge Summary ---
Therapy Discharge Summary Discharge Recommendations Date of Discharge Occupational Therapy Pt admitted to ARU with generalized weakness. On admission pt required min assist with toileting, bathing, and LE dressing and was SBA for oral hygiene and upper body dressing. Skilled OT intervention focused on ADL training, transfers, strengthening, and safety. Pt made good progress with therapy and by discharge is completing basic self care tasks with modified independence. Pt met all OT LTG and will be discharging this date. D/c ARU OT at this time. Decreased Activ Tolerance, Impaired Self-Care Skills PT Specialty Trimmer Goals Longterm Goals PT Longterm Goals Time Frame: Oct 25, 2019 Roll Left to Right (QC): 6 Sit to Lying (QC): 6 Lying-Sitting on Side/Bed(QC): 6 Sit to Stand (QC): 6 Chair/Upk-id-Ybuij Xfer(QC): 6 Car Transfer (QC): 6 Does the Patient Walk: Yes Walk 10 feet (QC): 6 Walk 10ft-Uneven Surface(QC): 6 Walk 50ft with 2 Turns (QC): 6 Walk 150 ft (QC): 6 Does the Pt use WC or Scooter?: No Wheel 50 feet with 2 turns (QC: 9 1 Step (curb) (QC): 4 4 Steps (QC): 4 12 Steps (QC): 88 Picking up an Object (QC): 4 OT Longterm Goals Longterm Goals Time Frame: Oct 25, 2019 Eating (QC): 6 (met) Oral Hygiene (QC): 6 (met) Shower/Bathe Self (QC): 5 (met) Upper Body Dressing (QC): 6 (met) Lower Body Dressing (QC): 6 (met) On/Off Footwear (QC): 5 (met) Toileting Hygiene (QC): 6 (met) Toilet/Commode Transfer (QC): 6 Additional Goals: 1-Demonstrate ADL Tasks, 2-Verbalize Understanding, 3- ImproveStrength/Jasper 1=Demonstrate adherence to instructed precautions during ADL tasks. 2=Patient will verbalize/demonstrate understanding of assistive devices/modifications for ADL. 3=Patient will improve strength/tolerance for activity to enable patient to perform ADL's. HEATHER ZARAGOZA OT Oct 17, 2019 12:56
--- NOTE | 2019-10-17 13:00 | NUR ---
CM/SS DISCHARGE Patient states she is read to discharge today, feeling and looking better. HHC: Finalized with [facility]. IMM2 presented, discussed, signed, charted. Patient will contact her son regarding a sweet pickled fruit maker time, she is anticipating mid-afternoon. Updated unit RN.
--- NOTE | 2019-10-17 14:09 | Therapy Team Discharge Summary ---
Therapy Discharge Summary Discharge Recommendations Date of Discharge Physical Therapy Patient came to rehab with generalized weakness. Upon evaluation patient performed bed mobility with independence, supine to sit with min assist, sit to supine with mod assist, sit to stand with CGA, transfers with CGA, car transfer with mod assist (needs assist with both legs getting in and out), and ambulated 150' with a 4-wheeled walker with CGA (including 50' with at least 2 turns of 90 degrees but needs min assist to ambulate over an uneven surface). Patient has been performing bed mobility and transfer training, balance and endurance training, functional strengthening, stair training, gait training, and education. 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 Now, patient performs bed mobility and transfers with independence, independent with car transfer, ambulates 150' with a 4-wheeled walker with independence (including 50' with at least 2 turns of 90 degrees and 10' over an uneven surface), can go up and down 1 step using 1 handrail with independence, and can brain picker an object from the floor with independence. Patient is discharging from this facility today and will be discharged from PT at this time. Occupational Therapy Decreased Activ Tolerance, Impaired Self-Care Skills PT Fpc Goals Airway Controller Goals PT Airway Controller Goals Time Frame: Oct 25, 2019 Roll Left to Right (QC): 6 Sit to Lying (QC): 6 Lying-Sitting on Side/Bed(QC): 6 Sit to Stand (QC): 6 Chair/Jeq-qb-Hmdho Xfer(QC): 6 Car Transfer (QC): 6 Does the Patient Walk: Yes Walk 10 feet (QC): 6 Walk 10ft-Uneven Surface(QC): 6 Walk 50ft with 2 Turns (QC): 6 Walk 150 ft (QC): 6 Does the Pt use WC or Scooter?: No Wheel 50 feet with 2 turns (QC: 9 1 Step (curb) (QC): 4 4 Steps (QC): 4 12 Steps (QC): 88 Picking up an Object (QC): 4 OT Fpc Goals Airway Controller Goals Time Frame: Oct 25, 2019 Eating (QC): 6 (met) Oral Hygiene (QC): 6 (met) Shower/Bathe Self (QC): 5 (met) Upper Body Dressing (QC): 6 (met) Lower Body Dressing (QC): 6 (met) On/Off Footwear (QC): 5 (met) Toileting Hygiene (QC): 6 (met) Toilet/Commode Transfer (QC): 6 Additional Goals: 1-Demonstrate ADL Tasks, 2-Verbalize Understanding, 3- ImproveStrength/Jasper 1=Demonstrate adherence to instructed precautions during ADL tasks. 2=Patient will verbalize/demonstrate understanding of assistive devices/modifications for ADL. 3=Patient will improve strength/tolerance for activity to enable patient to perform ADL's. JUVENCIO HAHN PT Oct 17, 2019 14:09
[2019-10-27] MEDS ORDERED: CYANOCOBALAMIN INJ 1000 MCG/ML IM SCH (09:00)
== END 2019-10-17 15:10 | disposition home health service (06) | DRG 948 ==
PROVIDERS: ADMIT Internal Medicine; ATTEND Internal Medicine
DX: R53.1 Weakness (principal); I50.32 Chronic diastolic (congestive) heart failure; R42 Dizziness and giddiness; I11.0 Hypertensive heart disease with heart failure; K57.90 Diverticulosis of intestine, part unspecified, without perforation or abscess without bleeding; I07.1 Rheumatic tricuspid insufficiency; R32 Unspecified urinary incontinence; K31.84 Gastroparesis; E78.00 Pure hypercholesterolemia, unspecified; K21.9 Gastro-esophageal reflux disease without esophagitis; K59.09 Other constipation; K44.9 Diaphragmatic hernia without obstruction or gangrene; M19.91 Primary osteoarthritis, unspecified site; F41.9 Anxiety disorder, unspecified; E89.2 Postprocedural hypoparathyroidism; B35.1 Tinea unguium; G62.9 Polyneuropathy, unspecified; I87.2 Venous insufficiency (chronic) (peripheral); R60.0 Localized edema; T46.1X5A Adverse effect of calcium-channel blockers, initial encounter; M20.42 Other hammer toe(s) (acquired), left foot; M20.41 Other hammer toe(s) (acquired), right foot; R10.11 Right upper quadrant pain; R35.1 Nocturia; R40.0 Somnolence; Z90.49 Acquired absence of other specified parts of digestive tract; Z90.710 Acquired absence of both cervix and uterus; Z90.89 Acquired absence of other organs
CPT/HCPCS: 36415; 80048; 80053; 81000; 83735; 85025

== ENCOUNTER 2020-06-09 09:53 | Observation (INO) | payer MEDICARE ==
[~2020-06-09] VITALS: Ht 157.4 cm; Wt 88.7 kg
[~2020-06-09 09:53] MED LIST changes: +ALPR.25T PO; +AMLO-250 PO; -AMLO5TAB9 PO; +ASCO100024 PO; -ASCO10006 PO; +ASPI-1238 PO; -ASPI-983 PO; +CARV12.53 PO; +CLN.1T PO; -CLON0.1T PO; +LISI40TA9 PO; +MIRT-47 PO; +NITR0.4T39 SL; -PANT40TA3 PO; +PANT40TA52 PO; +PRED5DRO; +TRIA1TAB5 PO
[2020-06-09 10:56] LABS: BASOPHILS # (AUTO) 0.1 10^3/uL (0.0-0.1); BASOPHILS % (AUTO) 1 % (0-10); EOSINOPHILS # (AUTO) 0.4 10^3/uL (0.0-0.3); EOSINOPHILS % (AUTO) 6 % (0-10); HEMATOCRIT 36 % (35-52); HEMOGLOBIN 12.7 g/dL (11.5-16.0); LYMPHOCYTES # (AUTO) 1.7 10^3/uL (1.0-4.0); LYMPHOCYTES % (AUTO) 26 % (12-44); MEAN CORPUSCULAR HEMOGLOBIN 31 pg (25-34); MEAN CORPUSCULAR HGB CONC 35 g/dL (32-36); MEAN CORPUSCULAR VOLUME 87 fL (80-99); MEAN PLATELET VOLUME 10.1 fL (9.0-12.2); MONOCYTES # (AUTO) 0.6 10^3/uL (0.0-1.0); MONOCYTES % (AUTO) 9 % (0-12); NEUTROPHILS # (AUTO) 3.8 10^3/uL (1.8-7.8); NEUTROPHILS % (AUTO) 58 % (42-75); PLATELET COUNT 228 10^3/uL (130-400); WHITE BLOOD COUNT 6.4 10^3/uL (4.3-11.0)
[2020-06-09 11:00] LABS: ALBUMIN 3.7 GM/DL (3.2-4.5)
[2020-06-09 11:01] LABS: POTASSIUM 4.8 MMOL/L (3.6-5.0)
[2020-06-09 11:02] LABS: CALCIUM 8.9 MG/DL (8.5-10.1)
[2020-06-09 11:03] LABS: TOTAL PROTEIN 7.1 GM/DL (6.4-8.2)
[2020-06-09 11:07] LABS: CREATININE SERUM 1.08 MG/DL (0.60-1.30)
--- NOTE | 2020-06-09 11:27 | ED General ---
General Chief Complaint: Abdominal/GI Problems Stated Complaint: NAUSEA,LIGHTHEADED Nursing Triage Note: pt presents to ed with complaints of nausea and weakness x 2 days. pt also reports increased leg swelling and soa with exertion. Nursing Sepsis Screen: No Definite Risk Source of Information: Patient Exam Limitations: No Limitations History of Present Illness Date Seen by Provider: Jun 09, 2020 Time Seen by Provider: 10:40 Initial Comments Patient is an 84-year-old female who presents to the emergency room with a chief complaint of significant nausea and generalized weakness. Patient states that her symptoms have been ongoing for about a week but worse in the last 24 hours with dry heaves. Patient states that she saw her primary care physician about a week ago he called her last Wednesday and told her that her sodium was low and to increase the salt in her diet. Patient states that she has not been able to eat today secondary to her nausea. She is very weak at home. She complains of significant swelling in her bilateral lower extremities. She denies any fevers, chills, productive cough. No chest pain or abdominal pain. She does have a very large ventral hernia that she states is nontender. Patient tells me that she got her Covid vaccination, Moderna, second one on May 11. She states she is just not really felt all that well since that time. She denies any urinary complaints or diarrhea. All other review of systems reviewed and negative except as stated. Timing/Duration: 1 Week Severity: Moderate Associated Systoms: Nausea/Vomiting Allergies and Home Medications Allergies Coded Allergies: Penicillins (Verified Allergy, Unknown, 10/01/19) Home Medications ALPRAZolam 0.25 Mg Tablet, 0.25 MG PO Q8H PRN for ANXIETY Prescribed by: MARKO ANDERS on 10/17/19 0646 Amlodipine Besylate 5 Mg Tablet, 10 MG PO DAILY, (Reported) TAKES 2 (5MG) TABS Aspirin 81 Mg Tablet.dr, 81 MG PO DAILY, (Reported) Benazepril HCl 40 Mg Tab, 40 MG PO DAILY, (Reported) Brimonidine Tartrate/Timolol 5 Ml Drops, 1 DROP OS BID, (Reported) Carvedilol 12.5 Mg Tablet, 12.5 MG PO BID Prescribed by: MARKO ANDERS on 10/17/19 0645 Clonidine HCl 0.1 Mg Tablet, 0.1 MG PO DAILY PRN for DBP OVER 160, (Reported) Clotrimazole 15 Gm Cream..g., 1 APPLIC TOP DAILY PRN for RASH, (Reported) Cyanocobalamin 1,000 Mcg/Ml Inj, 1,000 MCG INJ MONTHLY, (Reported) Docusate Sodium 100 Mg Capsule, 100 MG PO DAILY PRN for CONSTIPATION-1ST LINE, (Reported) Lactulose 10 Gm/15 Ml Solution, 15 ML PO DAILY PRN for CONSTIPATION-3RD LINE, (Reported) Metoclopramide HCl 5 Mg Tablet, 5 MG PO BID Prescribed by: MARKO ANDERS on 10/17/19 0645 Mirtazapine 15 Mg Tab.rapdis, 7.5 MG PO HS Prescribed by: MARKO ANDERS on 10/17/19 0645 Ondansetron HCl 4 Mg Tablet, 0.4 MG PO TID PRN for NAUSEA/VOMITING-1ST LINE, (Reported) Pantoprazole Sodium 40 Mg Tablet.dr, 40 MG PO 1900, (Reported) Triamterene/Hydrochlorothiazid 1 Each Tablet, 1 EA PO DAILY Prescribed by: MARKO ANDERS on 10/17/19 1118 Patient Home Medication List Home Medication List Reviewed: Yes Review of Systems Review of Systems Constitutional: see HPI EENTM: no symptoms reported Respiratory: no symptoms reported Cardiovascular: no symptoms reported Gastrointestinal: nausea, vomiting ("Dry heaves") Genitourinary: no symptoms reported Musculoskeletal: other (Leg swelling bilateral lower extremities) Skin: no symptoms reported Psychiatric/Neurological: No Symptoms Reported All Other Systems Reviewed Negative Unless Noted: Yes Past Nbhxqjy-Ruxbld-Ftpckp Hx Patient Social History Alcohol Use: Denies Use Smoking Status: Never a Smoker 2nd Hand Smoke Exposure: No Recent Infectious Disease Expo: No Recent Hopitalizations: No Immunizations Up To Date Tetanus Booster (TDap): More than 5yrs PED Vaccines UTD: Yes Date of Pneumonia Vaccine: Apr 30, 2018 Date of Influenza Vaccine: Dec 27, 2017 Seasonal Allergies Seasonal Allergies: No Past Medical History Surgeries: Yes (CATARACTS;EGD'S/COLONOSCOPIES; R WRIST FX/EXTERNAL FIXATOR;) Adenoidectomy, Appendectomy, Eye Surgery, Gallbladder, Hysterectomy, Orthopedic, Parathyroidectomy, Tonsillectomy Respiratory: No (pulmonary hypertension) Cardiac: Yes (IRREGULAR HEART BEAT- irregular ekg, carotid artery stenosis, aortic regurg) High Cholesterol, Hypertension, Irregular Heartbeat Neurological: No Reproductive Disorders: No RN CLINICAL History: Menopausal Sexually Transmitted Disease: No HIV/AIDS: No Genitourinary: No Gastrointestinal: Yes Gastroesophageal Reflux, Chronic Constipation, Diverticulosis, Hiatal Hernia, Ulcer Musculoskeletal: Yes (R WRIST FX/EXTERNAL FIXATOR 08/2016;R WRIST FX -NO SURGERY) Arthritis, Fractures Endocrine: Yes Parathyroid Disease HEENT: Yes Cataract, Glaucoma Loss of Vision: Denies Hearing Impairment: Denies Cancer: No Psychosocial: No Integumentary: No Blood Disorders: No Adverse Reaction/Blood Tranf: No Family Medical History Completed stroke Hypertension Myocardial infarction Heart Disease, Hypertension, Stroke PSH: -EGD'S--02/2018--ULCERS/GASTRIC EROSIONS; LAST ONE 04/2018--HEALED ULCERS -COLONOSCOPIES--LAST ONE 02/2018--DIVERTICULAR DISEASE Physical Exam Vital Signs Vital Signs - First Documented 06/09/20 10:05 Temp 36.4 Pulse 64 Resp 18 B/P (MAP) 17/81 (60) Pulse Ox 99 Capillary Refill : Less Than 3 Seconds Height, Weight, BMI Height: 5'2.00" Weight: 188lbs. 1.6oz. [id number]; 34.00 BMI Method:Stated General Appearance: No Apparent Distress, WD/WN Eyes: Bilateral Eye Normal Inspection, Bilateral Eye PERRL, Bilateral Eye EOMI HEENT: Other (Slightly dry oral mucosa) Neck: Normal Inspection Respiratory: Lungs Clear, Normal Breath Sounds, No Accessory Muscle Use, No Respiratory Distress, Other (Patient does demonstrate a little conversational dyspnea) Cardiovascular: Regular Rate, Rhythm, Other (Significant edema in the bilateral lower extremities, nonpitting) Gastrointestinal: Non Tender (Large soft ventral hernia noted on abdominal exam), Soft Extremity: Non Tender, No Calf Tenderness Neurologic/Psychiatric: Alert, Oriented x3, No Motor/Sensory Deficits Skin: Normal Color, Warm/Dry Progress/Results/Core Measures Suspected Sepsis Recent Fever Within 48 Hours: No Infection Criteria Present: None New/Unexplained Altered Menta: No Sepsis Screen: No Definite Risk SIRS Temperature: Pulse: 64 Respiratory Rate: 18 Laboratory Tests 06/09/20 10:08: White Blood Count 6.4 Blood Pressure 17 /81 Mean: 60 Laboratory Tests 06/09/20 10:08: Creatinine 1.08, Platelet Count 228, Total Bilirubin 1.0 Results/Orders Lab Results Laboratory Tests Test 06/09/20 10:08 Range/Units White Blood Count 6.4 4.3-11.0 10^3/uL Red Blood Count 4.14 3.80-5.11 10^6/uL Hemoglobin 12.7 11.5-16.0 g/dL Hematocrit 36 35-52 % Mean Corpuscular Volume 87 80-99 fL Mean Corpuscular Hemoglobin 31 25-34 pg Mean Corpuscular Hemoglobin Concent 35 32-36 g/dL Red Cell Distribution Width 13.0 10.0-14.5 % Platelet Count 228 130-400 10^3/uL Mean Platelet Volume 10.1 9.0-12.2 fL Immature Granulocyte % (Auto) 0 % Neutrophils (%) (Auto) 58 42-75 % Lymphocytes (%) (Auto) 26 12-44 % Monocytes (%) (Auto) 9 0-12 % Eosinophils (%) (Auto) 6 0-10 % Basophils (%) (Auto) 1 0-10 % Neutrophils # (Auto) 3.8 1.8-7.8 10^3/uL Lymphocytes # (Auto) 1.7 1.0-4.0 10^3/uL Monocytes # (Auto) 0.6 0.0-1.0 10^3/uL Eosinophils # (Auto) 0.4 H 0.0-0.3 10^3/uL Basophils # (Auto) 0.1 0.0-0.1 10^3/uL Immature Granulocyte # (Auto) 0.0 0.0-0.1 10^3/uL Sodium Level 124 *L 135-145 MMOL/L Potassium Level 4.8 3.6-5.0 MMOL/L Chloride Level 94 L 98-107 MMOL/L Carbon Dioxide Level 19 L 21-32 MMOL/L Anion Gap 11 5-14 MMOL/L Blood Urea Nitrogen 19 H 7-18 MG/DL Creatinine 1.08 0.60-1.30 MG/DL Estimat Glomerular Filtration Rate 48 BUN/Creatinine Ratio 18 Glucose Level 109 H 70-105 MG/DL Calcium Level 8.9 8.5-10.1 MG/DL Corrected Calcium 9.1 8.5-10.1 MG/DL Total Bilirubin 1.0 0.1-1.0 MG/DL Aspartate Amino Transf (AST/SGOT) 18 5-34 U/L Alanine Aminotransferase (ALT/SGPT) 8 0-55 U/L Alkaline Phosphatase 85 40-136 U/L Total Protein 7.1 6.4-8.2 GM/DL Albumin 3.7 3.2-4.5 GM/DL My Orders Orders - CORNELIA ESQUIVEL MD Cbc With Automated Diff (06/09/20 10:49) Comprehensive Metabolic Panel (06/09/20 10:49) Ed Iv/Invasive Line Start (06/09/20 10:49) Ondansetron Injection (Zofran Injectio (06/09/20 11:30) Vital Signs/I&O 06/09/20 10:05 Temp 36.4 Pulse 64 Resp 18 B/P (MAP) 17/81 (60) Pulse Ox 99 Capillary Refill : Less Than 3 Seconds Blood Pressure Mean: 60 Departure Communication (Admissions) Time/Spoke to Admitting Phy: 11:[address] Pollard, would like normal saline at 100 an hour and recheck her Basic metabolic panel at 6 PM this evening. Impression Primary Impression: Hyponatremia Additional Impression: Generalized weakness Disposition: ADMITTED INPATIENT Condition: Stable Admissions Decision to Admit Reason: Admit from ER (General) Decision to Admit/Date: Jun 09, 2020 Time/Decision to Admit Time: 11:51 Departure-Patient Inst. Referrals: JENAE RAMESH DO (PCP/Family) Primary Care Physician CORNELIA EQSUIVEL MD Jun 09, 2020 11:27
[2020-06-09] MEDS ORDERED: ONDANSETRON 4 MG/2 ML (SDV) Z0FRAN IVP ONE (11:30)
[2020-06-09 12:35] VITALS: BP 179/81
[2020-06-09] MEDS ORDERED: ONDANSETRON 4 MG/2 ML (SDV) Z0FRAN IV PRN (13:00)
[2020-06-09 13:19] VITALS: BP 179/81
[2020-06-09] MEDS: NS IV 1000 ML 1,000 ML IV SCH (13:20)
[2020-06-09] MEDS ORDERED: RT-ALBUTEROL SULF 2.5 MG/3 ML PRE-MIX VIAL INH PRN (13:30)
[2020-06-09] MEDS ORDERED: ANTACID SUSP 30 ML UDC (MYLANTA) PO PRN (15:00)
[2020-06-09] MEDS ORDERED: polyethylene glycoL POWDER 17 GM (MIRALAX) PACK PO PRN (15:00)
[2020-06-09] MEDS ORDERED: ENOXAPARIN 40 MG/0.4 ML (LOVENOX) SYR SC SCH ×2 (15:00→21:00)
[2020-06-09] MEDS ORDERED: ONDANSETRON 4 MG (ZOFRAN) ORAL DISSOLVE TAB PO PRN (15:00)
[2020-06-09] MEDS ORDERED: ACETAMINOPHEN 325 MG TABLET PO PRN (15:00)
[2020-06-09] MEDS ORDERED: hydrALAZINE (APESOLINE) 20 MG/ML VIAL IV PRN (15:15)
[2020-06-09] MEDS ORDERED: PATIENT MAY USE OWN MEDS, ALL MC SCH (15:15)
[2020-06-09 15:49] VITALS: BP 112/53
[2020-06-09 18:11] LABS: POTASSIUM 4.1 MMOL/L (3.6-5.0)
[2020-06-09 18:12] LABS: CALCIUM 8.4 MG/DL (8.5-10.1)
[2020-06-09 18:16] LABS: CREATININE SERUM 1.25 MG/DL (0.60-1.30)
[2020-06-09 20:30] VITALS: BP 113/55
[2020-06-09] MEDS: PANTOPRAZOLE 40 MG (PROTONIX) TAB PO SCH (20:42)
[2020-06-09] MEDS: MIRTAZAPINE 15 MG (REMERON) TAB PO SCH (20:42)
[2020-06-09] MEDS ORDERED: CARVEDILOL 12.5 MG (COREG) TABLET PO SCH (21:00)
[2020-06-09 21:27] VITALS: BP 113/55
[2020-06-09] MEDS: MELATONIN 3 MG TABLET PO PRN (21:59)
[2020-06-09 23:51] VITALS: BP 99/58
[2020-06-10] MEDS: NS IV 1000 ML 1,000 ML IV SCH ×3 (00:29→20:46)
[2020-06-10 04:18] VITALS: BP 127/56
[2020-06-10 06:32] LABS: CREATININE SERUM 1.01 MG/DL (0.60-1.30)
[2020-06-10] MEDS: ONDANSETRON 4 MG/2 ML (SDV) Z0FRAN IV PRN ×2 (07:22→18:37)
[2020-06-10 08:00] VITALS: BP 135/70
[2020-06-10] MEDS ORDERED: lisINopril 40 MG (PRINIVIL) TABLET PO SCH (09:00)
[2020-06-10] MEDS: ASPIRIN E.C. 81 MG (ECOTRIN) TAB PO SCH (10:16)
[2020-06-10] MEDS: CARVEDILOL 6.25 MG (COREG) TAB PO SCH ×2 (10:17→20:46)
[2020-06-10] MEDS ORDERED: TRIA1TAB5 PO (11:02)
[2020-06-10] MEDS ORDERED: METO5TAB2 PO (11:02)
[2020-06-10] MEDS ORDERED: CARV12.53 PO (11:02)
[2020-06-10] MEDS ORDERED: MIRT15TA6 PO (11:02)
[2020-06-10] MEDS ORDERED: TIMO5DRO5 OS (11:02)
[2020-06-10] MEDS ORDERED: CLOT10PO TOP (11:02)
[2020-06-10] MEDS ORDERED: CLOT15CR28 TP (11:02)
[2020-06-10] MEDS ORDERED: ACET325T38 PO (11:04)
[2020-06-10 12:00] VITALS: BP 105/64
--- NOTE | 2020-06-10 12:04 | Physical Therapy Evaluation ---
PT Evaluation-General Medical Diagnosis Admission Date Jun 09, 2020 at 11:57 Medical Diagnosis: Hyponatremia, Generalized Weakness Onset Date: Jun 09, 2020 Therapy Diagnosis Therapy Diagnosis: Impaired mobility and endurance Height/Weight Height (Feet): 5 Height (Inches): 2.00 Weight (Pounds): 188 Weight (Ounces): 1.6 Precautions Precautions/Isolations: Fall Prevention, Standard Precautions Weight Bear Status Right Lower Extremity: Right Full Weight Bearing Left Lower Extremity: Left Full Weight Bearing Referral Physician: Mabel Reason for Referral: Evaluation/Treatment Medical History Pertinent Medical History: Arthritis, CAD, HTN Additional Medical History Obesity Current History ER secondary to nausea, weakness and bilateral LE edema Reviewed History: Yes Social History Home: Single Level Current Living Status: Alone Entry Into Home: Ramp Prior Prior Level of Function SCALE: Activities may be completed with or without assistive devices. 2-Qojhinxsjs-lemcnjo completes the activity by him/herself with no assistance from a helper. 5-Set-up or Clean-up Assistance-helper sets up or cleans up; patient completes activity. [place] assists only prior to or following the activity. 4-Supervision or Touching Assistance-helper provides verbal cues and/or touching/steadying and/or contact guard assistance as patient completes activity. Assistance may be provided throughout the activity or intermittently. 3-Partial/Moderate Assistance-helper does LESS THAN HALF the effort. [place] lifts, holds or supports trunk or limbs, but provides less than half the effort. 2-Substantial/Maximal Assistance-helper does MORE THAN HALF the effort. [place] lifts or holds trunk or limbs and provides more than half the effort. 3-Auurtpcpo-zcscts does ALL the effort. Patient does none of the effort to complete the activity. Or, the assistance of 2 or more helpers is required for the patient to complete the activity. If activity was not attempted, code reason: 7-Patient Refused. 9-Not Applicable-not attempted and the patient did not perform the activity before the current illness, exacerbation or injury. 10-Not Attempted due to Environmental Limitations-(lack of equipment, weather restraints, etc.). 88-Not Attempted due to Medical Conditions or Safety Concerns. Bed Mobility: 6 Transfers (B,C,W/C): 6 Gait: 6 Stairs: 6 Indoor Mobility (Ambulation): Independent Stairs: Independent Prior Devices Use: Walker Uses walker at home. PT Evaluation-Current Subjective Patient agreed to participate in PT. Patient reports no pain but notes mild fatigue. Pt/Family Goals Independent with functional mobility at home Objective Patient Orientation: Person, Place, Time Attachments: IV ROM/Strength ROM Upper Extremities WNL globally ROM Lower Extremities WNL globally Strength Upper Extremities WNL globally Strength Lower Extremities 3+/5 globally Integumentary/Posture Integumentary see nursing report Bowel Incontinence: No Bladder Incontinence: No Posture kyphotic Neuromuscular (Tone, Coordination, Reflexes) WNL Sensory Vision: Functional Hearing: Functional Sensation Right Upper Extremit: Intact Sensation Left Upper Extremity: Intact Sensation Right Lower Extremit: Intact Sensation Left Lower Extremity: Intact Transfers Sit to Stand (QC): 4 Toilet Transfer (QC): 5 SBA; pt was able to slowly complete sit <> stand transfer Gait Does the Patient Walk?: Yes Mode of Locomotion: Walk Anticipated Mode of Locomotion: Walk Walk 10 feet (QC): 4 Walk 50 ft with 2 Turns(QC): 4 Distance: 120' Gait Assistive Device: FWW Comments/Gait Description Patient was able to maintain steady gait with ambulation with no LOB. Wheelchair Training Does the Pt Use a Wheelchair?: No Balance Sitting Static: Fair Sitting Dynamic: Fair Standing Static: Fair Standing Dynamic: Fair Picking up an Object (QC): 88 Assessment/Needs Patient to receive PT for decreased endurance and functional mobility. Rehab Potential: Fair PT [facility] Goals Filler Shaker Goals PT Filler Shaker Goals Time Frame: Jun 21, 2020 Roll Left & Right (QC): 6 Sit to Lying (QC): 6 Lying-Sitting on Side/Bed(QC): 6 Sit to Stand (QC): 6 Chair/Djg-ez-Oixni Xfer(QC): 6 Toilet Transfer (QC): 6 Car Transfer (QC): 6 Does the Patient Walk: Yes Walk 10 feet (QC): 6 Walk 50ft with 2 Turns (QC): 6 Walk 150 ft (QC): 6 PT Plan Problem List Problem List: Activity Tolerance, Functional Strength, Safety, Balance, Gait, Transfer, Bed Mobility, ROM Treatment/Plan Treatment Plan: Continue Plan of Care Treatment Plan: Bed Mobility, Education, Functional Activity [place], Functional Strength, Gait, Safety, Therapeutic Exercise, Transfers Treatment Duration: Jun 21, 2020 Frequency: 6 times per week Estimated Hrs Per Day: .5 hour per day Patient and/or Family Agrees t: Yes Discharge Recommendations Therapy Discharge Recommendati: Home & Family Time/GCodes Time In: 1134 Time Out: 1146 Total Billed Treatment Time: 12 Total Billed Treatment 1 visit: EVM: 12' NIKHIL TORRES PT Jun 10, 2020 12:04
--- NOTE | 2020-06-10 12:54 | History & Physical-Hospitalist ---
History of Present Illness HPI/Chief Complaint Pt is 84yoCF known to me from previous admissions who presented to the ER due to nausea and weakness. She reports that it's been going on for about a week or so. She was seen by her primary care doctor and had blood work done. She was told then that she was hyponatremia and advised to take salt tabs. She also had a uri ne study done but is unsure of the results. She states she feels shakey and weak still but better than she did yesterday. She had some nausea again this morning but it resolved with Zofran. Source: patient Date Seen 06/10/20 Time Seen by a Provider: 12:28 Attending Physician Caroline Monroe MD PCP Tera Alicea DO Referring Physician Date of Admission Jun 09, 2020 at 11:57 Home Medications & Allergies Home Medications Reviewed patient Home Medication Reconciliation performed by pharmacy medication reconciliations cnc service technician and/or nursing. Patients Allergies have been reviewed. Allergies Allergies Coded Allergies Penicillins (Verified Allergy, Unknown, 10/01/19) Past Pgncydh-Ylzjoq-Bojdwa Hx Past Med/Social Hx: Reviewed Nursing Past Med/Soc Hx Patient Social History Employed/Student: retired Alcohol Use: Denies Use Recreational Drug Use: No Smoking Status: Never a Smoker 2nd Hand Smoke Exposure: No Recent Foreign Travel: No Contact w/other who traveled: No Recent Hopitalizations: No Recent Infectious Disease Expo: No Immunizations Up To Date Tetanus Booster (TDap): More than 5yrs Pediatric: Yes Date of Pneumonia Vaccine: Apr 30, 2018 Date of Influenza Vaccine: Dec 27, 2017 Seasonal Allergies Seasonal Allergies: No Past Medical History Surgeries: Adenoidectomy, Appendectomy, Eye Surgery, Gallbladder, Hysterectomy, Orthopedic, Parathyroidectomy, Tonsillectomy Cardiac: High Cholesterol, Hypertension, Irregular Heartbeat Reproductive: No Sexually Transmitted Disease: No HIV/AIDS: No Menopausal Gastrointestinal: Gastroesophageal Reflux, Chronic Constipation, Diverticulosis, Hiatal Hernia, Ulcer Musculoskeletal: Arthritis, Fractures Endocrine: Parathyroid Disease HEENT: Cataract, Glaucoma Loss of Vision: Denies Hearing Impairment: Denies History of Blood Disorders: No Adverse Reaction to Blood Tan: No Family History Reviewed Nursing Family Hx Completed stroke Hypertension Myocardial infarction Heart Disease, Hypertension, Stroke PSH: -EGD'S--02/2018--ULCERS/GASTRIC EROSIONS; LAST ONE 04/2018--HEALED ULCERS -COLONOSCOPIES--LAST ONE 02/2018--DIVERTICULAR DISEASE Review of Systems Constitutional: No chills, No fever; malaise EENTM: no symptoms reported Respiratory: No dyspnea on exertion, No short of breath Cardiovascular: No chest pain, No palpitations Gastrointestinal: No abdominal pain; nausea, vomiting Genitourinary: no symptoms reported Musculoskeletal: no symptoms reported Skin: no symptoms reported Psychiatric/Neurological: No Symptoms Reported Physical Exam Physical Exam Vital Signs Vital Signs - First Documented 06/09/20 06/09/20 06/09/20 10:05 12:35 13:19 Temp 36.4 Pulse 64 Resp 18 B/P (MAP) 17/81 (60) Pulse Ox 99 O2 Delivery Room Air FiO2 21 Capillary Refill : Less Than 3 Seconds Height, Weight, BMI Height: 5'2.00" Weight: 188lbs. 1.6oz. [id number]; 35.80 BMI Method:Stated General Appearance: No Apparent Distress, Chronically ill, Obese HEENT: PERRL/EOMI, Moist Mucous Membranes; No Scleral Icterus (L), No Scleral Icterus (R) Neck: Normal Inspection, Supple Respiratory: Lungs Clear, No Accessory Muscle Use, No Respiratory Distress Cardiovascular: Regular Rate, Rhythm, No Murmur Gastrointestinal: Normal Bowel Sounds, Non Tender, Soft Extremity: Non Tender, Swelling Neurologic/Psychiatric: Alert, Oriented x3, Normal Mood/Affect Skin: Normal Color, Warm/Dry Results Results/Procedures Labs Laboratory Tests 06/09/20 10:08 06/09/20 17:52 06/10/20 05:29 Patient resulted labs reviewed. 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
[2020-06-10 15:44] VITALS: BP 135/58
[2020-06-10] MEDS: PANTOPRAZOLE 40 MG (PROTONIX) TAB PO SCH (18:03)
[2020-06-10 19:49] VITALS: BP 116/56
[2020-06-10] MEDS: TIMOLOL MALEATE 0.5% 5 ML (TIMOPTIC) BTL OU SCH (20:46)
[2020-06-10] MEDS: MIRTAZAPINE 15 MG (REMERON) TAB PO SCH (20:47)
[2020-06-10] MEDS ORDERED: ENOXAPARIN 40 MG/0.4 ML (LOVENOX) SYR SC SCH (21:00)
[2020-06-10] MEDS: MELATONIN 3 MG TABLET PO PRN (22:00)
[2020-06-11] VITALS: BP 134/60
[2020-06-11] MEDS: ONDANSETRON 4 MG/2 ML (SDV) Z0FRAN IV PRN (02:54)
[2020-06-11 04:00] VITALS: BP 131/63
[2020-06-11] MEDS: NS IV 1000 ML 1,000 ML IV SCH ×2 (05:43→09:15)
[2020-06-11 05:47] LABS: HEMOGLOBIN 11.2 g/dL (11.5-16.0); MEAN PLATELET VOLUME 9.4 fL (9.0-12.2); WHITE BLOOD COUNT 7.2 10^3/uL (4.3-11.0)
[2020-06-11 05:57] LABS: POTASSIUM 4.3 MMOL/L (3.6-5.0)
[2020-06-11 05:59] LABS: CALCIUM 8.2 MG/DL (8.5-10.1)
[2020-06-11 06:03] LABS: CREATININE SERUM 0.98 MG/DL (0.60-1.30)
[2020-06-11 08:00] VITALS: BP 149/72
[2020-06-11] MEDS ORDERED: lisINopril 20 MG (PRINIVIL) TABLET PO SCH (09:00)
[2020-06-11] MEDS: ASPIRIN E.C. 81 MG (ECOTRIN) TAB PO SCH (09:17)
[2020-06-11] MEDS: CARVEDILOL 6.25 MG (COREG) TAB PO SCH (09:17)
[2020-06-11] MEDS: TIMOLOL MALEATE 0.5% 5 ML (TIMOPTIC) BTL OU SCH (09:18)
--- NOTE | 2020-06-11 11:06 | Discharge Summary ---
Diagnosis/Chief Complaint Date of Admission Jun 09, 2020 at 11:57 Date of Discharge Discharge Date: Jun 11, 2020 Admission Diagnosis Hyponatremia Primary Care Tera Alicea DO Discharge Summary Discharge Physical Exam Allergies: Coded Allergies: Penicillins (Verified Allergy, Unknown, 10/01/19) Vitals & I&Os Vital Signs Date Time Temp Pulse Resp B/P (MAP) Pulse Ox O2 Delivery O2 Flow Rate FiO2 06/11/20 11:30 06/11/20 08:53 94 Room Air 06/11/20 08:00 35.9 74 16 06/09/20 13:19 21 General Appearance: No Apparent Distress, WD/WN, Chronically ill Neurologic/Psychiatric: Alert, Oriented x3 Hospital Course Pt was admitted due to hyponatremia and weakness presumably from volume depletion from nausea and vomiting. She was fluid resusciatated and her labs improved. She felt better as well. She was transferred to IRU for continued strengthening. She did requested to see Dr Astorga for repeat EGD while she is there due to her nausea. Labs (last 24 hrs) Patient resulted labs reviewed. Pending Labs Discussion & Recommendations Discharge Planning: >30 minutes discharge planning Discharge Home Medications: Active Scripts Active Reported Tylenol (Acetaminophen) 325 Mg Tablet 650 Mg PO Q6H PRN TAKES 2 (325MG) TABLETS Clotrimazole 15 Gm Cream..g. 1 Applic TP DAILY PRN Clotrimazole 10 Gm Powder 1 Applic TOP DAILY PRN Triamterene-Hctz 75-50 mg Tab (Triamterene/Hydrochlorothiazid) 1 Each Tablet 1 Each PO DAILY Carvedilol 12.5 Mg Tablet 6.25 Mg PO BID TAKES OF A 12.5MG TABLET Mirtazapine 15 Mg Tablet 7.5 Mg PO HS TAKES OF A 15MG TABLET Timolol Maleate 0.5% (Timolol Maleate) 5 Ml Drops 1 Drop OS BID Benazepril HCl 40 Mg Tab 20 Mg PO DAILY TAKES OF A 40MG TABLET Aspirin EC (Aspirin) 81 Mg Tablet. 81 Mg PO DAILY Pantoprazole Sodium 40 Mg Tablet. 40 Mg PO 1900 Instructions to patient/family Please see electronic discharge instructions given to patient. CAROLINE BELLO MD Jun 11, 2020 11:06
== END 2020-06-11 11:30 ==
LOC: EDUNIT# 09:53 → ER 09:55 → 4TH 11:57 → UNDOADMOB 11:57 → 4TH 12:35 → UNDODISOB 06-11 11:30
PROVIDERS: ADMIT Internal Medicine; ATTEND Family Medicine
DX: E87.1 Hypo-osmolality and hyponatremia (principal); I27.20 Pulmonary hypertension, unspecified; I10 Essential (primary) hypertension; K21.9 Gastro-esophageal reflux disease without esophagitis; K43.9 Ventral hernia without obstruction or gangrene; K59.09 Other constipation; M19.90 Unspecified osteoarthritis, unspecified site; E78.00 Pure hypercholesterolemia, unspecified; Z88.0 Allergy status to penicillin; Z79.899 Other long term (current) drug therapy; Z79.82 Long term (current) use of aspirin; Z90.89 Acquired absence of other organs; Z90.710 Acquired absence of both cervix and uterus; Z82.3 Family history of stroke
CPT/HCPCS: 36415; 80048; 80053; 85025; 85027; 93005; G0378

== ENCOUNTER 2020-06-11 11:34 | Inpatient (IN) | payer MEDICARE ==
[~2020-06-11] VITALS: Ht 157.5 cm; Wt 92.4 kg
[~2020-06-11 11:34] MED LIST changes: +ACET325T38 PO; +ACETAMINOPHEN 500 MG TAB (TYLENOL) PO PRN; +BISACODYL 10 MG SUPP (DULCOLAX) PR PRN; +CALCIUM CARBONATE 500 MG (TUMS) TAB.CHEW PO PRN; +CLOT10PO TOP; +CLOT15CR28 TP; +DOCUSATE SODIUM 100 MG (COLACE) CAP PO PRN; +FLEET ENEMA ADULT 1 EA BTL PR PRN; +LACTULOSE SYRUP 10GM/15ML (ENULOSE) 30ML UDC PO PRN; +LOPERAMIDE 2 MG (IMODIUM) TABLET PO PRN; +MIRT15TA6 PO; +ONDANSETRON 4 MG (ZOFRAN) ORAL DISSOLVE TAB PO PRN; +TIMO5DRO5 OS; +diphenhydrAMINE 25 MG TAB (BENADRYL) PO PRN; +guaiFENesin/CODEINE (ROBITUSSIN AC) 10ML UDC PO PRN
[2020-06-11] MEDS ORDERED: ACETAMINOPHEN 325 MG TABLET PO PRN (12:00)
--- NOTE | 2020-06-11 14:24 | Occupational Therapy Eval ---
OT Evaluation-General/PLF Medical Diagnosis Admission Date Jun 11, 2020 at 11:34 Medical Diagnosis: Hyponatremia, nausea Onset Date: Jun 09, 2020 Therapy Diagnosis Therapy Diagnosis: Weakness, Decreased ADL skills Height/Weight Height (Feet): 5 Height (Inches): 2.00 Weight (Pounds): 188 Weight (Ounces): 1.6 Precautions Precautions/Isolations: Fall Prevention, Standard Precautions Weight Bear Status Weight Bearing Restriction: Weight Bearing/Tolerated Referral Physician: Dr. Corona Referral Reason: Activity Tolerance, Self Care, Evaluation/Treatment, Strengthening/ROM Medical History Pertinent Medical History: Arthritis, CAD, HTN Additional Medical History Eye surgery, glaucoma, hysterectomy, orthopedic, ulcers, gastric erosion Current History Pt. came to ER with nausea. Pt. low on sodium. Reports significant weakness. Reviewed History: Yes Social History Home: Single Level Current Living Status: Alone Entry Into Home: Level Entry House was modified when her spouse was sick. He is passed now. ADL-Prior Level of Function SCALE: Activities may be completed with or without assistive devices. 1-Ekqjroednn-bchpkrq completes the activity by him/herself with no assistance from a helper. 5-Set-up or Clean-up Assistance-helper sets up or cleans up; patient completes activity. [place] assists only prior to or following the activity. 4-Supervision or Touching Assistance-helper provides verbal cues and/or touching/steadying and/or contact guard assistance as patient completes activity. Assistance may be provided throughout the activity or intermittently. 3-Partial/Moderate Assistance-helper does LESS THAN HALF the effort. Central lifts, holds or supports trunk or limbs, but provides less than half the effort. 2-Substantial/Maximal Assistance-helper does MORE THAN HALF the effort. Central lifts or holds trunk or limbs and provides more than half the effort. 9-Iypmkbvru-tmdunm does ALL the effort. Patient does none of the effort to complete the activity. Or, the assistance of 2 or more helpers is required for the patient to complete the activity. If activity was not attempted, code reason: 7-Patient Refused. 9-Not Applicable-not attempted and the patient did not perform the activity before the current illness, exacerbation or injury. 10-Not Attempted due to Environmental Limitations-(lack of equipment, weather restraints, etc.). 88-Not Attempted due to Medical Conditions or Safety Concerns. ADL PLOF Comments Pt. verbalizes that she is independent in home setting. She uses a walker, and is able to bathe/dress self. She only bathes when a family member is there, and she has a tub/transfer bench with a tub/shower combo. She typically wears slip on shoes, but if she has to don socks she has her kids assist. Her kids live nearby and are very supportive. She states that her daughter and daughter in law bring dinner for her each night. Self Care: Needed Some Help Functional Cognition: Independent DME/Equipment: Tub/Shower DME/Equipment Comments Pt. has walker. 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 does not report pain but does report nausea throughout. Pt. has already had nausea medication. Appearance Pt. alert and oriented. Agrees to work with therapy. Mental Status/Objective Patient Orientation: Person, Place, Time, Situation Attachments: IV Current Hand Dominance: Left Upper Extremity ROM Pt. is able to flex bilateral shoulders to approximately 90 degrees. She has difficulty reaching back of head to comb it, but is able to comb sides, feed, self, etc. ADL-Treatment Eating (QC): 5 Oral Hygiene (QC): 4 Shower/Bathe Self (QC): 3 (Mod assist to wash rear phoebe area and bilateral feet in shower.) Upper Body Dressing (QC): 4 Lower Body Dressing (QC): 2 On/Off Footwear (QC): 2 Toileting Hygiene (QC): 3 (Min assist to pull brief over hips.) Other Treatments Pt. seen twice this date. First in a.m. and then in p.m. Co-treatment with PT took place each time due to pt's fatigue, low endurance, and nausea. PT focused on ambulation, transfers, mobility, and LE assessement while OT focused on ADL skills, energy conservation, UE assessement, and overall endurance. Pt. ambulated total of 150 feet, 100 feet in a.m. with walker and CGA, and then another 200 feet in p.m. with walker and CGA. Pt. agreed to shower. Daughter present and brought fresh clothing. OT requested for podiatry consult due to toenails needing attended. Pt. requires multiple rest breaks, but is able to recover and continue with tasks. Pt. states that she is very tired at end of treatment, and has had nausea waves during shower that required rest breaks. Pt. unable to reach her feet, or rear phoebe area. At end of first session, pt. up in chair with all needs met waiting on lunch tray. At end of second session, pt up in chair with all needs met, and resting with family present. Overall, pt. tolerated treatment well and will benefit from skilled therapy to increase strength and independence for functional return home. Education OT Patient Education: Correct positioning, Modified ADL techniques, Progress toward Goal/Update tx plan, Purpose of tx/functional activities, Reviewed p recautions, Rehab process, Transfer techniques Teaching Recipient: Patient Teaching Methods: Demonstration, Discussion Response to Teaching: Verbalize Understanding, Return Demonstration OT Short Term Goals Short Term Goals Time Frame: Jun 18, 2020 Eatin Oral hygiene: 5 Toileting hygiene: 4 Shower/bathe self: 4 Upper body dressin Lower body dressin (With AE) Putting on/taking off footwear: 4 (With AE) OT Filling Hauler Weaving Goals Long-Term Goals Time Frame: Jul 02, 2020 Eating (QC): 6 Oral Hygiene (QC): 6 Toileting Hygiene (QC): 6 Shower/Bathe Self (QC): 5 Upper Body Dressing (QC): 6 Lower Body Dressing (QC): 5 On/Off Footwear (QC): 5 (With AE) Additional Goals: 1-Demonstrate ADL Tasks, 2-Verbalize Understanding, 3- ImproveStrength/Jasper 1=Demonstrate adherence to instructed precautions during ADL tasks. 2=Patient will verbalize/demonstrate understanding of assistive devices/modifications for ADL. 3=Patient will improve strength/tolerance for activity to enable patient to perform ADL's. OT Education/Plan Problem List/Assessment Assessment: Decreased Activ Tolerance, Decreased UE Strength, Impaired I ADL's, Impaired Self-Care Skills, Restricted Funct UE ROM Discharge Recommendations Plan/Recommendations: Continue POC Therapy Discharge Recommendati: Home & Family, Post Acute OT Equpiment Recommendations-D/C: Hip Kit Comment Other equipment recommendations to be determined. Target Placement Home with family support. Treatment Plan/Plan of Care Treatment,Training & Education: Yes Patient would benefit from OT for education, treatment and training to promote independence in ADL's, mobility, safety and/or upper extremity function for ADL's. Plan of Care: ADL Retraining, Functional Mobility, UE Funct Exercise/Act Treatment Duration: Jul 02, 2020 Frequency: At least 5 of 7 days/Wk (IRF) Estimated Hrs Per Day: 1.5 hours per day Agreement: Yes Rehab Potential: Good Time/GCodes Start Time: 11:20 Stop Time: 13:50 Total Time Billed (hr/min): 90 Billed Treatment Time 1921-4229 1, EVM x 10minutes [id number] PT eval no charge [id number]- ADL x 20minutes, FA x 15minutes- Co treated with PT from [id number] [id number] 1, ADL x 50minutes- Co-treatment with PT. Please see above note for designated roles. GLENNA DE PAZ OT Jun 11, 2020 14:24
--- NOTE | 2020-06-11 14:26 | Physical Therapy Evaluation ---
PT Evaluation-General Medical Diagnosis Admission Date Jun 11, 2020 at 11:34 Medical Diagnosis: Hyponatremia/Nausea Onset Date: Jun 09, 2020 Therapy Diagnosis Therapy Diagnosis: Generalized weakness Height/Weight Height (Feet): 5 Height (Inches): 2.00 Weight (Pounds): 188 Weight (Ounces): 1.6 Precautions Precautions/Isolations: Fall Prevention, Standard Precautions Weight Bear Status Right Lower Extremity: Right Full Weight Bearing Left Lower Extremity: Left Full Weight Bearing Referral Physician: Cj Reason for Referral: Evaluation/Treatment Medical History Pertinent Medical History: Arthritis, CAD, HTN Additional Medical History Eye surgery, hysterectomy, gastric ulcer Current History transfer to ARU Reviewed History: Yes Social History Home: Single Level Current Living Status: Alone Entry Into Home: Ramp, Level Entry Prior Prior Level of Function SCALE: Activities may be completed with or without assistive devices. 7-Lkezfsnvkk-brmzopl completes the activity by him/herself with no assistance from a helper. 5-Set-up or Clean-up Assistance-helper sets up or cleans up; patient completes activity. [place] assists only prior to or following the activity. 4-Supervision or Touching Assistance-helper provides verbal cues and/or touching/steadying and/or contact guard assistance as patient completes activit y. Assistance may be provided throughout the activity or intermittently. 3-Partial/Moderate Assistance-helper does LESS THAN HALF the effort. [place] lifts, holds or supports trunk or limbs, but provides less than half the effort. 2-Substantial/Maximal Assistance-helper does MORE THAN HALF the effort. [place] lifts or holds trunk or limbs and provides more than half the effort. 2-Rgnvaodgy-umytxo does ALL the effort. Patient does none of the effort to complete the activity. Or, the assistance of 2 or more helpers is required for the patient to complete the activity. If activity was not attempted, code reason: 7-Patient Refused. 9-Not Applicable-not attempted and the patient did not perform the activity before the current illness, exacerbation or injury. 10-Not Attempted due to Environmental Limitations-(lack of equipment, weather restraints, etc.). 88-Not Attempted due to Medical Conditions or Safety Concerns. Bed Mobility: 6 Transfers (B,C,W/C): 6 Gait: 6 Indoor Mobility (Ambulation): Independent Stairs: Not Applicalbe Prior Devices Use: Walker PT Evaluation-Current Subjective Patient reports feeling nauseous pre-tx, and patient had already had nausea medication. Patient does not report any pain, and consented to begin PT. Pt/Family Goals [place] with mobility at home Objective Patient Orientation: Normal For Age Attachments: IV ROM/Strength ROM Upper Extremities WNL ROM Lower Extremities WNL grossly Strength Upper Extremities WNL Strength Lower Extremities 4-/5 grossly Integumentary/Posture Integumentary WNL Bowel Incontinence: No Bladder Incontinence: No Posture Mild kyphosis Neuromuscular (Tone, Coordination, Reflexes) WNL Sensory Vision: Functional Hearing: Impaired Hand Dominance: Left Sensation Right Upper Extremit: Intact Sensation Left Upper Extremity: Intact Sensation Right Lower Extremit: Intact Sensation Left Lower Extremity: Intact Transfers Roll Left & Right (QC): 6 Sit to Lying (QC): 4 Lying to Sitting/Side of Bed(Q: 4 Sit to Stand (QC): 4 Chair/Rjq-xl-Imroc Xfer(QC): 4 Toilet Transfer (QC): 4 Car Transfer (QC): 4 CGA x1 utilized. Gait Does the Patient Walk?: Yes Mode of Locomotion: Walk Anticipated Mode of Locomotion: Walk Walk 10 feet (QC): 4 Walk 50 ft with 2 Turns(QC): 4 Walk 150 ft (QC): 4 Walking 10ft/uneven surface-QC: 4 Distance: 150', 100', 200' Gait Assistive Device: FWW Comments/Gait Description Patient ambulate 150' to elevators with need for rest break. Able to ambulate 100' during LE assessment in which she required another rest break. Patient was able to ambulate 100' x2 in afternoon with one required rest break. Patient required the use of CGA x1. Wheelchair Training Wheel 50 ft with 2 turns (QC): 9 Wheel 150 ft (QC): 9 Stairs 1 Step (curb) (QC): 3 4 Steps (QC): 88 12 Steps (QC): 9 Patient required Min A x1 with stepping up on curb. Balance Sitting Static: Fair Sitting Dynamic: Fair Standing Static: Fair Standing Dynamic: Fair Picking up an Object (QC): 88 Treatment Patient was seen twice today, once in the a.m and p.m. Co-treated with OT secondary to patient fatigue, nausea, and mobility impairments. PT focused on transfers, functional mobility, endurance, and LE assessment. OT focused on ADL's, UE assessment, and energy conservation. Treatment consisted of ambulation (see above), and dynamic balance activities during OT ADL assessment. PT assisted patient with balance and transfers during shower while OT assisted with cleansing and dressing tasks. Patient required multiple rest breaks throughout session. Assessment/Needs Patient will benefit from interventions addressing impaired strength, mobility, and endurance to return to PLOF with independence at home. Rehab Potential: Fair PT Short Term Goals Short Term Goals Time Frame: Jun 18, 2020 Roll Left & Right: 6 Sit to lyin Lying to sitting on side of be: 5 Sit to stand: 5 Chair/euc-rc-lmgjv transfer: 5 Toilet transfer: 5 Car transfer: 5 Walk 10 feet: 5 Walk 50 feet with two turns: 5 Walk 150 feet: 5 Walking 10ft on uneven surface: 5 1 step (curb): 4 4 steps: 4 12 steps: 9 Picking up objects: 4 PT Small Engine Specialist Goals Small Engine Specialist Goals PT Small Engine Specialist Goals Time Frame: Jul 02, 2020 Roll Left & Right (QC): 6 Sit to Lying (QC): 6 Lying-Sitting on Side/Bed(QC): 6 Sit to Stand (QC): 6 Chair/Wbu-sn-Lsjyj Xfer(QC): 6 Toilet Transfer (QC): 6 Car Transfer (QC): 6 Does the Patient Walk: Yes Walk 10 feet (QC): 6 Walk 50ft with 2 Turns (QC): 6 Walk 150 ft (QC): 6 Walking 10ft on Uneven Surface: 6 1 Step (curb) (QC): 6 4 Steps (QC): 5 12 Steps (QC): 9 Picking up an Object (QC): 5 Does the Pt use WC or Scooter?: No Wheel 50 feet with 2 turns (QC: 9 Type: N/A Wheel 150 feet: 9 Type: N/A PT Plan Problem List Problem List: Activity Tolerance, Functional Strength, Safety, Balance, Gait, Transfer, ROM Treatment/Plan Treatment Plan: Continue Plan of Care Treatment Plan: Bed Mobility, Concurrent Therapy, Education, Functional Activity [place], Functional Strength, Group Therapy, Gait, Safety, Therapeutic Exercise, Transfers Treatment Duration: Jul 02, 2020 Frequency: At least 5 of 7 days/Wk (IRF) Estimated Hrs Per Day: 1.5 hours per day Patient and/or Family Agrees t: Yes Discharge Recommendations Therapy Discharge Recommendati: Home & Family, Post Acute PT Time/GCodes Time In: 1120 Time Out: 1350 Total Billed Treatment Time: 90 Total Billed Treatment 2 visits 1120 - 1130 OT Eval No Charge 1130 - 1140 EVM x10 min 1140 - 1205 FA x2 25 min - Co-treated with OT [id number] FA x3 50 min - Co-treated with OT. Please see above note for designated roles. NIKHIL TORRES PT Jun 11, 2020 14:26
[2020-06-11] MEDS: DOCUSATE SODIUM 100 MG (COLACE) CAP PO SCH ×3 (14:34→20:37)
[2020-06-11] MEDS: polyethylene glycoL POWDER 17 GM (MIRALAX) PACK PO SCH ×3 (14:34→22:15)
[2020-06-11] MEDS: SENNA W/DOCUSATE (SENOKOT S) TABLET PO SCH ×3 (14:34→22:16)
--- NOTE | 2020-06-11 18:11 | PM&R Post Admission Assessment ---
PM&R HP Date of Visit: Jun 11, 2020 Time of Visit: 12:00 History of Present Illness CC: Debility HPI: This is an 84yoWF clinic pt of Dr. Alicea who has been to inpatient rehab before who was admitted to observation for generalized weakness and hyponatremia. Pt feels like she has had a lot going on with her hiatal hernia, requested Dr. Astorga to see her for an EGD and I will do that tomorrow since he will be returning back to work tomorrow. Overall she is doing well and ready for rehab to regain function with the use of assistive devices to be able to return back to independent living. Past Bmmresj-Uaxasw-Crjati Hx Past Med/Social Hx: Reviewed Nursing Past Med/Soc Hx, Reviewed and Corrections made Patient Social History Marrital Status: single Employed/Student: retired Alcohol Use: Denies Use Smoking Status: Never a Smoker 2nd Hand Smoke Exposure: No Recent Hopitalizations: No Immunizations Up To Date Tetanus Booster (TDap): More than 5yrs Pediatric: Yes Date of Pneumonia Vaccine: Apr 30, 2018 Date of Influenza Vaccine: Nov 21, 2019 Seasonal Allergies Seasonal Allergies: No Past Medical History Surgeries: Adenoidectomy, Appendectomy, Eye Surgery, Gallbladder, Hysterectomy, Orthopedic, Parathyroidectomy, Tonsillectomy Cardiac: High Cholesterol, Hypertension, Irregular Heartbeat Reproductive: No Sexually Transmitted Disease: No HIV/AIDS: No Menopausal Gastrointestinal: Gastroesophageal Reflux, Chronic Constipation, Diverticulosis, Hiatal Hernia, Ulcer Musculoskeletal: Arthritis, Fractures Endocrine: Parathyroid Disease HEENT: Cataract, Glaucoma Loss of Vision: Denies Hearing Impairment: Denies History of Blood Disorders: No Adverse Reaction to Blood Tan: No Family History Completed stroke Hypertension Myocardial infarction Heart Disease, Hypertension, Stroke PSH: -EGD'S--02/2018--ULCERS/GASTRIC EROSIONS; LAST ONE 04/2018--HEALED ULCERS -COLONOSCOPIES--LAST ONE 02/2018--DIVERTICULAR DISEASE Prior Level of Function Bed Mobility: 6 Transfers: 6 Gait: 6 Indoor Mobility (Ambulation): Independent Stairs: Not Applicalbe Prior Devices Use: Walker Self Care: Needed Some Help Functional Cognition: Independent 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 Drive Self: No Current Level of Fuctioning Roll Left to Right: 6 Sit to Lyin Lying to Sitting/Side of Bed: 4 Sit to Stand: 4 Chair/Qiu-wj-Fpvdm Xfer: 4 Car Transfer: 4 Does the Patient Walk: Yes Mode of Locomotion: Walk Anticipated Mode of Locomotion: Walk Walk 10 feet: 4 Walk 50 ft with 2 Turns: 4 Walk 150 ft: 4 Walking 10ft on uneven surface: 4 Gait Assistive Device: FWW Wheel 50 ft with 2 turns: 9 Wheel 150 ft: 9 1 Step (curb): 3 4 Steps: 88 12 Steps: 9 Picking up an Object: 88 Eatin Oral Hygiene: 4 Shower/Bathe Self: 3 (Mod assist to wash rear phoebe area and bilateral feet in shower.) Upper Body Dressin Lower Body Dressin On/Off Footwear: 2 Toileting Hygiene: 3 (Min assist to pull brief over hips.) PM&R Allergy/Meds/Data Review Allergies Coded Allergies: Penicillins (Verified Allergy, Unknown, 10/01/19) Home Medications Scheduled Aspirin (Aspirin EC), 81 MG PO DAILY, (Reported) Benazepril HCl (Benazepril HCl), 20 MG PO DAILY, (Reported) Carvedilol (Carvedilol), 6.25 MG PO BID, (Reported) Mirtazapine (Mirtazapine), 7.5 MG PO HS, (Reported) Pantoprazole Sodium (Pantoprazole Sodium), 40 MG PO 1900, (Reported) Timolol Maleate (Timolol Maleate 0.5%), 1 DROP OS BID, (Reported) Triamterene/Hydrochlorothiazid (Triamterene-Hctz 75-50 mg Tab), 1 EACH PO DAILY, (Reported) Scheduled PRN Acetaminophen (Tylenol), 650 MG PO Q6H PRN for PAIN-MILD (1-4), (Reported) Clotrimazole (Clotrimazole), 1 APPLIC TOP DAILY PRN for RASH, (Reported) Clotrimazole (Clotrimazole), 1 APPLIC TP DAILY PRN for RASH, (Reported) Discontinued Medications ALPRAZolam (Xanax Tablet), 0.25 MG PO Q8H PRN for ANXIETY Discontinued Reason: No Longer Taking Amlodipine Besylate (Amlodipine Besylate), 10 MG PO DAILY, (Reported) Discontinued Reason: No Longer Taking Brimonidine Tartrate/Timolol (Combigan Eye Drops), 1 DROP OS BID, (Reported) Discontinued Reason: No Longer Taking Carvedilol (Carvedilol), 12.5 MG PO BID Discontinued Reason: Duplicate Order Clonidine HCl (Clonidine HCl), 0.1 MG PO DAILY PRN for DBP OVER 160, (Reported) Discontinued Reason: No Longer Taking Clotrimazole (Clotrimazole), 1 APPLIC TOP DAILY PRN for RASH, (Reported) Discontinued Reason: Duplicate Order Cyanocobalamin (Cyanocobalamin Injection), 1,000 MCG INJ MONTHLY, (Reported) Discontinued Reason: Duplicate Order Docusate Sodium (Colace), 100 MG PO DAILY PRN for CONSTIPATION-1ST LINE, (Reported) Discontinued Reason: No Longer Taking Lactulose (Enulose), 15 ML PO DAILY PRN for CONSTIPATION-3RD LINE, (Reported) Discontinued Reason: No Longer Taking Metoclopramide HCl (Metoclopramide HCl), 5 MG PO BID Discontinued Reason: No Longer Taking Metoclopramide HCl (Metoclopramide HCl), 5 MG PO, (Reported) Discontinued Reason: No Longer Taking Mirtazapine (Mirtazapine), 7.5 MG PO HS Discontinued Reason: Duplicate Order Ondansetron HCl (Ondansetron HCl), 0.4 MG PO TID PRN for NAUSEA/VOMITING-1ST LINE, (Reported) Discontinued Reason: No Longer Taking Prednisoln Sp/Moxiflox/Bromfen (Pred cB-Vioa-Ielu 1-0.5-0.075%), (Reported) Discontinued Reason: No Longer Taking Triamterene/Hydrochlorothiazid (Triamterene-Hctz 75-50 mg Tab), 1 EA PO DAILY Discontinued Reason: Duplicate Order Current Medications Current Medications Reviewed Review of Systems Constitutional: see HPI, dizziness, malaise, weakness EENTM: no symptoms reported Respiratory: no symptoms reported Cardiovascular: no symptoms reported Gastrointestinal: no symptoms reported Genitourinary: no symptoms reported Musculoskeletal: no symptoms reported Skin: no symptoms reported Psychiatric/Neurological: Depressed All Other Systems Reviewed Negative Unless Noted: Yes Physical Exam Physical Exam Vital Signs Vital Signs - First Documented 06/11/20 14:17 Pulse Ox 96 O2 Delivery Room Air Capillary Refill : Height, Weight, BMI Height: 5'2.00" Weight: 188lbs. 1.6oz. 85.364487vd; 35.75 BMI Method:Stated General Appearance: No Apparent Distress, WD/WN, Chronically ill Eyes: Bilateral Eye Normal Inspection, Bilateral Eye PERRL HEENT: PERRL/EOMI, Normal ENT Inspection, Pharynx Normal Neck: Full Range of Motion, Normal Inspection, Non Tender, Supple, Carotid Bruit Respiratory: Chest Non Tender, Lungs Clear, Normal Breath Sounds, No Accessory Muscle Use, No Respiratory Distress Cardiovascular: Regular Rate, Rhythm, No Edema, No Gallop, No JVD, No Murmur, Normal Peripheral Pulses Gastrointestinal: Normal Bowel Sounds, No Organomegaly, No Pulsatile Mass, Non Tender, Soft Back: Normal Inspection, No CVA Tenderness, No Vertebral Tenderness Extremity: Normal Capillary Refill, Normal Inspection, Normal Range of Motion, Non Tender, No Calf Tenderness, No Pedal Edema Neurologic/Psychiatric: Alert, Oriented x3, Normal Mood/Affect, Abnormal Gait, Motor Weakness (generalized lower extremities) Skin: Normal Color, Warm/Dry Lymphatic: No Adenopathy PM&R Medical Assessment & Plan REHAB/MEDICAL ASSESSMENT AND PLAN: REHAB IMPAIRMENT GROUP: Debility ETIOLOGIC DIAGNOSIS: Debility The comorbidities that impact the patients function and/or functional outcome by: advanced age, lives alone, hyponatremia, generalized weakness REHAB PLAN: The patient is being admitted to our comprehensive inpatient rehabilitation facility and can tolerate the intensity of service consisting of at least: 180 minutes of therapy a day, 5 out of 7 days a week Rehab treatment will consist of: PT OT will focus on regaining function and strength in order to return to independent living with the use of AD The patient/family has a good understanding of our discharge process and will benefit from an interdisciplinary inpatient rehabilitation program. The patient has potential to make improvement and is in need of at least two of the following multidisciplinary therapies including but not limited to physical, occupational, speech, and prosthetics and orthotics. Additionally the patient will need services from respiratory, nutritional services, wound care, psychology, etc. (Customize this to each patient). Given the patients complex condition and risk of further medical complications, rehabilitation services cannot be safely or effectively provided at a lower level of care such as a [facility], [place]. BARRIERS TO DISCHARGE: Advanced age and lives alone ESTIMATED LOS: 7 days DISPOSITION: Home RELEVANT CHANGES SINCE PREADMISSION SCREENING: I have compared the patients medical and functional status at the time of the preadmission screening and there are: no changes PROGNOSIS: Good REHABILITATION GOALS: 1. PT OT will focus on regaining function and strength in order to return to independent living with the use of AD All the above goals were reviewed with the patient and he/she is in agreement. By signing this document, I acknowledge that I have personally performed a full physical examination on this patient within 24 hours of admission to this inpatient rehabilitation facility and have determined the patient to be able to tolerate the above course of treatment at an intensive level for a reasonable period of time. I will be completing a detailed individualized Plan of Care for this patient by day #4 of the patients stay based upon the Preadmission Screen, the Post-Admission Evaluation, and the therapy evaluations. Admission Dx/Comorbidities: (1) Debility ICD Codes: R53.81 - Other malaise (2) Generalized weakness Status: Acute ICD Codes: R53.1 - Weakness (3) Hyponatremia Status: Acute ICD Codes: E87.1 - Hypo-osmolality and hyponatremia (4) Electrolyte abnormality ICD Codes: E87.8 - Other disorders of electrolyte and fluid balance, not elsewhere classified (5) Essential (primary) hypertension Status: Chronic ICD Codes: I10 - Essential (primary) hypertension Assessment/Plan Assessment and Plan Assess & Plan/Chief Complaint Assessment: Debility Hyponatremia holding HCTZ Severe weakness Dysphagia with gastric ulcers in the past on EGD HTN GERD Glaucoma Gastroparesis Edema legs Plan: Monitor closely Check labs Home MARKO Petty DO Jun 11, 2020 18:10
[2020-06-11 18:12] VITALS: BP 148/66
[2020-06-11] MEDS ORDERED: CLOTRIMAZOLE 1% CREAM (LOTRIMIN) 30 GM TP PRN (18:15)
[2020-06-11] MEDS: PANTOPRAZOLE 40 MG (PROTONIX) TAB PO SCH (20:36)
[2020-06-11] MEDS: MIRTAZAPINE 15 MG (REMERON) TAB PO SCH (20:37)
[2020-06-11] MEDS: TIMOLOL MALEATE 0.5% 5 ML (TIMOPTIC) BTL OS SCH (20:37)
[2020-06-11] MEDS: CARVEDILOL 12.5 MG (COREG) TABLET PO SCH (20:37)
[2020-06-11] MEDS: MELATONIN 3 MG TABLET PO PRN (20:41)
[2020-06-12 05:00] VITALS: BP 151/69
[2020-06-12 06:46] LABS: BASOPHILS # (AUTO) 0.1 10^3/uL (0.0-0.1); BASOPHILS % (AUTO) 1 % (0-10); EOSINOPHILS # (AUTO) 0.3 10^3/uL (0.0-0.3); EOSINOPHILS % (AUTO) 5 % (0-10); HEMATOCRIT 32 % (35-52); HEMOGLOBIN 10.9 g/dL (11.5-16.0); LYMPHOCYTES # (AUTO) 1.6 10^3/uL (1.0-4.0); LYMPHOCYTES % (AUTO) 23 % (12-44); MEAN CORPUSCULAR HEMOGLOBIN 31 pg (25-34); MEAN CORPUSCULAR HGB CONC 34 g/dL (32-36); MEAN CORPUSCULAR VOLUME 90 fL (80-99); MEAN PLATELET VOLUME 9.2 fL (9.0-12.2); MONOCYTES # (AUTO) 0.7 10^3/uL (0.0-1.0); MONOCYTES % (AUTO) 10 % (0-12); NEUTROPHILS # (AUTO) 4.5 10^3/uL (1.8-7.8); NEUTROPHILS % (AUTO) 62 % (42-75); PLATELET COUNT 164 10^3/uL (130-400); WHITE BLOOD COUNT 7.2 10^3/uL (4.3-11.0)
[2020-06-12 06:57] LABS: ALBUMIN 3.1 GM/DL (3.2-4.5)
[2020-06-12 06:59] LABS: CALCIUM 8.2 MG/DL (8.5-10.1)
[2020-06-12 07:00] LABS: TOTAL PROTEIN 5.6 GM/DL (6.4-8.2)
[2020-06-12 07:02] LABS: BILIRUBIN,TOTAL 0.6 MG/DL (0.1-1.0)
[2020-06-12 07:04] LABS: CREATININE SERUM 0.93 MG/DL (0.60-1.30)
[2020-06-12 09:00] VITALS: BP 124/58
--- NOTE | 2020-06-12 09:23 | PM&R Progress Note ---
Subjective HPI/CC On Admission Date Seen by Provider: Jun 12, 2020 Time Seen by Provider: 10:00 Subjective/Events-last exam 06/12/20: Pt doing really well today Sodium level up at 133 Ordered Reglan BID the way she takes it Podiatry consult initiated Bowels moved yesterday Review of Systems General: Fatigue, Malaise Objective Exam Vital Signs Vital Signs Date Time Temp Pulse Resp B/P (MAP) Pulse Ox O2 Delivery O2 Flow Rate FiO2 06/12/20 20:00 97 Room Air 06/12/20 18:39 36.2 69 20 148/65 (92) Capillary Refill : General Appearance: No Apparent Distress, WD/WN, Chronically ill HEENT: PERRL/EOMI, Normal ENT Inspection, Pharynx Normal Neck: Full Range of Motion, Normal Inspection, Non Tender, Supple, Carotid Bruit Respiratory: Chest Non Tender, Lungs Clear, Normal Breath Sounds, No Accessory Muscle Use, No Respiratory Distress Cardiovascular: Regular Rate, Rhythm, No Edema, No Gallop, No JVD, No Murmur, Normal Peripheral Pulses Gastrointestinal: Normal Bowel Sounds, No Organomegaly, No Pulsatile Mass, Non Tender, Soft Back: Normal Inspection, No CVA Tenderness, No Vertebral Tenderness Extremity: Normal Capillary Refill, Normal Inspection, Normal Range of Motion, Non Tender, No Calf Tenderness, No Pedal Edema Neurologic/Psychiatric: Alert, Oriented x3, Normal Mood/Affect, Abnormal Gait, Motor Weakness (generalized lower extremities) Skin: Normal Color, Warm/Dry Lymphatic: No Adenopathy Results/Procedures Lab Laboratory Tests 06/12/20 06:40 Patient resulted labs reviewed. FIM Transfers Therapy Code Descriptions/Definitions Functional [place] Measure: 0=Not Assessed/NA 4=Minimal Assistance 1=Total Assistance 5=Supervision or Setup 2=Maximal Assistance 6=Modified [place] 3=Moderate Assistance 7=Complete IndependenceSCALE: Activities may be completed with or without assistive devices. 1-Vokskzcvtz-gznimhp completes the activity by him/herself with no assistance from a helper. 5-Set-up or Clean-up Assistance-helper sets up or cleans up; patient completes activity. [place] assists only prior to or following the activity. 4-Supervision or Touching Assistance-helper provides verbal cues and/or touching/steadying and/or contact guard assistance as patient completes activity. Assistance may be provided throughout the activity or intermittently. 3-Partial/Moderate Assistance-helper does LESS THAN HALF the effort. [place] lifts, holds or supports trunk or limbs, but provides less than half the effort. 2-Substantial/Maximal Assistance-helper does MORE THAN HALF the effort. [place] lifts or holds trunk or limbs and provides more than half the effort. 5-Uxavzlcga-zfhnzd does ALL the effort. Patient does none of the effort to complete the activity. Or, the assistance of 2 or more helpers is required for the patient to complete the activity. If activity was not attempted, code reason: 7-Patient Refused. 9-Not Applicable-not attempted and the patient did not perform the activity before the current illness, exacerbation or injury. 10-Not Attempted due to Environmental Limitations-(lack of equipment, weather restraints, etc.). 88-Not Attempted due to Medical Conditions or Safety Concerns. Roll Left to Right (QC): 6 Sit to Lying (QC): 4 Sit to Stand (QC): 4 Chair/Pki-ef-Ufhvt Xfer(QC): 4 Car Transfer (QC): 4 Gait Training Does the Patient Walk?: Yes Walk 10 feet (QC): 4 Walk 50 ft with 2 Turns(QC): 4 Walk 150 ft (QC): 4 Walking 10ft/uneven surface-QC: 4 Gait Assistive Device: FWW Wheelchair Training Wheel 50 ft with 2 turns (QC): 9 Wheel 150 ft (QC): 9 Stair Training 1 Step (curb) (QC): 3 4 Steps (QC): 88 12 Steps (QC): 9 Balance Picking up an Object (QC): 88 ADL-Treatment Eating (QC): 5 Oral Hygiene (QC): 4 Shower/Bathe Self (QC): 3 (Mod assist to wash rear phoebe area and bilateral feet in shower.) Upper Body Dressing (QC): 4 Lower Body Dressing (QC): 2 On/Off Footwear (QC): 2 Toileting Hygiene (QC): 3 (Min assist to pull brief over hips.) Assessment/Plan Assessment and Plan Assess & Plan/Chief Complaint Assessment: Debility Hyponatremia holding HCTZ Severe weakness Dysphagia with gastric ulcers in the past on EGD HTN GERD Glaucoma Gastroparesis Edema legs Plan: Monitor closely Check labs Home meds 06/12/20: Monitor closely Hold HCTZ Monitor BP (1) Debility (2) Generalized weakness Status: Acute (3) Hyponatremia Status: Acute (4) Electrolyte abnormality (5) Essential (primary) hypertension Status: Chronic MARKO ANDERS DO Jun 12, 2020 09:23
--- NOTE | 2020-06-12 09:24 | Individualized Plan of Care ---
Individualized Plan of Care Rehab Nursing IPOC Order Admission Date Jun 11, 2020 at 11:34 Current Orders Orders Admission Order(Inpt,Obs,Sdc) (06/10/20 20:40) Vital Signs: Per Unit Policy ( 08,16,00 (06/10/20 20:40) Anam Vern (06/10/20 20:40) Sequential Compression Device .admit (06/10/20 20:40) Repairer Recreational Vehicle-Inpt Rehab Con (06/10/20 20:40) Rehab Nursing Orders-Ipoc (06/10/20 20:40) Physical Therapy Rehab Orders (06/10/20 20:40) Occupational Therapy Rehab Ord (06/10/20 20:40) Speech Therapy Rehab Orders (06/10/20 20:40) Intake & Output ,, (06/10/20 20:40) Precautions (Aru) (06/10/20 20:40) Weekly Weight WEEK (06/10/20 20:40) Rehab-Intensity Of Therapy (06/10/20 20:40) Initiate Admission Nursing Pro .admission (06/10/20 20:40) Acetaminophen Tablet (Tylenol Tablet) (06/10/20 20:45) Alprazolam Tablet (Xanax Tablet) (06/10/20 20:45) Calcium Carbonate Chew Tablet (Antacid C (06/10/20 20:45) Diphenhydramine Tablet (Benadryl Tablet) (06/10/20 20:45) Docusate Sodium Capsule (Colace Capsule) (06/10/20 21:00) Docusate Sodium Capsule (Colace Capsule) (06/10/20 20:45) Bisacodyl Suppository (Dulcolax Supposit (06/10/20 20:45) Lactulose Oral Solution (Enulose Oral So (06/10/20 20:45) Na Phos/Na Biphos Enema (Fleet Enema Almas (06/10/20 20:45) Guaifenesin/Codeine Syrup (Robitussin Ac (06/10/20 20:45) Loperamide Tablet (Imodium Tablet) (06/10/20 20:45) Melatonin Tablet (Melatonin Tablet) (06/10/20 20:45) Polyethylene Glycol Powder Pkt (Miralax (06/10/20 21:00) Ondansetron Oral Dissolve Tab (Zofran (06/10/20 20:45) Senna S Tablet (Senokot S Tablet) (06/10/20 21:00) Initiate Admission Nursing Pro .admission (06/10/20 20:40) Admission Arrival Bed Request (06/11/20 11:34) Acetaminophen Tablet/Caplet (Tylenol T (06/11/20 12:00) General/Regular (06/11/20 Lunch) Patient Visit (06/11/20 ) Pt Eval Moderate Complexity (06/11/20 ) Functional Activities, Ea 15 (06/11/20 ) Consult General Surgery (06/11/20 18:11) Acetaminophen Tablet/Caplet (Tylenol T (06/11/20 18:15) Aspirin Enteric Coated Tablet (Ecotrin T (06/12/20 09:00) Carvedilol Tablet (Coreg Tablet) (06/11/20 21:00) Clotrimazole 1% Cream (Lotrimin 1% Cream (06/11/20 18:15) Pantoprazole Tablet (Protonix Tablet) (06/11/20 19:00) Timolol 0.5% Ophthalmic Soln (Timoptic 0 (06/11/20 21:00) Lisinopril Tablet (Zestril Tablet) (06/12/20 09:00) (Nf) Clotrimazole (06/11/20 18:15) Mirtazapine Tablet (Remeron Tablet) (06/11/20 21:00) Cbc With Automated Diff (06/12/20 07:00) Comprehensive Metabolic Panel (06/12/20 07:00) Metoclopramide Tablet (Reglan Tablet) (06/13/20 07:00) Metoclopramide Tablet (Reglan Tablet) (06/12/20 21:00) Consult Podiatry (06/12/20 09:22) Patient Visit (06/12/20 ) Speech Sound Lang Comp (06/12/20 ) Patient Visit (06/12/20 ) Functional Activities, Ea 15 (06/12/20 ) Exercise Therap, Ea 15 Min (06/12/20 ) Gait Training, Ea 15 Min (06/12/20 ) Metoclopramide Tablet (Reglan Tablet) (06/12/20 17:33) Metoclopramide Tablet (Reglan Tablet) (06/13/20 06:00) Rehab Nursing Orders: Ongoing Assess. of Cognitive Status, Ongoing Assess. of Function Status, Bladder Management, Bladder Scan, Bladder Training, Bowel Management, Bowel Training, Disease Management & Educaiton, DVT Prophylaxis, Fall Prevention, Fluid/Electrolyte/Nutrition Mgmt, Infection Prevention, Medication Management & Education, Management of Risks & Complications, Management of Skin Intergrity, Nutrition Management, Pain Management, Patient/Family Support, Safety Management, Swallow Precautions Intensity of Therapy to be met Patient to be seen: Min.3h per day/5 of 7d PT IPOC Problem List: Activity Tolerance, Functional Strength, Safety, Balance, Gait, Transfer, ROM Treatment Plan: Continue Plan of Care Bed Mobility, Concurrent Therapy, Education, Functional Activity Jsaper, Functional Strength, Group Therapy, Gait, Safety, Therapeutic Exercise, Transfers Treatment Duration: Jul 02, 2020 Frequency: At least 5 of 7 days/Wk (IRF) Estimated Hrs Per Day: 1.5 hours per day OT IPOC Problems: Decreased Activ Tolerance, Decreased UE Strength, Impaired I ADL's, Impaired Self-Care Skills, Restricted Funct UE ROM OT Treatment, Training and Edu: Yes Plan of Care: ADL Retraining, Functional Mobility, UE Funct Exercise/Act Treatment Duration: Jul 02, 2020 Frequency: At least 5 of 7 days/Wk (IRF) Estimated Hrs Per Day: 1.[address] IPOC Speech Therapy Treatment Plan: Discontinue ST Treatment Duration: Jun 12, 2020 Frequency: Modified Program (IRF) Estimated Hrs Per Day: Other Repairer Recreational Vehicle/Case Mgmt Repairer Recreational Vehicle/Case Managemen: Discharge Planning Dietitian/Pillowcase Cleaner Dietitian/Pillowcase Cleaner to monitor nutritional status and make changes and/or recommendations as needed and work with speech pathology on dietary upgrades as the occur. Physician IPOC Medical Issues being managed closely and that require the 24 hour availability of a physician: Recent hyponatremia and severe weakness episode will require close monitoring of sodium level and BP management along with dysphagia management Medical Issues: Bowel/Bladder Function, DVT Prophylaxis, Falls Precautions, Fluid/Electrolyte/Nutrition Balance, Infection Protection, Pain Management, Swallowing Precautions Brief Synthesis of Preadmission Screen, Post-Admission Evaluation, and Therapy Evaluations: PT OT will focus on regaining function in order to return to living independently along with the use of AD to improve ADL's Medical Prognosis: Good Anticipated Length of Stay: 7 days MARKO ANDERS DO Jun 12, 2020 09:24
--- NOTE | 2020-06-12 09:28 | Physical Therapy Daily Note ---
PT Daily Note-Current Subjective Patient reports mild dizziness during sit <> stand transfers, reports moderate nausea but she did not want to take zofran because it makes her drowsy. Patient also reports mild SOA during functional activities. Patient had no reports of pain. Appearance Patient was left post tx seated upright in chair, with call button within reach and tray table positioned beside her. Mental Status Patient Orientation: Normal For Age Attachments: Other-See Comments (Mask while out of room) Transfers SCALE: Activities may be completed with or without assistive devices. 1-Kvucoglutd-fprfsyf completes the activity by him/herself with no assistance from a helper. 5-Set-up or Clean-up Assistance-helper sets up or cleans up; patient completes activity. [place] assists only prior to or following the activity. 4-Supervision or Touching Assistance-helper provides verbal cues and/or touching/steadying and/or contact guard assistance as patient completes activity. Assistance may be provided throughout the activity or intermittently. 3-Partial/Moderate Assistance-helper does LESS THAN HALF the effort. [place] lifts, holds or supports trunk or limbs, but provides less than half the effort. 2-Substantial/Maximal Assistance-helper does MORE THAN HALF the effort. [place] lifts or holds trunk or limbs and provides more than half the effort. 7-Xnjhivnqg-ptiabs does ALL the effort. Patient does none of the effort to complete the activity. Or, the assistance of 2 or more helpers is required for the patient to complete the activity. If activity was not attempted, code reason: 7-Patient Refused. 9-Not Applicable-not attempted and the patient did not perform the activity before the current illness, exacerbation or injury. 10-Not Attempted due to Environmental Limitations-(lack of equipment, weather restraints, etc.). 88-Not Attempted due to Medical Conditions or Safety Concerns. Roll Left & Right (QC): 4 Sit to Lying (QC): 4 Lying to Sitting/Side of Bed(Q: 4 Sit to Stand (QC): 4 Chair/Elr-yd-Imkfh Xfer(QC): 4 Toilet Transfer (QC): 4 Patient requires CGA x1 with transfers, secondary to reports of dizziness with sit <> stand. Instructed patient to push off from seated position with both hands, which moderately improved the efficiency of sit <> stand transfer. Patient noted to consistently demonstrate adequate backing up until the back of her knees touch the seat before beginning to descend to seated position, without required cueing from PT. Weight Bearing Right Lower Extremity: Right Full Weight Bearing Left Lower Extremity: Left Full Weight Bearing Gait Training Does the Patient Walk?: Yes Distance: 150' x2 Walk 10 feet (QC): 4 Walk 50 ft with 2 Turns(QC): 4 Walk 150 ft (QC): 4 Gait Persons Needed: 1 Gait Assistive Device: FWW Patient ambulates with slow pace but is steady with no obvious LOB throughout gait cycle. During tx session, patient instructed to turn to both sides using walker to create situations within the home when patient would have to navigate small areas. Patient was able to maintain turns and sidestepping to a stable seat without LOB. Wheelchair Training Does the Pt Use a Wheelchair?: No Exercises Seated Therapy Exercises: Ankle pumps, Sit to stand, Long arc quads, Hip flexion, Hip abd/add Seated Reps: 12 Standing: Hip Abduction, Hamstring curls, Heel/toe raises Standing Reps: 20 Patient unable to tolerate supine position greater than 1 minute. Practiced bed transfers from the side of bed patient would use at home, patient required 2 attempts before able to complete transfer, with CGA x1. Patient required several rest breaks between exercises, and noted SOB often. Treatments Patient was able to take herself into the bathroom, manage clothing up/down, get up off the toilet, go to sink and brush her hair with CGA x1. Assessment Current Status: Good Progress, Fair Progress Patient required several rest breaks secondary to SOB and mild nausea complaints. Sp02 levels taken throughout treatment, recorded at 99%, 98%, and 99% again at end of treatment. Patient reported slight dizziness with sit <> stand. BP was taken in R arm in seated position and recorded at 125/61 mmHg. PT Short Term Goals Short Term Goals Time Frame: Jun 18, 2020 Roll Left & Right: 6 Sit to lyin Lying to sitting on side of be: 5 Sit to stand: 5 Chair/tge-di-tpqig transfer: 5 Toilet transfer: 5 Car transfer: 5 Walk 10 feet: 5 Walk 50 feet with two turns: 5 Walk 150 feet: 5 Walking 10ft on uneven surface: 5 1 step (curb): 4 4 steps: 4 12 steps: 9 Picking up objects: 4 PT Longterm Goals Longterm Goals PT Confidential Secretary Goals Time Frame: Jul 02, 2020 Roll Left & Right (QC): 6 Sit to Lying (QC): 6 Lying-Sitting on Side/Bed(QC): 6 Sit to Stand (QC): 6 Chair/Klf-hl-Soukl Xfer(QC): 6 Toilet Transfer (QC): 6 Car Transfer (QC): 6 Does the Patient Walk: Yes Walk 10 feet (QC): 6 Walk 50ft with 2 Turns (QC): 6 Walk 150 ft (QC): 6 Walking 10ft on Uneven Surface: 6 1 Step (curb) (QC): 6 4 Steps (QC): 5 12 Steps (QC): 9 Picking up an Object (QC): 5 Does the Pt use WC or Scooter?: No Wheel 50 feet with 2 turns (QC: 9 Type: N/A Wheel 150 feet: 9 Type: N/A PT Plan Problem List Problem List: Activity Tolerance, Functional Strength, Safety, Balance, Gait, Transfer, Bed Mobility, ROM Treatment/Plan Treatment Plan: Continue Plan of Care Treatment Plan: Bed Mobility, Concurrent Therapy, Education, Functional Activity [place], Functional Strength, Group Therapy, Gait, Safety, Therapeutic Exercise, Transfers Treatment Duration: Jul 02, 2020 Frequency: At least 5 of 7 days/Wk (IRF) Estimated Hrs Per Day: 1.5 hours per day Patient and/or Family Agrees t: Yes Safety Risks/Education Patient Education: Transfer Techniques, Correct Positioning, Disease Process, Safety Issues Teaching Recipient: Patient Teaching Methods: Demonstration, Discussion Response to Teaching: Verbalize Understanding, Return Demonstration, Reinforcement Needed Patient instructed to push off of seat during ascent of sit <> stand transfer, and reach back for the seat handle during the descent. Time/GCodes Time In: 0800 Time Out: 929 Total Billed Treatment Time: 90 Total Billed Treatment 1 visit: FA x2: 35' EX x2: 30' GT x2: 25' CEDRIC DODD PTA Jun 12, 2020 09:28
[2020-06-12] MEDS: DOCUSATE SODIUM 100 MG (COLACE) CAP PO SCH ×2 (09:41→21:07)
[2020-06-12] MEDS: CARVEDILOL 12.5 MG (COREG) TABLET PO SCH ×2 (09:42→21:07)
[2020-06-12] MEDS: lisINopril 20 MG (PRINIVIL) TABLET PO SCH (09:43)
[2020-06-12] MEDS: ASPIRIN E.C. 81 MG (ECOTRIN) TAB PO SCH (09:43)
[2020-06-12] MEDS: SENNA W/DOCUSATE (SENOKOT S) TABLET PO SCH ×2 (09:43→21:07)
[2020-06-12] MEDS: TIMOLOL MALEATE 0.5% 5 ML (TIMOPTIC) BTL OS SCH ×2 (09:44→21:11)
[2020-06-12] MEDS: polyethylene glycoL POWDER 17 GM (MIRALAX) PACK PO SCH ×2 (09:45→21:10)
--- NOTE | 2020-06-12 10:02 | Consultation - Surgery ---
MEGAN RIVAS MED STUDENT 06/12/20 1002: History of Present Illness History of Present Illness Patient Consulted On(tc/time) 06/12/20 09:58 Date Seen by Provider: Jun 12, 2020 Time Seen by Provider: 09:45 History of Present Illness Patient is awake and sitting up in chair this morning, just got done with PT. States she is in the hospital for some weakness and hyponatremia. Would like to get an EGD. States she was going to get one last summer from Dr. Astorga but but was having some blood pressure problems and ended up not getting one. States she was diagnosed with hiatal hernia years ago, wasn't sure how long exactly. She also had an EGD done about 3 years ago as well as colonoscopy. States she thinks the colonoscopy showed some polyps but no cancer. States at that time she was told her hiatal hernia was about the same, had some stomach ulcers. She also has a LUQ hernia that she sates she was told she was too old to have repaired. She states starting about 6 months ago, she started to notice a fullness or "icky" feeling when she eats. No pain, no radiation. Almost always nausea with eating, only has vomited maybe twice over this whole period or when she feels she needs to clear her hiatal hernia. Over the last 6 months it has not gotten worse or better, she thinks it has just stayed the same. States she has reglan to take with her meals that makes it better but if she takes it 3 times a day she feels too groggy. States eating late and eating spicy foods make it worse. She denies abdominal pain or problems with bowel movements. She would like to get an EGD to see if it has gotten worse. Allergies and Home Medications Allergies Coded Allergies: Penicillins (Verified Allergy, Unknown, 10/01/19) Home Medications Acetaminophen 325 Mg Tablet, 650 MG PO Q6H PRN for PAIN-MILD (1-4), (Reported) TAKES 2 (325MG) TABLETS Aspirin 81 Mg Tablet.dr, 81 MG PO DAILY, (Reported) Benazepril HCl 40 Mg Tab, 20 MG PO DAILY, (Reported) TAKES OF A 40MG TABLET Carvedilol 12.5 Mg Tablet, 6.25 MG PO BID, (Reported) TAKES OF A 12.5MG TABLET Clotrimazole 10 Gm Powder, 1 APPLIC TOP DAILY PRN for RASH, (Reported) Clotrimazole 15 Gm Cream..g., 1 APPLIC TP DAILY PRN for RASH, (Reported) Mirtazapine 15 Mg Tablet, 7.5 MG PO HS, (Reported) TAKES OF A 15MG TABLET Pantoprazole Sodium 40 Mg Tablet.dr, 40 MG PO 1900, (Reported) Timolol Maleate 5 Ml Drops, 1 DROP OS BID, (Reported) Triamterene/Hydrochlorothiazid 1 Each Tablet, 1 EACH PO DAILY, (Reported) Past Izznshk-Oiejae-Fvwhxd Hx Patient Social History Smoking Status: Never a Smoker 2nd Hand Smoke Exposure: No Recent Hopitalizations: No Alcohol Use?: No Have you traveled recently?: No Immunizations Up To Date Tetanus Booster (TDap): More than 5yrs PED Vaccines UTD: Yes Date of Pneumonia Vaccine: Apr 30, 2018 Date of Influenza Vaccine: Nov 21, 2019 Seasonal Allergies Seasonal Allergies: No Surgeries History of Surgeries: Yes (CATARACTS;EGD'S/COLONOSCOPIES; R WRIST FX/EXTERNAL FIXATOR;) Surgeries: Abdominal (EGD x2 Colonoscopy x2), Adenoidectomy, Appendectomy, Eye Surgery, Gallbladder, Hysterectomy, Orthopedic (Plate in R Ulna), Parathyroidectomy, Thyroidectomy (Subtotal Thyroidectomy), Tonsillectomy Respiratory History of Respiratory Disorde: No (pulmonary hypertension) Cardiovascular History of Cardiac Disorders: Yes (IRREGULAR HEART BEAT- irregular ekg, carotid artery stenosis, aortic regurg) Cardiac Disorders: High Cholesterol, Hypertension, Irregular Heartbeat Neurological History of Neurological Disord: No Reproductive System Hx Reproductive Disorders: No Sexually Transmitted Disease: No 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 Genitourinary History of Genitourinary Disor: No Gastrointestinal History of Gastrointestinal Di: Yes Gastrointestinal Disorders: Gastroesophageal Reflux, Chronic Constipation, Diverticulosis, Hiatal Hernia, Ulcer Musculoskeletal History of Musculoskeletal Dis: Yes (R WRIST FX/EXTERNAL FIXATOR 08/2016;R WRIST FX -NO SURGERY) Musculoskeletal Disorders: Arthritis, Fractures (R ulna Fracture) Endocrine History of Endocrine Disorders: Yes Endocrine Disorders: Parathyroid Disease HEENT History of HEENT Disorders: Yes HEENT Disorders: Cataract, Glaucoma Loss of Vision: Denies Hearing Impairment: Denies Cancer History of Cancer: No Psychosocial History of Psychiatric Problem: No Integumentary History of Skin or Integumenta: No Blood Transfusions History of Blood Disorders: No Adverse Reaction to a Blood Tr: No Family Medical History Significant Family History: Heart Disease, Hypertension, Stroke Family Medial History: Completed stroke Hypertension Myocardial infarction Review of Systems-General Constitutional: No chills, No fever, No weakness EENTM: eye pain (Thinks glaucoma worsening); No blurred vision, No throat pain Respiratory: No cough; short of breath (States some SOB at rest); No wheezing Cardiovascular: No chest pain; edema, palpitations (States she felt some palpitations on her first night she was admitted) Gastrointestinal: No abdominal pain; dysphagia (Sometimes hard to swallow); No melena; nausea; No vomiting Genitourinary: No dysuria, No frequency, No hematuria Physical Exam-General Problems Physical Exam Vital Signs Vital Signs - First Documented 06/11/20 06/11/20 14:17 18:12 Temp 36.5 Pulse 76 Resp 20 B/P (MAP) 148/66 (93) Pulse Ox 96 O2 Delivery Room Air Capillary Refill : General Appearance: no apparent distress Respiratory: chest non-tender, lungs clear, normal breath sounds, no respiratory distress, no accessory muscle use Cardiovascular: regular rate, rhythm, no murmur Peripheral Pulses: 2+ Radial Pulses (R), 2+ Radial Pulses (L) Gastrointestinal: normal bowel sounds, non tender, soft, no organomegaly, hernia (Large LUQ hernia) Rectal: deferred Extremities: non-tender, no calf tenderness, pedal edema (No pitting) Neurologic/Psychiatric: alert, normal mood/affect Skin: normal color, warm/dry Data Review Labs Laboratory Tests 06/12/20 06:40: White Blood Count 7.2, Red Blood Count 3.51L, Hemoglobin 10.9L, Hematocrit 32L, Mean Corpuscular Volume 90, Mean Corpuscular Hemoglobin 31, Mean Corpuscular Hemoglobin Concent 34, Red Cell Distribution Width 13.3, Platelet Count 164, Mean Platelet Volume 9.2, Immature Granulocyte % (Auto) 0, Neutrophils (%) (Auto) 62, Lymphocytes (%) (Auto) 23, Monocytes (%) (Auto) 10, Eosinophils (%) (Auto) 5, Basophils (%) (Auto) 1, Neutrophils # (Auto) 4.5, Lymphocytes # (Auto) 1.6, Monocytes # (Auto) 0.7, Eosinophils # (Auto) 0.3, Basophils # (Auto) 0.1, Immature Granulocyte # (Auto) 0.0, Sodium Level 133L, Potassium Level 4.0, Chloride Level 103, Carbon Dioxide Level 22, Anion Gap 8, Blood Urea Nitrogen 10, Creatinine 0.93, Estimat Glomerular Filtration Rate 57, BUN/Creatinine Ratio 11, Glucose Level 98, Calcium Level 8.2L, Corrected Calcium 8.9, Total Bilirubin 0.6, Aspartate Amino Transf (AST/SGOT) 12, Alanine Aminotransferase (ALT/SGPT) 8, Alkaline Phosphatase 66, Total Protein 5.6L, Albumin 3.1L Assessment/Plan Assessment/Plan Admission Diagonsis Hiatal Hernia and Nausea w/ eating -Pt already on anti acid and anti nausea medication -Schedule pt for EGD possibly tomorrow, PT should be NPO before procedure -No need for diet restrictions unless pt can no longer tolerate foods Hyponatremia -133 today up from 124 on her arrival, stable -Continue daily CMP -If starts to decrease, IV saline or salt tablets Weakness -Daily PT/OT -Monitor Na with daily CMP -Improving KALEY ASTORGA DO 06/12/20 1700: History of Present Illness History of Present Illness Time Seen by Provider: 14:21 History of Present Illness Surgery asked to consult regarding possible EGD. HPI: pt states she has felt weak recently and "a fullness in my stomach". Hx o f stomach ulcers, last biopsy was H. Pylori negative. Allergies and Home Medications Allergies Coded Allergies: Penicillins (Verified Allergy, Unknown, 10/01/19) Home Medications Acetaminophen 325 Mg Tablet, 650 MG PO Q6H PRN for PAIN-MILD (1-4), (Reported) TAKES 2 (325MG) TABLETS Aspirin 81 Mg Tablet.dr, 81 MG PO DAILY, (Reported) Benazepril HCl 40 Mg Tab, 20 MG PO DAILY, (Reported) TAKES OF A 40MG TABLET Carvedilol 12.5 Mg Tablet, 6.25 MG PO BID, (Reported) TAKES OF A 12.5MG TABLET Clotrimazole 10 Gm Powder, 1 APPLIC TOP DAILY PRN for RASH, (Reported) Clotrimazole 15 Gm Cream..g., 1 APPLIC TP DAILY PRN for RASH, (Reported) Mirtazapine 15 Mg Tablet, 7.5 MG PO HS, (Reported) TAKES OF A 15MG TABLET Pantoprazole Sodium 40 Mg Tablet.dr, 40 MG PO 1900, (Reported) Timolol Maleate 5 Ml Drops, 1 DROP OS BID, (Reported) Triamterene/Hydrochlorothiazid 1 Each Tablet, 1 EACH PO DAILY, (Reported) Patient Home Medication List Home Medication List Reviewed: Yes Past Rtxbryv-Svzilp-Zujope Hx Patient Social History Smoking Status: Never a Smoker Surgeries History of Surgeries: Yes Surgeries: Abdominal (EGD x2 Colonoscopy x2), Adenoidectomy, Appendectomy, Eye Surgery, Gallbladder, Hysterectomy Respiratory History of Respiratory Disorde: No Cardiovascular History of Cardiac Disorders: No Neurological History of Neurological Disord: No Genitourinary History of Genitourinary Disor: No Gastrointestinal History of Gastrointestinal Di: Yes Gastrointestinal Disorders: Hiatal Hernia, Ulcer, Gall Bladder Disease Musculoskeletal History of Musculoskeletal Dis: Yes Musculoskeletal Disorders: Arthritis Endocrine History of Endocrine Disorders: No HEENT History of HEENT Disorders: Yes HEENT Disorders: Cataract Loss of Vision: Bilateral Hearing Impairment: Hard of Hearing Cancer History of Cancer: No Psychosocial History of Psychiatric Problem: No Family Medical History Significant Family History: Heart Disease, Hypertension Family Medial History: Completed stroke Hypertension Myocardial infarction Review of Systems-General Constitutional: No chills, No fever; weakness EENTM: eye pain (Thinks glaucoma worsening), dental problems; No blurred vision, No throat pain Respiratory: No cough; short of breath (States some SOB at rest); No wheezing Cardiovascular: No chest pain; edema, palpitations (States she felt some palpitations on her first night she was admitted) Gastrointestinal: No abdominal pain; dysphagia (Sometimes hard to swallow); No melena; nausea; No vomiting Genitourinary: No dysuria, No frequency, No hematuria Musculoskeletal: joint pain, joint swelling, muscle pain, muscle stiffness Skin: No change in color, No change in hair/nails Psychiatric/Neurological: Denies Anxiety, Denies Depressed; Seizure Other pt denies any hx of abnormal bleeding or bruising Physical Exam-General Problems Physical Exam General Appearance: WD/WN, no apparent distress Eyes: Bilateral Eye PERRL, Bilateral Eye EOMI HEENT: pharynx normal; No scleral icterus (R), No scleral icterus (L) Neck: non-tender, supple; No thyromegaly Respiratory: chest non-tender, lungs clear, normal breath sounds, no respiratory distress, no accessory muscle use Cardiovascular: regular rate, rhythm, no murmur Gastrointestinal: normal bowel sounds, non tender, soft, no organomegaly Extremities: non-tender, no calf tenderness, pedal edema (No pitting) Neurologic/Psychiatric: manager skilled II-XII nml as tested, alert, normal mood/affect Skin: normal color, warm/dry Lymphatic: no adenopathy (neck, axilla or groin) Assessment/Plan Assessment/Plan Assessment/Plan Hiatal Hernia and Nausea w/ eating, ??Dysphagia -Pt already on anti acid and anti nausea medication -Schedule pt for EGD, will make NPO before procedure -No need for diet restrictions unless pt can no longer tolerate foods Hyponatremia - improved -133 today up from 124 on her arrival, stable -Continue daily CMP -If starts to decrease, IV saline or salt tablets Weakness -Daily PT/OT -Improving HTN, Abdominal pain Supervisory-Addendum Brief Verification & Attestation Participated in pt care: history, MDM, physical Personally performed: exam, history, MDM Care discussed with: Medical Student Procedures: n/a Verification and Attestation of Medical Student E/M Service A medical student performed and documented this service. I then reviewed and steven ified all information documented by the medical student and made modifications to such information, when appropriate. I personally performed a physical exam, medical decision making and then discussed any differences between the notes and made revisions as necessary to create one note. Kaley Astorga , 06/12/20 , 17:06 MEGAN RIVAS MED STUDENT Jun 12, 2020 10:02 KALEY ASTORGA DO Jun 12, 2020 17:00
--- NOTE | 2020-06-12 11:27 | Occupational Ther Daily Note ---
OT Current Status-Daily Note Subjective Pt alert, sitting in recliner. Pt agrees to therapy. No c/o pain. Mental Status/Objective Patient Orientation: Person, Place, Time, Situation ADL-Treatment Pt SOA during treatment and requires multiple recovery breaks. Pt declines bathing, dressing and oral care. Supervision with toileting then washing hands at sink. Pt ambulated to therapy gym with recovery breaks to/from. Therapy Code Descriptions/Definitions Functional [place] Measure: 0=Not Assessed/NA 4=Minimal Assistance 1=Total Assistance 5=Supervision or Setup 2=Maximal Assistance 6=Modified [place] 3=Moderate Assistance 7=Complete IndependenceSCALE: Activities may be completed with or without assistive devices. 5-Sntybsnavk-dewvlrf completes the activity by him/herself with no assistance from a helper. 5-Set-up or Clean-up Assistance-helper sets up or cleans up; patient completes activity. [place] assists only prior to or following the activity. 4-Supervision or Touching Assistance-helper provides verbal cues and/or touching/steadying and/or contact guard assistance as patient completes activity. Assistance may be provided throughout the activity or intermittently. 3-Partial/Moderate Assistance-helper does LESS THAN HALF the effort. [place] lifts, holds or supports trunk or limbs, but provides less than half the effort. 2-Substantial/Maximal Assistance-helper does MORE THAN HALF the effort. [place] lifts or holds trunk or limbs and provides more than half the effort. 5-Objfsmztg-dmkgge does ALL the effort. Patient does none of the effort to complete the activity. Or, the assistance of 2 or more helpers is required for the patient to complete the activity. If activity was not attempted, code reason: 7-Patient Refused. 9-Not Applicable-not attempted and the patient did not perform the activity before the current illness, exacerbation or injury. 10-Not Attempted due to Environmental Limitations-(lack of equipment, weather restraints, etc.). 88-Not Attempted due to Medical Conditions or Safety Concerns. Toileting Hygiene (QC): 4 Toilet Transfer (QC): 4 Other Treatment Pt completed arm bike for 15 min at minimal resistance to increase strength and activity tolerance for daily functional tasks. Pt then completed wrist exercises with 2# wt L UE and 1# wt R UE. Wrist flex/ext/radial deviation 10 reps 3 sets. Due to plate in R forearm no wt completed with radial deviation. Pt then ambulated to INU kitchen area. Pt states that at home she uses 4WW to transport items from microwave to table. Pt only uses microwave to cook with or warm up food family has brought. After therapy, pt sitting in recliner with call light/phone in reach. All needs met in room. OT Short Term Goals Short Term Goals Time Frame: Jun 18, 2020 Eatin Oral hygiene: 5 Toileting hygiene: 4 Shower/bathe self: 4 Upper body dressin Lower body dressin (With AE) Putting on/taking off footwear: 4 (With AE) OT Fuel Dock Attendant Goals Fuel Dock Attendant Goals Time Frame: Jul 02, 2020 Eating (QC): 6 Oral Hygiene (QC): 6 Toileting Hygiene (QC): 6 Shower/Bathe Self (QC): 5 Upper Body Dressing (QC): 6 Lower Body Dressing (QC): 5 On/Off Footwear (QC): 5 (With AE) Additional Goals: 1-Demonstrate ADL Tasks, 2-Verbalize Understanding, 3- ImproveStrength/[place] 1=Demonstrate adherence to instructed precautions during ADL tasks. 2=Patient will verbalize/demonstrate understanding of assistive devices/modifications for ADL. 3=Patient will improve strength/tolerance for activity to enable patient to perform ADL's. OT Education/Plan Problem List/Assessment Assessment: Decreased Activ Tolerance, Decreased UE Strength, Impaired Self- Care Skills Discharge Recommendations Plan/Recommendations: Continue POC Treatment Plan/Plan of Care Patient would benefit from OT for education, treatment and training to promote independence in ADL's, mobility, safety and/or upper extremity function for ADL's. Plan of Care: ADL Retraining, Functional Mobility, UE Funct Exercise/Act Treatment Duration: Jul 02, 2020 Frequency: At least 5 of 7 days/Wk (IRF) Estimated Hrs Per Day: 1.5 hours per day Agreement: Yes Rehab Potential: Fair Time/GCodes Start Time: 10:00 Stop Time: 11:15 Total Time Billed (hr/min): 75 Billed Treatment Time 1 visit-ADL 1 (10 min) FA 1 (15 min) EX 3 (50 min) JOELLE JI Jun 12, 2020 11:27
--- NOTE | 2020-06-12 12:28 | ST Cognitive Linguistic Eval ---
Speech Evaluation-General Medical Diagnosis Hyponatremia/Nausea/Debility Onset Date: Jun 09, 2020 Therapy Diagnosis Therapy Diagnosis: Cognitive-communication Referral Referring Physician: Dr. Corona Medical History Pertinent Medical History: Arthritis, CAD, HTN Reviewed History: Yes Social History Current Living Status: Alone Speech PLF-Current Status Prior Level of Function Patient lives alone where she is independent for her daily needs. She does have family near by for support as needed. Subjective Patient was pleasant and cooperative with the cognitive assessment. Language Eval: Auditory Comprehends Simple Yes/No Ques: Functional Indent/Objects Multiple Esquivel: Functional Ident/Pics in Multiple Esquivel: Functional Follows 1-Step Commands: Functional Follows Complex Directions: Functional Follows General Conversations: Functional Language Eval: Verbal Language Completes Spontaneous Greeting: Functional Produces Auto, Serial Info: Functional Imitates Simple Words/Phrases: Functional Word Finding: Functional Requests Basic Needs: Functional States Basic Personal Info: Functional Expresses Complex Ideas: Functional Objective Cognitive Domain Attention: WNL Memory: WNL Problem Solving: Functional Executive Functions: WNL Visuospatial Skills: WNL Composite Severity Rating: WNL Clock Drawing Severity Rating: WNL Objective Formal/Standardized Tests [facility] Mental Status ([facility]) Results 28/30, within normal limits Oral Motor/Speech Production Within Normal Limits Impression Patient is a pleasant 84 y/o woman who was admitted to the ARU due to debility from decreased sodium. Patient was given the SLUMS with a score of 28/30 obtained. This score is within the normal range of function. Patient exhibits appropriate cognitive function, speech production and swallowing function. No further ST services are warranted at this time. Speech Patient Assess Expression of Ideas/Wants: Expression (4) Understanding Verbal Content: Understands (4) Brief Interview-Mental Status: Yes Repetition of Three Words: Three (3) Temporal Orientation: Year: Correct (3) Temporal Orientation: Month: Accurate within 5 days(2) Temporal Orientation: Day: Correct (1) Recall : Wear to say "Sock": Yes, no cue required (2) Recall : Color: Yes, no cue required (2) Recall : Bed: Yes, no cue required (2) Memory/Recall Ability: Current season, That he or she is in a hsp/hsp unit Speech-Plan Patient/Family Goals Patient/Family Goals: Patient plans on returning to her home upon discharge. Treatment Plan Speech Therapy Treatment Plan: Discontinue ST Treatment Duration: Jun 12, 2020 Frequency: 1 time per week Estimated Hrs Per Day: .5 hour per day Rehab Potential: Fair Barriers to Learning: Patient's recent decline in health, age Pt/Family Agrees to Plan: Yes Safety Risks/Education Teaching Recipient: Patient Teaching Methods: Discussion Response to Teaching: Verbalize Understanding Education Topics Provided: Safety within her room and communication of wants/needs Time Speech Therapy Time In: 09:30 Speech Therapy Time Out: 10:00 Total Billed Time: 30 Billed Treatment Time 1, JT Huff Jun 12, 2020 12:28
[2020-06-12] MEDS: PANTOPRAZOLE 40 MG (PROTONIX) TAB PO SCH (17:51)
[2020-06-12] MEDS: METOCLOPRAMIDE 5 MG (REGLAN) TAB PO SCH (17:51)
--- NOTE | 2020-06-12 17:52 | Podiatry Progress Note ---
Standard Progress Note Progress Notes/Assess & Plan Date Seen by a Provider: Jun 12, 2020 Time Seen by a Provider: 17:51 Progress/Assessment & Plan Consultation dictated. Foot care given. Final Diagnosis Onychomycosis, Peripheral Neuropathy NIKI CAMPA DPM Jun 12, 2020 17:52
[2020-06-12 18:39] VITALS: BP 148/65
--- NOTE | 2020-06-12 19:55 | CONSULTATION REPORT ---
DATE OF SERVICE: 06/12/2020 REASON FOR CONSULTATION: Continuation of foot care. HISTORY OF PRESENT ILLNESS: This 84-year-old was admitted to inpatient rehabilitation after she had a bout of generalized weakness with hyponatremia. The patient indicates she is feeling much better, although she is not sure why the hyponatremia was a problem in the first place. She has difficulty reaching for and caring for her feet. She is complaining about foot care as well as her toenails at this point as it is becoming uncomfortable, especially with ambulation. PAST MEDICAL HISTORY: Adenoidectomy, appendectomy, eye surgery, cholecystectomy, hysterectomy, orthopedic surgery, parathyroidectomy, tonsillectomy, high cholesterol, hypertension, irregular heartbeat, gastroesophageal reflux, chronic constipation, diverticulitis, hiatal hernia and ulcer, arthritis, history of fractures, parathyroid disease, cataracts, and glaucoma. SOCIAL HISTORY: The patient is single, retired. Never smoker and denies alcohol use. ALLERGIES: She has an allergy to PENICILLIN. CURRENT MEDICATIONS: Listed on the patient's chart. PHYSICAL EXAMINATION: LOWER EXTREMITY: The patient has peripheral vascular 2/4 dorsalis pedis pulse, 0/4 posterior tibial pulse bilaterally. Pitting edema noted to the lower leg and ankle bilaterally. Cap refill time is less than 3 seconds to the hallux bilaterally. NEUROLOGIC: The patient has diminished vibratory sensation to the forefoot bilaterally, intact protective sensation with 10 gram monofilament wire examination bilaterally. SKIN: Dermatologically, she has thick yellow dystrophic toenails with subungual debris R 2 3, 4, 5 and L 1 and 4 digits. There are no open lesions identified bilaterally. MUSCULOSKELETAL FINDINGS: The patient has 4/5 muscle strength to the four major quadrants of the foot bilaterally. ASSESSMENT: 1. Onychomycosis. 2. Peripheral neuropathy. 3. Muscle weakness. PLAN: Various treatment options were discussed with the patient today. Her toenails were debrided manually mechanically to the R 2 3, 4, 5 and L 1 and 4 digits. Betadine applied. We once again discussed oral and topical antifungal medications. She is welcome to follow up in the office upon discharge. Job ID: [id number] DocumentID: [id number] Dictated Date: 06/12/2020 17:57:45 Adolescent Medicine Specialist Date: 06/12/2020 19:53:29 Dictated By: SALAZAR HAMMOND
[2020-06-12] MEDS ORDERED: METOCLOPRAMIDE 5 MG (REGLAN) TAB PO SCH (21:00)
[2020-06-12] MEDS: MELATONIN 3 MG TABLET PO PRN (21:07)
[2020-06-12] MEDS: MIRTAZAPINE 15 MG (REMERON) TAB PO SCH (21:07)
[2020-06-13] MEDS: METOCLOPRAMIDE 5 MG (REGLAN) TAB PO SCH ×2 (06:06→17:04)
[2020-06-13 06:15] VITALS: BP 147/71
[2020-06-13] MEDS ORDERED: METOCLOPRAMIDE 5 MG (REGLAN) TAB PO SCH (07:00)
[2020-06-13] MEDS: DOCUSATE SODIUM 100 MG (COLACE) CAP PO SCH ×2 (07:30→17:05)
[2020-06-13] MEDS: SENNA W/DOCUSATE (SENOKOT S) TABLET PO SCH ×2 (07:30→20:50)
[2020-06-13] MEDS: ASPIRIN E.C. 81 MG (ECOTRIN) TAB PO SCH (07:30)
[2020-06-13] MEDS: lisINopril 20 MG (PRINIVIL) TABLET PO SCH (07:30)
[2020-06-13] MEDS: CARVEDILOL 12.5 MG (COREG) TABLET PO SCH ×2 (07:30→20:51)
[2020-06-13] MEDS: TIMOLOL MALEATE 0.5% 5 ML (TIMOPTIC) BTL OS SCH ×2 (07:31→20:52)
--- NOTE | 2020-06-13 08:27 | Progress Note - Surgery ---
MEGAN RIVAS MED STUDENT 06/13/20 0827: Subjective Date Seen by a Provider: Jun 13, 2020 Time Seen by a Provider: 07:20 Subjective/Events-last exam Patient is sitting up in chair this morning. States she has no pain at all. States her stomach hasnt been acting up any more than normal since yesterday. She was wondering if she could get some lactulose since she has not had a bowel movement since wednesday and feels bloated. She had some reflux last night. She got an antiacid this morning. She has some nausea with eating but otherwise no other symptoms. She is doing well with pt, has no other concerns this morning. Just wanted to be sure her procedure was happening wednesday. Review of Systems General: No Chills, No Malaise HEENT: No Head Aches, No Visual Changes Pulmonary: No Dyspnea, No Cough Cardiovascular: Edema; No: Chest Pain, Palpitations Gastrointestinal: Nausea (mild with food), Constipation (LBM wednesday); No: Vomiting, Abdominal Pain Genitourinary: No Dysuria, No Incontinence Musculoskeletal: No: leg pain Objective Exam Vital Signs Date Time Temp Pulse Resp B/P (MAP) Pulse Ox O2 Delivery O2 Flow Rate FiO2 06/13/20 08:07 Room Air 06/13/20 06:15 37.0 72 20 147/71 (96) 96 Room Air 06/12/20 20:00 97 Room Air 06/12/20 18:39 36.2 69 20 148/65 (92) 97 Room Air 06/12/20 09:00 Room Air 06/12/20 09:00 70 124/58 (80) I & O 06/13/20 07:00 Intake Total 1180 ml Output Total 3 ml Balance 1177 ml Capillary Refill : General Appearance: No Apparent Distress, WD/WN Respiratory: Chest Non Tender, Lungs Clear, Normal Breath Sounds, No Accessory Muscle Use, No Respiratory Distress Cardiovascular: Regular Rate, Rhythm, No Edema, No Murmur, Normal Peripheral Pulses Peripheral Pulses: 2+ Radial Pulses (R), 2+ Radial Pulses (L) Gastrointestinal: normal bowel sounds, non tender, soft Extremity: Non Tender, No Calf Tenderness, Pedal Edema Neurologic/Psychiatric: Alert, Oriented x3 Skin: Normal Color, Warm/Dry Lymphatic: No Adenopathy Assessment/Plan Assessment/Plan Assessment/Plan Hiatal Hernia and Nausea w/ eating, ??Dysphagia -Pt already on anti acid and anti nausea medication -EGD scheduled for wednesday, will make NPO tonight -No need for diet restrictions unless pt can no longer tolerate foods Hyponatremia - improved -No new labs today, patient has no symptoms currently -CBC if suspicious for decreasing sodium -If starts to decrease, IV saline or salt tablets Weakness -Daily PT/OT -Improving HTN, Abdominal pain FILI ASTORGA DO 06/13/201955: Subjective Time Seen by a Provider: 18:23 Subjective/Events-last exam Pt seen and examined, states no changes. Complains of some constipation today a nd "reflux" last night. Review of Systems General: No Chills, No Malaise Pulmonary: No Dyspnea, No Cough Cardiovascular: No: Chest Pain, Palpitations Gastrointestinal: Nausea (mild with food), Constipation (LBM wednesday); No: Vomiting, Abdominal Pain Genitourinary: No Dysuria, No Incontinence Objective Exam General Appearance: No Apparent Distress, WD/WN Respiratory: Lungs Clear, Normal Breath Sounds, No Accessory Muscle Use, No Respiratory Distress Cardiovascular: Regular Rate, Rhythm, No Murmur Gastrointestinal: non tender, soft Extremity: Non Tender, No Calf Tenderness, Pedal Edema Neurologic/Psychiatric: Alert, Oriented x3 Assessment/Plan Assessment/Plan Assessment/Plan Hiatal Hernia and Nausea w/ eating, ??Dysphagia -Pt already on anti acid and anti nausea medication -EGD scheduled for tomorrow, will make NPO tonight -No need for diet restrictions unless pt can no longer tolerate foods Hyponatremia - improved -No new labs today, patient has no symptoms currently -CBC if suspicious for decreasing sodium -If starts to decrease, IV saline or salt tablets Weakness -Daily PT/OT -Improving HTN, Abdominal pain Supervisory-Addendum Brief Verification & Attestation Participated in pt care: history, MDM, physical Personally performed: exam, history, MDM Care discussed with: Medical Student Procedures: n/a Verification and Attestation of Medical Student E/M Service A medical student performed and documented this service. I then reviewed and verified all information documented by the medical student and made modifications to such information, when appropriate. I personally performed a physical exam, medical decision making and then discussed any differences between the notes and made revisions as necessary to create one note. Fili Astorga , 06/13/20 , 19:56 MEGAN RIVAS STUDENT Jun 13, 2020 08:27 FILI ASTORGA DO Jun 13, 2020 19:56
--- NOTE | 2020-06-13 09:28 | Physical Therapy Daily Note ---
PT Daily Note-Current Subjective Pt. agrees to Rx. Pt. states she feels she will need a laxative later and this will be her afternoon "project" Pain Location: No Pain Reported Mental Status Patient Orientation: Normal For Age Transfers SCALE: Activities may be completed with or without assistive devices. 1-Agceraxmqo-qguynoo completes the activity by him/herself with no assistance from a helper. 5-Set-up or Clean-up Assistance-helper sets up or cleans up; patient completes activity. [place] assists only prior to or following the activity. 4-Supervision or Touching Assistance-helper provides verbal cues and/or touching/steadying and/or contact guard assistance as patient completes activity. Assistance may be provided throughout the activity or intermittently. 3-Partial/Moderate Assistance-helper does LESS THAN HALF the effort. [place]iner lifts, holds or supports trunk or limbs, but provides less than half the effort. 2-Substantial/Maximal Assistance-helper does MORE THAN HALF the effort. [place] lifts or holds trunk or limbs and provides more than half the effort. 9-Shtzmktfy-ysojil does ALL the effort. Patient does none of the effort to complete the activity. Or, the assistance of 2 or more helpers is required for the patient to complete the activity. If activity was not attempted, code reason: 7-Patient Refused. 9-Not Applicable-not attempted and the patient did not perform the activity before the current illness, exacerbation or injury. 10-Not Attempted due to Environmental Limitations-(lack of equipment, weather restraints, etc.). 88-Not Attempted due to Medical Conditions or Safety Concerns. Sit to Stand (QC): 5 Chair/Ola-si-Vmuie Xfer(QC): 5 Toilet Transfer (QC): 5 Car Transfer (QC): 4 pt. needed mod to min assist to get LEs into car simulator and states this is how her family has had to help her manage this for yrs Weight Bearing Right Lower Extremity: Right Full Weight Bearing Left Lower Extremity: Left Full Weight Bearing Gait Training Does the Patient Walk?: Yes Walk 10 feet (QC): 5 Walk 50 ft with 2 Turns(QC): 5 Walk 150 ft (QC): 5 Gait Persons Needed: 1 Gait Assistive Device: FWW pt. c/o some SOB with activity , O2 sats 96% , HR72 throughout Rx, side steps, backing, turning all with SBA and instruction in safety Wheelchair Training Does the Pt Use a Wheelchair?: No Stair Training pt. declines stairs stating she has no steps to negotiate Exercises Seated Therapy Exercises: Ankle pumps, Sit to stand, Hip flexion, Reaching activity, Hip abd/add Seated Reps: 15 Standing: Hip Abduction, Hamstring curls, Heel/toe raises, Marching, Side steps Standing Reps: 15 NuStep Minutes: 15 NuStep Workload: 2 Treatments toileted SBA , washed hands SBA Assessment Current Status: Good Progress PT Short Term Goals Short Term Goals Time Frame: Jun 18, 2020 Roll Left & Right: 6 Sit to lyin Lying to sitting on side of be: 5 Sit to stand: 5 Chair/rbj-lr-uovjr transfer: 5 Toilet transfer: 5 Car transfer: 5 Walk 10 feet: 5 Walk 50 feet with two turns: 5 Walk 150 feet: 5 Walking 10ft on uneven surface: 5 1 step (curb): 4 4 steps: 4 12 steps: 9 Picking up objects: 4 PT Sap Portal Consultant Goals Care Home Goals PT Care Home Goals Time Frame: Jul 02, 2020 Roll Left & Right (QC): 6 Sit to Lying (QC): 6 Lying-Sitting on Side/Bed(QC): 6 Sit to Stand (QC): 6 Chair/Jaa-vb-Jaiyx Xfer(QC): 6 Toilet Transfer (QC): 6 Car Transfer (QC): 6 Does the Patient Walk: Yes Walk 10 feet (QC): 6 Walk 50ft with 2 Turns (QC): 6 Walk 150 ft (QC): 6 Walking 10ft on Uneven Surface: 6 1 Step (curb) (QC): 6 4 Steps (QC): 5 12 Steps (QC): 9 Picking up an Object (QC): 5 Does the Pt use WC or Scooter?: No Wheel 50 feet with 2 turns (QC: 9 Type: N/A Wheel 150 feet: 9 Type: N/A PT Plan Treatment/Plan Treatment Plan: Continue Plan of Care Treatment Plan: Bed Mobility, Concurrent Therapy, Education, Functional Activity [place], Functional Strength, Group Therapy, Gait, Safety, Therapeutic Exercise, Transfers Treatment Duration: Jul 02, 2020 Frequency: At least 5 of 7 days/Wk (IRF) Estimated Hrs Per Day: 1.5 hours per day Patient and/or Family Agrees t: Yes Safety Risks/Education Patient Education: Gait Training, Transfer Techniques, Correct Positioning, Disease Process, Safety Issues Teaching Recipient: Patient Teaching Methods: Demonstration, Discussion Response to Teaching: Verbalize Understanding, Return Demonstration, Reinforcement Needed Time/GCodes Time In: 800 Time Out: 930 Total Billed Treatment Time: 90 Total Billed Treatment 1,EX40m,FA20m,GT30m CEDRIC DODD PTA Jun 13, 2020 09:28
[2020-06-13] MEDS: polyethylene glycoL POWDER 17 GM (MIRALAX) PACK PO SCH ×2 (09:30→17:05)
--- NOTE | 2020-06-13 10:23 | PM&R Progress Note ---
Subjective HPI/CC On Admission Date Seen by Provider: Jun 13, 2020 Time Seen by Provider: 10:30 Subjective/Events-last exam 06/13/20: Patient doing well No issues Had her COVID vaccine 2nd dose 05/11/20 Coughed on Lactulose so initiated IS No pain reported 06/12/20: Pt doing really well today Sodium level up at 133 Ordered Reglan BID the way she takes it Podiatry consult initiated Bowels moved yesterday Review of Systems General: Fatigue, Malaise Objective Exam Vital Signs Vital Signs Date Time Temp Pulse Resp B/P (MAP) Pulse Ox O2 Delivery O2 Flow Rate FiO2 06/13/20 20:00 97 Room Air 06/13/20 17:48 37.7 80 18 159/56 (90) Capillary Refill : General Appearance: No Apparent Distress, WD/WN, Chronically ill HEENT: PERRL/EOMI, Normal ENT Inspection, Pharynx Normal Neck: Full Range of Motion, Non Tender, Supple Respiratory: Chest Non Tender, Lungs Clear, Normal Breath Sounds, No Accessory Muscle Use, No Respiratory Distress Cardiovascular: Regular Rate, Rhythm, No Murmur, Normal Peripheral Pulses Gastrointestinal: Normal Bowel Sounds, No Organomegaly, No Pulsatile Mass, Non Tender, Soft Back: Normal Inspection, No CVA Tenderness, No Vertebral Tenderness Extremity: Normal Capillary Refill, Normal Inspection, Normal Range of Motion, Non Tender, No Calf Tenderness, Pedal Edema Neurologic/Psychiatric: Alert, Oriented x3, Normal Mood/Affect, power plant operator II-XII Norm as Tested, Abnormal Gait, Motor Weakness Skin: Normal Color, Warm/Dry Lymphatic: No Adenopathy Results/Procedures Lab Patient resulted labs reviewed. FIM Transfers Therapy Code Descriptions/Definitions Functional [place] Measure: 0=Not Assessed/NA 4=Minimal Assistance 1=Total Assistance 5=Supervision or Setup 2=Maximal Assistance 6=Modified [place] 3=Moderate Assistance 7=Complete IndependenceSCALE: Activities may be completed with or without assistive devices. 7-Cozjigzvvv-rsanepk completes the activity by him/herself with no assistance from a helper. 5-Set-up or Clean-up Assistance-helper sets up or cleans up; patient completes activity. [place] assists only prior to or following the activity. 4-Supervision or Touching Assistance-helper provides verbal cues and/or touching/steadying and/or contact guard assistance as patient completes activity. Assistance may be provided throughout the activity or intermittently. 3-Partial/Moderate Assistance-helper does LESS THAN HALF the effort. [place] lifts, holds or supports trunk or limbs, but provides less than half the effort. 2-Substantial/Maximal Assistance-helper does MORE THAN HALF the effort. [place] lifts or holds trunk or limbs and provides more than half the effort. 8-Ejczvbict-jawixr does ALL the effort. Patient does none of the effort to complete the activity. Or, the assistance of 2 or more helpers is required for the patient to complete the activity. If activity was not attempted, code reason: 7-Patient Refused. 9-Not Applicable-not attempted and the patient did not perform the activity before the current illness, exacerbation or injury. 10-Not Attempted due to Environmental Limitations-(lack of equipment, weather restraints, etc.). 88-Not Attempted due to Medical Conditions or Safety Concerns. Roll Left to Right (QC): 4 Sit to Lying (QC): 4 Sit to Stand (QC): 5 Chair/Htg-hz-Nrjtr Xfer(QC): 5 Car Transfer (QC): 4 Gait Training Does the Patient Walk?: Yes Distance: 150' x2 Walk 10 feet (QC): 5 Walk 50 ft with 2 Turns(QC): 5 Walk 150 ft (QC): 5 Walking 10ft/uneven surface-QC: 4 Gait Persons Needed: 1 Gait Assistive Device: FWW Wheelchair Training Does the Pt Use a Wheelchair?: No Wheel 50 ft with 2 turns (QC): 9 Wheel 150 ft (QC): 9 Stair Training 1 Step (curb) (QC): 3 4 Steps (QC): 88 12 Steps (QC): 9 Balance Picking up an Object (QC): 88 ADL-Treatment Eating (QC): 5 Oral Hygiene (QC): 4 Shower/Bathe Self (QC): 3 (Mod assist to wash rear phoebe area and bilateral feet in shower.) Upper Body Dressing (QC): 4 Lower Body Dressing (QC): 2 On/Off Footwear (QC): 2 Toileting Hygiene (QC): 4 Toilet Transfer (QC): 4 Assessment/Plan Assessment and Plan Assess & Plan/Chief Complaint Assessment: Debility Hyponatremia holding HCTZ Severe weakness Dysphagia with gastric ulcers in the past on EGD HTN GERD Glaucoma Gastroparesis Edema legs Plan: Monitor closely Check labs Home meds 06/12/20: Monitor closely Hold HCTZ Monitor BP 06/13/20: Monitor BP Monitor for pain (1) Debility (2) Generalized weakness Status: Acute (3) Hyponatremia Status: Acute (4) Electrolyte abnormality (5) Essential (primary) hypertension Status: Chronic MARKO ANDERS DO Jun 13, 2020 10:23
[2020-06-13 11:25] VITALS: BP 182/76
--- NOTE | 2020-06-13 11:32 | Occupational Ther Daily Note ---
OT Current Status-Daily Note Subjective Pt alert, sitting in recliner. Pt agrees to therapy. No c/o pain at this time. Mental Status/Objective Patient Orientation: Person, Place, Time, Situation Attachments: IV ADL-Treatment Pt declines shower, agrees to sponge bath. Pt states that her stomach is rolling because of meds to make bowels move. During session, pt states that her family cleans her feet, dons/doffs socks/shoes, threads clothing over feet and applies lotion to legs. Pt able to complete toilet transfer with supervision, supervision when manipulating clothing and independent with cleansing self sitting on toilet. Pt sits at sink to complete oral care and sponge bath. Independent for oral care. Completes upper body, phoebe area and buttocks by self then assist to complete lower legs/feet. Pt completes toileting 3x's during session. Therapy Code Descriptions/Definitions Functional [place] Measure: 0=Not Assessed/NA 4=Minimal Assistance 1=Total Assistance 5=Supervision or Setup 2=Maximal Assistance 6=Modified [place] 3=Moderate Assistance 7=Complete IndependenceSCALE: Activities may be completed with or without assistive devices. 8-Hrdftizwxl-pziddol completes the activity by him/herself with no assistance from a helper. 5-Set-up or Clean-up Assistance-helper sets up or cleans up; patient completes activity. [place] assists only prior to or following the activity. 4-Supervision or Touching Assistance-helper provides verbal cues and/or touching/steadying and/or contact guard assistance as patient completes activity. Assistance may be provided throughout the activity or intermittently. 3-Partial/Moderate Assistance-helper does LESS THAN HALF the effort. [place] lifts, holds or supports trunk or limbs, but provides less than half the effort. 2-Substantial/Maximal Assistance-helper does MORE THAN HALF the effort. [place] lifts or holds trunk or limbs and provides more than half the effort. 3-Ziitlcgps-nhlfmk does ALL the effort. Patient does none of the effort to complete the activity. Or, the assistance of 2 or more helpers is required for the patient to complete the activity. If activity was not attempted, code reason: 7-Patient Refused. 9-Not Applicable-not attempted and the patient did not perform the activity before the current illness, exacerbation or injury. 10-Not Attempted due to Environmental Limitations-(lack of equipment, weather restraints, etc.). 88-Not Attempted due to Medical Conditions or Safety Concerns. Oral Hygiene (QC): 6 Upper Body Dressing (QC): 5 Lower Body Dressing (QC): 3 On/Off Footwear: 2 Toileting Hygiene (QC): 4 Toilet Transfer (QC): 4 Other Treatment Pt completed arm bike for 15 min at minimal resistance with 1 recovery break to increase strength and activity tolerance for daily functional tasks. Pt then began to complete resistive clothes pins to increase equipment tester and pinch strength for fine motor strengthening then requested to use bathroom. Pt began to complete B UE strengthening exercises then nrsg came in for meds.Pt took medication to increase bowel movement and choked on medicine. Nrsg in room and pt continued to cough and felt nauseous. Pt requested to use bathroom again during coughing fit. After therapy, pt sitting in recliner with call light/phone in reach. All needs met in room. OT Short Term Goals Short Term Goals Time Frame: Jun 18, 2020 Eatin Oral hygiene: 5 Toileting hygiene: 4 Shower/bathe self: 4 Upper body dressin Lower body dressin (With AE) Putting on/taking off footwear: 4 (With AE) OT Apiarist Goals Apiarist Goals Time Frame: Jul 02, 2020 Eating (QC): 6 Oral Hygiene (QC): 6 Toileting Hygiene (QC): 6 Shower/Bathe Self (QC): 5 Upper Body Dressing (QC): 6 Lower Body Dressing (QC): 5 On/Off Footwear (QC): 5 (With AE) Additional Goals: 1-Demonstrate ADL Tasks, 2-Verbalize Understanding, 3- ImproveStrength/Jasper 1=Demonstrate adherence to instructed precautions during ADL tasks. 2=Patient will verbalize/demonstrate understanding of assistive devices/modifications for ADL. 3=Patient will improve strength/tolerance for activity to enable patient to perform ADL's. OT Education/Plan Problem List/Assessment Assessment: Decreased Activ Tolerance, Decreased UE Strength, Impaired Self- Care Skills, Restricted Funct UE ROM Discharge Recommendations Plan/Recommendations: Continue POC Treatment Plan/Plan of Care Patient would benefit from OT for education, treatment and training to promote independence in ADL's, mobility, safety and/or upper extremity function for ADL's. Plan of Care: ADL Retraining, Functional Mobility, UE Funct Exercise/Act Treatment Duration: Jul 02, 2020 Frequency: At least 5 of 7 days/Wk (IRF) Estimated Hrs Per Day: 1.5 hours per day Agreement: Yes Rehab Potential: Fair Time/GCodes Start Time: 10:00 Stop Time: 11:30 Total Time Billed (hr/min): 90 Billed Treatment Time 1 visit-ADL 3 (45 min) EX 3 (45 min) JOELLE JI Jun 13, 2020 11:32
[2020-06-13] MEDS: PANTOPRAZOLE 40 MG (PROTONIX) TAB PO SCH (17:04)
[2020-06-13 17:48] VITALS: BP 159/56
[2020-06-13] MEDS: MELATONIN 3 MG TABLET PO PRN (20:51)
[2020-06-13] MEDS: MIRTAZAPINE 15 MG (REMERON) TAB PO SCH (20:52)
[2020-06-14 06:00] VITALS: BP 156/78
[2020-06-14] MEDS: METOCLOPRAMIDE 5 MG (REGLAN) TAB PO SCH ×2 (06:00→17:17)
--- NOTE | 2020-06-14 06:11 | PM&R Progress Note ---
Subjective HPI/CC On Admission Date Seen by Provider: Jun 14, 2020 Time Seen by Provider: 13:00 Subjective/Events-last exam 06/14/20: Doing well EGD reviewed Feels better BM yesterday 06/13/20: Patient doing well No issues Had her COVID vaccine 2nd dose 05/11/20 Coughed on Lactulose so initiated IS No pain reported 06/12/20: Pt doing really well today Sodium level up at 133 Ordered Reglan BID the way she takes it Podiatry consult initiated Bowels moved yesterday Review of Systems HEENT: Dysphasia Neurological: Weakness Objective Exam Vital Signs Vital Signs Date Time Temp Pulse Resp B/P (MAP) Pulse Ox O2 Delivery O2 Flow Rate FiO2 06/14/20 16:30 35.8 80 20 168/81 (110) 96 Room Air Capillary Refill : General Appearance: No Apparent Distress, WD/WN, Chronically ill HEENT: PERRL/EOMI, Normal ENT Inspection, Pharynx Normal Neck: Full Range of Motion, Non Tender, Supple Respiratory: Chest Non Tender, Lungs Clear, Normal Breath Sounds, No Accessory Muscle Use, No Respiratory Distress Cardiovascular: Regular Rate, Rhythm, No Murmur, Normal Peripheral Pulses Gastrointestinal: Normal Bowel Sounds, No Organomegaly, No Pulsatile Mass, Non Tender, Soft Back: Normal Inspection, No CVA Tenderness, No Vertebral Tenderness Extremity: Normal Capillary Refill, Normal Inspection, Normal Range of Motion, Non Tender, No Calf Tenderness, Pedal Edema Neurologic/Psychiatric: Alert, Oriented x3, Normal Mood/Affect, transfer knitter II-XII Norm as Tested, Abnormal Gait, Motor Weakness Skin: Normal Color, Warm/Dry Lymphatic: No Adenopathy Results/Procedures Lab Patient resulted labs reviewed. FIM Transfers Therapy Code Descriptions/Definitions Functional [place] Measure: 0=Not Assessed/NA 4=Minimal Assistance 1=Total Assistance 5=Supervision or Setup 2=Maximal Assistance 6=Modified [place] 3=Moderate Assistance 7=Complete IndependenceSCALE: Activities may be completed with or without assistive devices. 9-Colwigndpr-vklnlwn completes the activity by him/herself with no assistance from a helper. 5-Set-up or Clean-up Assistance-helper sets up or cleans up; patient completes activity. [place] assists only prior to or following the activity. 4-Supervision or Touching Assistance-helper provides verbal cues and/or touching/steadying and/or contact guard assistance as patient completes activity. Assistance may be provided throughout the activity or intermittently. 3-Partial/Moderate Assistance-helper does LESS THAN HALF the effort. [place] l ifts, holds or supports trunk or limbs, but provides less than half the effort. 2-Substantial/Maximal Assistance-helper does MORE THAN HALF the effort. [place] lifts or holds trunk or limbs and provides more than half the effort. 2-Lejsooezo-tfvfix does ALL the effort. Patient does none of the effort to complete the activity. Or, the assistance of 2 or more helpers is required for t he patient to complete the activity. If activity was not attempted, code reason: 7-Patient Refused. 9-Not Applicable-not attempted and the patient did not perform the activity before the current illness, exacerbation or injury. 10-Not Attempted due to Environmental Limitations-(lack of equipment, weather restraints, etc.). 88-Not Attempted due to Medical Conditions or Safety Concerns. Roll Left to Right (QC): 4 Sit to Lying (QC): 4 Sit to Stand (QC): 5 Chair/Mkl-do-Hecmw Xfer(QC): 5 Car Transfer (QC): 4 Gait Training Does the Patient Walk?: Yes Distance: 150' x2 Walk 10 feet (QC): 5 Walk 50 ft with 2 Turns(QC): 5 Walk 150 ft (QC): 5 Walking 10ft/uneven surface-QC: 4 Gait Persons Needed: 1 Gait Assistive Device: FWW Wheelchair Training Does the Pt Use a Wheelchair?: No Wheel 50 ft with 2 turns (QC): 9 Wheel 150 ft (QC): 9 Stair Training 1 Step (curb) (QC): 3 4 Steps (QC): 88 12 Steps (QC): 9 Balance Picking up an Object (QC): 88 ADL-Treatment Eating (QC): 5 Oral Hygiene (QC): 6 Shower/Bathe Self (QC): 3 (Mod assist to wash rear phoebe area and bilateral feet in shower.) Upper Body Dressing (QC): 5 Lower Body Dressing (QC): 3 On/Off Footwear (QC): 2 Toileting Hygiene (QC): 4 Toilet Transfer (QC): 4 Assessment/Plan Assessment and Plan Assess & Plan/Chief Complaint Assessment: Debility Hyponatremia holding HCTZ Severe weakness Dysphagia with gastric ulcers in the past on EGD and EGD revealed gastritis on EGD per Dr Astorga 06/14/20 HTN GERD Glaucoma Gastroparesis Edema legs Plan: Monitor closely Check labs Home meds 06/12/20: Monitor closely Hold HCTZ Monitor BP 06/13/20: Monitor BP Monitor for pain 06/14/20: Appreciate Dr Astorga for EGD Monitor closely (1) Debility (2) Generalized weakness Status: Acute (3) Hyponatremia Status: Acute (4) Electrolyte abnormality (5) Essential (primary) hypertension Status: Chronic MARKO ANDERS DO Jun 14, 2020 06:11
[2020-06-14] MEDS: ASPIRIN E.C. 81 MG (ECOTRIN) TAB PO SCH (07:14)
[2020-06-14] MEDS: CARVEDILOL 12.5 MG (COREG) TABLET PO SCH ×2 (07:14→20:32)
[2020-06-14] MEDS: lisINopril 20 MG (PRINIVIL) TABLET PO SCH (07:14)
[2020-06-14] MEDS: TIMOLOL MALEATE 0.5% 5 ML (TIMOPTIC) BTL OS SCH ×2 (07:15→20:25)
[2020-06-14] MEDS: polyethylene glycoL POWDER 17 GM (MIRALAX) PACK PO SCH ×2 (07:16→21:00)
[2020-06-14] MEDS: DOCUSATE SODIUM 100 MG (COLACE) CAP PO SCH ×2 (07:16→20:26)
[2020-06-14] MEDS: SENNA W/DOCUSATE (SENOKOT S) TABLET PO SCH ×2 (07:17→21:00)
--- NOTE | 2020-06-14 09:00 | Occupational Ther Daily Note ---
OT Current Status-Daily Note Subjective Pt alert, sitting in recliner. Pt agrees to therapy. No c/o pain. Pt to have EGD today. Mental Status/Objective Patient Orientation: Person, Place, Time, Situation Attachments: IV (midline) ADL-Treatment Pt agrees to shower. Pt able to transfer on/off toilet using FWW, independently. Completed clothing manipulation using FWW and grabbars then cleansing self sitting on toilet independently. SBA for safety to transfer in/out of shower. SBA to complete shower sitting on shower bench using hand held shower and grabbars. Pt declines to use LH sponge. Assist to thread socks and briefs over feet, pt states that family completes this at home. Pt stands at sink to complete oral care and grooming. Pt requires multiple recovery breaks through session due to SOA. Therapy Code Descriptions/Definitions Functional [place] Measure: 0=Not Assessed/NA 4=Minimal Assistance 1=Total Assistance 5=Supervision or Setup 2=Maximal Assistance 6=Modified [place] 3=Moderate Assistance 7=Complete IndependenceSCALE: Activities may be completed with or without assistive devices. 3-Jitomyepvu-plxkouw completes the activity by him/herself with no assistance from a helper. 5-Set-up or Clean-up Assistance-helper sets up or cleans up; patient completes activity. [place] assists only prior to or following the activity. 4-Supervision or Touching Assistance-helper provides verbal cues and/or touching/steadying and/or contact guard assistance as patient completes activity. Assistance may be provided throughout the activity or intermittently. 3-Partial/Moderate Assistance-helper does LESS THAN HALF the effort. [place] lifts, holds or supports trunk or limbs, but provides less than half the effort. 2-Substantial/Maximal Assistance-helper does MORE THAN HALF the effort. [place] l ifts or holds trunk or limbs and provides more than half the effort. 8-Etwfuxvow-bszexs does ALL the effort. Patient does none of the effort to complete the activity. Or, the assistance of 2 or more helpers is required for the patient to complete the activity. If activity was not attempted, code reason: 7-Patient Refused. 9-Not Applicable-not attempted and the patient did not perform the activity before the current illness, exacerbation or injury. 10-Not Attempted due to Environmental Limitations-(lack of equipment, weather restraints, etc.). 88-Not Attempted due to Medical Conditions or Safety Concerns. Oral Hygiene (QC): 6 Shower/Bathe Self (QC): 4 Lower Body Dressing (QC): 3 On/Off Footwear: 2 Toileting Hygiene (QC): 6 Toilet Transfer (QC): 6 Other Treatment Co-treat with PT ([id number]), skilled instruction and modifications requires 2 clinicians due to increased SOA and decreased endurance. PT focusing on ambulation, B LE strengthening and home safety while OT focusing on B UE strengthening, ADLs and home safety. Pt able to complete multiple UE/LE strengthening exercises against gravity 1 set 12 reps with each. Education on home safety and pt reports the amount of assistance family completes. After session, pt left in care of PT. All needs met. Education OT Patient Education: Safety issues Teaching Recipient: Patient Teaching Methods: Discussion Response to Teaching: Verbalize Understanding OT Short Term Goals Short Term Goals Time Frame: Jun 18, 2020 Eatin Oral hygiene: 5 Toileting hygiene: 4 Shower/bathe self: 4 Upper body dressin Lower body dressin (With AE) Putting on/taking off footwear: 4 (With AE) OT Sales Producer Goals Sales Producer Goals Time Frame: Jul 02, 2020 Eating (QC): 6 Oral Hygiene (QC): 6 Toileting Hygiene (QC): 6 Shower/Bathe Self (QC): 5 Upper Body Dressing (QC): 6 Lower Body Dressing (QC): 5 On/Off Footwear (QC): 5 (With AE) Additional Goals: 1-Demonstrate ADL Tasks, 2-Verbalize Understanding, 3- ImproveStrength/Jasper 1=Demonstrate adherence to instructed precautions during ADL tasks. 2=Patient will verbalize/demonstrate understanding of assistive devices/modifications for ADL. 3=Patient will improve strength/tolerance for activity to enable patient to perform ADL's. OT Education/Plan Problem List/Assessment Assessment: Decreased Activ Tolerance, Decreased UE Strength, Impaired Self- Care Skills, Restricted Funct UE ROM Discharge Recommendations Plan/Recommendations: Continue POC Treatment Plan/Plan of Care Patient would benefit from OT for education, treatment and training to promote independence in ADL's, mobility, safety and/or upper extremity function for ADL's. Plan of Care: ADL Retraining, Functional Mobility, UE Funct Exercise/Act Treatment Duration: Jul 02, 2020 Frequency: At least 5 of 7 days/Wk (IRF) Estimated Hrs Per Day: 1.5 hours per day Agreement: Yes Rehab Potential: Fair Time/GCodes Start Time: 08:15 Stop Time: 09:45 Total Time Billed (hr/min): 90 Billed Treatment Time 1 visit-ADL 3 (45 min) EX 3 (45 min) JOELLE JI Jun 14, 2020 09:00
--- NOTE | 2020-06-14 10:21 | Physical Therapy Daily Note ---
PT Daily Note-Current Subjective Pt, agrees to PT OT co Rx for initial part of Rx. Pt. shares that she is NPO and thirsty as well as nervous b/c she is having EGD this morning. Pt is nervous about what the findings might be. No c/o pain but has some SOB with activity Pain Location: No Pain Reported Mental Status Patient Orientation: Normal For Age Transfers SCALE: Activities may be completed with or without assistive devices. 0-Azvdjuaqqu-genbkho completes the activity by him/herself with no assistance from a helper. 5-Set-up or Clean-up Assistance-helper sets up or cleans up; patient completes activity. [place] assists only prior to or following the activity. 4-Supervision or Touching Assistance-helper provides verbal cues and/or touching/steadying and/or contact guard assistance as patient completes activity. Assistance may be provided throughout the activity or intermittently. 3-Partial/Moderate Assistance-helper does LESS THAN HALF the effort. [place] lifts, holds or supports trunk or limbs, but provides less than half the effort. 2-Substantial/Maximal Assistance-helper does MORE THAN HALF the effort. [place] lifts or holds trunk or limbs and provides more than half the effort. 9-Jnktznzfe-fxpepz does ALL the effort. Patient does none of the effort to complete the activity. Or, the assistance of 2 or more helpers is required for the patient to complete the activity. If activity was not attempted, code reason: 7-Patient Refused. 9-Not Applicable-not attempted and the patient did not perform the activity before the current illness, exacerbation or injury. 10-Not Attempted due to Environmental Limitations-(lack of equipment, weather restraints, etc.). 88-Not Attempted due to Medical Conditions or Safety Concerns. Sit to Stand (QC): 5 Toilet Transfer (QC): 5 Weight Bearing Right Lower Extremity: Right Full Weight Bearing Left Lower Extremity: Left Full Weight Bearing Gait Training Does the Patient Walk?: Yes Walk 10 feet (QC): 5 Walk 50 ft with 2 Turns(QC): 5 Walk 150 ft (QC): 5 Gait Persons Needed: 1 Gait Assistive Device: FWW heavy wt bearing on FWW, decreased step length, kyphotic, needs standing rest break x 1, no sara LOB Exercises Seated Therapy Exercises: Biceps, Ankle pumps, Sit to stand, Shoulder Flex, Long arc quads, Hip flexion, Kicking activity, Hip abd/add, Tricep Seated Reps: 15 Standing: Hamstring curls, Heel/toe raises, Marching, Side steps Standing Reps: 15 seated exercise with "kick dice" for LEs Treatments pt. toileted and washed hands, face and combed hair in bthrm SBA, in recliner after Rx, family member present , pt with call yang and blanket. Assessment Current Status: Good Progress pt. NPO and nervous had difficulty keeping mind on tasks today PT Short Term Goals Short Term Goals Time Frame: Jun 18, 2020 Roll Left & Right: 6 Sit to lyin Lying to sitting on side of be: 5 Sit to stand: 5 Chair/kgt-vz-ekprn transfer: 5 Toilet transfer: 5 Car transfer: 5 Walk 10 feet: 5 Walk 50 feet with two turns: 5 Walk 150 feet: 5 Walking 10ft on uneven surface: 5 1 step (curb): 4 4 steps: 4 12 steps: 9 Picking up objects: 4 PT Process Development Associate Goals Custodial Goals PT Process Development Associate Goals Time Frame: Jul 02, 2020 Roll Left & Right (QC): 6 Sit to Lying (QC): 6 Lying-Sitting on Side/Bed(QC): 6 Sit to Stand (QC): 6 Chair/Hue-ta-Fqhen Xfer(QC): 6 Toilet Transfer (QC): 6 Car Transfer (QC): 6 Does the Patient Walk: Yes Walk 10 feet (QC): 6 Walk 50ft with 2 Turns (QC): 6 Walk 150 ft (QC): 6 Walking 10ft on Uneven Surface: 6 1 Step (curb) (QC): 6 4 Steps (QC): 5 12 Steps (QC): 9 Picking up an Object (QC): 5 Does the Pt use WC or Scooter?: No Wheel 50 feet with 2 turns (QC: 9 Type: N/A Wheel 150 feet: 9 Type: N/A PT Plan Treatment/Plan Treatment Plan: Continue Plan of Care Treatment Plan: Bed Mobility, Concurrent Therapy, Education, Functional Activity Jasper, Functional Strength, Group Therapy, Gait, Safety, Therapeutic Exercise, Transfers Treatment Duration: Jul 02, 2020 Frequency: At least 5 of 7 days/Wk (IRF) Estimated Hrs Per Day: 1.5 hours per day Patient and/or Family Agrees t: Yes Safety Risks/Education Patient Education: Gait Training, Transfer Techniques, Correct Positioning, Disease Process, Safety Issues Teaching Recipient: Patient Teaching Methods: Demonstration, Discussion Response to Teaching: Verbalize Understanding, Return Demonstration, Reinforcement Needed Time/GCodes Time In: 900 Time Out: 1030 Total Billed Treatment Time: 90 Total Billed Treatment 1,FA35m,EX25m,GT30m (45m PT OT co Rx) CEDRIC DODD FRAME FEEDER Jun 14, 2020 10:21
--- NOTE | 2020-06-14 13:00 | Anesthesia-General Post-Op ---
MAC Patient Condition Mental Status/LOC: Same as Preop Cardiovascular: Satisfactory Nausea/Vomiting: Absent Respiratory: Satisfactory Pain: Controlled Complications: Absent Post Op Complications Complications None Follow Up Care/Instructions Patient Instructions None needed. Anesthesiology Discharge Order Discharge Order Patient is doing well, no complaints, stable vital signs, no apparent adverse anesthesia problems. No complications reported per nursing. FELICIANO JOHN CRNA Jun 14, 2020 13:00
[2020-06-14 16:30] VITALS: BP 168/81
[2020-06-14] MEDS: PANTOPRAZOLE 40 MG (PROTONIX) TAB PO SCH (17:18)
--- NOTE | 2020-06-14 18:33 | Progress Note - Surgery ---
Subjective Time Seen by a Provider: 11:22 Subjective/Events-last exam Pt seen and examined, states no changes and is ready for EGD. Review of Systems General: No Chills; Fatigue, Malaise Pulmonary: No Dyspnea, No Cough Cardiovascular: No: Chest Pain, Palpitations Gastrointestinal: Abdominal Pain, Other ("trouble swallowing"); No: Nausea, Vomiting Objective Exam Vital Signs Date Time Temp Pulse Resp B/P (MAP) Pulse Ox O2 Delivery O2 Flow Rate FiO2 06/14/20 16:30 35.8 80 20 168/81 (110) 96 Room Air 06/14/20 08:14 Room Air 06/14/20 06:00 36.8 74 20 156/78 (104) 94 Room Air 06/13/20 20:00 97 Room Air I & O 06/14/20 07:00 Intake Total 1250 ml Balance 1250 ml Capillary Refill : General Appearance: No Apparent Distress, Chronically ill HEENT: PERRL/EOMI, Moist Mucous Membranes, Other (poor dentition) Respiratory: Chest Non Tender, Lungs Clear, Normal Breath Sounds, No Accessory Muscle Use, No Respiratory Distress Cardiovascular: Regular Rate, Rhythm, No Murmur Peripheral Pulses: 2+ Radial Pulses (R), 2+ Radial Pulses (L) Gastrointestinal: non tender, soft Extremity: No Calf Tenderness, Pedal Edema Neurologic/Psychiatric: Alert, Oriented x3, Normal Mood/Affect, Abnormal Gait, Motor Weakness Results Lab Laboratory Tests 06/13/20 21:10: Coronavirus (COVID-19)(PCR) Negative Assessment/Plan Assessment/Plan Assessment/Plan Hx of Anemia Abd pain Gastritis Dysphagia Plan EGD today, all questions answered to pt's satisfaction. KALEY JEWELL DO Jun 14, 2020 18:33
[2020-06-14] MEDS: MELATONIN 3 MG TABLET PO PRN (20:26)
[2020-06-14] MEDS: MIRTAZAPINE 15 MG (REMERON) TAB PO SCH (20:26)
[2020-06-15 05:46] VITALS: BP 128/59
[2020-06-15] MEDS: METOCLOPRAMIDE 5 MG (REGLAN) TAB PO SCH ×2 (06:25→17:08)
--- NOTE | 2020-06-15 08:39 | PM&R Progress Note ---
Subjective HPI/CC On Admission Date Seen by Provider: Jun 15, 2020 Time Seen by Provider: 14:15 Subjective/Events-last exam 06/14/20: Patient feels better EGD yesterday No complaints Son visited today 06/14/20: Doing well EGD reviewed Feels better BM yesterday 06/13/20: Patient doing well No issues Had her COVID vaccine 2nd dose 05/11/20 Coughed on Lactulose so initiated IS No pain reported 06/12/20: Pt doing really well today Sodium level up at 133 Ordered Reglan BID the way she takes it Podiatry consult initiated Bowels moved yesterday Review of Systems General: Fatigue, Malaise Objective Exam Vital Signs Vital Signs Date Time Temp Pulse Resp B/P (MAP) Pulse Ox O2 Delivery O2 Flow Rate FiO2 06/15/20 16:15 36.4 67 16 94/54 (67) 94 06/15/20 09:48 Room Air Capillary Refill : General Appearance: No Apparent Distress, WD/WN, Chronically ill HEENT: PERRL/EOMI, Moist Mucous Membranes, Other (poor dentition) Respiratory: Chest Non Tender, Lungs Clear, Normal Breath Sounds, No Accessory Muscle Use, No Respiratory Distress Cardiovascular: Regular Rate, Rhythm, No Edema, No Gallop, No JVD, No Murmur Gastrointestinal: Normal Bowel Sounds, No Organomegaly, No Pulsatile Mass, Non Tender, Soft Back: Normal Inspection, No CVA Tenderness, No Vertebral Tenderness Extremity: No Calf Tenderness, Pedal Edema Neurologic/Psychiatric: Alert, Oriented x3, Normal Mood/Affect, Abnormal Gait, Motor Weakness Skin: Normal Color, Warm/Dry Results/Procedures Lab Patient resulted labs reviewed. FIM Transfers Therapy Code Descriptions/Definitions Functional [place] Measure: 0=Not Assessed/NA 4=Minimal Assistance 1=Total Assistance 5=Supervision or Setup 2=Maximal Assistance 6=Modified [place] 3=Moderate Assistance 7=Complete IndependenceSCALE: Activities may be completed with or without assistive devices. 2-Odkwramfct-svpjazg completes the activity by him/herself with no assistance from a helper. 5-Set-up or Clean-up Assistance-helper sets up or cleans up; patient completes activity. [place] assists only prior to or following the activity. 4-Supervision or Touching Assistance-helper provides verbal cues and/or touching/steadying and/or contact guard assistance as patient completes activity. Assistance may be provided throughout the activity or intermittently. 3-Partial/Moderate Assistance-helper does LESS THAN HALF the effort. [place] lifts, holds or supports trunk or limbs, but provides less than half the effort. 2-Substantial/Maximal Assistance-helper does MORE THAN HALF the effort. [place] lifts or holds trunk or limbs and provides more than half the effort. 3-Iuauutoif-imdnbv does ALL the effort. Patient does none of the effort to complete the activity. Or, the assistance of 2 or more helpers is required for the patient to complete the activity. If activity was not attempted, code reason: 7-Patient Refused. 9-Not Applicable-not attempted and the patient did not perform the activity before the current illness, exacerbation or injury. 10-Not Attempted due to Environmental Limitations-(lack of equipment, weather restraints, etc.). 88-Not Attempted due to Medical Conditions or Safety Concerns. Roll Left to Right (QC): 4 Sit to Lying (QC): 4 Sit to Stand (QC): 5 Chair/Oxy-vp-Gsabh Xfer(QC): 5 Car Transfer (QC): 4 Gait Training Does the Patient Walk?: Yes Distance: 150' x2 Walk 10 feet (QC): 5 Walk 50 ft with 2 Turns(QC): 5 Walk 150 ft (QC): 5 Walking 10ft/uneven surface-QC: 4 Gait Persons Needed: 1 Gait Assistive Device: FWW Wheelchair Training Does the Pt Use a Wheelchair?: No Wheel 50 ft with 2 turns (QC): 9 Wheel 150 ft (QC): 9 Stair Training 1 Step (curb) (QC): 3 4 Steps (QC): 88 12 Steps (QC): 9 Balance Picking up an Object (QC): 88 ADL-Treatment Eating (QC): 5 Oral Hygiene (QC): 6 Shower/Bathe Self (QC): 4 Upper Body Dressing (QC): 5 Lower Body Dressing (QC): 3 On/Off Footwear (QC): 2 Toileting Hygiene (QC): 6 Toilet Transfer (QC): 6 Assessment/Plan Assessment and Plan Assess & Plan/Chief Complaint Assessment: Debility Hyponatremia holding HCTZ Severe weakness Dysphagia with gastric ulcers in the past on EGD and EGD revealed gastritis on EGD per Dr Astorga 06/14/20 HTN GERD Glaucoma Gastroparesis Edema legs Plan: Monitor closely Check labs Home meds 06/12/20: Monitor closely Hold HCTZ Monitor BP 06/13/20: Monitor BP Monitor for pain 06/14/20: Appreciate Dr Astorga for EGD Monitor closely 06/15/20: Monitor dysphagia Monitor for falls (1) Debility (2) Generalized weakness Status: Acute (3) Hyponatremia Status: Acute (4) Electrolyte abnormality (5) Essential (primary) hypertension Status: Chronic MARKO ANDERS DO Jun 15, 2020 08:39
[2020-06-15 09:05] VITALS: BP 110/63
[2020-06-15] MEDS: lisINopril 20 MG (PRINIVIL) TABLET PO SCH (09:06)
[2020-06-15] MEDS: SENNA W/DOCUSATE (SENOKOT S) TABLET PO SCH ×2 (09:06→20:08)
[2020-06-15] MEDS: DOCUSATE SODIUM 100 MG (COLACE) CAP PO SCH ×2 (09:06→20:08)
[2020-06-15] MEDS: ASPIRIN E.C. 81 MG (ECOTRIN) TAB PO SCH (09:06)
[2020-06-15] MEDS: TIMOLOL MALEATE 0.5% 5 ML (TIMOPTIC) BTL OS SCH ×2 (09:06→20:06)
[2020-06-15] MEDS: CARVEDILOL 12.5 MG (COREG) TABLET PO SCH ×2 (09:07→20:07)
[2020-06-15] MEDS: polyethylene glycoL POWDER 17 GM (MIRALAX) PACK PO SCH ×2 (09:51→20:09)
--- NOTE | 2020-06-15 10:56 | Physical Therapy Daily Note ---
PT Daily Note-Current Subjective Pt sitting in recliner sleeping upon arrival. Pt agrees to PT tx. Pain Numeric Pain Scale: 0-No Pain Location: No Pain Reported Mental Status Patient Orientation: Normal For Age Transfers SCALE: Activities may be completed with or without assistive devices. 1-Lzvjuswzfu-grjafrp completes the activity by him/herself with no assistance from a helper. 5-Set-up or Clean-up Assistance-helper sets up or cleans up; patient completes activity. [place] assists only prior to or following the activity. 4-Supervision or Touching Assistance-helper provides verbal cues and/or touching/steadying and/or contact guard assistance as patient completes activity. Assistance may be provided throughout the activity or intermittently. 3-Partial/Moderate Assistance-helper does LESS THAN HALF the effort. [place] lifts, holds or supports trunk or limbs, but provides less than half the effort. 2-Substantial/Maximal Assistance-helper does MORE THAN HALF the effort. [place] lifts or holds trunk or limbs and provides more than half the effort. 1-Kvussitwt-mktdkv does ALL the effort. Patient does none of the effort to complete the activity. Or, the assistance of 2 or more helpers is required for the patient to complete the activity. If activity was not attempted, code reason: 7-Patient Refused. 9-Not Applicable-not attempted and the patient did not perform the activity before the current illness, exacerbation or injury. 10-Not Attempted due to Environmental Limitations-(lack of equipment, weather restraints, etc.). 88-Not Attempted due to Medical Conditions or Safety Concerns. Sit to Stand (QC): 4 Weight Bearing Right Lower Extremity: Right Full Weight Bearing Left Lower Extremity: Left Full Weight Bearing Gait Training Does the Patient Walk?: Yes Distance: 75', 75', 150' Walk 10 feet (QC): 4 Walk 50 ft with 2 Turns(QC): 4 Walk 150 ft (QC): 4 Gait Persons Needed: 1 Gait Assistive Device: FWW Pt requires 2 seated rest breaks this date during ambulation d/t SOB Treatments Pt completes all transfers using FWW w/ CGA. Pt ambulates throughout 2nd floor requiring 2 seated rest breaks. Pt returns to recliner in room, has call light and bedside table w/in reach and all needs met at end of tx. Assessment Current Status: Fair Progress Poor endurance during ambulation d/t SOB PT Short Term Goals Short Term Goals Time Frame: Jun 18, 2020 Roll Left & Right: 6 Sit to lyin Lying to sitting on side of be: 5 Sit to stand: 5 Chair/tpm-pa-pkybt transfer: 5 Toilet transfer: 5 Car transfer: 5 Walk 10 feet: 5 Walk 50 feet with two turns: 5 Walk 150 feet: 5 Walking 10ft on uneven surface: 5 1 step (curb): 4 4 steps: 4 12 steps: 9 Picking up objects: 4 PT Debt Counselor Goals Debt Counselor Goals PT Longterm Goals Time Frame: Jul 02, 2020 Roll Left & Right (QC): 6 Sit to Lying (QC): 6 Lying-Sitting on Side/Bed(QC): 6 Sit to Stand (QC): 6 Chair/Oot-hz-Bzbef Xfer(QC): 6 Toilet Transfer (QC): 6 Car Transfer (QC): 6 Does the Patient Walk: Yes Walk 10 feet (QC): 6 Walk 50ft with 2 Turns (QC): 6 Walk 150 ft (QC): 6 Walking 10ft on Uneven Surface: 6 1 Step (curb) (QC): 6 4 Steps (QC): 5 12 Steps (QC): 9 Picking up an Object (QC): 5 Does the Pt use WC or Scooter?: No Wheel 50 feet with 2 turns (QC: 9 Type: N/A Wheel 150 feet: 9 Type: N/A PT Plan Problem List Problem List: Activity Tolerance, Functional Strength, Safety, Balance, Gait, Transfer, Bed Mobility, ROM Treatment/Plan Treatment Plan: Continue Plan of Care Treatment Plan: Bed Mobility, Concurrent Therapy, Education, Functional Ac tivity [place], Functional Strength, Group Therapy, Gait, Safety, Therapeutic Exercise, Transfers Treatment Duration: Jul 02, 2020 Frequency: At least 5 of 7 days/Wk (IRF) Estimated Hrs Per Day: 1.5 hours per day Patient and/or Family Agrees t: Yes Safety Risks/Education Patient Education: Gait Training, Safety Issues Teaching Recipient: Patient Teaching Methods: Discussion Response to Teaching: Verbalize Understanding Time/GCodes Time In: 09 Time Out: 09 Total Billed Treatment Time: 17 Total Billed Treatment 1, GT x1 (17m) SRUTHI PETERS EMAIL MARKETING PROCESSOR Jun 15, 2020 10:56
[2020-06-15 16:15] VITALS: BP 94/54
[2020-06-15] MEDS: PANTOPRAZOLE 40 MG (PROTONIX) TAB PO SCH (18:50)
[2020-06-15] MEDS: MIRTAZAPINE 15 MG (REMERON) TAB PO SCH (20:07)
[2020-06-15] MEDS: MELATONIN 3 MG TABLET PO PRN (20:08)
[2020-06-15 20:17] VITALS: BP 138/72
[2020-06-16 05:08] VITALS: BP 143/65
[2020-06-16] MEDS: METOCLOPRAMIDE 5 MG (REGLAN) TAB PO SCH ×2 (06:12→16:56)
[2020-06-16 10:05] VITALS: BP 162/72
[2020-06-16] MEDS: SENNA W/DOCUSATE (SENOKOT S) TABLET PO SCH ×2 (10:06→19:33)
[2020-06-16] MEDS: polyethylene glycoL POWDER 17 GM (MIRALAX) PACK PO SCH ×2 (10:06→19:33)
[2020-06-16] MEDS: ASPIRIN E.C. 81 MG (ECOTRIN) TAB PO SCH (10:06)
[2020-06-16] MEDS: lisINopril 20 MG (PRINIVIL) TABLET PO SCH (10:06)
[2020-06-16] MEDS: DOCUSATE SODIUM 100 MG (COLACE) CAP PO SCH ×2 (10:06→19:33)
[2020-06-16] MEDS: CARVEDILOL 12.5 MG (COREG) TABLET PO SCH ×2 (10:06→20:18)
[2020-06-16] MEDS: TIMOLOL MALEATE 0.5% 5 ML (TIMOPTIC) BTL OS SCH ×2 (10:07→20:17)
[2020-06-16] MEDS ORDERED: BISACODYL 10 MG SUPP (DULCOLAX) PR PRN (13:00)
[2020-06-16] MEDS ORDERED: BISACODYL 10 MG SUPP (DULCOLAX) PR ONE (13:00)
[2020-06-16 17:21] VITALS: BP 132/62
[2020-06-16] MEDS: PANTOPRAZOLE 40 MG (PROTONIX) TAB PO SCH (18:40)
[2020-06-16] MEDS: MIRTAZAPINE 15 MG (REMERON) TAB PO SCH (20:18)
[2020-06-16] MEDS: MELATONIN 3 MG TABLET PO PRN (20:18)
--- NOTE | 2020-06-16 20:42 | PM&R Progress Note ---
Subjective HPI/CC On Admission Date Seen by Provider: Jun 16, 2020 Time Seen by Provider: 13:30 Subjective/Events-last exam 06/16/20: Patient doing well today Noted constipation EGD discussed BP varies and it makes her nervous 06/15/20: Patient feels better EGD yesterday No complaints Son visited today 06/14/20: Doing well EGD reviewed Feels better BM yesterday 06/13/20: Patient doing well No issues Had her COVID vaccine 2nd dose 05/11/20 Coughed on Lactulose so initiated IS No pain reported 06/12/20: Pt doing really well today Sodium level up at 133 Ordered Reglan BID the way she takes it Podiatry consult initiated Bowels moved yesterday Review of Systems General: Fatigue, Malaise Neurological: Weakness Objective Exam Vital Signs Vital Signs Date Time Temp Pulse Resp B/P (MAP) Pulse Ox O2 Delivery O2 Flow Rate FiO2 06/16/20 17:21 36.2 66 20 132/62 (85) 95 Room Air Capillary Refill : General Appearance: No Apparent Distress, WD/WN, Chronically ill HEENT: PERRL/EOMI, Moist Mucous Membranes, Other (poor dentition) Respiratory: Chest Non Tender, Lungs Clear, Normal Breath Sounds, No Accessory Muscle Use, No Respiratory Distress Cardiovascular: Regular Rate, Rhythm, No Edema, No Gallop, No JVD, No Murmur Gastrointestinal: Normal Bowel Sounds, No Organomegaly, No Pulsatile Mass, Non Tender, Soft Back: Normal Inspection, No CVA Tenderness, No Vertebral Tenderness Extremity: No Calf Tenderness, Pedal Edema Neurologic/Psychiatric: Alert, Oriented x3, Normal Mood/Affect, Abnormal Gait, Motor Weakness Skin: Normal Color, Warm/Dry Results/Procedures Lab Patient resulted labs reviewed. FIM Transfers Therapy Code Descriptions/Definitions Functional [place] Measure: 0=Not Assessed/NA 4=Minimal Assistance 1=Total Assistance 5=Supervision or Setup 2=Maximal Assistance 6=Modified [place] 3=Moderate Assistance 7=Complete IndependenceSCALE: Activities may be completed with or without assistive devices. 8-Qovevaaejm-yemtfpm completes the activity by him/herself with no assistance from a helper. 5-Set-up or Clean-up Assistance-helper sets up or cleans up; patient completes activity. [place] assists only prior to or following the activity. 4-Supervision or Touching Assistance-helper provides verbal cues and/or t ouching/steadying and/or contact guard assistance as patient completes activity. Assistance may be provided throughout the activity or intermittently. 3-Partial/Moderate Assistance-helper does LESS THAN HALF the effort. [place] lifts, holds or supports trunk or limbs, but provides less than half the effort. 2-Substantial/Maximal Assistance-helper does MORE THAN HALF the effort. [place] lifts or holds trunk or limbs and provides more than half the effort. 8-Inoltwvva-vkpynp does ALL the effort. Patient does none of the effort to complete the activity. Or, the assistance of 2 or more helpers is required for the patient to complete the activity. If activity was not attempted, code reason: 7-Patient Refused. 9-Not Applicable-not attempted and the patient did not perform the activity before the current illness, exacerbation or injury. 10-Not Attempted due to Environmental Limitations-(lack of equipment, weather restraints, etc.). 88-Not Attempted due to Medical Conditions or Safety Concerns. Roll Left to Right (QC): 4 Sit to Lying (QC): 4 Sit to Stand (QC): 4 Chair/Odj-ss-Zgebc Xfer(QC): 5 Car Transfer (QC): 4 Gait Training Does the Patient Walk?: Yes Distance: 75', 75', 150' Walk 10 feet (QC): 4 Walk 50 ft with 2 Turns(QC): 4 Walk 150 ft (QC): 4 Walking 10ft/uneven surface-QC: 4 Gait Persons Needed: 1 Gait Assistive Device: FWW Wheelchair Training Does the Pt Use a Wheelchair?: No Wheel 50 ft with 2 turns (QC): 9 Wheel 150 ft (QC): 9 Stair Training 1 Step (curb) (QC): 3 4 Steps (QC): 88 12 Steps (QC): 9 Balance Picking up an Object (QC): 88 ADL-Treatment Eating (QC): 5 Oral Hygiene (QC): 6 Shower/Bathe Self (QC): 4 Upper Body Dressing (QC): 5 Lower Body Dressing (QC): 3 On/Off Footwear (QC): 2 Toileting Hygiene (QC): 6 Toilet Transfer (QC): 6 Assessment/Plan Assessment and Plan Assess & Plan/Chief Complaint Assessment: Debility Hyponatremia holding HCTZ Severe weakness Dysphagia with gastric ulcers in the past on EGD and EGD revealed gastritis on EGD per Dr Astorga 06/14/20 HTN GERD Glaucoma Gastroparesis Edema legs Plan: Monitor closely Check labs Home meds 06/12/20: Monitor closely Hold HCTZ Monitor BP 06/13/20: Monitor BP Monitor for pain 06/14/20: Appreciate Dr Astorga for EGD Monitor closely 06/15/20: Monitor dysphagia Monitor for falls 06/16/20: Monitor dysphagia BP ok Supp if needed (1) Debility (2) Generalized weakness Status: Acute (3) Hyponatremia Status: Acute (4) Electrolyte abnormality (5) Essential (primary) hypertension Status: Chronic MARKO ANDERS DO Jun 16, 2020 20:42
[2020-06-17 05:26] VITALS: BP 166/72
[2020-06-17] MEDS: METOCLOPRAMIDE 5 MG (REGLAN) TAB PO SCH ×2 (06:15→16:53)
[2020-06-17 06:22] LABS: BASOPHILS % (AUTO) 1 % (0-10); EOSINOPHILS # (AUTO) 0.5 10^3/uL (0.0-0.3); EOSINOPHILS % (AUTO) 7 % (0-10); HEMATOCRIT 31 % (35-52); HEMOGLOBIN 10.7 g/dL (11.5-16.0); LYMPHOCYTES # (AUTO) 1.3 10^3/uL (1.0-4.0); LYMPHOCYTES % (AUTO) 17 % (12-44); MEAN CORPUSCULAR HEMOGLOBIN 31 pg (25-34); MEAN CORPUSCULAR HGB CONC 35 g/dL (32-36); MEAN CORPUSCULAR VOLUME 89 fL (80-99); MEAN PLATELET VOLUME 9.6 fL (9.0-12.2); MONOCYTES # (AUTO) 0.7 10^3/uL (0.0-1.0); MONOCYTES % (AUTO) 10 % (0-12); NEUTROPHILS # (AUTO) 4.7 10^3/uL (1.8-7.8); NEUTROPHILS % (AUTO) 65 % (42-75); PLATELET COUNT 195 10^3/uL (130-400); WHITE BLOOD COUNT 7.2 10^3/uL (4.3-11.0)
[2020-06-17 06:32] LABS: ALBUMIN 2.9 GM/DL (3.2-4.5); CHLORIDE 99 MMOL/L (98-107); POTASSIUM 3.6 MMOL/L (3.6-5.0); SODIUM 132 MMOL/L (135-145)
[2020-06-17 06:33] LABS: CALCIUM 7.8 MG/DL (8.5-10.1)
[2020-06-17 06:34] LABS: GLUCOSE 98 MG/DL (70-105); TOTAL PROTEIN 5.4 GM/DL (6.4-8.2)
[2020-06-17 06:35] LABS: CARBON DIOXIDE 26 MMOL/L (21-32)
[2020-06-17 06:36] LABS: BILIRUBIN,TOTAL 0.6 MG/DL (0.1-1.0)
[2020-06-17 06:38] LABS: ALKALINE PHOSPHATASE 62 U/L (40-136); CREATININE SERUM 0.75 MG/DL (0.60-1.30); GFR ESTIMATED > 60
[2020-06-17 06:39] LABS: BUN/CREATININE RATIO 13
[2020-06-17 06:41] LABS: ALANINE AMINOTRANSFERASE 8 U/L (0-55)
[2020-06-17] MEDS: CARVEDILOL 12.5 MG (COREG) TABLET PO SCH ×2 (07:54→20:56)
[2020-06-17] MEDS: ASPIRIN E.C. 81 MG (ECOTRIN) TAB PO SCH (07:54)
[2020-06-17] MEDS: lisINopril 20 MG (PRINIVIL) TABLET PO SCH (07:56)
[2020-06-17] MEDS: DOCUSATE SODIUM 100 MG (COLACE) CAP PO SCH ×2 (07:57→20:59)
[2020-06-17] MEDS: TIMOLOL MALEATE 0.5% 5 ML (TIMOPTIC) BTL OS SCH ×2 (07:57→20:54)
[2020-06-17] MEDS: polyethylene glycoL POWDER 17 GM (MIRALAX) PACK PO SCH ×2 (07:58→20:59)
[2020-06-17] MEDS: SENNA W/DOCUSATE (SENOKOT S) TABLET PO SCH ×2 (07:58→21:00)
[2020-06-17 07:59] VITALS: BP 144/65
--- NOTE | 2020-06-17 08:39 | PM&R Progress Note ---
Subjective HPI/CC On Admission Date Seen by Provider: Jun 17, 2020 Time Seen by Provider: 10:30 Subjective/Events-last exam 06/17/20: Pt doing much better Less dysphasia Sodium level of 132 Loose stools continue Overall much better 06/16/20: Patient doing well today Noted constipation EGD discussed BP varies and it makes her nervous 06/15/20: Patient feels better EGD yesterday No complaints Son visited today 06/14/20: Doing well EGD reviewed Feels better BM yesterday 06/13/20: Patient doing well No issues Had her COVID vaccine 2nd dose 05/11/20 Coughed on Lactulose so initiated IS No pain reported 06/12/20: Pt doing really well today Sodium level up at 133 Ordered Reglan BID the way she takes it Podiatry consult initiated Bowels moved yesterday Review of Systems General: Fatigue, Malaise Neurological: Weakness Objective Exam Vital Signs Vital Signs Date Time Temp Pulse Resp B/P (MAP) Pulse Ox O2 Delivery O2 Flow Rate FiO2 06/17/20 21:00 93 Room Air 06/17/20 20:50 70 18 149/67 (94) 06/17/20 17:46 36.6 Capillary Refill : General Appearance: No Apparent Distress, WD/WN, Chronically ill HEENT: PERRL/EOMI, Normal ENT Inspection, Pharynx Normal, Moist Mucous Membranes, Other (poor dentition) Neck: Full Range of Motion, Normal Inspection, Non Tender, Supple Respiratory: Chest Non Tender, Lungs Clear, Normal Breath Sounds, No Accessory Muscle Use, No Respiratory Distress Cardiovascular: Regular Rate, Rhythm, No Edema, No Gallop, No JVD, No Murmur Gastrointestinal: Normal Bowel Sounds, No Organomegaly, No Pulsatile Mass, Non Tender, Soft Back: Normal Inspection, No CVA Tenderness, No Vertebral Tenderness Extremity: No Calf Tenderness, Pedal Edema Neurologic/Psychiatric: Alert, Oriented x3, Normal Mood/Affect, manager registration II-XII Norm as Tested, Abnormal Gait, Motor Weakness Skin: Normal Color, Warm/Dry Results/Procedures Lab Laboratory Tests 06/17/20 06:03 Patient resulted labs reviewed. FIM Transfers Therapy Code Descriptions/Definitions Functional [place] Measure: 0=Not Assessed/NA 4=Minimal Assistance 1=Total Assistance 5=Supervision or Setup 2=Maximal Assistance 6=Modified [place] 3=Moderate Assistance 7=Complete IndependenceSCALE: Activities may be completed with or without assistive devices. 8-Kyjvyitlwl-fdihdbl completes the activity by him/herself with no assistance from a helper. 5-Set-up or Clean-up Assistance-helper sets up or cleans up; patient completes activity. [place] assists only prior to or following the activity. 4-Supervision or Touching Assistance-helper provides verbal cues and/or touching/steadying and/or contact guard assistance as patient completes activity. Assistance may be provided throughout the activity or intermittently. 3-Partial/Moderate Assistance-helper does LESS THAN HALF the effort. [place] li fts, holds or supports trunk or limbs, but provides less than half the effort. 2-Substantial/Maximal Assistance-helper does MORE THAN HALF the effort. [place] lifts or holds trunk or limbs and provides more than half the effort. 7-Tnbqvnibd-llcoqj does ALL the effort. Patient does none of the effort to complete the activity. Or, the assistance of 2 or more helpers is required for the patient to complete the activity. If activity was not attempted, code reason: 7-Patient Refused. 9-Not Applicable-not attempted and the patient did not perform the activity before the current illness, exacerbation or injury. 10-Not Attempted due to Environmental Limitations-(lack of equipment, weather restraints, etc.). 88-Not Attempted due to Medical Conditions or Safety Concerns. Roll Left to Right (QC): 4 Sit to Lying (QC): 4 Sit to Stand (QC): 4 Chair/Khg-af-Xkqpo Xfer(QC): 5 Car Transfer (QC): 4 Gait Training Does the Patient Walk?: Yes Distance: 75', 75', 150' Walk 10 feet (QC): 4 Walk 50 ft with 2 Turns(QC): 4 Walk 150 ft (QC): 4 Walking 10ft/uneven surface-QC: 4 Gait Persons Needed: 1 Gait Assistive Device: FWW Wheelchair Training Does the Pt Use a Wheelchair?: No Wheel 50 ft with 2 turns (QC): 9 Wheel 150 ft (QC): 9 Stair Training 1 Step (curb) (QC): 3 4 Steps (QC): 88 12 Steps (QC): 9 Balance Picking up an Object (QC): 88 ADL-Treatment Eating (QC): 5 Oral Hygiene (QC): 6 Shower/Bathe Self (QC): 4 Upper Body Dressing (QC): 5 Lower Body Dressing (QC): 3 On/Off Footwear (QC): 2 Toileting Hygiene (QC): 6 Toilet Transfer (QC): 6 Assessment/Plan Assessment and Plan Assess & Plan/Chief Complaint Assessment: Debility Hyponatremia holding HCTZ Severe weakness Dysphagia with gastric ulcers in the past on EGD and EGD revealed gastritis on EGD per Dr Astorga 06/14/20 HTN GERD Glaucoma Gastroparesis Edema legs Plan: Monitor closely Check labs Home meds 06/12/20: Monitor closely Hold HCTZ Monitor BP 06/13/20: Monitor BP Monitor for pain 06/14/20: Appreciate Dr Astorga for EGD Monitor closely 06/15/20: Monitor dysphagia Monitor for falls 06/16/20: Monitor dysphagia BP ok Supp if needed 06/17/20: Monitor sodium level Monitor dysphagia (1) Debility (2) Generalized weakness Status: Acute (3) Hyponatremia Status: Acute (4) Electrolyte abnormality (5) Essential (primary) hypertension Status: Chronic MARKO ANDERS DO Jun 17, 2020 08:39
--- NOTE | 2020-06-17 10:18 | Physical Therapy Daily Note ---
PT Daily Note-Current Subjective Pt. agrees to Rx, states she feels so much better than she did last week and feels good about her EGD results. Pt. agrees to PT OT co Rx session Pain Location: No Pain Reported Mental Status Patient Orientation: Normal For Age Attachments: Other-See Comments (mask) Transfers SCALE: Activities may be completed with or without assistive devices. 1-Xnrcxpxhph-rpchkae completes the activity by him/herself with no assistance from a helper. 5-Set-up or Clean-up Assistance-helper sets up or cleans up; patient completes activity. [place] assists only prior to or following the activity. 4-Supervision or Touching Assistance-helper provides verbal cues and/or touching/steadying and/or contact guard assistance as patient completes activity. Assistance may be provided throughout the activity or intermittently. 3-Partial/Moderate Assistance-helper does LESS THAN HALF the effort. [place] lifts, holds or supports trunk or limbs, but provides less than half the effort. 2-Substantial/Maximal Assistance-helper does MORE THAN HALF the effort. [place] lifts or holds trunk or limbs and provides more than half the effort. 3-Yefiyqfxs-tzspzc does ALL the effort. Patient does none of the effort to c omplete the activity. Or, the assistance of 2 or more helpers is required for the patient to complete the activity. If activity was not attempted, code reason: 7-Patient Refused. 9-Not Applicable-not attempted and the patient did not perform the activity before the current illness, exacerbation or injury. 10-Not Attempted due to Environmental Limitations-(lack of equipment, weather restraints, etc.). 88-Not Attempted due to Medical Conditions or Safety Concerns. Sit to Stand (QC): 5 Toilet Transfer (QC): 5 Weight Bearing Right Lower Extremity: Right Full Weight Bearing Left Lower Extremity: Left Full Weight Bearing Gait Training Does the Patient Walk?: Yes Walk 10 feet (QC): 5 Walk 50 ft with 2 Turns(QC): 5 Walk 150 ft (QC): 5 Gait Persons Needed: 1 Gait Assistive Device: FWW slow, flexed at trunk, no LOB Exercises Seated Therapy Exercises: Ankle pumps, Sit to stand, Long arc quads, Hip flexion, Hip abd/add Seated Reps: 15 Treatments PT OT co Rx for balance activities standing reach for ball catch and throw, standing during dynamic work at cabinet/table, no LOB Assessment Current Status: Good Progress PT Short Term Goals Short Term Goals Time Frame: Jun 18, 2020 Roll Left & Right: 6 Sit to lyin Lying to sitting on side of be: 5 Sit to stand: 5 Chair/fbb-ms-bwfwt transfer: 5 Toilet transfer: 5 Car transfer: 5 Walk 10 feet: 5 Walk 50 feet with two turns: 5 Walk 150 feet: 5 Walking 10ft on uneven surface: 5 1 step (curb): 4 4 steps: 4 12 steps: 9 Picking up objects: 4 PT Senior Care Goals Senior Care Goals PT Senior Care Goals Time Frame: Jul 02, 2020 Roll Left & Right (QC): 6 Sit to Lying (QC): 6 Lying-Sitting on Side/Bed(QC): 6 Sit to Stand (QC): 6 Chair/Oun-yz-Wbuid Xfer(QC): 6 Toilet Transfer (QC): 6 Car Transfer (QC): 6 Does the Patient Walk: Yes Walk 10 feet (QC): 6 Walk 50ft with 2 Turns (QC): 6 Walk 150 ft (QC): 6 Walking 10ft on Uneven Surface: 6 1 Step (curb) (QC): 6 4 Steps (QC): 5 12 Steps (QC): 9 Picking up an Object (QC): 5 Does the Pt use WC or Scooter?: No Wheel 50 feet with 2 turns (QC: 9 Type: N/A Wheel 150 feet: 9 Type: N/A PT Plan Treatment/Plan Treatment Plan: Continue Plan of Care Treatment Plan: Bed Mobility, Concurrent Therapy, Education, Functional Activity [place], Functional Strength, Group Therapy, Gait, Safety, Therapeutic Exercise, Transfers Treatment Duration: Jul 02, 2020 Frequency: At least 5 of 7 days/Wk (IRF) Estimated Hrs Per Day: 1.5 hours per day Patient and/or Family Agrees t: Yes Safety Risks/Education Patient Education: Gait Training, Transfer Techniques, Correct Positioning, Disease Process, Safety Issues Teaching Recipient: Patient Teaching Methods: Demonstration, Discussion Response to Teaching: Verbalize Understanding, Return Demonstration, Reinforcement Needed Time/GCodes Time In: 900 Time Out: 1000 Total Billed Treatment Time: 60 Total Billed Treatment 1,GT20m,EX15m,FA25m (PT OT co Rx 60 m) CEDRIC DODD LATHE SET UP OPERATOR Jun 17, 2020 10:18
--- NOTE | 2020-06-17 13:58 | Occupational Ther Daily Note ---
OT Current Status-Daily Note Subjective No pain reported. Appearance Pt. up in chair. Declines showering as she has already donned a fresh dress and has had her legs wrapped for swelling. Agrees to therapy otherwise. Mental Status/Objective Patient Orientation: Person, Place, Time, Situation ADL-Treatment Therapy Code Descriptions/Definitions Functional [place] Measure: 0=Not Assessed/NA 4=Minimal Assistance 1=Total Assistance 5=Supervision or Setup 2=Maximal Assistance 6=Modified [place] 3=Moderate Assistance 7=Complete IndependenceSCALE: Activities may be completed with or without assistive devices. 1-Ytuqfduwpd-mtbebzu completes the activity by him/herself with no assistance from a helper. 5-Set-up or Clean-up Assistance-helper sets up or cleans up; patient completes activity. [place] assists only prior to or following the activity. 4-Supervision or Touching Assistance-helper provides verbal cues and/or touching/steadying and/or contact guard assistance as patient completes activity. Assistance may be provided throughout the activity or intermittently. 3-Partial/Moderate Assistance-helper does LESS THAN HALF the effort. [place] lifts, holds or supports trunk or limbs, but provides less than half the effort. 2-Substantial/Maximal Assistance-helper does MORE THAN HALF the effort. [place] lifts or holds trunk or limbs and provides more than half the effort. 0-Rpimqwfyo-thjfpn does ALL the effort. Patient does none of the effort to complete the activity. Or, the assistance of 2 or more helpers is required for the patient to complete the activity. If activity was not attempted, code reason: 7-Patient Refused. 9-Not Applicable-not attempted and the patient did not perform the activity before the current illness, exacerbation or injury. 10-Not Attempted due to Environmental Limitations-(lack of equipment, weather restraints, etc.). 88-Not Attempted due to Medical Conditions or Safety Concerns. Eating (QC): 6 Upper Body Dressing (QC): 5 (Reported by pt. to don mumu.) Lower Body Dressing (QC): 3 (Mod assist to don fresh brief over feet while seated on toilet. Pt. declines using AE to do this as her family assists her as needed at home. Pt. able to don over hips in stance.) On/Off Footwear: 2 (Pt. declines using sock aide to don her own slipper socks. Pt. states that her family does this for her. Otherwise, she only wears slip on shoes at home.) Toileting Hygiene (QC): 4 Toilet Transfer (QC): 4 Other Treatment Pt. agrees to work with OT. Pt. completes ADL tasks, and then ambulates to therapy gym with CGA and walker. While in gym, PT and OT completed co-treatment due to need of skilled assistance x 2 for standing mobility/strengthening/balance. PT facilitated standing balance and weight shifts, both with and without walker, while OT facilitated UE stretch/reach to bat balloon. Pt. also completed other balance/strengthening activities with therapy, and also donned 1 lb. wrist weights during tasks for continued strengthening. All needs met after therapy session. Education OT Patient Education: Correct positioning, Exercise program, Modified ADL techniques, Progress toward Goal/Update tx plan, Purpose of tx/functional activities, Reviewed precautions, Transfer techniques Teaching Recipient: Patient, Family Teaching Methods: Demonstration, Discussion Response to Teaching: Verbalize Understanding, Return Demonstration OT Short Term Goals Short Term Goals Time Frame: Jun 18, 2020 Eatin Oral hygiene: 5 Toileting hygiene: 4 Shower/bathe self: 4 Upper body dressin Lower body dressin (With AE) Putting on/taking off footwear: 4 (With AE) OT Capacity Analyst Goals Capacity Analyst Goals Time Frame: Jul 02, 2020 Eating (QC): 6 Oral Hygiene (QC): 6 Toileting Hygiene (QC): 6 Shower/Bathe Self (QC): 5 Upper Body Dressing (QC): 6 Lower Body Dressing (QC): 5 On/Off Footwear (QC): 5 (With AE) Additional Goals: 1-Demonstrate ADL Tasks, 2-Verbalize Understanding, 3- ImproveStrength/[place] 1=Demonstrate adherence to instructed precautions during ADL tasks. 2=Patient will verbalize/demonstrate understanding of assistive devices/modifications for ADL. 3=Patient will improve strength/tolerance for activity to enable patient to perform ADL's. OT Education/Plan Problem List/Assessment Assessment: Decreased Activ Tolerance, Impaired Funct Balance, Impaired I ADL's, Impaired Self-Care Skills Discharge Recommendations Plan/Recommendations: Continue POC Therapy Discharge Recommendati: Home & Family, Post Acute OT Treatment Plan/Plan of Care Treatment,Training & Education: Yes Patient would benefit from OT for education, treatment and training to promote independence in ADL's, mobility, safety and/or upper extremity function for ADL's. Plan of Care: ADL Retraining, Functional Mobility, UE Funct Exercise/Act Treatment Duration: Jul 02, 2020 Frequency: At least 5 of 7 days/Wk (IRF) Estimated Hrs Per Day: 1.5 hours per day Agreement: Yes Rehab Potential: Fair Time/GCodes Start Time: 08:30 Stop Time: 10:00 Total Time Billed (hr/min): 90 Billed Treatment Time 2354-9135 1, ADL x 15minutes, Ex x 15minutes [id number] FA x [id number] with PT. Please see above note for designated roles. GLENNA DE PAZ OT Jun 17, 2020 13:58
--- NOTE | 2020-06-17 14:06 | Physical Therapy Daily Note ---
PT Daily Note-Current Subjective Pt. agrees to Rx, wants to go to bathroom 1st. Pain Location: No Pain Reported Mental Status Patient Orientation: Normal For Age Transfers SCALE: Activities may be completed with or without assistive devices. 2-Ieczfiyjwl-ivpgllc completes the activity by him/herself with no assistance from a helper. 5-Set-up or Clean-up Assistance-helper sets up or cleans up; patient completes activity. [place] assists only prior to or following the activity. 4-Supervision or Touching Assistance-helper provides verbal cues and/or touching/steadying and/or contact guard assistance as patient completes activity. Assistance may be provided throughout the activity or intermittently. 3-Partial/Moderate Assistance-helper does LESS THAN HALF the effort. [place] lifts, holds or supports trunk or limbs, but provides less than half the effort. 2-Substantial/Maximal Assistance-helper does MORE THAN HALF the effort. [place] lifts or holds trunk or limbs and provides more than half the effort. 1-Iwttzchyw-tfpufw does ALL the effort. Patient does none of the effort to complete the activity. Or, the assistance of 2 or more helpers is required for the patient to complete the activity. If activity was not attempted, code reason: 7-Patient Refused. 9-Not Applicable-not attempted and the patient did not perform the activity before the current illness, exacerbation or injury. 10-Not Attempted due to Environmental Limitations-(lack of equipment, weather restraints, etc.). 88-Not Attempted due to Medical Conditions or Safety Concerns. all TRFs SBA to Mod I Weight Bearing Right Lower Extremity: Right Full Weight Bearing Left Lower Extremity: Left Full Weight Bearing Gait Training Does the Patient Walk?: Yes Gait Assistive Device: FWW 150ft x 2 FWW SBA, slow, flexed at trunk, no LOB Exercises Seated Therapy Exercises: Ankle pumps, Sit to stand, Long arc quads, Hip flexion, Hip abd/add Seated Reps: 12 NuStep Minutes: 12 NuStep Workload: 4 Treatments toileted indep/SBA Assessment Current Status: Good Progress PT Short Term Goals Short Term Goals Time Frame: Jun 18, 2020 Roll Left & Right: 6 Sit to lyin Lying to sitting on side of be: 5 Sit to stand: 5 Chair/ghv-zi-lkpgj transfer: 5 Toilet transfer: 5 Car transfer: 5 Walk 10 feet: 5 Walk 50 feet with two turns: 5 Walk 150 feet: 5 Walking 10ft on uneven surface: 5 1 step (curb): 4 4 steps: 4 12 steps: 9 Picking up objects: 4 PT Manager Cosmetic Goals Manager Cosmetic Goals PT Manager Cosmetic Goals Time Frame: Jul 02, 2020 Roll Left & Right (QC): 6 Sit to Lying (QC): 6 Lying-Sitting on Side/Bed(QC): 6 Sit to Stand (QC): 6 Chair/Ily-qn-Blovf Xfer(QC): 6 Toilet Transfer (QC): 6 Car Transfer (QC): 6 Does the Patient Walk: Yes Walk 10 feet (QC): 6 Walk 50ft with 2 Turns (QC): 6 Walk 150 ft (QC): 6 Walking 10ft on Uneven Surface: 6 1 Step (curb) (QC): 6 4 Steps (QC): 5 12 Steps (QC): 9 Picking up an Object (QC): 5 Does the Pt use WC or Scooter?: No Wheel 50 feet with 2 turns (QC: 9 Type: N/A Wheel 150 feet: 9 Type: N/A PT Plan Treatment/Plan Treatment Plan: Continue Plan of Care Treatment Plan: Bed Mobility, Concurrent Therapy, Education, Functional Activity [place], Functional Strength, Group Therapy, Gait, Safety, Therapeutic Exercise, Transfers Treatment Duration: Jul 02, 2020 Frequency: At least 5 of 7 days/Wk (IRF) Estimated Hrs Per Day: 1.5 hours per day Patient and/or Family Agrees t: Yes Safety Risks/Education Patient Education: Gait Training, Transfer Techniques, Correct Positioning, Di sease Process, Safety Issues Teaching Recipient: Patient Teaching Methods: Demonstration, Discussion Response to Teaching: Verbalize Understanding, Return Demonstration, Reinforcement Needed Time/GCodes Time In: 1330 Time Out: 1400 Total Billed Treatment Time: 30 Total Billed Treatment 1,GT15m,EX15m CEDRIC DODD MAYONNAISE MIXER Jun 17, 2020 14:06
[2020-06-17] MEDS: PANTOPRAZOLE 40 MG (PROTONIX) TAB PO SCH (16:54)
[2020-06-17 17:46] VITALS: BP 134/60
[2020-06-17 20:50] VITALS: BP 149/67
[2020-06-17] MEDS: MIRTAZAPINE 15 MG (REMERON) TAB PO SCH (20:56)
[2020-06-17] MEDS: MELATONIN 3 MG TABLET PO PRN (20:57)
[2020-06-18 05:45] VITALS: BP 152/71
[2020-06-18] MEDS: METOCLOPRAMIDE 5 MG (REGLAN) TAB PO SCH ×2 (06:46→17:19)
[2020-06-18] MEDS: ASPIRIN E.C. 81 MG (ECOTRIN) TAB PO SCH (07:33)
[2020-06-18] MEDS: lisINopril 20 MG (PRINIVIL) TABLET PO SCH (07:34)
[2020-06-18] MEDS: CARVEDILOL 12.5 MG (COREG) TABLET PO SCH ×2 (07:35→20:46)
[2020-06-18] MEDS: DOCUSATE SODIUM 100 MG (COLACE) CAP PO SCH ×2 (07:35→20:58)
[2020-06-18] MEDS: TIMOLOL MALEATE 0.5% 5 ML (TIMOPTIC) BTL OS SCH ×2 (07:37→20:58)
[2020-06-18 07:44] VITALS: BP 148/68
--- NOTE | 2020-06-18 09:06 | PM&R Progress Note ---
Subjective HPI/CC On Admission Date Seen by Provider: Jun 18, 2020 Time Seen by Provider: 09:15 Subjective/Events-last exam 06/18/20: Pt doing pretty well but concerned about her sodium level Considering I stopped the hydrochlorothiazide she is probably at baseline 132- 133 although she would want to try the fluid restriction and sodium tablet so we will do that Ambulating around doing well Bowels moved yesterday Overall pretty tired 06/17/20: Pt doing much better Less dysphasia Sodium level of 132 Loose stools continue Overall much better 06/16/20: Patient doing well today Noted constipation EGD discussed BP varies and it makes her nervous 06/15/20: Patient feels better EGD yesterday No complaints Son visited today 06/14/20: Doing well EGD reviewed Feels better BM yesterday 06/13/20: Patient doing well No issues Had her COVID vaccine 2nd dose 05/11/20 Coughed on Lactulose so initiated IS No pain reported 06/12/20: Pt doing really well today Sodium level up at 133 Ordered Reglan BID the way she takes it Podiatry consult initiated Bowels moved yesterday Review of Systems General: Fatigue Neurological: Weakness Objective Exam Vital Signs Vital Signs Date Time Temp Pulse Resp B/P (MAP) Pulse Ox O2 Delivery O2 Flow Rate FiO2 06/18/20 21:38 Room Air 06/18/20 20:30 76 153/65 (94) 06/18/20 17:09 36.6 18 94 Capillary Refill : General Appearance: No Apparent Distress, WD/WN, Chronically ill HEENT: PERRL/EOMI, Normal ENT Inspection, Pharynx Normal, Moist Mucous Membranes, Other (poor dentition) Neck: Full Range of Motion, Normal Inspection, Non Tender, Supple Respiratory: Chest Non Tender, Lungs Clear, Normal Breath Sounds, No Accessory Muscle Use, No Respiratory Distress Cardiovascular: Regular Rate, Rhythm, No Edema, No Gallop, No JVD, No Murmur Gastrointestinal: Normal Bowel Sounds, No Organomegaly, No Pulsatile Mass, Non Tender, Soft Back: Normal Inspection, No CVA Tenderness, No Vertebral Tenderness Extremity: No Calf Tenderness, Pedal Edema Neurologic/Psychiatric: Alert, Oriented x3, Normal Mood/Affect, tone regulator II-XII Norm as Tested, Abnormal Gait, Motor Weakness Skin: Normal Color, Warm/Dry Results/Procedures Lab Patient resulted labs reviewed. FIM Transfers Therapy Code Descriptions/Definitions Functional [place] Measure: 0=Not Assessed/NA 4=Minimal Assistance 1=Total Assistance 5=Supervision or Setup 2=Maximal Assistance 6=Modified [place] 3=Moderate Assistance 7=Complete IndependenceSCALE: Activities may be completed with or without assistive devices. 6-Qhpiowckzx-tzznqfa completes the activity by him/herself with no assistance from a helper. 5-Set-up or Clean-up Assistance-helper sets up or cleans up; patient completes activity. [place] assists only prior to or following the activity. 4-Supervision or Touching Assistance-helper provides verbal cues and/or touching/steadying and/or contact guard assistance as patient completes activity. Assistance may be provided throughout the activity or intermittently. 3-Partial/Moderate Assistance-helper does LESS THAN HALF the effort. [place] lifts, holds or supports trunk or limbs, but provides less than half the effort. 2-Substantial/Maximal Assistance-helper does MORE THAN HALF the effort. [place] lifts or holds trunk or limbs and provides more than half the effort. 8-Josmtkjqt-smxjwv does ALL the effort. Patient does none of the effort to complete the activity. Or, the assistance of 2 or more helpers is required for the patient to complete the activity. If activity was not attempted, code reason: 7-Patient Refused. 9-Not Applicable-not attempted and the patient did not perform the activity before the current illness, exacerbation or injury. 10-Not Attempted due to Environmental Limitations-(lack of equipment, weather restraints, etc.). 88-Not Attempted due to Medical Conditions or Safety Concerns. Roll Left to Right (QC): 4 Sit to Lying (QC): 4 Sit to Stand (QC): 5 Chair/Tgf-hz-Nsfqg Xfer(QC): 5 Car Transfer (QC): 4 Gait Training Does the Patient Walk?: Yes Distance: 75', 75', 150' Walk 10 feet (QC): 5 Walk 50 ft with 2 Turns(QC): 5 Walk 150 ft (QC): 5 Walking 10ft/uneven surface-QC: 4 Gait Persons Needed: 1 Gait Assistive Device: FWW Wheelchair Training Does the Pt Use a Wheelchair?: No Wheel 50 ft with 2 turns (QC): 9 Wheel 150 ft (QC): 9 Stair Training 1 Step (curb) (QC): 3 4 Steps (QC): 88 12 Steps (QC): 9 Balance Picking up an Object (QC): 88 ADL-Treatment Eating (QC): 6 Oral Hygiene (QC): 6 Shower/Bathe Self (QC): 4 Upper Body Dressing (QC): 5 (Reported by pt. to don mumu.) Lower Body Dressing (QC): 3 (Mod assist to don fresh brief over feet while seated on toilet. Pt. declines using AE to do this as her family assists her as needed at home. Pt. able to don over hips in stance.) On/Off Footwear (QC): 2 (Pt. declines using sock aide to don her own slipper socks. Pt. states that her family does this for her. Otherwise, she only wears slip on shoes at home.) Toileting Hygiene (QC): 4 Toilet Transfer (QC): 4 Assessment/Plan Assessment and Plan Assess & Plan/Chief Complaint Assessment: Debility Hyponatremia holding HCTZ Severe weakness Dysphagia with gastric ulcers in the past on EGD and EGD revealed gastritis on EGD per Dr Astorga 06/14/20 HTN GERD Glaucoma Gastroparesis Edema legs Plan: Monitor closely Check labs Home meds 06/12/20: Monitor closely Hold HCTZ Monitor BP 06/13/20: Monitor BP Monitor for pain 06/14/20: Appreciate Dr Astorga for EGD Monitor closely 06/15/20: Monitor dysphagia Monitor for falls 06/16/20: Monitor dysphagia BP ok Supp if needed 06/17/20: Monitor sodium level Monitor dysphagia 06/18/20: Salt tablets and fluid restriction Monitor closely (1) Debility (2) Generalized weakness Status: Acute (3) Hyponatremia Status: Acute (4) Electrolyte abnormality (5) Essential (primary) hypertension Status: Chronic MARKO ANDERS DO Jun 18, 2020 09:06
[2020-06-18] MEDS: polyethylene glycoL POWDER 17 GM (MIRALAX) PACK PO SCH ×2 (09:26→20:59)
[2020-06-18] MEDS: SENNA W/DOCUSATE (SENOKOT S) TABLET PO SCH ×2 (09:27→20:47)
[2020-06-18] MEDS ORDERED: SODIUM CHLORIDE 1 GM TABLET PO ONE (10:15)
[2020-06-18] MEDS ORDERED: PATIENT MAY USE OWN MED,SINGLE MED PO SCH (10:45)
--- NOTE | 2020-06-18 12:14 | Physical Therapy Daily Note ---
PT Daily Note-Current Subjective Pt sitting in recliner upon arrival. Pt agrees to PT and asks to use BR. Pain Location: No Pain Reported Mental Status Patient Orientation: Person, Place, Time, Situation Attachments: Other-See Comments (Michel WIGGINS) Transfers SCALE: Activities may be completed with or without assistive devices. 6-Myoejnriut-nbxssad completes the activity by him/herself with no assistance from a helper. 5-Set-up or Clean-up Assistance-helper sets up or cleans up; patient completes activity. [place] assists only prior to or following the activity. 4-Supervision or Touching Assistance-helper provides verbal cues and/or touching/steadying and/or contact guard assistance as patient completes a ctivity. Assistance may be provided throughout the activity or intermittently. 3-Partial/Moderate Assistance-helper does LESS THAN HALF the effort. [place] lifts, holds or supports trunk or limbs, but provides less than half the effort. 2-Substantial/Maximal Assistance-helper does MORE THAN HALF the effort. [place] lifts or holds trunk or limbs and provides more than half the effort. 0-Krkrgqqcy-yqnzzs does ALL the effort. Patient does none of the effort to complete the activity. Or, the assistance of 2 or more helpers is required for the patient to complete the activity. If activity was not attempted, code reason: 7-Patient Refused. 9-Not Applicable-not attempted and the patient did not perform the activity before the current illness, exacerbation or injury. 10-Not Attempted due to Environmental Limitations-(lack of equipment, weather restraints, etc.). 88-Not Attempted due to Medical Conditions or Safety Concerns. Sit to Stand (QC): 5 Toilet Transfer (QC): 5 Weight Bearing Right Lower Extremity: Right Full Weight Bearing Left Lower Extremity: Left Full Weight Bearing Gait Training Does the Patient Walk?: Yes Distance: 125', 75' Walk 10 feet (QC): 5 Walk 50 ft with 2 Turns(QC): 5 Walk 150 ft (QC): 5 Gait Persons Needed: 1 Gait Assistive Device: FWW Wheelchair Training Does the Pt Use a Wheelchair?: No Exercises Seated Therapy Exercises: Ankle pumps, Long arc quads, Hip flexion, Kicking activity, Glut set Seated Reps: 15 Standing: Hip Abduction, Hamstring curls, Marching, Mini squats Standing Reps: 15 Treatments TF to standing and uses BR. Amb. in hallway then completes Seated EX followed by Standing EX at //bars. Takes RB then amb in hallway. Pt returns to room to rest in recliner and enjoy lunch. All needs met, call light in hand. Assessment Current Status: Good Progress Pt fatigues and needs occasional RB. Pt needs VC to stay close to FWW even as TF from standing to sitting. PT Short Term Goals Short Term Goals Time Frame: Jun 18, 2020 Roll Left & Right: 6 Sit to lyin Lying to sitting on side of be: 5 Sit to stand: 5 Chair/xjw-ro-efjkj transfer: 5 Toilet transfer: 5 Car transfer: 5 Walk 10 feet: 5 Walk 50 feet with two turns: 5 Walk 150 feet: 5 Walking 10ft on uneven surface: 5 1 step (curb): 4 4 steps: 4 12 steps: 9 Picking up objects: 4 PT Alf Goals Driving [employer] Instructor Goals PT Alf Goals Time Frame: Jul 02, 2020 Roll Left & Right (QC): 6 Sit to Lying (QC): 6 Lying-Sitting on Side/Bed(QC): 6 Sit to Stand (QC): 6 Chair/Otu-jc-Qmzmx Xfer(QC): 6 Toilet Transfer (QC): 6 Car Transfer (QC): 6 Does the Patient Walk: Yes Walk 10 feet (QC): 6 Walk 50ft with 2 Turns (QC): 6 Walk 150 ft (QC): 6 Walking 10ft on Uneven Surface: 6 1 Step (curb) (QC): 6 4 Steps (QC): 5 12 Steps (QC): 9 Picking up an Object (QC): 5 Does the Pt use WC or Scooter?: No Wheel 50 feet with 2 turns (QC: 9 Type: N/A Wheel 150 feet: 9 Type: N/A PT Plan Problem List Problem List: Activity Tolerance, Safety Treatment/Plan Treatment Plan: Continue Plan of Care Treatment Plan: Bed Mobility, Concurrent Therapy, Education, Functional Activity [place], Functional Strength, Group Therapy, Gait, Safety, Therapeutic Exercise, Transfers Treatment Duration: Jul 02, 2020 Frequency: At least 5 of 7 days/Wk (IRF) Estimated Hrs Per Day: 1.5 hours per day Patient and/or Family Agrees t: Yes Safety Risks/Education Patient Education: Gait Training, Transfer Techniques, Correct Positioning, Safety Issues Teaching Recipient: Patient Teaching Methods: Discussion Response to Teaching: Verbalize Understanding Time/GCodes Time In: 1100 Time Out: 1200 Total Billed Treatment Time: 60 Total Billed Treatment 1, GT (15m), EX x2 (30m) & FA (15m) JAZMIN RODRÍGUEZ POCKET MAKER Jun 18, 2020 12:14
[2020-06-18] MEDS: CLOTRIMAZOLE 1% CREAM (LOTRIMIN) 30 GM TOP SCH ×2 (12:55→21:00)
[2020-06-18] MEDS: BETAMETHASONE/CLOTRIM CREAM (LOTRISONE) 45 GM TP SCH ×2 (12:56→21:34)
--- NOTE | 2020-06-18 14:42 | Occupational Ther Daily Note ---
OT Current Status-Daily Note Subjective No pain reported. Mental Status/Objective Patient Orientation: Person, Place, Time, Situation ADL-Treatment Therapy Code Descriptions/Definitions Functional [place] Measure: 0=Not Assessed/NA 4=Minimal Assistance 1=Total Assistance 5=Supervision or Setup 2=Maximal Assistance 6=Modified [place] 3=Moderate Assistance 7=Complete IndependenceSCALE: Activities may be completed with or without assistive devices. 9-Icruoioegs-kknnmcu completes the activity by him/herself with no assistance from a helper. 5-Set-up or Clean-up Assistance-helper sets up or cleans up; patient completes activity. [place] assists only prior to or following the activity. 4-Supervision or Touching Assistance-helper provides verbal cues and/or touching/steadying and/or contact guard assistance as patient completes activity. Assistance may be provided throughout the activity or intermittently. 3-Partial/Moderate Assistance-helper does LESS THAN HALF the effort. [place] lifts, holds or supports trunk or limbs, but provides less than half the effort. 2-Substantial/Maximal Assistance-helper does MORE THAN HALF the effort. [place] lifts or holds trunk or limbs and provides more than half the effort. 2-Orsbtepzo-axmarv does ALL the effort. Patient does none of the effort to complete the activity. Or, the assistance of 2 or more helpers is required for the patient to complete the activity. If activity was not attempted, code reason: 7-Patient Refused. 9-Not Applicable-not attempted and the patient did not perform the activity before the current illness, exacerbation or injury. 10-Not Attempted due to Environmental Limitations-(lack of equipment, weather restraints, etc.). 88-Not Attempted due to Medical Conditions or Safety Concerns. Eating (QC): 6 Shower/Bathe Self (QC): 4 Upper Body Dressing (QC): 5 Lower Body Dressing (QC): 3 (Mod assistance) On/Off Footwear: 2 Toileting Hygiene (QC): 4 Toilet Transfer (QC): 4 Other Treatment Pt. agrees to shower. Ambulates with walker to toilet first. Pt. requires assistance to doff brief over feet. Declines use of AE. Ambulates into shower with CGA. After showering, pt is able to dry self with towels. Requires assistance for brief, shorts over feet, and slipper socks. Pt. continues to decline practicing with AE as her family does this for her at home. Pt. ambulates back to room after pulling brief and shorts over hips in stance. OT provides gentle retrograde massage to bilateral LE with lotion for swelling. Applied PRINCESS wraps to bilateral LE for swelling and comfort. Pt. participated in series of UE exercises with use of red theraband, x 15 reps, in all planes, x 3 exercises x 2 sets. Tolerated treatment well. All needs met up in chair. Education OT Patient Education: Correct positioning, Exercise program, Modified ADL techniques, Progress toward Goal/Update tx plan, Purpose of tx/functional activities, Reviewed precautions, Rehab process, Transfer techniques Teaching Recipient: Patient Teaching Methods: Demonstration, Discussion Response to Teaching: Verbalize Understanding, Return Demonstration OT Short Term Goals Short Term Goals Time Frame: Jun 18, 2020 Eatin Oral hygiene: 5 Toileting hygiene: 4 Shower/bathe self: 4 Upper body dressin Lower body dressin (With AE) Putting on/taking off footwear: 4 (With AE) OT Lead Custodian Goals Lead Custodian Goals Time Frame: Jul 02, 2020 Eating (QC): 6 Oral Hygiene (QC): 6 Toileting Hygiene (QC): 6 Shower/Bathe Self (QC): 5 Upper Body Dressing (QC): 6 Lower Body Dressing (QC): 5 On/Off Footwear (QC): 5 (With AE) Additional Goals: 1-Demonstrate ADL Tasks, 2-Verbalize Understanding, 3- ImproveStrength/[place] 1=Demonstrate adherence to instructed precautions during ADL tasks. 2=Patient will verbalize/demonstrate understanding of assistive devices/modifications for ADL. 3=Patient will improve strength/tolerance for activity to enable patient to perform ADL's. OT Education/Plan Problem List/Assessment Assessment: Decreased Activ Tolerance, Dependent Transfers, Impaired I ADL's, Impaired Self-Care Skills Discharge Recommendations Plan/Recommendations: Continue POC Therapy Discharge Recommendati: Home & Family Treatment Plan/Plan of Care Treatment,Training & Education: Yes Patient would benefit from OT for education, treatment and training to promote independence in ADL's, mobility, safety and/or upper extremity function for ADL's. Plan of Care: ADL Retraining, Functional Mobility, UE Funct Exercise/Act Treatment Duration: Jul 02, 2020 Frequency: At least 5 of 7 days/Wk (IRF) Estimated Hrs Per Day: 1.5 hours per day Agreement: Yes Rehab Potential: Good Time/GCodes Start Time: 09:00 Stop Time: 10:30 Total Time Billed (hr/min): 90 Billed Treatment Time 1,ADL x 45minutes, EX x 45minutes GLENNA DE PAZ OT Jun 18, 2020 14:42
--- NOTE | 2020-06-18 15:18 | Physical Therapy Daily Note ---
PT Daily Note-Current Subjective Pt asleep in recliner upon arrival. Pt agrees to PT. Pain Location: No Pain Reported Mental Status Patient Orientation: Person, Place, Time, Situation Transfers SCALE: Activities may be completed with or without assistive devices. 5-Wsablrkljk-upwxkja completes the activity by him/herself with no assistance from a helper. 5-Set-up or Clean-up Assistance-helper sets up or cleans up; patient completes activity. [place] assists only prior to or following the activity. 4-Supervision or Touching Assistance-helper provides verbal cues and/or touching/steadying and/or contact guard assistance as patient completes activity. Assistance may be provided throughout the activity or intermittently. 3-Partial/Moderate Assistance-helper does LESS THAN HALF the effort. [place] lifts, holds or supports trunk or limbs, but provides less than half the effort. 2-Substantial/Maximal Assistance-helper does MORE THAN HALF the effort. [place] lifts or holds trunk or limbs and provides more than half the effort. 2-Dqfaiijpy-fhggnc does ALL the effort. Patient does none of the effort to complete the activity. Or, the assistance of 2 or more helpers is required for the patient to complete the activity. If activity was not attempted, code reason: 7-Patient Refused. 9-Not Applicable-not attempted and the patient did not perform the activity befo re the current illness, exacerbation or injury. 10-Not Attempted due to Environmental Limitations-(lack of equipment, weather re straints, etc.). 88-Not Attempted due to Medical Conditions or Safety Concerns. Sit to Stand (QC): 5 Toilet Transfer (QC): 5 Weight Bearing Right Lower Extremity: Right Full Weight Bearing Left Lower Extremity: Left Full Weight Bearing Gait Training Does the Patient Walk?: Yes Distance: 100' x2 Walk 10 feet (QC): 5 Walk 50 ft with 2 Turns(QC): 5 Gait Persons Needed: 1 Gait Assistive Device: FWW Wheelchair Training Does the Pt Use a Wheelchair?: No Exercises NuStep Minutes: 15 NuStep Workload: 4 Treatments TF to standing and uses BR. Pt amb in hallway and uses NuStep. Pt takes RB then amb in hallway and returns to room. Pt resting in recliner at end of tx w ith all needs met, call light in hand. Assessment Current Status: Good Progress Pt reports fatigue at end of tx. PT Short Term Goals Short Term Goals Time Frame: Jun 18, 2020 Roll Left & Right: 6 Sit to lyin Lying to sitting on side of be: 5 Sit to stand: 5 Chair/fhx-pf-jlhac transfer: 5 Toilet transfer: 5 Car transfer: 5 Walk 10 feet: 5 Walk 50 feet with two turns: 5 Walk 150 feet: 5 Walking 10ft on uneven surface: 5 1 step (curb): 4 4 steps: 4 12 steps: 9 Picking up objects: 4 PT Ed Tech Goals Ed Tech Goals PT Nursing Home Goals Time Frame: Jul 02, 2020 Roll Left & Right (QC): 6 Sit to Lying (QC): 6 Lying-Sitting on Side/Bed(QC): 6 Sit to Stand (QC): 6 Chair/Png-js-Inwei Xfer(QC): 6 Toilet Transfer (QC): 6 Car Transfer (QC): 6 Does the Patient Walk: Yes Walk 10 feet (QC): 6 Walk 50ft with 2 Turns (QC): 6 Walk 150 ft (QC): 6 Walking 10ft on Uneven Surface: 6 1 Step (curb) (QC): 6 4 Steps (QC): 5 12 Steps (QC): 9 Picking up an Object (QC): 5 Does the Pt use WC or Scooter?: No Wheel 50 feet with 2 turns (QC: 9 Type: N/A Wheel 150 feet: 9 Type: N/A PT Plan Problem List Problem List: Activity Tolerance Treatment/Plan Treatment Plan: Continue Plan of Care Treatment Plan: Bed Mobility, Concurrent Therapy, Education, Functional Activity [place], Functional Strength, Group Therapy, Gait, Safety, Therapeutic Exercise, Transfers Treatment Duration: Jul 02, 2020 Frequency: At least 5 of 7 days/Wk (IRF) Estimated Hrs Per Day: 1.5 hours per day Patient and/or Family Agrees t: Yes Safety Risks/Education Patient Education: Gait Training, Transfer Techniques, Correct Positioning, Safety Issues Teaching Recipient: Patient Teaching Methods: Discussion Response to Teaching: Verbalize Understanding Time/GCodes Time In: 1315 Time Out: 1345 Total Billed Treatment Time: 30 Total Billed Treatment 1, GT (15m) & EX (15m) JAZMIN RODRÍGUEZ MERCHANDISING REPRESENTATIVE Jun 18, 2020 15:18
[2020-06-18 17:09] VITALS: BP 166/70
[2020-06-18] MEDS: ACETAMINOPHEN 325 MG TABLET PO PRN (17:18)
[2020-06-18] MEDS: PANTOPRAZOLE 40 MG (PROTONIX) TAB PO SCH (17:19)
[2020-06-18 20:30] VITALS: BP 153/65
[2020-06-18] MEDS: MELATONIN 3 MG TABLET PO PRN (20:46)
[2020-06-18] MEDS: MIRTAZAPINE 15 MG (REMERON) TAB PO SCH (20:46)
[2020-06-18] MEDS: SODIUM CHLORIDE 1 GM TABLET PO SCH (20:47)
[2020-06-19] MEDS: ACETAMINOPHEN 325 MG TABLET PO PRN
--- NOTE | 2020-06-19 05:21 | PM&R Progress Note ---
Subjective HPI/CC On Admission Date Seen by Provider: Jun 19, 2020 Time Seen by Provider: 09:00 Subjective/Events-last exam 06/19/20: Pt doing okay Having a little SOB and some edema so need to consult Dr. Valerio Amlodipine will be started at 5 mg Wheezing a bit so will initiate IS Had some loose stools today 06/18/20: Pt doing pretty well but concerned about her sodium level Considering I stopped the hydrochlorothiazide she is probably at baseline 132- 133 although she would want to try the fluid restriction and sodium tablet so we will do that Ambulating around doing well Bowels moved yesterday Overall pretty tired 06/17/20: Pt doing much better Less dysphasia Sodium level of 132 Loose stools continue Overall much better 06/16/20: Patient doing well today Noted constipation EGD discussed BP varies and it makes her nervous 06/15/20: Patient feels better EGD yesterday No complaints Son visited today 06/14/20: Doing well EGD reviewed Feels better BM yesterday 06/13/20: Patient doing well No issues Had her COVID vaccine 2nd dose 05/11/20 Coughed on Lactulose so initiated IS No pain reported 06/12/20: Pt doing really well today Sodium level up at 133 Ordered Reglan BID the way she takes it Podiatry consult initiated Bowels moved yesterday Review of Systems General: Fatigue, Malaise Pulmonary: Dyspnea Neurological: Weakness Objective Exam Vital Signs Vital Signs Date Time Temp Pulse Resp B/P (MAP) Pulse Ox O2 Delivery O2 Flow Rate FiO2 06/19/20 21:00 94 Room Air 06/19/20 20:30 76 124/66 (85) 06/19/20 17:59 36.3 20 Capillary Refill : General Appearance: No Apparent Distress, WD/WN, Chronically ill HEENT: PERRL/EOMI, Normal ENT Inspection, Pharynx Normal, Moist Mucous Membranes, Other (poor dentition) Neck: Full Range of Motion, Normal Inspection, Non Tender, Supple Respiratory: Chest Non Tender, Lungs Clear, Normal Breath Sounds, No Accessory Muscle Use, No Respiratory Distress Cardiovascular: Regular Rate, Rhythm, No Edema, No Gallop, No JVD, No Murmur Gastrointestinal: Normal Bowel Sounds, No Organomegaly, No Pulsatile Mass, Non Tender, Soft Back: Normal Inspection, No CVA Tenderness, No Vertebral Tenderness Extremity: No Calf Tenderness, Pedal Edema Neurologic/Psychiatric: Alert, Oriented x3, Normal Mood/Affect, shipping technician II-XII Norm as Tested, Abnormal Gait, Motor Weakness Skin: Normal Color, Warm/Dry Results/Procedures Lab Laboratory Tests 06/20/20 03:07 Patient resulted labs reviewed. FIM Transfers Therapy Code Descriptions/Definitions Functional [place] Measure: 0=Not Assessed/NA 4=Minimal Assistance 1=Total Assistance 5=Supervision or Setup 2=Maximal Assistance 6=Modified [place] 3=Moderate Assistance 7=Complete IndependenceSCALE: Activities may be completed with or without assistive devices. 6-Hybxvrfdey-pgogbop completes the activity by him/herself with no assistance from a helper. 5-Set-up or Clean-up Assistance-helper sets up or cleans up; patient completes activity. [place] assists only prior to or following the activity. 4-Supervision or Touching Assistance-helper provides verbal cues and/or touching/steadying and/or contact guard assistance as patient completes activity. Assistance may be provided throughout the activity or intermittently. 3-Partial/Moderate Assistance-helper does LESS THAN HALF the effort. [place] lifts, holds or supports trunk or limbs, but provides less than half the effort. 2-Substantial/Maximal Assistance-helper does MORE THAN HALF the effort. [place] lifts or holds trunk or limbs and provides more than half the effort. 5-Gjsdaarwo-btmtej does ALL the effort. Patient does none of the effort to complete the activity. Or, the assistance of 2 or more helpers is required for the patient to complete the activity. If activity was not attempted, code reason: 7-Patient Refused. 9-Not Applicable-not attempted and the patient did not perform the activity before the current illness, exacerbation or injury. 10-Not Attempted due to Environmental Limitations-(lack of equipment, weather restraints, etc.). 88-Not Attempted due to Medical Conditions or Safety Concerns. Roll Left to Right (QC): 4 Sit to Lying (QC): 4 Sit to Stand (QC): 5 Chair/Zkn-od-Vemex Xfer(QC): 5 Car Transfer (QC): 4 Gait Training Does the Patient Walk?: Yes Distance: 100' x2 Walk 10 feet (QC): 5 Walk 50 ft with 2 Turns(QC): 5 Walk 150 ft (QC): 5 Walking 10ft/uneven surface-QC: 4 Gait Persons Needed: 1 Gait Assistive Device: FWW Wheelchair Training Does the Pt Use a Wheelchair?: No Wheel 50 ft with 2 turns (QC): 9 Wheel 150 ft (QC): 9 Stair Training 1 Step (curb) (QC): 3 4 Steps (QC): 88 12 Steps (QC): 9 Balance Picking up an Object (QC): 88 ADL-Treatment Eating (QC): 6 Oral Hygiene (QC): 6 Shower/Bathe Self (QC): 4 Upper Body Dressing (QC): 5 Lower Body Dressing (QC): 3 (Mod assistance) On/Off Footwear (QC): 2 Toileting Hygiene (QC): 4 Toilet Transfer (QC): 4 Assessment/Plan Assessment and Plan Assess & Plan/Chief Complaint Assessment: Debility Hyponatremia holding HCTZ Severe weakness Dysphagia with gastric ulcers in the past on EGD and EGD revealed gastritis on EGD per Dr Astorga 06/14/20 HTN GERD Glaucoma Gastroparesis Edema legs Plan: Monitor closely Check labs Home meds 06/12/20: Monitor closely Hold HCTZ Monitor BP 06/13/20: Monitor BP Monitor for pain 06/14/20: Appreciate Dr Astorga for EGD Monitor closely 06/15/20: Monitor dysphagia Monitor for falls 06/16/20: Monitor dysphagia BP ok Supp if needed 06/17/20: Monitor sodium level Monitor dysphagia 06/18/20: Salt tablets and fluid restriction Monitor closely 06/19/20: Dr Valerio consult [facility] 5mg Edema management Fluid restriction with salt tablets (1) Debility (2) Generalized weakness Status: Acute (3) Hyponatremia Status: Acute (4) Electrolyte abnormality (5) Essential (primary) hypertension Status: Chronic MARKO ANDERS DO Jun 19, 2020 05:21
[2020-06-19] MEDS: METOCLOPRAMIDE 5 MG (REGLAN) TAB PO SCH ×2 (05:27→17:03)
[2020-06-19 06:00] VITALS: BP 184/77
[2020-06-19] MEDS: lisINopril 20 MG (PRINIVIL) TABLET PO SCH (06:01)
[2020-06-19] MEDS: CARVEDILOL 12.5 MG (COREG) TABLET PO SCH ×2 (06:01→21:10)
[2020-06-19] MEDS: ALPRAZolam 0.25 MG (XANAX) TAB PO PRN (06:25)
[2020-06-19 08:00] VITALS: BP 164/75
[2020-06-19] MEDS: SENNA W/DOCUSATE (SENOKOT S) TABLET PO SCH ×2 (08:20→21:00)
[2020-06-19] MEDS: polyethylene glycoL POWDER 17 GM (MIRALAX) PACK PO SCH ×2 (08:20→21:00)
[2020-06-19] MEDS: DOCUSATE SODIUM 100 MG (COLACE) CAP PO SCH ×2 (08:20→21:00)
[2020-06-19] MEDS: ASPIRIN E.C. 81 MG (ECOTRIN) TAB PO SCH (08:21)
[2020-06-19] MEDS: TIMOLOL MALEATE 0.5% 5 ML (TIMOPTIC) BTL OS SCH ×2 (08:21→21:10)
[2020-06-19] MEDS: SODIUM CHLORIDE 1 GM TABLET PO SCH ×2 (08:21→21:10)
[2020-06-19] MEDS: CLOTRIMAZOLE 1% CREAM (LOTRIMIN) 30 GM TOP SCH ×2 (08:24→21:10)
[2020-06-19] MEDS: BETAMETHASONE/CLOTRIM CREAM (LOTRISONE) 45 GM TP SCH ×2 (09:00→21:00)
[2020-06-19] MEDS ORDERED: amLODIPine 5 MG (NORVASC) TAB PO ONE (09:45)
[2020-06-19 10:50] VITALS: BP 169/76
--- NOTE | 2020-06-19 10:55 | Occ Therapy Progress Note ---
Therapy Progress Note OT attempted twice this a.m. for treatment with pt. [id number]- Pt. up in chair and states that she is not doing well. Nursing in room and reports that pt.s BP was high this a.m., but has lowered since. Please see nursing notes. Nursing reports that pt. took a xanax for anxiety, and is having difficulty staying awake. Pt. declines all attempts at this time and is worried about her BP. Pt. wanting to talk with Dr. MUNOZ will come back. [id number]- OT attempts treatment again. Pt. is sound asleep in chair but wakes up. Pt. becomes tearful and states, "I just can't do anything right now." OT attempts to encourage pt, offer walk, shower, warm washcloth or blanket. Pt. declines all attempts and states that maybe she will do something later. All needs met. Nursing notified that pt. declining at this time. 1, visit x 5minutes, [id number] 1, visit x 5minutes, [phone] No charge GLENNA DE PAZ OT Jun 19, 2020 10:55
--- NOTE | 2020-06-19 12:11 | Physical Therapy Daily Note ---
PT Daily Note-Current Subjective Pt reclined in recliner upon arrival. Pt agrees to PT and reports increased swelling of B LE and SOA. [employer] with [facility] will consult and order possible Echo. Pt agrees to PT as she is more alert than earlier morning. Pain Location: No Pain Reported Mental Status Patient Orientation: Person, Place, Time, Situation Attachments: Other-See Comments (PRINCESS wrap B LE) Transfers SCALE: Activities may be completed with or without assistive devices. 2-Upathjerbg-mygqowf completes the activity by him/herself with no assistance from a helper. 5-Set-up or Clean-up Assistance-helper sets up or cleans up; patient completes activity. [place] assists only prior to or following the activity. 4-Supervision or Touching Assistance-helper provides verbal cues and/or touching/steadying and/or contact guard assistance as patient completes activity. Assistance may be provided throughout the activity or intermittently. 3-Partial/Moderate Assistance-helper does LESS THAN HALF the effort. [place] lifts, holds or supports trunk or limbs, but provides less than half the effort. 2-Substantial/Maximal Assistance-helper does MORE THAN HALF the effort. [place] lifts or holds trunk or limbs and provides more than half the effort. 6-Fttbytfxn-hjcjzf does ALL the effort. Patient does none of the effort to complete the activity. Or, the assistance of 2 or more helpers is required for the patient to complete the activity. If activity was not attempted, code reason: 7-Patient Refused. 9-Not Applicable-not attempted and the patient did not perform the activity before the current illness, exacerbation or injury. 10-Not Attempted due to Environmental Limitations-(lack of equipment, weather restraints, etc.). 88-Not Attempted due to Medical Conditions or Safety Concerns. Sit to Stand (QC): 5 Toilet Transfer (QC): 5 Weight Bearing Right Lower Extremity: Right Full Weight Bearing Left Lower Extremity: Left Full Weight Bearing Gait Training Does the Patient Walk?: Yes Distance: 100' x2 Walk 10 feet (QC): 5 Walk 50 ft with 2 Turns(QC): 5 Gait Persons Needed: 1 Gait Assistive Device: FWW Wheelchair Training Does the Pt Use a Wheelchair?: No Exercises NuStep Minutes: 15 NuStep Workload: 4 Treatments Pt. seen for co-treatment with OT/PT due to poor activity tolerance and SOA. Pt's sats monitored and remain at 96-97% with activity. OT facilitates pt's ability to dress and toilet self, while PT works on pt's endurance to ambulate to toilet, transfer appropriately, and maintain sitting balance during dynamic ADL task. Pt with PT in room at end of OT treatment. All needs met. Pt stands from recliner and amb. in hallway. Pt uses NuStep before taking RB. Blood Pressure is taken and BP is 169/76. Assessment Current Status: Good Progress Pt fatigues and needs increased rest breaks. PT Short Term Goals Short Term Goals Time Frame: Jun 18, 2020 Roll Left & Right: 6 Sit to lyin Lying to sitting on side of be: 5 Sit to stand: 5 Chair/bho-ja-zyllg transfer: 5 Toilet transfer: 5 Car transfer: 5 Walk 10 feet: 5 Walk 50 feet with two turns: 5 Walk 150 feet: 5 Walking 10ft on uneven surface: 5 1 step (curb): 4 4 steps: 4 12 steps: 9 Picking up objects: 4 PT Claims Administrator Goals Claims Administrator Goals PT Claims Administrator Goals Time Frame: Jul 02, 2020 Roll Left & Right (QC): 6 Sit to Lying (QC): 6 Lying-Sitting on Side/Bed(QC): 6 Sit to Stand (QC): 6 Chair/Yfi-en-Mfgnk Xfer(QC): 6 Toilet Transfer (QC): 6 Car Transfer (QC): 6 Does the Patient Walk: Yes Walk 10 feet (QC): 6 Walk 50ft with 2 Turns (QC): 6 Walk 150 ft (QC): 6 Walking 10ft on Uneven Surface: 6 1 Step (curb) (QC): 6 4 Steps (QC): 5 12 Steps (QC): 9 Picking up an Object (QC): 5 Does the Pt use WC or Scooter?: No Wheel 50 feet with 2 turns (QC: 9 Type: N/A Wheel 150 feet: 9 Type: N/A PT Plan Problem List Problem List: Activity Tolerance, Gait Treatment/Plan Treatment Plan: Continue Plan of Care Treatment Plan: Bed Mobility, Concurrent Therapy, Education, Functional Activity [place], Functional Strength, Group Therapy, Gait, Safety, Therapeutic Exercise, Transfers Treatment Duration: Jul 02, 2020 Frequency: At least 5 of 7 days/Wk (IRF) Estimated Hrs Per Day: 1.5 hours per day Patient and/or Family Agrees t: Yes Safety Risks/Education Patient Education: Gait Training, Correct Positioning, Safety Issues Teaching Recipient: Patient Teaching Methods: Discussion Response to Teaching: Verbalize Understanding Time/GCodes Time In: 1100 Time Out: 1200 Total Billed Treatment Time: 60 Total Billed Treatment 1, FA x2 (30m), GT (15m) & EX (15m) JAZMIN RODRÍGUEZ COVER MARKER Jun 19, 2020 12:11
--- NOTE | 2020-06-19 12:29 | Consultation-Cardiology ---
HPI-Cardiology Cardiology Consultation Date of Consultation 06/19/20 Date of Admission Time Seen by Provider: 09:15 Indication: Dyspnea, HTN HPI Patient is an 84 y/o female well known to me from clinic with hx of diastolic dysfunction, HTN, HLP. Currently in IRF for debility/weakness. Was hospitalized d/t hyponatremia. Reporting increased dypspnea over the past several days. Den ies any chest pain, palpitaitons, dizziness or lightheadedness. Reports increased peripheral edema. Home Medications & Allergies Allergies: Coded Allergies: Penicillins (Verified Allergy, Unknown, 10/01/19) Home Medication List Reviewed: Yes BDH-Arjiqs-Phtgid Hx Patient Social History Marital Status: single Employed/Student: retired Smoking Status: Never a Smoker 2nd Hand Smoke Exposure: No Recent Hopitalizations: No Have you traveled recently?: No Alcohol Use?: No Immunizations Up To Date Tetanus Booster (TDap): More than 5yrs Date of Pneumonia Vaccine: Apr 30, 2018 Date of Influenza Vaccine: Nov 21, 2019 Past Medical History HTN, HLP Family Medical History Significant Family History: Heart Disease, Hypertension Family History: Completed stroke Hypertension Myocardial infarction Review of Systems-General Review of Systems Constitutional: see HPI; No chills, No fever; weakness EENTM: see HPI; No blurred vision, No throat pain Respiratory: No cough; short of breath (States some SOB at rest); No wheezing Cardiovascular: see HPI; No chest pain; edema; No syncope, No vascular heart diseas Gastrointestinal: No abdominal pain; dysphagia (Sometimes hard to swallow); No melena; nausea; No vomiting Genitourinary: No dysuria, No frequency, No hematuria Musculoskeletal: joint pain, joint swelling, muscle pain, muscle stiffness Skin: No change in color, No change in hair/nails Psychiatric/Neurological: Denies Anxiety, Denies Depressed; Seizure All Other Systems Reviewed Negative Unless Noted: Yes Reviewed Test Results Reviewed Test Results Lab Microbiology 06/13/20 MRSA Screen - Final, Complete MRSA not isolated Physical Exam Physical Exam Vital Signs Vital Signs - First Documented 06/13/20 06:15 Temp 37.0 Pulse 72 Resp 20 B/P (MAP) 147/71 (96) Pulse Ox 96 O2 Delivery Room Air Capillary Refill : Height, Weight, BMI Height: 5'2.00" Weight: 188lbs. 1.6oz. [id number]; 35.75 BMI Method:Stated General Appearance: No Apparent Distress, WD/WN, Chronically ill Eyes: Bilateral Eye Normal Inspection, Bilateral Eye PERRL, Bilateral Eye EOMI HEENT: PERRL/EOMI, Normal ENT Inspection, Pharynx Normal, Moist Mucous Membranes Neck: Full Range of Motion, Normal Inspection, Non Tender, Supple Respiratory: Chest Non Tender, Lungs Clear, Normal Breath Sounds, No Accessory Muscle Use, No Respiratory Distress Cardiovascular: Regular Rate, Rhythm, No Edema, No Gallop, No JVD, No Murmur Gastrointestinal: Normal Bowel Sounds, No Organomegaly, No Pulsatile Mass, Non Tender, Soft Back: Normal Inspection, No CVA Tenderness, No Vertebral Tenderness Extremity: No Calf Tenderness, Pedal Edema Neurologic/Psychiatric: Alert, Oriented x3, Normal Mood/Affect, bisque kiln drawer II-XII Norm as Tested, Abnormal Gait, Motor Weakness Skin: Normal Color, Warm/Dry A/P-Cardiology Admission Diagnosis Hyponatremia HTN Dyspnea HLP Assessment/Plan Generalized debility/weakness, continue with PT/OT Hyponatremia, improving, HCTZ discontinued, currently on fluid restriction Hypertension, poorly controlled, started on Norvasc today, continue to monitor. Increased dyspnea, Echocardiogram was done on October 02, 2019 showing normal LV size, EF 55-65 percent, grade 2 diastolic dysfunction, left atrium moderately dilated, moderate tricuspid regurgitation, PA pressure 45-[address] Zamudio, I will obtain CXR, evaluate 2D Echo Chronic lower extremity edema, patient reports worsening over the past month. I will diurese, continue with Michel wraps. Hyperlipidemia, monitor as outpatient. Mild bilateral carotid stenosis, last ultrasound was done in September 2019, continue to monitor Mild pulmonary hypertension, last echocardiogram was done in September 2019 showing PA pressure 40-45 mmHg. Continue to monitor Multiple risk factors for underlying coronary artery disease, last stress test done in September 2019 showing no significant ischemia. Continue to monitor GERD Thank you for allowing us to participate in the management of Ms. Nicolas. This is Bridget Shen PA-C, as a scribe for Dr. Valerio. Patient was seen and evaluated with Bridget, physical examination performed, I discussed the management plan and agree with the current scribe note 84-year-old lady with generalized debility and weakness receiving physical therapy Blood pressure is poorly controlled, started on Norvasc today Having dyspnea on exertion, last echo was done in September, repeat echo was of suboptimal quality, normal left ventricular function. Continue on diuretics with close monitoring to her hyponatremia Monitor blood pressure and pulmonary artery pressure BRIDGET VELASQUEZ Jun 19, 2020 12:29 pm MARIA ELENA VALERIO MD Jun 19, 2020 4:12 pm
--- NOTE | 2020-06-19 12:53 | Diagnostic Imaging Report ---
INDICATION: Shortness of breath Portable chest 12:43 PM Heart is mildly enlarged. Pulmonary vascularity is normal. Lungs are clear. There are no effusions or pneumothoraces. IMPRESSION: No acute abnormalities in the chest. Dictated by: Dictated on workstation # [id number]
--- NOTE | 2020-06-19 14:26 | Occupational Ther Daily Note ---
OT Current Status-Daily Note Subjective Pt. reports no pain but states that she is still SOA and feeling "weak." Agrees to work with therapy. Mental Status/Objective Patient Orientation: Person, Place, Time, Situation ADL-Treatment Therapy Code Descriptions/Definitions Functional [place] Measure: 0=Not Assessed/NA 4=Minimal Assistance 1=Total Assistance 5=Supervision or Setup 2=Maximal Assistance 6=Modified [place] 3=Moderate Assistance 7=Complete IndependenceSCALE: Activities may be completed with or without assistive devices. 1-Pshxhokmaf-sommhfm completes the activity by him/herself with no assistance from a helper. 5-Set-up or Clean-up Assistance-helper sets up or cleans up; patient completes activity. [place] assists only prior to or following the activity. 4-Supervision or Touching Assistance-helper provides verbal cues and/or touching/steadying and/or contact guard assistance as patient completes activity. Assistance may be provided throughout the activity or intermittently. 3-Partial/Moderate Assistance-helper does LESS THAN HALF the effort. [place] lifts, holds or supports trunk or limbs, but provides less than half the effort. 2-Substantial/Maximal Assistance-helper does MORE THAN HALF the effort. [place] lifts or holds trunk or limbs and provides more than half the effort. 7-Yfvjupjeu-zzfnqs does ALL the effort. Patient does none of the effort to complete the activity. Or, the assistance of 2 or more helpers is required for the patient to complete the activity. If activity was not attempted, code reason: 7-Patient Refused. 9-Not Applicable-not attempted and the patient did not perform the activity before the current illness, exacerbation or injury. 10-Not Attempted due to Environmental Limitations-(lack of equipment, weather restraints, etc.). 88-Not Attempted due to Medical Conditions or Safety Concerns. Eating (QC): 6 Upper Body Dressing (QC): 5 Lower Body Dressing (QC): 3 On/Off Footwear: 2 Toileting Hygiene (QC): 4 Toilet Transfer (QC): 4 Other Treatment Pt. seen for co-treatment with OT/PT due to poor activity tolerance and SOA. Pt's sats monitored and remain at 96-97% with activity. OT facilitates pt's ability to dress and toilet self, while PT works on pt's endurance to ambulate to toilet, transfer appropriately, and maintain sitting balance during dynamic ADL task. Pt with PT in room at end of OT treatment. All needs met. Education OT Patient Education: Correct positioning, Modified ADL techniques, Progress toward Goal/Update tx plan, Purpose of tx/functional activities, Reviewed pr ecautions, Rehab process, Transfer techniques Teaching Recipient: Patient Teaching Methods: Demonstration, Discussion Response to Teaching: Verbalize Understanding, Return Demonstration OT Short Term Goals Short Term Goals Time Frame: Jun 18, 2020 Eatin Oral hygiene: 5 Toileting hygiene: 4 Shower/bathe self: 4 Upper body dressin Lower body dressin (With AE) Putting on/taking off footwear: 4 (With AE) OT Usp Goals Usp Goals Time Frame: Jul 02, 2020 Eating (QC): 6 Oral Hygiene (QC): 6 Toileting Hygiene (QC): 6 Shower/Bathe Self (QC): 5 Upper Body Dressing (QC): 6 Lower Body Dressing (QC): 5 On/Off Footwear (QC): 5 (With AE) Additional Goals: 1-Demonstrate ADL Tasks, 2-Verbalize Understanding, 3- ImproveStrength/[place] 1=Demonstrate adherence to instructed precautions during ADL tasks. 2=Patient will verbalize/demonstrate understanding of assistive devices/modifications for ADL. 3=Patient will improve strength/tolerance for activity to enable patient to perform ADL's. OT Education/Plan Problem List/Assessment Assessment: Decreased Activ Tolerance, Impaired I ADL's, Impaired Self-Care Skills Discharge Recommendations Plan/Recommendations: Continue POC Therapy Discharge Recommendati: Post Acute OT Treatment Plan/Plan of Care Treatment,Training & Education: Yes Patient would benefit from OT for education, treatment and training to promote independence in ADL's, mobility, safety and/or upper extremity function for ADL's. Plan of Care: ADL Retraining, Functional Mobility, UE Funct Exercise/Act Treatment Duration: Jul 02, 2020 Frequency: At least 5 of 7 days/Wk (IRF) Estimated Hrs Per Day: 1.5 hours per day Agreement: Yes Rehab Potential: Good Time/GCodes Start Time: 11:00 Stop Time: 11:25 Total Time Billed (hr/min): 25 Billed Treatment Time 1, ADL x 2- Co-treatment with PT. Please see above note for designated roles. GLENNA DE PAZ OT Jun 19, 2020 14:26
--- NOTE | 2020-06-19 14:32 | Occupational Ther Daily Note ---
OT Current Status-Daily Note Subjective No pain reported. Mental Status/Objective Patient Orientation: Person, Place, Time, Situation ADL-Treatment Therapy Code Descriptions/Definitions Functional [place] Measure: 0=Not Assessed/NA 4=Minimal Assistance 1=Total Assistance 5=Supervision or Setup 2=Maximal Assistance 6=Modified [place] 3=Moderate Assistance 7=Complete IndependenceSCALE: Activities may be completed with or without assistive devices. 3-Hkemrekzza-aynhhmp completes the activity by him/herself with no assistance from a helper. 5-Set-up or Clean-up Assistance-helper sets up or cleans up; patient completes activity. [place] assists only prior to or following the activity. 4-Supervision or Touching Assistance-helper provides verbal cues and/or touching/steadying and/or contact guard assistance as patient completes activity. Assistance may be provided throughout the activity or intermittently. 3-Partial/Moderate Assistance-helper does LESS THAN HALF the effort. [place] lifts, holds or supports trunk or limbs, but provides less than half the effort. 2-Substantial/Maximal Assistance-helper does MORE THAN HALF the effort. [place] lifts or holds trunk or limbs and provides more than half the effort. 9-Mgwvnwxyy-skcxdu does ALL the effort. Patient does none of the effort to complete the activity. Or, the assistance of 2 or more helpers is required for the patient to complete the activity. If activity was not attempted, code reason: 7-Patient Refused. 9-Not Applicable-not attempted and the patient did not perform the activity before the current illness, exacerbation or injury. 10-Not Attempted due to Environmental Limitations-(lack of equipment, weather restraints, etc.). 88-Not Attempted due to Medical Conditions or Safety Concerns. Eating (QC): 6 Toileting Hygiene (QC): 4 Toilet Transfer (QC): 4 Other Treatment Pt. agrees to work with OT. Transferred supine-sit with SBA. Ambulated into bathroom and completed toileting task with SBA. Pt. ambulated to therapy gym and completed sera system, approximately 5 minutes, for increased UE endurance. Pt. also tolerated 5 exercises x 2lb. dumbbells, x 10 reps in all planes. Tolerated treatment well with increased rest breaks. Pt's sats maintained at 97%. Pt. ambulated throughout dining area, with rest breaks. Approximately 200 feet with walker and SBA. All needs met. PT came and took over session. Education OT Patient Education: Correct positioning, Exercise program, Modified ADL techniques, Progress toward Goal/Update tx plan, Purpose of tx/functional activities, Reviewed precautions, Rehab process Teaching Recipient: Patient Teaching Methods: Demonstration, Discussion Response to Teaching: Verbalize Understanding, Return Demonstration OT Short Term Goals Short Term Goals Time Frame: Jun 18, 2020 Eatin Oral hygiene: 5 Toileting hygiene: 4 Shower/bathe self: 4 Upper body dressin Lower body dressin (With AE) Putting on/taking off footwear: 4 (With AE) OT Fpc Goals Fpc Goals Time Frame: Jul 02, 2020 Eating (QC): 6 Oral Hygiene (QC): 6 Toileting Hygiene (QC): 6 Shower/Bathe Self (QC): 5 Upper Body Dressing (QC): 6 Lower Body Dressing (QC): 5 On/Off Footwear (QC): 5 (With AE) Additional Goals: 1-Demonstrate ADL Tasks, 2-Verbalize Understanding, 3-Imp roveStrength/Jasper 1=Demonstrate adherence to instructed precautions during ADL tasks. 2=Patient will verbalize/demonstrate understanding of assistive devices/modifications for ADL. 3=Patient will improve strength/tolerance for activity to enable patient to perform ADL's. OT Education/Plan Problem List/Assessment Assessment: Decreased Activ Tolerance, Impaired I ADL's, Impaired Self-Care Skills Discharge Recommendations Plan/Recommendations: Continue POC Therapy Discharge Recommendati: Home & Family, Post Acute OT Treatment Plan/Plan of Care Treatment,Training & Education: Yes Patient would benefit from OT for education, treatment and training to promote independence in ADL's, mobility, safety and/or upper extremity function for ADL's. Plan of Care: ADL Retraining, Functional Mobility, UE Funct Exercise/Act Treatment Duration: Jul 02, 2020 Frequency: At least 5 of 7 days/Wk (IRF) Estimated Hrs Per Day: 1.5 hours per day Agreement: Yes Rehab Potential: Good Time/GCodes Start Time: 13:00 Stop Time: 13:55 Total Time Billed (hr/min): 55 Billed Treatment Time 1, ADL x 15minutes, Ex x 15minutes, FA x 25minutes GLENNA DE PAZ OT Jun 19, 2020 14:32
--- NOTE | 2020-06-19 14:59 | Physical Therapy Daily Note ---
PT Daily Note-Current Subjective Pt sitting in Therapy Commons finishing OT tx upon arrival. Pt agrees to PT. Pain Location: No Pain Reported Mental Status Patient Orientation: Person, Place, Time, Situation Transfers SCALE: Activities may be completed with or without assistive devices. 7-Xcdvahtmkb-dbhbjnn completes the activity by him/herself with no assistance from a helper. 5-Set-up or Clean-up Assistance-helper sets up or cleans up; patient completes activity. [place] assists only prior to or following the activity. 4-Supervision or Touching Assistance-helper provides verbal cues and/or touching/steadying and/or contact guard assistance as patient completes activity. Assistance may be provided throughout the activity or intermittently. 3-Partial/Moderate Assistance-helper does LESS THAN HALF the effort. [place] lifts, holds or supports trunk or limbs, but provides less than half the effort. 2-Substantial/Maximal Assistance-helper does MORE THAN HALF the effort. [place] lifts or holds trunk or limbs and provides more than half the effort. 8-Uxyjmpfqp-qmifna does ALL the effort. Patient does none of the effort to complete the activity. Or, the assistance of 2 or more helpers is required for the patient to complete the activity. If activity was not attempted, code reason: 7-Patient Refused. 9-Not Applicable-not attempted and the patient did not perform the activity before the current illness, exacerbation or injury. 10-Not Attempted due to Environmental Limitations-(lack of equipment, weather restraints, etc.). 88-Not Attempted due to Medical Conditions or Safety Concerns. Sit to Stand (QC): 5 Toilet Transfer (QC): 5 Weight Bearing Right Lower Extremity: Right Full Weight Bearing Left Lower Extremity: Left Full Weight Bearing Gait Training Does the Patient Walk?: Yes Distance: 100' x2 Walk 10 feet (QC): 5 Walk 50 ft with 2 Turns(QC): 5 Gait Persons Needed: 1 Gait Assistive Device: FWW Wheelchair Training Does the Pt Use a Wheelchair?: No Treatments TF to standing, uses BR. After toileting, Pt amb. in hallway with RB as needed. Pt returns to recliner to rest at end of tx. All needs met, call light in hand. Assessment Current Status: Fair Progress Pt is limited by fatigue and SOA. Cardiologists is addressing health concerns at this time. PT Short Term Goals Short Term Goals Time Frame: Jun 18, 2020 Roll Left & Right: 6 Sit to lyin Lying to sitting on side of be: 5 Sit to stand: 5 Chair/fuh-we-htekk transfer: 5 Toilet transfer: 5 Car transfer: 5 Walk 10 feet: 5 Walk 50 feet with two turns: 5 Walk 150 feet: 5 Walking 10ft on uneven surface: 5 1 step (curb): 4 4 steps: 4 12 steps: 9 Picking up objects: 4 PT Fdc Goals Training Program Developer Goals PT Fdc Goals Time Frame: Jul 02, 2020 Roll Left & Right (QC): 6 Sit to Lying (QC): 6 Lying-Sitting on Side/Bed(QC): 6 Sit to Stand (QC): 6 Chair/Gtt-ls-Kpqon Xfer(QC): 6 Toilet Transfer (QC): 6 Car Transfer (QC): 6 Does the Patient Walk: Yes Walk 10 feet (QC): 6 Walk 50ft with 2 Turns (QC): 6 Walk 150 ft (QC): 6 Walking 10ft on Uneven Surface: 6 1 Step (curb) (QC): 6 4 Steps (QC): 5 12 Steps (QC): 9 Picking up an Object (QC): 5 Does the Pt use WC or Scooter?: No Wheel 50 feet with 2 turns (QC: 9 Type: N/A Wheel 150 feet: 9 Type: N/A PT Plan Problem List Problem List: Activity Tolerance, Gait Treatment/Plan Treatment Plan: Continue Plan of Care Treatment Plan: Bed Mobility, Concurrent Therapy, Education, Functional Activity [place], Functional Strength, Group Therapy, Gait, Safety, Therapeutic Exercise, Transfers Treatment Duration: Jul 02, 2020 Frequency: At least 5 of 7 days/Wk (IRF) Estimated Hrs Per Day: 1.5 hours per day Patient and/or Family Agrees t: Yes Safety Risks/Education Patient Education: Gait Training, Correct Positioning Teaching Recipient: Patient Teaching Methods: Discussion Response to Teaching: Verbalize Understanding Time/GCodes Time In: 1400 Time Out: 1430 Total Billed Treatment Time: 30 Total Billed Treatment 1, GT (15m) & FA (15m) JAZMIN RODRÍGUEZ PAVER LAYER Jun 19, 2020 14:59
[2020-06-19 17:59] VITALS: BP 149/64
[2020-06-19] MEDS: PANTOPRAZOLE 40 MG (PROTONIX) TAB PO SCH (19:30)
[2020-06-19 20:30] VITALS: BP 124/66
[2020-06-19] MEDS: MIRTAZAPINE 15 MG (REMERON) TAB PO SCH (21:10)
[2020-06-19] MEDS: MELATONIN 3 MG TABLET PO PRN (21:13)
[2020-06-20 03:35] LABS: BASOPHILS % (AUTO) 1 % (0-10); EOSINOPHILS # (AUTO) 0.4 10^3/uL (0.0-0.3); EOSINOPHILS % (AUTO) 5 % (0-10); HEMATOCRIT 33 % (35-52); HEMOGLOBIN 11.1 g/dL (11.5-16.0); LYMPHOCYTES # (AUTO) 1.2 10^3/uL (1.0-4.0); LYMPHOCYTES % (AUTO) 17 % (12-44); MEAN CORPUSCULAR HEMOGLOBIN 31 pg (25-34); MEAN CORPUSCULAR HGB CONC 34 g/dL (32-36); MEAN CORPUSCULAR VOLUME 90 fL (80-99); MEAN PLATELET VOLUME 9.6 fL (9.0-12.2); MONOCYTES # (AUTO) 0.8 10^3/uL (0.0-1.0); MONOCYTES % (AUTO) 11 % (0-12); NEUTROPHILS # (AUTO) 4.8 10^3/uL (1.8-7.8); NEUTROPHILS % (AUTO) 66 % (42-75); PLATELET COUNT 211 10^3/uL (130-400); WHITE BLOOD COUNT 7.3 10^3/uL (4.3-11.0)
[2020-06-20 03:56] LABS: ALANINE AMINOTRANSFERASE 10 U/L (0-55); ALBUMIN 2.8 GM/DL (3.2-4.5); ALKALINE PHOSPHATASE 65 U/L (40-136); BILIRUBIN,TOTAL 0.6 MG/DL (0.1-1.0); BUN/CREATININE RATIO 11; CARBON DIOXIDE 24 MMOL/L (21-32); CHLORIDE 100 MMOL/L (98-107); CREATININE SERUM 0.73 MG/DL (0.60-1.30); GFR ESTIMATED > 60; GLUCOSE 108 MG/DL (70-105); POTASSIUM 3.7 MMOL/L (3.6-5.0); SODIUM 133 MMOL/L (135-145); TOTAL PROTEIN 5.4 GM/DL (6.4-8.2)
[2020-06-20] MEDS: METOCLOPRAMIDE 5 MG (REGLAN) TAB PO SCH ×2 (05:39→17:08)
[2020-06-20 05:48] VITALS: BP 163/86
--- NOTE | 2020-06-20 05:52 | PM&R Progress Note ---
Subjective HPI/CC On Admission Date Seen by Provider: Jun 20, 2020 Time Seen by Provider: 10:30 Subjective/Events-last exam 06/20/20: Pt doing a lot better but SOB BNP is elevated at 291 CXR is negative Sodium level 133 BP okay but is labile Breast excoriation will be managed with Micanozol Powder Reaching out to Dr Valerio regarding diuretic 06/19/20: Pt doing okay Having a little SOB and some edema so need to consult Dr. Valerio Amlodipine will be started at 5 mg Wheezing a bit so will initiate IS Had some loose stools today 06/18/20: Pt doing pretty well but concerned about her sodium level Considering I stopped the hydrochlorothiazide she is probably at baseline 132-1 33 although she would want to try the fluid restriction and sodium tablet so we will do that Ambulating around doing well Bowels moved yesterday Overall pretty tired 06/17/20: Pt doing much better Less dysphasia Sodium level of 132 Loose stools continue Overall much better 06/16/20: Patient doing well today Noted constipation EGD discussed BP varies and it makes her nervous 06/15/20: Patient feels better EGD yesterday No complaints Son visited today 06/14/20: Doing well EGD reviewed Feels better BM yesterday 06/13/20: Patient doing well No issues Had her COVID vaccine 2nd dose 05/11/20 Coughed on Lactulose so initiated IS No pain reported 06/12/20: Pt doing really well today Sodium level up at 133 Ordered Reglan BID the way she takes it Podiatry consult initiated Bowels moved yesterday Review of Systems General: Fatigue, Malaise Pulmonary: Dyspnea Cardiovascular: Edema Neurological: Weakness Objective Exam Vital Signs Vital Signs Date Time Temp Pulse Resp B/P (MAP) Pulse Ox O2 Delivery O2 Flow Rate FiO2 06/21/20 05:05 36.6 88 16 178/74 (108) 93 Room Air Capillary Refill : General Appearance: No Apparent Distress, WD/WN, Chronically ill HEENT: PERRL/EOMI, Normal ENT Inspection, Pharynx Normal, Moist Mucous Membranes, Other (poor dentition) Neck: Full Range of Motion, Normal Inspection, Non Tender, Supple Respiratory: Chest Non Tender, Lungs Clear, Normal Breath Sounds, No Accessory Muscle Use, No Respiratory Distress Cardiovascular: Regular Rate, Rhythm, No Gallop, No JVD, No Murmur Gastrointestinal: Normal Bowel Sounds, No Organomegaly, No Pulsatile Mass, Non Tender, Soft Back: Normal Inspection, No CVA Tenderness, No Vertebral Tenderness Extremity: Normal Capillary Refill, Normal Range of Motion, Non Tender, No Calf Tenderness, Pedal Edema Neurologic/Psychiatric: Alert, Oriented x3, Normal Mood/Affect, hydramatic mechanic II-XII Norm as Tested, Abnormal Gait, Motor Weakness Skin: Normal Color, Warm/Dry Results/Procedures Lab Patient resulted labs reviewed. FIM Transfers Therapy Code Descriptions/Definitions Functional [place] Measure: 0=Not Assessed/NA 4=Minimal Assistance 1=Total Assistance 5=Supervision or Setup 2=Maximal Assistance 6=Modified [place] 3=Moderate Assistance 7=Complete IndependenceSCALE: Activities may be completed with or without assistive devices. 6-Bpcznymhyx-vrshbcd completes the activity by him/herself with no assistance from a helper. 5-Set-up or Clean-up Assistance-helper sets up or cleans up; patient completes activity. [place] assists only prior to or following the activity. 4-Supervision or Touching Assistance-helper provides verbal cues and/or touching/steadying and/or contact guard assistance as patient completes activity. Assistance may be provided throughout the activity or intermittently. 3-Partial/Moderate Assistance-helper does LESS THAN HALF the effort. [place] lifts, holds or supports trunk or limbs, but provides less than half the effort. 2-Substantial/Maximal Assistance-helper does MORE THAN HALF the effort. [place] lifts or holds trunk or limbs and provides more than half the effort. 4-Msicbgxty-bvcsfy does ALL the effort. Patient does none of the effort to complete the activity. Or, the assistance of 2 or more helpers is required for the patient to complete the activity. If activity was not attempted, code reason: 7-Patient Refused. 9-Not Applicable-not attempted and the patient did not perform the activity before the current illness, exacerbation or injury. 10-Not Attempted due to Environmental Limitations-(lack of equipment, weather restraints, etc.). 88-Not Attempted due to Medical Conditions or Safety Concerns. Roll Left to Right (QC): 4 Sit to Lying (QC): 4 Sit to Stand (QC): 5 Chair/Lah-id-Yapja Xfer(QC): 5 Car Transfer (QC): 4 Gait Training Does the Patient Walk?: Yes Distance: 100' x2 Walk 10 feet (QC): 5 Walk 50 ft with 2 Turns(QC): 5 Walk 150 ft (QC): 5 Walking 10ft/uneven surface-QC: 4 Gait Persons Needed: 1 Gait Assistive Device: FWW Wheelchair Training Does the Pt Use a Wheelchair?: No Wheel 50 ft with 2 turns (QC): 9 Wheel 150 ft (QC): 9 Stair Training 1 Step (curb) (QC): 3 4 Steps (QC): 88 12 Steps (QC): 9 Balance Picking up an Object (QC): 88 ADL-Treatment Eating (QC): 6 Oral Hygiene (QC): 6 Shower/Bathe Self (QC): 4 Upper Body Dressing (QC): 5 Lower Body Dressing (QC): 3 On/Off Footwear (QC): 2 Toileting Hygiene (QC): 4 Toilet Transfer (QC): 4 Assessment/Plan Assessment and Plan Assess & Plan/Chief Complaint Assessment: Debility Hyponatremia holding HCTZ Severe weakness Dysphagia with gastric ulcers in the past on EGD and EGD revealed gastritis on EGD per Dr Astorga 06/14/20 HTN GERD Glaucoma Gastroparesis Edema legs Plan: Monitor closely Check labs Home meds 06/12/20: Monitor closely Hold HCTZ Monitor BP 06/13/20: Monitor BP Monitor for pain 06/14/20: Appreciate Dr Astorga for EGD Monitor closely 06/15/20: Monitor dysphagia Monitor for falls 06/16/20: Monitor dysphagia BP ok Supp if needed 06/17/20: Monitor sodium level Monitor dysphagia 06/18/20: Salt tablets and fluid restriction Monitor closely 06/19/20: Dr Valerio consult [facility] 5mg Edema management Fluid restriction with salt tablets 06/20/20: Diuretic per Cardiology Fluid restriction Monitor closely (1) Debility (2) Generalized weakness Status: Acute (3) Hyponatremia Status: Acute (4) Electrolyte abnormality (5) Essential (primary) hypertension Status: Chronic MARKO ANDERS DO Jun 20, 2020 05:52
--- NOTE | 2020-06-20 08:40 | Cardiology Progress Note ---
Subjective Date Seen by Provider: Jun 20, 2020 Time Seen by Provider: 08:00 Subjective/Events-last exam Patient sitting up in chair, no new complaints. Review of Systems General: No Chills, No Night Sweats; Fatigue, Malaise; No Appetite, No Other HEENT: No Head Aches, No Visual Changes, No Eye Pain, No Ear Pain, No Dysphasia, No Sinus Congestion, No Post Nasal Drip, No Sore Throat, No Other Pulmonary: Dyspnea; No Cough, No Pleuritic Chest Pain, No Other Cardiovascular: Edema; No: Chest Pain, Palpitations, Orthopnea, Paroxysmal Noc. Dyspnea, Lt Headedness, Other Objective-Cardiology Exam Last Set of Vital Signs Vital Signs 06/20/20 06/20/20 06/20/20 05:48 09:00 09:03 Temp 36.4 Pulse 74 Resp 19 B/P (MAP) 138/63 (88) Pulse Ox 93 O2 Delivery Room Air Capillary Refill : I&O Intake and Output 06/20/20 00:00 Intake Total 760 ml Balance 760 ml Intake Oral 760 ml # Voids 9 # Bowel Movements 2 General: Alert, Oriented X3, Cooperative HEENT: Atraumatic, PERRLA Neck: Supple, No JVD, No Thyromegaly Lungs: Clear to Auscultation, Normal Air Movement Heart: Regular Rate, Normal S1, Normal S2, No Murmurs Abdomen: Normal Bowel Sounds, Soft, No Tenderness, No Hepatosplenomegaly, No Masses Extremities: Other (+1 edema BLE) Skin: No Rashes Neuro: Normal Gait, Cranial Nerves 3-12 NL Psych/Mental Status: Mental Status NL, Mood NL Results Lab Laboratory Tests 06/20/20 03:07 A/P-Cardiology Admission Diagnosis Hyponatremia HTN Dyspnea HLP Assessment/Plan Generalized debility/weakness, continue with PT/OT Hyponatremia, improving, HCTZ discontinued, currently on fluid restriction Hypertension, poorly controlled, started on Norvasc today, continue to monitor. Increased dyspnea, Echocardiogram was done on 06/19/2020 showing normal LV size, EF 55-65 percent, grade 2 diastolic dysfunction, left atrium moderately dilated. Chronic lower extremity edema, patient reports worsening over the past month. I will diurese, continue with Michel wraps. Hyperlipidemia, monitor as outpatient. Mild bilateral carotid stenosis, last ultrasound was done in September 2019, continue to monitor Mild pulmonary hypertension, last echocardiogram was done in September 2019 showing PA pressure 40-45 mmHg. Continue to monitor Multiple risk factors for underlying coronary artery disease, last stress test done in September 2019 showing no significant ischemia. Continue to monitor GERD Patient was seen and evaluated with Bridget, examination performed, management plan was discussed, agree with the current scribed note, I made few changes to the note using Italic font Patient was seen and evaluated, discussed the management plan with Dr. Shafer, patient has a history of hyponatremia, hydrochlorothiazide was discontinued. I will start her on Lasix 20 mg daily and evaluate tolerance and response Continue to monitor blood pressure Regarding her dyspnea she was started on Lasix and will evaluate response Supervisory-Addendum Brief Supervisory Addendum Participated in pt care: history, MDM, physical Personally performed: exam, history, MDM Care discussed with: BRIDGET GAMBINO Jun 20, 2020 08:40 MARIA ELENA DUDLEY MD Jun 20, 2020 13:10
[2020-06-20 09:03] VITALS: BP 138/63
[2020-06-20] MEDS: ASPIRIN E.C. 81 MG (ECOTRIN) TAB PO SCH (09:05)
[2020-06-20] MEDS: CARVEDILOL 12.5 MG (COREG) TABLET PO SCH ×2 (09:05→19:46)
[2020-06-20] MEDS: amLODIPine 5 MG (NORVASC) TAB PO SCH (09:06)
[2020-06-20] MEDS: lisINopril 20 MG (PRINIVIL) TABLET PO SCH (09:06)
[2020-06-20] MEDS: SODIUM CHLORIDE 1 GM TABLET PO SCH ×2 (09:07→19:45)
[2020-06-20] MEDS: TIMOLOL MALEATE 0.5% 5 ML (TIMOPTIC) BTL OS SCH ×2 (09:07→19:45)
[2020-06-20] MEDS: DOCUSATE SODIUM 100 MG (COLACE) CAP PO SCH ×2 (09:07→19:28)
[2020-06-20] MEDS: BETAMETHASONE/CLOTRIM CREAM (LOTRISONE) 45 GM TP SCH ×2 (09:08→19:29)
[2020-06-20] MEDS: SENNA W/DOCUSATE (SENOKOT S) TABLET PO SCH ×2 (09:08→19:28)
[2020-06-20] MEDS: polyethylene glycoL POWDER 17 GM (MIRALAX) PACK PO SCH ×2 (09:08→19:28)
[2020-06-20] MEDS: CLOTRIMAZOLE 1% CREAM (LOTRIMIN) 30 GM TOP SCH ×2 (09:08→18:58)
--- NOTE | 2020-06-20 10:27 | Physical Therapy Daily Note ---
PT Daily Note-Current Subjective Pt sitting in recliner upon arrival. Pt agrees to PT. Pain Location: No Pain Reported Mental Status Patient Orientation: Person, Place, Time, Situation Attachments: Other-See Comments (PRINCESS WIGGINS) Transfers SCALE: Activities may be completed with or without assistive devices. 6-Bwwedduqbs-ofjyvtg completes the activity by him/herself with no assistance from a helper. 5-Set-up or Clean-up Assistance-helper sets up or cleans up; patient completes activity. [place] assists only prior to or following the activity. 4-Supervision or Touching Assistance-helper provides verbal cues and/or touching/steadying and/or contact guard assistance as patient completes activity. Assistance may be provided throughout the activity or intermittently. 3-Partial/Moderate Assistance-helper does LESS THAN HALF the effort. [place] lifts, holds or supports trunk or limbs, but provides less than half the effort. 2-Substantial/Maximal Assistance-helper does MORE THAN HALF the effort. [place] lifts or holds trunk or limbs and provides more than half the effort. 7-Hdkrnlyjs-wcqmgd does ALL the effort. Patient does none of the effort to complete the activity. Or, the assistance of 2 or more helpers is required for the patient to complete the activity. If activity was not attempted, code reason: 7-Patient Refused. 9-Not Applicable-not attempted and the patient did not perform the activity before the current illness, exacerbation or injury. 10-Not Attempted due to Environmental Limitations-(lack of equipment, weather restraints, etc.). 88-Not Attempted due to Medical Conditions or Safety Concerns. Sit to Stand (QC): 5 Toilet Transfer (QC): 5 Weight Bearing Right Lower Extremity: Right Full Weight Bearing Left Lower Extremity: Left Full Weight Bearing Gait Training Does the Patient Walk?: Yes Distance: 100' x2 Walk 10 feet (QC): 5 Walk 50 ft with 2 Turns(QC): 5 Walk 150 ft (QC): 5 Gait Persons Needed: 1 Gait Assistive Device: FWW Wheelchair Training Does the Pt Use a Wheelchair?: No Exercises Seated Therapy Exercises: Ankle pumps, Long arc quads, Hip flexion, Kicking activity, Glut set Seated Reps: 15 NuStep Minutes: 15 NuStep Workload: 5 Treatments TF to standing and uses BR before leaving room. Amb. in hallway using FWW and completes Seated EX. Pt uses NuStep followed by short RB. Amb. in hallway, returning to room to rest in recliner at end of tx. All needs met, call light in hand. Assessment Current Status: Good Progress Pt still fatiguing after exertion of energy. Pt will appear SOA, rest break to recover. PT Short Term Goals Short Term Goals Time Frame: Jun 18, 2020 Roll Left & Right: 6 Sit to lyin Lying to sitting on side of be: 5 Sit to stand: 5 Chair/gvw-nn-uqsao transfer: 5 Toilet transfer: 5 Car transfer: 5 Walk 10 feet: 5 Walk 50 feet with two turns: 5 Walk 150 feet: 5 Walking 10ft on uneven surface: 5 1 step (curb): 4 4 steps: 4 12 steps: 9 Picking up objects: 4 PT [facility] Goals Program Manager Transportation Goals PT [facility] Goals Time Frame: Jul 02, 2020 Roll Left & Right (QC): 6 Sit to Lying (QC): 6 Lying-Sitting on Side/Bed(QC): 6 Sit to Stand (QC): 6 Chair/Wmv-pv-Uplwv Xfer(QC): 6 Toilet Transfer (QC): 6 Car Transfer (QC): 6 Does the Patient Walk: Yes Walk 10 feet (QC): 6 Walk 50ft with 2 Turns (QC): 6 Walk 150 ft (QC): 6 Walking 10ft on Uneven Surface: 6 1 Step (curb) (QC): 6 4 Steps (QC): 5 12 Steps (QC): 9 Picking up an Object (QC): 5 Does the Pt use WC or Scooter?: No Wheel 50 feet with 2 turns (QC: 9 Type: N/A Wheel 150 feet: 9 Type: N/A PT Plan Problem List Problem List: Activity Tolerance, Functional Strength Treatment/Plan Treatment Plan: Continue Plan of Care Treatment Plan: Bed Mobility, Concurrent Therapy, Education, Functional Activity [place], Functional Strength, Group Therapy, Gait, Safety, Therapeutic Exercise, Transfers Treatment Duration: Jul 02, 2020 Frequency: At least 5 of 7 days/Wk (IRF) Estimated Hrs Per Day: 1.5 hours per day Patient and/or Family Agrees t: Yes Safety Risks/Education Patient Education: Correct Positioning, Safety Issues Teaching Recipient: Patient Teaching Methods: Discussion Response to Teaching: Verbalize Understanding Time/GCodes Time In: 915 Time Out: 1015 Total Billed Treatment Time: 60 Total Billed Treatment 1, GT (15m), EX x2 (30m) & FA (15m) JAZMIN RODRÍGUEZ AGRICULTURAL [employer]OR CAMP MANAGER Jun 20, 2020 10:27
--- NOTE | 2020-06-20 11:14 | Occupational Ther Daily Note ---
OT Current Status-Daily Note Subjective No pain reported. Pt. states that she is feeling better than she did yesterday. Appearance Pt. up in chair asleep. Pt. awakes easily and agrees to work with OT. Mental Status/Objective Patient Orientation: Person, Place, Time, Situation ADL-Treatment Therapy Code Descriptions/Definitions Functional [place] Measure: 0=Not Assessed/NA 4=Minimal Assistance 1=Total Assistance 5=Supervision or Setup 2=Maximal Assistance 6=Modified [place] 3=Moderate Assistance 7=Complete IndependenceSCALE: Activities may be completed with or without assistive devices. 3-Zozyitxouh-dhvkwoj completes the activity by him/herself with no assistance from a helper. 5-Set-up or Clean-up Assistance-helper sets up or cleans up; patient completes activity. [place] assists only prior to or following the activity. 4-Supervision or Touching Assistance-helper provides verbal cues and/or touching/steadying and/or contact guard assistance as patient completes activity. Assistance may be provided throughout the activity or intermittently. 3-Partial/Moderate Assistance-helper does LESS THAN HALF the effort. [place] lifts, holds or supports trunk or limbs, but provides less than half the effort. 2-Substantial/Maximal Assistance-helper does MORE THAN HALF the effort. [place] lifts or holds trunk or limbs and provides more than half the effort. 0-Aopvvorrk-sfperd does ALL the effort. Patient does none of the effort to co mplete the activity. Or, the assistance of 2 or more helpers is required for the patient to complete the activity. If activity was not attempted, code reason: 7-Patient Refused. 9-Not Applicable-not attempted and the patient did not perform the activity before the current illness, exacerbation or injury. 10-Not Attempted due to Environmental Limitations-(lack of equipment, weather restraints, etc.). 88-Not Attempted due to Medical Conditions or Safety Concerns. Eating (QC): 6 Oral Hygiene (QC): 4 (SBA standing at sink to brush teeth.) Shower/Bathe Self (QC): 7 (Pt. declines showering as she was incontinent last night, and cleansed self already.) Upper Body Dressing (QC): 5 Lower Body Dressing (QC): 3 (Mod assist. Pt. required assistance to don pants over feet, but is able to rib puller pants in stance.) On/Off Footwear: 2 Toileting Hygiene (QC): 4 Toilet Transfer (QC): 4 Other Treatment Pt. agrees to work with OT. Pt. ambulates with walker and SBA to bathroom to toilet and brush teeth, but sits in chair to dress. OT completes gentle retrograde massage to bilateral LE for swelling, and wraps bilateral LE in PRINCESS wraps. Tolerated well. All needs met up in chair. Education OT Patient Education: Correct positioning, Modified ADL techniques, Progress toward Goal/Update tx plan, Purpose of tx/functional activities, Reviewed precautions, Rehab process, Transfer techniques Teaching Recipient: Patient Teaching Methods: Demonstration, Discussion Response to Teaching: Verbalize Understanding, Return Demonstration OT Short Term Goals Short Term Goals Time Frame: Jun 18, 2020 Eatin Oral hygiene: 5 Toileting hygiene: 4 Shower/bathe self: 4 Upper body dressin Lower body dressin (With AE) Putting on/taking off footwear: 4 (With AE) OT Heel Molder Goals Alf Goals Time Frame: Jul 02, 2020 Eating (QC): 6 Oral Hygiene (QC): 6 Toileting Hygiene (QC): 6 Shower/Bathe Self (QC): 5 Upper Body Dressing (QC): 6 Lower Body Dressing (QC): 5 On/Off Footwear (QC): 5 (With AE) Additional Goals: 1-Demonstrate ADL Tasks, 2-Verbalize Understanding, 3-ImproveStrength/[place] 1=Demonstrate adherence to instructed precautions during ADL tasks. 2=Patient will verbalize/demonstrate understanding of assistive devices/modifications for ADL. 3=Patient will improve strength/tolerance for activity to enable patient to perform ADL's. OT Education/Plan Problem List/Assessment Assessment: Decreased Activ Tolerance, Impaired I ADL's, Impaired Self-Care Skills Discharge Recommendations Plan/Recommendations: Continue POC Therapy Discharge Recommendati: Home & Family, Post Acute OT Treatment Plan/Plan of Care Treatment,Training & Education: Yes Patient would benefit from OT for education, treatment and training to promote independence in ADL's, mobility, safety and/or upper extremity function for ADL's. Plan of Care: ADL Retraining, Functional Mobility, UE Funct Exercise/Act Treatment Duration: Jul 02, 2020 Frequency: At least 5 of 7 days/Wk (IRF) Estimated Hrs Per Day: 1.5 hours per day Agreement: Yes Rehab Potential: Good Time/GCodes Start Time: 08:15 Stop Time: 09:15 Total Time Billed (hr/min): 60 Billed Treatment Time 1, ADL x 4 GLENNA DE PAZ OT Jun 20, 2020 11:14
--- NOTE | 2020-06-20 14:01 | Occupational Ther Daily Note ---
OT Current Status-Daily Note Subjective No pain reported. Mental Status/Objective Patient Orientation: Person, Place, Time, Situation ADL-Treatment Therapy Code Descriptions/Definitions Functional [place] Measure: 0=Not Assessed/NA 4=Minimal Assistance 1=Total Assistance 5=Supervision or Setup 2=Maximal Assistance 6=Modified [place] 3=Moderate Assistance 7=Complete IndependenceSCALE: Activities may be completed with or without assistive devices. 8-Mkallttfok-ivnvsri completes the activity by him/herself with no assistance from a helper. 5-Set-up or Clean-up Assistance-helper sets up or cleans up; patient completes activity. [place] assists only prior to or following the activity. 4-Supervision or Touching Assistance-helper provides verbal cues and/or touching/steadying and/or contact guard assistance as patient completes activity. Assistance may be provided throughout the activity or intermittently. 3-Partial/Moderate Assistance-helper does LESS THAN HALF the effort. [place] lifts, holds or supports trunk or limbs, but provides less than half the effort. 2-Substantial/Maximal Assistance-helper does MORE THAN HALF the effort. [place] lifts or holds trunk or limbs and provides more than half the effort. 5-Fqpursosy-vmumqu does ALL the effort. Patient does none of the effort to complete the activity. Or, the assistance of 2 or more helpers is required for the patient to complete the activity. If activity was not attempted, code reason: 7-Patient Refused. 9-Not Applicable-not attempted and the patient did not perform the activity before the current illness, exacerbation or injury. 10-Not Attempted due to Environmental Limitations-(lack of equipment, weather restraints, etc.). 88-Not Attempted due to Medical Conditions or Safety Concerns. Eating (QC): 6 Other Treatment Pt. seen this date for strengthening. Pt. ambulated with walker to toilet. Completed toileting task with Mod I. Ambulated to therapy gym and completed arm bike x 10 minutes at mod resistance to increase overall endurance and strength. Tolerated treatment well. Ambulated back to room with SBA and walker. All needs met. Education OT Patient Education: Correct positioning, Modified ADL techniques, Progress toward Goal/Update tx plan, Purpose of tx/functional activities, Reviewed precautions, Rehab process, Transfer techniques Teaching Recipient: Patient Teaching Methods: Demonstration, Discussion Response to Teaching: Verbalize Understanding, Return Demonstration OT Short Term Goals Short Term Goals Time Frame: Jun 18, 2020 Eatin Oral hygiene: 5 Toileting hygiene: 4 Shower/bathe self: 4 Upper body dressin Lower body dressin (With AE) Putting on/taking off footwear: 4 (With AE) OT Inspector Handbag Frames Goals [facility] Goals Time Frame: Jul 02, 2020 Eating (QC): 6 Oral Hygiene (QC): 6 Toileting Hygiene (QC): 6 Shower/Bathe Self (QC): 5 Upper Body Dressing (QC): 6 Lower Body Dressing (QC): 5 On/Off Footwear (QC): 5 (With AE) Additional Goals: 1-Demonstrate ADL Tasks, 2-Verbalize Understanding, 3- ImproveStrength/[place] 1=Demonstrate adherence to instructed precautions during ADL tasks. 2=Patient will verbalize/demonstrate understanding of assistive devices/modifications for ADL. 3=Patient will improve strength/tolerance for activity to enable patient to perform ADL's. OT Education/Plan Problem List/Assessment Assessment: Decreased Activ Tolerance Discharge Recommendations Plan/Recommendations: Continue POC Treatment Plan/Plan of Care Treatment,Training & Education: Yes Patient would benefit from OT for education, treatment and training to promote independence in ADL's, mobility, safety and/or upper extremity function for ADL's. Plan of Care: ADL Retraining, Functional Mobility, UE Funct Exercise/Act Treatment Duration: Jul 02, 2020 Frequency: At least 5 of 7 days/Wk (IRF) Estimated Hrs Per Day: 1.5 hours per day Agreement: Yes Rehab Potential: Good Time/GCodes Start Time: 13:00 Stop Time: 13:30 Total Time Billed (hr/min): 30 Billed Treatment Time 1, ADL x 15minutes, Ex x 15minutes GLENNA DE PAZ OT Jun 20, 2020 14:01
[2020-06-20] MEDS: FUROSEMIDE 20 MG (LASIX) TAB PO SCH (14:08)
--- NOTE | 2020-06-20 15:25 | Physical Therapy Daily Note ---
PT Daily Note-Current Subjective Pt sitting in recliner upon arrival. Pt agrees to PT. Nurse gives Lasix at beginning of afternoon tx. Pain Location: No Pain Reported Mental Status Patient Orientation: Person, Place, Time, Situation Attachments: Other-See Comments (PRINCESS daviesap for B LE) Transfers SCALE: Activities may be completed with or without assistive devices. 7-Luascqmzrs-dcbjzut completes the activity by him/herself with no assistance from a helper. 5-Set-up or Clean-up Assistance-helper sets up or cleans up; patient completes activity. [place] assists only prior to or following the activity. 4-Supervision or Touching Assistance-helper provides verbal cues and/or touching/steadying and/or contact guard assistance as patient completes activity. Assistance may be provided throughout the activity or intermittently. 3-Partial/Moderate Assistance-helper does LESS THAN HALF the effort. [place] lifts, holds or supports trunk or limbs, but provides less than half the effort. 2-Substantial/Maximal Assistance-helper does MORE THAN HALF the effort. [place] lifts or holds trunk or limbs and provides more than half the effort. 8-Oaflogpdi-aiwjkr does ALL the effort. Patient does none of the effort to complete the activity. Or, the assistance of 2 or more helpers is required for the patient to complete the activity. If activity was not attempted, code reason: 7-Patient Refused. 9-Not Applicable-not attempted and the patient did not perform the activity before the current illness, exacerbation or injury. 10-Not Attempted due to Environmental Limitations-(lack of equipment, weather restraints, etc.). 88-Not Attempted due to Medical Conditions or Safety Concerns. Sit to Stand (QC): 5 Toilet Transfer (QC): 5 Weight Bearing Right Lower Extremity: Right Full Weight Bearing Left Lower Extremity: Left Full Weight Bearing Gait Training Does the Patient Walk?: Yes Distance: 100' x2 Walk 10 feet (QC): 5 Walk 50 ft with 2 Turns(QC): 5 Walk 150 ft (QC): 5 Gait Persons Needed: 1 Gait Assistive Device: FWW Wheelchair Training Does the Pt Use a Wheelchair?: No Exercises Standing: Hip Abduction, Hamstring curls, Heel/toe raises, Marching, Mini squats, Sit to Stand Standing Reps: 15 Treatments TF to standing and amb. in hallway. Pt completes Standing EX at //bar before returning to room to use BR. Assessment Current Status: Good Progress Pt fatigues by end of tx. PT Short Term Goals Short Term Goals Time Frame: Jun 18, 2020 Roll Left & Right: 6 Sit to lyin Lying to sitting on side of be: 5 Sit to stand: 5 Chair/haz-jh-jbykl transfer: 5 Toilet transfer: 5 Car transfer: 5 Walk 10 feet: 5 Walk 50 feet with two turns: 5 Walk 150 feet: 5 Walking 10ft on uneven surface: 5 1 step (curb): 4 4 steps: 4 12 steps: 9 Picking up objects: 4 PT Senior Application Programmer Goals Assisted Goals PT Assisted Goals Time Frame: Jul 02, 2020 Roll Left & Right (QC): 6 Sit to Lying (QC): 6 Lying-Sitting on Side/Bed(QC): 6 Sit to Stand (QC): 6 Chair/Pff-fn-Ezsub Xfer(QC): 6 Toilet Transfer (QC): 6 Car Transfer (QC): 6 Does the Patient Walk: Yes Walk 10 feet (QC): 6 Walk 50ft with 2 Turns (QC): 6 Walk 150 ft (QC): 6 Walking 10ft on Uneven Surface: 6 1 Step (curb) (QC): 6 4 Steps (QC): 5 12 Steps (QC): 9 Picking up an Object (QC): 5 Does the Pt use WC or Scooter?: No Wheel 50 feet with 2 turns (QC: 9 Type: N/A Wheel 150 feet: 9 Type: N/A PT Plan Problem List Problem List: Activity Tolerance, Functional Strength Treatment/Plan Treatment Plan: Continue Plan of Care Treatment Plan: Bed Mobility, Concurrent Therapy, Education, Functional Activity [place], Functional Strength, Group Therapy, Gait, Safety, Therapeutic Exercise, Transfers Treatment Duration: Jul 02, 2020 Frequency: At least 5 of 7 days/Wk (IRF) Estimated Hrs Per Day: 1.5 hours per day Patient and/or Family Agrees t: Yes Safety Risks/Education Patient Education: Correct Positioning, Safety Issues Teaching Recipient: Patient Teaching Methods: Discussion Response to Teaching: Verbalize Understanding Time/GCodes Time In: 1400 Time Out: 1430 Total Billed Treatment Time: 30 Total Billed Treatment 1, GT (15m) & EX (15m) JAZMIN RODRÍGUEZ BACTERIOLOGIST PHARMACEUTICAL Jun 20, 2020 15:25
[2020-06-20 16:00] VITALS: BP 158/67
[2020-06-20] MEDS: MICONAZOLE 2% POWDER (DESENEX AF) 90 GM TOP SCH (18:58)
[2020-06-20] MEDS: PANTOPRAZOLE 40 MG (PROTONIX) TAB PO SCH (19:00)
[2020-06-20] MEDS: MIRTAZAPINE 15 MG (REMERON) TAB PO SCH (19:46)
[2020-06-20] MEDS: MELATONIN 3 MG TABLET PO PRN (19:46)
[2020-06-21 05:05] VITALS: BP 178/74
[2020-06-21] MEDS: METOCLOPRAMIDE 5 MG (REGLAN) TAB PO SCH ×2 (06:29→17:28)
[2020-06-21] MEDS: DOCUSATE SODIUM 100 MG (COLACE) CAP PO SCH ×2 (08:15→21:01)
[2020-06-21] MEDS: SENNA W/DOCUSATE (SENOKOT S) TABLET PO SCH ×2 (08:15→21:02)
[2020-06-21] MEDS: ASPIRIN E.C. 81 MG (ECOTRIN) TAB PO SCH (08:15)
[2020-06-21] MEDS: CARVEDILOL 12.5 MG (COREG) TABLET PO SCH ×2 (08:16→20:48)
[2020-06-21] MEDS: FUROSEMIDE 20 MG (LASIX) TAB PO SCH (08:16)
[2020-06-21] MEDS: lisINopril 20 MG (PRINIVIL) TABLET PO SCH (08:16)
[2020-06-21] MEDS: TIMOLOL MALEATE 0.5% 5 ML (TIMOPTIC) BTL OS SCH ×2 (08:17→20:54)
[2020-06-21] MEDS: SODIUM CHLORIDE 1 GM TABLET PO SCH ×2 (08:17→20:52)
[2020-06-21] MEDS: amLODIPine 5 MG (NORVASC) TAB PO SCH (08:17)
[2020-06-21] MEDS: MICONAZOLE 2% POWDER (DESENEX AF) 90 GM TOP SCH ×2 (08:17→20:53)
[2020-06-21] MEDS: CLOTRIMAZOLE 1% CREAM (LOTRIMIN) 30 GM TOP SCH ×2 (08:17→20:55)
[2020-06-21] MEDS: BETAMETHASONE/CLOTRIM CREAM (LOTRISONE) 45 GM TP SCH ×2 (08:18→21:02)
[2020-06-21] MEDS: polyethylene glycoL POWDER 17 GM (MIRALAX) PACK PO SCH ×2 (09:22→21:01)
--- NOTE | 2020-06-21 10:04 | Physical Therapy Daily Note ---
PT Daily Note-Current Subjective Pt. states she thinks she will DC on Tu, states she is more swollen and more SOB today Pain Location: No Pain Reported Appearance LEs with increased edema Mental Status Patient Orientation: Normal For Age Transfers SCALE: Activities may be completed with or without assistive devices. 5-Vsjjbqgonc-thvrepi completes the activity by him/herself with no assistance from a helper. 5-Set-up or Clean-up Assistance-helper sets up or cleans up; patient completes activity. [place] assists only prior to or following the activity. 4-Supervision or Touching Assistance-helper provides verbal cues and/or touching/steadying and/or contact guard assistance as patient completes activity. Assistance may be provided throughout the activity or intermittently. 3-Partial/Moderate Assistance-helper does LESS THAN HALF the effort. [place] lifts, holds or supports trunk or limbs, but provides less than half the effort. 2-Substantial/Maximal Assistance-helper does MORE THAN HALF the effort. [place] lifts or holds trunk or limbs and provides more than half the effort. 3-Uuethtfgr-aqufmw does ALL the effort. Patient does none of the effort to complete the activity. Or, the assistance of 2 or more helpers is required for the patient to complete the activity. If activity was not attempted, code reason: 7-Patient Refused. 9-Not Applicable-not attempted and the patient did not perform the activity before the current illness, exacerbation or injury. 10-Not Attempted due to Environmental Limitations-(lack of equipment, weather restraints, etc.). 88-Not Attempted due to Medical Conditions or Safety Concerns. Sit to Stand (QC): 5 Chair/Sao-wn-Pcrsb Xfer(QC): 5 Toilet Transfer (QC): 5 Car Transfer (QC): 4 SBA for sit to stand TRFs, unable to tolerate sup to sit to sup secondary to feeling SOA. car TRF requires mod to min assist LEs Weight Bearing Right Lower Extremity: Right Full Weight Bearing Left Lower Extremity: Left Full Weight Bearing Gait Training Does the Patient Walk?: Yes Walk 10 feet (QC): 5 Walk 50 ft with 2 Turns(QC): 5 Walk 150 ft (QC): 5 Gait Persons Needed: 1 Gait Assistive Device: FWW dyspnea noted but O2 sats >94% at all times Exercises Supine Ex: Bridging, Quad Set, Glut sets, Heel Slides, Scooting (up in reclner), Straight leg raise, Hip abd/add Supine Reps: 15 Seated Therapy Exercises: Ankle pumps, Sit to stand, Long arc quads, Hip flexion Seated Reps: 15 Standing: Hip Abduction, Heel/toe raises, Marching Standing Reps: 12 Treatments toileted SBA, washed hands SBA Assessment Current Status: Good Progress dyspnea with all activity limits pt. , rest breaks needed PT Short Term Goals Short Term Goals Time Frame: Jun 18, 2020 Roll Left & Right: 6 Sit to lyin Lying to sitting on side of be: 5 Sit to stand: 5 Chair/ffo-jz-gzrll transfer: 5 Toilet transfer: 5 Car transfer: 5 Walk 10 feet: 5 Walk 50 feet with two turns: 5 Walk 150 feet: 5 Walking 10ft on uneven surface: 5 1 step (curb): 4 4 steps: 4 12 steps: 9 Picking up objects: 4 PT Director Of Casework Department Goals Assisted Goals PT Director Of Casework Department Goals Time Frame: Jul 02, 2020 Roll Left & Right (QC): 6 Sit to Lying (QC): 6 Lying-Sitting on Side/Bed(QC): 6 Sit to Stand (QC): 6 Chair/Zjs-fh-Epnlj Xfer(QC): 6 Toilet Transfer (QC): 6 Car Transfer (QC): 6 Does the Patient Walk: Yes Walk 10 feet (QC): 6 Walk 50ft with 2 Turns (QC): 6 Walk 150 ft (QC): 6 Walking 10ft on Uneven Surface: 6 1 Step (curb) (QC): 6 4 Steps (QC): 5 12 Steps (QC): 9 Picking up an Object (QC): 5 Does the Pt use WC or Scooter?: No Wheel 50 feet with 2 turns (QC: 9 Type: N/A Wheel 150 feet: 9 Type: N/A PT Plan Treatment/Plan Treatment Plan: Continue Plan of Care Treatment Plan: Bed Mobility, Concurrent Therapy, Education, Functional Activity [place], Functional Strength, Group Therapy, Gait, Safety, Therapeutic Exercise, Transfers Treatment Duration: Jul 02, 2020 Frequency: At least 5 of 7 days/Wk (IRF) Estimated Hrs Per Day: 1.5 hours per day Patient and/or Family Agrees t: Yes Safety Risks/Education Patient Education: Gait Training, Transfer Techniques, Correct Positioning, Disease Process, Safety Issues Teaching Recipient: Patient Teaching Methods: Demonstration, Discussion Response to Teaching: Verbalize Understanding, Return Demonstration, Reinforcement Needed Time/GCodes Time In: 900 Time Out: 1000 Total Billed Treatment Time: 60 Total Billed Treatment 1,EX35m,GT15,FA10m [employer] P[employer]AGE PICK UP Jun 21, 2020 10:03
--- NOTE | 2020-06-21 10:52 | Occupational Ther Daily Note ---
OT Current Status-Daily Note Subjective Pt AxO, upright in chair. Food completed, juice drank and coffee untouched (nursing notified per cc limitations). Pt agrees to showering, no pain noted. Pt seen, daughter present through session. Pt denies pain, agrees to gym time. Mental Status/Objective Patient Orientation: Person, Place, Situation, Normal For Age ADL-Treatment Therapy Code Descriptions/Definitions Functional [place] Measure: 0=Not Assessed/NA 4=Minimal Assistance 1=Total Assistance 5=Supervision or Setup 2=Maximal Assistance 6=Modified [place] 3=Moderate Assistance 7=Complete IndependenceSCALE: Activities may be completed with or without assistive devices. 7-Evcmrzkoao-zsvicsz completes the activity by him/herself with no assistance from a helper. 5-Set-up or Clean-up Assistance-helper sets up or cleans up; patient completes activity. [place] assists only prior to or following the activity. 4-Supervision or Touching Assistance-helper provides verbal cues and/or touching/steadying and/or contact guard assistance as patient completes activity. Assistance may be provided throughout the activity or intermittently. 3-Partial/Moderate Assistance-helper does LESS THAN HALF the effort. [place] lifts, holds or supports trunk or limbs, but provides less than half the effort. 2-Substantial/Maximal Assistance-helper does MORE THAN HALF the effort. [place] lifts or holds trunk or limbs and provides more than half the effort. 5-Mxgxfytwq-dbtkks does ALL the effort. Patient does none of the effort to complete the activity. Or, the assistance of 2 or more helpers is required for the patient to complete the activity. If activity was not attempted, code reason: 7-Patient Refused. 9-Not Applicable-not attempted and the patient did not perform the activity before the current illness, exacerbation or injury. 10-Not Attempted due to Environmental Limitations-(lack of equipment, weather restraints, etc.). 88-Not Attempted due to Medical Conditions or Safety Concerns. Eating (QC): 6 Bathing Location: L Arm, R Arm, L Upper Leg, R Upper Leg, L Lower Leg (including foot), R Lower Leg (including foot), Chest, Abdomen, Buttocks, Perineal Area Shower/Bathe Self (QC): 3 (Pt requires A with back and washing hair (pt gets this assist from children at home as well). At PLOF with showering.) Upper Body Dressing (QC): 5 (s/u) Lower Body Dressing (QC): 3 (min A due to damp skin/ swelling decreasing reaching ability.) On/Off Footwear: 1 (TD as OT completes wrapping from distal toes to knees.) Toileting Hygiene (QC): 4 (SBA during bottom care in shower. IND in sit with phoebe care.) Toilet Transfer (QC): 4 (SBA, use of walker.) Other Treatment Pt sit to stand with SBA. Ambulates to bathroom, completes toileting/ showering with SBA and Max showering. Pt dresses on toilet with increased time, cream/ powder applied under breasts. Due to swelling, pt expresses decreased ability to bend to reach LEs. Pt is educated on use of AE. Pt does not desire to complete at this time, though states she has "a stick" at home and uses "normal un derwear" which gives more forgiveness than tighter briefs. Pt ambulates to chair, LEs wrapped and brought up to elevated position. Pt expresses she may have visitiors this afternoon. Time is adjusted per pt's tolerance to allow for time with visitors this pm. Left in chair with all needs met, call light in reach. Pt ambulates to bathroom SBA, completion of toileting. Ambulates with FWW to gym, completing 10 min mod resistance (25 watt) arm bike with minimal rest breaks. Breath maintains. Pt stands to complete higher level standing balance task with bilateral use. Pt uses L dominant hand to throw items into basket with CGA, working towards increased balance/ reactions. Pt completes same tasks, though taking from L to R to encourage bimanual tasks without support from walker. Pt requires increased time for this task and increased concentration, no LOB. Pt returns to room, food placed in front of her within chair, all needs met, call light in reach, pt's daughter present. Education OT Patient Education: Correct positioning, Exercise program, Modified ADL techniques, Progress toward Goal/Update tx plan, Purpose of tx/functional activities, Safety issues, Use of adapted equipment Teaching Recipient: Patient Teaching Methods: Demonstration, Discussion Response to Teaching: Verbalize Understanding, Return Demonstration OT Short Term Goals Short Term Goals Time Frame: Jun 18, 2020 Eatin Oral hygiene: 5 Toileting hygiene: 4 Shower/bathe self: 4 Upper body dressin Lower body dressin (With AE) Putting on/taking off footwear: 4 (With AE) OT Half-Way Goals Deckhand Maintenance Goals Time Frame: Jul 02, 2020 Eating (QC): 6 Oral Hygiene (QC): 6 Toileting Hygiene (QC): 6 Shower/Bathe Self (QC): 5 Upper Body Dressing (QC): 6 Lower Body Dressing (QC): 5 On/Off Footwear (QC): 5 (With AE) Additional Goals: 1-Demonstrate ADL Tasks, 2-Verbalize Understanding, 3- ImproveStrength/[place] 1=Demonstrate adherence to instructed precautions during ADL tasks. 2=Patient will verbalize/demonstrate understanding of assistive devices/ modifications for ADL. 3=Patient will improve strength/tolerance for activity to enable patient to perform ADL's. OT Education/Plan Problem List/Assessment Assessment: Decreased Activ Tolerance, Decreased UE Strength, Dependent Transfers, Edema, Impaired I ADL's, Impaired Self-Care Skills Discharge Recommendations Plan/Recommendations: Continue POC Therapy Discharge Recommendati: Scheduled Assistance, Home & Family Treatment Plan/Plan of Care Treatment,Training & Education: Yes Patient would benefit from OT for education, treatment and training to promote independence in ADL's, mobility, safety and/or upper extremity function for ADL's. Plan of Care: ADL Retraining, Functional Mobility, UE Funct Exercise/Act Treatment Duration: Jul 02, 2020 Frequency: At least 5 of 7 days/Wk (IRF) Estimated Hrs Per Day: 1.5 hours per day Agreement: Yes Rehab Potential: Good Time/GCodes Start Time: 08:00 (1130) Stop Time: 09:00 (1200) Total Time Billed (hr/min): 90 Billed Treatment Time 1196-5444: 1, ADL 4 (60) 8220-1829: 1, EX2 (30) SHIRLEY LOPEZ OTR Jun 21, 2020 10:52
--- NOTE | 2020-06-21 11:05 | PM&R Progress Note ---
Subjective HPI/CC On Admission Date Seen by Provider: Jun 21, 2020 Time Seen by Provider: 11:15 Subjective/Events-last exam 06/21/20: Lasix started by Dr Valerio and that seems to be helping Antifungal powder helping a bit No pain reported Tired and sleeps a lot 06/20/20: Pt doing a lot better but SOB BNP is elevated at 291 CXR is negative Sodium level 133 BP okay but is labile Breast excoriation will be managed with Micanozol Powder Reaching out to Dr Valerio regarding diuretic 06/19/20: Pt doing okay Having a little SOB and some edema so need to consult Dr. Valerio Amlodipine will be started at 5 mg Wheezing a bit so will initiate IS Had some loose stools today 06/18/20: Pt doing pretty well but concerned about her sodium level Considering I stopped the hydrochlorothiazide she is probably at baseline 132- 133 although she would want to try the fluid restriction and sodium tablet so we will do that Ambulating around doing well Bowels moved yesterday Overall pretty tired 06/17/20: Pt doing much better Less dysphasia Sodium level of 132 Loose stools continue Overall much better 06/16/20: Patient doing well today Noted constipation EGD discussed BP varies and it makes her nervous 06/15/20: Patient feels better EGD yesterday No complaints Son visited today 06/14/20: Doing well EGD reviewed Feels better BM yesterday 06/13/20: Patient doing well No issues Had her COVID vaccine 2nd dose 05/11/20 Coughed on Lactulose so initiated IS No pain reported 06/12/20: Pt doing really well today Sodium level up at 133 Ordered Reglan BID the way she takes it Podiatry consult initiated Bowels moved yesterday Review of Systems General: Fatigue, Malaise Pulmonary: Dyspnea Cardiovascular: Edema Objective Exam Vital Signs Vital Signs Date Time Temp Pulse Resp B/P (MAP) Pulse Ox O2 Delivery O2 Flow Rate FiO2 06/22/20 05:58 36.2 86 18 137/62 (87) 92 Room Air Capillary Refill : General Appearance: No Apparent Distress, WD/WN, Chronically ill HEENT: PERRL/EOMI, Normal ENT Inspection, Pharynx Normal, Moist Mucous Membranes, Other (poor dentition) Neck: Full Range of Motion, Normal Inspection, Non Tender, Supple Respiratory: Chest Non Tender, Lungs Clear, Normal Breath Sounds, No Accessory Muscle Use, No Respiratory Distress Cardiovascular: Regular Rate, Rhythm, No Gallop, No JVD, No Murmur Gastrointestinal: Normal Bowel Sounds, No Organomegaly, No Pulsatile Mass, Non Tender, Soft Back: Normal Inspection, No CVA Tenderness, No Vertebral Tenderness Extremity: Normal Capillary Refill, Normal Range of Motion, Non Tender, No Calf Tenderness, Pedal Edema Neurologic/Psychiatric: Alert, Oriented x3, Normal Mood/Affect, cathead operator II-XII Norm as Tested, Abnormal Gait, Motor Weakness Skin: Normal Color, Warm/Dry Results/Procedures Lab Patient resulted labs reviewed. FIM Transfers Therapy Code Descriptions/Definitions Functional [place] Measure: 0=Not Assessed/NA 4=Minimal Assistance 1=Total Assistance 5=Supervision or Setup 2=Maximal Assistance 6=Modified [place] 3=Moderate Assistance 7=Complete IndependenceSCALE: Activities may be completed with or without assistive devices. 7-Qqhabjiuar-yaismcu completes the activity by him/herself with no assistance from a helper. 5-Set-up or Clean-up Assistance-helper sets up or cleans up; patient completes activity. [place] assists only prior to or following the activity. 4-Supervision or Touching Assistance-helper provides verbal cues and/or touching/steadying and/or contact guard assistance as patient completes activity. Assistance may be provided throughout the activity or intermittently. 3-Partial/Moderate Assistance-helper does LESS THAN HALF the effort. [place] lifts, holds or supports trunk or limbs, but provides less than half the effort. 2-Substantial/Maximal Assistance-helper does MORE THAN HALF the effort. [place] lifts or holds trunk or limbs and provides more than half the effort. 6-Zjtpcgkve-ruoyio does ALL the effort. Patient does none of the effort to complete the activity. Or, the assistance of 2 or more helpers is required for the patient to complete the activity. If activity was not attempted, code reason: 7-Patient Refused. 9-Not Applicable-not attempted and the patient did not perform the activity before the current illness, exacerbation or injury. 10-Not Attempted due to Environmental Limitations-(lack of equipment, weather restraints, etc.). 88-Not Attempted due to Medical Conditions or Safety Concerns. Roll Left to Right (QC): 4 Sit to Lying (QC): 4 Sit to Stand (QC): 5 Chair/Zvf-bq-Phqph Xfer(QC): 5 Car Transfer (QC): 4 Gait Training Does the Patient Walk?: Yes Distance: 100' x2 Walk 10 feet (QC): 5 Walk 50 ft with 2 Turns(QC): 5 Walk 150 ft (QC): 5 Walking 10ft/uneven surface-QC: 4 Gait Persons Needed: 1 Gait Assistive Device: FWW Wheelchair Training Does the Pt Use a Wheelchair?: No Wheel 50 ft with 2 turns (QC): 9 Wheel 150 ft (QC): 9 Stair Training 1 Step (curb) (QC): 3 4 Steps (QC): 88 12 Steps (QC): 9 Balance Picking up an Object (QC): 88 ADL-Treatment Eating (QC): 6 Oral Hygiene (QC): 4 (SBA standing at sink to brush teeth.) Bathing Location: L Arm, R Arm, L Upper Leg, R Upper Leg, L Lower Leg (including foot), R Lower Leg (including foot), Chest, Abdomen, Buttocks, Perineal Area Shower/Bathe Self (QC): 3 (Pt requires A with back and washing hair (pt gets this assist from children at home as well). At PLOF with showering.) Upper Body Dressing (QC): 5 (s/u) Lower Body Dressing (QC): 3 (min A due to damp skin/ swelling decreasing reaching ability.) On/Off Footwear (QC): 1 (TD as OT completes wrapping from distal toes to knees.) Toileting Hygiene (QC): 4 (SBA during bottom care in shower. IND in sit with phoebe care.) Toilet Transfer (QC): 4 (SBA, use of walker.) Assessment/Plan Assessment and Plan Assess & Plan/Chief Complaint Assessment: Debility Hyponatremia holding HCTZ Severe weakness Dysphagia with gastric ulcers in the past on EGD and EGD revealed gastritis on EGD per Dr Astorga 06/14/20 HTN GERD Glaucoma Gastroparesis Edema legs Plan: Monitor closely Check labs Home meds 06/12/20: Monitor closely Hold HCTZ Monitor BP 06/13/20: Monitor BP Monitor for pain 06/14/20: Appreciate Dr Astorga for EGD Monitor closely 06/15/20: Monitor dysphagia Monitor for falls 06/16/20: Monitor dysphagia BP ok Supp if needed 06/17/20: Monitor sodium level Monitor dysphagia 06/18/20: Salt tablets and fluid restriction Monitor closely 06/19/20: Dr Valerio consult [facility] 5mg Edema management Fluid restriction with salt tablets 06/20/20: Diuretic per Cardiology Fluid restriction Monitor closely 06/21/20: Wrap legs Lasix Monitor closely (1) Debility (2) Generalized weakness Status: Acute (3) Hyponatremia Status: Acute (4) Electrolyte abnormality (5) Essential (primary) hypertension Status: Chronic MARKO ANDERS DO Jun 21, 2020 11:05
--- NOTE | 2020-06-21 14:06 | Physical Therapy Daily Note ---
PT Daily Note-Current Subjective Pt. sleeping in recliner upon entering. Pt. requests short walk in room (so she doesnt have to wear a mask) , toileting and some sitting exercises. Pain Location: No Pain Reported Mental Status Patient Orientation: Normal For Age Transfers SCALE: Activities may be completed with or without assistive devices. 9-Fffynifpmw-nvylgkj completes the activity by him/herself with no assistance from a helper. 5-Set-up or Clean-up Assistance-helper sets up or cleans up; patient completes activity. [place] assists only prior to or following the activity. 4-Supervision or Touching Assistance-helper provides verbal cues and/or touching/steadying and/or contact guard assistance as patient completes activity. Assistance may be provided throughout the activity or intermittently. 3-Partial/Moderate Assistance-helper does LESS THAN HALF the effort. [place] lifts, holds or supports trunk or limbs, but provides less than half the effort. 2-Substantial/Maximal Assistance-helper does MORE THAN HALF the effort. [place] lifts or holds trunk or limbs and provides more than half the effort. 9-Asmlgiyki-degnnp does ALL the effort. Patient does none of the effort to complete the activity. Or, the assistance of 2 or more helpers is required for the patient to complete the activity. If activity was not attempted, code reason: 7-Patient Refused. 9-Not Applicable-not attempted and the patient did not perform the activity before the current illness, exacerbation or injury. 10-Not Attempted due to Environmental Limitations-(lack of equipment, weather restraints, etc.). 88-Not Attempted due to Medical Conditions or Safety Concerns. in ou chair and on off toilet SBA to Mod I Weight Bearing Right Lower Extremity: Right Full Weight Bearing Left Lower Extremity: Left Full Weight Bearing Gait Training Does the Patient Walk?: Yes Gait Assistive Device: FWW 50ft x 2 many turns, SBA Exercises Seated Therapy Exercises: Ankle pumps, Sit to stand, Long arc quads, Hip flexion, Hip abd/add Seated Reps: 15 Assessment Current Status: Good Progress edema in LEs cont as well as c/o dyspnea, pt. hopes breathing Rxs will help PT Short Term Goals Short Term Goals Time Frame: Jun 18, 2020 Roll Left & Right: 6 Sit to lyin Lying to sitting on side of be: 5 Sit to stand: 5 Chair/hcr-yi-nxyjw transfer: 5 Toilet transfer: 5 Car transfer: 5 Walk 10 feet: 5 Walk 50 feet with two turns: 5 Walk 150 feet: 5 Walking 10ft on uneven surface: 5 1 step (curb): 4 4 steps: 4 12 steps: 9 Picking up objects: 4 PT Special Police Goals Fdc Goals PT Special Police Goals Time Frame: Jul 02, 2020 Roll Left & Right (QC): 6 Sit to Lying (QC): 6 Lying-Sitting on Side/Bed(QC): 6 Sit to Stand (QC): 6 Chair/Zqu-cz-Ncgjg Xfer(QC): 6 Toilet Transfer (QC): 6 Car Transfer (QC): 6 Does the Patient Walk: Yes Walk 10 feet (QC): 6 Walk 50ft with 2 Turns (QC): 6 Walk 150 ft (QC): 6 Walking 10ft on Uneven Surface: 6 1 Step (curb) (QC): 6 4 Steps (QC): 5 12 Steps (QC): 9 Picking up an Object (QC): 5 Does the Pt use WC or Scooter?: No Wheel 50 feet with 2 turns (QC: 9 Type: N/A Wheel 150 feet: 9 Type: N/A PT Plan Treatment/Plan Treatment Plan: Continue Plan of Care Treatment Plan: Bed Mobility, Concurrent Therapy, Education, Functional Activity [place], Functional Strength, Group Therapy, Gait, Safety, Therapeutic Exercise, Transfers Treatment Duration: Jul 02, 2020 Frequency: At least 5 of 7 days/Wk (IRF) Estimated Hrs Per Day: 1.5 hours per day Patient and/or Family Agrees t: Yes Safety Risks/Education Patient Education: Gait Training, Transfer Techniques Time/GCodes Time In: 1330 Time Out: 1400 Total Billed Treatment Time: 30 Total Billed Treatment 1,FA15m,EX15m [facility] [employer] [facility] Jun 21, 2020 14:06
[2020-06-21] MEDS ORDERED: RT-ALBUTEROL SULF 2.5 MG/3 ML PRE-MIX VIAL INH NR (15:45)
[2020-06-21 16:21] VITALS: BP 137/63
[2020-06-21] MEDS: PANTOPRAZOLE 40 MG (PROTONIX) TAB PO SCH (19:21)
[2020-06-21 20:45] VITALS: BP 105/52
[2020-06-21] MEDS: MIRTAZAPINE 15 MG (REMERON) TAB PO SCH (20:48)
[2020-06-21] MEDS: MELATONIN 3 MG TABLET PO PRN (20:48)
[2020-06-21] MEDS: CLOTRIMAZOLE 1% CREAM (LOTRIMIN) 30 GM TOP PRN (20:55)
[2020-06-21] MEDS: RT-ALBUTEROL SULF 2.5 MG/3 ML PRE-MIX VIAL INH SCH (21:00)
[2020-06-22 05:58] VITALS: BP 137/62
[2020-06-22] MEDS: METOCLOPRAMIDE 5 MG (REGLAN) TAB PO SCH ×2 (06:00→16:32)
[2020-06-22] MEDS: DOCUSATE SODIUM 100 MG (COLACE) CAP PO SCH ×2 (08:26→20:25)
[2020-06-22] MEDS: polyethylene glycoL POWDER 17 GM (MIRALAX) PACK PO SCH ×2 (08:27→20:25)
[2020-06-22] MEDS: SENNA W/DOCUSATE (SENOKOT S) TABLET PO SCH ×2 (08:27→20:25)
[2020-06-22] MEDS: ASPIRIN E.C. 81 MG (ECOTRIN) TAB PO SCH (08:27)
[2020-06-22] MEDS: CARVEDILOL 12.5 MG (COREG) TABLET PO SCH ×2 (08:29→20:24)
[2020-06-22] MEDS: amLODIPine 5 MG (NORVASC) TAB PO SCH (08:31)
[2020-06-22] MEDS: FUROSEMIDE 20 MG (LASIX) TAB PO SCH (08:31)
[2020-06-22] MEDS: lisINopril 20 MG (PRINIVIL) TABLET PO SCH (08:32)
[2020-06-22] MEDS: SODIUM CHLORIDE 1 GM TABLET PO SCH ×2 (08:32→20:23)
[2020-06-22] MEDS: CLOTRIMAZOLE 1% CREAM (LOTRIMIN) 30 GM TOP SCH ×2 (08:35→20:25)
[2020-06-22] MEDS: MICONAZOLE 2% POWDER (DESENEX AF) 90 GM TOP SCH ×2 (08:35→20:23)
[2020-06-22] MEDS: TIMOLOL MALEATE 0.5% 5 ML (TIMOPTIC) BTL OS SCH ×2 (08:36→20:23)
[2020-06-22] MEDS: RT-ALBUTEROL SULF 2.5 MG/3 ML PRE-MIX VIAL INH SCH ×2 (08:36→18:30)
[2020-06-22] MEDS: BETAMETHASONE/CLOTRIM CREAM (LOTRISONE) 45 GM TP SCH ×2 (10:05→20:26)
--- NOTE | 2020-06-22 11:01 | Physical Therapy Daily Note ---
PT Daily Note-Current Subjective Pt agreeable. Pt denies pain. Mental Status Patient Orientation: Person, Place, Situation Transfers SCALE: Activities may be completed with or without assistive devices. 5-Gbffiizpxy-ntmjwwk completes the activity by him/herself with no assistance f rom a helper. 5-Set-up or Clean-up Assistance-helper sets up or cleans up; patient completes activity. [place] assists only prior to or following the activity. 4-Supervision or Touching Assistance-helper provides verbal cues and/or touching/steadying and/or contact guard assistance as patient completes activity. Assistance may be provided throughout the activity or intermittently. 3-Partial/Moderate Assistance-helper does LESS THAN HALF the effort. [place] lifts, holds or supports trunk or limbs, but provides less than half the effort. 2-Substantial/Maximal Assistance-helper does MORE THAN HALF the effort. [place] lifts or holds trunk or limbs and provides more than half the effort. 4-Jaoorhgji-zggabw does ALL the effort. Patient does none of the effort to complete the activity. Or, the assistance of 2 or more helpers is required for the patient to complete the activity. If activity was not attempted, code reason: 7-Patient Refused. 9-Not Applicable-not attempted and the patient did not perform the activity before the current illness, exacerbation or injury. 10-Not Attempted due to Environmental Limitations-(lack of equipment, weather restraints, etc.). 88-Not Attempted due to Medical Conditions or Safety Concerns. Weight Bearing Right Lower Extremity: Right Full Weight Bearing Left Lower Extremity: Left Full Weight Bearing Exercises NuStep Minutes: 7 NuStep Workload: 4 Treatments Pt amb with FWW and CGA-SBA 2 x 120ft. BR privileges mod (I) Assessment Current Status: Good Progress Pt back to recliner with call light and all needs met. Pt ninfa above very well. No c/o fatigue. Good balance throughout. PT Short Term Goals Short Term Goals Time Frame: Jun 18, 2020 Roll Left & Right: 6 Sit to lyin Lying to sitting on side of be: 5 Sit to stand: 5 Chair/lvt-lj-iztor transfer: 5 Toilet transfer: 5 Car transfer: 5 Walk 10 feet: 5 Walk 50 feet with two turns: 5 Walk 150 feet: 5 Walking 10ft on uneven surface: 5 1 step (curb): 4 4 steps: 4 12 steps: 9 Picking up objects: 4 PT Halfway Goals Bar Staff Goals PT Bar Staff Goals Time Frame: Jul 02, 2020 Roll Left & Right (QC): 6 Sit to Lying (QC): 6 Lying-Sitting on Side/Bed(QC): 6 Sit to Stand (QC): 6 Chair/Aub-bg-Tnipy Xfer(QC): 6 Toilet Transfer (QC): 6 Car Transfer (QC): 6 Does the Patient Walk: Yes Walk 10 feet (QC): 6 Walk 50ft with 2 Turns (QC): 6 Walk 150 ft (QC): 6 Walking 10ft on Uneven Surface: 6 1 Step (curb) (QC): 6 4 Steps (QC): 5 12 Steps (QC): 9 Picking up an Object (QC): 5 Does the Pt use WC or Scooter?: No Wheel 50 feet with 2 turns (QC: 9 Type: N/A Wheel 150 feet: 9 Type: N/A PT Plan Treatment/Plan Treatment Plan: Continue Plan of Care Treatment Plan: Bed Mobility, Concurrent Therapy, Education, Functional Activity [place], Functional Strength, Group Therapy, Gait, Safety, Therapeutic Exercise, Transfers Treatment Duration: Jul 02, 2020 Frequency: At least 5 of 7 days/Wk (IRF) Estimated Hrs Per Day: 1.5 hours per day Patient and/or Family Agrees t: Yes Time/GCodes Time In: 855 Time Out: 920 Total Billed Treatment Time: 25 Total Billed Treatment 1, gait 15', Ex 10' BRADLEY ALVAREZ CPTA Jun 22, 2020 11:01
--- NOTE | 2020-06-22 12:31 | PM&R Progress Note ---
Subjective HPI/CC On Admission Date Seen by Provider: Jun 22, 2020 Time Seen by Provider: 12:40 Subjective/Events-last exam 06/22/20: Patient doing well Dyspnea improved No issues Ate good lunch 06/21/20: Lasix started by Dr Valerio and that seems to be helping Antifungal powder helping a bit No pain reported Tired and sleeps a lot 06/20/20: Pt doing a lot better but SOB BNP is elevated at 291 CXR is negative Sodium level 133 BP okay but is labile Breast excoriation will be managed with Micanozol Powder Reaching out to Dr Valerio regarding diuretic 06/19/20: Pt doing okay Having a little SOB and some edema so need to consult Dr. Valerio Amlodipine will be started at 5 mg Wheezing a bit so will initiate IS Had some loose stools today 06/18/20: Pt doing pretty well but concerned about her sodium level Considering I stopped the hydrochlorothiazide she is probably at baseline 132- 133 although she would want to try the fluid restriction and sodium tablet so we will do that Ambulating around doing well Bowels moved yesterday Overall pretty tired 06/17/20: Pt doing much better Less dysphasia Sodium level of 132 Loose stools continue Overall much better 06/16/20: Patient doing well today Noted constipation EGD discussed BP varies and it makes her nervous 06/15/20: Patient feels better EGD yesterday No complaints Son visited today 06/14/20: Doing well EGD reviewed Feels better BM yesterday 06/13/20: Patient doing well No issues Had her COVID vaccine 2nd dose 05/11/20 Coughed on Lactulose so initiated IS No pain reported 06/12/20: Pt doing really well today Sodium level up at 133 Ordered Reglan BID the way she takes it Podiatry consult initiated Bowels moved yesterday Review of Systems General: Fatigue, Malaise Pulmonary: Dyspnea Neurological: Weakness Objective Exam Vital Signs Vital Signs Date Time Temp Pulse Resp B/P (MAP) Pulse Ox O2 Delivery O2 Flow Rate FiO2 06/23/20 05:49 36.5 81 16 145/65 (91) 92 Room Air Capillary Refill : General Appearance: No Apparent Distress, WD/WN, Chronically ill HEENT: PERRL/EOMI, Normal ENT Inspection, Pharynx Normal, Moist Mucous Membranes, Other (poor dentition) Neck: Full Range of Motion, Normal Inspection, Non Tender, Supple Respiratory: Chest Non Tender, Lungs Clear, Normal Breath Sounds, No Accessory Muscle Use, No Respiratory Distress Cardiovascular: Regular Rate, Rhythm, No Gallop, No JVD, No Murmur Gastrointestinal: Normal Bowel Sounds, No Organomegaly, No Pulsatile Mass, Non Tender, Soft Back: Normal Inspection, No CVA Tenderness, No Vertebral Tenderness Extremity: Normal Capillary Refill, Normal Range of Motion, Non Tender, No Calf Tenderness, Pedal Edema Neurologic/Psychiatric: Alert, Oriented x3, Normal Mood/Affect, planning analyst II-XII Norm as Tested, Abnormal Gait, Motor Weakness Skin: Normal Color, Warm/Dry Results/Procedures Lab Patient resulted labs reviewed. FIM Transfers Therapy Code Descriptions/Definitions Functional [place] Measure: 0=Not Assessed/NA 4=Minimal Assistance 1=Total Assistance 5=Supervision or Setup 2=Maximal Assistance 6=Modified [place] 3=Moderate Assistance 7=Complete IndependenceSCALE: Activities may be completed with or without assistive devices. 3-Kpssekggbr-rtxetmd completes the activity by him/herself with no assistance from a helper. 5-Set-up or Clean-up Assistance-helper sets up or cleans up; patient completes activity. [place] assists only prior to or following the activity. 4-Supervision or Touching Assistance-helper provides verbal cues and/or touching/steadying and/or contact guard assistance as patient completes activity. Assistance may be provided throughout the activity or intermittently. 3-Partial/Moderate Assistance-helper does LESS THAN HALF the effort. [place] lifts, holds or supports trunk or limbs, but provides less than half the effort. 2-Substantial/Maximal Assistance-helper does MORE THAN HALF the effort. [place] lifts or holds trunk or limbs and provides more than half the effort. 0-Fbjqpsbpc-qytzln does ALL the effort. Patient does none of the effort to complete the activity. Or, the assistance of 2 or more helpers is required for the patient to complete the activity. If activity was not attempted, code reason: 7-Patient Refused. 9-Not Applicable-not attempted and the patient did not perform the activity before the current illness, exacerbation or injury. 10-Not Attempted due to Environmental Limitations-(lack of equipment, weather restraints, etc.). 88-Not Attempted due to Medical Conditions or Safety Concerns. Roll Left to Right (QC): 4 Sit to Lying (QC): 4 Sit to Stand (QC): 5 Chair/Jgj-mx-Esyki Xfer(QC): 5 Car Transfer (QC): 4 Gait Training Does the Patient Walk?: Yes Distance: 100' x2 Walk 10 feet (QC): 5 Walk 50 ft with 2 Turns(QC): 5 Walk 150 ft (QC): 5 Walking 10ft/uneven surface-QC: 4 Gait Persons Needed: 1 Gait Assistive Device: FWW Wheelchair Training Does the Pt Use a Wheelchair?: No Wheel 50 ft with 2 turns (QC): 9 Wheel 150 ft (QC): 9 Stair Training 1 Step (curb) (QC): 3 4 Steps (QC): 88 12 Steps (QC): 9 Balance Picking up an Object (QC): 88 ADL-Treatment Eating (QC): 6 Oral Hygiene (QC): 4 (SBA standing at sink to brush teeth.) Bathing Location: L Arm, R Arm, L Upper Leg, R Upper Leg, L Lower Leg (i ncluding foot), R Lower Leg (including foot), Chest, Abdomen, Buttocks, Perineal Area Shower/Bathe Self (QC): 3 (Pt requires A with back and washing hair (pt gets this assist from children at home as well). At PLOF with showering.) Upper Body Dressing (QC): 5 (s/u) Lower Body Dressing (QC): 3 (min A due to damp skin/ swelling decreasing reaching ability.) On/Off Footwear (QC): 1 (TD as OT completes wrapping from distal toes to knees.) Toileting Hygiene (QC): 4 (SBA during bottom care in shower. IND in sit with phoebe care.) Toilet Transfer (QC): 4 (SBA, use of walker.) Assessment/Plan Assessment and Plan Assess & Plan/Chief Complaint Assessment: Debility Hyponatremia holding HCTZ Severe weakness Dysphagia with gastric ulcers in the past on EGD and EGD revealed gastritis on EGD per Dr Astorga 06/14/20 HTN GERD Glaucoma Gastroparesis Edema legs Plan: Monitor closely Check labs Home meds 06/12/20: Monitor closely Hold HCTZ Monitor BP 06/13/20: Monitor BP Monitor for pain 06/14/20: Appreciate Dr Astorga for EGD Monitor closely 06/15/20: Monitor dysphagia Monitor for falls 06/16/20: Monitor dysphagia BP ok Supp if needed 06/17/20: Monitor sodium level Monitor dysphagia 06/18/20: Salt tablets and fluid restriction Monitor closely 06/19/20: Dr Valerio consult [facility] 5mg Edema management Fluid restriction with salt tablets 06/20/20: Diuretic per Cardiology Fluid restriction Monitor closely 06/21/20: Wrap legs Lasix Monitor closely 06/22/20: Monitor Lasix and dyspnea Monitor for falls (1) Debility (2) Generalized weakness Status: Acute (3) Hyponatremia Status: Acute (4) Electrolyte abnormality (5) Essential (primary) hypertension Status: Chronic MARKO ANDERS DO Jun 22, 2020 12:31
[2020-06-22 17:16] VITALS: BP 141/64
[2020-06-22] MEDS: PANTOPRAZOLE 40 MG (PROTONIX) TAB PO SCH (17:59)
[2020-06-22 20:20] VITALS: BP 123/59
[2020-06-22] MEDS: MIRTAZAPINE 15 MG (REMERON) TAB PO SCH (20:23)
[2020-06-22] MEDS: MELATONIN 3 MG TABLET PO PRN (20:24)
[2020-06-23] MEDS: ALPRAZolam 0.25 MG (XANAX) TAB PO PRN (00:15)
[2020-06-23 05:49] VITALS: BP 145/65
[2020-06-23] MEDS: METOCLOPRAMIDE 5 MG (REGLAN) TAB PO SCH ×2 (06:00→16:10)
[2020-06-23] MEDS: RT-ALBUTEROL SULF 2.5 MG/3 ML PRE-MIX VIAL INH SCH ×2 (07:02→18:57)
[2020-06-23] MEDS: SENNA W/DOCUSATE (SENOKOT S) TABLET PO SCH ×2 (07:52→20:31)
[2020-06-23] MEDS: polyethylene glycoL POWDER 17 GM (MIRALAX) PACK PO SCH ×2 (07:52→20:31)
[2020-06-23] MEDS: DOCUSATE SODIUM 100 MG (COLACE) CAP PO SCH ×2 (07:52→20:35)
[2020-06-23] MEDS: SODIUM CHLORIDE 1 GM TABLET PO SCH ×2 (08:31→20:35)
[2020-06-23] MEDS: amLODIPine 5 MG (NORVASC) TAB PO SCH (08:31)
[2020-06-23] MEDS: FUROSEMIDE 20 MG (LASIX) TAB PO SCH (08:31)
[2020-06-23] MEDS: lisINopril 20 MG (PRINIVIL) TABLET PO SCH (08:31)
[2020-06-23] MEDS: ASPIRIN E.C. 81 MG (ECOTRIN) TAB PO SCH (08:31)
[2020-06-23] MEDS: CARVEDILOL 12.5 MG (COREG) TABLET PO SCH ×2 (08:31→20:34)
[2020-06-23] MEDS: MICONAZOLE 2% POWDER (DESENEX AF) 90 GM TOP SCH ×2 (08:32→21:22)
[2020-06-23] MEDS: TIMOLOL MALEATE 0.5% 5 ML (TIMOPTIC) BTL OS SCH ×2 (08:32→20:38)
[2020-06-23] MEDS: CLOTRIMAZOLE 1% CREAM (LOTRIMIN) 30 GM TOP SCH ×2 (08:33→21:24)
[2020-06-23] MEDS: BETAMETHASONE/CLOTRIM CREAM (LOTRISONE) 45 GM TP SCH ×2 (10:06→21:24)
--- NOTE | 2020-06-23 14:07 | PM&R Progress Note ---
Subjective HPI/CC On Admission Date Seen by Provider: Jun 23, 2020 Time Seen by Provider: 14:15 Subjective/Events-last exam 06/23/20: Patient feels great Fluid restriction maintained without diff Refuses Reglan due to lose stools Monitor closely 06/22/20: Patient doing well Dyspnea improved No issues Ate good lunch 06/21/20: Lasix started by Dr Valerio and that seems to be helping Antifungal powder helping a bit No pain reported Tired and sleeps a lot 06/20/20: Pt doing a lot better but SOB BNP is elevated at 291 CXR is negative Sodium level 133 BP okay but is labile Breast excoriation will be managed with Micanozol Powder Reaching out to Dr Valerio regarding diuretic 06/19/20: Pt doing okay Having a little SOB and some edema so need to consult Dr. Valerio Amlodipine will be started at 5 mg Wheezing a bit so will initiate IS Had some loose stools today 06/18/20: Pt doing pretty well but concerned about her sodium level Considering I stopped the hydrochlorothiazide she is probably at baseline 132- 133 although she would want to try the fluid restriction and sodium tablet so we will do that Ambulating around doing well Bowels moved yesterday Overall pretty tired 06/17/20: Pt doing much better Less dysphasia Sodium level of 132 Loose stools continue Overall much better 06/16/20: Patient doing well today Noted constipation EGD discussed BP varies and it makes her nervous 06/15/20: Patient feels better EGD yesterday No complaints Son visited today 06/14/20: Doing well EGD reviewed Feels better BM yesterday 06/13/20: Patient doing well No issues Had her COVID vaccine 2nd dose 05/11/20 Coughed on Lactulose so initiated IS No pain reported 06/12/20: Pt doing really well today Sodium level up at 133 Ordered Reglan BID the way she takes it Podiatry consult initiated Bowels moved yesterday Review of Systems General: Fatigue, Malaise Neurological: Weakness Objective Exam Vital Signs Vital Signs Date Time Temp Pulse Resp B/P (MAP) Pulse Ox O2 Delivery O2 Flow Rate FiO2 06/23/20 16:00 36.1 71 16 99/51 (67) 94 06/23/20 09:00 Room Air Capillary Refill : General Appearance: No Apparent Distress, WD/WN, Chronically ill HEENT: PERRL/EOMI, Normal ENT Inspection, Pharynx Normal, Moist Mucous Membranes, Other (poor dentition) Neck: Full Range of Motion, Normal Inspection, Non Tender, Supple Respiratory: Chest Non Tender, Lungs Clear, Normal Breath Sounds, No Accessory Muscle Use, No Respiratory Distress Cardiovascular: Regular Rate, Rhythm, No Gallop, No JVD, No Murmur Gastrointestinal: Normal Bowel Sounds, No Organomegaly, No Pulsatile Mass, Non Tender, Soft Back: Normal Inspection, No CVA Tenderness, No Vertebral Tenderness Extremity: Normal Capillary Refill, Normal Range of Motion, Non Tender, No Calf Tenderness, Pedal Edema Neurologic/Psychiatric: Alert, Oriented x3, Normal Mood/Affect, legal compliance officer II-XII Norm as Tested, Abnormal Gait, Motor Weakness Skin: Normal Color, Warm/Dry Results/Procedures Lab Patient resulted labs reviewed. FIM Transfers Therapy Code Descriptions/Definitions Functional [place] Measure: 0=Not Assessed/NA 4=Minimal Assistance 1=Total Assistance 5=Supervision or Setup 2=Maximal Assistance 6=Modified [place] 3=Moderate Assistance 7=Complete IndependenceSCALE: Activities may be completed with or without assistive devices. 0-Ttdscrxzlm-vdddarm completes the activity by him/herself with no assistance from a helper. 5-Set-up or Clean-up Assistance-helper sets up or cleans up; patient completes activity. [place] assists only prior to or following the activity. 4-Supervision or Touching Assistance-helper provides verbal cues and/or touching/steadying and/or contact guard assistance as patient completes activity. Assistance may be provided throughout the activity or intermittently. 3-Partial/Moderate Assistance-helper does LESS THAN HALF the effort. [place] lifts, holds or supports trunk or limbs, but provides less than half the effort. 2-Substantial/Maximal Assistance-helper does MORE THAN HALF the effort. [place] lifts or holds trunk or limbs and provides more than half the effort. 2-Vwpontfbm-rhjgnu does ALL the effort. Patient does none of the effort to complete the activity. Or, the assistance of 2 or more helpers is required for the patient to complete the activity. If activity was not attempted, code reason: 7-Patient Refused. 9-Not Applicable-not attempted and the patient did not perform the activity before the current illness, exacerbation or injury. 10-Not Attempted due to Environmental Limitations-(lack of equipment, weather restraints, etc.). 88-Not Attempted due to Medical Conditions or Safety Concerns. Roll Left to Right (QC): 4 Sit to Lying (QC): 4 Sit to Stand (QC): 5 Chair/Dqi-vb-Gmocu Xfer(QC): 5 Car Transfer (QC): 4 Gait Training Does the Patient Walk?: Yes Distance: 100' x2 Walk 10 feet (QC): 5 Walk 50 ft with 2 Turns(QC): 5 Walk 150 ft (QC): 5 Walking 10ft/uneven surface-QC: 4 Gait Persons Needed: 1 Gait Assistive Device: FWW Wheelchair Training Does the Pt Use a Wheelchair?: No Wheel 50 ft with 2 turns (QC): 9 Wheel 150 ft (QC): 9 Stair Training 1 Step (curb) (QC): 3 4 Steps (QC): 88 12 Steps (QC): 9 Balance Picking up an Object (QC): 88 ADL-Treatment Eating (QC): 6 Oral Hygiene (QC): 4 (SBA standing at sink to brush teeth.) Bathing Location: L Arm, R Arm, L Upper Leg, R Upper Leg, L Lower Leg (including foot), R Lower Leg (including foot), Chest, Abdomen, Buttocks, Perineal Area Shower/Bathe Self (QC): 3 (Pt requires A with back and washing hair (pt gets this assist from children at home as well). At PLOF with showering.) Upper Body Dressing (QC): 5 (s/u) Lower Body Dressing (QC): 3 (min A due to damp skin/ swelling decreasing reac mell ability.) On/Off Footwear (QC): 1 (TD as OT completes wrapping from distal toes to knees.) Toileting Hygiene (QC): 4 (SBA during bottom care in shower. IND in sit with phoebe care.) Toilet Transfer (QC): 4 (SBA, use of walker.) Assessment/Plan Assessment and Plan Assess & Plan/Chief Complaint Assessment: Debility Hyponatremia holding HCTZ Severe weakness Dysphagia with gastric ulcers in the past on EGD and EGD revealed gastritis on EGD per Dr Astorga 06/14/20 HTN GERD Glaucoma Gastroparesis Edema legs Plan: Monitor closely Check labs Home meds 06/12/20: Monitor closely Hold HCTZ Monitor BP 06/13/20: Monitor BP Monitor for pain 06/14/20: Appreciate Dr Astorga for EGD Monitor closely 06/15/20: Monitor dysphagia Monitor for falls 06/16/20: Monitor dysphagia BP ok Supp if needed 06/17/20: Monitor sodium level Monitor dysphagia 06/18/20: Salt tablets and fluid restriction Monitor closely 06/19/20: Dr Valerio consult Norvasc 5mg Edema management Fluid restriction with salt tablets 06/20/20: Diuretic per Cardiology Fluid restriction Monitor closely 06/21/20: Wrap legs Lasix Monitor closely 06/22/20: Monitor Lasix and dyspnea Monitor for falls 06/23/20: Monitor labs Fluid restriction (1) Debility (2) Generalized weakness Status: Acute (3) Hyponatremia Status: Acute (4) Electrolyte abnormality (5) Essential (primary) hypertension Status: Chronic MARKO ANDERS DO Jun 23, 2020 14:07
[2020-06-23 16:00] VITALS: BP 99/51
[2020-06-23] MEDS: PANTOPRAZOLE 40 MG (PROTONIX) TAB PO SCH (18:13)
[2020-06-23] MEDS: MIRTAZAPINE 15 MG (REMERON) TAB PO SCH (20:35)
[2020-06-23] MEDS: MELATONIN 3 MG TABLET PO PRN (20:40)
[2020-06-24 05:05] LABS: BASOPHILS # (AUTO) 0.1 10^3/uL (0.0-0.1); BASOPHILS % (AUTO) 1 % (0-10); EOSINOPHILS # (AUTO) 0.6 10^3/uL (0.0-0.3); EOSINOPHILS % (AUTO) 8 % (0-10); HEMATOCRIT 33 % (35-52); HEMOGLOBIN 11.1 g/dL (11.5-16.0); LYMPHOCYTES # (AUTO) 1.7 10^3/uL (1.0-4.0); LYMPHOCYTES % (AUTO) 24 % (12-44); MEAN CORPUSCULAR HEMOGLOBIN 31 pg (25-34); MEAN CORPUSCULAR HGB CONC 33 g/dL (32-36); MEAN CORPUSCULAR VOLUME 92 fL (80-99); MEAN PLATELET VOLUME 9.2 fL (9.0-12.2); MONOCYTES # (AUTO) 0.7 10^3/uL (0.0-1.0); MONOCYTES % (AUTO) 10 % (0-12); NEUTROPHILS % (AUTO) 56 % (42-75); PLATELET COUNT 199 10^3/uL (130-400)
[2020-06-24 05:25] VITALS: BP 143/62
[2020-06-24 05:49] LABS: ALBUMIN 2.8 GM/DL (3.2-4.5); BILIRUBIN,TOTAL 0.4 MG/DL (0.1-1.0); CALCIUM 7.8 MG/DL (8.5-10.1); CREATININE SERUM 0.89 MG/DL (0.60-1.30); POTASSIUM 3.4 MMOL/L (3.6-5.0); TOTAL PROTEIN 5.3 GM/DL (6.4-8.2)
[2020-06-24] MEDS: METOCLOPRAMIDE 5 MG (REGLAN) TAB PO SCH ×2 (06:13→16:22)
[2020-06-24] MEDS: RT-ALBUTEROL SULF 2.5 MG/3 ML PRE-MIX VIAL INH SCH ×2 (06:48→23:07)
--- NOTE | 2020-06-24 08:06 | PM&R Progress Note ---
Subjective HPI/CC On Admission Date Seen by Provider: Jun 24, 2020 Time Seen by Provider: 09:00 Subjective/Events-last exam 06/24/20: Pt set for DC tomorrow Sodium level 142 Will DC the fluid restriction Adding one sodium tablet a day instead of BID She will need home health with Gabriella 06/23/20: Patient feels great Fluid restriction maintained without diff Refuses Reglan due to lose stools Monitor closely 06/22/20: Patient doing well Dyspnea improved No issues Ate good lunch 06/21/20: Lasix started by Dr Valerio and that seems to be helping Antifungal powder helping a bit No pain reported Tired and sleeps a lot 06/20/20: Pt doing a lot better but SOB BNP is elevated at 291 CXR is negative Sodium level 133 BP okay but is labile Breast excoriation will be managed with Micanozol Powder Reaching out to Dr Valerio regarding diuretic 06/19/20: Pt doing okay Having a little SOB and some edema so need to consult Dr. Valerio Amlodipine will be started at 5 mg Wheezing a bit so will initiate IS Had some loose stools today 06/18/20: Pt doing pretty well but concerned about her sodium level Considering I stopped the hydrochlorothiazide she is probably at baseline 132- 133 although she would want to try the fluid restriction and sodium tablet so we will do that Ambulating around doing well Bowels moved yesterday Overall pretty tired 06/17/20: Pt doing much better Less dysphasia Sodium level of 132 Loose stools continue Overall much better 06/16/20: Patient doing well today Noted constipation EGD discussed BP varies and it makes her nervous 06/15/20: Patient feels better EGD yesterday No complaints Son visited today 06/14/20: Doing well EGD reviewed Feels better BM yesterday 06/13/20: Patient doing well No issues Had her COVID vaccine 2nd dose 05/11/20 Coughed on Lactulose so initiated IS No pain reported 06/12/20: Pt doing really well today Sodium level up at 133 Ordered Reglan BID the way she takes it Podiatry consult initiated Bowels moved yesterday Review of Systems General: Fatigue, Malaise Objective Exam Vital Signs Vital Signs Date Time Temp Pulse Resp B/P (MAP) Pulse Ox O2 Delivery O2 Flow Rate FiO2 06/24/20 21:14 Room Air 06/24/20 16:00 36.0 74 16 145/65 (88) 93 Capillary Refill : General Appearance: No Apparent Distress, WD/WN, Chronically ill HEENT: PERRL/EOMI, Normal ENT Inspection, Pharynx Normal, Moist Mucous Membranes, Other (poor dentition) Neck: Full Range of Motion, Normal Inspection, Non Tender, Supple Respiratory: Chest Non Tender, Lungs Clear, Normal Breath Sounds, No Accessory Muscle Use, No Respiratory Distress Cardiovascular: Regular Rate, Rhythm, No Gallop, No JVD, No Murmur Gastrointestinal: Normal Bowel Sounds, No Organomegaly, No Pulsatile Mass, Non Tender, Soft Back: Normal Inspection, No CVA Tenderness, No Vertebral Tenderness Extremity: Normal Capillary Refill, Normal Range of Motion, Non Tender, No Calf Tenderness, Pedal Edema Neurologic/Psychiatric: Alert, Oriented x3, Normal Mood/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 FIM Transfers Therapy Code Descriptions/Definitions Functional [place] Measure: 0=Not Assessed/NA 4=Minimal Assistance 1=Total Assistance 5=Supervision or Setup 2=Maximal Assistance 6=Modified [place] 3=Moderate Assistance 7=Complete IndependenceSCALE: Activities may be completed with or without assistive devices. 5-Iirvcpderl-rtnmhsf completes the activity by him/herself with no assistance from a helper. 5-Set-up or Clean-up Assistance-helper sets up or cleans up; patient completes activity. [place] assists only prior to or following the activity. 4-Supervision or Touching Assistance-helper provides verbal cues and/or touching/steadying and/or contact guard assistance as patient completes activity. Assistance may be provided throughout the activity or intermittently. 3-Partial/Moderate Assistance-helper does LESS THAN HALF the effort. [place] lifts, holds or supports trunk or limbs, but provides less than half the effort. 2-Substantial/Maximal Assistance-helper does MORE THAN HALF the effort. [place] lifts or holds trunk or limbs and provides more than half the effort. 8-Lywondilm-jydgxh does ALL the effort. Patient does none of the effort to complete the activity. Or, the assistance of 2 or more helpers is required for the patient to complete the activity. If activity was not attempted, code reason: 7-Patient Refused. 9-Not Applicable-not attempted and the patient did not perform the activity before the current illness, exacerbation or injury. 10-Not Attempted due to Environmental Limitations-(lack of equipment, weather restraints, etc.). 88-Not Attempted due to Medical Conditions or Safety Concerns. Roll Left to Right (QC): 4 Sit to Lying (QC): 4 Sit to Stand (QC): 5 Chair/Haj-wj-Pxlgq Xfer(QC): 5 Car Transfer (QC): 4 Gait Training Does the Patient Walk?: Yes Distance: 100' x2 Walk 10 feet (QC): 5 Walk 50 ft with 2 Turns(QC): 5 Walk 150 ft (QC): 5 Walking 10ft/uneven surface-QC: 4 Gait Persons Needed: 1 Gait Assistive Device: FWW Wheelchair Training Does the Pt Use a Wheelchair?: No Wheel 50 ft with 2 turns (QC): 9 Wheel 150 ft (QC): 9 Stair Training 1 Step (curb) (QC): 3 4 Steps (QC): 88 12 Steps (QC): 9 Balance Picking up an Object (QC): 88 ADL-Treatment Eating (QC): 6 Oral Hygiene (QC): 4 (SBA standing at sink to brush teeth.) Bathing Location: L Arm, R Arm, L Upper Leg, R Upper Leg, L Lower Leg (including foot), R Lower Leg (including foot), Chest, Abdomen, Buttocks, Perineal Area Shower/Bathe Self (QC): 3 (Pt requires A with back and washing hair (pt gets this assist from children at home as well). At PLOF with showering.) Upper Body Dressing (QC): 5 (s/u) Lower Body Dressing (QC): 3 (min A due to damp skin/ swelling decreasing reaching ability.) On/Off Footwear (QC): 1 (TD as OT completes wrapping from distal toes to knees.) Toileting Hygiene (QC): 4 (SBA during bottom care in shower. IND in sit with phoebe care.) Toilet Transfer (QC): 4 (SBA, use of walker.) Assessment/Plan Assessment and Plan Assess & Plan/Chief Complaint Assessment: Debility Hyponatremia holding HCTZ Severe weakness Dysphagia with gastric ulcers in the past on EGD and EGD revealed gastritis on EGD per Dr Astorga 06/14/20 HTN GERD Glaucoma Gastroparesis Edema legs Plan: Monitor closely Check labs Home meds 06/12/20: Monitor closely Hold HCTZ Monitor BP 06/13/20: Monitor BP Monitor for pain 06/14/20: Appreciate Dr Astorga for EGD Monitor closely 06/15/20: Monitor dysphagia Monitor for falls 06/16/20: Monitor dysphagia BP ok Supp if needed 06/17/20: Monitor sodium level Monitor dysphagia 06/18/20: Salt tablets and fluid restriction Monitor closely 06/19/20: Dr Valerio consult [facility] 5mg Edema management Fluid restriction with salt tablets 06/20/20: Diuretic per Cardiology Fluid restriction Monitor closely 06/21/20: Wrap legs Lasix Monitor closely 06/22/20: Monitor Lasix and dyspnea Monitor for falls 06/23/20: Monitor labs Fluid restriction 06/24/20: Lift fluid restriction Salt tablet once daily DC home tomorrow on HH (1) Debility (2) Generalized weakness Status: Acute (3) Hyponatremia Status: Acute (4) Electrolyte abnormality (5) Essential (primary) hypertension Status: Chronic MARKO ANDERS DO Jun 24, 2020 08:06
[2020-06-24] MEDS: FUROSEMIDE 20 MG (LASIX) TAB PO SCH (09:13)
[2020-06-24] MEDS: lisINopril 20 MG (PRINIVIL) TABLET PO SCH (09:13)
[2020-06-24] MEDS: ASPIRIN E.C. 81 MG (ECOTRIN) TAB PO SCH (09:13)
[2020-06-24] MEDS: amLODIPine 5 MG (NORVASC) TAB PO SCH (09:13)
[2020-06-24] MEDS: SENNA W/DOCUSATE (SENOKOT S) TABLET PO SCH ×2 (09:13→20:30)
[2020-06-24] MEDS: CARVEDILOL 12.5 MG (COREG) TABLET PO SCH ×2 (09:13→20:32)
[2020-06-24] MEDS: DOCUSATE SODIUM 100 MG (COLACE) CAP PO SCH ×2 (09:14→20:30)
[2020-06-24] MEDS: MICONAZOLE 2% POWDER (DESENEX AF) 90 GM TOP SCH ×2 (09:15→20:34)
[2020-06-24] MEDS: CLOTRIMAZOLE 1% CREAM (LOTRIMIN) 30 GM TOP PRN ×2 (09:15→20:34)
[2020-06-24] MEDS: TIMOLOL MALEATE 0.5% 5 ML (TIMOPTIC) BTL OS SCH ×2 (09:16→20:32)
[2020-06-24] MEDS: polyethylene glycoL POWDER 17 GM (MIRALAX) PACK PO SCH ×2 (09:16→20:34)
[2020-06-24] MEDS: SODIUM CHLORIDE 1 GM TABLET PO SCH (09:18)
[2020-06-24] MEDS: BETAMETHASONE/CLOTRIM CREAM (LOTRISONE) 45 GM TP SCH ×2 (09:19→20:37)
[2020-06-24] MEDS: CLOTRIMAZOLE 1% CREAM (LOTRIMIN) 30 GM TOP SCH ×2 (09:19→20:36)
--- NOTE | 2020-06-24 09:24 | Cardiology Progress Note ---
Subjective Date Seen by Provider: Jun 24, 2020 Time Seen by Provider: 09:19 Subjective/Events-last exam Patient is sittin gup in chair, no new complaints. Denies any chest pain Review of Systems General: No Chills, No Night Sweats, No Fatigue, No Malaise, No Appetite, No Other HEENT: No Head Aches, No Visual Changes, No Eye Pain, No Ear Pain, No Dysphasia, No Sinus Congestion, No Post Nasal Drip, No Sore Throat, No Other Pulmonary: No Dyspnea, No Cough, No Pleuritic Chest Pain, No Other Cardiovascular: No: Chest Pain, Palpitations, Orthopnea, Paroxysmal Noc. Dyspnea, Edema, Lt Headedness, Other Objective-Cardiology Exam Last Set of Vital Signs Vital Signs 06/25/20 06/25/20 06/25/20 06/25/20 05:49 06:43 08:07 09:36 Temp 36.0 Pulse 79 Resp 20 B/P (MAP) 145/66 (92) Pulse Ox 92 O2 Delivery Room Air Capillary Refill : I&O Intake and Output 06/25/20 00:00 Intake Total 1100 ml Balance 1100 ml Intake Oral 1100 ml # Voids 9 General: Alert, Oriented X3, Cooperative HEENT: Atraumatic, PERRLA Neck: Supple, No JVD, No Thyromegaly Lungs: Clear to Auscultation, Normal Air Movement Heart: Regular Rate, Normal S1, Normal S2, No Murmurs Abdomen: Normal Bowel Sounds, Soft, No Tenderness, No Hepatosplenomegaly, No Masses Extremities: Other (+1 edema BLE) Skin: No Rashes Neuro: Normal Gait, Cranial Nerves 3-12 NL Psych/Mental Status: Mental Status NL, Mood NL Results Lab A/P-Cardiology Admission Diagnosis Hyponatremia HTN Dyspnea HLP Assessment/Plan Generalized debility/weakness, continue with PT/OT Hyponatremia, improving, HCTZ discontinued, currently on fluid restriction Hypertension, controlled, continue to monitor Dyspnea, patient reports improvement. Echocardiogram was done on 06/19/2020 showing normal LV size, EF 55-65 percent, grade 2 diastolic dysfunction, left atrium moderately dilated. Chronic lower extremity edema, patient reports worsening over the past month. I will diurese, continue with Michel wraps. Hyperlipidemia, monitor as outpatient. Mild bilateral carotid stenosis, last ultrasound was done in September 2019, continue to monitor Mild pulmonary hypertension, last echocardiogram was done in September 2019 showing PA pressure 40-45 mmHg. Continue to monitor Multiple risk factors for underlying coronary artery disease, last stress test done in September 2019 showing no significant ischemia. Continue to monitor GERD Patient was seen and evaluated with Bridget, examination performed, management plan was discussed, agree with the current scribed note, I made few changes to the note using Italic font Patient was seen, feeling comfortable, hyponatremia is better Continue to monitor BRIDGET VELASQUEZ Jun 24, 2020 09:24 MARIA ELENA DUDLEY MD Jun 25, 2020 10:58
--- NOTE | 2020-06-24 10:28 | Occupational Ther Daily Note ---
OT Current Status-Daily Note Subjective No pain reported. Appearance Pt. up in chair. Agrees to work with OT. Pt. alert and oriented. Mental Status/Objective Patient Orientation: Person, Place, Time, Situation ADL-Treatment Therapy Code Descriptions/Definitions Functional [place] Measure: 0=Not Assessed/NA 4=Minimal Assistance 1=Total Assistance 5=Supervision or Setup 2=Maximal Assistance 6=Modified [place] 3=Moderate Assistance 7=Complete IndependenceSCALE: Activities may be completed with or without assistive devices. 8-Onoowvbhwh-qssqory completes the activity by him/herself with no assistance from a helper. 5-Set-up or Clean-up Assistance-helper sets up or cleans up; patient completes activity. [place] assists only prior to or following the activity. 4-Supervision or Touching Assistance-helper provides verbal cues and/or touching/steadying and/or contact guard assistance as patient completes activity. Assistance may be provided throughout the activity or intermittently. 3-Partial/Moderate Assistance-helper does LESS THAN HALF the effort. [place] lifts, holds or supports trunk or limbs, but provides less than half the effort. 2-Substantial/Maximal Assistance-helper does MORE THAN HALF the effort. [place] lifts or holds trunk or limbs and provides more than half the effort. 8-Sthrfmzro-ijhdwv does ALL the effort. Patient does none of the effort to complete the activity. Or, the assistance of 2 or more helpers is required for the patient to complete the activity. If activity was not attempted, code reason: 7-Patient Refused. 9-Not Applicable-not attempted and the patient did not perform the activity before the current illness, exacerbation or injury. 10-Not Attempted due to Environmental Limitations-(lack of equipment, weather restraints, etc.). 88-Not Attempted due to Medical Conditions or Safety Concerns. Eating (QC): 6 Oral Hygiene (QC): 6 Shower/Bathe Self (QC): 5 (Set up) Upper Body Dressing (QC): 5 Lower Body Dressing (QC): 3 (Pt. requires assistance threading bilateral LE into brief and pants, but is able to don herself over hips. Mod assist overall. Pt's family will assist her at home. Pt. declines attempts at practicing AE.) On/Off Footwear: 2 Toileting Hygiene (QC): 6 Toilet Transfer (QC): 6 Other Treatment Pt. seen this date for showering/dressing activity. After ADLs, pt. ambulated independently to chair in room and OT completed gentle retrograde massage with lotion to bilateral LE for swelling. Pt. verbalizes that "this feels good." OT used PRINCESS wraps to wrap legs for edema control. All needs met up in chair. Education OT Patient Education: Correct positioning, Modified ADL techniques, Progress toward Goal/Update tx plan, Purpose of tx/functional activities, Reviewed pre cautions, Rehab process, Transfer techniques Teaching Recipient: Patient Teaching Methods: Demonstration, Discussion Response to Teaching: Verbalize Understanding, Return Demonstration OT Short Term Goals Short Term Goals Time Frame: Jun 18, 2020 Eatin Oral hygiene: 5 Toileting hygiene: 4 Shower/bathe self: 4 Upper body dressin Lower body dressin (With AE) Putting on/taking off footwear: 4 (With AE) OT Shotgun Shell Loading Machine Operator Goals Shotgun Shell Loading Machine Operator Goals Time Frame: Jul 02, 2020 Eating (QC): 6 Oral Hygiene (QC): 6 Toileting Hygiene (QC): 6 Shower/Bathe Self (QC): 5 Upper Body Dressing (QC): 6 Lower Body Dressing (QC): 5 On/Off Footwear (QC): 5 (With AE) Additional Goals: 1-Demonstrate ADL Tasks, 2-Verbalize Understanding, 3- ImproveStrength/Jasper 1=Demonstrate adherence to instructed precautions during ADL tasks. 2=Patient will verbalize/demonstrate understanding of assistive devices/modifications for ADL. 3=Patient will improve strength/tolerance for activity to enable patient to perform ADL's. OT Education/Plan Problem List/Assessment Assessment: Decreased Activ Tolerance Discharge Recommendations Plan/Recommendations: Continue POC Therapy Discharge Recommendati: Home & Family, Post Acute OT Treatment Plan/Plan of Care Treatment,Training & Education: Yes Patient would benefit from OT for education, treatment and training to promote independence in ADL's, mobility, safety and/or upper extremity function for AD L's. Plan of Care: ADL Retraining, Functional Mobility, UE Funct Exercise/Act Treatment Duration: Jul 02, 2020 Frequency: At least 5 of 7 days/Wk (IRF) Estimated Hrs Per Day: 1.5 hours per day Agreement: Yes Rehab Potential: Good Time/GCodes Start Time: 08:15 Stop Time: 09:20 Total Time Billed (hr/min): 65 Billed Treatment Time 1, ADL x 4 GLENNA DE PAZ OT Jun 24, 2020 10:28
--- NOTE | 2020-06-24 10:28 | Physical Therapy Daily Note ---
PT Daily Note-Current Subjective Pt. excited to feel so much better and is anxious to go home tomorrow. No c/o pain. SOB is a little better. Pain Location: No Pain Reported Mental Status Patient Orientation: Normal For Age Attachments: Other-See Comments (mask while out of room) Transfers SCALE: Activities may be completed with or without assistive devices. 8-Eepooaxwpy-jsjpnwu completes the activity by him/herself with no assistance from a helper. 5-Set-up or Clean-up Assistance-helper sets up or cleans up; patient completes activity. [place] assists only prior to or following the activity. 4-Supervision or Touching Assistance-helper provides verbal cues and/or touching/steadying and/or contact guard assistance as patient completes activity. Assistance may be provided throughout the activity or intermittently. 3-Partial/Moderate Assistance-helper does LESS THAN HALF the effort. [place] lifts, holds or supports trunk or limbs, but provides less than half the effort. 2-Substantial/Maximal Assistance-helper does MORE THAN HALF the effort. [place] lifts or holds trunk or limbs and provides more than half the effort. 5-Vxaijzokk-vnkofr does ALL the effort. Patient does none of the effort to complete the activity. Or, the assistance of 2 or more helpers is required for the patient to complete the activity. If activity was not attempted, code reason: 7-Patient Refused. 9-Not Applicable-not attempted and the patient did not perform the activity before the current illness, exacerbation or injury. 10-Not Attempted due to Environmental Limitations-(lack of equipment, weather restraints, etc.). 88-Not Attempted due to Medical Conditions or Safety Concerns. Roll Left & Right (QC): 6 Sit to Lying (QC): 6 Lying to Sitting/Side of Bed(Q: 6 Sit to Stand (QC): 6 Chair/Pqb-am-Wwvjh Xfer(QC): 6 Toilet Transfer (QC): 6 Car Transfer (QC): 4 Weight Bearing Right Lower Extremity: Right Full Weight Bearing Left Lower Extremity: Left Full Weight Bearing Gait Training Does the Patient Walk?: Yes Walk 10 feet (QC): 6 Walk 50 ft with 2 Turns(QC): 6 Walk 150 ft (QC): 5 Walking 10ft/uneven surface-QC: 5 Gait Persons Needed: 1 Gait Assistive Device: FWW pt. does well with short dist, after approx 75 ft pt becomes SOB and fatigued and needs rest break in sitting, O2 sats on room air >90% Wheelchair Training Does the Pt Use a Wheelchair?: No Stair Training 1 Step (curb) (QC): 7 pt. declined stairs, has no stairs, doesnt go anywhere to use stairs Balance Picking up an Object (QC): 88 Exercises NuStep Minutes: 8 NuStep Workload: 2 Treatments pt. toileted in bthrm SBA managing all indep and safely Assessment Current Status: Good Progress more indep in funct mob PT Short Term Goals Short Term Goals Time Frame: Jun 18, 2020 Roll Left & Right: 6 Sit to lyin Lying to sitting on side of be: 5 Sit to stand: 5 Chair/cqe-sp-ccnwz transfer: 5 Toilet transfer: 5 Car transfer: 5 Walk 10 feet: 5 Walk 50 feet with two turns: 5 Walk 150 feet: 5 Walking 10ft on uneven surface: 5 1 step (curb): 4 4 steps: 4 12 steps: 9 Picking up objects: 4 PT Jail Goals Jail Goals PT Back Tender [place]ier Goals Time Frame: Jul 02, 2020 Roll Left & Right (QC): 6 Sit to Lying (QC): 6 Lying-Sitting on Side/Bed(QC): 6 Sit to Stand (QC): 6 Chair/Uig-mi-Snjzc Xfer(QC): 6 Toilet Transfer (QC): 6 Car Transfer (QC): 6 Does the Patient Walk: Yes Walk 10 feet (QC): 6 Walk 50ft with 2 Turns (QC): 6 Walk 150 ft (QC): 6 Walking 10ft on Uneven Surface: 6 1 Step (curb) (QC): 6 4 Steps (QC): 5 12 Steps (QC): 9 Picking up an Object (QC): 5 Does the Pt use WC or Scooter?: No Wheel 50 feet with 2 turns (QC: 9 Type: N/A Wheel 150 feet: 9 Type: N/A PT Plan Treatment/Plan Treatment Plan: Continue Plan of Care Treatment Plan: Bed Mobility, Concurrent Therapy, Education, Functional Activity Jasper, Functional Strength, Group Therapy, Gait, Safety, Therapeutic Exercise, Transfers Treatment Duration: Jul 02, 2020 Frequency: At least 5 of 7 days/Wk (IRF) Estimated Hrs Per Day: 1.5 hours per day Patient and/or Family Agrees t: Yes Safety Risks/Education Patient Education: Gait Training, Transfer Techniques, Correct Positioning, Disease Process, Safety Issues Teaching Recipient: Patient Teaching Methods: Demonstration, Discussion Response to Teaching: Verbalize Understanding, Return Demonstration, Reinforcement Needed Time/GCodes Time In: 930 Time Out: 1030 Total Billed Treatment Time: 60 Total Billed Treatment 1,EX15mm,FA25m,GT20m CEDRIC DODD MAP COLORER Jun 24, 2020 10:28
[2020-06-24] MEDS ORDERED: ALPR.25T PO (10:53)
[2020-06-24] MEDS ORDERED: CLOT15CR6 TP (10:53)
[2020-06-24] MEDS ORDERED: ALBU2.5V4 INH (10:53)
[2020-06-24] MEDS ORDERED: POTA10TA36 PO (10:53)
[2020-06-24] MEDS ORDERED: FURO20TA4 PO (10:53)
[2020-06-24] MEDS ORDERED: MICO90PO TOP (10:53)
[2020-06-24] MEDS ORDERED: AMLO-250 PO (10:53)
[2020-06-24] MEDS ORDERED: NF-NACL1GT PO (10:53)
--- NOTE | 2020-06-24 10:56 | D/C HH Face to Face Order ---
D/C Face to Face Orders Reconcile Patient Problems Problems Reviewed?: Yes Instructions for Patient [facility] Patient Instructions/FollowUp: Dr Corona as scheduled Physician to follow Patient: Cj Discharge Diet for Home: No Restrictions Patient Problems: Hyponatremia HTN Debility Wheezing Patient Data-Allergies,Ht & Wt Patient Allergies: Coded Allergies: Penicillins (Verified Allergy, Unknown, 10/01/19) Height (Feet): 5 Height (Inches): 2.00 Weight (Pounds): 188 Weight (Ounces): 1.6 Home Health Need/Face to Face Date of Face to Face: Jun 24, 2020 Clinical Findings: Generalized weakness and fatigue, Instability, Muscle weakness, Shortness of breath, Unsteady gait I have seen Pt veyu-sn-pdph: Yes Discharged To: Home Diagnosis/Conditions: Hyponatremia HTN Debility Wheezing Patient is Homebound due to: He fall risk due to instabilty, Muscle weakness Homebound Status Due to the above stated illness, injury or surgical procedure (medical condition or diagnosis) and associated clinical findings, the patient is homebound because of his/her inability to leave home except with aid of a supportive device and/or person AND leaving the home requires a considerable and taxing effort or is medically contraindicated. Pt req the following assistanc: Walker Home Health Nursing Orders Home Health Services Order: Nursing Services, -Evaluate & Treat, Physical Therapy-Evaluate & Treat Certify Stmt I certify that this patient is under my care and that I, a nurse practitioner or a physician; a tutoring assistant working with me, had a face to face encounter that - meets the physician face to face encounter requirements with this patient as dated. MARKO CORONA DO Jun 24, 2020 10:56
[2020-06-24] MEDS ORDERED: KCL 10 MEQ TAB (MICRO K) PO NR (11:00)
--- NOTE | 2020-06-24 12:05 | Occupational Ther Daily Note ---
OT Current Status-Daily Note Subjective No pain reported. Mental Status/Objective Patient Orientation: Person, Place, Time, Situation ADL-Treatment Therapy Code Descriptions/Definitions Functional Bureau Measure: 0=Not Assessed/NA 4=Minimal Assistance 1=Total Assistance 5=Supervision or Setup 2=Maximal Assistance 6=Modified Bureau 3=Moderate Assistance 7=Complete IndependenceSCALE: Activities may be completed with or without assistive devices. 9-Oefqddpnhx-bpdahgv completes the activity by him/herself with no assistance from a helper. 5-Set-up or Clean-up Assistance-helper sets up or cleans up; patient completes activity. [place] assists only prior to or following the activity. 4-Supervision or Touching Assistance-helper provides verbal cues and/or touching/steadying and/or contact guard assistance as patient completes activity. Assistance may be provided throughout the activity or intermittently. 3-Partial/Moderate Assistance-helper does LESS THAN HALF the effort. [place] lifts, holds or supports trunk or limbs, but provides less than half the effort. 2-Substantial/Maximal Assistance-helper does MORE THAN HALF the effort. [place] lifts or holds trunk or limbs and provides more than half the effort. 5-Zeravahzh-wnccjg does ALL the effort. Patient does none of the effort to complete the activity. Or, the assistance of 2 or more helpers is required for the patient to complete the activity. If activity was not attempted, code reason: 7-Patient Refused. 9-Not Applicable-not attempted and the patient did not perform the activity before the current illness, exacerbation or injury. 10-Not Attempted due to Environmental Limitations-(lack of equipment, weather restraints, etc.). 88-Not Attempted due to Medical Conditions or Safety Concerns. Toileting Hygiene (QC): 6 Toilet Transfer (QC): 6 Other Treatment Pt. agrees to work with OT. Pt. able to control her lift chair with remote and put legs down. Stands at walker with Mod I and ambulates to therapy gym. Completes 10 minutes at min resistance on arm bike to increase overall endurance and strength. Tolerated treatment well. Ambulated back to room and toileted with Mod I. Pt. transferred to sink and washed hands. Ambulated to chair and was able to put her own legs back up. All needs met. Education OT Patient Education: Correct positioning, Exercise program, Progress toward Goal/Update tx plan, Purpose of tx/functional activities, Reviewed precautions, Rehab process Teaching Recipient: Patient Teaching Methods: Demonstration, Discussion Response to Teaching: Verbalize Understanding, Return Demonstration OT Short Term Goals Short Term Goals Time Frame: Jun 18, 2020 Eatin Oral hygiene: 5 Toileting hygiene: 4 Shower/bathe self: 4 Upper body dressin Lower body dressin (With AE) Putting on/taking off footwear: 4 (With AE) OT Cdl Program Coordinator Goals Shelter Goals Time Frame: Jul 02, 2020 Eating (QC): 6 Oral Hygiene (QC): 6 Toileting Hygiene (QC): 6 Shower/Bathe Self (QC): 5 Upper Body Dressing (QC): 6 Lower Body Dressing (QC): 5 On/Off Footwear (QC): 5 (With AE) Additional Goals: 1-Demonstrate ADL Tasks, 2-Verbalize Understanding, 3- ImproveStrength/Jasper 1=Demonstrate adherence to instructed precautions during ADL tasks. 2=Patient will verbalize/demonstrate understanding of assistive devices/mod ifications for ADL. 3=Patient will improve strength/tolerance for activity to enable patient to perform ADL's. OT Education/Plan Discharge Recommendations Plan/Recommendations: Continue POC Treatment Plan/Plan of Care Treatment,Training & Education: Yes Patient would benefit from OT for education, treatment and training to promote independence in ADL's, mobility, safety and/or upper extremity function for ADL's. Plan of Care: ADL Retraining, Functional Mobility, UE Funct Exercise/Act Treatment Duration: Jul 02, 2020 Frequency: At least 5 of 7 days/Wk (IRF) Estimated Hrs Per Day: 1.5 hours per day Agreement: Yes Rehab Potential: Good Time/GCodes Start Time: 11:05 Stop Time: 11:30 Total Time Billed (hr/min): 25 Billed Treatment Time 1, ADL x 15minutes, Ex x 10minutes GLENNA DE PAZ OT Jun 24, 2020 12:05
--- NOTE | 2020-06-24 13:46 | Physical Therapy Daily Note ---
PT Daily Note-Current Subjective Pt. up in recliner, requests in room Rx as she does not like wearing the mask for exercises. Pt. agrees to LE exercises in recliner. Pts. daughter present and supportive Pain Location: No Pain Reported Mental Status Patient Orientation: Normal For Age Transfers SCALE: Activities may be completed with or without assistive devices. 3-Ioqcbclojj-wbykbhk completes the activity by him/herself with no assistance from a helper. 5-Set-up or Clean-up Assistance-helper sets up or cleans up; patient completes activity. [place] assists only prior to or following the activity. 4-Supervision or Touching Assistance-helper provides verbal cues and/or touching/steadying and/or contact guard assistance as patient completes activity. Assistance may be provided throughout the activity or intermittently. 3-Partial/Moderate Assistance-helper does LESS THAN HALF the effort. [place] lifts, holds or supports trunk or limbs, but provides less than half the effort. 2-Substantial/Maximal Assistance-helper does MORE THAN HALF the effort. [place] lifts or holds trunk or limbs and provides more than half the effort. 5-Uaglannzl-bwcfpe does ALL the effort. Patient does none of the effort to complete the activity. Or, the assistance of 2 or more helpers is required for the patient to complete the activity. If activity was not attempted, code reason: 7-Patient Refused. 9-Not Applicable-not attempted and the patient did not perform the activity before the current illness, exacerbation or injury. 10-Not Attempted due to Environmental Limitations-(lack of equipment, weather restraints, etc.). 88-Not Attempted due to Medical Conditions or Safety Concerns. pt. able to push herself up in recliner with recliner back partially, then needs head back up so she can breath easier Weight Bearing Right Lower Extremity: Right Full Weight Bearing Left Lower Extremity: Left Full Weight Bearing Exercises Supine Ex: Ankle pumps, Quad Set, Glut sets, Heel Slides, Scooting, Straight leg raise, Hip abd/add Supine Reps: 15 Treatments Pt was dispensed Home Exercise Program : written and illustrated guide with large images : LAQ, APs, SLR, GS, QS, HS with instruction for 12 reps x 2 per day. Pt. clarified she could see and could understand the HEP Assessment Current Status: Good Progress PT Short Term Goals Short Term Goals Time Frame: Jun 18, 2020 Roll Left & Right: 6 Sit to lyin Lying to sitting on side of be: 5 Sit to stand: 5 Chair/pza-jf-tvbpc transfer: 5 Toilet transfer: 5 Car transfer: 5 Walk 10 feet: 5 Walk 50 feet with two turns: 5 Walk 150 feet: 5 Walking 10ft on uneven surface: 5 1 step (curb): 4 4 steps: 4 12 steps: 9 Picking up objects: 4 PT Radar Technician Goals Radar Technician Goals PT Correction Goals Time Frame: Jul 02, 2020 Roll Left & Right (QC): 6 Sit to Lying (QC): 6 Lying-Sitting on Side/Bed(QC): 6 Sit to Stand (QC): 6 Chair/Efl-kp-Acmub Xfer(QC): 6 Toilet Transfer (QC): 6 Car Transfer (QC): 6 Does the Patient Walk: Yes Walk 10 feet (QC): 6 Walk 50ft with 2 Turns (QC): 6 Walk 150 ft (QC): 6 Walking 10ft on Uneven Surface: 6 1 Step (curb) (QC): 6 4 Steps (QC): 5 12 Steps (QC): 9 Picking up an Object (QC): 5 Does the Pt use WC or Scooter?: No Wheel 50 feet with 2 turns (QC: 9 Type: N/A Wheel 150 feet: 9 Type: N/A PT Plan Treatment/Plan Treatment Plan: Continue Plan of Care Treatment Plan: Bed Mobility, Concurrent Therapy, Education, Functional Activity Jasper, Functional Strength, Group Therapy, Gait, Safety, Therapeutic Exercise, Transfers Treatment Duration: Jul 02, 2020 Frequency: At least 5 of 7 days/Wk (IRF) Estimated Hrs Per Day: 1.5 hours per day Patient and/or Family Agrees t: Yes Safety Risks/Education Patient Education: Issued Written HEP, Correct Positioning Teaching Recipient: Patient Teaching Methods: Demonstration, Discussion Response to Teaching: Verbalize Understanding, Return Demonstration, Reinforcement Needed Time/GCodes Time In: 1305 Time Out: 1335 Total Billed Treatment Time: 30 Total Billed Treatment 1,EX30m CEDRIC DODD ANIMAL ANATOMY TEACHER Jun 24, 2020 13:46
[2020-06-24 16:00] VITALS: BP 145/65
[2020-06-24] MEDS: PANTOPRAZOLE 40 MG (PROTONIX) TAB PO SCH (18:27)
[2020-06-24] MEDS: MIRTAZAPINE 15 MG (REMERON) TAB PO SCH (20:30)
[2020-06-24] MEDS: MELATONIN 3 MG TABLET PO PRN (20:30)
[2020-06-24] MEDS: ALPRAZolam 0.25 MG (XANAX) TAB PO PRN (23:54)
--- NOTE | 2020-06-25 05:25 | Discharge Summary ---
Diagnosis/Chief Complaint Date of Admission Jun 11, 2020 at 11:34 Date of Discharge Discharge Date: Jun 25, 2020 Discharge Diagnosis Assessment: Debility Hyponatremia holding HCTZ Severe weakness Dysphagia with gastric ulcers in the past on EGD and EGD revealed gastritis on EGD per Dr Astorga 06/14/20 HTN GERD Glaucoma Gastroparesis Edema legs Plan: Monitor closely Check labs Home meds 06/12/20: Monitor closely Hold HCTZ Monitor BP 06/13/20: Monitor BP Monitor for pain 06/14/20: Appreciate Dr Astorga for EGD Monitor closely 06/15/20: Monitor dysphagia Monitor for falls 06/16/20: Monitor dysphagia BP ok Supp if needed 06/17/20: Monitor sodium level Monitor dysphagia 06/18/20: Salt tablets and fluid restriction Monitor closely 06/19/20: Dr Valerio consult Norvasc 5mg Edema management Fluid restriction with salt tablets 06/20/20: Diuretic per Cardiology Fluid restriction Monitor closely 06/21/20: Wrap legs Lasix Monitor closely 06/22/20: Monitor Lasix and dyspnea Monitor for falls 06/23/20: Monitor labs Fluid restriction 06/24/20: Lift fluid restriction Salt tablet once daily DC home tomorrow on HH (1) Debility (2) Generalized weakness Status: Acute (3) Hyponatremia Status: Acute (4) Electrolyte abnormality (5) Essential (primary) hypertension Status: Chronic Discharge Summary Discharge Physical Examination Allergies: Coded Allergies: Penicillins (Verified Allergy, Unknown, 10/01/19) Vitals & I&Os Vital Signs Date Time Temp Pulse Resp B/P (MAP) Pulse Ox O2 Delivery O2 Flow Rate FiO2 06/25/20 18:21 36.0 70 20 131/60 93 Room Air General Appearance: Alert, Oriented X3, Cooperative Respiratory: Clear to Auscultation Cardiovascular: Regular Rate Neuro: Normal Gait, Normal Speech, Strength at 5/5 X4 Ext Psych/Mental Status: Mental Status NL Hospital Course Was the Problem List Reviewed?: Yes Hospital Course: Pt had an uneventful two week hospital course while hospitalized in inpatient rehab. She was able to participate in all therapies and home health will be continuing at [place]. Hyponatremia resolved with sodium tablets so that was changed to once a day and fluid restriction was lifted. Hydrochlorathiazide was discontinued and Lasix 20mg daily with potassium supplement will be maintained to prevent fluid overload. Overall she was able to regain enough function to return to independent living. Labs (last 24 hrs) Laboratory Tests 06/12/20 06:40: White Blood Count 7.2, Red Blood Count 3.51L, Hemoglobin 10.9L, Hematocrit 32L, Mean Corpuscular Volume 90, Mean Corpuscular Hemoglobin 31, Mean Corpuscular Hemoglobin Concent 34, Red Cell Distribution Width 13.3, Platelet Count 164, Mean Platelet Volume 9.2, Immature Granulocyte % (Auto) 0, Neutrophils (%) (Auto) 62, Lymphocytes (%) (Auto) 23, Monocytes (%) (Auto) 10, Eosinophils (%) (Auto) 5, Basophils (%) (Auto) 1, Neutrophils # (Auto) 4.5, Lymphocytes # (Auto) 1.6, Monocytes # (Auto) 0.7, Eosinophils # (Auto) 0.3, Basophils # (Auto) 0.1, Immature Granulocyte # (Auto) 0.0, Sodium Level 133L, Potassium Level 4.0, Chloride Level 103, Carbon Dioxide Level 22, Anion Gap 8, Blood Urea Nitrogen 10, Creatinine 0.93, Estimat Glomerular Filtration Rate 57, BUN/Creatinine Ratio 11, Glucose Level 98, Calcium Level 8.2L, Corrected Calcium 8.9, Total Bilirubin 0.6, Aspartate Amino Transf (AST/SGOT) 12, Alanine Aminotransferase (ALT/SGPT) 8, Alkaline Phosphatase 66, Total Protein 5.6L, Albumin 3.1L 06/13/20 21:10: Coronavirus (COVID-19)(PCR) Negative 06/17/20 06:03: White Blood Count 7.2, Red Blood Count 3.50L, Hemoglobin 10.7L, Hematocrit 31L, Mean Corpuscular Volume 89, Mean Corpuscular Hemoglobin 31, Mean Corpuscular Hemoglobin Concent 35, Red Cell Distribution Width 13.1, Platelet Count 195, Mean Platelet Volume 9.6, Immature Granulocyte % (Auto) 0, Neutrophils (%) (Auto) 65, Lymphocytes (%) (Auto) 17, Monocytes (%) (Auto) 10, Eosinophils (%) (Auto) 7, Basophils (%) (Auto) 1, Neutrophils # (Auto) 4.7, Lymphocytes # (Auto) 1.3, Monocytes # (Auto) 0.7, Eosinophils # (Auto) 0.5H, Basophils # (Auto) 0.0, Immature Granulocyte # (Auto) 0.0, Sodium Level 132L, Potassium Level 3.6, Chloride Level 99, Carbon Dioxide Level 26, Anion Gap 7, Blood Urea Nitrogen 10, Creatinine 0.75, Estimat Glomerular Filtration Rate > 60, BUN/Creatinine Ratio 13, Glucose Level 98, Calcium Level 7.8L, Corrected Calcium 8.7, Total Bilirubin 0.6, Aspartate Amino Transf (AST/SGOT) 11, Alanine Aminotransferase (ALT/SGPT) 8, Alkaline Phosphatase 62, Total Protein 5.4L, Albumin 2.9L 06/20/20 03:07: White Blood Count 7.3, Red Blood Count 3.64L, Hemoglobin 11.1L, Hematocrit 33L, Mean Corpuscular Volume 90, Mean Corpuscular Hemoglobin 31, Mean Corpuscular Hemoglobin Concent 34, Red Cell Distribution Width 13.2, Platelet Count 211, Mean Platelet Volume 9.6, Immature Granulocyte % (Auto) 1, Neutrophils (%) (Auto) 66, Lymphocytes (%) (Auto) 17, Monocytes (%) (Auto) 11, Eosinophils (%) (Auto) 5, Basophils (%) (Auto) 1, Neutrophils # (Auto) 4.8, Lymphocytes # (Auto) 1.2, Monocytes # (Auto) 0.8, Eosinophils # (Auto) 0.4H, Basophils # (Auto) 0.0, Immature Granulocyte # (Auto) 0.0, Sodium Level 133L, Potassium Level 3.7, Chloride Level 100, Carbon Dioxide Level 24, Anion Gap 9, Blood Urea Nitrogen 8, Creatinine 0.73, Estimat Glomerular Filtration Rate > 60, BUN/Creatinine Ratio 11, Glucose Level 108H, Calcium Level 8.0L, Corrected Calcium 9.0, Total Bilirubin 0.6, Aspartate Amino Transf (AST/SGOT) 13, Alanine Aminotransferase (ALT/SGPT) 10, Alkaline Phosphatase 65, Total Protein 5.4L, Albumin 2.8L, B-Type Natriuretic Peptide 291.9H 06/24/20 04:15: Sodium Level 142, Potassium Level 3.4L, Chloride Level 105, Carbon Dioxide Level 26, Anion Gap 11, Blood Urea Nitrogen 15, Creatinine 0.89, Estimat Glomerular Filtration Rate 60, BUN/Creatinine Ratio 17, Glucose Level 107H, Calcium Level 7.8L, Corrected Calcium 8.8, Total Bilirubin 0.4, Aspartate Amino Transf (AST/SGOT) 9, Alanine Aminotransferase (ALT/SGPT) 9, Alkaline Phosphatase 65, Total Protein 5.3L, Albumin 2.8L 06/24/20 04:46: White Blood Count 7.0, Red Blood Count 3.63L, Hemoglobin 11.1L, Hematocrit 33L, Mean Corpuscular Volume 92, Mean Corpuscular Hemoglobin 31, Mean Corpuscular Hemoglobin Concent 33, Red Cell Distribution Width 13.7, Platelet Count 199, Mean Platelet Volume 9.2, Immature Granulocyte % (Auto) 0, Neutrophils (%) (Auto) 56, Lymphocytes (%) (Auto) 24, Monocytes (%) (Auto) 10, Eosinophils (%) (Auto) 8, Basophils (%) (Auto) 1, Neutrophils # (Auto) 4.0, Lymphocytes # (Auto) 1.7, Monocytes # (Auto) 0.7, Eosinophils # (Auto) 0.6H, Basophils # (Auto) 0.1, Immature Granulocyte # (Auto) 0.0 Microbiology 06/13/20 MRSA Screen - Final, Complete MRSA not isolated Pending Labs Microbiology Date/Time Source Procedure Growth Status 06/13/20 21:10 Nasal MRSA Screen - Final MRSA not isolated Complete Laboratory Tests 06/12/20 06:40: White Blood Count 7.2, Red Blood Count 3.51, Hemoglobin 10.9, Hematocrit 32, Mean Corpuscular Volume 90, Mean Corpuscular Hemoglobin 31, Mean Corpuscular Hemoglobin Concent 34, Red Cell Distribution Width 13.3, Platelet Count 164, Mean Platelet Volume 9.2, Immature Granulocyte % (Auto) 0, Neutrophils (%) (Auto) 62, Lymphocytes (%) (Auto) 23, Monocytes (%) (Auto) 10, Eosinophils (%) (Auto) 5, Basophils (%) (Auto) 1, Neutrophils # (Auto) 4.5, Lymphocytes # (Auto) 1.6, Monocytes # (Auto) 0.7, Eosinophils # (Auto) 0.3, Basophils # (Auto) 0.1, Immature Granulocyte # (Auto) 0.0, Sodium Level 133, Potassium Level 4.0, Chloride Level 103, Carbon Dioxide Level 22, Anion Gap 8, Blood Urea Nitrogen 10, Creatinine 0.93, Estimat Glomerular Filtration Rate 57, BUN/Creatinine Ratio 11, Glucose Level 98, Calcium Level 8.2, Corrected Calcium 8.9, Total Bilirubin 0.6, Aspartate Amino Transf (AST/SGOT) 12, Alanine Aminotransferase (ALT/SGPT) 8, Alkaline Phosphatase 66, Total Protein 5.6, Albumin 3.1 06/13/20 21:10: Coronavirus (COVID-19)(PCR) Negative 06/17/20 06:03: White Blood Count 7.2, Red Blood Count 3.50, Hemoglobin 10.7, Hematocrit 31, Mean Corpuscular Volume 89, Mean Corpuscular Hemoglobin 31, Mean Corpuscular Hemoglobin Concent 35, Red Cell Distribution Width 13.1, Platelet Count 195, Mean Platelet Volume 9.6, Immature Granulocyte % (Auto) 0, Neutrophils (%) (Auto) 65, Lymphocytes (%) (Auto) 17, Monocytes (%) (Auto) 10, Eosinophils (%) (Auto) 7, Basophils (%) (Auto) 1, Neutrophils # (Auto) 4.7, Lymphocytes # (Auto) 1.3, Monocytes # (Auto) 0.7, Eosinophils # (Auto) 0.5, Basophils # (Auto) 0.0, Immature Granulocyte # (Auto) 0.0, Sodium Level 132, Potassium Level 3.6, Chloride Level 99, Carbon Dioxide Level 26, Anion Gap 7, Blood Urea Nitrogen 10, Creatinine 0.75, Estimat Glomerular Filtration Rate > 60, BUN/Creatinine Ratio 13, Glucose Level 98, Calcium Level 7.8, Corrected Calcium 8.7, Total Bilirubin 0.6, Aspartate Amino Transf (AST/SGOT) 11, Alanine Aminotransferase (ALT/SGPT) 8, Alkaline Phosphatase 62, Total Protein 5.4, Albumin 2.9 06/20/20 03:07: White Blood Count 7.3, Red Blood Count 3.64, Hemoglobin 11.1, Hematocrit 33, Mean Corpuscular Volume 90, Mean Corpuscular Hemoglobin 31, Mean Corpuscular Hemoglobin Concent 34, Red Cell Distribution Width 13.2, Platelet Count 211, Mean Platelet Volume 9.6, Immature Granulocyte % (Auto) 1, Neutrophils (%) (Auto) 66, Lymphocytes (%) (Auto) 17, Monocytes (%) (Auto) 11, Eosinophils (%) (Auto) 5, Basophils (%) (Auto) 1, Neutrophils # (Auto) 4.8, Lymphocytes # (Auto) 1.2, Monocytes # (Auto) 0.8, Eosinophils # (Auto) 0.4, Basophils # (Auto) 0.0, Immature Granulocyte # (Auto) 0.0, Sodium Level 133, Potassium Level 3.7, Chloride Level 100, Carbon Dioxide Level 24, Anion Gap 9, Blood Urea Nitrogen 8, Creatinine 0.73, Estimat Glomerular Filtration Rate > 60, BUN/Creatinine Ratio 11, Glucose Level 108, Calcium Level 8.0, Corrected Calcium 9.0, Total Bilirubin 0.6, Aspartate Amino Transf (AST/SGOT) 13, Alanine Aminotransferase (ALT/SGPT) 10, Alkaline Phosphatase 65, Total Protein 5.4, Albumin 2.8, B-Type Natriuretic Peptide 291.9 06/24/20 04:15: Sodium Level 142, Potassium Level 3.4, Chloride Level 105, Carbon Dioxide Level 26, Anion Gap 11, Blood Urea Nitrogen 15, Creatinine 0.89, Estimat Glomerular Filtration Rate 60, BUN/Creatinine Ratio 17, Glucose Level 107, Calcium Level 7.8, Corrected Calcium 8.8, Total Bilirubin 0.4, Aspartate Amino Transf (AST/SGOT) 9, Alanine Aminotransferase (ALT/SGPT) 9, Alkaline Phosphatase 65, Total Protein 5.3, Albumin 2.8 06/24/20 04:46: White Blood Count 7.0, Red Blood Count 3.63, Hemoglobin 11.1, Hematocrit 33, Mean Corpuscular Volume 92, Mean Corpuscular Hemoglobin 31, Mean Corpuscular Hemoglobin Concent 33, Red Cell Distribution Width 13.7, Platelet Count 199, Mean Platelet Volume 9.2, Immature Granulocyte % (Auto) 0, Neutrophils (%) (Auto) 56, Lymphocytes (%) (Auto) 24, Monocytes (%) (Auto) 10, Eosinophils (%) (Auto) 8, Basophils (%) (Auto) 1, Neutrophils # (Auto) 4.0, Lymphocytes # (Auto) 1.7, Monocytes # (Auto) 0.7, Eosinophils # (Auto) 0.6, Basophils # (Auto) 0.1, Immature Granulocyte # (Auto) 0.0 Discharge Home Medications: Active Scripts Active Potassium Chloride 10 Meq Tab.er.prt 10 Meq PO DAILY Lotrimin AF (Miconazole Nitrate) 90 Gm Powder 0 Gm TOP BID Clotrimazole-Betamethasone Crm (Clotrimazole/Betamethasone Dip) 15 Gm Cream..g. 0 Gm TP BID Furosemide 20 Mg Tablet 20 Mg PO DAILY Sodium Chloride 1 Gm Tab 1 Gm PO DAILY Xanax Tablet (Alprazolam) 0.25 Mg Tab 0.25 Mg PO Q8H PRN Amlodipine Besylate 5 Mg Tablet 5 Mg PO DAILY Albuterol Sulfate 2.5 Mg/3 Ml Vial.neb 2.5 Mg INH RTBID Reported Tylenol (Acetaminophen) 325 Mg Tablet 650 Mg PO Q6H PRN TAKES 2 (325MG) TABLETS Clotrimazole 15 Gm Cream..g. 1 Applic TP DAILY PRN Clotrimazole 10 Gm Powder 1 Applic TOP DAILY PRN Carvedilol 12.5 Mg Tablet 6.25 Mg PO BID TAKES OF A 12.5MG TABLET Mirtazapine 15 Mg Tablet 7.5 Mg PO HS TAKES OF A 15MG TABLET Timolol Maleate 0.5% (Timolol Maleate) 5 Ml Drops 1 Drop OS BID Benazepril HCl 40 Mg Tab 20 Mg PO DAILY TAKES OF A 40MG TABLET Aspirin EC (Aspirin) 81 Mg Tablet.dr 81 Mg PO DAILY Pantoprazole Sodium 40 Mg Tablet.dr 40 Mg PO 1900 Instructions to patient/family Please see electronic discharge instructions given to patient. Diagnosis/Problems Diagnosis/Problems (1) Debility (2) Generalized weakness Status: Acute (3) Hyponatremia Status: Acute (4) Electrolyte abnormality (5) Essential (primary) hypertension Status: Chronic MARKO ANDERS DO Jun 25, 2020 05:24
[2020-06-25 05:49] VITALS: BP 164/72
[2020-06-25] MEDS: METOCLOPRAMIDE 5 MG (REGLAN) TAB PO SCH ×2 (06:21→16:31)
[2020-06-25] MEDS: RT-ALBUTEROL SULF 2.5 MG/3 ML PRE-MIX VIAL INH SCH (06:43)
[2020-06-25] MEDS ORDERED: KCL 10 MEQ TAB (MICRO K) PO SCH (07:00)
[2020-06-25] MEDS: lisINopril 20 MG (PRINIVIL) TABLET PO SCH (08:01)
[2020-06-25] MEDS: FUROSEMIDE 20 MG (LASIX) TAB PO SCH (08:01)
[2020-06-25] MEDS: SENNA W/DOCUSATE (SENOKOT S) TABLET PO SCH (08:01)
[2020-06-25] MEDS: CARVEDILOL 12.5 MG (COREG) TABLET PO SCH (08:01)
[2020-06-25] MEDS: amLODIPine 5 MG (NORVASC) TAB PO SCH (08:01)
[2020-06-25] MEDS: DOCUSATE SODIUM 100 MG (COLACE) CAP PO SCH (08:01)
[2020-06-25] MEDS: ASPIRIN E.C. 81 MG (ECOTRIN) TAB PO SCH (08:01)
[2020-06-25] MEDS: MICONAZOLE 2% POWDER (DESENEX AF) 90 GM TOP SCH (08:02)
[2020-06-25] MEDS: polyethylene glycoL POWDER 17 GM (MIRALAX) PACK PO SCH (08:02)
[2020-06-25] MEDS: CLOTRIMAZOLE 1% CREAM (LOTRIMIN) 30 GM TOP SCH (08:03)
[2020-06-25] MEDS: TIMOLOL MALEATE 0.5% 5 ML (TIMOPTIC) BTL OS SCH (08:04)
[2020-06-25] MEDS: BETAMETHASONE/CLOTRIM CREAM (LOTRISONE) 45 GM TP SCH (08:05)
[2020-06-25] MEDS: SODIUM CHLORIDE 1 GM TABLET PO SCH (08:05)
[2020-06-25 08:07] VITALS: BP 145/66
--- NOTE | 2020-06-25 08:25 | Therapy Team Discharge Summary ---
Therapy Discharge Summary Discharge Recommendations Date of Discharge Physical Therapy Patient came to rehab with Hyponatremia/Nausea. Upon evaluation patient performed bed mobility with independence, supine <-> sit with SBA, sit <-> stand and transfers with CGA, car transfer CGA, ambulated 200' with a rolling walker with CGA (including 50' with at least 2 turns of 90 degrees and 10' over an uneven surface), and can go up and down 1 step using a rolling walker with min assist. Patient has been performing bed mobility and transfer training, balance and endurance training, functional strengthening, stair training, gait training, and education. 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 Now, patient performs bed mobility and transfers with independence, car transfer SBA, ambulates 150' with a rolling walker with setup (including 50' with at le ast 2 turns of 90 degrees and 10' over an uneven surface), patient declines stairs. Patient is discharging from this facility today and will be discharged from PT at this time. Occupational Therapy Decreased Activ Tolerance PT Instructor Programmable Controllers Goals Instructor Programmable Controllers Goals PT Senior Care Goals Time Frame: Jul 02, 2020 Roll Left to Right (QC): 6 Sit to Lying (QC): 6 Lying-Sitting on Side/Bed(QC): 6 Sit to Stand (QC): 6 Chair/Lrf-nv-Tykqp Xfer(QC): 6 Car Transfer (QC): 6 Does the Patient Walk: Yes Walk 10 feet (QC): 6 Walk 10ft-Uneven Surface(QC): 6 Walk 50ft with 2 Turns (QC): 6 Walk 150 ft (QC): 6 Does the Pt use WC or Scooter?: No Wheel 50 feet with 2 turns (QC: 9 1 Step (curb) (QC): 6 4 Steps (QC): 5 12 Steps (QC): 9 Picking up an Object (QC): 5 OT Instructor Programmable Controllers Goals Senior Care Goals Time Frame: Jul 02, 2020 Eating (FIM): 6 Eating (QC): 6 Oral Hygiene (QC): 6 Shower/Bathe Self (QC): 5 Upper Body Dressing (QC): 6 Lower Body Dressing (QC): 5 On/Off Footwear (QC): 5 (With AE) Toileting(FIM): 6 Toileting Hygiene (QC): 6 Toilet/Commode Transfer (QC): 6 Additional Goals: 1-Demonstrate ADL Tasks, 2-Verbalize Understanding, 3- ImproveStrength/Jasper 1=Demonstrate adherence to instructed precautions during ADL tasks. 2=Patient will verbalize/demonstrate understanding of assistive devices/modifications for ADL. 3=Patient will improve strength/tolerance for activity to enable patient to perform ADL's. JUVENCIO HAHN PT Jun 25, 2020 08:25
--- NOTE | 2020-06-25 08:41 | Cardiology Progress Note ---
Subjective Date Seen by Provider: Jun 25, 2020 Time Seen by Provider: 08:15 Subjective/Events-last exam Patient is sitting up in chair, denies any chest pain. Review of Systems General: No Chills, No Night Sweats, No Fatigue, No Malaise, No Appetite, No Other HEENT: No Head Aches, No Visual Changes, No Eye Pain, No Ear Pain, No Dysphasia, No Sinus Congestion, No Post Nasal Drip, No Sore Throat, No Other Pulmonary: No Dyspnea, No Cough, No Pleuritic Chest Pain, No Other Cardiovascular: No: Chest Pain, Palpitations, Orthopnea, Paroxysmal Noc. Dyspnea, Edema, Lt Headedness, Other Objective-Cardiology Exam Last Set of Vital Signs Vital Signs 06/25/20 06/25/20 06/25/20 06/25/20 05:49 06:43 08:07 09:36 Temp 36.0 Pulse 79 Resp 20 B/P (MAP) 145/66 (92) Pulse Ox 92 O2 Delivery Room Air Capillary Refill : I&O Intake and Output 06/25/20 00:00 Intake Total 1100 ml Balance 1100 ml Intake Oral 1100 ml # Voids 9 General: Alert, Oriented X3, Cooperative HEENT: Atraumatic, PERRLA Neck: Supple, No JVD, No Thyromegaly Lungs: Clear to Auscultation, Normal Air Movement Heart: Regular Rate, Normal S1, Normal S2, No Murmurs Abdomen: Normal Bowel Sounds, Soft, No Tenderness, No Hepatosplenomegaly, No Masses Extremities: Other (+1 edema BLE) Skin: No Rashes Neuro: Normal Gait, Cranial Nerves 3-12 NL Psych/Mental Status: Mental Status NL, Mood NL A/P-Cardiology Admission Diagnosis Hyponatremia HTN Dyspnea HLP Assessment/Plan Generalized debility/weakness, continue with PT/OT Hyponatremia, improving, HCTZ discontinued, currently on fluid restriction Hypertension, controlled, continue to monitor Dyspnea, patient reports improvement. Echocardiogram was done on 06/19/2020 showing normal LV size, EF 55-65 percent, grade 2 diastolic dysfunction, left atrium moderately dilated. Chronic lower extremity edema, patient reports worsening over the past month. I will diurese, continue with Michel wraps. Hyperlipidemia, monitor as outpatient. Mild bilateral carotid stenosis, last ultrasound was done in September 2019, continue to monitor Mild pulmonary hypertension, last echocardiogram was done in September 2019 showing PA pressure 40-45 mmHg. Continue to monitor Multiple risk factors for underlying coronary artery disease, last stress test done in September 2019 showing no significant ischemia. Continue to monitor GERD OK for discharge from cardiology standpoint, f/u in 4 weeks in our office Patient was seen and evaluated with Bridget, examination performed, management plan was discussed, agree with the current scribed note, I made few changes to the note using Italic font Patient was seen at bedside, feeling better Swelling is better Okay for discharge and arrange for follow-up as an outpatient BRIDGET VELASQUEZ Jun 25, 2020 08:41 MARIA ELENA DUDLEY MD Jun 25, 2020 10:59
--- NOTE | 2020-06-25 14:09 | Therapy Team Discharge Summary ---
Therapy Discharge Summary Discharge Recommendations Date of Discharge 06-25-20 Occupational Therapy Pt. has been seen by Occupational therapy to increase overall strength and independence. Pt. is at prior baseline level. She is doing well, and has made great gains. Pt. continues to require assistance with LE dressing, as she did prior, and her family helps her. Pt. is to discharge home with continued family support. No Adaptive equipment needed at this time. PT Operating Room Scheduler Goals Operating Room Scheduler Goals PT Operating Room Scheduler Goals Time Frame: Jul 02, 2020 Roll Left to Right (QC): 6 Sit to Lying (QC): 6 Lying-Sitting on Side/Bed(QC): 6 Sit to Stand (QC): 6 Chair/Vid-au-Cfbiu Xfer(QC): 6 Car Transfer (QC): 6 Does the Patient Walk: Yes Walk 10 feet (QC): 6 Walk 10ft-Uneven Surface(QC): 6 Walk 50ft with 2 Turns (QC): 6 Walk 150 ft (QC): 6 Does the Pt use WC or Scooter?: No Wheel 50 feet with 2 turns (QC: 9 1 Step (curb) (QC): 6 4 Steps (QC): 5 12 Steps (QC): 9 Picking up an Object (QC): 5 OT Shelter Goals Operating Room Scheduler Goals Time Frame: Jul 02, 2020 Eating (FIM): 6 (met) Eating (QC): 6 (met) Oral Hygiene (QC): 6 (met) Shower/Bathe Self (QC): 5 (met) Upper Body Dressing (QC): 6 (not met) Lower Body Dressing (QC): 5 (not met) On/Off Footwear (QC): 5 (With AE) Toileting(FIM): 6 (met) Toileting Hygiene (QC): 6 (met) Toilet/Commode Transfer (QC): 6 (met) Additional Goals: 1-Demonstrate ADL Tasks, 2-Verbalize Understanding, 3- ImproveStrength/Jasper 1=Demonstrate adherence to instructed precautions during ADL tasks. 2=Patient will verbalize/demonstrate understanding of assistive devices/modifications for ADL. 3=Patient will improve strength/tolerance for activity to enable patient to perform ADL's. GLENNA DE PAZ OT Jun 25, 2020 14:09
[2020-06-25 16:00] VITALS: BP 131/60
[2020-06-25] MEDS: PANTOPRAZOLE 40 MG (PROTONIX) TAB PO SCH (18:02)
[2020-06-25 18:21] VITALS: BP 131/60
[2020-06-25] MEDS ORDERED: CARVEDILOL 6.25 MG (COREG) TAB PO SCH (21:00)
== END 2020-06-25 18:30 | disposition home health service (06) | DRG 641 ==
PROVIDERS: ADMIT Internal Medicine; ATTEND Internal Medicine
DX: E87.1 Hypo-osmolality and hyponatremia (principal); R53.1 Weakness; K44.9 Diaphragmatic hernia without obstruction or gangrene; I27.20 Pulmonary hypertension, unspecified; I35.1 Nonrheumatic aortic (valve) insufficiency; R13.10 Dysphagia, unspecified; E78.00 Pure hypercholesterolemia, unspecified; I10 Essential (primary) hypertension; Z20.822 Contact with and (suspected) exposure to COVID-19; K21.9 Gastro-esophageal reflux disease without esophagitis; K59.09 Other constipation; K57.90 Diverticulosis of intestine, part unspecified, without perforation or abscess without bleeding; M19.91 Primary osteoarthritis, unspecified site; E21.5 Disorder of parathyroid gland, unspecified; H54.3 Unqualified visual loss, both eyes; H91.90 Unspecified hearing loss, unspecified ear; B35.1 Tinea unguium; G62.9 Polyneuropathy, unspecified; Z79.82 Long term (current) use of aspirin; Z82.49 Family history of ischemic heart disease and other diseases of the circulatory system; Z88.0 Allergy status to penicillin
CPT/HCPCS: 36415; 71045; 80053; 83880; 85025; 87081; 87635; 93306; 94640; 94664; 94760

== ENCOUNTER → 2020-06-14 | Day surgery (SDC) | payer MEDICARE ==
[~2020-06-14] MED LIST changes: -ACETAMINOPHEN 500 MG TAB (TYLENOL) PO PRN; +ALBU2.5V4 INH; -BISACODYL 10 MG SUPP (DULCOLAX) PR PRN; -CALCIUM CARBONATE 500 MG (TUMS) TAB.CHEW PO PRN; +CLOT15CR6 TP; -DOCUSATE SODIUM 100 MG (COLACE) CAP PO PRN; -FLEET ENEMA ADULT 1 EA BTL PR PRN; +FURO20TA4 PO; +HURRICAINE EXT TUBE (BENZOCAINE) XX PRN; +LACTATED RINGERS 1,000 ML IV ONE; +LACTATED RINGERS 1,000 ML IV STA; -LACTULOSE SYRUP 10GM/15ML (ENULOSE) 30ML UDC PO PRN; -LOPERAMIDE 2 MG (IMODIUM) TABLET PO PRN; +MICO90PO TOP; +NF-NACL1GT PO; -ONDANSETRON 4 MG (ZOFRAN) ORAL DISSOLVE TAB PO PRN; +POTA10TA36 PO; -diphenhydrAMINE 25 MG TAB (BENADRYL) PO PRN; -guaiFENesin/CODEINE (ROBITUSSIN AC) 10ML UDC PO PRN; +proPOfol 200 MG/20 ML (DIPRIVAN) VIAL IV ONE
[2020-06-14 11:45] VITALS: BP 131/63
[2020-06-14 11:50] VITALS: BP 161/66
--- NOTE | 2020-06-14 12:03 | Progress Note-Post Operative ---
Post-Operative Progess Note Surgeon (s)/Regional Branch Manager (s) Surgeon KALEY JEWELL DO Regional Branch Manager: none Pre-Operative Diagnosis Anemia, abd pain, GERD, dysphagia Post-Operative Diagnosis Gastritis Small Hiatal hernia Bile reflux Procedure & Operative Findings Date of Procedure 06/14/20 Procedure Performed/Findings EGD with bx Anesthesia Type IV sedation by COMPENSATION BUSINESS PARTNER Estimated Blood Loss Estimated blood loss (mL): scant Specimens/Packing Specimens Removed antral bx GE jxn bx KALEY JEWELL DO Jun 14, 2020 12:03
--- NOTE | 2020-06-14 12:04 | Endoscopy Discharge Instruct ---
Endo Procedure/Findings Findings 1.: Gastritis 2.: Hiatal Hernia 3.: Other Findings (bile reflux) Discharge Instructions - Activity: You might feel a little sleepy until tomorrow. This is due to the medicine you received to relax you. Until tomorrow, you should: NOT drive a car, operate machinery or power tools. NOT drink any alcoholic beverages. NOT make any important decisions or sign importortant papers. Do not return to work until tomorrow, unless otherwise instructed. Resume previous activities tomorrow. Diet: Start by taking liquids. If you tolerate liquids, advance to solid food. 1.: EGD in 3 years Notify Physician - If you experience excessive bleeding, unusual abdominal pain, fever, or chest pain, contact your doctor immediately. KALEY JEWELL DO Jun 14, 2020 12:04
--- NOTE | 2020-06-15 00:46 | OPERATIVE REPORT ---
DATE OF SERVICE: PREOPERATIVE DIAGNOSES: Anemia, abdominal pain. POSTOPERATIVE DIAGNOSES: Gastritis, small hiatal hernia and bile reflux. PROCEDURE: EGD with biopsy. SURGEON: Fili Astorga DO HERBARIUM WORKER: None. ANESTHESIA: IV sedation by the WHEELAGE CLERK. SPECIMEN: Biopsy of the antrum, biopsy of the GE junction. BLOOD LOSS: Scant. FLUIDS: Per anesthesia. POSTOPERATIVE CONDITION: Stable. INDICATION FOR PROCEDURE: The patient is an 84-year-old female who has had a history of anemia and was scheduled for an EGD performed, but then decided not to have it. She had been having some abdominal pain, maybe some dysphagia and needed a workup. FINDINGS: The patient had some gastritis, small hiatal hernia. She did have a lot of bile reflux, in fact bile came all the way up into her esophagus. PROCEDURE NOTE: After informed consent was obtained, the patient was brought to the endoscopy suite, placed in bed in left lateral decubitus position. She was administered IV sedation by the WHEELAGE CLERK who then monitored her vitals the entire time, heart rate, blood pressure and pulse ox and the scope was inserted down the mouth through the esophagus into the stomach. On the way in down, noted a small hiatal hernia. There was a lot of bile and bubbles. Some mild gastritis in the stomach, pushed through the duodenum, looked in the first and second portion of the duodenum and possibly a third which looked normal. Pulled back and did a biopsy of the antrum. Retroflexed the scope, had a really hard time seeing a small hiatal hernia because of bubbles in the bile, bile was actually refluxed up into the esophagus as well. Pulled the scope into the GE junction, did a biopsy here, then pushed the scope back into the stomach, suctioned all the air out and then pulled the scope up the esophagus where the bile had refluxing all the way back up into her mouth, suctioned all the way out. The patient tolerated the procedure. She was recovered in endoscopy suite. Job ID: [id number] DocumentID: [id number] Dictated Date: 06/14/2020 17:19:35 Gas Generator Operator Date: 06/15/2020 00:44:54 Dictated By: FILI ASTORGA DO [facility]
== END ==
LOC: ENDO 11:00
PROVIDERS: ATTEND Surgery
DX: K44.9 Diaphragmatic hernia without obstruction or gangrene (principal); K29.50 Unspecified chronic gastritis without bleeding; K21.00 Gastro-esophageal reflux disease with esophagitis, without bleeding; D64.9 Anemia, unspecified; I10 Essential (primary) hypertension; E78.00 Pure hypercholesterolemia, unspecified; E87.1 Hypo-osmolality and hyponatremia; M19.90 Unspecified osteoarthritis, unspecified site; Z79.82 Long term (current) use of aspirin; Z79.899 Other long term (current) drug therapy; Z88.0 Allergy status to penicillin; Z90.710 Acquired absence of both cervix and uterus
CPT/HCPCS: 88305; 88342

== ENCOUNTER → 2020-08-28 | Outpatient (CLI) | payer MEDICARE ==
[~2020-08-28] MED LIST changes: -HURRICAINE EXT TUBE (BENZOCAINE) XX PRN; -LACTATED RINGERS 1,000 ML IV ONE; -LACTATED RINGERS 1,000 ML IV STA; -proPOfol 200 MG/20 ML (DIPRIVAN) VIAL IV ONE
[2020-08-28 11:07] LABS: BASOPHILS # (AUTO) 0.1 10^3/uL (0.0-0.1); BASOPHILS % (AUTO) 1 % (0-10); EOSINOPHILS # (AUTO) 0.5 10^3/uL (0.0-0.3); EOSINOPHILS % (AUTO) 8 % (0-10); HEMATOCRIT 40 % (35-52); HEMOGLOBIN 13.2 g/dL (11.5-16.0); LYMPHOCYTES # (AUTO) 1.6 10^3/uL (1.0-4.0); LYMPHOCYTES % (AUTO) 23 % (12-44); MEAN CORPUSCULAR HEMOGLOBIN 30 pg (25-34); MEAN CORPUSCULAR HGB CONC 33 g/dL (32-36); MEAN CORPUSCULAR VOLUME 90 fL (80-99); MEAN PLATELET VOLUME 9.5 fL (9.0-12.2); MONOCYTES # (AUTO) 0.6 10^3/uL (0.0-1.0); MONOCYTES % (AUTO) 8 % (0-12); NEUTROPHILS # (AUTO) 4.3 10^3/uL (1.8-7.8); NEUTROPHILS % (AUTO) 61 % (42-75); PLATELET COUNT 159 10^3/uL (130-400); WHITE BLOOD COUNT 7.1 10^3/uL (4.3-11.0)
[2020-08-28 11:31] LABS: ALANINE AMINOTRANSFERASE 8 U/L (0-55); ALBUMIN 3.4 GM/DL (3.2-4.5); ALKALINE PHOSPHATASE 76 U/L (40-136); BILIRUBIN,TOTAL 0.8 MG/DL (0.1-1.0); BUN/CREATININE RATIO 19; CALCIUM 8.9 MG/DL (8.5-10.1); CARBON DIOXIDE 28 MMOL/L (21-32); CHLORIDE 107 MMOL/L (98-107); CHOLESTEROL 200 MG/DL (< 200); CREATININE SERUM 0.78 MG/DL (0.60-1.30); GFR ESTIMATED > 60; GLUCOSE 108 MG/DL (70-105); HDL CHOLESTEROL 43 MG/DL (40-60); POTASSIUM 3.8 MMOL/L (3.6-5.0); SODIUM 142 MMOL/L (135-145); TOTAL PROTEIN 6.5 GM/DL (6.4-8.2); TRIGLYCERIDES 106 MG/DL (<150); VLDL CHOLESTEROL 21 MG/DL (5-40)
== END ==
LOC: LAB 10:58
PROVIDERS: ATTEND Internal Medicine
DX: Z13.6 Encounter for screening for cardiovascular disorders (principal); E03.9 Hypothyroidism, unspecified; D64.9 Anemia, unspecified; R73.9 Hyperglycemia, unspecified
CPT/HCPCS: 36415; 80053; 80061; 82728; 83036; 83540; 83550; 84436; 84443; 85025

== ENCOUNTER 2020-09-04 10:20 | Outpatient (RCR) | payer MEDICARE ==
[2020-08-28 11:00] LABS: BASOPHILS # (AUTO) 0.1 10^3/uL (0.0-0.1); BASOPHILS % (AUTO) 1 % (0-10); EOSINOPHILS # (AUTO) 0.5 10^3/uL (0.0-0.3); EOSINOPHILS % (AUTO) 8 % (0-10); HEMATOCRIT 40 % (35-52); HEMOGLOBIN 13.2 g/dL (11.5-16.0); LYMPHOCYTES # (AUTO) 1.6 10^3/uL (1.0-4.0); LYMPHOCYTES % (AUTO) 23 % (12-44); MEAN CORPUSCULAR HEMOGLOBIN 30 pg (25-34); MEAN CORPUSCULAR HGB CONC 33 g/dL (32-36); MEAN CORPUSCULAR VOLUME 90 fL (80-99); MEAN PLATELET VOLUME 9.5 fL (9.0-12.2); MONOCYTES # (AUTO) 0.6 10^3/uL (0.0-1.0); MONOCYTES % (AUTO) 8 % (0-12); NEUTROPHILS # (AUTO) 4.3 10^3/uL (1.8-7.8); NEUTROPHILS % (AUTO) 61 % (42-75); PLATELET COUNT 159 10^3/uL (130-400); WHITE BLOOD COUNT 7.1 10^3/uL (4.3-11.0)
[2020-08-28 11:33] LABS: ALANINE AMINOTRANSFERASE 8 U/L (0-55); ALBUMIN 3.4 GM/DL (3.2-4.5); ALKALINE PHOSPHATASE 77 U/L (40-136); BILIRUBIN,TOTAL 0.7 MG/DL (0.1-1.0); BUN/CREATININE RATIO 20; CALCIUM 8.7 MG/DL (8.5-10.1); CARBON DIOXIDE 28 MMOL/L (21-32); CHLORIDE 107 MMOL/L (98-107); CREATININE SERUM 0.76 MG/DL (0.60-1.30); GFR ESTIMATED > 60; GLUCOSE 107 MG/DL (70-105); POTASSIUM 3.8 MMOL/L (3.6-5.0); SODIUM 141 MMOL/L (135-145); TOTAL PROTEIN 6.5 GM/DL (6.4-8.2)
[~2020-09-04 10:20] MED LIST changes: +MIRT-68 PO; -MIRT15TA6 PO; -SULF1TAB35 PO; +SULF1TAB38 PO
== END 2020-11-26 | disposition home or self-care (01) ==
LOC: ONC 10:20
PROVIDERS: ATTEND Internal Medicine Hematology & Oncology
DX: D50.8 Other iron deficiency anemias (principal); K29.70 Gastritis, unspecified, without bleeding; E87.1 Hypo-osmolality and hyponatremia; R60.9 Edema, unspecified
CPT/HCPCS: 80053; 82728; 85025; 99213

== ENCOUNTER → 2022-04-07 | Outpatient (CLI) | payer MEDICARE ==
[~2022-04-07] MED LIST changes: -BENA40TA5 PO; +BENA40TA84 PO; +POTA-177 PO; -POTA10TA36 PO
== END ==
LOC: CARD 08:48
PROVIDERS: ATTEND Internal Medicine Cardiovascular Disease
DX: Z51.11 Encounter for antineoplastic chemotherapy (principal); I11.9 Hypertensive heart disease without heart failure; I08.0 Rheumatic disorders of both mitral and aortic valves
CPT/HCPCS: 93306